=== PATIENT | male | born 1945 | race Caucasian/White ===

== ENCOUNTER → 2017-09-07 10:08 | Outpatient (CLI) | payer MEDICARE, SELFPAY ==
[2017-09-07 12:21] LABS: Absolute Lymphocyte Count 1.14 X10^3/ul (0.83-4.51); Absolute Neutrophil Count 3.6 X10^3/uL (2.0-7.7); Basophil# 0.03 X10^3/uL; Basophil% 0.5 % (0-1); Eosinophil# 0.32 X10^3/uL; Eosinophils% 5.8 % (0-5); Hematocrit 40.1 % (40-54); Lymphocyte # 1.14 X10^3/ul (4.0); Lymphocyte % 20.7 % (19-41); Mean Corp Hgb Conc 32.4 g/gl (32-36); Mean Corpuscular Hgb 29.7 pg (27.0-32.0); Mean Corpuscular Volume 91.6 fL (80-94); Mean Platelet Vol. 10.6 fl (6.2-12.0); Monocyte# 0.45 X10^3/uL; Monocyte% 8.2 % (0-10); Neutrophil # 3.56 X10^3/uL (2.7-7.7); Neutrophil % 64.6 % (47-70); Platelet Count 151 K/mm3 (150-450); RBC Distribution Width CV 12.9 % (11.6-14.6); Red Blood Count 4.38 M/mm3 (4.6-6.2); White Blood Count 5.5 K/mm3 (4.4-11.0)
[2017-09-07 12:23] LABS: POSITIVE COUNT NO; POSITIVE DIFFERENTIAL NO; POSITIVE MORPHOLOGY NO
[2017-09-07 12:29] LABS: AST(SGOT) 22 U/L (15-37); Alanine Aminotransfer ALT/SGPT 30 U/L (16-61); Albumin, Serum 3.7 g/dL (3.2-5.0); Alkaline Phosphatase 76 U/L (45-117); Anion Gap 3 (5-15); BUN 17 mg/dL (7-18); BUN/Creat Ratio 16.2 RATIO (10-20); Calcium,Total 8.7 mg/dL (8.5-10.1); Chloride 102 mmol/L (98-107); Creatinine, Serum 1.05 mg/dL (0.70-1.30); EST Glomerular Filtration Rate 74 mL/min (>60); Est Glom Filt Rate - Afr Amer 89 mL/min (>60); Globulin 3.6 g/dL (2.2-4.2); Glucose 108 mg/dL (74-106); Potassium 4.1 mmol/L (3.5-5.1); Protein, Total 7.3 g/dL (6.4-8.2); Sodium Level 137 mmol/L (136-145)
== END ==
PROVIDERS: Family Provider Family Medicine; PCP Family Medicine; Visit Provider Internal Medicine Rheumatology
DX: M17.0 Bilateral primary osteoarthritis of knee (principal); M16.0 Bilateral primary osteoarthritis of hip; M19.012 Primary osteoarthritis, left shoulder; M18.12 Unilateral primary osteoarthritis of first carpometacarpal joint, left hand
CPT/HCPCS: 36415; 80053; 85025

== ENCOUNTER → 2018-01-04 11:10 | Outpatient (CLI) | payer MEDICARE, OTHER, SELFPAY ==
--- NOTE | 2018-01-04 11:10 | DT_ITS ---
This patient was seen during an EMR downtime December 28, 2017 - January 04, 2018. This patient may have a combination of paper and electronic documentation or all paper documentation. All documentation is viewable within the e-chart portion of [employer] for each patient visit.
[2018-01-04 12:21] LABS: PSA,Total - Annual Screen 1.72 ng/mL (0.00-4.00)
== END ==
PROVIDERS: Family Provider Family Medicine; PCP Family Medicine; Visit Provider Urology
DX: Z12.5 Encounter for screening for malignant neoplasm of prostate (principal)
CPT/HCPCS: 36415; 84153; G0103

== ENCOUNTER → 2018-03-01 13:46 | Outpatient (CLI) | payer MEDICARE, OTHER, SELFPAY ==
[2018-03-01 14:52] LABS: Absolute Lymphocyte Count 1.58 X10^3/ul (0.83-4.51); Absolute Neutrophil Count 4.4 X10^3/uL (2.0-7.7); Basophil# 0.06 X10^3/uL; Basophil% 0.9 % (0-1); Eosinophil# 0.28 X10^3/uL; Eosinophils% 4.3 % (0-5); Hematocrit 40.6 % (40-54); Hemoglobin 12.7 g/dl (13.0-16.5); Lymphocyte # 1.58 X10^3/ul (4.0); Lymphocyte % 24.3 % (19-41); Mean Corp Hgb Conc 31.3 g/gl (32-36); Mean Corpuscular Volume 92.7 fL (80-94); Mean Platelet Vol. 9.8 fl (6.2-12.0); Monocyte# 0.24 X10^3/uL; Monocyte% 3.7 % (0-10); Neutrophil # 4.35 X10^3/uL (2.7-7.7); Neutrophil % 66.8 % (47-70); Platelet Count 179 K/mm3 (150-450); RBC Distribution Width CV 13.1 % (11.6-14.6); RBC Distribution Width SD 44.5 fl (35.1-43.9); Red Blood Count 4.38 M/mm3 (4.6-6.2); White Blood Count 6.5 K/mm3 (4.4-11.0)
[2018-03-01 14:56] LABS: POSITIVE COUNT NO; POSITIVE DIFFERENTIAL NO; POSITIVE MORPHOLOGY NO
[2018-03-01 15:00] LABS: AST(SGOT) 28 U/L (15-37); Alanine Aminotransfer ALT/SGPT 40 U/L (16-61); Albumin, Serum 3.9 g/dL (3.2-5.0); Alkaline Phosphatase 78 U/L (45-117); Anion Gap 3 (5-15); BUN 21 mg/dL (7-18); BUN/Creat Ratio 20.4 RATIO (10-20); Chloride 106 mmol/L (98-107); Creatinine, Serum 1.03 mg/dL (0.70-1.30); EST Glomerular Filtration Rate 75 mL/min (>60); Est Glom Filt Rate - Afr Amer 91 mL/min (>60); Glucose 143 mg/dL (74-106); Potassium 4.5 mmol/L (3.5-5.1); Protein, Total 7.9 g/dL (6.4-8.2); Sodium Level 139 mmol/L (136-145)
== END ==
PROVIDERS: Family Provider Family Medicine; PCP Family Medicine; Visit Provider Internal Medicine Rheumatology
DX: M17.0 Bilateral primary osteoarthritis of knee (principal); M16.0 Bilateral primary osteoarthritis of hip; M19.012 Primary osteoarthritis, left shoulder; M18.12 Unilateral primary osteoarthritis of first carpometacarpal joint, left hand
CPT/HCPCS: 36415; 80053; 85025

== ENCOUNTER → 2018-08-31 13:10 | Outpatient (CLI) | payer MEDICARE, OTHER, SELFPAY ==
[2017-01-23 12:09] VITALS: BMI 30.2
[2018-08-31 14:05] LABS: Absolute Lymphocyte Count 1.21 X10^3/ul (0.83-4.51); Basophil# 0.05 X10^3/uL; Basophil% 0.9 % (0-1); Eosinophil# 0.19 X10^3/uL; Eosinophils% 3.2 % (0-5); Hematocrit 41.1 % (40-54); Lymphocyte # 1.21 X10^3/ul (4.0); Lymphocyte % 20.7 % (19-41); Mean Corp Hgb Conc 31.6 g/gl (32-36); Mean Corpuscular Hgb 29.1 pg (27.0-32.0); Mean Corpuscular Volume 92.2 fL (80-94); Mean Platelet Vol. 9.6 fl (6.2-12.0); Monocyte# 0.37 X10^3/uL; Monocyte% 6.3 % (0-10); Neutrophil # 4.02 X10^3/uL (2.7-7.7); Neutrophil % 68.7 % (47-70); Platelet Count 172 K/mm3 (150-450); RBC Distribution Width CV 13.1 % (11.6-14.6); RBC Distribution Width SD 43.7 fl (35.1-43.9); Red Blood Count 4.46 M/mm3 (4.6-6.2); White Blood Count 5.9 K/mm3 (4.4-11.0)
[2018-08-31 14:08] LABS: POSITIVE COUNT NO; POSITIVE DIFFERENTIAL NO; POSITIVE MORPHOLOGY NO
[2018-08-31 14:25] LABS: AST(SGOT) 25 U/L (15-37); Alanine Aminotransfer ALT/SGPT 36 U/L (16-61); Albumin, Serum 3.8 g/dL (3.2-5.0); Alkaline Phosphatase 77 U/L (45-117); Anion Gap 4 (5-15); BUN 17 mg/dL (7-18); Calcium,Total 8.8 mg/dL (8.5-10.1); Chloride 105 mmol/L (98-107); EST Glomerular Filtration Rate 78 mL/min (>60); Est Glom Filt Rate - Afr Amer 94 mL/min (>60); Globulin 3.7 g/dL (2.2-4.2); Glucose 93 mg/dL (74-106); Potassium 4.7 mmol/L (3.5-5.1); Protein, Total 7.5 g/dL (6.4-8.2); Sodium Level 138 mmol/L (136-145)
== END ==
PROVIDERS: Family Provider Family Medicine; PCP Family Medicine; Referring Provider Internal Medicine Rheumatology; Visit Provider Internal Medicine Rheumatology
DX: M17.0 Bilateral primary osteoarthritis of knee (principal); M16.0 Bilateral primary osteoarthritis of hip; M19.012 Primary osteoarthritis, left shoulder; M18.12 Unilateral primary osteoarthritis of first carpometacarpal joint, left hand
CPT/HCPCS: 36415; 80053; 85025

== ENCOUNTER → 2018-09-23 11:00 | Outpatient (CLI) | payer MEDICARE, OTHER, SELFPAY | PROVIDERS: Family Provider Family Medicine; PCP Family Medicine; Referring Provider Family Medicine; Visit Provider Family Medicine | DX: G47.33 Obstructive sleep apnea (adult) (pediatric) (principal) | CPT/HCPCS: 98960; G0463 ==

== ENCOUNTER → 2018-12-28 10:52 | Outpatient (CLI) | payer MEDICARE, OTHER, SELFPAY ==
[2017-01-23 12:09] VITALS: BMI 30.2
[2018-12-28 12:16] LABS: Absolute Lymphocyte Count 1.03 X10^3/ul (0.83-4.51); Absolute Neutrophil Count 4.2 X10^3/uL (2.0-7.7); Basophil# 0.02 X10^3/uL; Basophil% 0.3 % (0-1); Eosinophil# 0.23 X10^3/uL; Hematocrit 37.9 % (40-54); Lymphocyte # 1.03 X10^3/ul (4.0); Lymphocyte % 17.8 % (19-41); Mean Corp Hgb Conc 31.7 g/gl (32-36); Mean Corpuscular Hgb 28.6 pg (27.0-32.0); Mean Corpuscular Volume 90.5 fL (80-94); Mean Platelet Vol. 9.6 fl (6.2-12.0); Monocyte# 0.33 X10^3/uL; Monocyte% 5.7 % (0-10); Neutrophil # 4.19 X10^3/uL (2.7-7.7); Neutrophil % 72.2 % (47-70); Platelet Count 166 K/mm3 (150-450); RBC Distribution Width CV 13.2 % (11.6-14.6); RBC Distribution Width SD 42.7 fl (35.1-43.9); Red Blood Count 4.19 M/mm3 (4.6-6.2); White Blood Count 5.8 K/mm3 (4.4-11.0)
[2018-12-28 12:21] LABS: POSITIVE COUNT NO; POSITIVE DIFFERENTIAL NO; POSITIVE MORPHOLOGY NO
[2018-12-28 12:34] LABS: AST(SGOT) 23 U/L (15-37); Alanine Aminotransfer ALT/SGPT 28 U/L (16-61); Albumin, Serum 3.5 g/dL (3.2-5.0); Alkaline Phosphatase 73 U/L (45-117); Anion Gap 6 (5-15); BUN 18 mg/dL (7-18); BUN/Creat Ratio 19.6 RATIO (10-20); Calcium,Total 8.7 mg/dL (8.5-10.1); Chloride 105 mmol/L (98-107); Creatinine, Serum 0.92 mg/dL (0.70-1.30); EST Glomerular Filtration Rate 86 mL/min (>60); Est Glom Filt Rate - Afr Amer 104 mL/min (>60); Globulin 3.6 g/dL (2.2-4.2); Glucose 107 mg/dL (74-106); Potassium 4.5 mmol/L (3.5-5.1); Protein, Total 7.1 g/dL (6.4-8.2); Sodium Level 139 mmol/L (136-145)
== END ==
PROVIDERS: Family Provider Family Medicine; PCP Family Medicine; Referring Provider Internal Medicine Rheumatology; Visit Provider Internal Medicine Rheumatology
DX: M17.0 Bilateral primary osteoarthritis of knee (principal); M16.0 Bilateral primary osteoarthritis of hip; M19.012 Primary osteoarthritis, left shoulder; M18.12 Unilateral primary osteoarthritis of first carpometacarpal joint, left hand
CPT/HCPCS: 36415; 80053; 85025

== ENCOUNTER → 2019-01-25 09:16 | Outpatient (CLI) | payer MEDICARE, OTHER, SELFPAY ==
[2019-01-25 10:10] LABS: PSA,Total - Annual Screen 2.35 ng/mL (0.00-4.00)
== END ==
PROVIDERS: Family Provider Family Medicine; PCP Family Medicine; Referring Provider Urology; Visit Provider Urology
DX: Z12.5 Encounter for screening for malignant neoplasm of prostate (principal)
CPT/HCPCS: 36415; 84153; G0103

== ENCOUNTER → 2019-02-17 09:32 | Outpatient (CLI) | payer MEDICARE, OTHER, SELFPAY ==
[2017-01-23 12:09] VITALS: BMI 30.2
[2019-02-17 12:32] LABS: ALB/GLOB Ratio 0.9 RATIO (0.9-2.4); AST(SGOT) 26 U/L (15-37); Alanine Aminotransfer ALT/SGPT 30 U/L (16-61); Albumin, Serum 3.6 g/dL (3.2-5.0); Alkaline Phosphatase 80 U/L (45-117); Anion Gap 4 (5-15); BUN 20 mg/dL (7-18); BUN/Creat Ratio 20.1 RATIO (10-20); Calcium,Total 8.8 mg/dL (8.5-10.1); Chloride 103 mmol/L (98-107); EST Glomerular Filtration Rate 78 mL/min (>60); Est Glom Filt Rate - Afr Amer 94 mL/min (>60); Globulin 3.8 g/dL (2.2-4.2); Glucose 110 mg/dL (74-106); Potassium 4.1 mmol/L (3.5-5.1); Protein, Total 7.4 g/dL (6.4-8.2); Sodium Level 137 mmol/L (136-145)
[2019-02-17 12:56] LABS: Absolute Lymphocyte Count 0.96 X10^3/uL (0.83-4.51); Absolute Neutrophil Count 3.6 X10^3/uL (2.0-7.7); Basophil# 0.04 X10^3/uL; Basophil% 0.8 % (0-1); Eosinophil# 0.19 X10^3/uL; Eosinophils% 3.7 % (0-5); Hematocrit 38.6 % (40-54); Hemoglobin 12.2 g/dL (13.0-16.5); Lymphocyte # 0.96 X10^3/ul (4.0); Lymphocyte % 18.7 % (19-41); Mean Corp Hgb Conc 31.6 g/dL (32-36); Mean Corpuscular Hgb 28.9 pg (27.0-32.0); Mean Corpuscular Volume 91.5 fL (80-94); Mean Platelet Vol. 10.3 fl (6.2-12.0); Monocyte# 0.37 X10^3/uL; Monocyte% 7.2 % (0-10); NRBC Flagged by Analyzer 0 % (0-5); Neutrophil # 3.56 X10^3/uL (2.7-7.7); Neutrophil % 69.4 % (47-70); Platelet Count 170 K/mm3 (150-450); RBC Distribution Width CV 12.7 % (11.6-14.6); RBC Distribution Width SD 42.5 fl (35.1-43.9); Red Blood Count 4.22 M/mm3 (4.6-6.2); White Blood Count 5.1 K/mm3 (4.4-11.0)
== END ==
PROVIDERS: Family Provider Family Medicine; PCP Family Medicine; Referring Provider Internal Medicine Rheumatology; Visit Provider Internal Medicine Rheumatology
DX: M17.0 Bilateral primary osteoarthritis of knee (principal); M16.0 Bilateral primary osteoarthritis of hip; M19.012 Primary osteoarthritis, left shoulder; M18.12 Unilateral primary osteoarthritis of first carpometacarpal joint, left hand; G56.03 Carpal tunnel syndrome, bilateral upper limbs
CPT/HCPCS: 36415; 80053; 85025

== ENCOUNTER → 2019-04-26 07:14 | Outpatient (CLI) | payer MEDICARE, OTHER, SELFPAY ==
--- NOTE | 2019-04-26 10:31 | NEURO ---
NCS and/or EMG Patient Report Ordering Doctor: Candida Jain DATE OF SERVICE: 04/26/19 This is a bilateral upper extremity nerve conduction study performed on this 73-year-old male with symptoms bilaterally for 1 year including numbness and tingling in hands and fingers worse while driving. There is a history of rotator cuff surgery bilaterally however he is healthy otherwise. Bilateral upper extremity sensory motor nerve conduction study is performed. The median motor and sensory distal latencies are bilaterally prolonged, mild on the left side, moderate to severe on the right side. Amplitudes are preserved however conduction velocities are slowed. The ulnar motor and sensory and radial sensory responses are normal. The median F wave latencies are mildly prolonged compared to the ulnar F-wave latencies. Impression this is an abnormal nerve conduction study of the bilateral upper extremities consistent with bilateral carpal tunnel, severe on the right side, mild to moderate on the left side. Dictated using [employer] software, not proofread
== END ==
PROVIDERS: Family Provider Family Medicine; PCP Family Medicine; Referring Provider Internal Medicine Rheumatology; Visit Provider Internal Medicine Rheumatology
DX: G56.03 Carpal tunnel syndrome, bilateral upper limbs (principal); M16.0 Bilateral primary osteoarthritis of hip; M19.012 Primary osteoarthritis, left shoulder; M18.12 Unilateral primary osteoarthritis of first carpometacarpal joint, left hand
CPT/HCPCS: 95913

== ENCOUNTER → 2019-05-20 10:29 | Outpatient (CLI) | payer MEDICARE, OTHER, SELFPAY ==
[2017-01-23 12:09] VITALS: BMI 30.2
[2019-05-20 12:12] LABS: Absolute Lymphocyte Count 1.06 X10^3/uL (0.83-4.51); Basophil# 0.06 X10^3/uL; Eosinophil# 0.33 X10^3/uL; Eosinophils% 5.6 % (0-5); Hematocrit 39.2 % (40-54); Hemoglobin 12.4 g/dL (13.0-16.5); Lymphocyte # 1.06 X10^3/ul (4.0); Lymphocyte % 18.1 % (19-41); Mean Corp Hgb Conc 31.6 g/dL (32-36); Mean Corpuscular Hgb 28.9 pg (27.0-32.0); Mean Corpuscular Volume 91.4 fL (80-94); Mean Platelet Vol. 10.1 fl (6.2-12.0); Monocyte# 0.39 X10^3/uL; Monocyte% 6.7 % (0-10); NRBC Flagged by Analyzer 0 % (0-5); Neutrophil # 3.99 X10^3/uL (2.7-7.7); Neutrophil % 68.3 % (47-70); Platelet Count 150 K/mm3 (150-450); RBC Distribution Width CV 13.1 % (11.6-14.6); RBC Distribution Width SD 43.1 fl (35.1-43.9); Red Blood Count 4.29 M/mm3 (4.6-6.2); White Blood Count 5.9 K/mm3 (4.4-11.0)
[2019-05-20 12:36] LABS: ALB/GLOB Ratio 1.1 RATIO (0.9-2.4); AST(SGOT) 23 U/L (15-37); Alanine Aminotransfer ALT/SGPT 29 U/L (16-61); Albumin, Serum 3.7 g/dL (3.2-5.0); Alkaline Phosphatase 67 U/L (45-117); Anion Gap 2 (5-15); BUN 18 mg/dL (7-18); BUN/Creat Ratio 17.8 RATIO (10-20); Calcium,Total 9.3 mg/dL (8.5-10.1); Chloride 106 mmol/L (98-107); Creatinine, Serum 1.01 mg/dL (0.70-1.30); EST Glomerular Filtration Rate 77 mL/min (>60); Est Glom Filt Rate - Afr Amer 93 mL/min (>60); Globulin 3.4 g/dL (2.2-4.2); Glucose 114 mg/dL (74-106); Potassium 4.6 mmol/L (3.5-5.1); Protein, Total 7.1 g/dL (6.4-8.2); Sodium Level 137 mmol/L (136-145)
== END ==
PROVIDERS: Family Provider Family Medicine; PCP Family Medicine; Referring Provider Internal Medicine Rheumatology; Visit Provider Internal Medicine Rheumatology
DX: M17.0 Bilateral primary osteoarthritis of knee (principal); M16.0 Bilateral primary osteoarthritis of hip; M19.012 Primary osteoarthritis, left shoulder; M18.12 Unilateral primary osteoarthritis of first carpometacarpal joint, left hand; G56.03 Carpal tunnel syndrome, bilateral upper limbs
CPT/HCPCS: 36415; 80053; 85025

== ENCOUNTER 2019-06-22 20:32 | Emergency (ER) | payer OTHER, MEDICARE, SELFPAY ==
[2019-06-22 20:33] VITALS: BP 157/88; PULSE 73; RESP 15; TEMP 36.8; O2SAT 96; BMI 31.6
--- NOTE | 2019-06-22 20:56 | NURSING ---
pt with pain in left lower quadrant. BSx4. abd soft, non-tender on palpation. no eccymosis. redness. or open areas noted.
--- NOTE | 2019-06-22 21:27 | EKG12_ITS ---
Test Reason : FALL Blood Pressure : / mmHG Vent. Rate : 061 BPM Atrial Rate : 061 BPM P-R Int : 188 ms QRS Dur : 092 ms QT Int : 404 ms P-R-T Axes : 046 -05 066 degrees QTc Int : 406 ms Normal sinus rhythm Inferior infarct , age undetermined Abnormal ECG Confirmed by CROW GARCÍA, AALIYAH ([id number]), graphic editor ENRIQUE MARSH ([id number]) on 06/24/2019 11:03:13 AM Referred By: ANJELICA Confirmed By:AALIYAH MARIA MD
--- NOTE | 2019-06-22 21:27 | CT_ITS ---
STUDY: CT BRAIN WITHOUT CONTRAST REASON FOR EXAM: Male, 73 years old. Posttraumatic syncope RADIATION DOSAGE (If Supplied By Facility): CTDIvol = ( 44.99 ) mGy, DLP = ( 812.98 ) mGycm TECHNIQUE: Transaxial CT imaging of the brain was performed without administration of intravenous contrast material. Individualized dose optimization techniques were used for this CT. COMPARISON: No relevant priors. FINDINGS: Normal soft tissue structures. Normal calvarium. Mild atrophy and periventricular white matter ischemic changes.. Normal basal ganglia and thalami. Normal brainstem. Normal cerebellum. There is no intracranial hemorrhage. There are no findings of an acute ischemic infarction. Postsurgical changes of the orbits. Mucosal thickening of the maxillary sinuses bilaterally greater on the right. Postsurgical changes of the right maxillary sinus CT/Brain/Head without Contrast IMPRESSION: Mild atrophy and periventricular white matter ischemic changes. No evidence for acute intracranial bleed Electronically Signed: Issa Thornton MD at 22:47 EST , Service support ,
--- NOTE | 2019-06-22 21:28 | RAD_ITS ---
STUDY: X-RAY CHEST REASON FOR EXAM: Male, 73 years old. Fall TECHNIQUE: Frontal and lateral views COMPARISON: None. FINDINGS: The lungs are clear and expanded. There is no demonstrated pleural abnormality. Normal size heart. Normal mediastinum and kristan. Normal visualized pulmonary arteries. Normal visualized aortic arch and descending thoracic aorta. Degenerative changes of the visualized thoracic spine. Normal visualized ribs, clavicles, and shoulders. There is no demonstrated abnormality of the visualized soft tissue structures of the upper abdomen. RAD/Chest PA and Lateral IMPRESSION: Normal x-ray examination of the chest. Electronically Signed: Pablo Chaidez DO at 23:14 EST Tel [phone], Service support ,
--- NOTE | 2019-06-22 21:28 | CT_ITS ---
STUDY: CT ABDOMEN AND PELVIS WITH CONTRAST REASON FOR EXAM: Male, 73 years old. S/P FALL FROM 10 FOOT LADDER ON 1330 TODAY, C/O LLQ PAIN, DOES NOT REMEMBER THE FALL, HX HTN, APPY, [place] RADIATION DOSAGE (If Supplied By Facility): CTDIvol = ( 22.39 ) mGy, DLP = ( 2448.39 ) mGycm TECHNIQUE: Transaxial images were obtained from the dome of the diaphragm to the symphysis pubis without oral contrast. Oral and amp; IV Gastrografin and amp; 100mL Isovue-370 100ML was administered. Sagittal and coronal images were reconstructed. Individualized dose optimization techniques were used for this CT. COMPARISON: CT of the abdomen and pelvis dated April 04, 2015 FINDINGS: There is marked swelling of the lower aspect of the left rectus abdominis muscle due to an internal hematoma. Several tiny foci of right hemorrhage is present indicating these are more acute or could be possibly actively bleeding. There is a small amount of lower abdominal and intrapelvic hemorrhage emanating from the left rectus abdominis muscle. No large or obvious artery is seen demonstrating contrast extravasation or active hemorrhaging. Tiny bilateral pleural effusions are present. Normal liver. Tiny hypodensity seen in the medial aspect of the left lobe of the liver. No intrahepatic biliary duct dilatation or liver mass. No demonstrated solid organ laceration. Normal gallbladder and extrahepatic biliary system. Normal spleen. Normal pancreas. Normal bilateral adrenal glands. Small parapelvic cysts are present in both kidneys. A 2 mm calyceal stone is present in the upper pole of the left kidney. A 2 mm calyceal stone is present in the midpole of the right kidney. No hydronephrosis. No hydronephrosis or renal masses. No large stones. Normal visualized stomach. Normal small intestine. Normal colon. . No bowel dilatation or obstruction. No free air or free fluid. The appendix is visualized and appears normal. There is diffuse atherosclerotic calcification of the abdominal aorta, without a demonstrated aneurysm. Normal inferior vena cava. Normal retroperitoneum. Normal urinary bladder. There is a small umbilical hernia containing fat. There are diffuse degenerative changes of the visualized lumbar spine. Bilateral hip prostheses are present. No visualized acute fractures. A small fat-containing right inguinal hernia is present. CT/Abdomen/Pelvis WITH Contrast IMPRESSION: 1. There is marked swelling of the lower aspect of the left rectus abdominis muscle due to an internal hematoma. Several tiny foci of right hemorrhage is present indicating these are more acute or could be possibly actively bleeding. 2. There is a small amount of lower abdominal and intrapelvic hemorrhage emanating from the left rectus abdominis muscle. 3. No large or obvious artery is seen demonstrating contrast extravasation or active hemorrhaging. 4. Small bilateral kidney stones. Electronically Signed: Anthony Gregg MD at 0:02 EST , Service support ,
[2019-06-22] MEDS: 0.9% Normal Saline 1,000 ML 1000 ML IV (22:07)
[2019-06-22] MEDS: Morphine 4 MG/ML Syringe IV (22:07)
[2019-06-22 22:28] LABS: Hematocrit 37.2 % (40-54); Hemoglobin 11.9 g/dL (13.0-16.5); Mean Corpuscular Hgb 29.5 pg (27.0-32.0); Mean Corpuscular Volume 92.3 fL (80-94); Platelet Count 160 K/mm3 (150-450); RBC Distribution Width CV 12.9 % (11.6-14.6); RBC Distribution Width SD 43.8 fl (35.1-43.9); Red Blood Count 4.03 M/mm3 (4.6-6.2); White Blood Count 9.3 K/mm3 (4.4-11.0)
[2019-06-22 22:37] LABS: ALB/GLOB Ratio 1.2 RATIO (0.9-2.4); AST(SGOT) 33 U/L (15-37); Alanine Aminotransfer ALT/SGPT 33 U/L (16-61); Albumin, Serum 3.7 g/dL (3.2-5.0); Alkaline Phosphatase 73 U/L (45-117); Anion Gap 7 (5-15); BUN 19 mg/dL (7-18); BUN/Creat Ratio 18.8 RATIO (10-20); Calcium,Total 8.9 mg/dL (8.5-10.1); Chloride 106 mmol/L (98-107); Creatinine, Serum 1.01 mg/dL (0.70-1.30); EST Glomerular Filtration Rate 77 mL/min (>60); Est Glom Filt Rate - Afr Amer 93 mL/min (>60); Estimated Creatinine Clearance 68.34 ml/min; Globulin 3.1 g/dL (2.2-4.2); Glucose 137 mg/dL (74-106); Lipase 96 U/L (73-393); Potassium 4.3 mmol/L (3.5-5.1); Protein, Total 6.8 g/dL (6.4-8.2); Sodium Level 140 mmol/L (136-145)
[2019-06-22 22:43] VITALS: BP 156/80; PULSE 56; RESP 20; O2SAT 99
--- NOTE | 2019-06-22 22:49 | ED.DCSUM_ITS ---
- ER Visit Summary Date of Service: 06/22/19 Chief Complaint: Fall, possible syncopal episode History of Present Illness: The patient is a 73 M who presents after a fall that occurred today. Patient states he was on a ladder when he fell. Patient does not remember any of the events around the fall. Patient is unsure if he passed out while he was on the ladder and fell. Patient remembers being on the ladder and then remembers a friend helping him up. Patient denies any chest pain or shortness of breath. Patient admits to some abdominal pain. Patient states this is worse with movement. Patient states it is over the lower abdomen. Patient denies any paresthesias or weakness. Physical Examination: Vital signs are stable. Patient is afebrile. Patient is in no acute distress. Pupils are equal, round, reactive to light bilaterally. Extraocular muscles are intact. Oral mucosa is pink and moist. Neck is supple. Trachea is midline. There is no JVD. Heart was regular rate and rhythm. Lungs are clear and equal bilateral. There is good respiratory effort noted. Abdomen is soft. Bowel sounds are normal. There is mild lower abdominal tenderness. There is no rebound or guarding noted. Cranial nerves II through XII are intact. There are no focal motor or sensory deficits noted. Test Results: EKG showed a normal sinus rhythm with a rate of 61. There are no acute ST or T wave changes. CT scan of the brain was obtained and does not show any acute intracranial abnormality. PA and lateral chest x-ray was obtained. There is no acute cardiopulmonary process. CBC showed a hemoglobin of 11.9 and hematocrit 37.2. Comprehensive metabolic profile was essentially within normal limits. Urinalysis was normal. CT scan of the abdomen and pelvis was obtained. There is a left lower rectus abdominis muscle hematoma that is actively bl eeding. There is also some blood in the lower abdomen and pelvis that is extravasating from the rectus abdominis hematoma. This was interpreted by the radiologist and reviewed by myself. Emergency Department Course and Treatment: Patient was given IV fluids and morphine here. Patient was resting comfortably on reevaluation. Findings were reviewed with the patient and family. They requested to be transferred to [facility]. Case was discussed with Dr. Dhillon in the emergency department at [facility]. Patient will be transferred there for trauma evaluation. Patient and family understood and were agreeable with the plan. All questions were answered. Disposition: Transfer to [facility] Impression: 1. Rectus abdominal hematoma 2. Intra-abdominal hematoma This note was generated with [employer] dictation software. It may contain incorrect words, spelling, and punctuation that were not noted in review of the chart prior to signing ED Disposition - Plan for ED Patient: Disposition: [facility] Diagnosis: Abdominal wall hematoma, Intra-abdominal hematoma Referrals: Abe Payne MD [Primary Care Provider] -
[2019-06-22 23:15] LABS: Bacteria 0 SEEN /hpf (None Seen); Mucous, Urine 0 SEEN /hpf (<or=2+); Red Blood Cells-Urine 0 SEEN /hpf (0-5); White Blood Cells 0 SEEN /hpf (0-5)
[2019-06-22 23:23] LABS: Color, Urine Yellow (Yellow); Glucose, Dipstick Normal (Normal); Ketone-Dipstick Negative (Negative); Leukocyte Esterase-Dipstick Negative /ul (Negative); Nitrite-Dipstick Negative (Negative); Occult Blood-Urine Negative /ul (Negative); Protein-Dipstick 15 mg/dl (Negative); Specific Gravity, Urine 1.025 (1.002-1.030); Urine Bilirubin Dipstick Negative (Negative); Urine Clarity Clear (Clear); Urine Urobilinogen Normal (Normal)
[2019-06-22 23:32] LABS: Calcium Oxalate Crystals Ur 2+ /hpf (<or=2+); Squamous Epithelial Cells - UA 0-5 SEEN /hpf (0-5)
[2019-06-23] VITALS: BP 135/68; PULSE 63; RESP 16; O2SAT 97
[2019-06-23 01:03] VITALS: BP 132/70; PULSE 64; RESP 16; TEMP 36.8; O2SAT 99
== END 2019-06-23 01:06 | disposition short-term general hospital (02) ==
PROVIDERS: Emergency Provider Emergency Medicine; Family Provider Family Medicine; PCP Family Medicine
DX: S30.1XXA Contusion of abdominal wall, initial encounter (principal); W11.XXXA Fall on and from ladder, initial encounter; Y93.9 Activity, unspecified
CPT/HCPCS: 70450; 71046; 74177; 80053; 81001; 83690; 84484; 85027; 93005; 96361; 96374; 99285; J7030; Q9967

== ENCOUNTER → 2019-08-19 11:44 | Outpatient (CLI) | payer MEDICARE, OTHER, SELFPAY ==
[2019-08-19 14:09] LABS: Absolute Lymphocyte Count 1.24 X10^3/uL (0.83-4.51); Basophil# 0.05 X10^3/uL; Eosinophil# 0.21 X10^3/uL; Eosinophils% 4.4 % (0-5); Hematocrit 42.2 % (40-54); Hemoglobin 13.3 g/dL (13.0-16.5); Lymphocyte # 1.24 X10^3/ul (4.0); Lymphocyte % 25.8 % (19-41); Mean Corp Hgb Conc 31.5 g/dL (32-36); Mean Corpuscular Hgb 28.8 pg (27.0-32.0); Mean Corpuscular Volume 91.3 fL (80-94); Mean Platelet Vol. 10.7 fl (6.2-12.0); Monocyte# 0.29 X10^3/uL; NRBC Flagged by Analyzer 0 % (0-5); Neutrophil # 3.01 X10^3/uL (2.7-7.7); Neutrophil % 62.6 % (47-70); Platelet Count 189 K/mm3 (150-450); RBC Distribution Width CV 12.9 % (11.6-14.6); RBC Distribution Width SD 43.1 fl (35.1-43.9); Red Blood Count 4.62 M/mm3 (4.6-6.2); White Blood Count 4.8 K/mm3 (4.4-11.0)
[2019-08-19 14:21] LABS: AST(SGOT) 21 U/L (15-37); Alanine Aminotransfer ALT/SGPT 34 U/L (16-61); Albumin, Serum 3.9 g/dL (3.2-5.0); Alkaline Phosphatase 84 U/L (45-117); Anion Gap 6 (5-15); BUN 19 mg/dL (7-18); BUN/Creat Ratio 16.1 RATIO (10-20); Chloride 106 mmol/L (98-107); Creatinine, Serum 1.18 mg/dL (0.70-1.30); EST Glomerular Filtration Rate 64 mL/min (>60); Est Glom Filt Rate - Afr Amer 77 mL/min (>60); Globulin 3.8 g/dL (2.2-4.2); Glucose 118 mg/dL (74-106); Protein, Total 7.7 g/dL (6.4-8.2); Sodium Level 138 mmol/L (136-145)
== END ==
PROVIDERS: PCP Family Medicine; Referring Provider Internal Medicine Rheumatology; Visit Provider Internal Medicine Rheumatology
DX: M17.0 Bilateral primary osteoarthritis of knee (principal); M16.0 Bilateral primary osteoarthritis of hip; M19.012 Primary osteoarthritis, left shoulder; M18.12 Unilateral primary osteoarthritis of first carpometacarpal joint, left hand; G56.03 Carpal tunnel syndrome, bilateral upper limbs
CPT/HCPCS: 36415; 80053; 85025

== ENCOUNTER → 2019-09-14 10:46 | Outpatient (CLI) | payer MEDICARE, OTHER, SELFPAY ==
[2019-09-14 11:28] LABS: Hematocrit 44.1 % (40-54); Mean Corp Hgb Conc 31.7 g/dL (32-36); Mean Corpuscular Volume 91.3 fL (80-94); Mean Platelet Vol. 10.1 fl (6.2-12.0); Platelet Count 163 K/mm3 (150-450); RBC Distribution Width CV 12.6 % (11.6-14.6); RBC Distribution Width SD 41.2 fl (35.1-43.9); Red Blood Count 4.83 M/mm3 (4.6-6.2); White Blood Count 5.6 K/mm3 (4.4-11.0)
[2019-09-14 11:50] LABS: Anion Gap 3 (5-15); BUN 18 mg/dL (7-18); BUN/Creat Ratio 15.7 RATIO (10-20); Calcium,Total 9.2 mg/dL (8.5-10.1); Chloride 105 mmol/L (98-107); Creatinine, Serum 1.15 mg/dL (0.70-1.30); EST Glomerular Filtration Rate 66 mL/min (>60); Est Glom Filt Rate - Afr Amer 80 mL/min (>60); Glucose 105 mg/dL (74-106); Potassium 4.5 mmol/L (3.5-5.1); Sodium Level 138 mmol/L (136-145)
== END ==
PROVIDERS: PCP Family Medicine; Referring Provider Physician Assistant; Visit Provider Physician Assistant
DX: Z01.818 Encounter for other preprocedural examination (principal); Z01.810 Encounter for preprocedural cardiovascular examination
CPT/HCPCS: 36415; 80048; 85027

== ENCOUNTER → 2020-02-29 11:43 | Outpatient (CLI) | payer MEDICARE, OTHER, SELFPAY ==
[2020-02-29 15:33] LABS: Absolute Lymphocyte Count 1.38 X10^3/uL (0.83-4.51); Basophil# 0.03 X10^3/uL; Basophil% 0.6 % (0-1); Hematocrit 40.9 % (40-54); Hemoglobin 13.1 g/dL (13.0-16.5); Lymphocyte # 1.38 X10^3/ul (4.0); Lymphocyte % 27.7 % (19-41); Mean Corpuscular Volume 93.8 fL (80-94); Mean Platelet Vol. 10.3 fl (6.2-12.0); Monocyte# 0.32 X10^3/uL; Monocyte% 6.4 % (0-10); NRBC Flagged by Analyzer 0 % (0-5); Neutrophil # 3.03 X10^3/uL (2.7-7.7); Neutrophil % 60.9 % (47-70); Platelet Count 178 K/mm3 (150-450); RBC Distribution Width CV 12.5 % (11.6-14.6); RBC Distribution Width SD 42.8 fl (35.1-43.9); Red Blood Count 4.36 M/mm3 (4.6-6.2)
[2020-02-29 15:52] LABS: ALB/GLOB Ratio 1.3 RATIO (0.9-2.4); AST(SGOT) 26 U/L (15-37); Alanine Aminotransfer ALT/SGPT 34 U/L (16-61); Albumin, Serum 4.1 g/dL (3.2-5.0); Alkaline Phosphatase 74 U/L (45-117); Anion Gap 4 (5-15); BUN 17 mg/dL (7-18); BUN/Creat Ratio 15.6 RATIO (10-20); Calcium,Total 8.7 mg/dL (8.5-10.1); Chloride 105 mmol/L (98-107); Creatinine, Serum 1.09 mg/dL (0.70-1.30); EST Glomerular Filtration Rate 70 mL/min (>60); Est Glom Filt Rate - Afr Amer 85 mL/min (>60); Globulin 3.2 g/dL (2.2-4.2); Glucose 87 mg/dL (74-106); Potassium 4.4 mmol/L (3.5-5.1); Protein, Total 7.3 g/dL (6.4-8.2); Sodium Level 138 mmol/L (136-145)
== END ==
PROVIDERS: PCP Family Medicine; Referring Provider Internal Medicine Rheumatology; Visit Provider Internal Medicine Rheumatology
DX: M17.0 Bilateral primary osteoarthritis of knee (principal); M16.0 Bilateral primary osteoarthritis of hip; M19.012 Primary osteoarthritis, left shoulder; M18.12 Unilateral primary osteoarthritis of first carpometacarpal joint, left hand; G56.03 Carpal tunnel syndrome, bilateral upper limbs
CPT/HCPCS: 36415; 80053; 85025

== ENCOUNTER → 2020-03-01 09:38 | Outpatient (CLI) | payer MEDICARE, OTHER, SELFPAY | PROVIDERS: PCP Family Medicine; Referring Provider Urology; Visit Provider Urology | DX: Z12.5 Encounter for screening for malignant neoplasm of prostate (principal) | CPT/HCPCS: 36415; 84153; G0103 ==

== ENCOUNTER → 2020-07-25 10:43 | Outpatient (CLI) | payer MEDICARE, OTHER, SELFPAY ==
[2020-07-25 12:25] LABS: Absolute Lymphocyte Count 1.36 X10^3/uL (0.83-4.51); Absolute Neutrophil Count 3.2 X10^3/uL (2.0-7.7); Basophil# 0.06 X10^3/uL; Basophil% 1.2 % (0-1); Eosinophil# 0.24 X10^3/uL; Eosinophils% 4.7 % (0-5); Hematocrit 43.3 % (40-54); Hemoglobin 13.7 g/dL (13.0-16.5); Lymphocyte # 1.36 X10^3/ul (4.0); Lymphocyte % 26.4 % (19-41); Mean Corp Hgb Conc 31.6 g/dL (32-36); Mean Corpuscular Hgb 29.5 pg (27.0-32.0); Mean Corpuscular Volume 93.1 fL (80-94); Monocyte# 0.31 X10^3/uL; NRBC Flagged by Analyzer 0 % (0-5); Neutrophil # 3.18 X10^3/uL (2.7-7.7); Neutrophil % 61.5 % (47-70); Platelet Count 168 K/mm3 (150-450); RBC Distribution Width CV 12.6 % (11.6-14.6); RBC Distribution Width SD 43.5 fl (35.1-43.9); Red Blood Count 4.65 M/mm3 (4.6-6.2); White Blood Count 5.2 K/mm3 (4.4-11.0)
[2020-07-25 12:50] LABS: ALB/GLOB Ratio 1.1 RATIO (0.9-2.4); AST(SGOT) 19 U/L (15-37); Alanine Aminotransfer ALT/SGPT 32 U/L (16-61); Albumin, Serum 3.9 g/dL (3.2-5.0); Alkaline Phosphatase 80 U/L (45-117); Anion Gap 4 (5-15); BUN 15 mg/dL (7-18); BUN/Creat Ratio 13.5 RATIO (10-20); Calcium,Total 8.7 mg/dL (8.5-10.1); Chloride 106 mmol/L (98-107); Creatinine, Serum 1.11 mg/dL (0.70-1.30); EST Glomerular Filtration Rate 69 mL/min (>60); Est Glom Filt Rate - Afr Amer 83 mL/min (>60); Globulin 3.5 g/dL (2.2-4.2); Glucose 112 mg/dL (74-106); Potassium 4.1 mmol/L (3.5-5.1); Protein, Total 7.4 g/dL (6.4-8.2); Sodium Level 139 mmol/L (136-145)
== END ==
PROVIDERS: PCP Family Medicine; Referring Provider Internal Medicine Rheumatology; Visit Provider Internal Medicine Rheumatology
DX: M17.0 Bilateral primary osteoarthritis of knee (principal); M16.0 Bilateral primary osteoarthritis of hip; M19.012 Primary osteoarthritis, left shoulder; M18.12 Unilateral primary osteoarthritis of first carpometacarpal joint, left hand; G56.03 Carpal tunnel syndrome, bilateral upper limbs
CPT/HCPCS: 36415; 80053; 85025

== ENCOUNTER → 2020-12-21 10:59 | Outpatient (CLI) | payer MEDICARE, OTHER, SELFPAY ==
[2020-12-21 11:49] LABS: Absolute Lymphocyte Count 1.44 X10^3/uL (0.83-4.51); Absolute Neutrophil Count 2.9 X10^3/uL (2.0-7.7); Basophil# 0.07 X10^3/uL; Basophil% 1.4 % (0-1); Eosinophil# 0.28 X10^3/uL; Eosinophils% 5.5 % (0-5); Hematocrit 41.5 % (40-54); Hemoglobin 13.5 g/dL (13.0-16.5); Lymphocyte # 1.44 X10^3/ul (0.83-4.51); Lymphocyte % 28.2 % (19-41); Mean Corp Hgb Conc 32.5 g/dL (32-36); Mean Corpuscular Hgb 29.6 pg (27.0-32.0); Mean Platelet Vol. 9.8 fl (6.2-12.0); Monocyte# 0.42 X10^3/uL; Monocyte% 8.2 % (0-10); NRBC Flagged by Analyzer 0 % (0-5); Neutrophil # 2.87 X10^3/uL (2.7-7.7); Neutrophil % 56.1 % (47-70); Platelet Count 181 K/mm3 (150-450); RBC Distribution Width CV 12.1 % (11.6-14.6); RBC Distribution Width SD 40.4 fl (35.1-43.9); Red Blood Count 4.56 M/mm3 (4.6-6.2); White Blood Count 5.1 K/mm3 (4.4-11.0)
[2020-12-21 12:29] LABS: ALB/GLOB Ratio 1.1 RATIO (0.9-2.4); AST(SGOT) 23 U/L (15-37); Alanine Aminotransfer ALT/SGPT 33 U/L (16-61); Albumin, Serum 3.7 g/dL (3.2-5.0); Alkaline Phosphatase 78 U/L (45-117); Anion Gap 4 (5-15); BUN 17 mg/dL (7-18); Calcium,Total 8.8 mg/dL (8.5-10.1); Chloride 105 mmol/L (98-107); EST Glomerular Filtration Rate 77 mL/min (>60); Est Glom Filt Rate - Afr Amer 93 mL/min (>60); Globulin 3.5 g/dL (2.2-4.2); Glucose 109 mg/dL (74-106); Protein, Total 7.2 g/dL (6.4-8.2); Sodium Level 139 mmol/L (136-145)
== END ==
PROVIDERS: PCP Family Medicine; Referring Provider Internal Medicine Rheumatology; Visit Provider Internal Medicine Rheumatology
DX: M17.0 Bilateral primary osteoarthritis of knee (principal); M16.0 Bilateral primary osteoarthritis of hip; M19.012 Primary osteoarthritis, left shoulder; M18.12 Unilateral primary osteoarthritis of first carpometacarpal joint, left hand; G56.03 Carpal tunnel syndrome, bilateral upper limbs
CPT/HCPCS: 36415; 80053; 85025

== ENCOUNTER → 2021-06-24 15:18 | Outpatient (CLI) | payer MEDICARE, OTHER, SELFPAY ==
[2021-06-24 17:59] LABS: Absolute Lymphocyte Count 1.39 X10^3/uL (0.83-4.51); Absolute Neutrophil Count 4.2 X10^3/uL (2.0-7.7); Basophil# 0.06 X10^3/uL; Eosinophil# 0.22 X10^3/uL; Eosinophils% 3.5 % (0-5); Hematocrit 42.4 % (40-54); Lymphocyte # 1.39 X10^3/ul (0.83-4.51); Lymphocyte % 22.1 % (19-41); Mean Corpuscular Hgb 30.2 pg (27.0-32.0); Mean Corpuscular Volume 91.4 fL (80-94); Mean Platelet Vol. 10.4 fl (6.2-12.0); Monocyte# 0.37 X10^3/uL; Monocyte% 5.9 % (0-10); NRBC Flagged by Analyzer 0 % (0-5); Neutrophil # 4.23 X10^3/uL (2.7-7.7); Neutrophil % 67.2 % (47-70); Platelet Count 184 K/mm3 (150-450); RBC Distribution Width CV 12.6 % (11.6-14.6); RBC Distribution Width SD 41.9 fl (35.1-43.9); Red Blood Count 4.64 M/mm3 (4.6-6.2); White Blood Count 6.3 K/mm3 (4.4-11.0)
[2021-06-24 18:14] LABS: AST(SGOT) 20 U/L (15-37); Alanine Aminotransfer ALT/SGPT 32 U/L (16-61); Albumin, Serum 3.9 g/dL (3.2-5.0); Alkaline Phosphatase 73 U/L (45-117); Anion Gap 5 (5-15); BUN 16 mg/dL (7-18); BUN/Creat Ratio 13.9 RATIO (10-20); Calcium,Total 9.5 mg/dL (8.5-10.1); Chloride 105 mmol/L (98-107); Creatinine, Serum 1.15 mg/dL (0.70-1.30); EST Glomerular Filtration Rate 66 mL/min (>60); Est Glom Filt Rate - Afr Amer 79 mL/min (>60); Globulin 3.9 g/dL (2.2-4.2); Glucose 111 mg/dL (74-106); Potassium 4.4 mmol/L (3.5-5.1); Protein, Total 7.8 g/dL (6.4-8.2); Sodium Level 138 mmol/L (136-145)
== END ==
PROVIDERS: PCP Family Medicine; Referring Provider Internal Medicine Rheumatology; Visit Provider Internal Medicine Rheumatology
DX: M17.0 Bilateral primary osteoarthritis of knee (principal); M16.0 Bilateral primary osteoarthritis of hip; M19.012 Primary osteoarthritis, left shoulder; M18.12 Unilateral primary osteoarthritis of first carpometacarpal joint, left hand; G56.03 Carpal tunnel syndrome, bilateral upper limbs
CPT/HCPCS: 36415; 80053; 85025

== ENCOUNTER 2021-12-13 09:56 | Emergency (ER) | payer MEDICARE, OTHER, SELFPAY ==
[2021-12-13 09:57] VITALS: BP 148/100; PULSE 89; RESP 16; TEMP 36.6; O2SAT 99; BMI 33.0
--- NOTE | 2021-12-13 10:14 | RAD_ITS ---
STUDY: X-RAY - PELVIS AND RIGHT HIP REASON FOR EXAM: Male, 76 years old. Injury TECHNIQUE: 3 views of the pelvis and hip. COMPARISON: Comparison is made with prior examination dated 10/15/2015. FINDINGS: Status post right total hip replacement. There is a fracture through the subcapital region of the prosthetic femoral component with cephalic migration. RAD/HIP, UNI W/ Pelvis 2-3 Views IMPRESSION: Transverse fracture through the subcapital region of the prosthetic femoral component with cephalic migration of the distal fragment. Electronically Signed: Junior Doyle MD at 11:52 EDT ,
--- NOTE | 2021-12-13 10:22 | ED.VIS.LOWEX ---
HPI History of Present Illness Chief Complaint: Lower Extremity Injury Informant: patient Onset/Context/Timing Onset: Yesterday Context: Sudden Onset (See below) Timing: Continuous Quality of Pain: Aching Location: Right hip into groin Current Severity: Mild Maximum Severity: Severe Worsened by: Moving and walking Relieved by: Resting and remaining still Associated Symptoms Associated Symptoms: Negative for Parasthesia, Weakness and Loss of Funtion Narrative Narrative: Patient has a history of a remote right hip replacement, he was dismounting his tractor in the field yesterday, I states he uses his arms to get out of the tractor more than just jumping onto his legs, and did so in the same manner that he usually does but when he hit the ground he noticed sudden pain in his right hip. It worsened into last night as he got around on it but he has been able to bear weight the entire time. He has noticed cracking and popping with movement. He states this morning it does not hurt as bad and I should have come in last night but the pain is persistent and so he presents for evaluation. Denies any other injury or pain, including the back/buttock. No bowel or bladder dysfunction or sciatica symptoms. [facility] Medical History (Updated 12/13/21 @ 12:[address] Real Reno MD) BPH (benign prostatic hyperplasia) Coronary artery disease Dyslipidemia Nephrolithiasis Home Medications Venlafaxine Xr [Effexor Xr] 75 mg PO QHS 04/04/15 [History Last Taken 04/14/15] aspirin 81 mg PO QHS 04/04/15 [History Last Taken 04/14/15] atorvastatin 40 mg PO QHS 04/04/15 [History Last Taken 04/14/15] finasteride 5 mg PO QHS 04/04/15 [History Last Taken 04/14/15] sildenafil [Viagra] 100 mg PO DAILY PRN PRN 04/04/15 [History Last Taken Unknown] tamsulosin 0.4 mg PO QHS 04/04/15 [History Last Taken 04/14/15] Omeprazole [Prilosec] 40 mg PO DAILY 01/23/17 [History Last Taken Unknown] doxazosin [Cardura Xl] 4 mg PO DAILY 01/23/17 [History Last Taken Unknown] lisinopril [Prinivil] 10 mg PO DAILY 01/23/17 [History Last Taken Unknown] hydrocodone-acetaminophen 1 tab PO Q4H PRN PRN 2 Days #10 tablet 12/13/21 [Rx Last Taken Unknown] Allergy/AdvReac Type Severity Reaction Status Date / Time No Known Allergies Allergy Verified 12/13/21 09:59 Social History Smoking Status: Never smoker ROS ROS ED Constitutional Constitutional ED: Denies chills or fever(s) Musculoskeletal Musculoskeletal: Reports extremity pain; Denies neck pain Integumentary Denies Abrasions, rash or wounds Neurologic Neurologic: Denies paresthesias or weakness EXAM Physical Exam Const Vital Signs: 12/13/21 09:57 Temperature 97.8 F Temperature Source Temporal Pulse Rate 89 Respiratory Rate 16 Blood Pressure 148/100 H Blood Pressure Mean 116 Pulse Ox 99 Oxygen Delivery Method Room Air Positive well nourished and well developed General Appearance ED: well developed and NAD Neck full ROM and supple Back/Spine normal ROM and normal to inspection Extremity Extremity Narrative: Minimal tenderness at the lateral aspect of the right hip including the greater trochanter. No deformities. Full range of motion, increased pain with internal rotation of the right hip. Pelvis is stable to AP compression, no pain. ASIS nontender. No shortening. Pulses intact. No other bony tenderness throughout the right lower extremity. The other 3 extremities range fully without any difficulty. Neuro oriented x3, no focal motor deficits and no sensory deficits noted Sensorium / Orientation: alert Psych mental status grossly normal and thought process normal Skin no wounds Rashes: no rashes MDM MDM MDM Narrative Medical decision making narrative: Three-view x-ray series of the right hip shows a deformity of the prosthetic on my interpretation. No bony fracture. Radiology in agreement, there is a subcapital fracture of the prosthetic device. Discussed with Dr. Rothman. He spoke with Dr. Jordan who could do the surgery he needs, it currently is Thursday and he would not be available to perform the surgery before Thursday. We discussed options, the patient prefers to go home and remain nonweightbearing and see Dr. Jordan and the office on Thursday to schedule surgery. He has crutches at home and states he has used them before to be nonweightbearing on one of his legs and he is comfortable doing that. We discussed the options of being transferred, and/or being admitted to the hospital here until after Thursday, but the patient prefers not to do that. He understands to be less active all weekend as he is not able to bear weight on his right lower extremity. Will prescribe him something for pain in addition. was present during all of these conversations and they are both comfortable with that overall plan. Radiography Diagnostic Testing: Clinical Impression(s) from Imaging Studies Hip/Pelvis X-Ray 12/13/21 10:14 IMPRESSION: Transverse fracture through the subcapital region of the prosthetic femoral component with cephalic migration of the distal fragment. Electronically Signed: Junior Doyle MD at 11:52 EDT , Discharge Plan Triage Chief Complaint: Lower Extremity Injury ED Provider: Real Reno Dx/Rx/DC Orders Clinical Impression: Periprosthetic fracture around internal prosthetic right hip joint Instructions: Hip Fracture Surgery: Preparation Prescriptions: New hydrocodone-acetaminophen [hydrocodone-acetaminophen] 1 TABLET tablet 1 tab PO Q4H PRN PRN (Reason: Pain) 2 Days Qty: 10 RF: 0 No Action atorvastatin 40 MG tablet 40 mg PO QHS RF: 0 aspirin 81 MG tablet 81 mg PO QHS RF: 0 sildenafil [Viagra] 100 MG tablet 100 mg PO DAILY PRN PRN (Reason: Not Specified) RF: 0 tamsulosin 0.4 MG capsule 0.4 mg PO QHS RF: 0 finasteride 5 MG tablet 5 mg PO QHS RF: 0 Venlafaxine Xr [Effexor Xr] 75 MG capsule 75 mg PO QHS RF: 0 lisinopril [Prinivil] 10 MG tablet 10 mg PO DAILY RF: 0 doxazosin [Cardura XL] 4 MG tablet extended release 24hr 4 mg PO DAILY RF: 0 Omeprazole [Prilosec] 40 MG capsule 40 mg PO DAILY RF: 0 Primary Care Provider: Abe Payne Referrals: Andrez Jordan MD [STAFF PHYSICIAN] - 12/16/21 (Call for appointment time) Abe Payne MD [Primary Care Provider] - Activity Restrictions/Additional Instructions: You must remain nonweightbearing on your right lower extremity. Use crutches, walker, what ever you need to transfer to restroom and around her house, but otherwise rest. Disposition Disposition: Home, Self Care
[2021-12-13 13:24] VITALS: BP 139/92; PULSE 72; RESP 16; TEMP 36.4; O2SAT 99
== END 2021-12-13 13:24 | disposition home or self-care (01) ==
PROVIDERS: Emergency Provider Emergency Medicine; PCP Family Medicine; Visit Provider Emergency Medicine
DX: S72.011A Unspecified intracapsular fracture of right femur, initial encounter for closed fracture (principal); M97.01XA Periprosthetic fracture around internal prosthetic right hip joint, initial encounter; X58.XXXA Exposure to other specified factors, initial encounter; Y93.89 Activity, other specified; Y99.8 Other external cause status; Y92.73 Farm field as the place of occurrence of the external cause; I25.10 Atherosclerotic heart disease of native coronary artery without angina pectoris; E78.5 Hyperlipidemia, unspecified; N40.0 Benign prostatic hyperplasia without lower urinary tract symptoms; Z96.649 Presence of unspecified artificial hip joint; Z79.82 Long term (current) use of aspirin; Z79.899 Other long term (current) drug therapy
CPT/HCPCS: 73502; 99283

== ENCOUNTER 2021-12-20 11:04 | Inpatient (IN) | payer MEDICARE, OTHER, SELFPAY ==
[2021-12-20] VITALS (12 sets, daily range): BP systolic 100–164; BP diastolic 48–97; PULSE 63–79; RESP 16–18; TEMP 36.3–36.9; O2SAT 95–99; BMI 33.0; BMI 37.1
[2021-12-20] MEDS: Gabapentin 600 MG Tablet PO (12:06)
[2021-12-20] MEDS: Acetaminophen 500 MG Tablet 1000 MG PO ×2 (12:06→22:10)
[2021-12-20] MEDS: Celecoxib 200 MG Capsule 400 MG PO (12:06)
[2021-12-20] MEDS: Lactated Ringers 1,000 ML 999 ML IV ×2 (12:07→18:21)
[2021-12-20 12:12] LABS: Magnesium 2.3 mg/dL (1.6-2.6)
[2021-12-20 12:26] LABS: Bedside Glucose 115 mg/dL (74-106)
[2021-12-20] MEDS: Lactated Ringers 1,000 ML 75 ML IV ×2 (13:38→16:30)
--- NOTE | 2021-12-20 13:45 | SYN_PTH ---
PATIENT: ANUPAMA MARSH LOC: MS3 U#:[id number] AGE/SX: 76/M ROOM: [facility] [place] RE12/20/[address]: Dr. Andrez Jordan MD : [id number] BED: 1 DIS: 12/21/2021 SPEC #: [id number] RECD: 12/24/21 07:46 STATUS: JOSHUA CALVILLO #: [id number] RAZ: 12/20/21 13:[address]: Andrez Jordan DEPT: SURGICAL PATHOLOGY RECD BY: Kymberly Barber ENTERED: 12/24/21 09:09 SP TYPE: SYNOVIUM OTHR DR: MD Dr. Joseline Tapia MD Dr. William Lago, MD Tissues: Synovial tissue of joint, NOS Procedures: Surgery Specimen Level III HEADER OPERATION: Total hip revision, posterior PRE-OP DIAGNOSIS: Mechanical complications of internal right hip prosthesis TISSUE SUBMITTED: Synovium membrane MICROSCOPIC DIAGNOSIS Synovial membrane, excision: Fibrosis, inflammation and histiocytic reaction with pigment material. AM:hilario 12/25/2021 MICROSCOPIC DESCRIPTION Slides are reviewed. GROSS DESCRIPTION Received in fixative is one container labeled with the patient's name and designated synovium membrane. The specimen consists of multiple irregular and rubbery fragments of light to dark tucker soft tissue that in aggregate measure 11 x 10.5 x 2 cm. Serial sections do not reveal mass lesions. Cylinder Valve Repairer sections are submitted in two cassettes. / AM:hilario 12/24/2021 :5 CPT: 29172
[2021-12-20] MEDS: Cefazolin 2 GM in 0.9% Normal Saline 100 ML IV (14:15)
[2021-12-20] MEDS: TXA 1000mg in NS100 100ml (IVPB at Incision) 660 MG IV (14:40)
[2021-12-20] MEDS: dexAMETHasone 10 MG/ML Vial IV (14:50)
[2021-12-20] MEDS: TXA 1000mg in NS100 100ml (IVPB at Closure) 660 MG IV (17:17)
--- NOTE | 2021-12-20 17:42 | PCM.OPRPT ---
Report of Operation Date of Procedure: 12/20/21 Pre-Operative Diagnosis: Painful right total hip replacement, failed prosthesis Post-Operative Diagnosis: Painful right total hip replacement, failed prosthesis Surgery/Procedure Performed:: Complete synovectomy right hip Complete revision right hip both components Description of Surgical Findings:: Patient had severe machining of the femoral trunnion with complete separation of the femoral head and trunnion. Additionally there was severe metallosis which was completely debrided with complete synovectomy of the right hip. Acetabular component had metal deformity around the rim damaging the locking mechanism. Surgeon: Andrez Jordan supervisor packing: Mega aMrquez Type of Anesthesia: Spinal Anesthesiologist: Yamilet Agustin Special Medications: Ancef, vancomycin, joint cocktail Specimen's removed: 3 separate specimens were sent to microbiology. Some of the black metallosis synovium was sent for pathology. Drains: None Estimated Blood Loss (mL): 400 Fluids Replaced: 1900 mL crystalloid Description of Procedure: Findings: Adequate reduction with stability of the hip and equal leg lengths measured intraoperatively. Components used: 1. Kelle alevism modular femoral stem 155 x 19 2. Kelle alevism modular 23, +0 cone body 3. Kelle X3 polyethylene liner, for MDM alpha code 46F 4. [place] Biolox delta 28 mm, +4 mm neck femoral head 5. Kelle MDM metal liner alpha code F Brief history operative indications: 76-year-old male who had a right total hip replacement in 2008 by my partner presented 1 week ago today with increased pain and inability to ambulate. He was seen in the office on Thursday where he was noted to have a complete separation of the implants. We elected to proceed with surgery in an urgent manner. I discussed the track record of his implant and the associated complications. Surgery would require revision of both components due to internal destruction to both the acetabular and femoral component. Complete revision total hip replacement was recommended, risks and benefits were discussed with the patient which included but were not limited to blood loss, DVTs, PEs, infection, neurovascular damage, and dislocation. In light of all this patient did agree to proceed with a revision total hip arthroplasty. Medical clearance was obtained from his city carrier, his primary care physician and the case was discussed with anesthesia for appropriateness throughout the week. Procedure: On the date of procedure the patient's r hip was marked in the preoperative area. Patient was then taken back to the operating room where anesthesia assumed control of the C-spine and airway and administered anesthetic. Patient was transferred to the operating table and placed in the lateral decubitus position with the affected hip up. The patient was secured in the bed with the lateral positioners and leg lengths were checked. The r lower extremity was then prepped out in a sterile fashion using chlorhexidine while the surgeon scrubbed. Upon reentering the room the r lower extremity was draped in the standard orthopedic fashion and the incision was marked. A timeout was called and everyone agreed upon the side, the site, the procedure be performed, antibiotics given, and patient's identity. At this time incision was made through skin, subcutaneous tissue, and fat down to fascia. Once we are down to level the fascia there was a blue tent to the central portion of the fascia and a bulging in this area over the greater trochanter. The fascia was then incised and a Charley retractor was placed. Soon as we incised the fascia there was dark black tissue. We carefully began proceeding with a full and complete synovectomy of any dark black tissue. Dark black tissue did cause de la torre with our Bovie cautery consistent with metallosis. As we performed the synovectomy we carefully were able to debride down to the joint. We were able to identify the femoral trunnion and dislocate the hip in an appropriate manner. This allowed us to carefully work on the femoral stem. We used flexible osteotomes and a bur to bur around the femoral stem ingrowth portion. Once this was adequately the extractor was placed. We were able to back slapped the femoral stem out without performing an osteotomy. We then directed our attention to the acetabulum. The 54 mm previous acetabulum was identified and a 54 mm cup tome with 36 mm head was prepared with short and long blades. Initially we used the short plate and the long plate. Once we had adequately debrided around the cup and it we remove the liner and remove the screw. The cup was then easily removed with a Jasmine. After this we carefully reamed up to a 58 mm cup and had a solid bleeding bone bed. We then directed our attention back to the femur where we carefully reamed the femur for a 19 mm 155 mm stem. After this was done all retractors were removed and the wound was copiously irrigated out with 6 L of normal saline as the complete debridement had been performed. After we irrigated out the wound we again moved on with reconstruction of the hip. Our attention was then directed to the acetabulum and the anterior retractor was placed and a Gelpi was used to retract the posterior capsule superiorly. At this time the acetabular component was opened and impacted into place. The external guide was used to verify appropriate placement of the cup. Once we are happy with our abduction and anteversion using the Au Franc guide 2 screws were placed orthogonally. The MDM liner was then impacted into place and appeared to seat appropriately. We then used the hemostat to verify the locking mechanism and it was well reduced. At this time we turned our attention back to the femur. Femoral stem was impacted into place and using the previous stem we templated for a 23 mm body as this gave us a similar stem length and offset compared to his previous hip replacement. The proximal femur was reamed for a 23 mm body. 23 mm cone body trial was impacted into place and placed in 20 degrees of anteversion. The hip was properly reduced using traction and external rotation. Stability was checked with the appropriate amount of shuck, no impingement with external rotation, and stable at 90? flexion and 90? internal rotation. Leg lengths were checked and were found to be equal on the table. Once the hip was determined to be stable the trial components were dislocated. The final components were verified and opened. The wound was copiously irrigated out with normal saline. The acetabulum was checked for any residual debris. The final components were placed and impacted in the appropriate anteversion. Trunnion was cleaned and the femoral head was placed. Traction and external rotation were again used to reduce the hip. After adequate reduction the hip remained stable with appropriate leg lengths. The wound was then copiously irrigated with normal saline once more, and hemostasis was obtained. The posterior capsule structures were not repairable. Closure was then done using #1 Vicryl to close the fascia. We did use some #2 FiberWire to repair the area where the herniation was upon entry where the fascia was then. #1 Vicryl was used to close the deep fatty layer. A 2-0 Vicryl interrupted sutures were used to close the subcutaneous skin. Skin anastasia were used for final skin closure. A sterile dressing was placed. Patient was awakened by anesthesia and transferred to the [facility]. Patient was then transferred to the PACU for recovery. Postoperative plan: Patient will get 24 hours postop antibiotics. Patient will get in-house physical therapy and will be weight-bear as tolerated. Patient will follow up in office in 2 weeks for a wound check and x-rays. Patient be placed on Xarelto for 2 weeks as he has had a prolonged period of immobilization followed by 2 weeks of aspirin 81 mg twice daily. Posterior hip precautions for 3 months. Grafts/Implants Used: [place] Complications No intraoperative complications Admit VTE Documentation VTE Present on Admission: No VTE Mechan Device Prophylaxis: SCD's VTE Pharm Prophylaxis ordered?: Yes
--- NOTE | 2021-12-20 18:16 | RAD_ITS ---
STUDY: X-RAY - PELVIS AND RIGHT HIP REASON FOR EXAM: Male, 76 years old. Post Op -- AP both hips on single nato/lateral of op hip PACU TECHNIQUE: XR Hip Unilateral with Pelvis when performed; 2-3 Views COMPARISON: None. FINDINGS: There is no fracture or dislocation. There is anatomic alignment. The soft tissue planes are preserved. Total hip arthroplasty. Skin anastasia are seen along the anterior lateral aspect of the hip. There is an air-fluid level seen in the operative site. Joint space is preserved. Subcutaneous air is noted. RAD/Hip Min 2 Views (Portable) IMPRESSION: Successful total hip arthroplasty. . Electronically Signed: Octaviano Salamanca MD at 18:34 EDT Reading Location ID and State: [facility] / [place] , Service support ,
[2021-12-20 18:21] LABS: Bedside Glucose 185 mg/dL (74-106)
--- NOTE | 2021-12-20 19:26 | PCM.PN.HOSP ---
Subjective Subjective Patient is a 76-year-old male with a significant history of obstructive sleep apnea on CPAP; anxiety disorder; hypertension; bilateral total hip replacements who is postop day 0 for complete synovectomy right hip and Complete revision of right hip both components. He reported that in the past year his right hip has felt different. Reportedly a week before his revised surgery (12/20/2021) patient's went down while climbing off a tractor. He noted his pain in his right hip and the following day he went to the emergency department. Eventually internal medicine service has been consulted to help manage chronic medical condition which includes hypertension; anxiety disorder; and hypertension; hyperlipidemia and elevated risk for atherosclerotic sclerotic cardiovascular disease. Patient denies any pain at this time. Objective Data Objective Data Vital Signs: Vital Signs Temp Pulse Resp BP Pulse Ox 97.8 F 74 18 121/64 H 99 12/20/21 19:14 12/20/21 19:14 12/20/21 19:14 12/20/21 19:14 12/20/21 19:14 Oxygen Flow Rate (L/min) 4 Oxygen Delivery Method Nasal Cannula Weight: 104.326 kg Body Mass Index (BMI) 33.0 Intake & Output: Intake and Output for Last 24 Hours 12/18/21 12/19/21 12/20/21 23:59 23:59 23:59 Intake Total 3962 / 3962 Balance 3962 / 3962 Lab / Micro Data Labs: Laboratory Results - last 24 hr 12/20/21 11:50: Magnesium 2.3 12/20/21 11:56: POC Glucose 115 H 12/20/21 13:35: Blood Type O NEGATIVE, Antibody Screen NEGATIVE 12/20/21 18:14: POC Glucose 185 H Radiography Diagnostic Testing: Radiology Impression Hip X-Ray 12/20/21 18:16 IMPRESSION: Successful total hip arthroplasty. . Electronically Signed: Octaviano Salamanca MD at 18:34 EDT Reading Location ID and State: [facility] / [place] , Service support , Physical Exam Narrative Physical exam: General: Well-nourished, well-developed. Head: Normocephalic, atraumatic, no tenderness Eyes: Vision is grossly intact. EOMI ENT, no trauma, moist mucous membranes, no rhinorrhea Neck: Nontender, full range of motion, no spinal tenderness. CVS: Regular rate and rhythm. S1-S2 present. No murmur, gallop or rub. Respiratory : Right base with mild Rales. Clear to auscultation in other lung cortes. Chest wall nontender, no wheezing Abdomen: Soft, nontender, nondistended, normal bowel sounds, no masses : Deferred Back: Nontender, no CVA tenderness. Extremities: Right hip with dry intact dressing and with a Polar Care. Bilateral lower extremities with thigh-high LURDES hose and SCDs to legs. Skin: Normal color, no abrasions Neuro: Alert, oriented, cranial nerves II through XII grossly intact. Psychiatry: Normal mood. Normal affect. Not depressed. Not anxious. Assessment & Plan Assessment/Plan (1) Periprosthetic fracture around internal prosthetic right hip joint: QUALIFIERS: Encounter type: initial encounter Qualified Code(s): M97.01XA - Periprosthetic fracture around internal prosthetic right hip joint, initial encounter (2) Obstructive sleep apnea: (3) BPH (benign prostatic hyperplasia): QUALIFIERS: Lower urinary tract symptom presence: unspecified whether lower urinary tract symptoms present Qualified Code(s): N40.0 - Benign prostatic hyperplasia without lower urinary tract symptoms PLAN: Periprosthetic fracture around internal prosthetic right hip joints status post Complete synovectomy right hip; and Complete revision right hip both components. Postop day 0. Hip/pelvis x-ray on 12/13/2021 was visualized and independently interpreted: Disruption of a previous hip replacement noted. Hip x-ray post surgery on 12/20/2021 visualized and independently interpreted. I agree with radiologist interpretation of successful total hip arthroplasty. Incentive spirometer. Management by primary. Obstructive sleep apnea on home CPAP CPAP ordered with oxygen bled in as needed to maintain oxygen saturation of at least 90%. Hypertension Blood pressure is within goal Cozaar and Cardura continued. Trend blood pressure and adjust blood pressure medications. BPH Cardura and finasteride continued. Restless leg syndrome Gabapentin continued GERD Omeprazole continued Anxiety disorder Venlafaxine continued. DVT prophylaxis: With SCDs; LURDES hose and Xarelto. Charges/Coding Visit Charges Inpatient E&M: 50435 Subs Hosp L2
[2021-12-20] MEDS: oxyCODONE 5 MG Tablet PO (22:09)
[2021-12-20] MEDS: Senna/Docusate Sodium 1 Tablet 2 TABLET PO (22:18)
[2021-12-20] MEDS: Finasteride 5 MG Tablet PO (22:19)
[2021-12-20] MEDS: Doxycycline 100 MG CAPSULE PO (22:19)
[2021-12-20] MEDS: Atorvastatin Calcium 40 MG Tablet PO (22:19)
[2021-12-20] MEDS: Tamsulosin HCl 0.4 MG Capsule PO (22:19)
[2021-12-20] MEDS: Gabapentin 100 MG Capsule 200 MG PO (22:19)
[2021-12-20] MEDS: Aspirin E.C. 81 MG Tablet PO (22:19)
[2021-12-20] MEDS: Venlafaxine XR 75 MG Capsule 150 MG PO (22:19)
[2021-12-20] MEDS: Ketorolac 15 MG/ML Vial IV (23:30)
[2021-12-20] MEDS: 0.9% Saline Lock 10 ML Syringe IV (23:30)
[2021-12-21] MEDS: oxyCODONE 5 MG Tablet PO ×2 (02:39→10:40)
[2021-12-21 02:45] VITALS: BP 128/63; PULSE 73; RESP 16; TEMP 36.6; O2SAT 95
[2021-12-21 05:39] LABS: Hematocrit 30.3 % (40-54); Hemoglobin 9.8 g/dL (13.0-16.5); Mean Corp Hgb Conc 32.3 g/dL (32-36); Mean Corpuscular Hgb 29.8 pg (27.0-32.0); Mean Corpuscular Volume 92.1 fL (80-94); Mean Platelet Vol. 9.3 fl (6.2-12.0); Platelet Count 176 K/mm3 (150-450); RBC Distribution Width CV 12.3 % (11.6-14.6); RBC Distribution Width SD 41.9 fl (35.1-43.9); Red Blood Count 3.29 M/mm3 (4.6-6.2); White Blood Count 10.5 K/mm3 (4.4-11.0)
[2021-12-21 05:54] LABS: Anion Gap 6 (5-15); BUN 18 mg/dL (7-18); BUN/Creat Ratio 19.5 RATIO (10-20); Calcium,Total 7.7 mg/dL (8.5-10.1); Chloride 106 mmol/L (98-107); Creatinine, Serum 0.92 mg/dL (0.70-1.30); EST Glomerular Filtration Rate 84 mL/min (>60); Est Glom Filt Rate - Afr Amer 102 mL/min (>60); Estimated Creatinine Clearance 69.43 ml/min; Glucose 133 mg/dL (74-106); Potassium 4.5 mmol/L (3.5-5.1); Sodium Level 137 mmol/L (136-145)
[2021-12-21] MEDS: Rivaroxaban 10 MG Tablet PO (06:31)
[2021-12-21] MEDS: Acetaminophen 500 MG Tablet 1000 MG PO (06:31)
[2021-12-21 07:26] VITALS: O2SAT 95
--- NOTE | 2021-12-21 08:26 | CASEMGMT ---
ROCIO GU Assessment: Face to Face with pt for initial transition planning/care coordination assessment. ROCIO GU introduced self and role at [facility], pt voices understanding and consents to assessment. Pt is A/O x4 and answers all questions appropriately at this time. Pt sitting up in bed with oxygen on in no distress. Care providers, pharmacy, and demographics verified/updated. Admitting Dx: Rev R Total Hip Post PCP:Kerry Specialists:Nikki, ortho; cardiology from [facility], pt unsure of name; Velankin, rheum; Brea, uro Preferred Pharmacy: [facility] Insurance: MCR/Comm Prescription Benefit: yes LW/HPOA: Pt states he has a LW/DPOA and his is his DPOA. The DPOA is on file at [facility]. LNOK: Martha Rothman, Living Arrangements: Pt lives with in a 1.5 story house with 5 steps to enter with a rail. Pt reports he was I in ADL's prior to surgery. Transportation: Pt drives self and denies concerns with transportation. Pt can transport pt until pt able to drive again. DME/HHC/SNF: Pt has a FWW, cane, crutches and CPAP at home. Pt states he typically does not use AD to ambulate. Pt denies hx of HHC or SNF stays. Pt states no concerns with going home at time of dc. He states he does not have any therapy set up post hospitalization. Therapy has not worked with pt yet, will follow. Pt is aware that he will be started on xarelto, depending on dose may be able to provide pt with savings card. He is agreeable to this. Pt states no further concerns/needs. CM to follow. Advised pt to ask CM if any further question/concerns/needs arise, voices understanding. Pt Goal: Home Plan: Home, will follow therapy and xarelto orders for savings card.
[2021-12-21] MEDS: Multivitamins,Therapeutic Tablet 1 TABLET PO (08:35)
[2021-12-21] MEDS: Ensure Surgery 237 ML LIQUID PO ×2 (08:35→12:12)
[2021-12-21 08:38] VITALS: BP 123/56; PULSE 77; RESP 18; TEMP 36.6; O2SAT 95
--- NOTE | 2021-12-21 08:56 | PN.HOSP_ITS ---
Subjective Subjective Patient seen and examined. He had no complaints today and had an uneventful night. REview of systems is otherwise negative. Pain is well controlled. REview of systems is otherwise negative. Objective Data Objective Data Vital Signs: Vital Signs Temp Pulse Resp BP Pulse Ox 97.9 F 77 18 123/56 H 95 12/21/21 08:38 12/21/21 08:38 12/21/21 08:38 12/21/21 08:38 12/21/21 08:38 Oxygen Flow Rate (L/min) 3 Oxygen Delivery Method Room Air Weight: 259 lb Body Mass Index (BMI) 37.1 Intake & Output: Intake and Output for Last 24 Hours 12/19/21 12/20/21 12/21/21 23:59 23:59 23:59 Intake Total 5017 / 5017 585 / 585 Output Total 600 / 600 Balance 5017 / 4417 -15 / -15 Lab / Micro Data Result Diagrams: 12/21/21 05:22 12/21/21 05:22 Labs: Laboratory Results - last 24 hr 12/20/21 11:50: Magnesium 2.3 12/20/21 11:56: POC Glucose 115 H 12/20/21 13:35: Blood Type O NEGATIVE, Antibody Screen NEGATIVE 12/20/21 18:14: POC Glucose 185 H 12/21/21 05:22: WBC 10.5, RBC 3.29 L, Hgb 9.8 L, Hct 30.3 L, MCV 92.1, MCH 29.8, MCHC 32.3, RDW Std Deviation 41.9, RDW Coeff of Renato 12.3, Plt Count 176, MPV 9.3 12/21/21 05:22: Sodium 137, Potassium 4.5, Chloride 106, Carbon Dioxide 25.0, Anion Gap 6, BUN 18, Creatinine 0.92, Estim Creat Clear Calc 69.43, Est GFR (MDRD) Af Amer 102, Est GFR (MDRD) Non-Af 84, BUN/Creatinine Ratio 19.5, Glucose 133 H, Calcium 7.7 L Radiography Diagnostic Testing: Radiology Impression Hip X-Ray 12/20/21 18:16 IMPRESSION: Successful total hip arthroplasty. . Electronically Signed: Octaviano Salamanca MD at 18:34 EDT , Physical Exam Const alert, oriented x3 and no apparent distress Exam Limitations: no limitations HEENT head/scalp atraumatic and moist oral mucous membranes Head and Scalp: normocephalic Eyes PERRL, EOMs intact bilaterally and conjunctivae normal Neck no lymphadenopathy, supple and no JVD Resp normal respiratory effort, no retractions, no use of accessory muscles and clear to auscultation bilaterally Cardio regular rate, regular rhythm, S1 normal heart sound, S2 normal heart sound and no murmurs GI normal to inspection, nondistended, normoactive bowel sounds, soft to palpation and non-tender Extremity normal to inspection and no clubbing, cyanosis or edema Extremity Narrative: intact dressing over right hip Skin no rashes or lesions noted Neuro oriented x3, CN's II-XII intact bilaterally and moves all extremities Sensorium / Orientation: awake Psych affect normal Assessment & Plan Assessment/Plan (1) Hypertension: PLAN: #Complete synovectomy of right hip and complete right hip revision due to failed prosthesis * today is POD 1 * pain well controlled * management as per orthopedics * PT/OT on board * fall precautions * incentive spirometry * #Hypertension: on losartan #History of CAD * on aspirin, statin #BPH; on flomax and finaseride. #Obstructive sleep apnea * stable. Was on 3L of oxygen at time of review, which he says he wore overnight o.a of his sleep apnea * DVT prophylaxis: as per primary team. Currently on xarelto Charges/Coding Visit Charges Inpatient E&M: 89171 Subs Hosp L2
[2021-12-21] MEDS: Cholecalciferol (VIT D3) 25 MCG TABLET (1,000 UNITS) PO (10:29)
[2021-12-21] MEDS: Senna/Docusate Sodium 1 Tablet 2 TABLET PO (10:30)
[2021-12-21] MEDS: Famotidine 20 MG Tablet PO (10:30)
[2021-12-21] MEDS: Pantoprazole Sodium 40 MG Tablet PO (10:30)
[2021-12-21] MEDS: Omega-3 Acid Ethyl Esters 1 GM Capsule PO (10:31)
[2021-12-21] MEDS: Doxycycline 100 MG CAPSULE PO (10:31)
[2021-12-21] MEDS: Losartan Potassium 50 MG Tablet PO (10:32)
--- NOTE | 2021-12-21 11:11 | PN.ORTHO_ITS ---
Subjective Subjective The patient was sitting in bed upon examination with his present. Patient denies any chest pain, shortness of breath, dizziness, lightheadedness, nausea or vomiting, or calf pain. Pain is controlled on medications. No adverse overnight events. Patient is already been up with physical therapy. States he did very well. I did discuss patient with physical therapy and they states he did very well from their standpoint. They have no reason that he could not go home today. Patient states his pain feels significantly better than prior to surgery. He has some generalized soreness in the right hip. He does have sleep apnea but did not have his CPAP machine here. They did utilize oxygen overnight. He denies any chest pain or shortness of breath. No feelings of syncope when up walking. Objective Data Objective Data Vital Signs: Vital Signs Temp Pulse Resp BP Pulse Ox 97.9 F 77 18 123/56 H 95 12/21/21 08:38 12/21/21 08:38 12/21/21 08:38 12/21/21 08:38 12/21/21 08:38 Oxygen Flow Rate (L/min) 3 Oxygen Delivery Method Room Air Weight: 117.48 kg Body Mass Index (BMI) 37.1 Intake & Output: Intake and Output for Last 24 Hours 12/19/21 12/20/21 12/21/21 23:59 23:59 23:59 Intake Total 5017 / 5017 585 / 585 Output Total 600 / 600 Balance 5017 / 4417 -15 / -15 Lab / Micro Data Result Diagrams: 12/21/21 05:22 12/21/21 05:22 Labs: Laboratory Results - last 24 hr 12/20/21 11:50: Magnesium 2.3 12/20/21 11:56: POC Glucose 115 H 12/20/21 13:35: Blood Type O NEGATIVE, Antibody Screen NEGATIVE 12/20/21 18:14: POC Glucose 185 H 12/21/21 05:22: WBC 10.5, RBC 3.29 L, Hgb 9.8 L, Hct 30.3 L, MCV 92.1, MCH 29.8, MCHC 32.3, RDW Std Deviation 41.9, RDW Coeff of Renato 12.3, Plt Count 176, MPV 9.3 12/21/21 05:22: Sodium 137, Potassium 4.5, Chloride 106, Carbon Dioxide 25.0, Anion Gap 6, BUN 18, Creatinine 0.92, Estim Creat Clear Calc 69.43, Est GFR (MDRD) Af Amer 102, Est GFR (MDRD) Non-Af 84, BUN/Creatinine Ratio 19.5, Glucose 133 H, Calcium 7.7 L Micro: Microbiology 12/20/21 Unknown Tissue - Hip Aceabular Membrane Wound Culture - Preliminary No growth-Final to follow 12/20/21 Unknown Tissue - Hip Wound Culture - Preliminary No growth-Final to follow 12/20/21 Unknown Tissue - Hip Wound Culture - Preliminary No growth-Final to follow Radiography Diagnostic Testing: Radiology Impression Hip X-Ray 12/20/21 18:16 IMPRESSION: Successful total hip arthroplasty. . Electronically Signed: Octaviano Salamanca MD at 18:34 EDT Reading Location ID and State: [facility] / [place] , Service support , Physical Exam Narrative Vital signs stable and afebrile. Blood pressures have remained stable and no tachycardia. 95% O2 saturation on room air Right thigh is soft and supple LURDES hose and SCDs are in place bilaterally Currently utilizing ice machine Patient is able to plantarflex and dorsiflex actively. Sensation is intact to light touch to saphenous, sural, superficial and deep peroneal, and tibial distribution. Dressing is clean dry and intact. Negative Homans bilaterally, negative signs and symptoms of DVT. Const alert, oriented x3 and no apparent distress Assessment & Plan Assessment/Plan (1) History of revision of total replacement of right hip joint: PLAN: 1. 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 Continue Pain Medications: Tylenol and oxycodone. Patient states he takes tramadol at home at nighttime. He has not taken this for over 1 week. I instructed him that he has never to mix to narcotics. He will only utilize medication that we prescribed. He voiced understanding and agreement. 3. DVT Prophylaxis: Xarelto 10 mg once daily for 2 weeks postoperatively. This will then be followed by aspirin 81 mg twice daily for an additional 2 weeks. 4. PT/OT: Weightbearing as tolerated with walker. Continue with posterior hip dislocation precautions. Discussed case with therapy and states he did very well and appropriate for discharge home. 5. H & H: 9.8/30.3, asymptomatic. Postoperative anemia secondary to acute blood loss from surgery without any intra operative complications. Patient denies any dizziness, lightheadedness, or feelings of syncope. Patient's vital signs are stable and no tachycardia. Patient will be started on ferrous sulfate and folic acid for 2 weeks postoperatively. Recommend he follow-up with primary care physician in 1 to 2 weeks with repeat lab work. 6. Continue postoperative medical management per medicine: Case was discussed with hospitalist and they are okay with patient being discharged home today and is medically stable. 7. Continue antibiotics while following cultures: All 3 cultures currently with no growth. Patient is currently on doxycycline for 2 weeks postoperatively. Discussed with patient and his potential for sun sensitivity and to take appropriate precautions. Also recommended probiotic while taking the antibiotic for 2 weeks. They voiced understanding and agreement. 8. Encouraged Incentive Spirometry 9. Disposition: Plan will be for possible discharge home this afternoon as long as he continues to tolerate therapy and pain is well controlled. Medicine states they are okay from discharge from their standpoint. Physical therapy f rom the morning session states patient did very well. I would like him to get another round of therapy this afternoon and if doing well plan will be for discharge home. Patient states he feels comfortable to go home today and would like to if possible. Patient will have prescriptions E scribed to [facility] pharmacy. Patient will follow-up per postop instructions. He was instructed to contact her office with any concerns or questions after discharge. Our office will contact the patient on Friday, December 24, 2021 to schedule appropriate therapy. He will continue with therapy exercises from the hospital until his first outpatient formal therapy. I also instructed the margarette ent and his to make sure they are contacting their primary care physician on Friday, December 24, 2021 to schedule a 1 week follow-up for repeat lab work involving CBC and BMP. Patient was placed on ferrous sulfate and folic acid for postoperative anemia. Anticipate only 2 weeks of this. Follow with primary care physician for any further treatment. Case was discussed with Andrez Jordan. I have reviewed the [place] Automated Rx Reporting System (OARRS) report for this patient for refill pattern and other prescriber involvement as part of the appropriate surveillance for the provision of acute and chronic controlled medications. The report was requested and reviewed on the date of this entry and was considered in the prescribing process. This dictation was created using voice recognition software. Phonetic and/or grammatical errors may exist.
--- NOTE | 2021-12-21 11:23 | PCM.DC ---
Discharge Instructions Diet Discharge Diet: No restrictions Activity Discharge Activity: May Not Drive (No driving for 6 weeks postoperatively and while taking narcotic pain medications.) and - May shower in (days): 1 (only if incision is dry and without drainage. Do NOT soak/submerge in tub/pool/camacho/stream/hot tub.)) Ice area for (Minutes): 20 (Every 1-2 hours [address] barrier between ice and skin.) Weight Bearing Status: Weight bearing as tolerated (With walker) Keep extremity elevated above heart level: Operative Extremity Dressing / Incision Call your doctor if your incision/area has: Continuous Slow Oozing, Sudden Increased Bleeding, Increased Pain/ Swelling, Increased Redness and Foul Smelling Discharge Call your doctor if you observe: Fever of 101 or Higher, Shortness of breath, Chest pain, Calf discomfort and Uncontrolled pain Remove Dressing in: 4 days (Okay to remove dressing on December 25, 2021) Additional Dressing/Incision Instructions:: Follow [facility] Post-op Instructions. Once postoperative dressing has been removed, only use gentle soap and water over the incision. Do not use any ointments, Neosporin, salves, alcohol pads over the incision for 6 weeks postoperatively. Do not submerge underwater for 6 weeks postoperatively. Continue with LURDES hose/elastic stockings for 2 weeks postoperatively. May remove at nighttime but needs to be placed back on the leg during the day. Take appropriate precautions with the doxycycline and hypersensitive to the sun. Also recommend probiotic while on this medication for 2 weeks postoperatively. Do NOT use alcohol with narcotic pain medication. Do NOT make important decisions while taking narcotic medication. If you have problems with taking your medication (rash, itching, nausea, etc.) call the office at once. Follow Up Care Test Results: Test results from this visit will be discussed in further detail at your follow-up appointment, if applicable. Discharge Plan Admission Admit Date/Time: 12/20/21 11:04 Attending Provider: nAdrez Jordan Primary Care Provider: Abe Payne Consulting Providers: Yemi Bolanos ; Joseline Jones Discharge Orders/Prescriptions Prescriptions: New acetaminophen 500 mg Tablet 1,000 mg PO Q8 Qty: 100 RF: 0 doxycycline monohydrate 100 mg Capsule 100 mg PO BID 13 Days Qty: 26 RF: 0 ferrous sulfate [FeroSul] 325 mg (65 mg iron) Tablet 325 mg PO 1200,1700 14 Days Qty: 28 RF: 0 folic acid 1 mg Tablet 1 mg PO BIDCM 14 Days Qty: 28 RF: 0 oxycodone 5 mg Tablet 5 - 10 mg PO Q4H PRN PRN (Reason: Pain Score 4-10) 5 Days Qty: 42 RF: 0 Xarelto 10 mg Tablet 10 mg PO DAILY@0600 Qty: 13 RF: 0 sennosides-docusate sodium [Stool Softener-Stimulant Laxat] 8.6-50 mg Tablet 2 tab PO BID Qty: 20 RF: 0 Continued atorvastatin 40 MG tablet 40 mg PO QHS RF: 0 aspirin 81 MG tablet 81 mg PO QHS RF: 0 sildenafil [Viagra] 100 MG tablet 100 mg PO DAILY PRN PRN (Reason: Not Specified) RF: 0 tamsulosin 0.4 MG capsule 0.4 mg PO QHS RF: 0 finasteride 5 MG tablet 5 mg PO QHS RF: 0 Venlafaxine Xr [Effexor Xr] 75 MG capsule 150 mg PO QHS RF: 0 Cardura XL 4 MG tablet extended release 24hr 4 mg PO DAILY RF: 0 Omeprazole [Prilosec] 40 MG capsule 40 mg PO DAILY RF: 0 multivitamin Tablet 1 tab PO DAILY RF: 0 losartan 50 mg tablet 50 mg PO DAILY RF: 0 zinc 50 mg Tablet 50 mg PO DAILY RF: 0 gabapentin 100 mg capsule 200 mg PO QHS RF: 0 cholecalciferol (vitamin D3) [Vitamin D3] 25 mcg (1,000 unit) Capsule 25 mcg PO DAILY RF: 0 Discontinued tramadol 50 mg tablet 50 mg PO PRN PRN (Reason: Pain) RF: 0 hugo (Zingiber officinalis) 500 mg Capsule 500 mg PO DAILY RF: 0 Fish Oil Capsule 1,000 mg PO DAILY RF: 0 turmeric 400 mg Capsule 400 mg PO DAILY RF: 0 Referrals / Follow Up: Physical,Therapy [Other] ([facility] will call on Friday December 24, 2021 to schedule physical therapy. Continue exercises every day from while in hospital) Abe Payne MD [Primary Care Provider] - (follow up in 1-2 weeks for repeat CBC and BMP) Turner Rhodes PA-C [PHYSICIAN BUSINESS SERVICES SPECIALIST SALES] - 06/10/22 2:45 pm Disposition Disposition (needs filled in before D/C Order can be placed): Home, Self Care
[2021-12-21 12:06] VITALS: BP 124/57; PULSE 66; RESP 20; TEMP 36.7; O2SAT 97
[2021-12-21] MEDS: Doxazosin 4 MG Tablet PO (12:09)
[2021-12-21] MEDS: Ferrous Sulfate 325 MG Tablet PO (12:12)
--- NOTE | 2021-12-21 12:47 | CASEMGMT ---
RN CM in to pt room. Pt to have [facility] call him on Thursday to set up therapy. TC to [facility] pharmacy, [place] cost is $20.36. Pharmacy will bring up meds once completed. Pt and agreeable. Pt denies further homegoing needs.
== END 2021-12-21 13:34 | disposition home or self-care (01) | DRG 467 ==
LOC: ACINP 11:07 → MS3 12-21 07:18
PROVIDERS: Anesthesiology; Admitting Provider Specialist; PCP Family Medicine; Referring Provider Specialist; Visit Provider Specialist
PROC: 0SP90JZ Removal of Synthetic Substitute from Right Hip Joint, Open Approach (ICD-10-PCS; CPT 27134; principal; 2021-12-20 13:20)
DX: T84.090A Other mechanical complication of internal right hip prosthesis, initial encounter (principal); D62 Acute posthemorrhagic anemia; T84.84XA Pain due to internal orthopedic prosthetic devices, implants and grafts, initial encounter; M97.01XA Periprosthetic fracture around internal prosthetic right hip joint, initial encounter; G47.33 Obstructive sleep apnea (adult) (pediatric); K21.9 Gastro-esophageal reflux disease without esophagitis; I25.10 Atherosclerotic heart disease of native coronary artery without angina pectoris; F41.9 Anxiety disorder, unspecified; N40.0 Benign prostatic hyperplasia without lower urinary tract symptoms; E78.00 Pure hypercholesterolemia, unspecified; G25.81 Restless legs syndrome; I10 Essential (primary) hypertension; R26.2 Difficulty in walking, not elsewhere classified; X58.XXXA Exposure to other specified factors, initial encounter; Z96.643 Presence of artificial hip joint, bilateral; Z79.899 Other long term (current) drug therapy
CPT/HCPCS: 36415; 73502; 80048; 82962; 83735; 85027; 86850; 86900; 86901; 87015; 87070; 87075; 87081; 87102; 87116; 87205; 87206; 88304; 88305; 97162; 97166; 99251; C1776; J7040; J7120; A4216; G0463; J2405; J3475

== ENCOUNTER 2022-03-19 11:28 | Outpatient (CLI) | payer MEDICARE, OTHER, SELFPAY ==
[2022-03-19 15:08] LABS: Absolute Lymphocyte Count 1.54 X10^3/uL (0.83-4.51); Absolute Neutrophil Count 2.6 X10^3/uL (2.0-7.7); Basophil# 0.04 X10^3/uL; Basophil% 0.8 % (0-1); Eosinophil# 0.24 X10^3/uL; Hematocrit 35.1 % (40-54); Hemoglobin 10.7 g/dL (13.0-16.5); Lymphocyte # 1.54 X10^3/ul (0.83-4.51); Lymphocyte % 32.2 % (19-41); Mean Corp Hgb Conc 30.5 g/dL (32-36); Mean Corpuscular Hgb 24.8 pg (27.0-32.0); Mean Corpuscular Volume 81.3 fL (80-94); Monocyte% 8.4 % (0-10); NRBC Flagged by Analyzer 0 % (0-5); Neutrophil # 2.55 X10^3/uL (2.7-7.7); Neutrophil % 53.4 % (47-70); Platelet Count 226 K/mm3 (150-450); RBC Distribution Width CV 14.2 % (11.6-14.6); RBC Distribution Width SD 41.5 fl (35.1-43.9); Red Blood Count 4.32 M/mm3 (4.6-6.2); White Blood Count 4.8 K/mm3 (4.4-11.0)
[2022-03-19 15:37] LABS: AST(SGOT) 19 U/L (15-37); Alanine Aminotransfer ALT/SGPT 29 U/L (16-61); Albumin, Serum 3.6 g/dL (3.2-5.0); Alkaline Phosphatase 93 U/L (45-117); Anion Gap 6 (5-15); BUN 19 mg/dL (7-18); BUN/Creat Ratio 18.8 RATIO (10-20); Calcium,Total 8.6 mg/dL (8.5-10.1); Chloride 105 mmol/L (98-107); Creatinine, Serum 1.01 mg/dL (0.70-1.30); EST Glomerular Filtration Rate 76 mL/min (>60); Est Glom Filt Rate - Afr Amer 92 mL/min (>60); Globulin 3.5 g/dL (2.2-4.2); Glucose 130 mg/dL (74-106); Protein, Total 7.1 g/dL (6.4-8.2); Sodium Level 137 mmol/L (136-145)
== END 2022-03-19 23:59 | disposition home or self-care (01) ==
PROVIDERS: PCP Family Medicine; Referring Provider Internal Medicine Rheumatology; Visit Provider Internal Medicine Rheumatology
DX: M17.0 Bilateral primary osteoarthritis of knee (principal); M16.0 Bilateral primary osteoarthritis of hip; M19.012 Primary osteoarthritis, left shoulder; M18.12 Unilateral primary osteoarthritis of first carpometacarpal joint, left hand
CPT/HCPCS: 36415; 80053; 85025

== ENCOUNTER → 2022-05-30 | Outpatient (CLI) | payer MEDICARE, OTHER, SELFPAY ==
[2022-05-30 12:42] LABS: Absolute Lymphocyte Count 1.17 X10^3/uL (0.83-4.51); Absolute Neutrophil Count 2.9 X10^3/uL (2.0-7.7); Basophil# 0.04 X10^3/uL; Basophil% 0.9 % (0-1); Eosinophil# 0.18 X10^3/uL; Eosinophils% 3.9 % (0-5); Hematocrit 40.9 % (40-54); Hemoglobin 12.6 g/dL (13.0-16.5); Lymphocyte # 1.17 X10^3/ul (0.83-4.51); Lymphocyte % 25.1 % (19-41); Mean Corp Hgb Conc 30.8 g/dL (32-36); Mean Corpuscular Hgb 25.9 pg (27.0-32.0); Mean Platelet Vol. 10.5 fl (6.2-12.0); Monocyte# 0.33 X10^3/uL; Monocyte% 7.1 % (0-10); NRBC Flagged by Analyzer 0 % (0-5); Neutrophil # 2.94 X10^3/uL (2.7-7.7); Neutrophil % 62.8 % (47-70); Platelet Count 184 K/mm3 (150-450); RBC Distribution Width CV 19.9 % (11.6-14.6); RBC Distribution Width SD 59.8 fl (35.1-43.9); Red Blood Count 4.87 M/mm3 (4.6-6.2); White Blood Count 4.7 K/mm3 (4.4-11.0)
[2022-05-30 13:14] LABS: ALB/GLOB Ratio 1.1 RATIO (0.9-2.4); AST(SGOT) 30 U/L (15-37); Alanine Aminotransfer ALT/SGPT 34 U/L (16-61); Albumin, Serum 3.9 g/dL (3.2-5.0); Alkaline Phosphatase 78 U/L (45-117); Anion Gap 7 (5-15); BUN 16 mg/dL (7-18); Calcium,Total 9.2 mg/dL (8.5-10.1); Chloride 105 mmol/L (98-107); Creatinine, Serum 0.94 mg/dL (0.70-1.30); EST Glomerular Filtration Rate 82 mL/min (>60); Est Glom Filt Rate - Afr Amer 100 mL/min (>60); Ferritin 23 ng/mL (26-388); Globulin 3.6 g/dL (2.2-4.2); Glucose 110 mg/dL (74-106); Iron 85 ug/dL (65-175); Iron Binding Capacity,Total 354 ug/dL (250-450); Potassium 4.2 mmol/L (3.5-5.1); Protein, Total 7.5 g/dL (6.4-8.2); Sodium Level 139 mmol/L (136-145)
== END | disposition home or self-care (01) ==
LOC: MTLAB 10:03
PROVIDERS: PCP Family Medicine; Referring Provider Internal Medicine Rheumatology; Visit Provider Internal Medicine Rheumatology
DX: M17.0 Bilateral primary osteoarthritis of knee (principal); M16.0 Bilateral primary osteoarthritis of hip; M19.012 Primary osteoarthritis, left shoulder; M18.12 Unilateral primary osteoarthritis of first carpometacarpal joint, left hand
CPT/HCPCS: 36415; 80053; 82728; 83540; 83550; 85025

== ENCOUNTER → 2022-10-13 | Outpatient (CLI) | payer MEDICARE, OTHER, SELFPAY ==
[2022-10-13 16:13] LABS: PSA,Total - Annual Screen 2.04 ng/mL (0.00-4.00)
== END | disposition home or self-care (01) ==
LOC: LAB 14:15
PROVIDERS: PCP Family Medicine; Referring Provider Registered Nurse; Visit Provider Registered Nurse
DX: Z12.5 Encounter for screening for malignant neoplasm of prostate (principal)
CPT/HCPCS: 36415; 84153; G0103

== ENCOUNTER 2023-02-09 12:45 | Outpatient (CLI) | payer MEDICARE, OTHER, SELFPAY ==
[2023-02-09 14:57] LABS: Absolute Lymphocyte Count 1.24 X10^3/uL (0.83-4.51); Absolute Neutrophil Count 7.2 X10^3/uL (2.0-7.7); Basophil# 0.03 X10^3/uL; Basophil% 0.3 % (0-1); Eosinophil# 0.05 X10^3/uL; Eosinophils% 0.6 % (0-5); Hematocrit 44.3 % (40-54); Hemoglobin 14.3 g/dL (13.0-16.5); Lymphocyte # 1.24 X10^3/ul (0.83-4.51); Lymphocyte % 14.1 % (19-41); Mean Corp Hgb Conc 32.3 g/dL (32-36); Mean Corpuscular Hgb 30.6 pg (27.0-32.0); Mean Corpuscular Volume 94.7 fL (80-94); Mean Platelet Vol. 10.1 fl (6.2-12.0); Monocyte# 0.26 X10^3/uL; NRBC Flagged by Analyzer 0 % (0-5); Neutrophil # 7.15 X10^3/uL (2.7-7.7); Neutrophil % 81.5 % (47-70); Platelet Count 173 K/mm3 (150-450); RBC Distribution Width SD 44.6 fl (35.1-43.9); Red Blood Count 4.68 M/mm3 (4.6-6.2); White Blood Count 8.8 K/mm3 (4.4-11.0)
[2023-02-09 15:17] LABS: ALB/GLOB Ratio 1.1 RATIO (0.9-2.4); AST(SGOT) 24 U/L (15-37); Alanine Aminotransfer ALT/SGPT 31 U/L (16-61); Albumin, Serum 3.9 g/dL (3.2-5.0); Alkaline Phosphatase 74 U/L (45-117); Anion Gap 4 (5-15); BUN 24 mg/dL (7-18); BUN/Creat Ratio 19.7 RATIO (10-20); Calcium,Total 9.3 mg/dL (8.5-10.1); Chloride 105 mmol/L (98-107); Creatinine, Serum 1.22 mg/dL (0.70-1.30); EST Glomerular Filtration Rate 61 mL/min (>60); Est Glom Filt Rate - Afr Amer 74 mL/min (>60); Globulin 3.6 g/dL (2.2-4.2); Glucose 147 mg/dL (74-106); Protein, Total 7.5 g/dL (6.4-8.2); Sodium Level 138 mmol/L (136-145)
== END 2023-02-09 23:59 | disposition home or self-care (01) ==
LOC: MTLAB 12:46
PROVIDERS: PCP Family Medicine; Referring Provider Internal Medicine Rheumatology; Visit Provider Internal Medicine Rheumatology
DX: M17.0 Bilateral primary osteoarthritis of knee (principal); M16.0 Bilateral primary osteoarthritis of hip; M19.012 Primary osteoarthritis, left shoulder; M18.12 Unilateral primary osteoarthritis of first carpometacarpal joint, left hand; R53.83 Other fatigue
CPT/HCPCS: 36415; 80053; 85025

== ENCOUNTER → 2023-06-01 | Outpatient (CLI) | payer MEDICARE, OTHER, SELFPAY | END | disposition home or self-care (01) | LOC: SL 08:20 | PROVIDERS: PCP Family Medicine; Visit Provider Family Medicine | DX: G47.33 Obstructive sleep apnea (adult) (pediatric) (principal) ==

== ENCOUNTER → 2023-10-20 | Outpatient (CLI) | payer MEDICARE, OTHER, SELFPAY ==
[2023-10-20 12:15] LABS: PSA,Total - Annual Screen 1.48 ng/mL (0.00-4.00)
== END | disposition home or self-care (01) ==
LOC: LAB 11:41
PROVIDERS: PCP Family Medicine; Referring Provider Nurse Practitioner; Visit Provider Nurse Practitioner
DX: Z12.5 Encounter for screening for malignant neoplasm of prostate (principal)
CPT/HCPCS: 36415; 84153; G0103

== ENCOUNTER 2024-02-03 15:27 | Emergency (ER) | payer MEDICARE, OTHER, SELFPAY ==
[2024-02-03 15:27] VITALS: BP 139/71; PULSE 69; RESP 17; TEMP 36.2; O2SAT 99; BMI 31.7
--- NOTE | 2024-02-03 16:16 | ED.RN ---
Pt stated he wanted to go to urgent care for sutures. Pt has left department without being seen
== END 2024-02-03 16:10 | disposition left against medical advice (07) ==
LOC: ED 16:16
PROVIDERS: PCP Family Medicine
DX: R69 Illness, unspecified (principal); Z53.21 Procedure and treatment not carried out due to patient leaving prior to being seen by health care provider

== ENCOUNTER 2024-02-04 13:25 | Outpatient (CLI) | payer MEDICARE, OTHER, SELFPAY ==
[2024-02-04 15:23] LABS: Absolute Neutrophil Count 3.2 X10^3/uL (2.0-7.7); Basophil# 0.05 X10^3/uL; Eosinophil# 0.28 X10^3/uL; Eosinophils% 5.6 % (0-5); Hemoglobin 12.7 g/dL (13.0-16.5); Lymphocyte % 23.9 % (19-41); Mean Corp Hgb Conc 32.6 g/dL (32-36); Mean Corpuscular Hgb 29.7 pg (27.0-32.0); Mean Corpuscular Volume 91.1 fL (80-94); Mean Platelet Vol. 10.1 fl (6.2-12.0); Monocyte# 0.33 X10^3/uL; Monocyte% 6.6 % (0-10); NRBC Flagged by Analyzer 0 % (0-5); Neutrophil # 3.16 X10^3/uL (2.7-7.7); Neutrophil % 62.7 % (47-70); Platelet Count 171 K/mm3 (150-450); RBC Distribution Width CV 12.6 % (11.6-14.6); RBC Distribution Width SD 41.2 fl (35.1-43.9); Red Blood Count 4.28 M/mm3 (4.6-6.2)
[2024-02-04 15:38] LABS: ALB/GLOB Ratio 1.2 RATIO (0.9-2.4); AST(SGOT) 26 U/L (15-37); Alanine Aminotransfer ALT/SGPT 32 U/L (16-61); Albumin, Serum 3.8 g/dL (3.2-5.0); Alkaline Phosphatase 69 U/L (45-117); Anion Gap 5 (5-15); BUN 23 mg/dL (7-18); BUN/Creat Ratio 25.9 RATIO (10-20); Calcium,Total 8.9 mg/dL (8.5-10.1); Chloride 107 mmol/L (98-107); Creatinine, Serum 0.89 mg/dL (0.70-1.30); EST Glomerular Filtration Rate 88 mL/min (>60); Est Glom Filt Rate - Afr Amer 106 mL/min (>60); Globulin 3.3 g/dL (2.2-4.2); Glucose 119 mg/dL (74-106); Potassium 4.3 mmol/L (3.5-5.1); Protein, Total 7.1 g/dL (6.4-8.2); Sodium Level 137 mmol/L (136-145)
== END 2024-02-04 23:59 | disposition home or self-care (01) ==
PROVIDERS: PCP Family Medicine; Referring Provider Internal Medicine Rheumatology; Visit Provider Internal Medicine Rheumatology
DX: M17.0 Bilateral primary osteoarthritis of knee (principal); M16.0 Bilateral primary osteoarthritis of hip; M19.012 Primary osteoarthritis, left shoulder; M18.12 Unilateral primary osteoarthritis of first carpometacarpal joint, left hand; M75.41 Impingement syndrome of right shoulder
CPT/HCPCS: 36415; 80053; 85025

== ENCOUNTER 2024-08-01 13:43 | Outpatient (CLI) | payer MEDICARE, OTHER, SELFPAY ==
[2024-08-01 18:35] LABS: Absolute Lymphocyte Count 1.31 X10^3/uL (0.83-4.51); Basophil# 0.06 X10^3/uL; Eosinophil# 0.23 X10^3/uL; Eosinophils% 3.8 % (0-5); Hematocrit 40.4 % (40-54); Hemoglobin 13.2 g/dL (13.0-16.5); Lymphocyte # 1.31 X10^3/ul (0.83-4.51); Lymphocyte % 21.7 % (19-41); Mean Corp Hgb Conc 32.7 g/dL (32-36); Mean Corpuscular Hgb 29.9 pg (27.0-32.0); Mean Corpuscular Volume 91.4 fL (80-94); Mean Platelet Vol. 10.3 fl (6.2-12.0); Monocyte# 0.43 X10^3/uL; Monocyte% 7.1 % (0-10); NRBC Flagged by Analyzer 0 % (0-5); Neutrophil % 66.1 % (47-70); Platelet Count 179 K/mm3 (150-450); RBC Distribution Width CV 12.4 % (11.6-14.6); RBC Distribution Width SD 40.9 fl (35.1-43.9); Red Blood Count 4.42 M/mm3 (4.6-6.2); White Blood Count 6.1 K/mm3 (4.4-11.0)
[2024-08-01 18:38] LABS: Erythrocyte Sedimentation Rate 2 mm/hr (0-20)
[2024-08-01 18:44] LABS: ALB/GLOB Ratio 1.2 RATIO (0.9-2.4); AST(SGOT) 20 U/L (15-37); Alanine Aminotransfer ALT/SGPT 32 U/L (16-61); Alkaline Phosphatase 71 U/L (45-117); Anion Gap 3 (5-15); BUN 17 mg/dL (7-18); BUN/Creat Ratio 19.7 RATIO (10-20); CRP < 2.90 mg/L (0.0-3.0); Calcium,Total 9.2 mg/dL (8.5-10.1); Chloride 105 mmol/L (98-107); Creatinine, Serum 0.86 mg/dL (0.70-1.30); EST Glomerular Filtration Rate 91 mL/min (>60); Est Glom Filt Rate - Afr Amer 110 mL/min (>60); Globulin 3.3 g/dL (2.2-4.2); Glucose 121 mg/dL (74-106); Potassium 4.1 mmol/L (3.5-5.1); Protein, Total 7.3 g/dL (6.4-8.2); Sodium Level 138 mmol/L (136-145)
== END 2024-08-01 23:59 | disposition home or self-care (01) ==
PROVIDERS: PCP Family Medicine; Referring Provider Internal Medicine Rheumatology; Visit Provider Internal Medicine Rheumatology
DX: M17.0 Bilateral primary osteoarthritis of knee (principal); M16.0 Bilateral primary osteoarthritis of hip; M19.012 Primary osteoarthritis, left shoulder; M18.12 Unilateral primary osteoarthritis of first carpometacarpal joint, left hand
CPT/HCPCS: 36415; 80053; 85025; 85652; 86140

== ENCOUNTER 2024-10-26 11:31 | Observation (INO) | payer MEDICARE, OTHER, SELFPAY ==
[2024-10-26] VITALS (13 sets, daily range): BP systolic 102–178; BP diastolic 56–80; PULSE 52–89; RESP 12–18; TEMP 36.2–36.9; O2SAT 95–100; BMI 33.0; BMI 32.3
[2024-10-26 12:00] LABS: Absolute Lymphocyte Count 1.07 X10^3/uL (0.83-4.51); Absolute Neutrophil Count 3.2 X10^3/uL (2.0-7.7); Basophil# 0.05 X10^3/uL; Eosinophil# 0.22 X10^3/uL; Eosinophils% 4.4 % (0-5); Hematocrit 39.2 % (40-54); Hemoglobin 13.2 g/dL (13.0-16.5); Lymphocyte # 1.07 X10^3/ul (0.83-4.51); Lymphocyte % 21.6 % (19-41); Mean Corp Hgb Conc 33.7 g/dL (32-36); Mean Corpuscular Hgb 30.6 pg (27.0-32.0); Mean Corpuscular Volume 90.7 fL (80-94); Mean Platelet Vol. 9.7 fl (6.2-12.0); Monocyte# 0.41 X10^3/uL; Monocyte% 8.3 % (0-10); NRBC Flagged by Analyzer 0 % (0-5); Neutrophil # 3.19 X10^3/uL (2.7-7.7); Neutrophil % 64.3 % (47-70); Platelet Count 146 K/mm3 (150-450); RBC Distribution Width CV 12.8 % (11.6-14.6); RBC Distribution Width SD 41.7 fl (35.1-43.9); Red Blood Count 4.32 M/mm3 (4.6-6.2)
[2024-10-26 12:48] LABS: ALB/GLOB Ratio 1.5 RATIO (0.9-2.4); AST(SGOT) 28 U/L (<=37); Alanine Aminotransfer ALT/SGPT 25 U/L (<=46); Albumin, Serum 4.4 g/dL (3.4-4.8); Alkaline Phosphatase 77 U/L (40-129); Anion Gap 9 (5-15); BUN 16 mg/dL (4-19); BUN/Creat Ratio 17.1 RATIO (10-20); Calcium,Total 9.4 mg/dL (7.6-11.0); Carbon Dioxide 25.2 mmol/L (21.0-32.0); Chloride 104 mmol/L (98-108); Creatinine, Serum 0.94 mg/dL (0.70-1.20); EST Glomerular Filtration Rate 82 (>60); Estimated Creatinine Clearance 75.87 ml/min (50-250); Globulin 2.8 g/dL (2.2-4.2); Glucose 121 mg/dL (70-99); Lipase 25 U/L (13-75); Potassium 4.4 mmol/L (3.3-5.1); Protein, Total 7.2 g/dL (5.9-8.4); Sodium Level 138 mmol/L (133-145); Total Bilirubin 0.43 mg/dL (0.00-1.30)
--- NOTE | 2024-10-26 14:34 | EDS_ITS ---
HPI <Dr. Bill Gary MD - Last Filed: 10/27/24 08:44> History of Present Illness Chief Complaint: Abd Pain Detail of Chief Complaint: Patient presents because of abdominal pain, and no bowel movement for the p Informant: patient and spouse/S.O. Onset/Context/Timing Onset: Days Context: Sudden Onset Timing: Continuous Quality: Pain which she states initially was lower quadrant now umbilicus Location: Presently umbilicus Current Severity: Mild Maximum Severity: Moderate Worsened by: Pushing on the hernia Relieved by: Relieved by me reducing the hernia Associated Symptoms Associated Symptoms: No nausea or vomiting. Positive flatus Narrative Narrative: Patient is an 79-year-old male. He has history of hypertension, depression, BPH, GERD, iron deficiency anemia who presents with initially lower abdominal pain. Is not had abdominal several days. He now is complaining umbilical pain. He states the pain is worse if he pushes on it. He denies nausea or vomiting. He does have flatus. He has not noticed any black or maroon stool prior to the constipation. He has not seen a surgeon for the hernia. He did not realize he had a hernia until today. His attempted him to come in earlier this week. He declined. Prior similar symptoms: No PFSH <Dr. Bill Gary MD - Last Filed: 10/27/24 08:44> PFSH Medical History Contact dermatitis due to poison francois Hypertension History of MRSA infection Wears glasses Anxiety Uses wheelchair Arthritis Kidney stones High cholesterol Gastric reflux Non-smoker CPAP (continuous positive airway pressure) dependence Sleep apnea History of pain when walking History of stress test History of echocardiogram Cardiology follow-up encounter BPH (benign prostatic hyperplasia) Dyslipidemia Nephrolithiasis Coronary artery disease Home Medications ?Medication ?Instructions ?Recorded ?Last Taken ?Type Venlafaxine Xr [Effexor Xr] 150 mg PO QHS DEPRESSION 0 04/04/15 04/14/15 History aspirin 81 mg tablet,delayed 81 mg PO QHS BLOOD THINNE R 04/04/15 04/14/15 History release Held on 10/26/24. Instructions: Resume on 10/28/24. atorvastatin 40 mg tablet 40 mg PO QHS CHOLESTEROL 04/1004/14/15 History finasteride 5 mg tablet 5 mg PO QHS URINATION 04/14/15 History tamsulosin 0.4 mg capsule 0.4 mg PO QHS URINATION 04/1004/14/15 History Omeprazole [Prilosec] 40 mg PO DAILY GERD 01/23/17 12/20/21 History doxazosin 4 mg tablet,extended 4 mg PO DAILY HEART 12/20/21 History release 24 hr (Cardura XL) cholecalciferol (vitamin D3) 25 25 mcg PO DAILY SUPPLE MENT 12/17/21 Unknown History mcg (1,000 unit) capsule (Vitamin D3) gabapentin 100 mg capsule 200 mg PO QHS PAIN 12/17/21 Unknown History losartan 50 mg tablet 50 mg PO DAILY BP 12/17/21 0 12/20/21 History multivitamin 1 tab PO DAILY SUPPLEMENT Unknown History tramadol 50 mg tablet 50 mg PO Q6H PRN pain #7 tab s 10/26/24 Unknown Rx Allergy/AdvReac Type Severity Reaction Status Date / Time No Known Allergies Allergy Verified 10/26/24 11:34 Surgical History Hx of bilateral cataract extraction Hx of hernia repair Hx of appendectomy History of carpal tunnel release of both wrists Hx of repair of right rotator cuff Hx of repair of left rotator cuff Hx of bilateral hip replacements Social History household members: spouse Smoking Status: Never smoker ROS <Dr. Bill Gary MD - Last Filed: 10/27/24 08:44> ROS ED Constitutional Constitutional ED: Denies chills, fever(s), subjective or sweats Eyes Eyes: Denies blurry vision or change in vision ENT ENT ED: Denies ear pain or rhinorrhea Cardiovascular Cardiovascular: Denies chest pain, palpitations or racing heartbeat Respiratory/Chest Respiratory/Chest: Denies cough, dyspnea or dyspnea on exertion Gastrointestinal Gastrointestinal: Reports abdominal pain and constipation; Denies diarrhea, melena, nausea or vomiting Genitourinary Genitourinary ED: Denies dysuria, hematuria or urinary frequency Musculoskeletal Musculoskeletal: Denies arthralgias or myalgias Integumentary Denies rash Endocrine Endocrinology: Denies cold intolerance or heat intolerance Hematologic/Lymphatic Hematologic/Lymphatic: Reports systems reviewed and no addt'l complaints, except as documented EXAM <Dr. Bill Gary MD - Last Filed: 10/27/24 08:44> Physical Exam Const Vital Signs: 10/26/24 11:31 10/26/24 14:27 10/26/24 16:00 Temperature 98.2 F Temperature Source Oral Pulse Rate 73 56 L 89 Respiratory Rate 17 16 16 Blood Pressure 102/76 162/73 H 175/78 H Blood Pressure Mean 84 102 110 Pulse Ox 100 99 98 Oxygen Delivery Method Room Air Room Air Room Air Positive well nourished and well developed Constitutional Narrative: BMI is 33.0. He does not appear in any obvious discomfort. General Appearance ED: well developed and pallor HEENT HEENT Narrative: Head is atraumatic normocephalic. Ears normal. Nares patent Eyes PERRL and EOMs intact bilaterally General Eye ED: Negative for pale conjunctiva or scleral icterus Neck no lymphadenopathy, supple and no JVD Chest Wall inspection of chest normal Resp normal respiratory effort and clear to auscultation bilaterally Cardio regular rate, regular rhythm, S1 normal heart sound, S2 normal heart sound and no murmurs GI non-distended; Negative for normal to inspection, nondistended, normoactive bowel sounds, non-tender, hepatosplenomegaly or no masses GI Narrative: Patient has a obvious hernia. There is slight redness to the skin. There is tenderness to palpation. He is slightly tympanitic. Bowel sounds are diminished. There is no guarding or peritoneal findings. Palpation: Negative for guarding or rebound tenderness present Neuro oriented x3 and CN's II-XII intact bilaterally Sensorium / Orientation: alert Skin no rashes or lesions noted, no wounds and No skin turgor normal General Skin Exam: elasticity normal and pallor; Negative for jaundice <Dr. Stevie Resendiz DO - Last Filed: 10/26/24 16:48> Physical Exam Const Vital Signs: 10/26/24 11:31 10/26/24 14:27 10/26/24 16:00 Temperature 98.2 F Temperature Source Oral Pulse Rate 73 56 L 89 Respiratory Rate 17 16 16 Blood Pressure 102/76 162/73 H 175/78 H Blood Pressure Mean 84 102 110 Pulse Ox 100 99 98 Oxygen Delivery Method Room Air Room Air Room Air MDM <Dr. Bill Gary MD - Last Filed: 10/27/24 08:44> [facility] Narrative Medical decision making narrative: The larger of the 2 umbilical hernias was reduced with about 5 to 10 seconds of moderate pressure. His pain resolved. There is also a small hernia that superior to this that I was not able to reduce. He is in significant pain. Will obtain basic blood work. Nurse protocol was initiated. Because of the small hernia that is not reducible CT was obtained especially since he reports no bowel movement for the past several days. A lactate was also ordered. Will contact general surgery once CAT scan has been done since he will need intervention. Of note patient is on anticoagulant, Xarelto. After reviewing patient's medication list with the patient . He is not on an anticoagulant. I was informed that Dr. Hale is on-call and not Dr. Vitale. She is in the OR. She is sending her nurse practitioner up. Will inform her of patient's history, physical and concerns. History & Record Review Additional record(s) reviewed:: Prior outpatient record (Seen for contact dermatitis urgent care by SENG Bailey January 2023.), Prior ED visit (Patient was seen in the ER December 13, 2021 for a periprosthetic fracture right hip. He was also seen May 2019 for abdominal wall hematoma.) and No prior records Lab Data Attestation: I reviewed the patient's lab results. Lab results narrative: CBC is unremarkable. Comprehensive metabolic panel is unremarkable. Glucose is elevated 121 with a normal CO2 anion gap. Labs: Laboratory Results - last 24 hr 10/26/24 10/26/24 10/26/24 11:54 14:19 14:43 WBC 5.0 RBC 4.32 L Hgb 13.2 Hct 39.2 L MCV 90.7 MCH 30.6 MCHC 33.7 RDW Std Deviation 41.7 RDW Coeff of Renato 12.8 Plt Count 146 L MPV 9.7 Immature Gran % (Auto) 0.400 Neut % (Auto) 64.3 Lymph % (Auto) 21.6 [place] % (Auto) 8.3 Eos % (Auto) 4.4 Baso % (Auto) 1.0 Absolute Neuts (auto) 3.2 Absolute Lymphs (auto) 1.07 Nucleated RBC % 0 Sodium 138 Potassium 4.4 Chloride 104 Carbon Dioxide 25.2 Anion Gap 9 BUN 16 Creatinine 0.94 Estim Creat Clear Calc 75.87 Est GFR (MDRD) Non-Af 82 BUN/Creatinine Ratio 17.1 Glucose 121 H Lactic Acid 1.7 Calcium 9.4 Total Bilirubin 0.43 AST 28 ALT 25 Alkaline Phosphatase 77 Total Protein 7.2 Albumin 4.4 Globulin 2.8 Albumin/Globulin Ratio 1.5 Lipase 25 Urine Color Yellow Urine Clarity Clear Urine pH 6.5 Ur Specific [place] 1.010 Urine Protein 30 H Urine Glucose (UA) Normal Urine Ketones Negative Urine Occult Blood 25 H Urine Nitrite Negative Urine Bilirubin Negative Urine Urobilinogen Normal Ur Leukocyte Esterase 25 H Urine RBC 0-5 SEEN Urine WBC 0-5 SEEN Ur Squamous Epith Cells 0-5 SEEN Urine Bacteria 0 SEEN Urine Mucus 0 SEEN Radiography Diagnostic Testing: Clinical Impression(s) from Imaging Studies Abdomen/Pelvis CT 10/26/24 14:50 IMPRESSION: Bilateral nonobstructive intrarenal calculi more prominent on the left side. Umbilical hernia as described with increased density within the hernia as well as the anterior peritoneal fat just deep to the umbilicus suggestive of possible incarceration. Clinical correlation recommended. Reading Location: [facility]-1 CT reveals what appears to be omentum and umbilical hernia. There is no other changes noted. Awaiting formal read. Patient has significant atherosclerotic disease. He has bilateral renal calculi. The stone on the left is significant in size. Management Discussion w/another healthcare provider: Therapist Radiation (General surgery. Documented in the [facility] portion of the EMR.) Additional Tests and Interventions Additional Tests or Interventions: Patient was offered pain medicine which she declined. Treatment and Re-Evaluation :: Patient was informed of laboratory results and CAT scan results. He was informed that the surgical nurse practitioner will be up to see him. Comments:: Case was turned over to the afternoon physician for disposition after surgical eval. <Dr. Stevie Resendiz, DO - Last Filed: 10/26/24 16:48> [facility] Lab Data Labs: Laboratory Results - last 24 hr 10/26/24 10/26/24 10/26/24 11:54 14:19 14:43 WBC 5.0 RBC 4.32 L Hgb 13.2 Hct 39.2 L MCV 90.7 MCH 30.6 MCHC 33.7 RDW Std Deviation 41.7 RDW Coeff of Renato 12.8 Plt Count 146 L MPV 9.7 Immature Gran % (Auto) 0.400 Neut % (Auto) 64.3 Lymph % (Auto) 21.6 [place] % (Auto) 8.3 Eos % (Auto) 4.4 Baso % (Auto) 1.0 Absolute Neuts (auto) 3.2 Absolute Lymphs (auto) 1.07 Nucleated RBC % 0 Sodium 138 Potassium 4.4 Chloride 104 Carbon Dioxide 25.2 Anion Gap 9 BUN 16 Creatinine 0.94 Estim Creat Clear Calc 75.87 Est GFR (MDRD) Non-Af 82 BUN/Creatinine Ratio 17.1 Glucose 121 H Lactic Acid 1.7 Calcium 9.4 Total Bilirubin 0.43 AST 28 ALT 25 Alkaline Phosphatase 77 Total Protein 7.2 Albumin 4.4 Globulin 2.8 Albumin/Globulin Ratio 1.5 Lipase 25 Urine Color Yellow Urine Clarity Clear Urine pH 6.5 Ur Specific [place] 1.010 Urine Protein 30 H Urine Glucose (UA) Normal Urine Ketones Negative Urine Occult Blood 25 H Urine Nitrite Negative Urine Bilirubin Negative Urine Urobilinogen Normal Ur Leukocyte Esterase 25 H Urine RBC 0-5 SEEN Urine WBC 0-5 SEEN Ur Squamous Epith Cells 0-5 SEEN Urine Bacteria 0 SEEN Urine Mucus 0 SEEN Radiography Diagnostic Testing: Clinical Impression(s) from Imaging Studies Abdomen/Pelvis CT 10/26/24 14:50 IMPRESSION: Bilateral nonobstructive intrarenal calculi more prominent on the left side. Umbilical hernia as described with increased density within the hernia as well as the anterior peritoneal fat just deep to the umbilicus suggestive of possible incarceration. Clinical correlation recommended. Reading Location: [facility]1 Treatment and Re-Evaluation Comments:: Case was turned over to the afternoon physician for disposition after surgical eval. Patient was turned over to me by Dr. [email or web address] Brief history: 79-year-old male history as above Physical exam: As above Labs and images reviewed (if obtained): As per prior physicians note MDM/plan: Discussed with general surgery Dr. Limon who recommended admission to the OR for definitive management. She requested an EKG which was obtained. EKG showed sinus bradycardia rate of 53, first-degree AV block with prolonged NH interval of 228, normal QTc interval at 420, normal axis, no obvious ischemic changes noted. Dispo: Admit OR Discharge Plan Dx/Rx/DC Orders Clinical Impression: Incarcerated umbilical hernia, Coronary artery disease, Hypertension, Obstructive sleep apnea, BPH (benign prostatic hyperplasia), Reducible umbilical hernia Disposition Disposition: Acute Care Hospital [facility] Discharge Date/Time: 10/26/24 17:25
[2024-10-26 14:49] LABS: Bacteria 0 SEEN /hpf (None Seen); Mucous, Urine 0 SEEN /hpf (<or=2+)
--- NOTE | 2024-10-26 14:50 | CT_ITS ---
PROCEDURE: ABDOMEN/PELVIS W IV CONT ONLY 10/26/2024 REASON FOR EXAM: 1 REDUCIBLE UMBILICAL HERNIA AND 1 NONREDUCIBLE UM Prior umbilical hernia repair. TECHNIQUE: Abdomen and pelvis CT with intravenous contrast. Coronal and Sagittal reconstruction series were provided. PATIENT PREPARATION: Per protocol ORAL CONTRAST TYPE: None. CONTRAST: Isovue-300 VOLUME: 74mL One or more dose reduction techniques were used (e.g., Automated exposure control, adjustment of the mA and/or kV according to patient size, use of iterative reconstruction technique. RADIATION DOSE SUMMARY: CTDlvol: 14 mGy DLP: 984.6 mGycm COMPARISON: Comparison is made with prior study dated June 22, 2019. FINDINGS: Lung bases: Mild dependent atelectasis. Coronary artery calcification. Liver: Unremarkable tiny cyst in the anterior aspect of the left lobe of the liver. Gallbladder: Unremarkable Spleen: Normal size. Pancreas: Normal size without evidence of mass surrounding inflammation or ductal dilation. Adrenals: Kidneys: 1.1 cm nonobstructive calculus in the upper pole calyx of the left kidney. Nonobstructive punctate calculi in the mid lower pole of the left kidney as well as the right kidney. Mild degree of left hydronephrosis. Fullness of the right renal pelvis. Bladder: Distended urinary bladder. Bowel: Moderate-sized hiatal hernia. Small umbilical hernia containing fat. There is increased density within the umbilical hernia as well as the peritoneal fat just deep to the abdominal wall deep to the umbilicus. This may represent trapping of the peritoneal fat. This may be the cause of patient's pain. Appendix: The appendix is not identified. There is no inflammatory process identified in the right lower quadrant to suggest appendicitis. Lymph nodes: Unremarkable. Vasculature: Mild diffuse atherosclerotic calcifications are noted. Peritoneum / Retroperitoneum: Bones: Status post bilateral total hip replacement causing beam hardening artifact and limited visualization of the pelvic structures. CT/Abdomen/Pelvis W IV Cont ONLY IMPRESSION: Bilateral nonobstructive intrarenal calculi more prominent on the left side. Umbilical hernia as described with increased density within the hernia as well as the anterior peritoneal fat just deep to the umbilicus suggestive of possible incarceration. Clinical correlation recommend ed. Reading Location: [facility]
[2024-10-26 14:59] LABS: Color, Urine Yellow (Yellow); Glucose, Dipstick Normal (Normal); Ketone-Dipstick Negative (Negative); Leukocyte Esterase-Dipstick 25 /ul (Negative); Nitrite-Dipstick Negative (Negative); Occult Blood-Urine 25 /ul (Negative); Protein-Dipstick 30 mg/dl (Negative); Urine Bilirubin Dipstick Negative (Negative); Urine Clarity Clear (Clear); Urine Urobilinogen Normal (Normal); Urine pH 6.5 (5.0 - 8.0)
[2024-10-26 15:06] LABS: Lactic Acid 1.7 mmol/L (0.0-2.0)
[2024-10-26 15:08] LABS: Red Blood Cells-Urine 0-5 SEEN /hpf (0-5); Squamous Epithelial Cells - UA 0-5 SEEN /hpf (0-5); White Blood Cells 0-5 SEEN /hpf (0-5)
--- NOTE | 2024-10-26 16:19 | EKG12_ITS ---
Test Reason : P Blood Pressure : */* mmHG Vent. Rate : 53 BPM Atrial Rate : 53 BPM P-R Int : 220 ms QRS Dur : 98 ms QT Int : 448 ms P-R-T Axes : 48 16 51 degrees QTcB Int : 420 ms Sinus bradycardia with 1st degree A-V block Incomplete right bundle branch block Borderline ECG Confirmed by CROW GARCÍA, AALIYAH ([id number]), offline editor MICHAEL CABEZAS ([id number]) on 10/28/2024 9:22:39 AM Referred By: LUZ MARIA Confirmed By: AALIYAH MARIA MD
--- NOTE | 2024-10-26 16:23 | PCM.HP.STD ---
HPI - General General Date of Admission: 10/26/24 HPI Narrative ANUPAMA MARSH, is a 79 M who presents due to umbilical hernia. Patient states he has had this for 50 years. On Thursday he started noticed maybe a little bit bigger than usual also had not really been able to have a bowel movement. Patient was able to tolerate diet during this time. Patient did take some laxative last night was able to have a bowel movement today. However there is some color change at the umbilical hernia site which had him concerned so he came to the ER. ER physician was able to push some of the hernia back in but there is still some contents that were out. Unable to get a great story from patient if he has been able to push it back in or not sounds like he has been tried maybe for at least a year. Previous abdominal surgeries appendectomy and inguinal hernia surgery. [facility] Medical History Contact dermatitis due to poison francois Hypertension History of MRSA infection Wears glasses Anxiety Uses wheelchair Arthritis Kidney stones High cholesterol Gastric reflux Non-smoker CPAP (continuous positive airway pressure) dependence Sleep apnea History of pain when walking History of stress test History of echocardiogram Cardiology follow-up encounter BPH (benign prostatic hyperplasia) Dyslipidemia Nephrolithiasis Coronary artery disease Home Medications ?Medication ?Instructions ?Recorded ?Last Taken ?Type Venlafaxine Xr [Effexor Xr] 150 mg PO QHS DEPRESSION 04/04/15 04/14/15 History aspirin 81 mg tablet,delayed 81 mg PO QHS BLOOD THINNER 04/04/15 04/14/15 History release atorvastatin 40 mg tablet 40 mg PO QHS CHOLESTEROL 04/04/15 04/14/15 History finasteride 5 mg tablet 5 mg PO QHS URINATION 04/04/15 04/14/15 History sildenafil 100 mg tablet (Viagra) 100 mg PO DAILY PRN PRN Not 04/04/15 Unknown History Specified tamsulosin 0.4 mg capsule 0.4 mg PO QHS URINATION 04/04/15 04/14/15 History Omeprazole [Prilosec] 40 mg PO DAILY GERD 01/23/17 12/20/21 History doxazosin 4 mg tablet,extended 4 mg PO DAILY HEART 01/23/17 12/20/21 History release 24 hr (Cardura XL) cholecalciferol (vitamin D3) 25 25 mcg PO DAILY SUPPLEMENT 12/17/21 Unknown History mcg (1,000 unit) capsule (Vitamin D3) gabapentin 100 mg capsule 200 mg PO QHS PAIN 12/17/21 Unknown History losartan 50 mg tablet 50 mg PO DAILY BP 12/17/21 12/20/21 History multivitamin 1 tab PO DAILY SUPPLEMENT 12/17/21 Unknown History zinc 50 mg tablet 50 mg PO DAILY SUPPLEMENT 12/17/21 Unknown History acetaminophen 500 mg tablet 1,000 mg (2 x 500 mg) PO Q8 #100 12/21/21 Unknown Rx tabs doxycycline monohydrate 100 mg 100 mg PO BID 13 days #26 caps 12/21/21 Unknown Rx capsule ferrous sulfate 325 mg (65 mg 325 mg PO 1200,1700 14 days #28 12/21/21 Unknown Rx iron) tablet (FeroSul) tabs folic acid 1 mg tablet 1 mg PO BIDCM 14 days #28 tabs 12/21/21 Unknown Rx oxycodone 5 mg tablet 5 - 10 mg (1 - 2 x 5 mg) PO Q4H 12/21/21 Unknown Rx PRN PRN Pain Score 4-10 5 days #42 tabs rivaroxaban 10 mg tablet (Xarelto) 10 mg PO DAILY@0600 #13 tabs 12/21/21 Unknown Rx sennosides 8.6 mg-docusate sodium 2 tab PO BID #20 tabs 12/21/21 Unknown Rx 50 mg tablet (Stool Softener-Stimulant Laxative) prednisone 10 mg tablet 10 mg PO DIRECTED #30 tabs 01/28/23 Unknown Rx Allergy/AdvReac Type Severity Reaction Status Date / Time No Known Allergies Allergy Verified 10/26/24 11:34 Surgical History Hx of bilateral cataract extraction Hx of hernia repair Hx of appendectomy History of carpal tunnel release of both wrists Hx of repair of right rotator cuff Hx of repair of left rotator cuff Hx of bilateral hip replacements Social History (Updated 10/26/24 @ 14:[address] Bill Gary MD) household members: spouse Smoking Status: Never smoker Vital Signs Vital Signs Vital Signs: 10/26/24 11:31 10/26/24 14:27 Temperature 98.2 F Temperature Source Oral Pulse Rate 73 56 L Respiratory Rate 17 16 Blood Pressure 102/76 162/73 H Blood Pressure Mean 84 102 Pulse Ox 100 99 Oxygen Delivery Method Room Air Room Air Weight Weight: 230 lb 4.8 oz Body Mass Index (BMI) 33.0 Physical Exam Const alert, oriented x3 and no apparent distress HEENT normocephalic and head/scalp atraumatic Resp normal respiratory effort Cardio regular rate GI soft to palpation; Negative for non-distended GI Narrative: Umbilical hernia, incarcerated, tender while trying to reduce otherwise nontender, slight erythema likely due to previous pressure to attempt to reduce Palpation: Negative for guarding Extremity no clubbing, cyanosis or edema Skin no rashes or lesions noted Neuro CN's II-XII intact bilaterally Psych mental status grossly normal Results Lab / Micro Data 10/26/24 11:54 10/26/24 11:54 Labs: Laboratory Results - last 24 hr 10/26/24 11:54: WBC 5.0, RBC 4.32 L, Hgb 13.2, Hct 39.2 L, MCV 90.7, MCH 30.6, MCHC 33.7, RDW Std Deviation 41.7, RDW Coeff of Renato 12.8, Plt Count 146 L, MPV 9.7, Immature Gran % (Auto) 0.400, Neut % (Auto) 64.3, Lymph % (Auto) 21.6, [place] % (Auto) 8.3, Eos % (Auto) 4.4, Baso % (Auto) 1.0, Absolute Neuts (auto) 3.2, Absolute Lymphs (auto) 1.07, Nucleated RBC % 0, Sodium 138, Potassium 4.4, Chloride 104, Carbon Dioxide 25.2, Anion Gap 9, BUN 16, Creatinine 0.94, Estim Creat Clear Calc 75.87, Est GFR (MDRD) Non-Af 82, BUN/Creatinine Ratio 17.1, Glucose 121 H, Calcium 9.4, Total Bilirubin 0.43, AST 28, ALT 25, Alkaline Phosphatase 77, Total Protein 7.2, Albumin 4.4, Globulin 2.8, Albumin/Globulin Ratio 1.5, Lipase 25 10/26/24 14:19: Lactic Acid 1.7 10/26/24 14:43: Urine Color Yellow, Urine Clarity Clear, Urine pH 6.5, Ur Specific [place] 1.010, Urine Protein 30 H, Urine Glucose (UA) Normal, Urine Ketones Negative, Urine Occult Blood 25 H, Urine Nitrite Negative, Urine Bilirubin Negative, Urine Urobilinogen Normal, Ur Leukocyte Esterase 25 H, Urine RBC 0-5 SEEN, Urine WBC 0-5 SEEN, Ur Squamous Epith Cells 0-5 SEEN, Urine Bacteria 0 SEEN, Urine Mucus 0 SEEN Imaging Radiology Impression Abdomen/Pelvis CT 10/26/24 14:50 IMPRESSION: Bilateral nonobstructive intrarenal calculi more prominent on the left side. Umbilical hernia as described with increased density within the hernia as well as the anterior peritoneal fat just deep to the umbilicus suggestive of possible incarceration. Clinical correlation recommended. Reading Location: [facility]-1 Assessment & Plan Assessment/Plan (1) Incarcerated umbilical hernia: PLAN: Plan Discussed with patient and his plan for incarcerated medical hernia repair with possible mesh, possible bowel resection. Discussed procedure including but not limited to bleeding, infection, injury to another organ, recurrence and anesthesia patient had no other questions this time. Vickie Limon M.D. Pager: [phone] [facility] [address] [place] [address], [address] [place] [address] Office: [phone]
--- NOTE | 2024-10-26 17:23 | ED.RN ---
REPORT CALLED TO NURSE TAMEKA AT THIS TIME
--- NOTE | 2024-10-26 17:30 | HERN_PTH ---
PATIENT: ANUPAMA MARSH LOC: MS3 U#:[id number] AGE/SX: 79/M ROOM: [facility] RE10/26/[address]: Dr. Vickie Limon MD : 1945 BED: 1 DIS: 10/26/2024 SPEC #: [id number] RECD: 10/27/24 11:21 STATUS: JOSHUA RERonnie #: [id number] RAZ: 10/26/24 17:[address]: Vickie Limon DEPT: SURGICAL PATHOLOGY RECD BY: Gustavo Kevin ENTERED: 10/27/24 11:21 SP TYPE: Hernia OTHR DR: Dr. Abe Payne MD Tissues: A - HERNIA Procedures: Surgery Specimen Level II HEADER OPERATION: Hernia, umbilical repair with mesh PRE-OP DIAGNOSIS: Incarcerated umbilical hernia TISSUE SUBMITTED: A- Hernia sac and contents MICROSCOPIC DIAGNOSIS A. Umbilical Hernia, Incarcerated Sac and Contents, excision: * Fibroadipose tissue partially covered by an attenuated mesothelium consistent with hernia sac, with focal nodular fat necrosis. MICROSCOPIC DESCRIPTION Slides are reviewed. GROSS DESCRIPTION A. Received in formalin in a container labeled with the patient's name, date of , and hernia sac and contents are 2 tucker-lord, rubbery fragments of soft tissue measuring 3.5 x 2.3 x 0.8 cm and 3.5 x 2.3 x 1.2 cm. The largest fragment is notable for a 1.4 x 1.2 x 1.0 cm tucker-yellow, indurated nodule. Serial sections reveal yellow and granular surfaces with central pallor. The remaining specimens are sectioned to reveal tucker-yellow, lobulated surfaces with no hemorrhage or necrosis. Watershed Manager sections:A1-2. Majority of nodule with sampled fatty soft tissue [facility] 10-27-2024 CPT:27527
--- NOTE | 2024-10-26 17:49 | PCM.PRE.AN2 ---
ASA Classification* ASA Classification ASA Classification: 3 and E Assessment & Plan Anesthesia* Anesthesia Assessment Anesthesia Assessment: Discussed sedation and/or anesthesia options, risks, benefits, and alternatives with patient/parents/legal guardian/POA. Questions invited. The patient/parents/legal guardian/POA seems to understand and agrees to proceed with anesthesia plan. Reviewed the physical assessment, medical history, allergy history and patient home medications list prior to surgery/procedure/anesthetic and documented any changes. Performed airway and anesthesia risk assessments. Anesthesia Type Anesthesia Type: General Anesthesia Focused Assessment* Temperature: 98 F Pulse Rate: 66 Blood Pressure: 154/78 Respiratory Rate: 12 Pulse Ox: 99 Airway Assessment Mouth opens: >3 cm Mallampati Score: II Focused Labs Anesthesia Preop lab: CBC WBC 5.0 K/mm3 (4.4-11.0) 10/26/24 11:54 10/26/24 RBC 4.32 M/mm3 (4.6-6.2) L 10/26/24 11:54 10/26/24 Hgb 13.2 g/dL (13.0-16.5) 10/26/24 11:54 10/26/24 Hct 39.2 % (40-54) L 10/26/24 11:54 10/26/24 Plt Count 146 K/mm3 (150-450) L 10/26/24 11:54 10/26/24 CHEMISTRY Potassium 4.4 mmol/L (3.3-5.1) 10/26/24 11:54 10/26/24 Sodium 138 mmol/L (133-145) 10/26/24 11:54 10/26/24 Magnesium 2.3 mg/dL (1.6-2.6) 12/20/21 11:50 12/20/21 BUN 16 mg/dL (4-19) 10/26/24 11:54 10/26/24 Creatinine 0.94 mg/dL (0.70-1.20) 10/26/24 11:54 10/26/24 Glucose 121 mg/dL (70-99) H 10/26/24 11:54 10/26/24 POC Glucose 185 mg/dL (74-106) H 12/20/21 18:14 12/20/21 COAG Pre-Assessment Diagnosis/Proposed Procedure Planned Operative Procedure(s): Umbilical hernia repair Anesthesia History Anesthesia History - content management specialist: Anesthesia History - content management specialist Hx Hospitalization No 12/17/21 15:19 Any Problems With Anesthesia No 10/26/24 17:03 Cholinesterase deficiency No 10/26/24 17:03 You/Your Family Experience No 10/26/24 17:03 fever (hyperthermia) with Relationship Recent Exposure to Contagious No 10/26/24 17:03 Disease Does patient have nerve No 10/26/24 17:03 stimulator Patient instructed to have device shut off --Does patient have Pacemaker No 10/26/24 17:03 or ICD? When Was Last Pacemaker Check QUESTION #4 FULL TEXT: You/Your Family Experience fever (hyperthermia) with Anesthesia Last Oral Intake Last Oral intake: Last Oral Intake NPO since 08:00 10/26/24 17:03 Meds taken in AM with sips of water? 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 - content management specialist: PONV - content management specialist Female HX of Motion Sickness HX of N/V After Surgery Non-Smoker Duration of Surgery greater than 60 minutes Number of Risk Factors PONV Score Height & Weight Height & Weight: Anesthesia: Height & Weight Height 5 ft 10 in 10/26/24 17:03 Weight: 104.462 kg 10/26/24 17:03 Body Mass Index (BMI) 33.0 10/26/24 17:03 Respiratory Assessment Respiratory Assessment - content management specialist: Respiratory Tract Infection Hx - content management specialist Hx Respiratory Tract Infection No 10/26/24 17:03 STOP Sleep Apnea STOP Sleep Apnea - content management specialist: STOP Sleep Apnea - content management specialist Hx Hypertension Yes 10/26/24 17:03 Hx Sleep Apnea Yes 10/26/24 17:03 CPAP Yes 10/26/24 17:03 BIPAP No 10/26/24 17:03 Do you snore loudly (louder than talking or can be heard Do you often feel tired/ fatigued/ sleepy during daytime? Has anyone observed you stop breathing during sleep? STOP Results Positive 10/26/24 17:03 QUESTION #5 FULL TEXT : Do you snore loudly (louder than talking or can be heard through closed doors)? Tobacco Use History Tobacco Use History - content management specialist: Tobacco Use History - content management specialist Tobacco Use Smoking Status Never smoker 10/26/24 14:37 Hx Tobacco Use No 12/20/21 19:14 Years Smoking Packs Smoked per Day Smoking Cessation Date was within the last 15 years Hx Smoking Cessation Date Hx Smoking Cessation Counseling Hematologic Medial History Hematologic Hx - content management specialist: Hematologic Medical Hx - business process analyst Hx of Blood Transfusion Hx of Transfusion in last 3 Months Date of Last Transfusion (if within last 3 months) Ever experience any problems with transfusion(s)? Specify any problems Hx of Preganancy in last 3 Months Nurse Filling Out Transfusion & Questions: Date: Time: Patient unable to answer at this time (ie. confused, unrespo /Reproduction History /Reproductive History - content management specialist: /Reproductive Hx- content management specialist Hx Now No 10/26/24 17:03 Gestational Age (in weeks): EDC: Hx Hx Para Hx Section SAB No 10/26/24 17:03 Active Medications Active Medications: Current Medications Generic Name Dose Route Start Last Admin Trade Name Freq PRN Reason Stop Dose Admin Cefazolin Sodium 2 gm/ N/A 20 mls @ 400 mls/hr 10/26/24 18:00 IV 10/26/24 18:02 PREOP ONE [facility] Medical History Contact dermatitis due to poison francois Hypertension History of MRSA infection Wears glasses Anxiety Uses wheelchair Arthritis Kidney stones High cholesterol Gastric reflux Non-smoker CPAP (continuous positive airway pressure) dependence Sleep apnea History of pain when walking History of stress test History of echocardiogram Cardiology follow-up encounter BPH (benign prostatic hyperplasia) Dyslipidemia Nephrolithiasis Coronary artery disease Home Medications ?Medication ?Instructions ?Recorded ?Last Taken ?Type Venlafaxine Xr [Effexor Xr] 150 mg PO QHS DEPRESSION 04/04/15 04/14/15 History aspirin 81 mg tablet,delayed 81 mg PO QHS BLOOD THINNER 04/04/15 04/14/15 History release atorvastatin 40 mg tablet 40 mg PO QHS CHOLESTEROL 04/04/15 04/14/15 History finasteride 5 mg tablet 5 mg PO QHS URINATION 04/04/15 04/14/15 History tamsulosin 0.4 mg capsule 0.4 mg PO QHS URINATION 04/04/15 04/14/15 History Omeprazole [Prilosec] 40 mg PO DAILY GERD 01/23/17 12/20/21 History doxazosin 4 mg tablet,extended 4 mg PO DAILY HEART 01/23/17 12/20/21 History release 24 hr (Cardura XL) cholecalciferol (vitamin D3) 25 25 mcg PO DAILY SUPPLEMENT 12/17/21 Unknown History mcg (1,000 unit) capsule (Vitamin D3) gabapentin 100 mg capsule 200 mg PO QHS PAIN 12/17/21 Unknown History losartan 50 mg tablet 50 mg PO DAILY BP 12/17/21 12/20/21 History multivitamin 1 tab PO DAILY SUPPLEMENT 12/17/21 Unknown History zinc 50 mg tablet 50 mg PO DAILY SUPPLEMENT 12/17/21 Unknown History doxycycline monohydrate 100 mg 100 mg PO BID 13 days #26 caps 12/21/21 Unknown Rx capsule ferrous sulfate 325 mg (65 mg 325 mg PO 1200,1700 14 days #28 12/21/21 Unknown Rx iron) tablet (FeroSul) tabs folic acid 1 mg tablet 1 mg PO BIDCM 14 days #28 tabs 12/21/21 Unknown Rx sennosides 8.6 mg-docusate sodium 2 tab PO BID #20 tabs 12/21/21 Unknown Rx 50 mg tablet (Stool Softener-Stimulant Laxative) rivaroxaban 10 mg tablet (Xarelto) 10 mg PO DAILY@0600 PRN SURGERY 10/26/24 Unknown History Allergy/AdvReac Type Severity Reaction Status Date / Time No Known Allergies Allergy Verified 10/26/24 11:34 Surgical History Hx of bilateral cataract extraction Hx of hernia repair Hx of appendectomy History of carpal tunnel release of both wrists Hx of repair of right rotator cuff Hx of repair of left rotator cuff Hx of bilateral hip replacements Social History household members: spouse Smoking Status: Never smoker Review of Systems (Anesthesia) ROS Narrative System reviewed and no additional complaints, except as documented.
[2024-10-26] MEDS: 0.9% Normal Saline (1000mL) 1,000 ML 15 ML IV (17:55)
[2024-10-26] MEDS: Cefazolin 2 GM in Syringe IV (18:16)
--- NOTE | 2024-10-26 18:36 | PCM.OPRPT ---
Operative Report (Standard) Operative Information Date of Procedure: 10/26/24 Pre-Operative Diagnosis: Incarcerated umbilical hernia Post-Operative Diagnosis: Same Surgery/Procedure Performed: Incarcerated umbilical hernia repair technology applications teacher: Yes Mechanical Design Technician: Jaun Bryant Tasks completed by nurse first assist: Opening & closing Type of Anesthesia: General/Supplemental RN Documented Start/Stop Times: Operation Date: 10/26/24 17:30 Case Time Into Pre-Op 10/26/24 17:29 Out of Pre-Op 10/26/24 18:01 Anesthesia Start 10/26/24 18:02 Into Room 10/26/24 18:02 Procedure Start 10/26/24 18:16 Procedure End 10/26/24 18:48 Anesthesia End 10/26/24 18:53 Out of Room 10/26/24 18:53 Into Recovery 10/26/24 18:55 Out of Recovery 10/26/24 19:47 Procedure Start Time: 18:16 Procedure Stop Time: 18:48 Select all DRAINS/GRAFTS/IMPLANTS that apply: None Special Medications: Ancef 2 g IV x 1 Estimated Blood Loss: <10 cc Specimen collected: Yes Description of specimen(s) removed: Umbilical sac and content Description of surgery: Patient was brought into the room placed supine on the operating table. Correct patient, procedure, site, positioning, special, was verified prior to procedure. General anesthesia was induced. The abdomen was prepped draped in usual sterile fashion. A curvilinear incision was made below the umbilicus with a 15 blade scalpel. This was deepened with electrocautery. A hemostat was used to go around the stalk of the umbilicus and Metzenbaum scissors was used to carefully divide the hernia sac from the skin of the umbilicus. The fascia around the hernia defect was cleared and the hernia defect measured 1.4 x 1 cm. Hernia sac and likely calcified nodule connected to hernia sac sent to pathology. The hernia defect was closed with a [id number] 1 Nurolon. The wound was irrigated with saline. Hemostasis was assured. The skin of the umbilicus was secured to the fascia using 3-0 Vicryl suture interrupted. The incision was closed with 3-0 Vicryl subdermal interrupted sutures and the skin was closed with interrupted 4-0 Monocryl sutures. Steri-Strips and Tegaderm and OpSite were placed over the incision once sterile cotton balls were placed in the umbilicus. Patient was extubated. Patient tolerated procedure well and was taken to the postanesthesia care unit in stable condition. Surgical Findings: See operative report Complications Complications: No
--- NOTE | 2024-10-26 18:41 | DCINST_ITS ---
Discharge Instructions Diet Discharge Diet: Light diet - advance as tolerated Activity May shower in (days): 5 (Keep umbilical dressing clean dry and intact for 5 days. Okay to tape off with a Ziploc bag to shower. Or lower shower and upper sponge bath.) Lifting Restrictions: no lifting >20 lbs x 2 wks, no strenuous exercise for 4 wks Additional Activity Instructions:: - Dressing / Incision Call your doctor if your incision/area has: Continuous Slow Oozing, Sudden Increased Bleeding, Increased Pain/ Swelling, Increased Redness, Foul Smelling Discharge and Swelling at the incision site Call your doctor if you observe: Fever of 101 or Higher Remove Dressing in: 5 days (After 5 days okay to remove surgical dressing. Place cotton ball or rolled up gauze in bellybutton and retape daily for 2 more days.) Cleanse incision/area with: Do not get Incision Wet (for 5 days) Additional Dressing/Incision Instructions:: Steri-Strips will fall off in 7 to 10 days, if they do not fall off okay to remove after 10 days. Follow Up Care Please Follow Up With: Vickie Limon MD When: Call the office for a follow-up appointment 2 weeks; after 5 PM and on the weekends call [phone] with any concerns. Test Results: Test results from this visit will be discussed in further detail at your follow- up appointment, if applicable. Discharge Plan Admission Admit Date/Time: 10/26/24 17:41 Attending Provider: Vickie Limon Primary Care Provider: Abe Payne Discharge Orders/Prescriptions Prescriptions: New tramadol 50 mg tablet 50 mg PO Q6H PRN (Reason: pain) Qty: 7 0RF Continued atorvastatin 40 MG tablet 40 mg PO QHS Patient Comments: CHOLESTEROL LOWERING tamsulosin 0.4 MG capsule 0.4 mg PO QHS Patient Comments: PROSTATE finasteride 5 MG tablet 5 mg PO QHS Patient Comments: PROSTATE Venlafaxine Xr [Effexor Xr] 75 MG capsule 150 mg PO QHS Patient Comments: DEPRESSION Cardura XL 4 MG tablet extended release 24hr 4 mg PO DAILY Omeprazole [Prilosec] 40 MG capsule 40 mg PO DAILY multivitamin Tablet 1 tab PO DAILY losartan 50 mg tablet 50 mg PO DAILY Patient Comments: TAKE 1 TABLET BY MOUTH EVERY DAY zinc 50 mg Tablet 50 mg PO DAILY gabapentin 100 mg capsule 200 mg PO QHS Patient Comments: TAKE 2 CAPSULES BY MOUTH EVERY DAY AT BEDTIME cholecalciferol (vitamin D3) [Vitamin D3] 25 mcg (1,000 unit) Capsule 25 mcg PO DAILY ferrous sulfate [FeroSul] 325 mg (65 mg iron) Tablet 325 mg PO 1200,1700 14 Days Qty: 28 0RF folic acid 1 mg Tablet 1 mg PO BIDCM 14 Days Qty: 28 0RF sennosides-docusate sodium [Stool Softener-Stimulant Laxat] 8.6-50 mg Tablet 2 tab PO BID Qty: 20 0RF Rx Instructions: Take until first bowel movement, then as needed Held aspirin 81 MG tablet 81 mg PO QHS Hold Instructions: Resume on 10/28/24. Patient Comments: HEART HEALTH Discontinued doxycycline monohydrate 100 mg Capsule 100 mg PO BID 13 Days Qty: 26 0RF Rx Instructions: Take for 2 weeks postoperatively while following cultures Xarelto 10 mg Tablet 10 mg PO DAILY@0600 PRN (Reason: SURGERY) Rx Instructions: Take for 2 weeks postoperatively for DVT prophylaxis Referrals / Follow Up: Abe Payne MD [Primary Care Provider] - Disposition Disposition (needs filled in before D/C Order can be placed): Home, Self Care
[2024-10-26] MEDS: Bupivacaine Mpf 0.5% 30 ML VIAL (18:47)
--- NOTE | 2024-10-26 18:56 | PCM.POST.ANE ---
Anesthesia: Postop Eval I Current Vital Signs Temperature: 97.2 F Pulse Rate: 62 Blood Pressure: 122/60 Respiratory Rate: 16 Pulse Ox: 96 Oxygen Delivery Method: Room Air Assessment Airway patent: Yes Spontaneous unlabored respirations: Yes Mental status: Awake nausea: No Vomiting: No Anesthesia Complication: No Fluid Hydration Crystalloid volume administer (ml): 400 Total IV fluid infused: 400 Progress Note Anesthesia document: Postop Eval 1 completed: Yes
--- NOTE | 2024-10-26 18:58 | PCM.POSTANE2 ---
Anesthesia Postop Eval I Sum Postop Eval Completion status Anesthesia document: Postop Eval 1 completed: Yes Anesthesia Postop Eval I Summary Anesthesia Postop Eval I Summary: Anesthesia Postop Eval I: Assessment Summary Airway patent Yes 10/26/24 18:57 Spontaneous unlabored Yes 10/26/24 18:57 respirations Mental status Awake 10/26/24 18:57 nausea No 10/26/24 18:57 Vomiting No 10/26/24 18:57 Anesthesia Postop Eval I: Fluid Summary Crystalloid volume administer 400 10/26/24 18:57 (ml) Colloids volume administered ( ml) Blood Product volume administered (ml) Total IV fluid infused 400 10/26/24 18:57 Anesthesia Postop Eval I: Summary Notes Anesthesia Complication No 10/26/24 18:57 Anesthesia Complication Comment: Post-operative progress note Anesthesia: Postop Eval II Evaluation Mental status: Awake Pain Level: 1 nausea: No Vomiting: No
[2024-10-26] MEDS: 0.9% Normal Saline (1000mL) 1,000 ML 60 ML IV (20:43)
== END 2024-10-26 22:15 | disposition home or self-care (01) ==
LOC: ED 16:25 → MS3 18:43 → SDC 10-27 02:30 → MS3 10-27 02:30
PROVIDERS: Emergency Medicine; Admitting Provider Surgery; Emergency Provider Emergency Medicine; PCP Family Medicine; Visit Provider Surgery
PROC: (CPT 49592; principal; 2024-10-26 17:15)
DX: K42.0 Umbilical hernia with obstruction, without gangrene (principal); I25.10 Atherosclerotic heart disease of native coronary artery without angina pectoris; N40.0 Benign prostatic hyperplasia without lower urinary tract symptoms; E78.00 Pure hypercholesterolemia, unspecified; I10 Essential (primary) hypertension; G47.33 Obstructive sleep apnea (adult) (pediatric); I44.0 Atrioventricular block, first degree; F32.A Depression, unspecified; K21.9 Gastro-esophageal reflux disease without esophagitis; D50.9 Iron deficiency anemia, unspecified; Z79.01 Long term (current) use of anticoagulants; Z79.82 Long term (current) use of aspirin; Z79.899 Other long term (current) drug therapy
CPT/HCPCS: 49592; 00830; 74177; 80053; 81001; 83605; 83690; 85025; 88302; 93005; 96361; 96374; 99284; Q9967; A4216

== ENCOUNTER 2024-11-24 07:19 | Emergency (ER) | payer MEDICARE, OTHER, SELFPAY ==
[2024-11-24 07:20] VITALS: BP 176/85; PULSE 76; RESP 18; TEMP 36.8; O2SAT 97; BMI 33.7
--- NOTE | 2024-11-24 07:32 | EX.ED.DYSGE1 ---
HPI History of Present Illness Chief Complaint: Complaint Narrative Narrative: 79-year-old male presents with his because of painless hematuria that began yesterday evening. He states he noticed that yesterday he might of had dark red blood in his urine. He awoke again this morning, was able to urinate, and noticed continued dark red blood. While he states that he sees Dr. Guidry from urology and has always had microscopic hematuria over the last 2 years, this is the first time that he is ever had dark red blood in his urine. He denies any difficulty urinating, no fevers or chills, no nausea or vomiting, no flank pain. No exacerbating or alleviating factors. Denies other bleeding diathesis. [facility] Medical History Contact dermatitis due to poison francois Hypertension History of MRSA infection Wears glasses Anxiety Uses wheelchair Arthritis Kidney stones High cholesterol Gastric reflux Non-smoker CPAP (continuous positive airway pressure) dependence Sleep apnea History of pain when walking History of stress test History of echocardiogram Cardiology follow-up encounter BPH (benign prostatic hyperplasia) Dyslipidemia Nephrolithiasis Coronary artery disease Home Medications ?Medication ?Instructions ?Recorded ?Last Taken ?Type Venlafaxine Xr [Effexor Xr] 150 mg PO QHS DEPRESSION 04/04/15 04/14/15 History aspirin 81 mg tablet,delayed 81 mg PO QHS BLOOD THINNER 04/04/15 04/14/15 History release atorvastatin 40 mg tablet 40 mg PO QHS CHOLESTEROL 04/04/15 04/14/15 History finasteride 5 mg tablet 5 mg PO QHS URINATION 04/04/15 04/14/15 History tamsulosin 0.4 mg capsule 0.4 mg PO QHS URINATION 04/04/15 04/14/15 History Omeprazole [Prilosec] 40 mg PO DAILY GERD 01/23/17 12/20/21 History doxazosin 4 mg tablet,extended 4 mg PO DAILY HEART 01/23/17 12/20/21 History release 24 hr (Cardura XL) cholecalciferol (vitamin D3) 25 25 mcg PO DAILY SUPPLEMENT 12/17/21 Unknown History mcg (1,000 unit) capsule (Vitamin D3) gabapentin 100 mg capsule 200 mg PO QHS PAIN 12/17/21 Unknown History losartan 50 mg tablet 50 mg PO DAILY BP 12/17/21 12/20/21 History multivitamin 1 tab PO DAILY SUPPLEMENT 12/17/21 Unknown History Allergy/AdvReac Type Severity Reaction Status Date / Time No Known Allergies Allergy Verified 11/09/24 14:36 Surgical History S/P umbilical hernia repair, follow-up exam Hx of bilateral cataract extraction Hx of hernia repair Hx of appendectomy History of carpal tunnel release of both wrists Hx of repair of right rotator cuff Hx of repair of left rotator cuff Hx of bilateral hip replacements Social History household members: spouse Smoking Status: Never smoker ROS ROS ED ROS Narrative Review of systems positive for dark red blood in urine, no flank pain, no fevers or chills, no nausea or vomiting. No pain with urination. No other bleeding. No hematemesis. EXAM Physical Exam Narrative Exam Narrative: Afebrile. Vital signs noted. Nontoxic-appearing. Cardiovascular examination reveals a regular rate and rhythm. Lungs are clear to auscultation bilaterally. Abdomen is soft, nontender, without guarding or rebound. Positive bowel sounds. Neurological examination nonfocal and nonlateralizing. Skin examination without extreme pallor. Const Vital Signs: 11/24/24 07:20 11/24/24 08:03 Temperature 98.3 F 98.3 F Temperature Source Oral Temporal Pulse Rate 76 76 Respiratory Rate 18 18 Blood Pressure 176/85 H 175/85 H Blood Pressure Mean 115 115 Pulse Ox 97 97 Oxygen Delivery Method Room Air MDM MDM MDM Narrative Medical decision making narrative: Differential diagnosis includes but not limited to bladder mass versus tumor versus hemorrhagic cystitis. Patient is able to urinate so I have low suspicion for urinary retention. CBC will be obtained to check to make sure that he is not having anemia requiring transfusion but his physical exam goes against this. I will check a BMP to check his kidney function. Urinalysis will be obtained to rule out infection. I do feel that he requires CT imaging at this time to look for bladder mass or tumor. I reviewed his laboratory work and he has normal white count of 4.5 with hemoglobin 12.7 and stable when compared to previous labs. BUN elevated at 20 with creatinine normal at 1.18. Urinalysis is positive for nitrites with greater than 100 RBCs but 0-5 WBCs and 0 bacteria. While I do not feel antibiotics are indicated, this was sent for culture. I reviewed the radiology report of the CT of the abdomen pelvis which shows a 10 x 15 mm left upper pole kidney stone, but no evidence of obstruction. Patient remains pain-free on repeat examination and is motivated for discharge. I discussed patient with his urologist, Dr. Guidry, who agrees with outpatient follow-up. Patient is to make an appointment with him within the next week. Return instructions to the emergency department were reviewed. Disposition is discharged home in stable condition. History & Record Review Discussion w/independent historian: Patient Lab Data Attestation: I reviewed the patient's lab results. Labs: Laboratory Results - last 24 hr 11/24/24 11/24/24 07:45 07:50 WBC 4.5 RBC 4.16 L Hgb 12.7 L Hct 37.5 L MCV 90.1 MCH 30.5 MCHC 33.9 RDW Std Deviation 40.8 RDW Coeff of Renato 12.4 Plt Count 141 L MPV 9.8 Immature Gran % (Auto) 0.200 Neut % (Auto) 68.3 Lymph % (Auto) 20.5 Bates % (Auto) 5.6 Eos % (Auto) 4.5 Baso % (Auto) 0.9 Absolute Neuts (auto) 3.1 Absolute Lymphs (auto) 0.92 Nucleated RBC % 0 Sodium 135 Potassium 4.2 Chloride 103 Carbon Dioxide 22.4 Anion Gap 11 BUN 20 H Creatinine 1.18 Estim Creat Clear Calc 61.18 Est GFR (MDRD) Non-Af 62 BUN/Creatinine Ratio 16.8 Glucose 140 H Calcium 9.0 Urine Color Sheela Urine Clarity Sl. Cloudy Urine pH 7.0 Ur Specific Carlisle 1.010 Urine Protein 500 H Urine Glucose (UA) 1000 H Urine Ketones 50 H Urine Occult Blood 250 H Urine Nitrite Positive H Urine Bilirubin 6 H Urine Urobilinogen 12 H Ur Leukocyte Esterase 500 H Urine RBC > 100 SEEN Urine WBC 0-5 SEEN Ur Squamous Epith Cells 0 SEEN Urine Bacteria 0 SEEN Urine Mucus 0 SEEN Radiography Diagnostic Testing: Clinical Impression(s) from Imaging Studies Abdomen/Pelvis CT 11/24/24 08:40 IMPRESSION: 1. Similar nonobstructing intrarenal calculi. No hydronephrosis or definite ureteral calculus identified noting that the ureters are partially obscured distally by artifact related to bilateral hip arthroplasty. 2. Nonspecific nodular soft tissue thickening at the umbilicus and involving the underlying mesentery is increased from 10/26/2024. Given the relatively short interval change, recommend clinical follow-up and correlation with exam to exclude an focal soft tissue infection. 3. Abdominal aortic ectasia to 2.6 cm. Recommend follow-up in 5 years per 2013 ACR recommendations. 4. Appendix not identified. No definite inflammation in the region. 5. Additional description as above. Reading Location: [id number] Discharge Plan Triage Chief Complaint: Complaint ED Provider: Graham Thibodeaux Dx/Rx/DC Orders Clinical Impression: Hematuria, Kidney stone on left side Instructions: ED Hematuria, ED Kidney Stone No Sx Prescriptions: No Action atorvastatin 40 MG tablet 40 mg PO QHS Patient Comments: CHOLESTEROL LOWERING aspirin 81 MG tablet 81 mg PO QHS Patient Comments: [facility] tamsulosin 0.4 MG capsule 0.4 mg PO QHS Patient Comments: PROSTATE finasteride 5 MG tablet 5 mg PO QHS Patient Comments: PROSTATE Venlafaxine Xr [Effexor Xr] 75 MG capsule 150 mg PO QHS Patient Comments: DEPRESSION Cardura XL 4 MG tablet extended release 24hr 4 mg PO DAILY Omeprazole [Prilosec] 40 MG capsule 40 mg PO DAILY multivitamin Tablet 1 tab PO DAILY losartan 50 mg tablet 50 mg PO DAILY Patient Comments: TAKE 1 TABLET BY MOUTH EVERY DAY gabapentin 100 mg capsule 200 mg PO QHS Patient Comments: TAKE 2 CAPSULES BY MOUTH EVERY DAY AT BEDTIME cholecalciferol (vitamin D3) [Vitamin D3] 25 mcg (1,000 unit) Capsule 25 mcg PO DAILY Primary Care Provider: Abe Payne Referrals: Dennis Guidry MD [Med Staff - Active Staff] - 1 Week Abe Payne MD [Primary Care Provider] - Activity Restrictions/Additional Instructions: Follow-up with Dr. Guidry. Make an appointment to be seen within the next week. Return to the emergency department with fever, symptoms of pain, inability to urinate, new or worsening symptoms. Print Language: Lithuanian Disposition Disposition: Home, Self Care
[2024-11-24 07:58] LABS: Bacteria 0 SEEN /hpf (None Seen); Mucous, Urine 0 SEEN /hpf (<or=2+); Squamous Epithelial Cells - UA 0 SEEN /hpf (0-5)
[2024-11-24 08:01] LABS: Absolute Lymphocyte Count 0.92 X10^3/uL (0.83-4.51); Absolute Neutrophil Count 3.1 X10^3/uL (2.0-7.7); Basophil# 0.04 X10^3/uL; Basophil% 0.9 % (0-1); Eosinophils% 4.5 % (0-5); Hematocrit 37.5 % (40-54); Hemoglobin 12.7 g/dL (13.0-16.5); Lymphocyte # 0.92 X10^3/ul (0.83-4.51); Lymphocyte % 20.5 % (19-41); Mean Corp Hgb Conc 33.9 g/dL (32-36); Mean Corpuscular Hgb 30.5 pg (27.0-32.0); Mean Corpuscular Volume 90.1 fL (80-94); Mean Platelet Vol. 9.8 fl (6.2-12.0); Monocyte# 0.25 X10^3/uL; Monocyte% 5.6 % (0-10); NRBC Flagged by Analyzer 0 % (0-5); Neutrophil # 3.07 X10^3/uL (2.7-7.7); Neutrophil % 68.3 % (47-70); Platelet Count 141 K/mm3 (150-450); RBC Distribution Width CV 12.4 % (11.6-14.6); RBC Distribution Width SD 40.8 fl (35.1-43.9); Red Blood Count 4.16 M/mm3 (4.6-6.2); White Blood Count 4.5 K/mm3 (4.4-11.0)
[2024-11-24 08:03] VITALS: BP 175/85; PULSE 76; RESP 18; TEMP 36.8; O2SAT 97
[2024-11-24 08:15] LABS: Color, Urine Amber (Yellow); Glucose, Dipstick 1000 mg/dl (Normal); Ketone-Dipstick 50 mg/dl (Negative); Leukocyte Esterase-Dipstick 500 /ul (Negative); Nitrite-Dipstick Positive (Negative); Occult Blood-Urine 250 /ul (Negative); Protein-Dipstick 500 mg/dl (Negative); Urine Clarity Sl. Cloudy (Clear); Urine Urobilinogen 12 mg/dl (Normal)
[2024-11-24 08:16] LABS: Urine Bilirubin Dipstick 6 mg/dL (Negative)
[2024-11-24 08:23] LABS: Red Blood Cells-Urine > 100 SEEN /hpf (0-5); White Blood Cells 0-5 SEEN /hpf (0-5)
--- NOTE | 2024-11-24 08:40 | CT_ITS ---
PROCEDURE: ABDOMEN/PELVIS WITHOUT CONT (CTABDPEL), N/A REASON FOR EXAM: HEMATURIA TECHNIQUE: CT abdomen and pelvis was performed without IV contrast. Multiplanar reformats were generated. RADIATION DOSE SUMMARY: CTDlvol: 18.91 mGy DLP: 940.82 mGycm One or more dose reduction techniques were used (e.g., Automated exposure control, adjustment of the mA and/or kV according to patient size, use of iterative reconstruction technique). COMPARISON: 10/26/2024 FINDINGS: Note that evaluation of the abdominopelvic viscera, vasculature, and remaining soft tissues is limited in the absence of IV contrast. Portions of the pelvis are obscured by artifact related to bilateral hip arthroplasty. Lung bases: Atelectasis/scarring. Moderate hiatal hernia. Coronary atherosclerosis and/or stents. Aortic annular calcification.. Liver: Tiny LEFT lobe hypodensity too small to characterize, unchanged from 06/22/2019, likely cyst or hemangioma. Spleen: Unremarkable. Gallbladder: Unremarkable. Pancreas: Unremarkable. Adrenals: Unremarkable. Kidneys: Similar bilateral nonobstructing intrarenal calculi up to 15 x 10 mm in the LEFT upper pole. Small RIGHT renal cyst. Portions of the distal ureters difficult to trace and obscured by artifact. No hydronephrosis or definite ureteral calculus, where visible. 1 Bowel: Mild sigmoid diverticulosis.. Appendix not identified. No definite inflammation in the region. Lymph nodes: Unremarkable. Vasculature: Moderate atherosclerosis. Mild ectasia of the abdominal aorta to 2.6 x 2.5 cm.. Peritoneum: Unremarkable. Bladder: Partially obscured by artifact, grossly unremarkable where visible.. Reproductive Organs: Partially obscured by artifact. Suspect prostatomegaly.. Body Wall: Small fat containing RIGHT inguinal hernia. Nonspecific nodular soft tissue thickening at the umbilicus and involving the underlying mesentery has increased from 10/26/2024, 3.9 x 2.9 cm. Bones: Partially imaged bilateral hip arthroplasty. Multilevel spondylosis. Variable spinal canal stenoses probably up to severe, suboptimally delineated by CT. Prominent degenerative changes at the pubic symphysis.. CT/Abdomen/Pelvis without Cont IMPRESSION: 1. Similar nonobstructing intrarenal calculi. No hydronephrosis or definite ur eteral calculus identified noting that the ureters are partially obscured distally by artifact related to bilateral hip arthroplas ty. 2. Nonspecific nodular soft tissue thickening at the umbilicus and involving th e underlying mesentery is increased from 10/26/2024. Given the relatively short interval change, recommend clinical fol low-up and correlation with exam to exclude an focal soft tissue infection. 3. Abdominal aortic ectasia to 2.6 cm. Recommend follow-up in 5 years per 2013 ACR recommendations. 4. Appendix not identified. No definite inflammation in the region. 5. Additional description as above. Reading Location: [id number]
[2024-11-24 08:44] LABS: Anion Gap 11 (5-15); BUN 20 mg/dL (4-19); BUN/Creat Ratio 16.8 RATIO (10-20); Carbon Dioxide 22.4 mmol/L (21.0-32.0); Chloride 103 mmol/L (98-108); Creatinine, Serum 1.18 mg/dL (0.70-1.20); EST Glomerular Filtration Rate 62 (>60); Estimated Creatinine Clearance 61.18 ml/min (50-250); Glucose 140 mg/dL (70-99); Potassium 4.2 mmol/L (3.3-5.1); Sodium Level 135 mmol/L (133-145)
[2024-11-24 09:35] VITALS: BP 112/76; PULSE 65; RESP 16; TEMP 36.6; O2SAT 100
== END 2024-11-24 09:36 | disposition home or self-care (01) ==
PROVIDERS: Emergency Provider Emergency Medicine; PCP Family Medicine; Visit Provider Emergency Medicine
DX: N20.0 Calculus of kidney (principal); R31.29 Other microscopic hematuria; I25.10 Atherosclerotic heart disease of native coronary artery without angina pectoris; I10 Essential (primary) hypertension; E78.00 Pure hypercholesterolemia, unspecified; Z79.82 Long term (current) use of aspirin; Z79.899 Other long term (current) drug therapy
CPT/HCPCS: 74176; 80048; 81001; 85025; 87086; 87088; 99283; A4216

== ENCOUNTER 2024-12-14 08:39 | Day surgery (SDC) | payer MEDICARE, OTHER, SELFPAY ==
--- NOTE | 2024-12-08 17:52 | PAT.ANESEVAL ---
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 When Was Last Pacemaker Check QUESTION #4 FULL TEXT: You/Your Family Experience fever (hyperthermia) with Anesthesia Last Oral Intake Last Oral intake: Last Oral Intake NPO since Meds taken in AM with sips of water? 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 - music video producer: PONV - music video producer Female No 12/08/24 14:19 HX of Motion Sickness No 12/08/24 14:19 HX of N/V After Surgery No 12/08/24 14:19 Non-Smoker Yes 12/08/24 14:19 Duration of Surgery greater Yes 12/08/24 14:19 than 60 minutes Number of Risk Factors 2 12/08/24 14:19 PONV Score Moderate Risk 12/08/24 14:19 Height & Weight Height & Weight: Anesthesia: Height & Weight Height 5 ft 10.08 in 11/24/24 07:20 Respiratory Assessment Respiratory Assessment - music video producer: Respiratory Tract Infection Hx - music video producer Hx Respiratory Tract Infection No 12/08/24 14:19 STOP Sleep Apnea STOP Sleep Apnea - music video producer: STOP Sleep Apnea - music video producer Hx Hypertension Yes: CONTROLLED WITH MEXD 12/08/24 14:19 Hx Sleep Apnea Yes 12/08/24 14:19 CPAP Yes 12/08/24 14:19 BIPAP No 12/08/24 14:19 Do you snore loudly (louder than talking or can be heard Do you often feel tired/ fatigued/ sleepy during daytime? Has anyone observed you stop breathing during sleep? STOP Results Positive 12/08/24 14:19 QUESTION #5 FULL TEXT : Do you snore loudly (louder than talking or can be heard through closed doors)? 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 Specify any problems Hx of Preganancy in last 3 N/A 12/08/24 14:19 Months Nurse Filling Out Transfusion DSCHRIBER 12/08/24 14:19 & Questions: Date: 12/08/24 12/08/24 14:19 Time: 14:20 12/08/24 14:19 Patient unable to answer at this time (ie. confused, unrespo /Reproduction History /Reproductive History - music video producer: /Reproductive Hx- music video producer Hx Now No 12/08/24 14:19 Gestational Age (in weeks): EDC: Hx Hx Para Hx Section SAB No 12/08/24 14:19 PFSH Medical History Loss of hearing Prostate disease Low iron Restless legs Hypertension History of MRSA infection Wears glasses Anxiety Arthritis High cholesterol Gastric reflux Non-smoker CPAP (continuous positive airway pressure) dependence History of pain when walking History of stress test History of echocardiogram Cardiology follow-up encounter BPH (benign prostatic hyperplasia) Dyslipidemia Nephrolithiasis Coronary artery disease Home Medications ?Medication ?Instructions ?Recorded ?Last Taken ?Type Venlafaxine Xr [Effexor Xr] 150 mg PO QHS DEPRESSION 04/04/15 04/14/15 History aspirin 81 mg tablet,delayed 81 mg PO QHS BLOOD THINNER 04/04/15 12/07/24 History release atorvastatin 40 mg tablet 40 mg PO QHS CHOLESTEROL 04/04/15 04/14/15 History finasteride 5 mg tablet 5 mg PO QHS URINATION 04/04/15 04/14/15 History tamsulosin 0.4 mg capsule 0.4 mg PO QHS URINATION 04/04/15 04/14/15 History Omeprazole [Prilosec] 40 mg PO DAILY GERD 01/23/17 12/20/21 History doxazosin 4 mg tablet,extended 4 mg PO QHS HEART 01/23/17 12/20/21 History release 24 hr (Cardura XL) cholecalciferol (vitamin D3) 25 25 mcg PO DAILY SUPPLEMENT 12/17/21 Unknown History mcg (1,000 unit) capsule (Vitamin D3) gabapentin 100 mg capsule 200 mg PO QHS PAIN 12/17/21 Unknown History losartan 50 mg tablet 50 mg PO DAILY BP 12/17/21 12/20/21 History multivitamin 1 tab PO DAILY SUPPLEMENT 12/17/21 Unknown History tramadol 50 mg tablet 50 mg PO 4X/DAY PRN PRN pain 12/08/24 Unknown History Allergy/AdvReac Type Severity Reaction Status Date / Time No Known Allergies Allergy Verified 12/08/24 14:16 Surgical History S/P umbilical hernia repair, follow-up exam Hx of bilateral cataract extraction Hx of hernia repair Hx of appendectomy History of carpal tunnel release of both wrists Hx of repair of right rotator cuff Hx of repair of left rotator cuff Hx of bilateral hip replacements Social History household members: spouse Smoking Status: Never smoker Addt'l Information Additional Findings: 10/26/24 EKG incomlete RBBB, 1st degree av block NSR Audit: Pertinent Findings HISTORY of Pertinent Findings History of Pertinent Findings: Patient has >4 METs. proceed Recommendation Anesthesia Recommendation Anesthesia recommendation: OPTIMIZED for anesthesia
[2024-12-14] VITALS (7 sets, daily range): BP systolic 136–155; BP diastolic 63–133; PULSE 51–57; RESP 14–16; TEMP 36.1–37.2; O2SAT 91–100; BMI 32.5
--- NOTE | 2024-12-14 08:44 | PCM.PRE.AN2 ---
ASA Classification* ASA Classification ASA Classification: 2 Assessment & Plan Anesthesia* Anesthesia Assessment Anesthesia Assessment: Discussed sedation and/or anesthesia options, risks, benefits, and alternatives with patient/parents/legal guardian/POA. Questions invited. The patient/parents/legal guardian/POA seems to understand and agrees to proceed with anesthesia plan. Reviewed the physical assessment, medical history, allergy history and patient home medications list prior to surgery/procedure/anesthetic and documented any changes. Performed airway and anesthesia risk assessments. Anesthesia Type Anesthesia Type: General Anesthesia Focused Assessment* Airway Assessment Mouth opens: >3 cm Mallampati Score: II Focused Labs Anesthesia Preop lab: CBC WBC 4.5 K/mm3 (4.4-11.0) 11/24/24 07:45 11/24/24 RBC 4.16 M/mm3 (4.6-6.2) L 11/24/24 07:45 11/24/24 Hgb 12.7 g/dL (13.0-16.5) L 11/24/24 07:45 11/24/24 Hct 37.5 % (40-54) L 11/24/24 07:45 11/24/24 Plt Count 141 K/mm3 (150-450) L 11/24/24 07:45 11/24/24 CHEMISTRY Potassium 4.2 mmol/L (3.3-5.1) 11/24/24 07:45 11/24/24 Sodium 135 mmol/L (133-145) 11/24/24 07:45 11/24/24 Magnesium 2.3 mg/dL (1.6-2.6) 12/20/21 11:50 12/20/21 BUN 20 mg/dL (4-19) H 11/24/24 07:45 11/24/24 Creatinine 1.18 mg/dL (0.70-1.20) 11/24/24 07:45 11/24/24 Glucose 140 mg/dL (70-99) H 11/24/24 07:45 11/24/24 POC Glucose 185 mg/dL (74-106) H 12/20/21 18:14 12/20/21 COAG Pre-Assessment Diagnosis/Proposed Procedure Planned Operative Procedure(s): CYSTO LEFT URETEROSCOPY LASER STONE LEFT STENT Anesthesia History Anesthesia History - health care recruiter: Anesthesia History - health care recruiter Hx Hospitalization No 12/08/24 14:19 Any Problems With Anesthesia No 12/08/24 14:19 Cholinesterase deficiency No 12/08/24 14:19 You/Your Family Experience No 12/08/24 14:19 fever (hyperthermia) with Relationship Recent Exposure to Contagious No 10/26/24 17:03 Disease Does patient have nerve No 12/08/24 14:19 stimulator Patient instructed to have device shut off --Does patient have Pacemaker or ICD? When Was Last Pacemaker Check QUESTION #4 FULL TEXT: You/Your Family Experience fever (hyperthermia) with Anesthesia Last Oral Intake Last Oral intake: Last Oral Intake NPO since Meds taken in AM with sips of water? 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 - health care recruiter: PONV - health care recruiter Female No 12/08/24 14:19 HX of Motion Sickness No 12/08/24 14:19 HX of N/V After Surgery No 12/08/24 14:19 Non-Smoker Yes 12/08/24 14:19 Duration of Surgery greater Yes 12/08/24 14:19 than 60 minutes Number of Risk Factors 2 12/08/24 14:19 PONV Score Moderate Risk 12/08/24 14:19 Height & Weight Height & Weight: Anesthesia: Height & Weight Height 5 ft 10.08 in 11/24/24 07:20 Respiratory Assessment Respiratory Assessment - health care recruiter: Respiratory Tract Infection Hx - health care recruiter Hx Respiratory Tract Infection No 12/08/24 14:19 STOP Sleep Apnea STOP Sleep Apnea - health care recruiter: STOP Sleep Apnea - health care recruiter Hx Hypertension Yes: CONTROLLED WITH MEXD 12/08/24 14:19 Hx Sleep Apnea Yes 12/08/24 14:19 CPAP Yes 12/08/24 14:19 BIPAP No 12/08/24 14:19 Do you snore loudly (louder than talking or can be heard Do you often feel tired/ fatigued/ sleepy during daytime? Has anyone observed you stop breathing during sleep? STOP Results Positive 12/08/24 14:19 QUESTION #5 FULL TEXT : Do you snore loudly (louder than talking or can be heard through closed doors)? Tobacco Use History Tobacco Use History - health care recruiter: Tobacco Use History - health care recruiter Tobacco Use Smoking Status Never smoker 12/08/24 14:19 Hx Tobacco Use No 12/08/24 14:19 Years Smoking Packs Smoked per Day Smoking Cessation Date was within the last 15 years Hx Smoking Cessation Date Hx Smoking Cessation Counseling Hematologic Medial History Hematologic Hx - health care recruiter: Hematologic Medical Hx - paper wood cutter Hx of Blood Transfusion No 12/08/24 14:19 Hx of Transfusion in last 3 No 12/08/24 14:19 Months Date of Last Transfusion (if within last 3 months) Ever experience any problems No 12/08/24 14:19 with transfusion(s)? Specify any problems Hx of Preganancy in last 3 N/A 12/08/24 14:19 Months Nurse Filling Out Transfusion DSCHRIBER 12/08/24 14:19 & Questions: Date: 12/08/24 12/08/24 14:19 Time: 14:20 12/08/24 14:19 Patient unable to answer at this time (ie. confused, unrespo /Reproduction History /Reproductive History - health care recruiter: /Reproductive Hx- health care recruiter Hx Now No 12/08/24 14:19 Gestational Age (in weeks): EDC: Hx Hx Para Hx Section SAB No 12/08/24 14:19 Active Medications Active Medications: Current Medications Generic Name Dose Route Start Last Admin Trade Name Freq PRN Reason Stop Dose Admin Cefazolin Sodium 2 gm/ Sodium 110 mls @ 150 mls/hr 12/14/24 10:00 Chloride IV 12/14/24 10:43 INTRAOP ONE [facility] Medical History Loss of hearing Prostate disease Low iron Restless legs Hypertension History of MRSA infection Wears glasses Anxiety Arthritis High cholesterol Gastric reflux Non-smoker CPAP (continuous positive airway pressure) dependence History of pain when walking History of stress test History of echocardiogram Cardiology follow-up encounter BPH (benign prostatic hyperplasia) Dyslipidemia Nephrolithiasis Coronary artery disease Home Medications ?Medication ?Instructions ?Recorded ?Last Taken ?Type Venlafaxine Xr [Effexor Xr] 150 mg PO QHS DEPRESSION 04/04/15 04/14/15 History aspirin 81 mg tablet,delayed 81 mg PO QHS BLOOD THINNER 04/04/15 12/07/24 History release atorvastatin 40 mg tablet 40 mg PO QHS CHOLESTEROL 04/04/15 04/14/15 History finasteride 5 mg tablet 5 mg PO QHS URINATION 04/04/15 04/14/15 History tamsulosin 0.4 mg capsule 0.4 mg PO QHS URINATION 04/04/15 04/14/15 History Omeprazole [Prilosec] 40 mg PO DAILY GERD 01/23/17 12/20/21 History doxazosin 4 mg tablet,extended 4 mg PO QHS HEART 01/23/17 12/20/21 History release 24 hr (Cardura XL) cholecalciferol (vitamin D3) 25 25 mcg PO DAILY SUPPLEMENT 12/17/21 Unknown History mcg (1,000 unit) capsule (Vitamin D3) gabapentin 100 mg capsule 200 mg PO QHS PAIN 12/17/21 Unknown History losartan 50 mg tablet 50 mg PO DAILY BP 12/17/21 12/20/21 History multivitamin 1 tab PO DAILY SUPPLEMENT 12/17/21 Unknown History tramadol 50 mg tablet 50 mg PO 4X/DAY PRN PRN pain 12/08/24 Unknown History Allergy/AdvReac Type Severity Reaction Status Date / Time No Known Allergies Allergy Verified 12/08/24 14:16 Surgical History S/P umbilical hernia repair, follow-up exam Hx of bilateral cataract extraction Hx of hernia repair Hx of appendectomy History of carpal tunnel release of both wrists Hx of repair of right rotator cuff Hx of repair of left rotator cuff Hx of bilateral hip replacements Social History household members: spouse Smoking Status: Never smoker Review of Systems (Anesthesia) ROS Narrative System reviewed and no additional complaints, except as documented.
--- NOTE | 2024-12-14 09:22 | PCM.HP.STD ---
HPI - General General Date of Service: 12/14/24 Chief Complaint: Large left kidney stone HPI Narrative ANUPAMA MARSH, is a 79 M who presents to treat a large left kidney stone with laser lithotripsy and stent placement patient understands this possibly may need more than 1 surgical procedure for such a large stone we will proceed with laser lithotripsy today. And stent placement [facility] Medical History (Updated 12/14/24 @ 09:[address] Dennis Guidry MD) Kidney stone on left side Loss of hearing Prostate disease Low iron Restless legs Hypertension History of MRSA infection Wears glasses Anxiety Arthritis High cholesterol Gastric reflux Non-smoker CPAP (continuous positive airway pressure) dependence History of pain when walking History of stress test History of echocardiogram Cardiology follow-up encounter BPH (benign prostatic hyperplasia) Dyslipidemia Nephrolithiasis Coronary artery disease Home Medications ?Medication ?Instructions ?Recorded ?Last Taken ?Type Venlafaxine Xr [Effexor Xr] 150 mg PO QHS DEPRESSION 04/04/15 12/13/24 History aspirin 81 mg tablet,delayed 81 mg PO QHS BLOOD THINNER 04/04/15 12/07/24 History release atorvastatin 40 mg tablet 40 mg PO QHS CHOLESTEROL 04/04/15 12/13/24 History finasteride 5 mg tablet 5 mg PO QHS URINATION 04/04/15 12/13/24 History tamsulosin 0.4 mg capsule 0.4 mg PO QHS URINATION 04/04/15 12/13/24 History Omeprazole [Prilosec] 40 mg PO DAILY GERD 01/23/17 12/13/24 History doxazosin 4 mg tablet,extended 4 mg PO QHS HEART 01/23/17 12/13/24 History release 24 hr (Cardura XL) cholecalciferol (vitamin D3) 25 25 mcg PO DAILY SUPPLEMENT 12/17/21 12/13/24 History mcg (1,000 unit) capsule (Vitamin D3) gabapentin 100 mg capsule 200 mg PO QHS PAIN 12/17/21 12/13/24 History losartan 50 mg tablet 50 mg PO DAILY BP 12/17/21 12/14/24 History multivitamin 1 tab PO DAILY SUPPLEMENT 12/17/21 12/13/24 History tramadol 50 mg tablet 50 mg PO 4X/DAY PRN PRN pain 12/08/24 12/13/24 History Allergy/AdvReac Type Severity Reaction Status Date / Time No Known Allergies Allergy Verified 12/08/24 14:16 Surgical History S/P umbilical hernia repair, follow-up exam Hx of bilateral cataract extraction Hx of hernia repair Hx of appendectomy History of carpal tunnel release of both wrists Hx of repair of right rotator cuff Hx of repair of left rotator cuff Hx of bilateral hip replacements Social History household members: spouse Smoking Status: Never smoker Vital Signs Vital Signs Vital Signs: 12/14/24 09:14 12/14/24 09:14 Temperature 98.9 F Temperature Source Temporal Pulse Rate 51 L Respiratory Rate 16 Respiratory Pattern Normal Blood Pressure 136/69 H Blood Pressure Mean 91 Blood Pressure Source Monitor Blood Pressure Position Semi-Fowlers Blood Pressure Location Left Arm Pulse Ox 100 Oxygen Delivery Method Room Air Weight Weight: 103 kg Body Mass Index (BMI) 32.5 Assessment & Plan Assessment/Plan (1) Kidney stone on left side: PLAN: Plan for laser lithotripsy and stent placement left side
--- NOTE | 2024-12-14 09:23 | DCINST_ITS ---
Discharge Instructions Diet Discharge Diet: No restrictions DC O2, CPAP, BIPAP needs Home O2 Discharge instructions: No Dressing / Incision Discharge Activity: Return to Normal Activity and May Not Drive (while taking narcotic pain medications.) Dressing / Incision Call your doctor if you observe: Fever of 101 or Higher Follow Up Care Please Follow Up With: Dennis Guidry MD When: Call [phone] for an appointment Test Results: Test results from this visit will be discussed in further detail at your follow- up appointment, if applicable. Discharge Plan Admission Attending Provider: Dennis Guidry Primary Care Provider: Abe Payne Instructions Print Language: Jordanian Discharge Orders/Prescriptions Prescriptions: No Action atorvastatin 40 MG tablet 40 mg PO QHS Patient Comments: CHOLESTEROL LOWERING aspirin 81 MG tablet 81 mg PO QHS Patient Comments: HEART HEALTH tamsulosin 0.4 MG capsule 0.4 mg PO QHS Patient Comments: PROSTATE finasteride 5 MG tablet 5 mg PO QHS Patient Comments: PROSTATE Venlafaxine Xr [Effexor Xr] 75 MG capsule 150 mg PO QHS Patient Comments: DEPRESSION Cardura XL 4 MG tablet extended release 24hr 4 mg PO QHS Omeprazole [Prilosec] 40 MG capsule 40 mg PO DAILY multivitamin Tablet 1 tab PO DAILY losartan 50 mg tablet 50 mg PO DAILY Patient Comments: TAKE 1 TABLET BY MOUTH EVERY DAY gabapentin 100 mg capsule 200 mg PO QHS Patient Comments: TAKE 2 CAPSULES BY MOUTH EVERY DAY AT BEDTIME cholecalciferol (vitamin D3) [Vitamin D3] 25 mcg (1,000 unit) Capsule 25 mcg PO DAILY tramadol 50 mg tablet 50 mg PO 4X/DAY PRN PRN (Reason: pain) Referrals / Follow Up: Abe Payne MD [Primary Care Provider] - Disposition Disposition (needs filled in before D/C Order can be placed): Home, Self Care
[2024-12-14] MEDS: Ketorolac 30 MG/ML Syringe IV (09:25)
[2024-12-14] MEDS: Cefazolin 2 GM in 0.9% Normal Saline (100mL Bag) 100 ML IV (09:49)
--- NOTE | 2024-12-14 10:58 | OP.PCM_ITS ---
Operative Report (Standard) Operative Information Date of Procedure: 12/14/24 Pre-Operative Diagnosis: Large left renal calculi Post-Operative Diagnosis: The same Surgery/Procedure Performed: Cystoscopy left ureteroscopy laser lithotripsy of stones and left stent placement environmental technical officer: No Type of Anesthesia: General RN Documented Start/Stop Times: Operation Date: 12/14/24 10:00 Case Time Into Pre-Op 12/14/24 08:50 Out of Pre-Op 12/14/24 09:46 Anesthesia Start 12/14/24 09:49 Into Room 12/14/24 09:49 Procedure Start 12/14/24 10:04 Procedure End 12/14/24 10:56 Procedure Start Time: 10:04 Procedure Stop Time: 10:56 Select all DRAINS/GRAFTS/IMPLANTS that apply: Drains Drain details: Left stent 6 x 26 Estimated Blood Loss: None Specimen collected: No Description of surgery: This is a an 79-year-old male with been having gross hematuria and workup he was found to have multiple large stone in the left kidney bladder was otherwise normal does have an enlarged prostate but he claims to be urinating okay does a little bit of retention of urine when he urinates but minimal symptoms. Workup found to have multiple large stones in left kidney this is probably the most likely source of his hematuria is a small stone in the right kidney organ to watch today regular plan the laser the stone in the left kidney he will need a stent because a large stone burden Patient was taken back to the operating room after induction of anesthesia he was placed in dorsolithotomy position. The penis testicles were prepped and draped in usual fashion went into the bladder with a flexible ureteroscope was able to identify the right ureteral orifice use a Glidewire to cannulate the right ureteral orifice and over the wire went in with a flexible ureteroscope and then went up the ureter and it went up the renal pelvis and then from the renal pelvis I went up into the midpole calyx and encountered the first large stone energy settings were 80 Hz and 0.1 J lasered the stone completely into small dust pieces some of the fragments went to the upper pole I then went to the upper bone finish lasering these pieces and the dust I then performed ureteroscopy and then found another fragment in the lower pole of the left kidney this was lasered again into dust using the energy settings of 100 Hz and 0.1 J, 20 W. Once this was lasered completely went back to the renal pelvis just a bunch of dust fragments in the renal pelvis no major fragments were left I worked my way down the ureter no other fragments along the course of the u reter no injury trauma or damage to the ureter put a wire up into the kidney and then over the wire backloaded the cystoscope and then put a stent up in the left kidney also during the ureteroscopy pick case I did drain the bladder with a 12 Mongolian red rubber catheter to decompress the bladder. After the stent was in place the wire was coiled and removed and the stent coiled in the kidney bladder good position patient's bladder was drained he is taken back to the PACU in good condition we will see him in 2 weeks for cystoscopy stent removal Surgical Findings: Multiple large stones lasered completely into dust and left kidney Complications Complications: No Admit VTE Documentation VTE Present on Admission: No VTE Mechan Device Prophylaxis: SCD's VTE Pharm Prophylaxis ordered?: No
--- NOTE | 2024-12-14 11:47 | PCM.POST.ANE ---
Anesthesia: Postop Eval I Current Vital Signs Temperature: 97.2 F Pulse Rate: 57 Blood Pressure: 146/63 Respiratory Rate: 16 Pulse Ox: 94 Assessment Airway patent: Yes Spontaneous unlabored respirations: Yes nausea: No Vomiting: No Anesthesia Complication: No Fluid Hydration Crystalloid volume administer (ml): 800 Total IV fluid infused: 800 Progress Note Anesthesia document: Postop Eval 1 completed: Yes
--- NOTE | 2024-12-14 13:17 | POSTOPAN2_ITS ---
Anesthesia Postop Eval I Sum Postop Eval Completion status Anesthesia document: Postop Eval 1 completed: Yes Anesthesia Postop Eval I Summary Anesthesia Postop Eval I Summary: Anesthesia Postop Eval I: Assessment Summary Airway patent Yes 12/14/24 11:47 DIRECTOR OF PERIOPERATIVE SERVICES.[email or web address] Spontaneous unlabored Yes 12/14/24 11:47 DIRECTOR OF PERIOPERATIVE [email or web address] respirations Mental status nausea No 12/14/24 11:47 DIRECTOR OF PERIOPERATIVE SERVICES.[email or web address] Vomiting No 12/14/24 11:47 DIRECTOR OF PERIOPERATIVE [email or web address] Anesthesia Postop Eval I: Fluid Summary Crystalloid volume administer 800 12/14/24 11:47 DIRECTOR OF PERIOPERATIVE [email or web address] (ml) Colloids volume administered ( ml) Blood Product volume administered (ml) Total IV fluid infused 800 12/14/24 11:47 DIRECTOR OF PERIOPERATIVE SERVICES.[email or web address] Anesthesia Postop Eval I: Summary Notes Anesthesia Complication No 12/14/24 11:47 DIRECTOR OF PERIOPERATIVE [email or web address] Anesthesia Complication Comment: Post-operative progress note Anesthesia: Postop Eval II Evaluation Mental status: Awake Pain Level: 1 nausea: No Vomiting: No
--- NOTE | 2024-12-14 13:17 | PCM.POSTANE2 ---
Anesthesia Postop Eval I Sum Postop Eval Completion status Anesthesia document: Postop Eval 1 completed: Yes Anesthesia Postop Eval I Summary Anesthesia Postop Eval I Summary: Anesthesia Postop Eval I: Assessment Summary Airway patent Yes 12/14/24 11:47 SUPERVISOR RIDE [email or web address] Spontaneous unlabored Yes 12/14/24 11:47 SUPERVISOR RIDE [email or web address] respirations Mental status nausea No 12/14/24 11:47 SUPERVISOR RIDE [email or web address] Vomiting No 12/14/24 11:47 SUPERVISOR RIDE [email or web address] Anesthesia Postop Eval I: Fluid Summary Crystalloid volume administer 800 12/14/24 11:47 SUPERVISOR RIDE [email or web address] (ml) Colloids volume administered ( ml) Blood Product volume administered (ml) Total IV fluid infused 800 12/14/24 11:47 SUPERVISOR RIDE [email or web address] Anesthesia Postop Eval I: Summary Notes Anesthesia Complication No 12/14/24 11:47 SUPERVISOR RIDE [email or web address] Anesthesia Complication Comment: Post-operative progress note Anesthesia: Postop Eval II Evaluation Mental status: Awake Pain Level: 1 nausea: No Vomiting: No
== END 2024-12-14 12:15 | disposition home or self-care (01) ==
LOC: SDC 08:40 → AC 08:41
PROVIDERS: PCP Family Medicine; Referring Provider Urology; Visit Provider Urology
PROC: 0TJ98ZZ Inspection of Ureter, Via Natural or Artificial Opening Endoscopic (ICD-10-PCS; CPT 52352; principal; 2024-12-14 09:50)
DX: N20.0 Calculus of kidney (principal); N40.1 Benign prostatic hyperplasia with lower urinary tract symptoms; R33.8 Other retention of urine; I25.10 Atherosclerotic heart disease of native coronary artery without angina pectoris; I10 Essential (primary) hypertension; E78.00 Pure hypercholesterolemia, unspecified; Z79.82 Long term (current) use of aspirin; Z79.899 Other long term (current) drug therapy
CPT/HCPCS: 52356; 00918; C1769; C2617; J2405

== ENCOUNTER 2024-12-16 07:58 | Emergency (ER) | payer MEDICARE, OTHER, SELFPAY ==
[2024-12-16 07:58] VITALS: BP 158/66; PULSE 78; RESP 18; TEMP 38.4; O2SAT 96; BMI 33.2
[2024-12-16 08:12] VITALS: BP 145/78; PULSE 74; RESP 15; TEMP 38.4; O2SAT 98
--- NOTE | 2024-12-16 08:13 | EDS_ITS ---
HPI History of Present Illness Chief Complaint: Flank Pain Informant: patient Onset/Context/Timing Onset: Today and Hours Context: Gradual Onset Timing: Continuous Current Severity: Mild Maximum Severity: Mild Narrative Narrative: 79-year-old male history of kidney stones, hypertension and CAD. On Thursday he had a procedure done for a kidney stone with a stent placed. Since he was feeling well this morning he woke up he was a little disoriented and had chills. Did not realize he had a fever. Was treated at home with ibuprofen and Tylenol. Is having mild dysuria. Denies any cough. Denies any abdominal pain. Prior similar symptoms: No Recent Illness/Hospitalization: No PFSH PFSH Medical History Kidney stone on left side Loss of hearing Prostate disease Low iron Restless legs Hypertension History of MRSA infection Wears glasses Anxiety Arthritis High cholesterol Gastric reflux Non-smoker CPAP (continuous positive airway pressure) dependence History of pain when walking History of stress test History of echocardiogram Cardiology follow-up encounter BPH (benign prostatic hyperplasia) Dyslipidemia Nephrolithiasis Coronary artery disease Home Medications ?Medication ?Instructions ?Recorded ?Last Taken ?Type aspirin 81 mg tablet,delayed 81 mg PO QHS BLOOD THINNE R 04/04/15 12/07/24 History release Held on 12/14/24. Instructions: Resume on 12/28/24. atorvastatin 40 mg tablet 40 mg PO QHS CHOLESTEROL 04/1012/15/24 History finasteride 5 mg tablet 5 mg PO QHS URINATION 12/15/24 History tamsulosin 0.4 mg capsule 0.4 mg PO QHS URINATION 04/1012/15/24 History doxazosin 4 mg tablet,extended 4 mg PO QHS HEART 01/2312/15/24 History release 24 hr (Cardura XL) cholecalciferol (vitamin D3) 25 25 mcg PO DAILY SUPPLE MENT 12/17/21 12/15/24 History mcg (1,000 unit) capsule (Vitamin D3) gabapentin 100 mg capsule 200 mg PO QHS PAIN 12/17/21 12/15/24 History losartan 50 mg tablet 50 mg PO DAILY BP 12/17/21 0 12/16/24 History multivitamin 1 tab PO DAILY SUPPLEMENT 12/16/24 History tramadol 50 mg tablet 50 mg PO 4X/DAY PRN pain 12/15/24 History ibuprofen 600 mg tablet 600 mg PO Q6H PRN pain #20 t abs 12/14/24 12/16/24 Rx acetaminophen 500 mg capsule 1,000 mg PO Q4H PRN pain 12/16/24 12/16/24 History ciprofloxacin HCl 500 mg tablet 500 mg PO BID 10 days #20 tabs 12/16/24 Unknown Rx (Cipro) omeprazole 20 mg capsule,delayed 40 mg PO DAILY 12/16/24 History release venlafaxine 150 mg 150 mg PO DAILY 12/16/24 History capsule,extended release 24 hr Allergy/AdvReac Type Severity Reaction Status Date / Time No Known Allergies Allergy Verified 12/16/24 07:59
--- NOTE | 2024-12-16 08:13 | EX.ED.DYSGE1 ---
HPI History of Present Illness Chief Complaint: Flank Pain Informant: patient Onset/Context/Timing Onset: Today and Hours Context: Gradual Onset Timing: Continuous Current Severity: Mild Maximum Severity: Mild Narrative Narrative: 79-year-old male history of kidney stones, hypertension and CAD. On Thursday he had a procedure done for a kidney stone with a stent placed. Since he was feeling well this morning he woke up he was a little disoriented and had chills. Did not realize he had a fever. Was treated at home with ibuprofen and Tylenol. Is having mild dysuria. Denies any cough. Denies any abdominal pain. Prior similar symptoms: No Recent Illness/Hospitalization: No PFSH PFSH Medical History Kidney stone on left side Loss of hearing Prostate disease Low iron Restless legs Hypertension History of MRSA infection Wears glasses Anxiety Arthritis High cholesterol Gastric reflux Non-smoker CPAP (continuous positive airway pressure) dependence History of pain when walking History of stress test History of echocardiogram Cardiology follow-up encounter BPH (benign prostatic hyperplasia) Dyslipidemia Nephrolithiasis Coronary artery disease Home Medications ?Medication ?Instructions ?Recorded ?Last Taken ?Type aspirin 81 mg tablet,delayed 81 mg PO QHS BLOOD THINNER 04/04/15 12/07/24 History release Held on 12/14/24. Instructions: Resume on 12/28/24. atorvastatin 40 mg tablet 40 mg PO QHS CHOLESTEROL 04/04/15 12/15/24 History finasteride 5 mg tablet 5 mg PO QHS URINATION 04/04/15 12/15/24 History tamsulosin 0.4 mg capsule 0.4 mg PO QHS URINATION 04/04/15 12/15/24 History doxazosin 4 mg tablet,extended 4 mg PO QHS HEART 01/23/17 12/15/24 History release 24 hr (Cardura XL) cholecalciferol (vitamin D3) 25 25 mcg PO DAILY SUPPLEMENT 12/17/21 12/15/24 History mcg (1,000 unit) capsule (Vitamin D3) gabapentin 100 mg capsule 200 mg PO QHS PAIN 12/17/21 12/15/24 History losartan 50 mg tablet 50 mg PO DAILY BP 12/17/21 12/16/24 History multivitamin 1 tab PO DAILY SUPPLEMENT 12/17/21 12/16/24 History tramadol 50 mg tablet 50 mg PO 4X/DAY PRN pain 12/08/24 12/15/24 History ibuprofen 600 mg tablet 600 mg PO Q6H PRN pain #20 tabs 12/14/24 12/16/24 Rx acetaminophen 500 mg capsule 1,000 mg PO Q4H PRN pain 12/16/24 12/16/24 History ciprofloxacin HCl 500 mg tablet 500 mg PO BID 10 days #20 tabs 12/16/24 Unknown Rx (Cipro) omeprazole 20 mg capsule,delayed 40 mg PO DAILY 12/16/24 12/16/24 History release venlafaxine 150 mg 150 mg PO DAILY 12/16/24 12/15/24 History capsule,extended release 24 hr Allergy/AdvReac Type Severity Reaction Status Date / Time No Known Allergies Allergy Verified 12/16/24 07:59 Surgical History S/P umbilical hernia repair, follow-up exam Hx of bilateral cataract extraction Hx of hernia repair Hx of appendectomy History of carpal tunnel release of both wrists Hx of repair of right rotator cuff Hx of repair of left rotator cuff Hx of bilateral hip replacements Social History household members: spouse Smoking Status: Never smoker ROS ROS ED ROS Narrative Fever and chills. Constitutional Constitutional ED: Reports chills and fever(s) Eyes Eyes: Denies blurry vision ENT ENT ED: Denies ear pain Cardiovascular Cardiovascular: Denies chest pain Respiratory/Chest Respiratory/Chest: Denies cough or dyspnea Gastrointestinal Gastrointestinal: Denies abdominal pain Genitourinary Genitourinary ED: Reports dysuria; Denies hematuria Musculoskeletal Musculoskeletal: Denies arthralgias or back pain Integumentary Denies abscess Neurologic Neurologic: Denies headache(s) Psychiatric Psychiatric: Denies anxiety Endocrine Endocrinology: Denies cold intolerance Hematologic/Lymphatic Hematologic/Lymphatic: Reports none Allergic/Immunologic Allergic/Immunologic ED: Denies mouth swelling, tongue swelling or urticaria EXAM Physical Exam Narrative Exam Narrative: 79-year-old male vital signs stable he does have a fever of 101.1. Pulse ox is 96% on room air no hypoxia. H EENT exam pupils round react light. Moist mucous membranes. Neck nontender no lymphadenopathy. Lungs clear to auscultation bilaterally. Heart regular rhythm no murmur. Rate about 80. Chest wall ribs nontender. Abdomen soft nontender. Nondistended normal bowel sounds no peritoneal signs. Back nontender. No CVA tenderness. Moving all 4 extremities. Nontender no edema. Neurologically he is awake alert. Answering questions following commands. at bedside. Skin unremarkable. No rashes. No cellulitis. Const Vital Signs: 12/16/24 07:58 12/16/24 08:12 12/16/24 09:00 Temperature 101.1 F H 101.1 F H 101.3 F H Temperature Source Oral Temporal Temporal Pulse Rate 78 74 78 Respiratory Rate 18 15 18 Blood Pressure 158/66 H 145/78 H 145/72 H Blood Pressure Mean 96 100 96 Pulse Ox 96 98 98 Oxygen Delivery Method Room Air Room Air Room Air Positive well nourished and well developed; Negative for cachectic, contractures or unkempt General Appearance ED: well developed and NAD; Negative for unkempt, cachectic, contractures, cyanotic, diaphoretic or pallor Nutritional Appearance: Negative for cachectic HEENT Negative for trauma or tenderness Eyes PERRL and EOMs intact bilaterally General Eye ED: Negative for pale conjunctiva or scleral icterus Neck no lymphadenopathy, supple and no JVD General: Negative for tenderness Chest Wall inspection of chest normal and palpation of chest normal Resp normal respiratory effort and clear to auscultation bilaterally Effort and Inspection: Negative for retractions Auscultation: Negative for rales, rhonchi, wheezes or diminished lung sounds Cardio regular rate, regular rhythm, S1 normal heart sound, S2 normal heart sound and no murmurs GI normal to inspection, nondistended, normoactive bowel sounds, non-tender, non-distended and no masses Inspection: Negative for abdominal distention Auscultation: normoactive bowel sounds Palpation: soft; Negative for tender, guarding or rebound tenderness present Back/Spine no CVA tenderness General Back: Negative for CVA tenderness Cervical Spine: Negative for cervical spine tenderness Thoracic Spine / Upper Back: Negative for thoracic spinal tenderness or paraspinal muscle tenderness Lumbar Spine / Lower Back: Negative for lumbar spinal tenderness Extremity normal to inspection General Extremety ED: Negative for edema or tenderness General Extremity: Negative for edema Neuro oriented x3 and CN's II-XII intact bilaterally Sensorium / Orientation: alert; Negative for orientation impaired, lethargic or stuporous Motor Exam: strength 5/5 throughout; Negative for general weakness or strength abnormal Psych mental status grossly normal Appearance: Negative for unkempt Skin no rashes or lesions noted and no wounds General Skin Exam: Negative for jaundice or pallor Lesions: No lesion noted Rashes: No rashes noted Trauma: Negative for abrasion Wounds: Negative for wounds noted MDM MDM MDM Narrative Medical decision making narrative: 79-year-old male with a fever of 101 recent procedure for kidney stone with stent. Concern for UTI. Screening labs will be obtained. He already took Tylenol and ibuprofen at home. If his fever continues I will give him additional Tylenol. He did not need anything currently for pain. I do not think he needs any current imaging. Patient be given IV Rocephin for suspected urinary tract infection. Repeat exam patient is doing well around 9:45 AM. I gone over the lab test with both he and his . He has a UTI. He has been given IV Rocephin. I will speak to Dr. Guidry about a plan. The patient called looks well and his labs are benign and both he and his are comfortable being discharged home he will be discharged on Cipro 500 twice daily for 10 days. I discussed this with Dr. Minh Guidry. History & Record Review Discussion w/independent historian: Patient Additional record(s) reviewed:: Prior inpatient record, Prior outpatient record, Prior ED visit and Prior labs Lab Data Attestation: I reviewed the patient's lab results. Lab results narrative: CBC shows a white count 11.3. H&H 13.4 and 40. Platelets 152. KUB shows appropriate left stent placement. Chemistries show sodium 137. Gap 11. Normal BUN of 15 creatinine 0.9. Glucose 164. Lactic acid is normal at 2.0. UA shows 250 occult blood. Positive nitrites. Current other white cells Other red cells. 1+ bacteria. Urine culture sent. Labs: Laboratory Results - last 24 hr 12/16/24 12/16/24 08:00 08:28 WBC 11.3 H RBC 4.39 L Hgb 13.4 Hct 40.1 MCV 91.3 MCH 30.5 MCHC 33.4 RDW Std Deviation 41.6 RDW Coeff of Renato 12.6 Plt Count 152 MPV 9.8 Immature Gran % (Auto) 0.300 Neut % (Auto) 85.2 H Lymph % (Auto) 5.8 L [place] % (Auto) 4.4 Eos % (Auto) 3.9 Baso % (Auto) 0.4 Absolute Neuts (auto) 9.7 H Absolute Lymphs (auto) 0.66 L Nucleated RBC % 0 Sodium 137 Potassium 4.4 Chloride 102 Carbon Dioxide 24.3 Anion Gap 11 BUN 15 Creatinine 0.99 Estim Creat Clear Calc 72.22 Est GFR (MDRD) Non-Af 77 BUN/Creatinine Ratio 15.3 Glucose 164 H Lactic Acid 2.0 Calcium 9.1 Urine Color [place]ela Urine Clarity Turbid Urine pH 7.0 Ur Specific [place] 1.010 Urine Protein 500 H Urine Glucose (UA) Normal Urine Ketones Negative Urine Occult Blood 250 H Urine Nitrite Positive H Urine Bilirubin Negative Urine Urobilinogen Normal Ur Leukocyte Esterase 500 H Urine RBC > 100 SEEN Urine WBC >100 SEEN Ur Squamous Epith Cells 0-5 SEEN Urine Bacteria 1+ Urine Mucus 0 SEEN Radiography Diagnostic Testing: Clinical Impression(s) from Imaging Studies KUB X-Ray 12/16/24 09:02 IMPRESSION: Left renal calculi, largest measuring up to 9 mm with indwelling double-J ureteral stent. Reading [facility] KUB, 2 films, single view, interpreted by myself shows left ureteral stent in good position. Otherwise chronic changes. Increased stool consistent with constipation. Bilateral prior hip prostheses. No acute process otherwise. Discharge Plan Triage Chief Complaint: Flank Pain ED Provider: Steven Donald Dx/Rx/DC Orders Clinical Impression: Urinary tract infection, History of kidney stones, History of ureter stent Instructions: UTIs Prescriptions: New ciprofloxacin HCl [Cipro] 500 mg tablet 500 mg PO BID 10 Days Qty: 20 0RF No Action atorvastatin 40 MG tablet 40 mg PO QHS aspirin 81 MG tablet 81 mg PO QHS Patient Comments: [facility] tamsulosin 0.4 MG capsule 0.4 mg PO QHS finasteride 5 MG tablet 5 mg PO QHS Patient Comments: PROSTATE Cardura XL 4 MG tablet extended release 24hr 4 mg PO QHS multivitamin Tablet 1 tab PO DAILY losartan 50 mg tablet 50 mg PO DAILY gabapentin 100 mg capsule 200 mg PO QHS cholecalciferol (vitamin D3) [Vitamin D3] 25 mcg (1,000 unit) Capsule 25 mcg PO DAILY venlafaxine 150 mg capsule,extended release 24hr 150 mg PO DAILY Patient Comments: PT TAKES AT BEDTIME acetaminophen 500 mg capsule 1,000 mg PO Q4H PRN (Reason: pain) omeprazole 20 mg capsule,delayed release(DR/EC) 40 mg PO DAILY tramadol 50 mg tablet 50 mg PO 4X/DAY PRN (Reason: pain) ibuprofen 600 mg tablet 600 mg PO Q6H PRN (Reason: pain) Qty: 20 0RF Primary Care Provider: Abe Payne Referrals: Dennis Guidry MD [Med Staff - Active Staff] - 3-5 Days Abe Payne MD [Primary Care Provider] - Activity Restrictions/Additional Instructions: Plenty of fluids and rest. Tylenol for fever. The antibiotics Cipro 1 pill twice a day till gone. Call and follow-up with your urologist Dr. Minh Guidry. Return if feeling worse. Print Language: Malaysian Disposition Disposition: Home, Self Care
--- NOTE | 2024-12-16 08:17 | ED.RN ---
this RN recieved a verbal order by dr. Donald to hold Tylenol d/t pt states he took Tylenol before coming into ED.
[2024-12-16] MEDS: Ceftriaxone 1 GM/50 ML BAG IV (08:24)
[2024-12-16 08:30] LABS: Absolute Lymphocyte Count 0.66 X10^3/uL (0.83-4.51); Absolute Neutrophil Count 9.7 X10^3/uL (2.0-7.7); Basophil# 0.04 X10^3/uL; Basophil% 0.4 % (0-1); Eosinophil# 0.44 X10^3/uL; Eosinophils% 3.9 % (0-5); Hematocrit 40.1 % (40-54); Hemoglobin 13.4 g/dL (13.0-16.5); Lymphocyte # 0.66 X10^3/ul (0.83-4.51); Lymphocyte % 5.8 % (19-41); Mean Corp Hgb Conc 33.4 g/dL (32-36); Mean Corpuscular Hgb 30.5 pg (27.0-32.0); Mean Corpuscular Volume 91.3 fL (80-94); Mean Platelet Vol. 9.8 fl (6.2-12.0); Monocyte% 4.4 % (0-10); NRBC Flagged by Analyzer 0 % (0-5); Neutrophil # 9.65 X10^3/uL (2.7-7.7); Neutrophil % 85.2 % (47-70); Platelet Count 152 K/mm3 (150-450); RBC Distribution Width CV 12.6 % (11.6-14.6); RBC Distribution Width SD 41.6 fl (35.1-43.9); Red Blood Count 4.39 M/mm3 (4.6-6.2); White Blood Count 11.3 K/mm3 (4.4-11.0)
[2024-12-16 08:33] LABS: Mucous, Urine 0 SEEN /hpf (<or=2+)
[2024-12-16 09:00] VITALS: BP 145/72; PULSE 78; RESP 18; TEMP 38.5; O2SAT 98
--- NOTE | 2024-12-16 09:02 | RAD_ITS ---
EXAM: XR Abdomen, 1 View CLINICAL INDICATION: CHECK URETERAL STENT PLACEMENT TECHNIQUE: Frontal supine view of the abdomen/pelvis. COMPARISON: No relevant prior studies available. FINDINGS: GASTROINTESTINAL TRACT: Unremarkable. No dilation. ORGANS: Left renal calculi, largest measuring up to 9 mm with indwelling double-J ureteral stent. BONES/JOINTS: Unremarkable. No acute fracture. RAD/Abdomen Single View IMPRESSION: Left renal calculi, largest measuring up to 9 mm with indwelling double-J urete ral stent. Reading Location: [facility]
[2024-12-16 09:09] LABS: Color, Urine Amber (Yellow); Glucose, Dipstick Normal (Normal); Ketone-Dipstick Negative (Negative); Leukocyte Esterase-Dipstick 500 /ul (Negative); Nitrite-Dipstick Positive (Negative); Occult Blood-Urine 250 /ul (Negative); Protein-Dipstick 500 mg/dl (Negative); Urine Bilirubin Dipstick Negative (Negative); Urine Clarity Turbid (Clear); Urine Urobilinogen Normal (Normal)
[2024-12-16 09:10] LABS: Anion Gap 11 (5-15); BUN 15 mg/dL (4-19); BUN/Creat Ratio 15.3 RATIO (10-20); Calcium,Total 9.1 mg/dL (7.6-11.0); Carbon Dioxide 24.3 mmol/L (21.0-32.0); Chloride 102 mmol/L (98-108); Creatinine, Serum 0.99 mg/dL (0.70-1.20); EST Glomerular Filtration Rate 77 (>60); Estimated Creatinine Clearance 72.22 ml/min (50-250); Glucose 164 mg/dL (70-99); Potassium 4.4 mmol/L (3.3-5.1); Sodium Level 137 mmol/L (133-145)
[2024-12-16 09:30] LABS: Red Blood Cells-Urine > 100 SEEN /hpf (0-5); White Blood Cells >100 SEEN /hpf (0-5)
[2024-12-16 09:31] LABS: Bacteria 1+ /hpf (None Seen); Squamous Epithelial Cells - UA 0-5 SEEN /hpf (0-5)
[2024-12-16] MEDS: Acetaminophen 500 MG Tablet 1000 MG PO (09:31)
[2024-12-16] MEDS: Ondansetron 4 MG/2 ML Vial IV (09:55)
[2024-12-16] MEDS: Morphine 4 MG/ML Syringe IV (09:55)
[2024-12-16 09:58] VITALS: BP 128/73; PULSE 62; RESP 16; O2SAT 95
[2024-12-16 10:03] VITALS: BP 128/73; PULSE 62; RESP 18; TEMP 36.5; O2SAT 64
[2024-12-16 12:19] LABS: Reflex Lactate? Y
== END 2024-12-16 10:25 | disposition home or self-care (01) ==
PROVIDERS: Emergency Provider Emergency Medicine; PCP Family Medicine; Visit Provider Emergency Medicine
DX: N39.0 Urinary tract infection, site not specified (principal); I25.10 Atherosclerotic heart disease of native coronary artery without angina pectoris; I10 Essential (primary) hypertension; E78.00 Pure hypercholesterolemia, unspecified; R10.9 Unspecified abdominal pain; Z79.82 Long term (current) use of aspirin; Z79.899 Other long term (current) drug therapy; N40.0 Benign prostatic hyperplasia without lower urinary tract symptoms; K21.9 Gastro-esophageal reflux disease without esophagitis; Z98.41 Cataract extraction status, right eye; Z98.42 Cataract extraction status, left eye; Z90.49 Acquired absence of other specified parts of digestive tract; Z96.643 Presence of artificial hip joint, bilateral; Z87.442 Personal history of urinary calculi; Z96.0 Presence of urogenital implants
CPT/HCPCS: 74018; 80048; 81001; 83605; 85025; 87077; 87086; 87088; 87186; 96365; 96375; 99282; A4216; J2405

== ENCOUNTER 2024-12-25 10:02 | Emergency (ER) | payer MEDICARE, OTHER, SELFPAY ==
[2024-12-25 10:04] VITALS: BP 143/59; PULSE 72; RESP 18; TEMP 38.4; O2SAT 95; BMI 32.5
[2024-12-25 10:17] VITALS: BP 124/77; PULSE 72; RESP 20; TEMP 38.6; O2SAT 98
--- NOTE | 2024-12-25 10:56 | EX.ED.DYSGE1 ---
HPI History of Present Illness Chief Complaint: Weakness Detail of Chief Complaint: Fever and generalized weakness Informant: patient and family Narrative Narrative: Patient presents to the emergency department complaint of fever and generalized weakness. Patient states that he had a ureteral stent placed for a kidney stone 2 weeks ago. He had been on Cipro but caused him to have lesions in his mouth so he was taken off the Cipro and not started any new antibiotic. Had been doing relatively well in his schedule to have his stent out in 2 days. This morning woke up and had a fever. Feels weak. Has minimal cough. Denies sick contacts. He has mild dysuria. Denies hematuria. [facility] Medical History Kidney stone on left side Loss of hearing Prostate disease Low iron Restless legs Hypertension History of MRSA infection Wears glasses Anxiety Arthritis High cholesterol Gastric reflux Non-smoker CPAP (continuous positive airway pressure) dependence History of pain when walking History of stress test History of echocardiogram Cardiology follow-up encounter BPH (benign prostatic hyperplasia) Dyslipidemia Nephrolithiasis Coronary artery disease Home Medications ?Medication ?Instructions ?Recorded ?Last Taken ?Type aspirin 81 mg tablet,delayed 81 mg PO QHS BLOOD THINNER 04/04/15 12/07/24 History release Held on 12/14/24. Instructions: Resume on 12/28/24. atorvastatin 40 mg tablet 40 mg PO QHS CHOLESTEROL 04/04/15 12/15/24 History finasteride 5 mg tablet 5 mg PO QHS URINATION 04/04/15 12/15/24 History tamsulosin 0.4 mg capsule 0.4 mg PO QHS URINATION 04/04/15 12/15/24 History doxazosin 4 mg tablet,extended 4 mg PO QHS HEART 01/23/17 12/15/24 History release 24 hr (Cardura XL) cholecalciferol (vitamin D3) 25 25 mcg PO DAILY SUPPLEMENT 12/17/21 12/15/24 History mcg (1,000 unit) capsule (Vitamin D3) gabapentin 100 mg capsule 200 mg PO QHS PAIN 12/17/21 12/15/24 History losartan 50 mg tablet 50 mg PO DAILY BP 12/17/21 12/16/24 History multivitamin 1 tab PO DAILY SUPPLEMENT 12/17/21 12/16/24 History tramadol 50 mg tablet 50 mg PO 4X/DAY PRN pain 12/08/24 12/15/24 History ibuprofen 600 mg tablet 600 mg PO Q6H PRN pain #20 tabs 12/14/24 12/16/24 Rx acetaminophen 500 mg capsule 1,000 mg PO Q4H PRN pain 12/16/24 12/16/24 History ciprofloxacin HCl 500 mg tablet 500 mg PO BID 10 days #20 tabs 12/16/24 Unknown Rx (Cipro) omeprazole 20 mg capsule,delayed 40 mg PO DAILY 12/16/24 12/16/24 History release venlafaxine 150 mg 150 mg PO DAILY 12/16/24 12/15/24 History capsule,extended release 24 hr cephalexin 500 mg capsule 500 mg PO Q6 #20 CAPSULES 12/25/24 Unknown Rx Allergy/AdvReac Type Severity Reaction Status Date / Time No Known Allergies Allergy Verified 12/16/24 07:59 Surgical History S/P umbilical hernia repair, follow-up exam Hx of bilateral cataract extraction Hx of hernia repair Hx of appendectomy History of carpal tunnel release of both wrists Hx of repair of right rotator cuff Hx of repair of left rotator cuff Hx of bilateral hip replacements Social History household members: spouse Smoking Status: Never smoker ROS ROS ED Review of Systems ROS Unobtainable: other Constitutional Constitutional ED: Reports fever(s) and lethargy; Denies chills, sweats or weight loss Eyes Eyes: Denies blurry vision, change in vision or diplopia ENT ENT ED: Denies rhinorrhea or sore throat Cardiovascular Cardiovascular: Denies chest pain, orthopnea or racing heartbeat Respiratory/Chest Respiratory/Chest: Denies cough, dyspnea, dyspnea on exertion, orthopnea or sputum Gastrointestinal Gastrointestinal: Denies abdominal pain, diarrhea, nausea or vomiting Genitourinary Genitourinary ED: Reports dysuria; Denies hematuria or urinary frequency Musculoskeletal Musculoskeletal: Denies arthralgias, back pain, myalgias or neck pain Integumentary Denies abscess, Abrasions or rash Neurologic Neurologic: Reports weakness; Denies headache(s) Psychiatric Psychiatric: Denies anxiety, depression or suicidal thoughts Endocrine Endocrinology: Denies polydipsia, polyphagia or polyuria Hematologic/Lymphatic Hematologic/Lymphatic: Denies easy bleeding, easy bruising or lymphadenopathy Allergic/Immunologic Allergic/Immunologic ED: Denies mouth swelling, tongue swelling or urticaria EXAM Physical Exam Const Vital Signs: 12/25/24 10:04 12/25/24 10:11 12/25/24 10:17 Temperature 101.1 F H 101.4 F H Temperature Source Oral Oral Pulse Rate 72 72 Respiratory Rate 18 20 H Respiratory Effort Normal Non-Labored Respiratory Pattern Normal Blood Pressure 143/59 H 124/77 H Blood Pressure Mean 87 92 Pulse Ox 95 98 Oxygen Delivery Method Room Air Room Air 12/25/24 11:17 12/25/24 11:17 12/25/24 12:00 Temperature 100.2 F H 101.0 F H Temperature Source Oral Oral Pulse Rate 67 69 Respiratory Rate 29 H 24 H Respiratory Effort Respiratory Pattern Blood Pressure 143/71 H 139/65 H Blood Pressure Mean 95 89 Pulse Ox 99 95 Oxygen Delivery Method Room Air Blow-by Room Air Positive well nourished and well developed General Appearance ED: well developed and NAD HEENT Reports TM's clear and moist mucous membranes normocephalic and atraumatic; Negative for trauma or tenderness Tympanic Membrane ED: Yes TM's clear Eyes PERRL and EOMs intact bilaterally General Eye ED: Negative for pale conjunctiva or scleral icterus Neck no lymphadenopathy, supple and no JVD General: Negative for tenderness Chest Wall inspection of chest normal and palpation of chest normal Chest: Negative for tenderness Resp normal respiratory effort and clear to auscultation bilaterally Effort and Inspection: Negative for respiratory distress or pain with movement Auscultation: Negative for rhonchi, wheezes or diminished lung sounds Cardio regular rate, regular rhythm, S1 normal heart sound, S2 normal heart sound and no murmurs Peripheral Pulses: pulses 2+ throughout GI normal to inspection, nondistended, normoactive bowel sounds, soft to palpation, non-tender, non-distended and no masses Back/Spine no CVA tenderness and no thoracic nor lumbar tenderness Extremity normal to inspection General Extremety ED: Negative for edema General Extremity: Negative for edema Neuro oriented x3, CN's II-XII intact bilaterally, no sensory deficits noted and gait normal Sensorium / Orientation: awake, alert, oriented to person, oriented to place and oriented to time Motor Exam: strength 5/5 throughout and strength abnormal Psych mental status grossly normal Skin no rashes or lesions noted and no wounds MDM MDM MDM Narrative Medical decision making narrative: Patient presents with fever and history of a left ureteral stent. Clinically looks well. Has had minimal cough. No other complaints. He denies any abdominal pain. IV line established. Blood cultures ordered. CBC with differential obtained showed a white count of 14.7 with hemoglobin 12.3 and platelet count of 225. Lactate less than 1. LFTs were normal. Urinalysis positive for UTI I with positive nitrates and 100 excite esterase as well as 10-25 WBCs with no bacteria seen. Urine culture sent. Patient was started on Rocephin 1 g IV. COVID flu and RSV testing was negative. 1 view chest x-ray was unremarkable. I did discuss case with patient's urologist Dr. Stapleton who recommended outpatient therapy with Keflex and he will see patient in the office in 2 days to remove his stent as he did not feel the stent needed to come out emergently. Patient and family comfortable with plan. They are advised to return if vomiting, back or abdomen Pain, dizziness, or condition should worsen anyway. At this time patient is not septic. Lab Data Attestation: I reviewed the patient's lab results. Labs: Laboratory Results - last 24 hr 12/25/24 12/25/24 12/25/24 10:05 10:40 11:53 WBC 14.7 H RBC 4.07 L Hgb 12.3 L Hct 36.8 L MCV 90.4 MCH 30.2 MCHC 33.4 RDW Std Deviation 40.3 RDW Coeff of Renato 12.2 Plt Count 225 MPV 9.6 Immature Gran % (Auto) 0.700 Neut % (Auto) 91.3 H Lymph % (Auto) 4.2 L [place] % (Auto) 3.0 Eos % (Auto) 0.3 Baso % (Auto) 0.5 Absolute Neuts (auto) 13.5 H Absolute Lymphs (auto) 0.62 L Nucleated RBC % 0 Sodium 136 Potassium 4.1 Chloride 102 Carbon Dioxide 21.9 Anion Gap 12 BUN 22 H Creatinine 1.03 Estim Creat Clear Calc 68.77 Est GFR (MDRD) Non-Af 73 BUN/Creatinine Ratio 21.1 H Glucose 144 H Lactic Acid < 1.0 Calcium 9.4 Total Bilirubin 0.42 AST 26 ALT 22 Alkaline Phosphatase 87 Total Protein 7.5 Albumin 4.2 Globulin 3.4 Albumin/Globulin Ratio 1.2 Urine Color Yellow Urine Clarity Sl. Cloudy Urine pH 7.0 Ur Specific [place] 1.005 Urine Protein TNP Urine Glucose (UA) Normal Urine Ketones Negative Urine Occult Blood 250 H Urine Nitrite Positive H Urine Bilirubin Negative Urine Urobilinogen Normal Ur Leukocyte Esterase 100 H Urine RBC 10-25 SEEN Urine WBC 10-25 SEEN Ur Squamous Epith Cells 0 SEEN Urine Bacteria 0 SEEN Urine Mucus 0 SEEN Radiography Diagnostic Testing: Clinical Impression(s) from Imaging Studies Chest X-Ray 12/25/24 11:15 IMPRESSION: No Acute Findings. Reading Location: [facility] Discharge Plan Triage Chief Complaint: Weakness ED Provider: Zain Merlos Dx/Rx/DC Orders Clinical Impression: Acute UTI Instructions: ED Bladder Infection, Male (Adult) Prescriptions: New cephalexin 500 mg capsule 500 mg PO Q6 Qty: 20 0RF No Action atorvastatin 40 MG tablet 40 mg PO QHS aspirin 81 MG tablet 81 mg PO QHS Patient Comments: [facility] tamsulosin 0.4 MG capsule 0.4 mg PO QHS finasteride 5 MG tablet 5 mg PO QHS Patient Comments: PROSTATE Cardura XL 4 MG tablet extended release 24hr 4 mg PO QHS multivitamin Tablet 1 tab PO DAILY losartan 50 mg tablet 50 mg PO DAILY gabapentin 100 mg capsule 200 mg PO QHS cholecalciferol (vitamin D3) [Vitamin D3] 25 mcg (1,000 unit) Capsule 25 mcg PO DAILY venlafaxine 150 mg capsule,extended release 24hr 150 mg PO DAILY Patient Comments: PT TAKES AT BEDTIME acetaminophen 500 mg capsule 1,000 mg PO Q4H PRN (Reason: pain) omeprazole 20 mg capsule,delayed release(DR/EC) 40 mg PO DAILY ciprofloxacin HCl [Cipro] 500 mg tablet 500 mg PO BID 10 Days Qty: 20 0RF tramadol 50 mg tablet 50 mg PO 4X/DAY PRN (Reason: pain) ibuprofen 600 mg tablet 600 mg PO Q6H PRN (Reason: pain) Qty: 20 0RF Primary Care Provider: Abe Payne Referrals: Dennis Guidry MD [Med Staff - Active Staff] - 2 Days Abe Payne MD [Primary Care Provider] - Print Language: Thai Disposition Disposition: Home, Self Care
[2024-12-25 11:12] LABS: Absolute Lymphocyte Count 0.62 X10^3/uL (0.83-4.51); Absolute Neutrophil Count 13.5 X10^3/uL (2.0-7.7); Basophil# 0.07 X10^3/uL; Basophil% 0.5 % (0-1); Eosinophil# 0.04 X10^3/uL; Eosinophils% 0.3 % (0-5); Hematocrit 36.8 % (40-54); Hemoglobin 12.3 g/dL (13.0-16.5); Lymphocyte # 0.62 X10^3/ul (0.83-4.51); Lymphocyte % 4.2 % (19-41); Mean Corp Hgb Conc 33.4 g/dL (32-36); Mean Corpuscular Hgb 30.2 pg (27.0-32.0); Mean Corpuscular Volume 90.4 fL (80-94); Mean Platelet Vol. 9.6 fl (6.2-12.0); Monocyte# 0.44 X10^3/uL; NRBC Flagged by Analyzer 0 % (0-5); Neutrophil # 13.45 X10^3/uL (2.7-7.7); Neutrophil % 91.3 % (47-70); Platelet Count 225 K/mm3 (150-450); RBC Distribution Width CV 12.2 % (11.6-14.6); RBC Distribution Width SD 40.3 fl (35.1-43.9); Red Blood Count 4.07 M/mm3 (4.6-6.2); White Blood Count 14.7 K/mm3 (4.4-11.0)
[2024-12-25] MEDS: Acetaminophen 500 MG Tablet 1000 MG PO (11:13)
[2024-12-25] MEDS: 0.9% Normal Saline (1000mL) 1,000 ML 150 ML IV (11:13)
--- NOTE | 2024-12-25 11:15 | RAD_ITS ---
PROCEDURE: CHEST 1 VIEW (PORTABLE) 12/25/2024 REASON FOR EXAM: FEVER TECHNIQUE: Frontal view of the chest. COMPARISON: Chest radiograph 06/22/2019. FINDINGS: Hardware: None. Heart: The heart size is normal. Retrocardiac lucency, compatible with moderate-sized hiatal hernia seen on same-day CT abdomen pelvis. Lungs: Bibasilar atelectasis. No pleural effusion or pneumothorax. Bones: Degenerative changes are identified within the thoracic spine. RAD/Chest 1 View (Portable) IMPRESSION: No Acute Findings. Reading Location: [id number]
[2024-12-25 11:17] VITALS: BP 143/71; PULSE 67; RESP 29; TEMP 37.9; O2SAT 99
[2024-12-25 11:50] LABS: ALB/GLOB Ratio 1.2 RATIO (0.9-2.4); AST(SGOT) 26 U/L (<=37); Alanine Aminotransfer ALT/SGPT 22 U/L (<=46); Albumin, Serum 4.2 g/dL (3.4-4.8); Alkaline Phosphatase 87 U/L (40-129); Anion Gap 12 (5-15); BUN 22 mg/dL (4-19); BUN/Creat Ratio 21.1 RATIO (10-20); Calcium,Total 9.4 mg/dL (7.6-11.0); Carbon Dioxide 21.9 mmol/L (21.0-32.0); Chloride 102 mmol/L (98-108); Creatinine, Serum 1.03 mg/dL (0.70-1.20); EST Glomerular Filtration Rate 73 (>60); Estimated Creatinine Clearance 68.77 ml/min (50-250); Globulin 3.4 g/dL (2.2-4.2); Glucose 144 mg/dL (70-99); Potassium 4.1 mmol/L (3.3-5.1); Protein, Total 7.5 g/dL (5.9-8.4); Sodium Level 136 mmol/L (133-145); Total Bilirubin 0.42 mg/dL (0.00-1.30)
[2024-12-25 11:55] LABS: Bacteria 0 SEEN /hpf (None Seen); Mucous, Urine 0 SEEN /hpf (<or=2+); Squamous Epithelial Cells - UA 0 SEEN /hpf (0-5)
[2024-12-25 11:56] LABS: Lactic Acid < 1.0 mmol/L (0.0-2.0)
[2024-12-25 11:57] LABS: Color, Urine Yellow (Yellow); Glucose, Dipstick Normal (Normal); Ketone-Dipstick Negative (Negative); Leukocyte Esterase-Dipstick 100 /ul (Negative); Nitrite-Dipstick Positive (Negative); Occult Blood-Urine 250 /ul (Negative); Specific Gravity, Urine 1.005 (1.002-1.030); Urine Bilirubin Dipstick Negative (Negative); Urine Clarity Sl. Cloudy (Clear); Urine Urobilinogen Normal (Normal)
[2024-12-25 12:00] VITALS: BP 139/65; PULSE 69; RESP 24; TEMP 38.3; O2SAT 95
[2024-12-25 12:08] LABS: Red Blood Cells-Urine 10-25 SEEN /hpf (0-5); White Blood Cells 10-25 SEEN /hpf (0-5)
[2024-12-25] MEDS: Ceftriaxone 1 GM/50 ML BAG IV (12:49)
[2024-12-25 13:00] VITALS: BP 131/59; PULSE 74; RESP 25
[2024-12-25 13:26] VITALS: BP 131/59; PULSE 74; RESP 25; TEMP 38.3; O2SAT 95
== END 2024-12-25 14:20 | disposition home or self-care (01) ==
PROVIDERS: Emergency Provider Emergency Medicine; PCP Family Medicine; Visit Provider Emergency Medicine
DX: N39.0 Urinary tract infection, site not specified (principal); I10 Essential (primary) hypertension; E78.00 Pure hypercholesterolemia, unspecified; Z96.0 Presence of urogenital implants; Z79.82 Long term (current) use of aspirin; Z79.899 Other long term (current) drug therapy
CPT/HCPCS: 71045; 80053; 81001; 83605; 85025; 87040; 87086; 87631; A4216

== ENCOUNTER 2024-12-25 20:08 | Inpatient (IN) | payer MEDICARE, OTHER, SELFPAY ==
[2024-12-25 20:08] VITALS: BP 142/57; PULSE 81; RESP 18; TEMP 37.7; O2SAT 94
[2024-12-25 20:10] VITALS: BP 135/59; PULSE 72; RESP 38; TEMP 39.4; O2SAT 94
[2024-12-25] MEDS: 0.9% Normal Saline (1000mL) 1,000 ML 999 ML IV (20:37)
[2024-12-25] MEDS: Acetaminophen 500 MG Tablet 1000 MG PO (20:37)
--- NOTE | 2024-12-25 20:37 | EX.ED.DYSGE1 ---
HPI History of Present Illness Chief Complaint: Weakness Informant: patient, spouse/S.O. and family Onset/Context/Timing Onset: Today Timing: Continuous Current Severity: Moderate Maximum Severity: Moderate Narrative Narrative: 79-year-old male history of kidney stones recent left ureteral stent about 2 weeks ago. Seen in the emergency department earlier today. Diagnosed with UTI. The emergency physician spoke to the patient's urologist. Patient and family and urologist was comfortable the patient being discharged home on oral antibiotic. Family states once he is was home. He developed a higher fever and just generalized weakness to the point that he could not stand. No vomiting or diarrhea. Post procedure 2 weeks ago he was on Cipro. He started having reaction to that so they took him off of it. Prior similar symptoms: Yes Recent Illness/Hospitalization: No PFSH PFSH Medical History Kidney stone on left side Loss of hearing Prostate disease Low iron Restless legs Hypertension History of MRSA infection Wears glasses Anxiety Arthritis High cholesterol Gastric reflux Non-smoker CPAP (continuous positive airway pressure) dependence History of pain when walking History of stress test History of echocardiogram Cardiology follow-up encounter BPH (benign prostatic hyperplasia) Dyslipidemia Nephrolithiasis Coronary artery disease Home Medications ?Medication ?Instructions ?Recorded ?Last Taken ?Type aspirin 81 mg tablet,delayed 81 mg PO QHS BLOOD THINNER 04/04/15 12/07/24 History release atorvastatin 40 mg tablet 40 mg PO QHS CHOLESTEROL 04/04/15 12/15/24 History finasteride 5 mg tablet 5 mg PO QHS URINATION 04/04/15 12/15/24 History tamsulosin 0.4 mg capsule 0.4 mg PO QHS URINATION 04/04/15 12/15/24 History doxazosin 4 mg tablet,extended 4 mg PO QHS HEART 01/23/17 12/15/24 History release 24 hr (Cardura XL) cholecalciferol (vitamin D3) 25 25 mcg PO DAILY SUPPLEMENT 12/17/21 12/15/24 History mcg (1,000 unit) capsule (Vitamin D3) gabapentin 100 mg capsule 200 mg PO QHS PAIN 12/17/21 12/15/24 History losartan 50 mg tablet 50 mg PO DAILY BP 12/17/21 12/16/24 History multivitamin 1 tab PO DAILY SUPPLEMENT 12/17/21 12/16/24 History tramadol 50 mg tablet 50 mg PO 4X/DAY PRN pain 12/08/24 12/15/24 History ibuprofen 600 mg tablet 600 mg PO Q6H PRN pain #20 tabs 12/14/24 12/16/24 Rx acetaminophen 500 mg capsule 1,000 mg PO Q4H PRN pain 12/16/24 12/16/24 History omeprazole 20 mg capsule,delayed 40 mg PO DAILY 12/16/24 12/16/24 History release venlafaxine 150 mg 150 mg PO DAILY 12/16/24 12/15/24 History capsule,extended release 24 hr cephalexin 500 mg capsule 500 mg PO Q6 #20 CAPSULES 12/25/24 Unknown Rx Allergy/AdvReac Type Severity Reaction Status Date / Time No Known Allergies Allergy Verified 12/25/24 20:10 Surgical History S/P umbilical hernia repair, follow-up exam Hx of bilateral cataract extraction Hx of hernia repair Hx of appendectomy History of carpal tunnel release of both wrists Hx of repair of right rotator cuff Hx of repair of left rotator cuff Hx of bilateral hip replacements Social History household members: spouse Smoking Status: Never smoker ROS ROS ED Constitutional Constitutional ED: Reports fever(s) Eyes Eyes: Denies blurry vision ENT ENT ED: Denies ear pain Cardiovascular Cardiovascular: Denies chest pain Gastrointestinal Gastrointestinal: Denies abdominal pain, diarrhea, nausea or vomiting Genitourinary Genitourinary ED: Denies dysuria or hematuria Musculoskeletal Musculoskeletal: Denies arthralgias Integumentary Denies abscess Neurologic Neurologic: Reports weakness; Denies headache(s) Psychiatric Psychiatric: Denies anxiety Endocrine Endocrinology: Denies cold intolerance Hematologic/Lymphatic Hematologic/Lymphatic: Reports none Allergic/Immunologic Allergic/Immunologic ED: Denies mouth swelling, tongue swelling or urticaria EXAM Physical Exam Narrative Exam Narrative: 79-year-old male sitting upright in bed. Clinically does not feel well. Family at bedside. His initial triage temp was 99.8 I retook it it was 103. Blood pressure 135/59. Pulse ox 94% on room air no hypoxia. H EENT exam pupils round reactive light. Dry mucous membranes. Neck nontender no JVD. No meningismus. No lymphadenopathy. Lungs clear to auscultation bilaterally. Heart regular rhythm rate about 70 no murmur. Chest wall ribs nontender. Abdomen soft nontender. No peritoneal signs. Back nontender. No CVA tenderness. Moving all 4 extremities. 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 Normal dorsi plantarflexion. Neurologically is awake and alert. Answering questions following commands. Clinically looks dehydrated. Const Vital Signs: 12/25/24 20:08 12/25/24 20:10 12/25/24 20:25 Temperature 99.8 F H 103 F H Temperature Source Oral Oral Pulse Rate 81 72 Respiratory Rate 18 38 H Respiratory Effort Short of Breath Labored Respiratory Pattern Tachypnea Blood Pressure 142/57 H 135/59 H Blood Pressure Mean 85 84 Pulse Ox 94 94 Oxygen Delivery Method Room Air Room Air 12/25/24 21:10 12/25/24 21:23 Temperature 101.4 F H 101.4 F H Temperature Source Oral Pulse Rate 66 66 Respiratory Rate 29 H 26 H Respiratory Effort Respiratory Pattern Blood Pressure 138/61 H 138/91 H Blood Pressure Mean 86 106 Pulse Ox 95 93 Oxygen Delivery Method Room Air Positive well nourished and well developed; Negative for cachectic or contractures General Appearance ED: well developed and NAD; Negative for cachectic, contractures, cyanotic, diaphoretic or pallor Nutritional Appearance: Negative for cachectic HEENT Reports dry mucous membranes Negative for trauma Mouth ED: Yes dry mucous membranes Mouth: dry mucous membranes Eyes PERRL and EOMs intact bilaterally General Eye ED: Negative for pale conjunctiva or scleral icterus Neck no lymphadenopathy, supple and no JVD Chest Wall inspection of chest normal and palpation of chest normal Resp normal respiratory effort and clear to auscultation bilaterally Cardio regular rate, regular rhythm, S1 normal heart sound, S2 normal heart sound and no murmurs GI normal to inspection, nondistended, normoactive bowel sounds, non-tender, non-distended and no masses Palpation: soft; Negative for tender, guarding or rebound tenderness present Back/Spine no CVA tenderness General Back: Negative for CVA tenderness Cervical Spine: Negative for cervical spine tenderness Thoracic Spine / Upper Back: Negative for thoracic spinal tenderness or paraspinal muscle tenderness Lumbar Spine / Lower Back: Negative for lumbar spinal tenderness Extremity normal to inspection General Extremety ED: Negative for edema or tenderness General Extremity: Negative for edema Neuro oriented x3 and CN's II-XII intact bilaterally Sensorium / Orientation: alert; Negative for orientation impaired, lethargic or stuporous Motor Exam: general weakness Psych mental status grossly normal Attitude: No agitated Mood & Affect: Negative for anxious or tearful Skin no rashes or lesions noted and no wounds General Skin Exam: Negative for jaundice or pallor Lesions: No lesion noted Rashes: No rashes noted Trauma: Negative for abrasion Wounds: Negative for wounds noted MDM MDM MDM Narrative Medical decision making narrative: 79-year-old male diagnosed with UTI today. Has a known stent. He went home he was so weak he could not stand. He has developed a fever of 103. I reviewed his test from earlier today. His stents in good position. He does have a UTI. He will be given IV antibiotics which I think he was already once earlier today. I will repeat his CBC and chemistry. we treated the liter normal saline for dehydration and Tylenol for his fever. Chest x-ray done earlier today which was unremarkable. I spoke to Dr. Minh Guidry of urology. We discussed the patient's case he remembers the patient and remembers his visit from earlier today. He is comfortable admit the patient to his service. Repeat exam patient is doing well at 9:14 PM. He will be admitted for UTI, generalized weakness, fever. History & Record Review Discussion w/independent historian: Patient and Family Additional record(s) reviewed:: Prior inpatient record, Prior outpatient record, Prior ED visit and Prior labs Lab Data Attestation: I reviewed the patient's lab results. Lab results narrative: CBC shows white count of 17.8 previously was 14.7 earlier today. H&H 11.9 and 34. Platelets 192. Chemistry shows sodium 134. Gap 12. BUN and creatinine 25 and 1.1. Glucose 134. Labs: Laboratory Results - last 24 hr 12/25/24 20:34 WBC 17.8 H RBC 3.91 L Hgb 11.9 L Hct 34.8 L MCV 89.0 MCH 30.4 MCHC 34.2 RDW Std Deviation 40.9 RDW Coeff of Renato 12.6 Plt Count 192 MPV 9.1 Immature Gran % (Auto) 0.900 Neut % (Auto) 91.4 H Lymph % (Auto) 4.0 L [place] % (Auto) 3.4 Eos % (Auto) 0.0 Baso % (Auto) 0.3 Absolute Neuts (auto) 16.3 H Absolute Lymphs (auto) 0.72 L Nucleated RBC % 0 Sodium 134 Potassium 3.8 Chloride 103 Carbon Dioxide 19.5 L Anion Gap 12 BUN 25 H Creatinine 1.10 Estim Creat Clear Calc 64.52 Est GFR (MDRD) Non-Af 68 BUN/Creatinine Ratio 22.3 H Glucose 134 H Calcium 8.9 Discharge Plan Triage Chief Complaint: Weakness ED Provider: Steven Donald Dx/Rx/DC Orders Prescriptions: No Action atorvastatin 40 MG tablet 40 mg PO QHS aspirin 81 MG tablet 81 mg PO QHS Patient Comments: [facility] tamsulosin 0.4 MG capsule 0.4 mg PO QHS finasteride 5 MG tablet 5 mg PO QHS Patient Comments: PROSTATE Cardura XL 4 MG tablet extended release 24hr 4 mg PO QHS multivitamin Tablet 1 tab PO DAILY losartan 50 mg tablet 50 mg PO DAILY gabapentin 100 mg capsule 200 mg PO QHS cholecalciferol (vitamin D3) [Vitamin D3] 25 mcg (1,000 unit) Capsule 25 mcg PO DAILY venlafaxine 150 mg capsule,extended release 24hr 150 mg PO DAILY Patient Comments: PT TAKES AT BEDTIME acetaminophen 500 mg capsule 1,000 mg PO Q4H PRN (Reason: pain) omeprazole 20 mg capsule,delayed release(DR/EC) 40 mg PO DAILY tramadol 50 mg tablet 50 mg PO 4X/DAY PRN (Reason: pain) ibuprofen 600 mg tablet 600 mg PO Q6H PRN (Reason: pain) Qty: 20 0RF cephalexin 500 mg capsule 500 mg PO Q6 Qty: 20 0RF Primary Care Provider: Abe Payne Referrals: Abe Payne MD [Primary Care Provider] - Print Language: Stateless
[2024-12-25 20:42] VITALS: BMI 32.7
[2024-12-25 20:46] LABS: Absolute Lymphocyte Count 0.72 X10^3/uL (0.83-4.51); Absolute Neutrophil Count 16.3 X10^3/uL (2.0-7.7); Basophil# 0.05 X10^3/uL; Basophil% 0.3 % (0-1); Hematocrit 34.8 % (40-54); Hemoglobin 11.9 g/dL (13.0-16.5); Lymphocyte # 0.72 X10^3/ul (0.83-4.51); Mean Corp Hgb Conc 34.2 g/dL (32-36); Mean Corpuscular Hgb 30.4 pg (27.0-32.0); Mean Platelet Vol. 9.1 fl (6.2-12.0); Monocyte# 0.61 X10^3/uL; Monocyte% 3.4 % (0-10); NRBC Flagged by Analyzer 0 % (0-5); Neutrophil # 16.28 X10^3/uL (2.7-7.7); Neutrophil % 91.4 % (47-70); Platelet Count 192 K/mm3 (150-450); RBC Distribution Width CV 12.6 % (11.6-14.6); RBC Distribution Width SD 40.9 fl (35.1-43.9); Red Blood Count 3.91 M/mm3 (4.6-6.2); White Blood Count 17.8 K/mm3 (4.4-11.0)
[2024-12-25 21:10] VITALS: BP 138/61; PULSE 66; RESP 29; TEMP 38.6; O2SAT 95
[2024-12-25 21:23] VITALS: BP 138/91; PULSE 66; RESP 26; TEMP 38.6; O2SAT 93
[2024-12-25] MEDS: Ceftriaxone 1 GM/50 ML BAG IV (21:25)
--- NOTE | 2024-12-25 21:30 | PCM.HP.STD ---
[facility] - General General Date of Service: 12/25/24 Chief Complaint: Pyelonephritis HPI Narrative ANUPAMA MARSH, is a 79 M who presents to the hospital with continued fevers, fever 101, he presented to the emergency room about 24 hours ago with fever a low white blood count, urine cultures were sent, prior urine cultures grew pansensitive Pseudomonas infection he had multiple large stones in the kidneys these were treated with laser lithotripsy and stent placement and now comes back to the hospital with fever elevated white blood count suspicious for left pyelonephritis. He will be admitted for IV antibiotics will consult infectious disease, will continue with ceftriaxone. Family is wondering if the stent should be removed they are asking it to be removed I do not think at this point until his infection is completely cured that we should remove the stent so we will do this day by day and decide when the stent comes out but I do not think I should remove the stent until his infection is cured. I explained this to the family. [facility] Medical History Kidney stone on left side Loss of hearing Prostate disease Low iron Restless legs Hypertension History of MRSA infection Wears glasses Anxiety Arthritis High cholesterol Gastric reflux Non-smoker CPAP (continuous positive airway pressure) dependence History of pain when walking History of stress test History of echocardiogram Cardiology follow-up encounter BPH (benign prostatic hyperplasia) Dyslipidemia Nephrolithiasis Coronary artery disease Home Medications ?Medication ?Instructions ?Recorded ?Last Taken ?Type aspirin 81 mg tablet,delayed 81 mg PO QHS BLOOD THINNER 04/04/15 12/07/24 History release atorvastatin 40 mg tablet 40 mg PO QHS CHOLESTEROL 04/04/15 12/15/24 History finasteride 5 mg tablet 5 mg PO QHS URINATION 04/04/15 12/15/24 History tamsulosin 0.4 mg capsule 0.4 mg PO QHS URINATION 04/04/15 12/15/24 History doxazosin 4 mg tablet,extended 4 mg PO QHS HEART 01/23/17 12/15/24 History release 24 hr (Cardura XL) cholecalciferol (vitamin D3) 25 25 mcg PO DAILY SUPPLEMENT 12/17/21 12/15/24 History mcg (1,000 unit) capsule (Vitamin D3) gabapentin 100 mg capsule 200 mg PO QHS PAIN 12/17/21 12/15/24 History losartan 50 mg tablet 50 mg PO DAILY BP 12/17/21 12/16/24 History multivitamin 1 tab PO DAILY SUPPLEMENT 12/17/21 12/16/24 History tramadol 50 mg tablet 50 mg PO 4X/DAY PRN pain 12/08/24 12/15/24 History ibuprofen 600 mg tablet 600 mg PO Q6H PRN pain #20 tabs 12/14/24 12/16/24 Rx acetaminophen 500 mg capsule 1,000 mg PO Q4H PRN pain 12/16/24 12/16/24 History omeprazole 20 mg capsule,delayed 40 mg PO DAILY 12/16/24 12/16/24 History release venlafaxine 150 mg 150 mg PO DAILY 12/16/24 12/15/24 History capsule,extended release 24 hr cephalexin 500 mg capsule 500 mg PO Q6 #20 CAPSULES 12/25/24 Unknown Rx Allergy/AdvReac Type Severity Reaction Status Date / Time No Known Allergies Allergy Verified 12/25/24 20:10 Surgical History S/P umbilical hernia repair, follow-up exam Hx of bilateral cataract extraction Hx of hernia repair Hx of appendectomy History of carpal tunnel release of both wrists Hx of repair of right rotator cuff Hx of repair of left rotator cuff Hx of bilateral hip replacements Social History household members: spouse Smoking Status: Never smoker Vital Signs Vital Signs Vital Signs: 12/25/24 20:08 12/25/24 20:10 12/25/24 20:25 Temperature 99.8 F H 103 F H Temperature Source Oral Oral Pulse Rate 81 72 Respiratory Rate 18 38 H Respiratory Effort Short of Breath Labored Respiratory Pattern Tachypnea Blood Pressure 142/57 H 135/59 H Blood Pressure Mean 85 84 Pulse Ox 94 94 Oxygen Delivery Method Room Air Room Air 12/25/24 21:10 12/25/24 21:23 Temperature 101.4 F H 101.4 F H Temperature Source Oral Pulse Rate 66 66 Respiratory Rate 29 H 26 H Respiratory Effort Respiratory Pattern Blood Pressure 138/61 H 138/91 H Blood Pressure Mean 86 106 Pulse Ox 95 93 Oxygen Delivery Method Room Air Weight Weight: 103.4 kg Body Mass Index (BMI) 32.7 Physical Exam Const alert and oriented x3 General Appearance: cooperative HEENT normocephalic, head/scalp atraumatic, EAC's normal and TM's normal bilaterally Eyes PERRL and EOMs intact bilaterally Pupil: sluggish Neck no lymphadenopathy, supple and no JVD General: trachea midline Lymph Lymphatic: no lymphadenopathy noted, lymphedema and lymphadenopathy Resp normal respiratory effort, normal air movement and clear to auscultation bilaterally Cardio regular rate, regular rhythm and peripheral pulses 2+ throughout GI soft to palpation, non-tender and non-distended Extremity normal capillary refill and no clubbing, cyanosis or edema General Extremity: no tenderness to palpation of joints or extremities Skin no rashes or lesions noted General Skin Exam: turgor normal Lesions: no lesions Rashes: no rashes Neuro CN's II-XII intact bilaterally Speech: speech normal Motor Exam: strength 5/5 throughout; Negative for general weakness Psych thought process normal, cooperative and affect normal Appearance: appropriate Results Medical Records Data Attestation: I reviewed the patient's medical records Lab / Micro Data 12/25/24 20:34 12/25/24 20:34 Labs: Laboratory Results - last 24 hr 12/25/24 20:34: WBC 17.8 H, RBC 3.91 L, Hgb 11.9 L, Hct 34.8 L, MCV 89.0, MCH 30.4, MCHC 34.2, RDW Std Deviation 40.9, RDW Coeff of Renato 12.6, Plt Count 192, MPV 9.1, Immature Gran % (Auto) 0.900, Neut % (Auto) 91.4 H, Lymph % (Auto) 4.0 L, [place] % (Auto) 3.4, Eos % (Auto) 0.0, Baso % (Auto) 0.3, Absolute Neuts (auto) 16.3 H, Absolute Lymphs (auto) 0.72 L, Nucleated RBC % 0 Assessment & Plan Assessment/Plan (1) Acute UTI: PLAN: Continue with ceftriaxone 1 g every 12 consult infectious disease. Continue with hydration. Continue with all his medications. Admit to the hospital (2) Kidney stone on left side:
[2024-12-25 21:36] LABS: Anion Gap 12 (5-15); BUN 25 mg/dL (4-19); BUN/Creat Ratio 22.3 RATIO (10-20); Calcium,Total 8.9 mg/dL (7.6-11.0); Carbon Dioxide 19.5 mmol/L (21.0-32.0); Chloride 103 mmol/L (98-108); EST Glomerular Filtration Rate 68 (>60); Estimated Creatinine Clearance 64.52 ml/min (50-250); Glucose 134 mg/dL (70-99); Potassium 3.8 mmol/L (3.3-5.1); Sodium Level 134 mmol/L (133-145)
[2024-12-25 22:21] VITALS: BMI 32.6
[2024-12-25 22:26] VITALS: BP 125/53; PULSE 62; RESP 17; TEMP 37.1; O2SAT 97
[2024-12-25] MEDS: 0.9% Normal Saline (1000mL) 1,000 ML 125 ML IV (22:30)
--- NOTE | 2024-12-25 23:00 | PN.HOSP_ITS ---
Subjective Subjective 79-year-old male presents to the hospital after a cystoscopy with left ureteroscopy and laser lithotripsy of stones and a left stent placement on 12/14/2024. It appears that he has a UTI, urine culture from 12/16/2024 demonstrates a pansensitive Pseudomonas. He was seen earlier today and discharged on Keflex from the ER but presents back to the hospital with weakness. Prior to the stent placement he was on Cipro but his left lesions in his mouth. Currently on Rocephin however this will not cover Pseudomonas. Will transition to Zosyn Objective Data Objective Data Vital Signs: Vital Signs Temp Pulse Resp BP Pulse Ox O2 Del Method 98.8 F 62 17 125/53 H 97 Room Air 12/25/24 22:26 12/25/24 22:26 12/25/24 22:26 12/25/24 22:26 12/25/24 22:26 12/25/24 22:26 Oxygen Delivery Method Room Air Weight: 227 lb 8.273 oz Body Mass Index (BMI) 32.6 Intake & Output: Intake and Output for Last 24 Hours 12/24/24 12/25/24 12/26/24 03:59 03:59 03:59 Intake Total 1050 / 1050 Balance 1050 / 1050 Lab / Micro Data 12/25/24 20:34 12/25/24 20:34 Labs: Laboratory Results - last 24 hr 12/25/24 20:34: WBC 17.8 H, RBC 3.91 L, Hgb 11.9 L, Hct 34.8 L, MCV 89.0, MCH 30.4, MCHC 34.2, RDW Std Deviation 40.9, RDW Coeff of Renato 12.6, Plt Count 192, MPV 9.1, Immature Gran % (Auto) 0.900, Neut % (Auto) 91.4 H, Lymph % (Auto) 4.0 L, [place] % (Auto) 3.4, Eos % (Auto) 0.0, Baso % (Auto) 0.3, Absolute Neuts (auto) 16.3 H, Absolute Lymphs (auto) 0.72 L, Nucleated RBC % 0, Sodium 134, Potassium 3.8, Chloride 103, Carbon Dioxide 19.5 L, Anion Gap 12, BUN 25 H, Creatinine 1.10, Estim Creat Clear Calc 64.52, Est GFR (MDRD) Non-Af 68, BUN/Creatinine Ratio 22.3 H, Glucose 134 H, Calcium 8.9 Physical Exam Narrative General: Alert, Oriented x3, Cooperative, No apparent distress HEENT: Atraumatic, PERRLA, EOMI, Normocephalic Oral: Dry mucosa Neck: Supple, No JVD Lungs: Diminished, Normal air movement, No rhonchi, No wheeze, No rales Cardiovascular: Regular rate, Regular Rhythm, Normal S1, Normal S2, No murmurs Abdomen: Soft, Non Tender, Non-Distended, No Hepato-splenomegaly Extremities: No edema, Capillary Refill Less than 3 Seconds Skin: No rashes, No breakdown Musculoskeletal: No Tenderness to Palpation of Joints or Extremities Neurological: No focal neurological deficits, moves all extremities Psych/Mental Status: Normal Affect, Appropriate Assessment & Plan Assessment/Plan (1) Unable to ambulate: (2) Weakness generalized: (3) Acute UTI: PLAN: Plan 1. Acute debility secondary to a Pseudomonas UTI after cystoscopy and lithotripsy with a left ureteral stent/BPH ? Urine culture on 12/16/2024 after the procedure demonstrated Pseudomonas that is pansensitive That she has been on Cipro in the past it caused lesions in his mouth ? Will transition to Zosyn ? Repeat cultures and blood cultures are pending ? Urology is primary and has consulted infectious disease to help with discharge antibiotic planning ? Continue with finasteride and Flomax 2. Essential HTN/HLD ? Continue with his home blood pressure medications ? Will monitor and make adjustments as necessary ? Blood pressures are currently stable ? Continue with Lipitor 3. Anxiety/depression ? Stable ? Continue with Effexor 4. GERD ? Stable ? Continue with PPI Charges/Coding Visit Charges Inpatient E&M: 60282 Subs Hosp L2
[2024-12-25] MEDS: Gabapentin 100 MG Capsule 200 MG PO (23:44)
[2024-12-25] MEDS: Atorvastatin Calcium 40 MG Tablet PO (23:45)
[2024-12-25] MEDS: Tamsulosin HCl 0.4 MG Capsule PO (23:45)
[2024-12-25] MEDS: Docusate Sodium 100 MG Capsule 200 MG PO (23:45)
[2024-12-25] MEDS: Doxazosin 4 MG Tablet PO (23:45)
[2024-12-25] MEDS: Finasteride 5 MG Tablet PO (23:45)
[2024-12-25] MEDS: Piperacil/Tazobactam 3.375 GM in 0.9% Normal Saline (50mL MB+) 50 ML IV (23:54)
[2024-12-26 00:42] VITALS: BP 130/52; PULSE 58; RESP 20; TEMP 37.7; O2SAT 93
--- NOTE | 2024-12-26 02:35 | NURSING ---
This nurse taking over patient care at this time.
[2024-12-26 06:00] VITALS: BP 118/46; PULSE 60; RESP 18; TEMP 38.1; O2SAT 96
[2024-12-26 06:14] LABS: Absolute Lymphocyte Count 0.76 X10^3/uL (0.83-4.51); Absolute Neutrophil Count 14.6 X10^3/uL (2.0-7.7); Basophil# 0.03 X10^3/uL; Basophil% 0.2 % (0-1); Hemoglobin 11.2 g/dL (13.0-16.5); Lymphocyte # 0.76 X10^3/ul (0.83-4.51); Lymphocyte % 4.7 % (19-41); Mean Corp Hgb Conc 33.9 g/dL (32-36); Mean Corpuscular Hgb 30.3 pg (27.0-32.0); Mean Corpuscular Volume 89.2 fL (80-94); Mean Platelet Vol. 9.4 fl (6.2-12.0); Monocyte# 0.66 X10^3/uL; Monocyte% 4.1 % (0-10); NRBC Flagged by Analyzer 0 % (0-5); Neutrophil # 14.59 X10^3/uL (2.7-7.7); Neutrophil % 90.4 % (47-70); Platelet Count 166 K/mm3 (150-450); RBC Distribution Width CV 12.8 % (11.6-14.6); RBC Distribution Width SD 41.6 fl (35.1-43.9); White Blood Count 16.1 K/mm3 (4.4-11.0)
[2024-12-26] MEDS: 0.9% Normal Saline (1000mL) 1,000 ML 125 ML IV ×3 (06:33→21:53)
[2024-12-26] MEDS: Piperacil/Tazobactam 3.375 GM in 0.9% Normal Saline (50mL MB+) 50 ML IV ×3 (06:33→21:53)
[2024-12-26 06:47] LABS: Anion Gap 12 (5-15); BUN 23 mg/dL (4-19); BUN/Creat Ratio 20.3 RATIO (10-20); Calcium,Total 8.3 mg/dL (7.6-11.0); Carbon Dioxide 19.2 mmol/L (21.0-32.0); Chloride 106 mmol/L (98-108); Creatinine, Serum 1.14 mg/dL (0.70-1.20); EST Glomerular Filtration Rate 65 (>60); Estimated Creatinine Clearance 62.19 ml/min (50-250); Glucose 131 mg/dL (70-99); Potassium 3.5 mmol/L (3.3-5.1); Sodium Level 136 mmol/L (133-145)
--- NOTE | 2024-12-26 07:18 | PN.URO_ITS ---
Subjective Subjective 79-year-old gentleman status post laser of stones and stent placement, came back to the hospital with a urinary tract infection, fevers. Admitted for IV antibiotics consult the hospitalist obtained he has been switched to Zosyn for his Pseudomonas infection most recent urine culture still pending patient is been stable Objective Data Objective Data Vital Signs: Vital Signs Temp Pulse Resp BP Pulse Ox O2 Del Method O2 Flow Rate 100.5 F H 60 18 118/46 L 96 Nasal Cannula 2 12/26/24 06:00 12/26/24 06:00 12/26/24 06:00 12/26/24 06:00 12/26/24 06:00 12/26/24 06:00 12/26/24 06:00 Oxygen Flow Rate (L/min) 2 Oxygen Delivery Method Nasal Cannula Weight: 103.2 kg Body Mass Index (BMI) 32.6 Intake & Output: Intake and Output for Last 24 Hours 12/24/24 12/25/24 12/26/24 23:59 23:59 23:59 Intake Total 1050 / 1250 1250 / 1250 Balance 1050 / 1250 1250 / 1250 Lab / Micro Data 12/26/24 05:55 12/26/24 05:55 Labs: Laboratory Results - last 24 hr 12/25/24 20:34: WBC 17.8 H, RBC 3.91 L, Hgb 11.9 L, Hct 34.8 L, MCV 89.0, MCH 30.4, MCHC 34.2, RDW Std Deviation 40.9, RDW Coeff of Renato 12.6, Plt Count 192, MPV 9.1, Immature Gran % (Auto) 0.900, Neut % (Auto) 91.4 H, Lymph % (Auto) 4.0 L, [place] % (Auto) 3.4, Eos % (Auto) 0.0, Baso % (Auto) 0.3, Absolute Neuts (auto) 16.3 H, Absolute Lymphs (auto) 0.72 L, Nucleated RBC % 0, Sodium 134, Potassium 3.8, Chloride 103, Carbon Dioxide 19.5 L, Anion Gap 12, BUN 25 H, Creatinine 1.10, Estim Creat Clear Calc 64.52, Est GFR (MDRD) Non-Af 68, BUN/Creatinine Ratio 22.3 H, Glucose 134 H, Calcium 8.9 12/26/24 05:55: WBC 16.1 H, RBC 3.70 L, Hgb 11.2 L, Hct 33.0 L, MCV 89.2, MCH 30.3, MCHC 33.9, RDW Std Deviation 41.6, RDW Coeff of Renato 12.8, Plt Count 166, MPV 9.4, Immature Gran % (Auto) 0.600, Neut % (Auto) 90.4 H, Lymph % (Auto) 4.7 L, [place] % (Auto) 4.1, Eos % (Auto) 0.0, Baso % (Auto) 0.2, Absolute Neuts (auto) 14.6 H, Absolute Lymphs (auto) 0.76 L, Nucleated RBC % 0, Sodium 136, Potassium 3.5, Chloride 106, Carbon Dioxide 19.2 L, Anion Gap 12, BUN 23 H, Creatinine 1.14, Estim Creat Clear Calc 62.19, Est GFR (MDRD) Non-Af 65, BUN/Creatinine Ratio 20.3 H, Glucose 131 H, Calcium 8.3
--- NOTE | 2024-12-26 07:38 | PN.HOSP_ITS ---
Reason for Visit Reason for Visit: Diagnoses Calculus of kidney (12/25/24) Urinary tract infection, site not specified (12/25/24) Difficulty in walking, not elsewhere classified (12/25/24) Weakness (12/25/24) Subjective Subjective Patient is an 79-year-old gentleman with recent cystoscopy with left ureteroscopy laser lithotripsy of stones and left stent placement who presented to the emergency department with fever and chills. Urine cultures drawn 2 days after patient procedure came back positive for Pseudomonas. Patient subsequently started on Zosyn admitted to regular nursing floor for further management Objective Data Objective Data Vital Signs: Vital Signs Temp Pulse Resp BP Pulse Ox O2 Del Method O2 Flow Rate 100.5 F H 60 18 118/46 L 96 Room Air 2 12/26/24 06:00 12/26/24 06:00 12/26/24 06:00 12/26/24 06:00 12/26/24 06:00 12/26/24 07:38 12/26/24 06:00 Oxygen Flow Rate (L/min) 2 Oxygen Delivery Method Room Air Weight: 103.2 kg Body Mass Index (BMI) 32.6 Intake & Output: Intake and Output for Last 24 Hours 12/24/24 12/25/24 12/26/24 23:59 23:59 23:59 Intake Total 1050 / 1250 1250 / 1250 Balance 1050 / 1250 1250 / 1250 Lab / Micro Data 12/26/24 05:55 12/26/24 05:55 Labs: Laboratory Results - last 24 hr 12/25/24 20:34: WBC 17.8 H, RBC 3.91 L, Hgb 11.9 L, Hct 34.8 L, MCV 89.0, MCH 30.4, MCHC 34.2, RDW Std Deviation 40.9, RDW Coeff of Renato 12.6, Plt Count 192, MPV 9.1, Immature Gran % (Auto) 0.900, Neut % (Auto) 91.4 H, Lymph % (Auto) 4.0 L, [place] % (Auto) 3.4, Eos % (Auto) 0.0, Baso % (Auto) 0.3, Absolute Neuts (auto) 16.3 H, Absolute Lymphs (auto) 0.72 L, Nucleated RBC % 0, Sodium 134, Potassium 3.8, Chloride 103, Carbon Dioxide 19.5 L, Anion Gap 12, BUN 25 H, Creatinine 1.10, Estim Creat Clear Calc 64.52, Est GFR (MDRD) Non-Af 68, BUN/Creatinine Ratio 22.3 H, Glucose 134 H, Calcium 8.9 12/26/24 05:55: WBC 16.1 H, RBC 3.70 L, Hgb 11.2 L, Hct 33.0 L, MCV 89.2, MCH 30.3, MCHC 33.9, RDW Std Deviation 41.6, RDW Coeff of Renato 12.8, Plt Count 166, MPV 9.4, Immature Gran % (Auto) 0.600, Neut % (Auto) 90.4 H, Lymph % (Auto) 4.7 L, [place] % (Auto) 4.1, Eos % (Auto) 0.0, Baso % (Auto) 0.2, Absolute Neuts (auto) 14.6 H, Absolute Lymphs (auto) 0.76 L, Nucleated RBC % 0, Sodium 136, Potassium 3.5, Chloride 106, Carbon Dioxide 19.2 L, Anion Gap 12, BUN 23 H, Creatinine 1.14, Estim Creat Clear Calc 62.19, Est GFR (MDRD) Non-Af 65, BUN/Creatinine Ratio 20.3 H, Glucose 131 H, Calcium 8.3 Physical Exam Narrative GENERAL: cooperative but appears ill looking HEENT: Atraumatic; herpetic lesion on right lower EYES; Anicteric, Normal Conjunctiva NECK; supple, normal thyroid, RESPIRATORY: Diminished to auscultation CARDIOVASCULAR: Regular S1 S2, GI: soft, normoactive bowel sounds, : No Renal angle tenderness; EXTREMITIES: No edema, no clubbing, MUSCULOSKELETAL: no muscle wasting NEURO: Awake; no lateralizing signs. SKIN: No Rash PSYCH; Flat affect Assessment & Plan Assessment/Plan (1) Unable to ambulate: (2) Weakness generalized: (3) Acute UTI: PLAN: Plan Patient is an 79-year-old gentleman with recent cystoscopy with left ureteroscopy laser lithotripsy of stones and left stent placement on 12/14/2024 who presented to the emergency department with fever and chills. Urine cultures drawn 2 days after patient procedure came back positive for Pseudomonas. Patient subsequently started on Zosyn admitted to regular nursing floor for further management 1. Acute pyelonephritis ? Patient had grown Pseudomonas as outpatient. Started on ceftriaxone on admission and switched to Zosyn repeat cultures sent. Consult was also placed to infectious disease 2. Nephrolithiasis ? Status cystoscopy with left ureteroscopy laser lithotripsy of stones and left stent placement on 12/14/2024. Patient is followed by urology?Dr Guidry 3. BPH with lower urinary obstructive symptoms - Patient treated with tamsulosin as well as finasteride, continued #4. Hypertension ? Blood pressure controlled, home medications continued with dose adjustment as needed 5. Dyslipidemia ?Patient is on statin therapy, continued at home dose 6. GERD ? Patient is on PPI 7. Depression with anxiety ? Patient is on venlafaxine 8. Class I obesity with BMI of 32.6 ? Complicating care weight loss advised 9. DVT prophylaxis ? On enoxaparin 10. Stomatitis ? Plan is to treat symptomatically Advance planning; did discuss with the patient and family (patient's ) regarding advanced directives as well as CODE STATUS. Did explain the various scenarios involved ( FULL CODE, DNR CCA, DNR CCA with no intubation, and DNR CC and what each meant) patient elected to remain full code with CPR and intubation if warranted. Order was placed. Time spent on discussion 16minutes. Charges/Coding Multi Select Codes Visit Charges Visit Charges: 01932 [facility] L2 Hospitalists' Procedures Procedures: 77876 Advncd Care Plan 30 Min
[2024-12-26 08:40] VITALS: TEMP 39.4
[2024-12-26] MEDS: Acetaminophen 500 MG Tablet 1000 MG PO ×2 (08:40→20:15)
[2024-12-26 09:17] VITALS: BP 127/53; PULSE 63; RESP 18; TEMP 37.9; O2SAT 95
[2024-12-26] MEDS: Losartan Potassium 50 MG Tablet PO (10:26)
[2024-12-26] MEDS: Enoxaparin 40 MG/0.4 ML Syringe SC (10:27)
[2024-12-26] MEDS: Venlafaxine XR 150 MG Capsule PO (10:27)
[2024-12-26] MEDS: Docusate Sodium 100 MG Capsule 200 MG PO (10:27)
[2024-12-26] MEDS: NYSTATIN 500,000 UNIT/5 ML UDC 500000 UNIT PO ×4 (10:27→21:53)
[2024-12-26] MEDS: Pantoprazole Sodium 40 MG Tablet PO (10:27)
--- NOTE | 2024-12-26 13:10 | PCM.CONS.GEN ---
Assessment & Plan Assessment/Plan (1) Acute UTI: PLAN: Ucx pending, recent Ucx with PsA but had reaction to cipro. Feeling better, will continue zosyn. Likely will need midline and home iv abx at discharge. Will follow, thank you (2) History of ureter stent: (3) Hx of renal calculi: HPI Consult Data Date of Consult: 12/26/24 HPI Narrative Reason for Consultation: uti HPI Narrative: ANUPAMA MARSH, is a 79 M with h/o kidney stones, had laser lithotripsy and L sided stent placed by Dr. Guidry on 12/14/24. A few days after that, developed abd and flank pain with dysuria. Ucx sent, started on cipro for PsA. Took for about 5 days but developed lip/gum pain and swelling and abx stopped about a week ago. Urinary sx worsened, admitted here with new fever, started on zosyn, feeling better this AM. Full ROS performed and neg except as noted above. [facility] Medical History Kidney stone on left side Loss of hearing Prostate disease Low iron Restless legs Hypertension History of MRSA infection Wears glasses Anxiety Arthritis High cholesterol Gastric reflux Non-smoker CPAP (continuous positive airway pressure) dependence History of pain when walking History of stress test History of echocardiogram Cardiology follow-up encounter BPH (benign prostatic hyperplasia) Dyslipidemia Nephrolithiasis Coronary artery disease Home Medications ?Medication ?Instructions ?Recorded ?Last Taken ?Type aspirin 81 mg tablet,delayed 81 mg PO QHS BLOOD THINNER 04/04/15 12/07/24 History release atorvastatin 40 mg tablet 40 mg PO QHS CHOLESTEROL 04/04/15 12/15/24 History finasteride 5 mg tablet 5 mg PO QHS URINATION 04/04/15 12/15/24 History tamsulosin 0.4 mg capsule 0.4 mg PO QHS URINATION 04/04/15 12/15/24 History doxazosin 4 mg tablet,extended 4 mg PO QHS HEART 01/23/17 12/15/24 History release 24 hr (Cardura XL) cholecalciferol (vitamin D3) 25 25 mcg PO DAILY SUPPLEMENT 12/17/21 12/15/24 History mcg (1,000 unit) capsule (Vitamin D3) gabapentin 100 mg capsule 200 mg PO QHS PAIN 12/17/21 12/15/24 History losartan 50 mg tablet 50 mg PO DAILY BP 12/17/21 12/16/24 History multivitamin 1 tab PO DAILY SUPPLEMENT 12/17/21 12/16/24 History tramadol 50 mg tablet 50 mg PO 4X/DAY PRN pain 12/08/24 12/15/24 History ibuprofen 600 mg tablet 600 mg PO Q6H PRN pain #20 tabs 12/14/24 12/16/24 Rx acetaminophen 500 mg capsule 1,000 mg PO Q4H PRN pain 12/16/24 12/16/24 History omeprazole 20 mg capsule,delayed 40 mg PO DAILY 12/16/24 12/16/24 History release venlafaxine 150 mg 150 mg PO DAILY 12/16/24 12/15/24 History capsule,extended release 24 hr cephalexin 500 mg capsule 500 mg PO Q6 #20 CAPSULES 12/25/24 Unknown Rx Allergy/AdvReac Type Severity Reaction Status Date / Time No Known Allergies Allergy Verified 12/25/24 20:10 Surgical History S/P umbilical hernia repair, follow-up exam Hx of bilateral cataract extraction Hx of hernia repair Hx of appendectomy History of carpal tunnel release of both wrists Hx of repair of right rotator cuff Hx of repair of left rotator cuff Hx of bilateral hip replacements Social History household members: spouse Smoking Status: Never smoker Physical Exam Const alert, oriented x3 and no apparent distress General Appearance: cooperative HEENT normocephalic and head/scalp atraumatic Eyes PERRL and EOMs intact bilaterally Neck supple and No nodes Resp normal air movement and clear to auscultation bilaterally Cardio regular rate and regular rhythm GI soft to palpation, non-tender and non-distended Extremity General Extremity: Negative for edema Skin no rashes or lesions noted Neuro CN's II-XII intact bilaterally Lab / Micro Data Attestation: I reviewed the patient's lab results. 12/26/24 05:55 12/26/24 05:55 Labs: Laboratory Results - last 24 hr 12/25/24 20:34: WBC 17.8 H, RBC 3.91 L, Hgb 11.9 L, Hct 34.8 L, MCV 89.0, MCH 30.4, MCHC 34.2, RDW Std Deviation 40.9, RDW Coeff of Renato 12.6, Plt Count 192, MPV 9.1, Immature Gran % (Auto) 0.900, Neut % (Auto) 91.4 H, Lymph % (Auto) 4.0 L, [place] % (Auto) 3.4, Eos % (Auto) 0.0, Baso % (Auto) 0.3, Absolute Neuts (auto) 16.3 H, Absolute Lymphs (auto) 0.72 L, Nucleated RBC % 0, Sodium 134, Potassium 3.8, Chloride 103, Carbon Dioxide 19.5 L, Anion Gap 12, BUN 25 H, Creatinine 1.10, Estim Creat Clear Calc 64.52, Est GFR (MDRD) Non-Af 68, BUN/Creatinine Ratio 22.3 H, Glucose 134 H, Calcium 8.9 12/26/24 05:55: WBC 16.1 H, RBC 3.70 L, Hgb 11.2 L, Hct 33.0 L, MCV 89.2, MCH 30.3, MCHC 33.9, RDW Std Deviation 41.6, RDW Coeff of Renato 12.8, Plt Count 166, MPV 9.4, Immature Gran % (Auto) 0.600, Neut % (Auto) 90.4 H, Lymph % (Auto) 4.7 L, [place] % (Auto) 4.1, Eos % (Auto) 0.0, Baso % (Auto) 0.2, Absolute Neuts (auto) 14.6 H, Absolute Lymphs (auto) 0.76 L, Nucleated RBC % 0, Sodium 136, Potassium 3.5, Chloride 106, Carbon Dioxide 19.2 L, Anion Gap 12, BUN 23 H, Creatinine 1.14, Estim Creat Clear Calc 62.19, Est GFR (MDRD) Non-Af 65, BUN/Creatinine Ratio 20.3 H, Glucose 131 H, Calcium 8.3
[2024-12-26 14:14] VITALS: BP 125/47; PULSE 55; RESP 16; TEMP 36.8; O2SAT 98
--- NOTE | 2024-12-26 14:39 | CASEMGMT ---
ROCIO GU Assessment: Face to Face with pt for initial transition planning/care coordination assessment. ROCIO GU introduced self and role at [facility], pt voices understanding and consents to assessment. Pt is A&O x4 and answers all questions appropriately at this time. Pt sitting up in chair in no distress, daughters sitting at bedside. Care providers, pharmacy, and demographics verified/updated. Strata: 2 Admitting Dx: UTI PCP: Kerry Specialists: [facility] Hydroelectric Powerplant Supervisor; Urologist, Betty. Preferred Pharmacy: [facility] Insurance: [facility] Supplement. Prescription Benefit: yes LNOK: Agustin Thomas Living Arrangements: Pt lives with in a 1 level home with laundry in the basement. Pt home has 5-6 steps to enter with a handrail. ADLs: Pt I with ADLs and IADLs, with the exception of laundry, goes downstairs to do the laundry. Transportation: Pt drives self and denies concerns with transportation. DME: Cane, walker, shower bench available but does not use. CPAP HHC/SNF: Denies Hx of. Pt states no concerns with going home at time of dc. Pt states no further concerns/needs. CM to follow. Advised pt to ask CM if any further question/concerns/needs arise, voices understanding. Pt Goal: Home Plan: Home with family support. Follow for safe DC. En CHAN CM
--- NOTE | 2024-12-26 16:16 | CHAPLAIN ---
Type of Pastoral Visit _x__ Initial Visit ___ Follow-up Visit ___ On-call Visit ___ General Patient Visit ___ Spiritual Assessment ___ Family Conference ___ Bereavement ___ Rapid Response ___ Code Blue ___ Other (describe below) Pastoral Care Referral From _x__ Patient ___ Family ___ Nurse ___ Physician ___ Yarn Worker ___ Glue Jointer Operator ___ Other (describe below) Sacrament/Intervention _x__ Active listening ___ Anointing ___ Latter-Day ___ Bereavement ___ Communion ___ Katie exploration ___ ___ Life review ___ Prayer ___ Reconciliation ___ Sacrament of Sick _x__ Supportive presence ___ Wedding ___ Other (describe below) Pastoral Comments patient and spouse are in the room; both indicate that health is improving; pt wants to be well to play golf again real soon; pt denies any needs but both say that the care is good and adequate for their needs
[2024-12-26] MEDS: Finasteride 5 MG Tablet PO (20:15)
[2024-12-26] MEDS: Atorvastatin Calcium 40 MG Tablet PO ×2 (20:15)
[2024-12-26] MEDS: Doxazosin 4 MG Tablet PO (20:15)
[2024-12-26 20:20] VITALS: BP 131/60; PULSE 56; RESP 16; TEMP 36.6; O2SAT 95
[2024-12-26] MEDS: Tamsulosin HCl 0.4 MG Capsule PO (21:53)
[2024-12-26] MEDS: Gabapentin 100 MG Capsule 200 MG PO (21:53)
[2024-12-27] MEDS: Piperacil/Tazobactam 3.375 GM in 0.9% Normal Saline (50mL MB+) 50 ML IV ×2 (05:31→14:35)
[2024-12-27] MEDS: Acetaminophen 500 MG Tablet 1000 MG PO (05:32)
[2024-12-27 05:35] VITALS: BP 128/54; PULSE 54; RESP 16; TEMP 36.7; O2SAT 98
[2024-12-27 06:01] LABS: Absolute Lymphocyte Count 1.07 X10^3/uL (0.83-4.51); Absolute Neutrophil Count 11.8 X10^3/uL (2.0-7.7); Basophil# 0.06 X10^3/uL; Basophil% 0.4 % (0-1); Eosinophil# 0.09 X10^3/uL; Eosinophils% 0.7 % (0-5); Hemoglobin 10.4 g/dL (13.0-16.5); Lymphocyte # 1.07 X10^3/ul (0.83-4.51); Lymphocyte % 7.8 % (19-41); Mean Corp Hgb Conc 32.5 g/dL (32-36); Mean Corpuscular Hgb 29.8 pg (27.0-32.0); Mean Corpuscular Volume 91.7 fL (80-94); Mean Platelet Vol. 9.6 fl (6.2-12.0); Monocyte# 0.66 X10^3/uL; Monocyte% 4.8 % (0-10); NRBC Flagged by Analyzer 0 % (0-5); Neutrophil # 11.76 X10^3/uL (2.7-7.7); Neutrophil % 85.8 % (47-70); Platelet Count 159 K/mm3 (150-450); RBC Distribution Width CV 12.9 % (11.6-14.6); RBC Distribution Width SD 42.9 fl (35.1-43.9); Red Blood Count 3.49 M/mm3 (4.6-6.2); White Blood Count 13.7 K/mm3 (4.4-11.0)
[2024-12-27 06:24] LABS: Anion Gap 8 (5-15); BUN 22 mg/dL (4-19); BUN/Creat Ratio 20.2 RATIO (10-20); Calcium,Total 8.1 mg/dL (7.6-11.0); Carbon Dioxide 19.6 mmol/L (21.0-32.0); Chloride 111 mmol/L (98-108); Creatinine, Serum 1.08 mg/dL (0.70-1.20); EST Glomerular Filtration Rate 69 (>60); Estimated Creatinine Clearance 65.65 ml/min (50-250); Glucose 105 mg/dL (70-99); Magnesium 2.2 mg/dL (1.5-2.2); Potassium 3.6 mmol/L (3.3-5.1); Sodium Level 138 mmol/L (133-145)
[2024-12-27 06:49] LABS: Phosphorus 2.1 mg/dL (2.7-4.5)
--- NOTE | 2024-12-27 07:26 | DS.PCM_ITS ---
Providers Date of Admission: 12/25/24 Date of Discharge: 12/27/24 Primary Care Physician: Dr. Abe Payne MD Consultations 12/25/24 21:37 Consult: Hospitalist Routine Consulting Provider: [facility] Reason for Consult: medical manegment EMERGENT Consult: No Notified: Yes Date Notified: 12/25/24 Time Notified: 22:34 Method of Notification: Text Consult: Infectious Disease Routine Consulting Provider: Triston Villarreal Reason for Consult: pseudomonas infection EMERGENT Consult: No Notified: Yes Date Notified: 12/26/24 Time Notified: 06:39 Method of Notification: Text Reason For Visit: UTI Diagnosis Discharge Diagnosis (1) Acute UTI: Status: Acute Code(s): N39.0 - Urinary tract infection, site not specified (2) History of ureter stent: Status: Acute (3) Hx of renal calculi: Status: Acute Code(s): Z87.442 - Personal history of urinary calculi Medications at Discharge Home Medications aspirin 81 mg tablet,delayed release 81 mg PO QHS BLOOD THINNER 04/04/15 atorvastatin 40 mg tablet 40 mg PO QHS CHOLESTEROL 04/04/15 finasteride 5 mg tablet 5 mg PO QHS URINATION 04/04/15 tamsulosin 0.4 mg capsule 0.4 mg PO QHS URINATION 04/04/15 doxazosin 4 mg tablet,extended release 24 hr (Cardura XL) 4 mg PO QHS HEART 01/23/17 cholecalciferol (vitamin D3) 25 mcg (1,000 unit) capsule (Vitamin D3) 25 mcg PO DAILY SUPPLEMENT 12/17/21 gabapentin 100 mg capsule 200 mg PO QHS PAIN 12/17/21 losartan 50 mg tablet 50 mg PO DAILY BP 12/17/21 multivitamin 1 tab PO DAILY SUPPLEMENT 12/17/21 tramadol 50 mg tablet 50 mg PO 4X/DAY PRN pain 12/08/24 ibuprofen 600 mg tablet 600 mg PO Q6H PRN pain #20 tabs 12/14/24 acetaminophen 500 mg capsule 1,000 mg PO Q4H PRN pain 12/16/24 omeprazole 20 mg capsule,delayed release 40 mg PO DAILY 12/16/24 venlafaxine 150 mg capsule,extended release 24 hr 150 mg PO DAILY 12/16/24 Hospital Course Operations None Procedures None Summary of Care Provided Minutes Spent on Discharge: 35 Hospital Course: An 79-year-old gentleman who had a large stones in his left kidney he underwent ureteroscopy and laser lithotripsy of the stones, after surgery he was sent home with Cipro, he then presented to the emergency room with weakness UTI known to have a Pseudomonas UTI was sent home with antibiotics came back to the emergency room with continued weakness recognize that Pseudomonas was causing the UTI so at this point he was admitted for IV antibiotics consult was done the hospitalist and to infectious disease. Infectious disease recommending to go home with IV antibiotics per his recommendations with a midline which she sounds very reasonable. Patient is stable clinically stable white count is coming down still growing Pseudomonas in the urine provide the same Pseudomonas he had before needs to be treated appropriately with antibiotics he should be able go home today with IV antibiotics and follow-up with Dr. Palmer and also follow- up with myself next week for stent removal. Physical Exam Const alert and oriented x3 General Appearance: cooperative HEENT normocephalic, head/scalp atraumatic, EAC's normal and TM's normal bilaterally Eyes PERRL and EOMs intact bilaterally Pupil: sluggish Neck no lymphadenopathy, supple and no JVD General: trachea midline Lymph Lymphatic: no lymphadenopathy noted, lymphedema and lymphadenopathy Resp normal respiratory effort, normal air movement and clear to auscultation bilaterally Cardio regular rate, regular rhythm and peripheral pulses 2+ throughout GI soft to palpation, non-tender and non-distended Extremity normal capillary refill and no clubbing, cyanosis or edema General Extremity: no tenderness to palpation of joints or extremities Skin no rashes or lesions noted General Skin Exam: turgor normal Lesions: no lesions Rashes: no rashes Neuro CN's II-XII intact bilaterally Speech: speech normal Motor Exam: strength 5/5 throughout; Negative for general weakness Psych thought process normal, cooperative and affect normal Appearance: appropriate Weight / BMI Weight Weight: 103.2 kg Body Mass Index (BMI) 32.6 ABG / Lab / Microbiology Data 12/27/24 05:39 12/27/24 05:39 Laboratory: Laboratory Results - last 24 hr 12/27/24 05:39: WBC 13.7 H, RBC 3.49 L, Hgb 10.4 L, Hct 32.0 L, MCV 91.7, MCH 29.8, MCHC 32.5, RDW Std Deviation 42.9, RDW Coeff of Renato 12.9, Plt Count 159, MPV 9.6, Immature Gran % (Auto) 0.500, Neut % (Auto) 85.8 H, Lymph % (Auto) 7.8 L, [place] % (Auto) 4.8, Eos % (Auto) 0.7, Baso % (Auto) 0.4, Absolute Neuts (auto) 11.8 H, Absolute Lymphs (auto) 1.07, Nucleated RBC % 0, Sodium 138, Potassium 3.6, Chloride 111 H, Carbon Dioxide 19.6 L, Anion Gap 8, BUN 22 H, Creatinine 1.08, Estim Creat Clear Calc 65.65, Est GFR (MDRD) Non-Af 69, BUN/Creatinine Ratio 20.2 H, Glucose 105 H, Calcium 8.1, Phosphorus 2.1 L, Magnesium 2.2 Microbiology: Microbiology 12/26/24 18:46 Stool Enteric Bacteriology - Final 12/26/24 18:46 Stool Clostridioides difficile (PCR) - Final D/C Instructions Discharge Diet: No restrictions Discharge Activity: Return to Normal Activity and May Not Drive (while taking narcotic pain medications.) Call your doctor if you observe: Fever of 101 or Higher DC O2, CPAP, BIPAP Needs Home O2 Discharge instructions: No Please Follow Up With: Dennis Guidry MD When: Call [phone] for an appointment Meaningful Use Info Meaningful Use Meaningful Use Diagnoses (Choose all that apply): None applicable Ischemic Stroke Statin Dosing Therapy Reference: STATIN DOSE THERAPY REFERENCE: * Patients > 75 years receive moderate or high dose statin therapy. * Patients 75 years or YOUNGER should receive HIGH intensity statin dose unless contraindicated. You will be required to document reason for non-treatment if statin daily dose does not meet guidelines. HIGH DOSE STATIN THERAPY DAILY Atorvastatin > than or = to 40 mg Rosuvastatin > than or = to 20 mg Amlodipine + Atorvastatin > than or = to 2.5/40 mg Ezetimibe + Simvastatin 10/80 mg Simvastatin 80mg Discharge Plan Admission Admit Date/Time: 12/25/24 21:34 Primary Reason for Your Visit: Pyelonephritis Attending Provider: Dennis Guidry Primary Care Provider: Abe Payne Consulting Providers: Juliet Davis; Nj Nielsen; Efren Spencer; Latonia Mariee; Kristine Dorman NP; Delilah Justin; Carolina Gooden; Ha Sheikh; Anika Garcia; Anika Neal; Triston Villarreal Discharge Orders/Prescriptions Prescriptions: Continued atorvastatin 40 MG tablet 40 mg PO QHS aspirin 81 MG tablet 81 mg PO QHS Patient Comments: [facility] tamsulosin 0.4 MG capsule 0.4 mg PO QHS finasteride 5 MG tablet 5 mg PO QHS Patient Comments: PROSTATE Cardura XL 4 MG tablet extended release 24hr 4 mg PO QHS multivitamin Tablet 1 tab PO DAILY losartan 50 mg tablet 50 mg PO DAILY gabapentin 100 mg capsule 200 mg PO QHS cholecalciferol (vitamin D3) [Vitamin D3] 25 mcg (1,000 unit) Capsule 25 mcg PO DAILY venlafaxine 150 mg capsule,extended release 24hr 150 mg PO DAILY Patient Comments: PT TAKES AT BEDTIME acetaminophen 500 mg capsule 1,000 mg PO Q4H PRN (Reason: pain) omeprazole 20 mg capsule,delayed release(DR/EC) 40 mg PO DAILY tramadol 50 mg tablet 50 mg PO 4X/DAY PRN (Reason: pain) ibuprofen 600 mg tablet 600 mg PO Q6H PRN (Reason: pain) Qty: 20 0RF Discontinued cephalexin 500 mg capsule 500 mg PO Q6 Qty: 20 0RF Referrals / Follow Up: Dennis Guidry MD [Med Staff - Active Staff] - Abe Payne MD [Primary Care Provider] - Disposition Disposition (needs filled in before D/C Order can be placed): Home, Self Care
--- NOTE | 2024-12-27 07:28 | PCM.PN.GU ---
Subjective Subjective Patient is clinically well doing well alert orient x 3 back to normal status normal mental status tolerating regular diet his vital signs are stable he is ambulating no more fevers he is on appropriate and IV antibiotics infectious diseases recommended home with IV antibiotics with a midline which is reasonable once, once IV antibiotics for home get set up he can go home, pt is discharge pending that set up. Objective Data Objective Data Vital Signs: Vital Signs Temp Pulse Resp BP Pulse Ox O2 Del Method O2 Flow Rate 98.1 F 54 L 16 128/54 H 98 Nasal Cannula 2 12/27/24 05:35 12/27/24 05:35 12/27/24 05:35 12/27/24 05:35 12/27/24 05:35 12/27/24 05:35 12/27/24 05:35 Oxygen Flow Rate (L/min) 2 Oxygen Delivery Method Nasal Cannula Weight: 103.2 kg Body Mass Index (BMI) 32.6 Intake & Output: Intake and Output for Last 24 Hours 12/25/24 12/26/24 12/27/24 23:59 23:59 23:59 Intake Total 1050 / 1250 3266.67 / 3266.67 1050 / 1050 Balance 1050 / 1250 3266.67 / 3266.67 1050 / 1050 Lab / Micro Data 12/27/24 05:39 12/27/24 05:39 Labs: Laboratory Results - last 24 hr 12/27/24 05:39: WBC 13.7 H, RBC 3.49 L, Hgb 10.4 L, Hct 32.0 L, MCV 91.7, MCH 29.8, MCHC 32.5, RDW Std Deviation 42.9, RDW Coeff of Renato 12.9, Plt Count 159, MPV 9.6, Immature Gran % (Auto) 0.500, Neut % (Auto) 85.8 H, Lymph % (Auto) 7.8 L, [place] % (Auto) 4.8, Eos % (Auto) 0.7, Baso % (Auto) 0.4, Absolute Neuts (auto) 11.8 H, Absolute Lymphs (auto) 1.07, Nucleated RBC % 0, Sodium 138, Potassium 3.6, Chloride 111 H, Carbon Dioxide 19.6 L, Anion Gap 8, BUN 22 H, Creatinine 1.08, Estim Creat Clear Calc 65.65, Est GFR (MDRD) Non-Af 69, BUN/Creatinine Ratio 20.2 H, Glucose 105 H, Calcium 8.1, Phosphorus 2.1 L, Magnesium 2.2 Micro: Microbiology 12/26/24 18:46 Stool Enteric Bacteriology - Final 12/26/24 18:46 Stool Clostridioides difficile (PCR) - Final
--- NOTE | 2024-12-27 07:29 | PCM.PN.HOSP ---
Reason for Visit Reason for Visit: Diagnoses Calculus of kidney (12/25/24) Urinary tract infection, site not specified (12/25/24) Difficulty in walking, not elsewhere classified (12/25/24) Weakness (12/25/24) Personal history of urinary calculi (12/25/24) Subjective Subjective Patient was seen in consultation by ID the day prior Dr. Villarreal is recommending a midline for outpatient IV antibiotics. Diagnostic data reviewed significant for potassium of 2.1 this a.m.. Patient repeat urine cultures came back positive for Pseudomonas. Objective Data Objective Data Vital Signs: Vital Signs Temp Pulse Resp BP Pulse Ox O2 Del Method O2 Flow Rate 98.1 F 54 L 16 128/54 H 98 Nasal Cannula 2 12/27/24 05:35 12/27/24 05:35 12/27/24 05:35 12/27/24 05:35 12/27/24 05:35 12/27/24 05:35 12/27/24 05:35 Oxygen Flow Rate (L/min) 2 Oxygen Delivery Method Nasal Cannula Weight: 103.2 kg Body Mass Index (BMI) 32.6 Intake & Output: Intake and Output for Last 24 Hours 12/25/24 12/26/24 12/27/24 23:59 23:59 23:59 Intake Total 1050 / 1250 3266.67 / 3266.67 1050 / 1050 Balance 1050 / 1250 3266.67 / 3266.67 1050 / 1050 Lab / Micro Data 12/27/24 05:39 12/27/24 05:39 Labs: Laboratory Results - last 24 hr 12/27/24 05:39: WBC 13.7 H, RBC 3.49 L, Hgb 10.4 L, Hct 32.0 L, MCV 91.7, MCH 29.8, MCHC 32.5, RDW Std Deviation 42.9, RDW Coeff of Renato 12.9, Plt Count 159, MPV 9.6, Immature Gran % (Auto) 0.500, Neut % (Auto) 85.8 H, Lymph % (Auto) 7.8 L, [place] % (Auto) 4.8, Eos % (Auto) 0.7, Baso % (Auto) 0.4, Absolute Neuts (auto) 11.8 H, Absolute Lymphs (auto) 1.07, Nucleated RBC % 0, Sodium 138, Potassium 3.6, Chloride 111 H, Carbon Dioxide 19.6 L, Anion Gap 8, BUN 22 H, Creatinine 1.08, Estim Creat Clear Calc 65.65, Est GFR (MDRD) Non-Af 69, BUN/Creatinine Ratio 20.2 H, Glucose 105 H, Calcium 8.1, Phosphorus 2.1 L, Magnesium 2.2 Micro: Microbiology 12/26/24 18:46 Stool Enteric Bacteriology - Final 12/26/24 18:46 Stool Clostridioides difficile (PCR) - Final Physical Exam Narrative GENERAL: cooperative but appears ill looking HEENT: Atraumatic; herpetic lesion on right lower EYES; Anicteric, Normal Conjunctiva NECK; supple, normal thyroid, RESPIRATORY: Diminished to auscultation CARDIOVASCULAR: Regular S1 S2, GI: soft, normoactive bowel sounds, : No Renal angle tenderness; EXTREMITIES: No edema, no clubbing, MUSCULOSKELETAL: no muscle wasting NEURO: Awake; no lateralizing signs. SKIN: No Rash PSYCH; Flat affect Assessment & Plan Assessment/Plan (1) Unable to ambulate: (2) Weakness generalized: (3) Acute UTI: PLAN: Plan Patient is an 79-year-old gentleman with recent cystoscopy with left ureteroscopy laser lithotripsy of stones and left stent placement on 12/14/2024 who presented to the emergency department with fever and chills. Urine cultures drawn 2 days after patient procedure came back positive for Pseudomonas. Patient subsequently started on Zosyn admitted to regular nursing floor for further management 1. Acute pyelonephritis ? Patient had grown Pseudomonas as outpatient. Started on ceftriaxone on admission and switched to Zosyn repeat cultures sent. Consult was also placed to infectious disease ? 12/27/2024;Patient was seen in consultation by ID the day prior Dr. Villarreal is recommending a midline for outpatient IV antibiotics. Diagnostic data reviewed significant for potassium of 2.1 this a.m.. Patient repeat urine cultures came back positive for Pseudomonas. 2. Nephrolithiasis ? Status cystoscopy with left ureteroscopy laser lithotripsy of stones and left stent placement on 12/14/2024. Patient is followed by urology?Dr Guidry 3. BPH with lower urinary obstructive symptoms - Patient treated with tamsulosin as well as finasteride, continued 4. Hypertension ? Blood pressure controlled, home medications continued with dose adjustment as needed 5. Dyslipidemia ?Patient is on statin therapy, continued at home dose 6. GERD ? Patient is on PPI 7. Depression with anxiety ? Patient is on venlafaxine 8. Class I obesity with BMI of 32.6 ? Complicating care weight loss advised 9. DVT prophylaxis ? On enoxaparin 10. Stomatitis ? Plan is to treat symptomatically Time spent in the patient's overall evaluation,decision-making process, review of diagnostic data, adjustment of management, discussion with other providers, nursing nursing and ancillary staff involved in patient's care documentation, 36 Minutes Charges/Coding Visit Charges Inpatient E&M: 99068 Subs Hosp L2
[2024-12-27 08:01] VITALS: O2SAT 96
[2024-12-27 09:00] VITALS: BP 121/53; PULSE 53; RESP 18; TEMP 36.6; O2SAT 98
[2024-12-27] MEDS: Na Biphos/Potassium Phosphate PACKET 1 PACKET PO ×2 (09:18→14:38)
[2024-12-27] MEDS: Losartan Potassium 50 MG Tablet PO (09:18)
[2024-12-27] MEDS: Pantoprazole Sodium 40 MG Tablet PO (09:18)
[2024-12-27] MEDS: NYSTATIN 500,000 UNIT/5 ML UDC 500000 UNIT PO ×2 (09:19→14:38)
[2024-12-27] MEDS: Enoxaparin 40 MG/0.4 ML Syringe SC (09:19)
[2024-12-27] MEDS: Venlafaxine XR 150 MG Capsule PO (09:19)
--- NOTE | 2024-12-27 09:19 | CASEMGMT ---
ROCIO GU noted ID recommending IV antibiotics at [place]. ROCIO GU into pt room to discuss. present in the room and agreeable to assisting with the IV antibiotics at home. ROCIO GU offered list of [facility] agencies, denied list and requested [facility]. Provided verbal list of local [facility] agencies to deliver medication, pt chose [facility] as provider of choice. ROCIO GU called [facility] and made referral. Sent referral to [facility] through [facility].
--- NOTE | 2024-12-27 09:50 | CASEMGMT ---
Discharge Planning Referral sent to [facility] and [facility]. Mercedez Brice DC Planning Asst.
--- NOTE | 2024-12-27 10:35 | PCM.PN.ID ---
Physical Exam Narrative Feeling well, no fever, no abd pain, no n/v/d Const alert and no apparent distress General Appearance: cooperative Resp normal air movement and clear to auscultation bilaterally Cardio regular rate and regular rhythm GI soft to palpation, non-tender and non-distended Skin no rashes or lesions noted ID ID: Route of nutrition/ use of supplements: [] Nutritional Intake: [] IV Site: [] Villa Catheter: [] Assessment & Plan Assessment/Plan (1) Acute UTI: PLAN: Ucx PsA again, recent Ucx with PsA but had reaction to cipro. Feeling better, will continue zosyn. Will order midline and home iv zosyn for 5 more days at discharge. Will follow, d/w telehealth case manager (2) History of ureter stent: (3) Hx of renal calculi:
--- NOTE | 2024-12-27 10:54 | CASEMGMT ---
ID provided script for IV antibiotics. Scanned and sent to I for update, placed order in chart.
--- NOTE | 2024-12-27 12:10 | CASEMGMT ---
ROCIO GU sent antibiotic order to [facility] through [employer].
--- NOTE | 2024-12-27 12:58 | CASEMGMT ---
[facility] able to accept pt. Cost for medication is 86.96/week and cost for supplies is 140/week. ROCIO GU into pt room, discussed cost. pt is agreeable. ROCIO GU notified [facility]. ROCIO GU asked for a delivery time. Myrtle from [facility] called and SOC time is 6:30 am tomorrow morning. ROCIO GU notified family.
--- NOTE | 2024-12-27 13:36 | CASEMGMT ---
ROCIO GU spoke with ID, approved Pt skipping IV antibiotics tonight and starting home IV tomorrow morning.
--- NOTE | 2024-12-27 15:30 | CASEMGMT ---
ROCIO GU received call from Timo with [facility], unable to reach pt. Brought phone back to Pt room, they confirmed address and delivery time for tonight.
[2024-12-27 15:35] VITALS: BP 137/80; PULSE 53; RESP 18; TEMP 36.3; O2SAT 98
== END 2024-12-27 15:26 | disposition home or self-care (01) | DRG 690 ==
LOC: ED 21:46 → MS3 22:44
PROVIDERS: Internal Medicine; Admitting Provider Urology; Emergency Provider Emergency Medicine; PCP Family Medicine; Visit Provider Urology
DX: N10 Acute pyelonephritis (principal); N13.8 Other obstructive and reflux uropathy; B00.2 Herpesviral gingivostomatitis and pharyngotonsillitis; B96.5 Pseudomonas (aeruginosa) (mallei) (pseudomallei) as the cause of diseases classified elsewhere; I10 Essential (primary) hypertension; F32.A Depression, unspecified; Z68.32 Body mass index [BMI] 32.0-32.9, adult; E78.00 Pure hypercholesterolemia, unspecified; K21.9 Gastro-esophageal reflux disease without esophagitis; I25.10 Atherosclerotic heart disease of native coronary artery without angina pectoris; F41.9 Anxiety disorder, unspecified; T36.8X5A Adverse effect of other systemic antibiotics, initial encounter; N20.0 Calculus of kidney; E66.811 Obesity, class 1; N40.1 Benign prostatic hyperplasia with lower urinary tract symptoms; Z96.0 Presence of urogenital implants; Z79.82 Long term (current) use of aspirin; Z79.899 Other long term (current) drug therapy
CPT/HCPCS: 36415; 71045; 80048; 80053; 81001; 83605; 83735; 84100; 85025; 87040; 87077; 87086; 87088; 87186; 87493; 87506; 87631; 96365; 97162; 97166; 99285; A4216

== ENCOUNTER 2025-01-04 12:40 | Inpatient (IN) | payer MEDICARE, OTHER, SELFPAY ==
[2025-01-04] VITALS (9 sets, daily range): BP systolic 124–180; BP diastolic 59–87; PULSE 63–93; RESP 18–33; TEMP 36.8–39.4; O2SAT 94–99; BMI 32.0; BMI 31.6
--- NOTE | 2025-01-04 13:58 | EKG12_ITS ---
Test Reason : Blood Pressure : */* mmHG Vent. Rate : 68 BPM Atrial Rate : 68 BPM P-R Int : 174 ms QRS Dur : 96 ms QT Int : 392 ms P-R-T Axes : 36 11 44 degrees QTcB Int : 416 ms Normal sinus rhythm Inferior infarct , age undetermined Abnormal ECG Confirmed by Charles Briceno ([id number]), news video editor ANAI DUTTA ([id number]) on 01/05/2025 10:15:04 AM Referred By: Bill Gary Confirmed By: Charles Briceno
--- NOTE | 2025-01-04 14:00 | EX.ED.DYSGE1 ---
HPI History of Present Illness Chief Complaint: Fever Detail of Chief Complaint: Fever greater than 101.0 ?F and rigors Informant: patient and spouse/S.O. Onset/Context/Timing Onset: Today Context: Sudden Onset Timing: Continuous Quality: Fever Location: Generalized Current Severity: Mild Maximum Severity: Moderate Worsened by: Presumed UTI Relieved by: Nothing Associated Symptoms Associated Symptoms: Thirst, dry mouth, lightheadedness, nausea Narrative Narrative: Patient is a an 79-year-old male. He was admitted to the hospital on December 25. Dr. Donald ER documentation was reviewed. Dr. Guidry's H&P was reviewed. He was seen also by infectious disease. [employer] hospitalist were consulted. Patient had lithotripsy of the stone. He was sent home on ciprofloxacin. He returned to the ER and was determined to be infected. He had a stent placed. The stent is still in place. According to patient and the stent is to be removed tomorrow. Patient was discharged on December 27. He was followed by visiting home nurse. He was on IV antibiotics until this past Thursday. He was doing well until today when he developed temperature greater than 101 ?F and rigors. He denies headache, visual, ocular auditory symptoms. He denies cardiac or respiratory symptoms. He denies abdominal distention or pain. He denies nausea, vomit or diarrhea. He endorses decreased urine output. He denies change in color of his urine or discomfort with urination. He has not noted any skin lesions. He states he does feel lightheaded when he stands and had similar symptoms when he was admitted on December 25. Prior similar symptoms: Yes Recent Illness/Hospitalization: Yes PFSH PFS Medical History Kidney stone on left side Loss of hearing Prostate disease Low iron Restless legs Hypertension History of MRSA infection Wears glasses Anxiety Arthritis High cholesterol Gastric reflux Non-smoker CPAP (continuous positive airway pressure) dependence History of pain when walking History of stress test History of echocardiogram Cardiology follow-up encounter BPH (benign prostatic hyperplasia) Dyslipidemia Nephrolithiasis Coronary artery disease Home Medications ?Medication ?Instructions ?Recorded ?Last Taken ?Type aspirin 81 mg tablet,delayed 81 mg PO QHS BLOOD THINNER 04/04/15 12/07/24 History release atorvastatin 40 mg tablet 40 mg PO QHS CHOLESTEROL 04/04/15 12/15/24 History finasteride 5 mg tablet 5 mg PO QHS URINATION 04/04/15 12/15/24 History tamsulosin 0.4 mg capsule 0.4 mg PO QHS URINATION 04/04/15 12/15/24 History doxazosin 4 mg tablet,extended 4 mg PO QHS HEART 01/23/17 12/15/24 History release 24 hr (Cardura XL) cholecalciferol (vitamin D3) 25 25 mcg PO DAILY SUPPLEMENT 12/17/21 12/15/24 History mcg (1,000 unit) capsule (Vitamin D3) gabapentin 100 mg capsule 200 mg PO QHS PAIN 12/17/21 12/15/24 History losartan 50 mg tablet 50 mg PO DAILY BP 12/17/21 12/16/24 History multivitamin 1 tab PO DAILY SUPPLEMENT 12/17/21 12/16/24 History tramadol 50 mg tablet 50 mg PO 4X/DAY PRN pain 12/08/24 12/15/24 History ibuprofen 600 mg tablet 600 mg PO Q6H PRN pain #20 tabs 12/14/24 12/16/24 Rx acetaminophen 500 mg capsule 1,000 mg PO Q4H PRN pain 12/16/24 12/16/24 History omeprazole 20 mg capsule,delayed 40 mg PO DAILY 12/16/24 12/16/24 History release venlafaxine 150 mg 150 mg PO DAILY 12/16/24 12/15/24 History capsule,extended release 24 hr levofloxacin 500 mg tablet 500 mg PO DAILY #7 tabs 12/27/24 Unknown Rx piperacillin-tazobactam 3.375 3.375 g (56.25 mL) IV Q8H 5 days 12/27/24 Unknown Rx gram/50 mL dextrose(iso-os) IV piggyback (Zosyn) Allergy/AdvReac Type Severity Reaction Status Date / Time No Known Allergies Allergy Verified 01/04/25 12:40 Surgical History S/P umbilical hernia repair, follow-up exam Hx of bilateral cataract extraction Hx of hernia repair Hx of appendectomy History of carpal tunnel release of both wrists Hx of repair of right rotator cuff Hx of repair of left rotator cuff Hx of bilateral hip replacements Social History household members: spouse Smoking Status: Never smoker ROS ROS ED Constitutional Constitutional ED: Reports chills, fever(s) and sweats; Denies subjective Eyes Eyes: Denies blurry vision or change in vision ENT ENT ED: Denies ear pain, rhinorrhea or sore throat Cardiovascular Cardiovascular: Denies chest pain, orthopnea, palpitations, paroxysmal nocturnal dyspnea or racing heartbeat Respiratory/Chest Respiratory/Chest: Denies cough, dyspnea, dyspnea on exertion, orthopnea or paroxysmal nocturnal dyspnea Gastrointestinal Gastrointestinal: Denies abdominal pain, constipation, diarrhea or vomiting Genitourinary Genitourinary ED: Reports other Details: Patient does endorse urgency. ; Denies dysuria, hematuria or urinary frequency Musculoskeletal Musculoskeletal: Denies arthralgias or myalgias Integumentary Denies rash Neurologic Neurologic: Reports weakness; Denies paresthesias Hematologic/Lymphatic Hematologic/Lymphatic: Reports systems reviewed and no addt'l complaints, except as documented EXAM Physical Exam Const Vital Signs: 01/04/25 12:40 01/04/25 14:19 01/04/25 14:19 Temperature 100.4 F H 100.4 F H Temperature Source Oral Oral Pulse Rate 93 65 Respiratory Rate 18 30 H Respiratory Effort Respiratory Pattern Blood Pressure 133/65 H 124/61 H Blood Pressure Mean 87 82 Pulse Ox 96 96 Oxygen Delivery Method Room Air Room Air Room Air 01/04/25 14:19 01/04/25 15:00 01/04/25 16:00 Temperature 99.1 F 99.1 F Temperature Source Oral Oral Pulse Rate 63 64 Respiratory Rate 27 H 29 H Respiratory Effort Normal Respiratory Pattern Normal Blood Pressure 145/60 H 145/77 H Blood Pressure Mean 88 99 Pulse Ox 97 99 Oxygen Delivery Method Room Air Room Air 01/04/25 17:00 Temperature 98.9 F Temperature Source Oral Pulse Rate 75 Respiratory Rate 32 H Respiratory Effort Respiratory Pattern Blood Pressure 180/87 H Blood Pressure Mean 118 Pulse Ox 98 Oxygen Delivery Method Room Air Positive well nourished and well developed General Appearance ED: well developed and NAD; Negative for cyanotic, diaphoretic or pallor HEENT Reports dry mucous membranes HEENT Narrative: Head is atraumatic normocephalic. Ears normal. Nares patent. Posterior pharynx is normal. Mouth ED: Yes dry mucous membranes Mouth: dry mucous membranes Eyes PERRL and EOMs intact bilaterally General Eye ED: Negative for pale conjunctiva or scleral icterus Neck no lymphadenopathy and supple Chest Wall inspection of chest normal and palpation of chest normal Resp normal respiratory effort and clear to auscultation bilaterally Cardio regular rate, regular rhythm, S1 normal heart sound and no murmurs GI normal to inspection, nondistended, normoactive bowel sounds, non-tender, non-distended and no masses; Negative for hepatosplenomegaly Back/Spine no CVA tenderness Extremity normal to inspection General Extremety ED: Negative for edema General Extremity: Negative for edema Neuro oriented x3 and CN's II-XII intact bilaterally Sensorium / Orientation: alert Psych mental status grossly normal Skin no rashes or lesions noted, no wounds and skin turgor normal General Skin Exam: Negative for jaundice or pallor MDM MDM MDM Narrative Medical decision making narrative: Concern patient has recurrent urinary tract infection. Since there was concern for Pseudomonas and has history of Pseudomonas UTI will treat with meropenem per sepsis order sets. Sepsis order set for initial workup was used as well. Since he has no respiratory symptoms no abnormal oscillatory findings legs chest x-ray was canceled. Patient is febrile in the emergency department. Prior records were reviewed and documented in the HPI narrative. History & Record Review Additional record(s) reviewed:: Prior inpatient record, Prior outpatient record, Prior ED visit and Prior labs Lab Data Attestation: I reviewed the patient's lab results. Lab results narrative: White count is slightly elevated 11.2 thousand with shift. There is no bandemia. Patient has mild anemia with an H&H 12.5 and 37.8. Comprehensive metabolic panel was an elevated BUN to creatinine ratio approximately 22-1. BUN is 26 with a creatinine of 1.18. Transaminases normal. Lactate is normal, 1.3. UA is pending. Labs: Laboratory Results - last 24 hr 01/04/25 01/04/25 14:06 15:11 WBC 11.2 H RBC 4.22 L Hgb 12.5 L Hct 37.8 L MCV 89.6 MCH 29.6 MCHC 33.1 RDW Std Deviation 40.8 RDW Coeff of Renato 12.6 Plt Count 279 MPV 9.3 Immature Gran % (Auto) 0.500 Neut % (Auto) 87.6 H Lymph % (Auto) 5.6 L [place] % (Auto) 5.5 Eos % (Auto) 0.4 Baso % (Auto) 0.4 Absolute Neuts (auto) 9.8 H Absolute Lymphs (auto) 0.62 L Nucleated RBC % 0 Sodium 134 Potassium 4.6 Chloride 101 Carbon Dioxide 21.3 Anion Gap 12 BUN 26 H Creatinine 1.18 Estim Creat Clear Calc 59.55 Est GFR (MDRD) Non-Af 62 BUN/Creatinine Ratio 22.3 H Glucose 129 H Lactic Acid 1.3 Calcium 9.9 Total Bilirubin 0.41 AST 25 ALT 36 Alkaline Phosphatase 104 Total Protein 7.7 Albumin 4.2 Globulin 3.5 Albumin/Globulin Ratio 1.2 Urine Color Yellow Urine Clarity Cloudy Urine pH 6.0 Ur Specific [place] 1.010 Urine Protein 100 H Urine Glucose (UA) Normal Urine Ketones Negative Urine Occult Blood 150 H Urine Nitrite Positive H Urine Bilirubin Negative Urine Urobilinogen Normal Ur Leukocyte Esterase 500 H Urine RBC 0-5 SEEN Urine WBC >100 SEEN Ur Squamous Epith Cells 0-5 SEEN Urine Bacteria 2+ Urine Mucus 0 SEEN Management Discussion w/another healthcare provider: Services Executive (Spoke with urologist, Dr. Guidry. Patient be admitted to his service. He was made aware of patient's history physical he is very much aware of the patient.) Discharge Plan Triage Chief Complaint: Fever ED Provider: Bill Gary Dx/Rx/DC Orders Clinical Impression: Complicated urinary tract infection, Hypertension, Obstructive sleep apnea, History of ureter stent, Failure of outpatient treatment, Rigor Prescriptions: No Action atorvastatin 40 MG tablet 40 mg PO QHS aspirin 81 MG tablet 81 mg PO QHS Patient Comments: [facility] tamsulosin 0.4 MG capsule 0.4 mg PO QHS finasteride 5 MG tablet 5 mg PO QHS Patient Comments: PROSTATE Cardura XL 4 MG tablet extended release 24hr 4 mg PO QHS multivitamin Tablet 1 tab PO DAILY losartan 50 mg tablet 50 mg PO DAILY gabapentin 100 mg capsule 200 mg PO QHS cholecalciferol (vitamin D3) [Vitamin D3] 25 mcg (1,000 unit) Capsule 25 mcg PO DAILY venlafaxine 150 mg capsule,extended release 24hr 150 mg PO DAILY Patient Comments: PT TAKES AT BEDTIME acetaminophen 500 mg capsule 1,000 mg PO Q4H PRN (Reason: pain) omeprazole 20 mg capsule,delayed release(DR/EC) 40 mg PO DAILY Zosyn in dextrose (iso-osm) 3.375 gram/50 mL piggyback 3.375 g IV Q8H 5 Days Rx Instructions: dx: pseudomonas infection. Stop date 01/02/25. Routine midline care per protocol. tramadol 50 mg tablet 50 mg PO 4X/DAY PRN (Reason: pain) ibuprofen 600 mg tablet 600 mg PO Q6H PRN (Reason: pain) Qty: 20 0RF levofloxacin 500 mg tablet 500 mg PO DAILY Qty: 7 0RF Primary Care Provider: Abe Payne Referrals: Abe Payne MD [Primary Care Provider] - Print Language: Nepali Disposition Disposition: Acute Care Hospital [facility]
[2025-01-04] MEDS: 0.9% Normal Saline (1000mL) 1,000 ML 999 ML IV (14:12)
[2025-01-04 14:21] LABS: Absolute Lymphocyte Count 0.62 X10^3/uL (0.83-4.51); Absolute Neutrophil Count 9.8 X10^3/uL (2.0-7.7); Basophil# 0.04 X10^3/uL; Basophil% 0.4 % (0-1); Eosinophil# 0.04 X10^3/uL; Eosinophils% 0.4 % (0-5); Hematocrit 37.8 % (40-54); Hemoglobin 12.5 g/dL (13.0-16.5); Lymphocyte # 0.62 X10^3/ul (0.83-4.51); Lymphocyte % 5.6 % (19-41); Mean Corp Hgb Conc 33.1 g/dL (32-36); Mean Corpuscular Hgb 29.6 pg (27.0-32.0); Mean Corpuscular Volume 89.6 fL (80-94); Mean Platelet Vol. 9.3 fl (6.2-12.0); Monocyte# 0.61 X10^3/uL; Monocyte% 5.5 % (0-10); NRBC Flagged by Analyzer 0 % (0-5); Neutrophil # 9.78 X10^3/uL (2.7-7.7); Neutrophil % 87.6 % (47-70); Platelet Count 279 K/mm3 (150-450); RBC Distribution Width CV 12.6 % (11.6-14.6); RBC Distribution Width SD 40.8 fl (35.1-43.9); Red Blood Count 4.22 M/mm3 (4.6-6.2); White Blood Count 11.2 K/mm3 (4.4-11.0)
[2025-01-04] MEDS: Cefepime HCl 2 GM in 0.9% Normal Saline (100mL MB+) 100 ML IV (14:28)
[2025-01-04 15:04] LABS: Lactic Acid 1.3 mmol/L (0.0-2.0)
[2025-01-04 15:07] LABS: ALB/GLOB Ratio 1.2 RATIO (0.9-2.4); AST(SGOT) 25 U/L (<=37); Alanine Aminotransfer ALT/SGPT 36 U/L (<=46); Albumin, Serum 4.2 g/dL (3.4-4.8); Alkaline Phosphatase 104 U/L (40-129); Anion Gap 12 (5-15); BUN 26 mg/dL (4-19); BUN/Creat Ratio 22.3 RATIO (10-20); Calcium,Total 9.9 mg/dL (7.6-11.0); Carbon Dioxide 21.3 mmol/L (21.0-32.0); Chloride 101 mmol/L (98-108); Creatinine, Serum 1.18 mg/dL (0.70-1.20); EST Glomerular Filtration Rate 62 (>60); Estimated Creatinine Clearance 59.55 ml/min (50-250); Globulin 3.5 g/dL (2.2-4.2); Glucose 129 mg/dL (70-99); Potassium 4.6 mmol/L (3.3-5.1); Protein, Total 7.7 g/dL (5.9-8.4); Sodium Level 134 mmol/L (133-145); Total Bilirubin 0.41 mg/dL (0.00-1.30)
[2025-01-04 15:17] LABS: Mucous, Urine 0 SEEN /hpf (<or=2+)
[2025-01-04 15:33] LABS: Color, Urine Yellow (Yellow); Glucose, Dipstick Normal (Normal); Ketone-Dipstick Negative (Negative); Leukocyte Esterase-Dipstick 500 /ul (Negative); Nitrite-Dipstick Positive (Negative); Occult Blood-Urine 150 /ul (Negative); Protein-Dipstick 100 mg/dl (Negative); Urine Bilirubin Dipstick Negative (Negative); Urine Clarity Cloudy (Clear); Urine Urobilinogen Normal (Normal)
[2025-01-04 17:08] LABS: Squamous Epithelial Cells - UA 0-5 SEEN /hpf (0-5); White Blood Cells >100 SEEN /hpf (0-5)
[2025-01-04 17:09] LABS: Bacteria 2+ /hpf (None Seen); Red Blood Cells-Urine 0-5 SEEN /hpf (0-5)
--- NOTE | 2025-01-04 17:26 | CT_ITS ---
PROCEDURE: ABDOMEN/PELVIS W IV CONT ONLY 01/04/2025 REASON FOR EXAM: FEVER, COMPLICATED UTI EVALUATE FOR ABSCESS TECHNIQUE: Abdomen and pelvis CT with intravenous contrast. Coronal and Sagittal reconstruction series were provided. PATIENT PREPARATION: Per protocol ORAL CONTRAST TYPE: None. AMOUNT: mL CONTRAST: Isovue 370 VOLUME: 99 mL One or more dose reduction techniques were used (e.g., Automated exposure control, adjustment of the mA and/or kV according to patient size, use of iterative reconstruction technique. RADIATION DOSE SUMMARY: CTDlvol: 6.65+ 27.97 mGy DLP: 1540.74 mGycm COMPARISON: 11/24/2024 CT. FINDINGS: Small fat containing right inguinal hernia. Degenerative changes of the spine. Severe degenerative changes of the pubic symphysis. Bilateral hip arthroplasties. Moderate atherosclerosis. Normal caliber abdominal aorta. No suspicious lymphadenopathy. Normal liver and gallbladder. Mild fatty infiltration of the pancreas. The spleen and adrenals are unremarkable. Bilateral nonobstructive intrarenal calculi. Left nephroureteral stent which terminates within the urinary bladder and the left renal pelvis. No significant surrounding hydronephrosis. Prostatomegaly. No visualized intraperitoneal abscesses (suboptimal assessment of the pelvis due to streak artifact from bilateral hip arthroplasties). CT/Abdomen/Pelvis W IV Cont ONLY IMPRESSION: No acute abnormalities. Details above. Bilateral nonobstructive nephrolithiasis. Left nephroureteral stent. Reading Location: [place] [id number]
[2025-01-04] MEDS: Acetaminophen 325 MG Tablet 650 MG PO (18:39)
--- NOTE | 2025-01-04 18:48 | CASEMGMT ---
Social Work SW met with patient and patients . Verified there has been no change since last assessment completed on 12/26/24. No further needs identified at this time. Letty Edge, GLUE SPRAYER, ZONING ASSISTANT
--- NOTE | 2025-01-04 19:31 | PCM.HP.STD ---
HPI - General General Date of Admission: 01/04/25 Date of Service: 01/04/25 Chief Complaint: UTI HPI Narrative ANUPAMA MARSH, is a 79 M who presents with fever, know h/o pseudomonas infection, was just treaeted by ID with IV antibiotics presented to ER with fevers, cT scan with stent in place and few non obstructive fragments in lower pole of left kidney, no hydro. pt admitted for further care. FOR[facility] Medical History Kidney stone on left side Loss of hearing Prostate disease Low iron Restless legs Hypertension History of MRSA infection Wears glasses Anxiety Arthritis High cholesterol Gastric reflux Non-smoker CPAP (continuous positive airway pressure) dependence History of pain when walking History of stress test History of echocardiogram Cardiology follow-up encounter BPH (benign prostatic hyperplasia) Dyslipidemia Nephrolithiasis Coronary artery disease Home Medications ?Medication ?Instructions ?Recorded ?Last Taken ?Type aspirin 81 mg tablet,delayed 81 mg PO QHS BLOOD THINNER 04/04/15 12/07/24 History release atorvastatin 40 mg tablet 40 mg PO QHS CHOLESTEROL 04/04/15 12/15/24 History finasteride 5 mg tablet 5 mg PO QHS URINATION 04/04/15 12/15/24 History tamsulosin 0.4 mg capsule 0.4 mg PO QHS URINATION 04/04/15 12/15/24 History doxazosin 4 mg tablet,extended 4 mg PO QHS HEART 01/23/17 12/15/24 History release 24 hr (Cardura XL) cholecalciferol (vitamin D3) 25 25 mcg PO DAILY SUPPLEMENT 12/17/21 12/15/24 History mcg (1,000 unit) capsule (Vitamin D3) gabapentin 100 mg capsule 200 mg PO QHS PAIN 12/17/21 12/15/24 History losartan 50 mg tablet 50 mg PO DAILY BP 12/17/21 12/16/24 History multivitamin 1 tab PO DAILY SUPPLEMENT 12/17/21 12/16/24 History tramadol 50 mg tablet 50 mg PO 4X/DAY PRN pain 12/08/24 12/15/24 History ibuprofen 600 mg tablet 600 mg PO Q6H PRN pain #20 tabs 12/14/24 12/16/24 Rx acetaminophen 500 mg capsule 1,000 mg PO Q4H PRN pain 12/16/24 12/16/24 History omeprazole 20 mg capsule,delayed 40 mg PO DAILY 12/16/24 12/16/24 History release venlafaxine 150 mg 150 mg PO DAILY 12/16/24 12/15/24 History capsule,extended release 24 hr levofloxacin 500 mg tablet 500 mg PO DAILY #7 tabs 12/27/24 Unknown Rx Allergy/AdvReac Type Severity Reaction Status Date / Time No Known Allergies Allergy Verified 01/04/25 12:40 Surgical History S/P umbilical hernia repair, follow-up exam Hx of bilateral cataract extraction Hx of hernia repair Hx of appendectomy History of carpal tunnel release of both wrists Hx of repair of right rotator cuff Hx of repair of left rotator cuff Hx of bilateral hip replacements Social History household members: spouse Smoking Status: Never smoker Vital Signs Vital Signs Vital Signs: 01/04/25 12:40 01/04/25 14:19 01/04/25 14:19 Temperature 100.4 F H 100.4 F H Temperature Source Oral Oral Pulse Rate 93 65 Respiratory Rate 18 30 H Respiratory Effort Respiratory Pattern Blood Pressure 133/65 H 124/61 H Blood Pressure Mean 87 82 Pulse Ox 96 96 Oxygen Delivery Method Room Air Room Air Room Air 01/04/25 14:19 01/04/25 15:00 01/04/25 16:00 Temperature 99.1 F 99.1 F Temperature Source Oral Oral Pulse Rate 63 64 Respiratory Rate 27 H 29 H Respiratory Effort Normal Respiratory Pattern Normal Blood Pressure 145/60 H 145/77 H Blood Pressure Mean 88 99 Pulse Ox 97 99 Oxygen Delivery Method Room Air Room Air 01/04/25 17:00 01/04/25 18:00 01/04/25 18:35 Temperature 98.9 F 103 F H 103 F H Temperature Source Oral Oral Pulse Rate 75 74 75 Respiratory Rate 32 H 33 H 25 H Respiratory Effort Respiratory Pattern Blood Pressure 180/87 H 154/77 H 154/77 H Blood Pressure Mean 118 102 102 Pulse Ox 98 96 94 Oxygen Delivery Method Room Air Room Air 01/04/25 19:00 Temperature 103 F H Temperature Source Oral Pulse Rate 74 Respiratory Rate 32 H Respiratory Effort Respiratory Pattern Blood Pressure 153/61 H Blood Pressure Mean 91 Pulse Ox 94 Oxygen Delivery Method Room Air Weight Weight: 101.3 kg Body Mass Index (BMI) 32.0 Results Lab / Micro Data 01/04/25 14:06 01/04/25 14:06 Labs: Laboratory Results - last 24 hr 01/04/25 14:06: WBC 11.2 H, RBC 4.22 L, Hgb 12.5 L, Hct 37.8 L, MCV 89.6, MCH 29.6, MCHC 33.1, RDW Std Deviation 40.8, RDW Coeff of Renato 12.6, Plt Count 279, MPV 9.3, Immature Gran % (Auto) 0.500, Neut % (Auto) 87.6 H, Lymph % (Auto) 5.6 L, [place] % (Auto) 5.5, Eos % (Auto) 0.4, Baso % (Auto) 0.4, Absolute Neuts (auto) 9.8 H, Absolute Lymphs (auto) 0.62 L, Nucleated RBC % 0, Sodium 134, Potassium 4.6, Chloride 101, Carbon Dioxide 21.3, Anion Gap 12, BUN 26 H, Creatinine 1.18, Estim Creat Clear Calc 59.55, Est GFR (MDRD) Non-Af 62, BUN/Creatinine Ratio 22.3 H, Glucose 129 H, Lactic Acid 1.3, Calcium 9.9, Total Bilirubin 0.41, AST 25, ALT 36, Alkaline Phosphatase 104, Total Protein 7.7, Albumin 4.2, Globulin 3.5, Albumin/Globulin Ratio 1.2 01/04/25 15:11: Urine Color Yellow, Urine Clarity Cloudy, Urine pH 6.0, Ur Specific [place] 1.010, Urine Protein 100 H, Urine Glucose (UA) Normal, Urine Ketones Negative, Urine Occult Blood 150 H, Urine Nitrite Positive H, Urine Bilirubin Negative, Urine Urobilinogen Normal, Ur Leukocyte Esterase 500 H, Urine RBC 0-5 SEEN, Urine WBC >100 SEEN, Ur Squamous Epith Cells 0-5 SEEN, Urine Bacteria 2+, Urine Mucus 0 SEEN Imaging Radiology Impression Abdomen/Pelvis CT 01/04/25 17:26 IMPRESSION: No acute abnormalities. Details above. Bilateral nonobstructive nephrolithiasis. Left nephroureteral stent. Reading Location: [place] [address] Assessment & Plan Assessment/Plan (1) Complicated urinary tract infection: PLAN: admit for IV antibiotics consult ID (2) History of ureter stent: PLAN: plan to take to surgery Thursday if stable to finish laser stones and remove stent. (3) Hx of renal calculi:
--- NOTE | 2025-01-04 19:34 | DCINST_ITS ---
Discharge Instructions Diet Discharge Diet: No restrictions DC O2, CPAP, BIPAP needs Home O2 Discharge instructions: No Dressing / Incision Discharge Activity: Return to Normal Activity and May Not Drive (while taking narcotic pain medications.) Dressing / Incision Call your doctor if you observe: Fever of 101 or Higher Follow Up Care Please Follow Up With: Dennis Guidry MD When: Call [phone] for an appointment Test Results: Test results from this visit will be discussed in further detail at your follow- up appointment, if applicable. Discharge Plan Admission Admit Date/Time: 01/04/25 19:13 Attending Provider: Dennis Guidry Primary Care Provider: Abe Payne Discharge Orders/Prescriptions Prescriptions: No Action atorvastatin 40 MG tablet 40 mg PO QHS aspirin 81 MG tablet 81 mg PO QHS Patient Comments: [facility] tamsulosin 0.4 MG capsule 0.4 mg PO QHS finasteride 5 MG tablet 5 mg PO QHS Patient Comments: PROSTATE Cardura XL 4 MG tablet extended release 24hr 4 mg PO QHS multivitamin Tablet 1 tab PO DAILY losartan 50 mg tablet 50 mg PO DAILY gabapentin 100 mg capsule 200 mg PO QHS cholecalciferol (vitamin D3) [Vitamin D3] 25 mcg (1,000 unit) Capsule 25 mcg PO DAILY venlafaxine 150 mg capsule,extended release 24hr 150 mg PO DAILY Patient Comments: PT TAKES AT BEDTIME acetaminophen 500 mg capsule 1,000 mg PO Q4H PRN (Reason: pain) omeprazole 20 mg capsule,delayed release(DR/EC) 40 mg PO DAILY tramadol 50 mg tablet 50 mg PO 4X/DAY PRN (Reason: pain) ibuprofen 600 mg tablet 600 mg PO Q6H PRN (Reason: pain) Qty: 20 0RF levofloxacin 500 mg tablet 500 mg PO DAILY Qty: 7 0RF Referrals / Follow Up: Abe Payne MD [Primary Care Provider] -
[2025-01-04] MEDS: 0.9% Normal Saline (1000mL) 1,000 ML 125 ML IV (20:28)
[2025-01-04] MEDS: 0.9% Normal Saline (250mL Bag) 250 ML 15 ML IV (21:13)
[2025-01-04] MEDS: Gabapentin 100 MG Capsule 200 MG PO (21:13)
[2025-01-04] MEDS: Piperacil/Tazobactam 3.375 GM in 0.9% Normal Saline (50mL MB+) 50 ML IV (21:13)
[2025-01-04] MEDS: Doxazosin 4 MG Tablet PO (21:16)
[2025-01-04] MEDS: Tamsulosin HCl 0.4 MG Capsule PO (21:16)
[2025-01-04] MEDS: Finasteride 5 MG Tablet PO (21:16)
[2025-01-04] MEDS: Atorvastatin Calcium 40 MG Tablet PO (21:16)
[2025-01-04] MEDS: Ketorolac 15 MG/ML Vial IV (21:19)
[2025-01-04] MEDS: 0.9% Saline Lock 10 ML Syringe IV (21:20)
--- OUTSIDE RECORDS SUMMARY | 2025-01-04 21:57 | XMS RPT_ITS | CCD ---
Author Organization [facility] Care Team Providers Care Osteopathic Neurologist Name Role Phone ABE WILLAMS Primary Care Unavailable ЕКАТЕРИНА, ABE Whitign Attending Unavailable MANDO, ABE Consulting Unavailable ЕКАТЕРИНА, ABE Whiting Admitting Unavailable PROVIDER, UNKNOWN Consulting Unavailable ЕКАТЕРИНА, ABE Whiting Attending Unavailable MANDO, ABE Consulting Unavailable ЕКАТЕРИНА, ABE Whiting Admitting Unavailable ЕКАТЕРИНА, ABE Whiting Primary Care Unavailable PROVIDER, UNKNOWN Consulting Unavailable KNAPIC, GERSON S Admitting Unavailable KNAPIC, GERSON Pedraza Primary Care Unavailable KNAPIC, GERSON Pedraza Attending Unavailable MANDO, ABE Consulting Unavailable PROVIDER, UNKNOWN Consulting Unavailable Abe Gilmore MD Primary Care Provider [phone] Abe Gilmore Primary Care Provider [phone] Andrez Jordan Admit Provider Dr. Andrez Jordan Referring Provider Dr. Andrez Jordan Other Provider Dr. Yemi Bolanos Attending Provider Dr. Yemi Bolanos Other Provider Dr. Joseline Jones Attending Provider Dr. Joseline Jones Other Provider Abe Gilmore MD Primary Care Provider Abe Gilmore MD Primary Care Provider Abe Gilmore MD Primary Care Provider Abe Gilmore MD Primary Care Provider Kalyani LIFTER/DRIVER.FORMING DEPARTMENT END FINDER, Destiny Unavailable Suppan LIFTER/DRIVER.FORMING DEPARTMENT END FINDERConstance Unavailable [phone] Suppan LIFTER/DRIVER.FORMING DEPARTMENT END FINDER, Constance A Unavailable Mando GARCÍA, Dr. Fish Primary Care Provider Susy GARCÍA, Dr. Tirado Attending Provider Susy GARCÍA, Dr. Tirado Referring Provider Martín SALEH, Dr. Hubbard Emergency Provider Braxton GARCÍA, Dr. Johnston Attending Provider [phone] Dr. Stevie Resendiz DO Emergency Provider Braxton GARCÍA, Dr. Johnston Admit Provider MANDO, ABE Alvares Primary Care Unavailable MANDO, ABE Alvares Attending Unavailable MANDO, ABE Alvares Referring Unavailable MANDO, ABE Alvares Primary Care Unavailable MANDO, ABE Alvares Primary Care Unavailable MANDO, ABE Alvares Primary Care Unavailable MANDO, ABE Alvares Attending Unavailable MANDO, ABE Alvares Primary Care Unavailable MANDO, ABE Alvares Referring Unavailable MANDO, ABE Alvares Primary Care Unavailable MANDO, ABE Alvares Primary Care Unavailable MANDO, ABE Alvares Primary Care Unavailable GERSON YOUNG Attending Unavailleena Gilmore MD, Dr. Fish Primary Care Provider Braxton GARCÍA, Dr. Johnston Admit Provider Mando GARCÍA, Dr. Fish Referring Provider Lexis Brown PA-C Attending Provider Carlos Eduardo GARCÍA, Graham Attending Provider Graham Thibodeaux MD Emergency Provider Brea GARCÍA, Dr. Dennis Wilkinson Attending Provider Brea GARCÍA, Dr. Dennis Wilkinson Referring Provider [phone] Lexis Brown PA-C Attending Provider Odilon GARCÍA, Dr. Harris Attending Provider [phone] Odilon GARCÍA, Dr. Harris Emergency Provider Dr. Zain Merlos DO Emergency Provider Brea GARCÍA, Dr. Dennis Wilkinson Admit Provider Dennis Guidry Attending Unavailable BreaDennis Admitting Unavailable Susan, Juliet Consulting Unavailable [facility] Primary Care Unavailable Brown, Nj R Consulting Unavailable Jre, Charityewlisabe Consulting Unavailable Jaylene, Latonia Consulting Unavailable Tickton MASTER ELECTRICIAN, Kristine Consulting Unavailable Ferullo, Delilah Consulting Unavailable Ungerer, Carolina Consulting Unavailable Radhamest PA, Ha Consulting Unavailable Lo, Anika Consulting Unavailable McGoron, Anika Consulting Unavailable Phil, Triston Consulting Unavailable BreaDennis Referring Unavailable BreaDennis Attending Unavailable [facility] Primary Care Unavailable Patricia Jainma Attending Unavailable Louislanramy, Candida Referring Unavailable [facility] Primary Care Unavailable Provider, Ed Physician Attending Unavailab le [facility] Primary Care Unavailable BreaDennis Admitting Unavailable Dick Dominguez Attending Unavailable [facility] Primary Care Unavailable Susan, Juliet Consulting Unavailable Brown, Nj R Consulting Unavailable Jre, Efewongbe Consulting Unavailable Jaylene, Latonia Consulting Unavailable Roloton MASTER ELECTRICIAN, Kristine Consulting Unavailable Ferullo, Delilah Consulting Unavailable Ungerer, Carolina Consulting Unavailable Kori ELLSWORTH, Ha Consulting Unavailable Lo, Anika Consulting Unavailable McGoron, Anika Consulting Unavailable BreaDennis dowd Consulting Unavailable Stan Stein Attending Unavailable Phil Triston Consulting Unavailable Steven Donald Attending Unavailable [facility] Primary Care Unavailable Vickie Limon Attending Unavailable [facility] Primary Care Unavailable Lexis Reyes Attending Unavailable [facility] Abe Referring Unavailable [facility] Primary Care Unavailable Louislanramy, Candida Attending Unavailable Vellanramy, Candida Referring Unavailable [facility] Primary Care Unavailable Graham Thibodeaux Attending Unavailable [facility] Primary Care Unavailable RobotRaj gomezera Attending Unavailable Robotjason, Vickie Admitting Unavailable [facility] Primary Care Unavailable Zain Merlos Attending Unavailable [facility] Primary Care Unavailable Mando GARCÍA, Dr. Fish Primary Care Provider [phone] Dr. Stevie Resendiz DO Emergency Provider Dr. Vickie Limon MD Attending Provider Dr. Vickie Limon MD Admit Provider Dr. Abe Gilmore MD Referring Provider Stephanie CHAMBERS, Lexis Attending Provider Carlos Eduardo GARCÍA, Graham Attending Provider Carlos Eduardo GARCÍA, Graham Emergency Provider Brea GARCÍA, Dr. Dennis Wilkinson Attending Provider Brea GARCÍA, Dr. Dennis Wilkinson Referring Provider [phone] Odilon GARCÍA, Dr. Harris Attending Provider Odilon GARCÍA, Dr. Harris Emergency Provider [phone] Gaurang SALEH, Dr. Pittman Attending Provider Gaurang SALEH, Dr. Pittman Emergency Provider [phone] Brea GARCÍA, Dr. Dennis Wilkinson Admit Provider Susan GARCÍA, Dr. Chung Other Provider Morales SALEH, Dr. Nj Vera Other Provider Johanna GARCÍA, Dr. Schwartz Other Provider [phone] Jaylene GARCÍA, Dr. Lincoln Other Provider Dandy MASTER ELECTRICIAN-C, Kristine Other Provider Margoth MASTER ELECTRICIAN-C, Delilah Other Provider Berkley MASTER ELECTRICIAN-C, Carolina Other Provider Ha Enrique Other Provider Anika Nolasco Other Provider Unavailable Phil GARCÍA, Dr. Goldstein Other Provider Brea GARCÍA, Dr. Dennis Wilkinson Other Provider Alberto GARCÍA, Dr. Dick Díaz Attending Provider Emil GARCÍA, Dr. Pierce Attending Provider Unavaila сергей Gary MD, Dr. Khan Referring Provider Abdirahman GARCÍA, Dr. Khan Emergency Provider Medications Current Medications Medication Drug Class(es) Dates Sig (Normalized) Sig (Original) acetaminophen 500 mg oral capsule (19 sources) Start: 12-14-2024 End: 12-16-2024 Start: 12-14-2024 End: 12-16-2024 take 1 capsule by mouth every four hours as needed for pain Acetaminophen 500 mg capsule Discontinued 500 mg PO Q4H as needed for pain December 14, 2024 12:00am December 16, 2024 9:36am Start: 12-21-2021 End: 10-26-2024 Start: 12-21-2021 take 3000 mg by mout h every eight hours Acetaminophen Active 1000 MG PO EVERY 8 HOURS December 21, 2021 12:00am Do not take more than 3000 mg Tylenol in a 24-hour period. acetaminophen 325 mg / HYDROcodone bitartrate 5 mg oral tablet (1 source) Opioid Agonist Start: 12-13-2021 take 1 tablet by mouth every four hours as needed Hydrocodone-Acetaminophen Active 1 TABLET PO EVERY 4 HOURS NEEDED 04 27December 13, 2021 1:03pm aspirin 81 mg delayed release oral tablet (20 sources) Platelet Aggregation Inhibitor, Nonsteroidal Anti-inflammator y Drug Start: 12-26-2010 Comment on above: Take 1 tablet by noelle th once daily. atorvastatin 40 mg oral tablet (20 sources) HMG-CoA Reductase Inhibitor Start: 04-04-2015 End: 07-07-2024 Comment on above: Take 1 tablet by noelle th daily at bedtime. cholecalciferol 0.025 mg oral capsule (12 sources) Vitamin D Start: 12-17-2021 clotrimazole 10 mg/ml topical cream (1 source) Azole Antifungal Start: 07-24-2022 End: 08-07-2022 clotrimazole (LOTRIMIN, CLOTRIM) 1 % cream Apply 1 application to affected area twice daily for 14 days. Can be used 2-4 weeks...... use for 3 days after area is completley healed up. 28 g 0 07/24/2022 08/07/2022 Active Comment on above: Apply 1 application to affected area twice daily for 14 days. Can be used 2-4 weeks...... use for 3 days after area is completley healed up. doxazosin 4 mg oral tablet (20 sources) alpha-Adrenergic Jordana Start: 08-05-2021 End: 04-27-2024 take 1 tablet by mouth once daily doxazosin (CARDURA) 4 mg tablet Indications: Essential hypertension , BPH with urinary obstruction Take 1 tablet by mouth once daily. 90 tablet 3 04/27/2024 Active Start: 01-25-2020 End: 01-22-2021 take 1 tablet by mouth once daily doxazosin (CARDURA) 4 mg tablet Indications: Essential hypertension , BPH with urinary obstruction Take 1 tablet by mouth once daily. 90 tablet 3 01/25/2020 01/22/2021 Discontinued Start: 01-23-2017 take 1 tablet by noelle th every twenty-four hours at bedtime Doxazosin (Cardura Xl) 4 MG tablet extended release 24hr Active 4 mg PO AT BEDTIME January 23, 2017 12:00am Start: 01-23-2017 take 1 tablet by noelle th once daily Doxazosin (Cardura Xl) 4 MG tablet extended release 24hr Active 4 mg PO DAILY January 23, 2017 12:00am Start: 04-04-2015 End: 04-05-2015 Comment on above: Take 1 tablet by noelle th once daily. ferrous sulfate 325 mg oral tablet (15 sources) Start: 04-23-2022 End: 07-22-2022 take 1 tablet by mouth twice daily at mealtime ferrous sulfate 325 mg (65 mg iron) tablet Indications: Iron deficiency anemia, unspecified iron deficiency anemia type Take 1 tablet by mouth twice daily with meals. 60 tablet 2 04/23/2022 07/22/2022 Active Start: 12-21-2021 End: 10-26-2024 Ferrous Sulfate (Ferosul) 32 5 mg (65 mg iron) Tablet Discontinued 325 mg PO 1200,1700 28 December 21, 2021 12:00am October 26, 2024 8:50pm Comment on above: Take 1 tablet by noelle th twice daily with meals. finasteride 5 mg oral tablet (20 sources) 5-alpha Reductase Inhibitor Start: End: Comment on above: Take 1 tablet by noelle th once daily. gabapentin 100 mg oral capsule (20 sources) Anti-epileptic Agent Start: take 2 capsules by mouth at bedtime Gabapentin 100 mg capsule Active 200 mg PO AT BEDTIME December 17, 2021 12:00am Start: 12-17-2021 take 200 mg by mouth at bedtim e Gabapentin Active 200 MG PO AT BEDTIME December 17, 2021 12:00am Start: 01-28-2021 Comment on above: Take 100 mg by mouth daily at bedtime. ibuprofen 600 mg oral tablet (4 sources) Nonsteroidal Anti-inflammatory Drug Start: 12-14-2024 levoFLOXacin 500 mg oral tab let (14 sources) Quinolone Antimicrobial Start: 12-27-2024 Start: 04-07-2015 End: 04-15-2015 lisinopril 10 mg oral tablet (1 source) Angiotensin Converting Enzyme Inhibitor Start: 01-23-2017 take 1 tablet by mouth once daily Lisinopril (Prinivil) 10 MG tablet Active 10 MG PO DAILY January 23, 2017 12:12pm losartan potassium 50 mg oral tablet (20 sources) Angiotensin 2 Receptor Jordana Start: 08-05-2021 End: 04-27-2024 Start: 09-15-2020 End: 01-22-2021 take 1 tablet by mouth once daily losartan (COZAAR) 50 mg tablet Take 1 tablet by mouth once daily. 30 tablet 5 09/15/2020 01/22/2021 Discontinued Comment on above: Take 1 tablet by noelle th once daily. Multivitamin preparation (6 sources) Start: 12-17-2021 take 1 tablet by mouth once daily Multivitamin Active 1 TABLET PO DAILY December 17, 2021 2:59pm Start: 12-17-2021 take 1 tablet by noelle th once daily Multivitamin Active 1 TABLET PO DAILY December 16, 2021 11:00pm Start: 12-17-2021 take 1 tablet by noelle th once daily Multivitamin Active 1 TABLET PO DAILY December 17, 2021 12:00am Multivitamin Tablet (5 sources) Start: 12-17-2021 Multivitamin T ablet Active 1 {tbl} PO DAILY December 17, 2021 12:00am omeprazole 20 mg delayed release oral capsule (20 sources) Proton Pump Inhibitor Start: 12-16-2024 Start: 05-22-2020 End: 07-11-2024 take 2 capsules by mouth once daily before breakfast omeprazole (PRILOSEC) 20 mg capsule Indications: Gastroesophageal reflux disease without esophagitis TAKE 2 CAPSULES BY MOUTH DAILY BEFORE BREAKFAST. 180 capsule 3 07/11/2024 Active Start: 01-23-2017 End: 12-16-2024 Comment on above: TAKE 2 CAPSULES BY M OUTH DAILY BEFORE BREAKFAST. perflutren lipid microspheres 1.3 mL in NaCl (PF) 0.9% 10 mL injection (DEFINITY) (20 sources) Start: 06-24-2023 End: 07-01-2023 perflutren lipid microspheres 1.3 mL in NaCl (PF) 0.9% 10 mL injection (DEFINITY) Start: 11-19-2021 End: 02-18-2023 perflutren lipid microsphere s 1.3 mL in NaCl (PF) 0.9% 10 mL injection (DEFINITY) Start: 11-12-2020 End: 02-11-2022 perflutren lipid microsphere s 1.3 mL in NaCl (PF) 0.9% 10 mL injection (DEFINITY) 125 ml sodium chloride 9 mg/ ml prefilled syringe (20 sources) Start: 06-24-2023 End: 07-01-2023 sodium chloride 0.9 % (flush ) 10 mL (BD POSIFLUSH) Start: 11-12-2020 End: 02-18-2023 sodium chloride 0.9 % (flush ) 10 mL (BD POSIFLUSH) tamsulosin hydrochloride 0.4 mg oral capsule (20 sources) alpha-Adrenergic Jordana Start: 04-04-2015 Comment on above: Take 0.4 mg by mouth daily at bedtime. traMADol hydrochloride 50 mg oral tablet (20 sources) Opioid Agonist Start: 12-08-2024 Start: 10-26-2024 End: 11-09-2024 Start: 10-26-2024 End: 11-09-2024 take 1 tablet by mouth every six hours as needed for pain Tramadol 50 mg tablet Discontinued 50 mg PO EVERY 6 HOURS as needed for pain October 26, 2024 12:00am November 09, 2024 2:36pm Start: 12-17-2021 End: 12-21-2021 Comment on above: Take 50 mg by mouth four times daily. 24 hr venlafaxine 150 mg extended release oral capsule (20 sources) Serotonin and Norepinephrine Reuptake Inhibitor Start: 12-16-2024 Start: 08-05-2021 End: 04-27-2024 take 1 capsule by mouth once daily venlafaxine ER (EFFEXOR XR) 150 mg 24 hr capsule Take 1 capsule by mouth once daily. 90 capsule 3 04/27/2024 Active Start: 08-31-2020 End: 11-26-2020 take 1 capsule by mouth once daily venlafaxine ER (EFFEXOR XR) 150 mg 24 hr capsule Take 1 capsule by mouth once daily. 90 capsule 08/31/2020 11/26/2020 Discontinued Start: 04-04-2015 take 1 capsule by mo uth at bedtime Venlafaxine Xr (Effexor Xr) 75 MG capsule Active 75 MG PO AT BEDTIME April 04, 2015 4:56pm Start: 04-04-2015 End: 12-16-2024 Start: 04-04-2015 End: 12-16-2024 take 2 capsules by mouth at bedtime Venlafaxine Xr (Effexor Xr) 75 MG capsule Discontinued 150 mg PO AT BEDTIME April 04, 2015 12:00am December 16, 2024 9:36am Comment on above: Take 1 capsule by mo uth once daily. Zinc (11 sources) Start: 12-17-2021 take 50 mg by mouth once daily Zinc Active 50 MG PO DAILY December 17, 2021 2:59pm Start: 12-17-2021 End: 10-26-2024 take 1 tablet by mouth once daily Zinc 50 mg Tablet Discontinued 50 mg PO DAILY December 17, 2021 12:00am October 26, 2024 8:51pm Start: 12-17-2021 [facility] Zinc 50 mg Tablet Active 50 mg PO DAILY December 17, 2021 12:00am Start: 12-17-2021 take 50 mg by mouth once daily Zinc Active 50 MG PO DAILY December 16, 2021 11:00pm Start: 12-17-2021 take 50 mg by mouth once daily Zinc Active 50 MG PO DAILY December 17, 2021 12:00am Completed/Discontinued Medications Medication Drug Class(es) Dates Sig (Normalized) Sig (Original) cefpodoxime 100 mg oral tablet (13 sources) Cephalosporin Antibacterial Start: 04-05-2015 End: 04-07-2015 Start: 04-05-2015 End: 04-07-2015 take 200 mg by mouth twice daily Cefpodoxime Discontinued 200 MG PO TWICE A DAY April 05, 2015 12:00am April 07, 2015 11:39am cephalexin 500 mg oral capsu le (3 sources) Cephalosporin Antibacterial Start: 12-25-2024 End: 12-27-2024 chlorthalidone 50 mg oral ta blet (13 sources) Thiazide-like Diuretic Start: 04-05-2015 End: 04-15-2015 Start: 04-05-2015 End: 04-15-2015 take 25 mg by mouth once daily Chlorthalidone Discontinued 25 MG PO DAILY April 05, 2015 12:00am April 15, 2015 10:47am ciprofloxacin 500 mg oral ta blet (16 sources) Quinolone Antimicrobial Start: 12-16-2024 End: 12-25-2024 Start: 04-04-2015 End: 04-05-2015 docusate sodium 50 mg / sushant osides, [facility] living 8.6 mg oral tablet (12 sources) Start: 12-21-2021 End: 10-26-2024 Start: 12-21-2021 End: 10-26-2024 Sennosides-Docusate Sodium ( Stool Softener-Stimulant Laxat) 8.6-50 mg Tablet Discontinued 2 {tbl} PO TWICE A DAY December 21, 2021 12:00am October 26, 2024 8:51pm Take until first bowel movement, then as needed doxycycline monohydrate 100 mg oral capsule (12 sources) Tetracycline-class Drug Start: 12-21-2021 End: 10-26-2024 folic acid 1 mg oral tablet (12 sources) Start: 12-21-2021 End: 10-26-2024 Soraida (Zingiber Officinalis) (12 sources) Non-Standardized Food Allergenic Extract, Non-Standardized Plant Allergenic Extract Start: 12-17-2021 End: 12-21-2021 take 500 mg by mouth once daily Soraida (Zingiber Officinalis) Discontinued 500 MG PO DAILY December 17, 2021 2:59pm December 21, 2021 11:25am Start: 12-17-2021 End: 12-21-2021 Start: 12-17-2021 End: 12-21-2021 take 1 capsule by mouth once daily Soraida (Zingiber Officinalis) 500 mg Capsule Discontinued 500 mg PO DAILY December 17, 2021 12:00am December 21, 2021 11:25am Start: 12-17-2021 End: 12-21-2021 take 500 mg by mouth once daily Soraida (Zingiber Offic inalis) Discontinued 500 MG PO DAILY December 16, 2021 11:00pm December 21, 2021 10:25am Start: 12-17-2021 End: 12-21-2021 take 500 mg by mouth once daily Soraida (Zingiber Offic inalis) Discontinued 500 MG PO DAILY December 17, 2021 12:00am December 21, 2021 11:25am [place]-3 Fatty Acids (Fish Oil) Capsule (11 sources) Start: 12-17-2021 End: 12-21-2021 take 1 capsule by mouth once daily [place]-3 Fatty Acids (Fish Oil) Capsule Discontinued 1000 MG PO DAILY December 17, 2021 2:59pm December 21, 2021 11:25am Start: 12-17-2021 End: 12-21-2021 take 1 capsule by mouth once daily [place]-3 Fatty Acids (Fish Oil) Capsule Discontinued 1000 mg PO DAILY December 17, 2021 12:00am December 21, 2021 11:25am Start: 12-17-2021 End: 12-21-2021 take 1 capsule by mouth once daily [place]-3 Fatty Acids (Fish Oil) Capsule Discontinued 1000 MG PO DAILY December 16, 2021 11:00pm December 21, 2021 10:25am Start: 12-17-2021 End: 12-21-2021 take 1 capsule by mouth once daily [place]-3 Fatty Acids (Fish Oil) Capsule Discontinued 1000 MG PO DAILY December 17, 2021 12:00am December 21, 2021 11:25am oxyCODONE hydrochloride 5 mg oral tablet (12 sources) Opioid Agonist Start: 12-21-2021 End: 10-26-2024 piperacillin 3000 mg / tazobactam 375 mg injection (1 source) Penicillin-class Antibacterial, beta Lactamase Inhibitor Start: 12-27-2024 End: 01-04-2025 predniSONE 10 mg oral tablet (8 sources) Start: 01-28-2023 End: 10-26-2024 rivaroxaban 10 mg oral table t (18 sources) Factor Xa Inhibitor Start: 12-21-2021 End: 10-26-2024 sildenafil 100 mg oral table t (20 sources) Phosphodiesterase 5 Inhibitor Start: 04-04-2015 End: 10-26-2024 Start: 09-19-2014 End: 10-22-2022 take 1 tablet by mouth every twenty-four hours as needed sildenafil (VIAGRA) 100 mg tablet Indications: ED (erectile dysfunction) Take 1 tablet by mouth. TAKE 30-60 MINUTES BEFORE SEXUAL INTERCOURSE NEEDED. Do not exceed 100 mg in 24 hours 6 tablet 5 09/19/2014 10/22/2022 Discontinued (Other) Comment on above: Take 1 tablet by noelle th. TAKE 30-60 MINUTES BEFORE SEXUAL INTERCOURSE NEEDED. Do not exceed 100 mg in 24 hours tiZANidine 4 mg oral tablet (17 sources) Central alpha-2 Adrenergic Agonist Start: End: 3 take 1 tablet by mouth every eight hours as needed tiZANidine (ZANAFLEX) 4 mg tablet Take 1 tablet by mouth every 8 hours as needed. 20 tablet 06/24/2019 10/22/2022 Discontinued (Other) Comment on above: Take 1 tablet by noelle th every 8 hours as needed. Turmeric extract (11 sources) Start: 2 End: 2 take 400 mg by mouth once daily Turmeric Discontinued 400 MG PO DAILY December 17, 2021 2:59pm December 21, 2021 11:25am Start: 12-17-2021 End: 12-21-2021 take 1 capsule by mouth once daily Turmeric 400 mg Capsule Discontinued 400 mg PO DAILY December 17, 2021 12:00am December 21, 2021 11:25am Start: 12-17-2021 End: 12-21-2021 take 400 mg by mouth once daily Turmeric Discontinued 400 MG PO DAILY December 16, 2021 11:00pm December 21, 2021 10:25am Start: 12-17-2021 End: 12-21-2021 take 400 mg by mouth once daily Turmeric Discontinued 400 MG PO DAILY December 17, 2021 12:00am December 21, 2021 11:25am (6 sources) Start: 12-21-2021 End: 10-26-2024 Start: 12-17-2021 Start: 12-17-2021 End: 10-26-2024 Start: 12-17-2021 End: 12-21-2021 Start: 12-17-2021 End: 12-21-2021 Start: 01-23-2017 Problems Active Problems Problem Classification Problem Date Documented Date Episodic/Chronic Abdominal hernia (20 sources) Umbilical hernia; Translations: [Umbilical hernia without obstruction or gangrene] Onset: 11-14-2009 02-13-2010 Episodic Abdominal pain (15 sources) Left flank pain; Translations: [Unspecified abdominal pain] Onset: 01-25-2015 Resolved: 04-04-2016 04-04-2016 Episodic Adjustment disorders (20 sources) Adjustment disorder with depressed mood; Translations: [Adjustment disorder with depressed mood] Onset: 07-10-2006 02-13-2010 Chronic Allergic reactions (8 sources) Contact dermatitis due to poison francois; Translations: [Allergic contact dermatitis due to plants, except food] 01-28-2023 Episodic Calculus of urinary tract (20 sources) Recurrent kidney stone; Translations: [Calculus of kidney] Onset: 01-25-2015 Resolved: 10-23-2021 01-25-2015 Episodic Complications of surgical procedures or medical care (13 sources) Periprosthetic fracture; Translations: [Periprosthetic fracture around internal prosthetic right hip joint, initial encounter] 12-21-2021 Episodic Coronary atherosclerosis and other heart disease (20 sources) Coronary arteriosclerosis; Translations: [Atherosclerotic heart disease of [place] coronary artery without angina pectoris] Onset: 01-02-2011 Chronic Comment on above: m Crushing injury or internal injury (13 sources) Intra-abdominal hematoma; Translations: [Intra-abdominal hematoma] 06-24-2019 Episodic Deficiency and other anemia (2 sources) Anemia; Translations: [Anemia, unspecified] Episodic Deficiency and other anemia (1 source) Iron deficiency anemia; Translations: [Iron deficiency anemia, unspecified] Episodic Diabetes mellitus without complication (8 sources) Hyperglycemia; Translations: [Hyperglycemia, unspecified] Onset: 04-12-2024 Episodic Disorders of lipid metabolism (20 sources) Mixed hyperlipidemia; Translations: [Mixed hyperlipidemia] Onset: 07-21-2008 Chronic Esophageal disorders (20 sources) Gastroesophageal reflux disease without esophagitis; Translations: [Gastro-esophageal reflux disease without esophagitis] Chronic Essential hypertension (20 sources) Essential hypertension; Translations: [Essential (primary) hypertension] Onset: 07-10-2006 Chronic Comment on above: CONTROLLED ON MED Genitourinary symptoms and ill-defined conditions (5 sources) Blood in urine; Translations: [Hematuria, unspecified] Onset: 11-30-2024 12-02-2024 Episodic Hyperplasia of prostate (20 sources) Benign prostatic hypertrophy with outflow obstruction; Translations: [Benign prostatic hyperplasia with lower urinary tract symptoms] Onset: 07-10-2006 Resolved: 10-23-2021 Chronic Immunizations and screening for infectious disease (4 sources) Viral screening status; Translations: [Encounter for screening for other viral diseases] Episodic Malaise and fatigue (6 sources) Asthenia; Translations: [Weakness] Onset: 01-02-2025 12-25-2024 Episodic Mycoses (1 source) Dermatophytosis; Translations: [Dermatophytosis, unspecified] Episodic Nutritional deficiencies (1 source) Vitamin D deficiency; Translations: [Vitamin D deficiency, unspecified] Chronic Open wounds of extremities (1 source) Laceration of right knee; Translations: [Laceration without foreign body, right knee, initial encounter] 02-03-2024 Episodic Osteoarthritis (20 sources) Degenerative joint disease involving multiple joints; Translations: [Polyosteoarthritis, unspecified] Onset: 07-29-2007 01-17-2019 Chronic Other aftercare (8 sources) History of repair of umbilical hernia; Translations: [Encounter for follow-up examination after completed treatment for conditions other than malignant neoplasm] 11-09-2024 Episodic Other circulatory disease (20 sources) Disorder of thoracic aorta; Translations: [Other specified disorders of arteries and arterioles] Onset: 07-12-2019 Chronic Other connective tissue disease (12 sources) History of revision of right total hip arthroplasty; Translations: [Presence of right artificial hip joint] 12-21-2021 Chronic Other connective tissue disease (2 sources) Presence of right artificial hip joint; Translations: [Hip joint replacement] Chronic Other lower respiratory disease (2 sources) Dyspnea; Translations: [Shortness of breath] Episodic Other lower respiratory disease (1 source) Cough; Translations: [Cough] 09-17-2020 Episodic Other male genital disorders (20 sources) Other male erectile dysfunction; Translations: [Impotence of organic origin] Onset: 11-14-2009 Resolved: 04-25-2021 03-28-2015 Chronic Other nervous system disorders (4 sources) Unable to walk; Translations: [Difficulty in walking, not elsewhere classified] 12-25-2024 Chronic Other nervous system disorders (2 sources) Difficulty in walking, not elsewhere classified; Translations: [Difficulty in walking, not elsewhere classified] Onset: 01-02-2025 Chronic Other nutritional; endocrine; and metabolic disorders (20 sources) Metabolic syndrome X; Translations: [Metabolic syndrome] Onset: 11-29-2010 Chronic Other nutritional; endocrine; and metabolic disorders (20 sources) Obese class I; Translations: [Obesity, unspecified] Onset: 01-17-2019 01-17-2019 Chronic Residual codes; unclassified (20 sources) Obstructive sleep apnea syndrome; Translations: [Obstructive sleep apnea (adult) (pediatric)] Onset: 09-23-2018 Chronic Residual codes; unclassified (2 sources) Obstructive sleep apnea (adult) (pediatric); Translations: [Obstructive sleep apnea (adult)(pediatric)] Chronic Residual codes; unclassified (8 sources) History of insertion of stent into ureter; Translations: [Other postprocedural status] 12-24-2024 Episodic Residual codes; unclassified (1 source) Other specified health status; Translations: [Failure of outpatient treatment] 01-04-2025 Episodic Residual codes; unclassified (1 source) Rigor; Translations: [Other general symptoms and signs] 01-04-2025 Episodic Screening and history of mental health and substance abuse codes (3 sources) Patient encounter status; Translations: [Encounter for screening for depression] 04-22-2024 Episodic Spondylosis; intervertebral disc disorders; other back problems (1 source) Acute low back pain; Translations: [Acute right-sided low back pain without sciatica] 09-02-2024 Episodic Superficial injury; contusion (20 sources) Hematoma of abdominal wall; Translations: [Contusion of abdominal wall, initial encounter] Onset: 06-23-2019 Resolved: 10-23-2021 06-24-2019 Episodic Urinary tract infections (14 sources) Urinary tract infectious disease; Translations: [Urinary tract infection, site not specified] Onset: 01-02-2025 12-24-2024 Episodic Past or Other Problems Problem Classification Problem Date Documented Da te Episodic/Chronic Administrative/social admission (20 sources) Advance directive discussed with patient; Translations: [Other specified counseling] Onset: 10-23-2021 Episodic E Codes: Fall (14 sources) Fall from ladder; Translations: [Fall on and from ladder, initial encounter] Onset: 06-23-2019 Resolved: 06-23-2019 06-23-2019 Episodic Gastritis and duodenitis (20 sources) Acute gastritis; Translations: [Acute gastritis without bleeding] Onset: 10-10-2008 Resolved: 05-19-2023 02-13-2010 Episodic Other and unspecified benign neoplasm (20 sources) Benign neoplasm of colon; Translations: [Benign neoplasm of colon, unspecified] Onset: 10-10-2008 02-13-2010 Episodic Other and unspecified benign neoplasm (14 sources) History of polyp of colon; Translations: [Personal history of colonic polyps] Onset: 10-10-2008 Resolved: 04-04-2016 04-04-2016 Episodic Other disorders of stomach and duodenum (14 sources) Disorder of function of stomach; Translations: [Other diseases of stomach and duodenum] Onset: 10-10-2008 Resolved: 04-04-2016 04-04-2016 Episodic Other gastrointestinal disorders (14 sources) Heartburn; Translations: [Heartburn] Onset: 10-10-2008 Resolved: 04-04-2016 04-04-2016 Episodic Other injuries and conditions due to external causes (14 sources) Closed injury of head; Translations: [Unspecified injury of head, initial encounter] Onset: 06-23-2019 Resolved: 04-25-2021 04-25-2021 Episodic Other non-traumatic joint disorders (14 sources) Pain in right shoulder; Translations: [Pain in joint, shoulder region] Onset: 11-29-2010 Resolved: 09-15-2020 09-15-2020 Episodic Other screening for suspected conditions (not mental disorders or infectious disease) (14 sources) Raised prostate specific antigen; Translations: [Elevated prostate specific antigen [PSA]] Onset: 01-25-2015 Resolved: 04-25-2021 04-25-2021 Episodic Pneumonia (except that caused by tuberculosis or sexually transmitted disease) (14 sources) Infective pneumonia; Translations: [Pneumonia, unspecified organism] Onset: 10-07-2018 Resolved: 01-17-2019 01-17-2019 Episodic Residual codes; unclassified (1 source) Illness, unspecified; Translations: [Illness, unspecified] Onset: 02-19-2024 Episodic Syncope (17 sources) Syncope; Translations: [Syncope and collapse] Onset: 06-23-2019 Resolved: 04-25-2021 Episodic Unclassified (14 sources) Elevated blood pressure; Translations: [Elevated BP] Onset: 01-02-2011 Resolved: 10-23-2021 10-23-2021 Results Test Name Value Interpretation Reference Range Facility Absolute lymphocyte countOrd ered By: Bill Gary on 01-04-2025 Lymphocytes Auto (Unsp spec) [#/Vol] 0.62 10*3/uL Low 0.83-4.51 [facility] Anion gap in Serum or Plasma Ordered By: Bill Gary on 01-04-2025 Anion gap [Moles/Vol] 12 mmol/L 5-15 [facility] Automated lymphocyte count a s percentage of total leukocytesOrdered By: Bill Gary on 01-04-2025 Lymphocytes/100 WBC Auto (Unsp spec) 5.6 % Low 19-41 [facility] BUN/creatinine ratioOrdered By: Bill Gary on 01-04-2025 Urea nitrogen/Creatinine [Mass ratio] 22.3 mg/mg High 10-20 [facility] Basophil percentageOrdered B y: Bill Gary on 01-04-2025 Basophils/100 WBC (Bld) 0.4 % 0-1 [facility] Bilirubin Test strip Ql (U)O rdered By: Bill Gary on 01-04-2025 Bilirubin Ql (U) Negative Negative [facility] Bilirubin, totalOrdered By: Bill Gary on 01-04-2025 Bilirubin [Mass/Vol] 0.41 mg/dL 0.00-1.30 [facility] Carbon dioxide, total [Moles /volume] in Central venous bloodOrdered By: Bill Gary on 01-04-2025 CO2 [Moles/Vol] 21.3 mmol/L 21.0-32.0 [facility] Chloride assayOrdered By: o Gary on 01-04-2025 Chloride [Moles/Vol] 101 mmol/L 98-108 [facility] Eosinophil percentageOrdered By: Ibll Gary on 01-04-2025 Eosinophils/100 WBC (Bld) 0.4 % 0-5 [facility] Erythrocyte distribution wid th ratioOrdered By: Bill Gary on 01-04-2025 Erythrocyte distribution width (RBC) [Ratio] 12.6 % 11.6-14.6 [facility] Erythrocyte distribution wid th standard deviationOrdered By: Bill Gary on 01-04-2025 Erythrocyte distribution width (RBC) [Ratio] 40.8 fl 35.1-43.9 [facility] Glomerular filtration rate ( GFR) estimation/1.73 sq m using serum, plasma, or whole bOrdered By: Bill Gary on 01-04-2025 GFR/1.73 sq M.predicted among non-blacks MDRD (S/P/Bld) [Vol rate/Area] 62 mL/min/{1.73_m2} >60 [facility] Hematocrit Auto (Bld) [Volum e fraction]Ordered By: Bill Gary on 01-04-2025 Hematocrit (Bld) [Volume fraction] 37.8 % Low 40-54 [facility] Hemoglobin measurementOrdere d By: Bill Gary on 01-04-2025 Hemoglobin (Bld) [Mass/Vol] 12.5 g/dL Low 13.0-16.5 [facility] Immature granulocytes/100 WB C Auto (Bld)Ordered By: Bill Gary on 01-04-2025 Immature granulocytes/100 WBC (Bld) 0.500 % 0.0-0.9 [facility] Ketones Test strip Ql (U)Ord ered By: Bill Gary on 01-04-2025 Ketones Ql (U) Negative Negative [facility] MCV (mean corpuscular volume ) determinationOrdered By: Bill Gary on 01-04-2025 MCV (RBC) [Entitic vol] 89.6 fL 80-94 [facility] Mean corpuscular hemoglobin (MCH) determinationOrdered By: Bill Gary on 01-04-2025 MCH (RBC) [Entitic mass] 29.6 pg 27.0-32.0 [facility] Monocyte percentageOrdered B y: Bill Gary on 01-04-2025 Monocytes/100 WBC (Bld) 5.5 % 0-10 [facility] Mucus LM Ql (Urine sed)Order ed By: Bill Gary on 01-04-2025 Mucus Ql (Urine sed) 0 SEEN /hpf [facility] Neutrophil percentageOrdered By: Blil Gary on 01-04-2025 Neutrophils/100 WBC (Bld) 87.6 % High 47-70 [facility] Nitrite Test strip Ql (U)Ord ered By: Bill Gary on 01-04-2025 Nitrite Ql (U) Positive High Negative [facility] No Panel InformationOrdered By: Bill Gary on 01-04-2025 25 U/L <38 [facility] Platelet countOrdered By: Sarah Gary on 01-04-2025 Platelets (Bld) [#/Vol] 279 10*3/uL 150-450 [facility] Potassium measurement (mass/ volume)Ordered By: Bill Gary on 01-04-2025 Potassium (Unsp spec) [Mass/Vol] 4.6 mmol/L 3.3-5.1 [facility] Protein Test strip Ql (U)Ord ered By: Bill Gary on 01-04-2025 Protein Ql (U) 100 mg/dl High Negative [facility] RBC Auto (Bld) [#/Vol]Ordere d By: Bill Gary on 01-04-2025 RBC (Bld) [#/Vol] 4.22 10*6/uL Low 4.6-6.2 [facility] Serum creatinine measurement (mass/volume)Ordered By: Bill Gary on 01-04-2025 Creatinine [Mass/Vol] 1.18 mg/dL 0.70-1.20 [facility] Serum globulin measurementOr dered By: Bill Gary on 01-04-2025 Globulin (S) [Mass/Vol] 3.5 g/dL 2.2-4.2 [facility] Serum glucose measurement (m ass/volume)Ordered By: Bill Gary on 01-04-2025 Glucose [Mass/Vol] 129 mg/dL High 70-99 [facility] Serum or plasma alanine [place] otransferase (ALT) measurementOrdered By: Bill Gary on 01-04-2025 ALT [Catalytic activity/Vol] 36 U/L <47 [facility] Serum or plasma albumin ibrahima urement (mass/volume)Ordered By: Bill Gary on 01-04-2025 Albumin [Mass/Vol] 4.2 g/dL 3.4-4.8 [facility] Serum or plasma albumin/glob ulin mass ratioOrdered By: Bill Gary on 01-04-2025 Albumin/Globulin [Mass ratio] 1.2 {ratio} 0.9-2.4 [facility] Serum or plasma alkaline [place] sphatase measurementOrdered By: Bill Gary on 01-04-2025 ALP [Catalytic activity/Vol] 104 U/L 40-129 [facility] Serum or plasma calcium ibrahima urement (mass/volume)Ordered By: Bill Gary on 01-04-2025 Calcium [Mass/Vol] 9.9 mg/dL 7.6-11.0 [facility] Serum or plasma urea nitroge n measurement (mass/volume)Ordered By: Bill Gary on 01-04-2025 Urea nitrogen [Mass/Vol] 26 mg/dL High 4-19 [facility] Sodium levelOrdered By: Bill Gary on 01-04-2025 Sodium [Moles/Vol] 134 mmol/L 133-145 [facility] Squamous epithelial cells de tection in urine sediment by light microscopyOrdered By: Bill Gary on 01-04-2025 Epithelial cells.squamous LM Ql (Urine sed) 0-5 SEEN /hpf 0-5 [facility] Total proteinOrdered By: Bill Gary on 01-04-2025 Protein [Mass/Vol] 7.7 g/dL 5.9-8.4 [facility] Urine clarityOrdered By: Bill Gary on 01-04-2025 Clarity (U) Cloudy Clear [facility] Urine color determinationOrd ered By: Bill Gary on 01-04-2025 Color (U) Yellow Yellow [facility] Urine glucose detectionOrder ed By: Bill Gary on 01-04-2025 Glucose Ql (U) Normal mg/dl Normal [facility] Urine leukocyte esterase det ection by dipstickOrdered By: Bill Gary on 01-04-2025 Leukocyte esterase Test strip Ql (U) 500 /ul High Negative [facility] Urine pHOrdered By: Bill laureano on 01-04-2025 pH (U) 6.0 [pH] 5.0 - 8.0 [facility] Urine sediment bacteria coun t by microscopy (number/high power field)Ordered By: Billgeorgi Gary on 01-04-2025 Bacteria LM.HPF (Urine sed) [#/Area] 2 /[HPF] None Seen [facility] Urine specific gravity measu rementOrdered By: Billgeorgi Gary on 01-04-2025 Specific gravity (U) [Rel density] 1.010 1.002-1.030 [facility] Urine urobilinogen measureme ntOrdered By: Billgeorgi Gary on 01-04-2025 Urobilinogen Ql (U) Normal mg/dl Normal [facility] White blood cell (WBC) count [facility] on 01-04-2025 WBC (Bld) [#/Vol] 11.2 10*3/uL High 4.4-11.0 [facility] White blood cell countOrdere d By: Bill Gary on 01-04-2025 White blood cell count >100 SEEN /hpf 0-5 [facility] Culture, Blood (WB)on 2024 CUB Blood cultures x2, from two different sites No growth in 5 days. Normal [facility] Comment on above: Performed By: #### L 100.0100, L501.6710, L500.4050, L101.9900 #### [facility] [address] [place], [address] Basic Metabolic Profile (BMP )on 12-29-2024 BUN Normal 4-19 [facility] Comment on above: Result Comment: Canc elled via OM: Order cancelled - Patient discharged Performed By: #### L 500.2500, L100.0100 #### [facility] [address] [place], [address] BUN/CRE Normal 10-20 [facility] Comment on above: Result Comment: Canc elled via OM: Order cancelled - Patient discharged Performed By: #### L 500.2500, L100.0100 #### [facility] [address] [place], [address] Calcium Normal 7.6-11.0 [facility] Comment on above: Result Comment: Canc elled via OM: Order cancelled - Patient discharged Performed By: #### L 500.2500, L100.0100 #### [facility] [address] [place], [address] CL Normal 98-108 [facility] Comment on above: Result Comment: Canc elled via OM: Order cancelled - Patient discharged Performed By: #### L 500.2500, L100.0100 #### [facility] [address] [place], [address] CO2 Normal 21.0-32.0 [facility] Comment on above: Result Comment: Canc elled via OM: Order cancelled - Patient discharged Performed By: #### L 500.2500, L100.0100 #### [facility] [address] [place], [address] CREAT,SERUM Normal 0.70-1.20 [facility] Comment on above: Result Comment: Canc elled via OM: Order cancelled - Patient discharged Performed By: #### L 500.2500, L100.0100 #### [facility] [address] [place], [address] eGFR Normal >60 [facility] Comment on above: Result Comment: Canc elled via OM: Order cancelled - Patient discharged Performed By: #### L 500.2500, L100.0100 #### [facility] [address] [place], [address] GAP Normal 5-15 [facility] Comment on above: Result Comment: Canc elled via OM: Order cancelled - Patient discharged Performed By: #### L 500.2500, L100.0100 #### [facility] [address] [place], [address] GLU Normal 70-99 [facility] Comment on above: Result Comment: Canc elled via OM: Order cancelled - Patient discharged Performed By: #### L 500.2500, L100.0100 #### [facility] [address] [place], [address] Potassium Normal 3.3-5.1 [facility] Comment on above: Result Comment: Canc elled via OM: Order cancelled - Patient discharged Performed By: #### L 500.2500, L100.0100 #### [facility] [address] [place], [address] Basic Metabolic Profile (BMP) Normal 133-145 [facility] Comment on above: Result Comment: Canc elled via OM: Order cancelled - Patient discharged Performed By: #### L 500.2500, L100.0100 #### [facility] [address] [place], [address] CBC W/Diff, Automatedon 06-0 -2024 Absolute Neut Normal 2.0-7.7 [facility] Comment on above: Result Comment: Canc elled via OM: Order cancelled - Patient discharged Performed By: #### L 500.2500, L100.0100 #### [facility] [address] [place], [address] HCT Normal 40-54 [facility] Comment on above: Result Comment: Canc elled via OM: Order cancelled - Patient discharged Performed By: #### L 500.2500, L100.0100 #### [facility] [address] [place], [address] HGB Normal 13.0-16.5 [facility] Comment on above: Result Comment: Canc elled via OM: Order cancelled - Patient discharged Performed By: #### L 500.2500, L100.0100 #### [facility] [address] [place], [address] MCH Normal 27.0-32.0 [facility] Comment on above: Result Comment: Canc elled via OM: Order cancelled - Patient discharged Performed By: #### L 500.2500, L100.0100 #### [facility] [address] [place], [address] MCHC Normal 32-36 [facility] Comment on above: Result Comment: Canc elled via OM: Order cancelled - Patient discharged Performed By: #### L 500.2500, L100.0100 #### [facility] [address] [place], [address] MCV Normal 80-94 [facility] Comment on above: Result Comment: Canc elled via OM: Order cancelled - Patient discharged Performed By: #### L 500.2500, L100.0100 #### [facility] [address] [place], [address] NEUT% Normal 47-70 [facility] Comment on above: Result Comment: Canc elled via OM: Order cancelled - Patient discharged Performed By: #### L 500.2500, L100.0100 #### [facility] [address] [place], [address] PLT Normal 150-450 [facility] Comment on above: Result Comment: Canc elled via OM: Order cancelled - Patient discharged Performed By: #### L 500.2500, L100.0100 #### [facility] [address] [place], [address] RBC Normal 4.6-6.2 [facility] Comment on above: Result Comment: Canc elled via OM: Order cancelled - Patient discharged Performed By: #### L 500.2500, L100.0100 #### [facility] [address] [place], [address] RDW CV Normal 11.6-14.6 [facility] Comment on above: Result Comment: Canc elled via OM: Order cancelled - Patient discharged Performed By: #### L 500.2500, L100.0100 #### [facility] [address] [place], [address] RDW SD Normal 35.1-43.9 [facility] Comment on above: Result Comment: Canc elled via OM: Order cancelled - Patient discharged Performed By: #### L 500.2500, L100.0100 #### [facility] [address] [place], [address] WBC Normal 4.4-11.0 [facility] Comment on above: Result Comment: Canc elled via OM: Order cancelled - Patient discharged Performed By: #### L 500.2500, L100.0100 #### [facility] [address] [place], [address] Basic Metabolic Profile (BMP )on 12-28-2024 BUN Normal 4-19 [facility] Comment on above: Result Comment: Canc elled via OM: Order cancelled - Patient discharged Performed By: #### L 100.0100, L500.2500 ####[facility] [address] [place], [address] BUN/CRE Normal 10-20 [facility] Comment on above: Result Comment: Canc elled via OM: Order cancelled - Patient discharged Performed By: #### L 100.0100, L500.2500 ####[facility] [address] [place], [address] Calcium Normal 7.6-11.0 [facility] Comment on above: Result Comment: Canc elled via OM: Order cancelled - Patient discharged Performed By: #### L 100.0100, L500.2500 ####[facility] [address] [place], [address] CL Normal 98-108 [facility] Comment on above: Result Comment: Canc elled via OM: Order cancelled - Patient discharged Performed By: #### L 100.0100, L500.2500 ####[facility] [address] [place], [address] CO2 Normal 21.0-32.0 [facility] Comment on above: Result Comment: Canc elled via OM: Order cancelled - Patient discharged Performed By: #### L 100.0100, L500.2500 ####[facility] [address] [place], [address] CREAT,SERUM Normal 0.70-1.20 [facility] Comment on above: Result Comment: Canc elled via OM: Order cancelled - Patient discharged Performed By: #### L 100.0100, L500.2500 ####[facility] [address] [place], [address] eGFR Normal >60 [facility] Comment on above: Result Comment: Canc elled via OM: Order cancelled - Patient discharged Performed By: #### L 100.0100, L500.2500 ####[facility] [address] [place], [address] GAP Normal 5-15 [facility] Comment on above: Result Comment: Canc elled via OM: Order cancelled - Patient discharged Performed By: #### L 100.0100, L500.2500 ####[facility] [address] [place], [address] GLU Normal 70-99 [facility] Comment on above: Result Comment: Canc elled via OM: Order cancelled - Patient discharged Performed By: #### L 100.0100, L500.2500 ####[facility] [address] [place], [address] Potassium Normal 3.3-5.1 [facility] Comment on above: Result Comment: Canc elled via OM: Order cancelled - Patient discharged Performed By: #### L 100.0100, L500.2500 ####[facility] [address] [place], [address] Basic Metabolic Profile (BMP) Normal 133-145 [facility] Comment on above: Result Comment: Canc elled via OM: Order cancelled - Patient discharged Performed By: #### L 100.0100, L500.2500 ####[facility] [address] [place], [address] CBC W/Diff, Automatedon 06-0 -2024 Absolute Neut Normal 2.0-7.7 [facility] Comment on above: Result Comment: Canc elled via OM: Order cancelled - Patient discharged Performed By: #### L 100.0100, L500.2500 ####[facility] [address] [place], [address] HCT Normal 40-54 [facility] Comment on above: Result Comment: Canc elled via OM: Order cancelled - Patient discharged Performed By: #### L 100.0100, L500.2500 ####[facility] [address] [place], [address] HGB Normal 13.0-16.5 [facility] Comment on above: Result Comment: Canc elled via OM: Order cancelled - Patient discharged Performed By: #### L 100.0100, L500.2500 ####[facility] [address] [place], [address] MCH Normal 27.0-32.0 [facility] Comment on above: Result Comment: Canc elled via OM: Order cancelled - Patient discharged Performed By: #### L 100.0100, L500.2500 ####[facility] [address] [place], [address] MCHC Normal 32-36 [facility] Comment on above: Result Comment: Canc elled via OM: Order cancelled - Patient discharged Performed By: #### L 100.0100, L500.2500 ####[facility] [address] [place], [address] MCV Normal 80-94 [facility] Comment on above: Result Comment: Canc elled via OM: Order cancelled - Patient discharged Performed By: #### L 100.0100, L500.2500 ####[facility] [address] [place], [address] NEUT% Normal 47-70 [facility] Comment on above: Result Comment: Canc elled via OM: Order cancelled - Patient discharged Performed By: #### L 100.0100, L500.2500 ####[facility] [address] [place], [address] PLT Normal 150-450 [facility] Comment on above: Result Comment: Canc elled via OM: Order cancelled - Patient discharged Performed By: #### L 100.0100, L500.2500 ####[facility] [address] [place], [address] RBC Normal 4.6-6.2 [facility] Comment on above: Result Comment: Canc elled via OM: Order cancelled - Patient discharged Performed By: #### L 100.0100, L500.2500 ####[facility] [address] [place], [address] RDW CV Normal 11.6-14.6 [facility] Comment on above: Result Comment: Canc elled via OM: Order cancelled - Patient discharged Performed By: #### L 100.0100, L500.2500 ####[facility] [address] [place], [address] RDW SD Normal 35.1-43.9 [facility] Comment on above: Result Comment: Canc elled via OM: Order cancelled - Patient discharged Performed By: #### L 100.0100, L500.2500 ####[facility] [address] [place], [address] WBC Normal 4.4-11.0 [facility] Comment on above: Result Comment: Canc elled via OM: Order cancelled - Patient discharged Performed By: #### L 100.0100, L500.2500 ####[facility] [address] [place], [place], [address] Culture, Blood (WB)on 2024 CUB Blood cultures x2, from two different sites GRAM STAIN= GRAM NEGATIVE RODS Culture, Blood (WB) RESULTS CALLED/PRINTED TO EVARISTO CARRANZA WILL GIVE TO ROSALIA 12/26/24 1143 Alcira Tavarez. Pseudomonas aeruginosa Amount Growth Growth * This is an amended result. * A prior result that was reported as final has been changed. 12/28/24 0812 by SAMEER Previously reported as: COMENT LEFT Pseudomonas aeruginosa: REACTION Amikacin Islt MELODIE 2 Cefepime Islt MELODIE 2 S Ciprofloxacin Islt MELODIE 0.12 S Imipenem Islt MELODIE 2 S levoFLOXacin Islt MELODIE 0.5 S Meropenem Islt MELODIE <=0.25 S Pip+Tazo Islt MELODIE 8 S Tobramycin Islt MELODIE <=1 S Normal [facility] Comment on above: Performed By: #### M 200.1000 ####[facility] [address] [place], [address] Absolute lymphocyte countOrd ered By: Dennis Guidry on 12-27-2024 Lymphocytes Auto (Unsp spec) [#/Vol] 1.07 10*3/uL 0.83-4.51 [facility] Anion gap in Serum or Plasma Ordered By: Dennis Guidry on 12-27-2024 Anion gap [Moles/Vol] 8 mmol/L 5-15 [facility] Automated lymphocyte count a s percentage of total leukocytesOrdered By: Dennis Guidry on 12-27-2024 Lymphocytes/100 WBC Auto (Unsp spec) 7.8 % Low 19-41 [facility] BUN/creatinine ratioOrdered By: Dennis Guidry on 12-27-2024 Urea nitrogen/Creatinine [Mass ratio] 20.2 mg/mg High 10-20 [facility] Basic Metabolic Profile (BMP )on 12-27-2024 BUN/CRE 20.2 RATIO High 10-20 [facility] Comment on above: Performed By: #### L 500.2500, L100.0100, L501.5200 ####[facility] [address] [place], [address] Calcium [Mass/Vol] 8.1 mg/dL Normal 7.6-11.0 [facility] Comment on above: Performed By: #### L 500.2500, L100.0100, L501.5200 ####[facility] [address] [place], [address] Chloride [Moles/Vol] 111 mmol/L High 98-108 [facility] Comment on above: Performed By: #### L 500.2500, L100.0100, L501.5200 ####[facility] [address] [place], [address] CO2 [Moles/Vol] 19.6 mmol/L Low 21.0-32.0 [facility] Comment on above: Performed By: #### L 500.2500, L100.0100, L501.5200 ####[facility] [address] [place], [address] Creatinine [Mass/Vol] 1.08 mg/dL Normal 0.70-1.20 [facility] Comment on above: Performed By: #### L 500.2500, L100.0100, L501.5200 ####[facility] [address] [place], [address] ECRCL 65.65 ml/min Normal 50-250 [facility] Comment on above: Performed By: #### L 500.2500, L100.0100, L501.5200 ####[facility] [address] [place], [address] GAP 8 Normal 5-15 [facility] Comment on above: Performed By: #### L 500.2500, L100.0100, L501.5200 ####[facility] [address] [place], [address] GFR/1.73 sq M.predicted among non-blacks MDRD (S/P/Bld) [Vol rate/Area] 69 mL/min/{1.73_m2} Normal >60 [facility] Comment on above: Result Comment: mL/m in/1.73m2 CKD-EPI Creatinine Equation (2020) Performed By: #### L 500.2500, L100.0100, L501.5200 ####[facility] [address] [place], [address] Glucose [Mass/Vol] 105 mg/dL High 70-99 [facility] Comment on above: Performed By: #### L 500.2500, L100.0100, L501.5200 ####[facility] [address] [place], [address] Potassium [Moles/Vol] 3.6 mmol/L Normal 3.3-5.1 [facility] Comment on above: Performed By: #### L 500.2500, L100.0100, L501.5200 ####[facility] [address] [place], [address] Sodium [Moles/Vol] 138 mmol/L Normal 133-145 [facility] Comment on above: Performed By: #### L 500.2500, L100.0100, L501.5200 ####[facility] [address] [place], [address] Urea nitrogen [Mass/Vol] 22 mg/dL High 4-19 [facility] Comment on above: Performed By: #### L 500.2500, L100.0100, L501.5200 ####[facility] [address] [place], [address] Basophil percentageOrdered B y: Dennis Guidry on 12-27-2024 Basophils/100 WBC (Bld) 0.4 % 0-1 [facility] CBC W/Diff, Automatedon Absolute Lymph 1.07 X10 3/uL Normal 0.83-4.51 [facility] Comment on above: Performed By: #### L 500.2500, L100.0100, L501.5200 ####[facility] [address] [place], [address] Absolute Neut 11.8 X10 3/uL High 2.0-7.7 [facility] Comment on above: Performed By: #### L 500.2500, L100.0100, L501.5200 ####[facility] [address] [place], [address] Basophils/100 WBC (Bld) 0.4 % Normal 0-1 [facility] Comment on above: Performed By: #### L 500.2500, L100.0100, L501.5200 ####[facility] [address] [place], [address] Eosinophils/100 WBC (Bld) 0.7 % Normal 0-5 [facility] Comment on above: Performed By: #### L 500.2500, L100.0100, L501.5200 ####[facility] [address] [place], [address] Erythrocyte distribution width (RBC) [Ratio] 12.9 % Normal 11.6-14.6 [facility] Comment on above: Performed By: #### L 500.2500, L100.0100, L501.5200 ####[facility] [address] [place], [address] Hematocrit (Bld) [Volume fraction] 32.0 % Low 40-54 [facility] Comment on above: Performed By: #### L 500.2500, L100.0100, L501.5200 ####[facility] [address] [place], [address] Hemoglobin (Bld) [Mass/Vol] 10.4 g/dL Low 13.0-16.5 [facility] Comment on above: Performed By: #### L 500.2500, L100.0100, L501.5200 ####[facility] [address] [place], [address] IG% 0.500 Normal 0.0-0.9 [facility] Comment on above: Result Comment: IG% - Immature Granulocytes (promyelocytes, myelocytes and metamyelocytes) > 1% indicates that a LEFT SHIFT is Present. Performed By: #### L 500.2500, L100.0100, L501.5200 ####[facility] [address] [place], [address] Lymphocytes/100 WBC (Bld) 7.8 % Low 19-41 [facility] Comment on above: Performed By: #### L 500.2500, L100.0100, L501.5200 ####[facility] [address] [place], [address] MCH (RBC) [Entitic mass] 29.8 pg Normal 27.0-32.0 [facility] Comment on above: Performed By: #### L 500.2500, L100.0100, L501.5200 ####[facility] [address] [place], [address] MCHC (RBC) [Mass/Vol] 32.5 g/dL Normal 32-36 [facility] Comment on above: Performed By: #### L 500.2500, L100.0100, L501.5200 ####[facility] [address] [place], [address] MCV (RBC) [Entitic vol] 91.7 fL Normal 80-94 [facility] Comment on above: Performed By: #### L 500.2500, L100.0100, L501.5200 ####[facility] [address] [place], [address] Monocytes/100 WBC (Bld) 4.8 % Normal 0-10 [facility] Comment on above: Performed By: #### L 500.2500, L100.0100, L501.5200 ####[facility] [address] [place], [address] Neutrophils/100 WBC (Bld) 85.8 % High 47-70 [facility] Comment on above: Performed By: #### L 500.2500, L100.0100, L501.5200 ####[facility] [address] [place], [address] Nucleated RBC (Bld) [#/Vol] 0 10*3/uL Normal 0-5 [facility] Comment on above: Performed By: #### L 500.2500, L100.0100, L501.5200 ####[facility] [address] [place], [address] Platelet mean volume (Bld) [Entitic vol] 9.6 fL Normal 6.2-12.0 [facility] Comment on above: Performed By: #### L 500.2500, L100.0100, L501.5200 ####[facility] [address] [place], [address] Platelets (Bld) [#/Vol] 159 10*3/uL Normal 150-450 [facility] Comment on above: Performed By: #### L 500.2500, L100.0100, L501.5200 ####[facility] [address] [place], [address] RBC (Bld) [#/Vol] 3.49 10*6/uL Low 4.6-6.2 [facility] Comment on above: Performed By: #### L 500.2500, L100.0100, L501.5200 ####[facility] [address] [place], [address] RDW SD 42.9 fl Normal 35.1-43.9 [facility] Comment on above: Performed By: #### L 500.2500, L100.0100, L501.5200 ####[facility] [address] [place], [address] WBC (Bld) [#/Vol] 13.7 10*3/uL High 4.4-11.0 [facility] Comment on above: Performed By: #### L 500.2500, L100.0100, L501.5200 ####[facility] [address] [place], [address] Carbon dioxide, total [Moles /volume] in Central venous bloodOrdered By: Dennis Guidry on 12-27-2024 CO2 [Moles/Vol] 19.6 mmol/L Low 21.0-32.0 [facility] Chloride assayOrdered By: Mili Guidry on 12-27-2024 Chloride [Moles/Vol] 111 mmol/L High 98-108 [facility] ENTERIC PATHOGEN PANEL STOOL on 12-27-2024 EP PANEL Is the patient receiving laxatives? N New/unexplained onset of 3 or more stools in past 24 hrs? Y CAMPYLOBACTER Not Detected Norovirus Not Detected Rotavirus Not Detected Salmonella Not Detected Shiga Toxin Not Detected Shigella sp. Not Detected VIBRIO Not Detected Yersinia Not Detected Normal [facility] Comment on above: Performed By: #### L 100.0100, L501.6710, L500.4050, L101.9900 #### [facility] [address] [place], [address] Eosinophil percentageOrdered By: Dennis Guidry on 12-27-2024 Eosinophils/100 WBC (Bld) 0.7 % 0-5 [facility] Erythrocyte distribution wid th ratioOrdered By: Dennis Guidry on 12-27-2024 Erythrocyte distribution width (RBC) [Ratio] 12.9 % 11.6-14.6 [facility] Erythrocyte distribution wid th standard deviationOrdered By: Dennis Guidry on 12-27-2024 Erythrocyte distribution width (RBC) [Ratio] 42.9 fl 35.1-43.9 [facility] Glomerular filtration rate ( GFR) estimation/1.73 sq m using serum, plasma, or whole bOrdered By: Dennis Guidry on 12-27-2024 GFR/1.73 sq M.predicted among non-blacks MDRD (S/P/Bld) [Vol rate/Area] 69 mL/min/{1.73_m2} >60 [facility] Hematocrit Auto (Bld) [Volum e fraction]Ordered By: Dennis Guidry on 12-27-2024 Hematocrit (Bld) [Volume fraction] 32.0 % Low 40-54 [facility] Hemoglobin measurementOrdere d By: Dennis Guidry on 12-27-2024 Hemoglobin (Bld) [Mass/Vol] 10.4 g/dL Low 13.0-16.5 [facility] Immature granulocytes/100 WB C Auto (Bld)Ordered By: Dennis Guidry on 12-27-2024 Immature granulocytes/100 WBC (Bld) 0.500 % 0.0-0.9 [facility] MCV (mean corpuscular volume ) determinationOrdered By: Dennis Guidry on 12-27-2024 MCV (RBC) [Entitic vol] 91.7 fL 80-94 [facility] Magnesiumon 12-27-2024 Magnesium [Mass/Vol] 2.2 mg/dL Normal 1.5-2.2 [facility] Comment on above: Performed By: #### L 500.2500, L100.0100, L501.5200 ####[facility] [address] [place], [place], [id number] Magnesium measurement (mass/ volume)Ordered By: Stan Stein on 12-27-2024 Magnesium (Unsp spec) [Mass/Vol] 2.2 mg/dL 1.5-2.2 [facility] Mean corpuscular hemoglobin (MCH) determinationOrdered By: Dennis Guidry on 12-27-2024 MCH (RBC) [Entitic mass] 29.8 pg 27.0-32.0 [facility] Monocyte percentageOrdered B y: Dennis Guidry on 12-27-2024 Monocytes/100 WBC (Bld) 4.8 % 0-10 [facility] Neutrophil percentageOrdered By: Dennis Guidry on 12-27-2024 Neutrophils/100 WBC (Bld) 85.8 % High 47-70 [facility] Phosphoruson 12-27-2024 Phosphate [Mass/Vol] 2.1 mg/dL Low 2.7-4.5 [facility] Comment on above: Performed By: #### L 501.2308 #### [facility] [address] [place], [address] Platelet countOrdered By: Mili Guidry on 12-27-2024 Platelets (Bld) [#/Vol] 159 10*3/uL 150-450 [facility] Potassium measurement (mass/ volume)Ordered By: Dennis Guidry on 12-27-2024 Potassium (Unsp spec) [Mass/Vol] 3.6 mmol/L 3.3-5.1 [facility] RBC Auto (Bld) [#/Vol]Ordere d By: Dennis Guidry on 12-27-2024 RBC (Bld) [#/Vol] 3.49 10*6/uL Low 4.6-6.2 [facility] Serum creatinine measurement (mass/volume)Ordered By: Dennis Guidry on 12-27-2024 Creatinine [Mass/Vol] 1.08 mg/dL 0.70-1.20 [facility] Serum glucose measurement (m ass/volume)Ordered By: Dennis Guidry on 12-27-2024 Glucose [Mass/Vol] 105 mg/dL High 70-99 [facility] Serum or plasma calcium ibrahima urement (mass/volume)Ordered By: Dennis Guidry on 12-27-2024 Calcium [Mass/Vol] 8.1 mg/dL 7.6-11.0 [facility] Serum or plasma urea nitroge n measurement (mass/volume)Ordered By: Dennis Guidry on 12-27-2024 Urea nitrogen [Mass/Vol] 22 mg/dL High 4-19 [facility] Sodium levelOrdered By: Dennis Guidry on 12-27-2024 Sodium [Moles/Vol] 138 mmol/L 133-145 [facility] Urine Cultureon 12-27-2024 URC Pseudomonas aeruginosa [place] Count 50,000-80,000 Pseudomonas aeruginosa: REACTION Cefepime Islt MELODIE 2 Ciprofloxacin Islt MELODIE 0.12 S levoFLOXacin Islt MELODIE 0.5 S Meropenem Islt MELODIE <=0.25 S Pip+Tazo Islt MELODIE 8 S Normal [facility] Comment on above: Performed By: #### L 100.0100, L501.6710, L500.4050, L101.9900 #### [facility] [address] [place], [address] White blood cell (WBC) count Ordered By: Dennis Guidry on 12-27-2024 WBC (Bld) [#/Vol] 13.7 10*3/uL High 4.4-11.0 [facility] Basic Metabolic Profile (BMP )on 12-26-2024 BUN/CRE 20.3 RATIO High 10-20 [facility] Comment on above: Performed By: #### L 100.0100, L500.2500 ####[facility] [address] [place], [address] Calcium [Mass/Vol] 8.3 mg/dL Normal 7.6-11.0 [facility] Comment on above: Performed By: #### L 100.0100, L500.2500 ####[facility] [address] [place], [address] Chloride [Moles/Vol] 106 mmol/L Normal 98-108 [facility] Comment on above: Performed By: #### L 100.0100, L500.2500 ####[facility] [address] [place], [address] CO2 [Moles/Vol] 19.2 mmol/L Low 21.0-32.0 [facility] Comment on above: Performed By: #### L 100.0100, L500.2500 ####[facility] [address] [place], [address] Creatinine [Mass/Vol] 1.14 mg/dL Normal 0.70-1.20 [facility] Comment on above: Performed By: #### L 100.0100, L500.2500 ####[facility] [address] [place], [address] ECRCL 62.19 ml/min Normal 50-250 [facility] Comment on above: Performed By: #### L 100.0100, L500.2500 ####[facility] [address] [place], [address] GAP 12 Normal 5-15 [facility] Comment on above: Performed By: #### L 100.0100, L500.2500 ####[facility] [address] [place], [address] GFR/1.73 sq M.predicted among non-blacks MDRD (S/P/Bld) [Vol rate/Area] 65 mL/min/{1.73_m2} Normal >60 [facility] Comment on above: Result Comment: mL/m in/1.73m2 CKD-EPI Creatinine Equation (2020) Performed By: #### L 100.0100, L500.2500 ####[facility] [address] [place], [address] Glucose [Mass/Vol] 131 mg/dL High 70-99 [facility] Comment on above: Performed By: #### L 100.0100, L500.2500 ####[facility] [address] [place], [address] Potassium [Moles/Vol] 3.5 mmol/L Normal 3.3-5.1 [facility] Comment on above: Performed By: #### L 100.0100, L500.2500 ####[facility] [address] [place], [address] Sodium [Moles/Vol] 136 mmol/L Normal 133-145 [facility] Comment on above: Performed By: #### L 100.0100, L500.2500 ####[facility] [address] [place], [address] Urea nitrogen [Mass/Vol] 23 mg/dL High 4-19 [facility] Comment on above: Performed By: #### L 100.0100, L500.2500 ####[facility] [address] [place], [address] CBC W/Diff, Automatedon 06-0 2-2024 Absolute Lymph 0.76 X10 3/uL Low 0.83-4.51 [facility] Comment on above: Performed By: #### L 100.0100, L500.2500 ####[facility] [address] [place], [address] Absolute Neut 14.6 X10 3/uL High 2.0-7.7 [facility] Comment on above: Performed By: #### L 100.0100, L500.2500 ####[facility] [address] [place], [address] Basophils/100 WBC (Bld) 0.2 % Normal 0-1 [facility] Comment on above: Performed By: #### L 100.0100, L500.2500 ####[facility] [address] [place], [address] Eosinophils/100 WBC (Bld) 0.0 % Normal 0-5 [facility] Comment on above: Performed By: #### L 100.0100, L500.2500 ####[facility] [address] [place], [address] Erythrocyte distribution width (RBC) [Ratio] 12.8 % Normal 11.6-14.6 [facility] Comment on above: Performed By: #### L 100.0100, L500.2500 ####[facility] [address] [place], [address] Hematocrit (Bld) [Volume fraction] 33.0 % Low 40-54 [facility] Comment on above: Performed By: #### L 100.0100, L500.2500 ####[facility] [address] [place], [address] Hemoglobin (Bld) [Mass/Vol] 11.2 g/dL Low 13.0-16.5 [facility] Comment on above: Performed By: #### L 100.0100, L500.2500 ####[facility] [address] [place], [address] IG% 0.600 Normal 0.0-0.9 [facility] Comment on above: Result Comment: IG% - Immature Granulocytes (promyelocytes, myelocytes and metamyelocytes) > 1% indicates that a LEFT SHIFT is Present. Performed By: #### L 100.0100, L500.2500 ####[facility] [address] [place], [address] Lymphocytes/100 WBC (Bld) 4.7 % Low 19-41 [facility] Comment on above: Performed By: #### L 100.0100, L500.2500 ####[facility] [address] [place], [address] MCH (RBC) [Entitic mass] 30.3 pg Normal 27.0-32.0 [facility] Comment on above: Performed By: #### L 100.0100, L500.2500 ####[facility] [address] [place], [address] MCHC (RBC) [Mass/Vol] 33.9 g/dL Normal 32-36 [facility] Comment on above: Performed By: #### L 100.0100, L500.2500 ####[facility] [address] [place], [address] MCV (RBC) [Entitic vol] 89.2 fL Normal 80-94 [facility] Comment on above: Performed By: #### L 100.0100, L500.2500 ####[facility] [address] [place], [address] Monocytes/100 WBC (Bld) 4.1 % Normal 0-10 [facility] Comment on above: Performed By: #### L 100.0100, L500.2500 ####[facility] [address] [place], [address] Neutrophils/100 WBC (Bld) 90.4 % High 47-70 [facility] Comment on above: Performed By: #### L 100.0100, L500.2500 ####[facility] [address] [place], [address] Nucleated RBC (Bld) [#/Vol] 0 10*3/uL Normal 0-5 [facility] Comment on above: Performed By: #### L 100.0100, L500.2500 ####[facility] [address] [place], [address] Platelet mean volume (Bld) [Entitic vol] 9.4 fL Normal 6.2-12.0 [facility] Comment on above: Performed By: #### L 100.0100, L500.2500 ####[facility] [address] [place], [address] Platelets (Bld) [#/Vol] 166 10*3/uL Normal 150-450 [facility] Comment on above: Performed By: #### L 100.0100, L500.2500 ####[facility] [address] [place], [address] RBC (Bld) [#/Vol] 3.70 10*6/uL Low 4.6-6.2 [facility] Comment on above: Performed By: #### L 100.0100, L500.2500 ####[facility] [address] [place], [address] RDW SD 41.6 fl Normal 35.1-43.9 [facility] Comment on above: Performed By: #### L 100.0100, L500.2500 ####[facility] [address] [place], [address] WBC (Bld) [#/Vol] 16.1 10*3/uL High 4.4-11.0 [facility] Comment on above: Performed By: #### L 100.0100, L500.2500 ####[facility] [address] [place], [address] CDIFF (PCR)on 12-26-2024 CDIFF Is the patient receiving laxatives? N New/unexplained onset of 3 or more stools in past 24 hrs? Y Pending 027 027 NAP1-B1 Presumptive Negative *for epidemiolologic???us e C. Diff PCR Negative- No toxigenic C. Diff Detected Normal [facility] Comment on above: Performed By: #### L 100.0100, L501.6710, L500.4050, L101.9900 #### [facility] [address] [place], [address] Clostridium difficile detect ion by polymerase chain reactionOrdered By: Stan Stein on 12-26-2024 C. difficile DNA PAMELA+probe Ql (Unsp spec) [facility] Consultation - Infectious Dx on 12-26-2024 Consultation - Infectious Dx [facility] Medical Records Department [address] [place] [address] Consultation - Infectious Dx 12/26/24 1310 MR#: [id number] Acct: [id number] Name: ZION MARSH Rep #: [id number] : 1945 79 From: Triston Villarreal MD PCP: Dr. Abe Gilmore MD Status:ADM IN Location: MS3 [id number] Assessment Plan Assessment/Plan (1) Acute UTI: PLAN: Ucx pending, recent Ucx with PsA but had reaction to cipro. Feeling better, will continue zosyn. Likely will need midline and home iv abx at discharge. Will follow, thank you (2) History of ureter stent: (3) Hx of renal calculi: HPI Consult Data Date of Consult: 12/26/24 HPI Narrative Reason for Consultation: uti HPI Narrative: ZION MARSH, is a 79 M with h/o kidney stones, had laser lithotripsy and L sided stent placed by Dr. Guidry on 12/14/24. A few days after that, developed abd and flank pain with dysuria. Ucx sent, started on cipro for PsA. Took for about 5 days but developed lip/gum pain and swelling and abx stopped about a week ago. Urinary sx worsened, admitted here with new fever, started on zosyn, feeling better this AM. Full ROS performed and neg except as noted above. [facility] Medical History Kidney stone on left side Loss of hearing Prostate disease Low iron Restless legs Hypertension History of MRSA infection Wears glasses Anxiety Arthritis High cholesterol Gastric reflux Non-smoker CPAP (continuous positive airway pressure) dependence History of pain when walking History of stress test History of echocardiogram Cardiology follow-up encounter BPH (benign prostatic hyperplasia) Dyslipidemia Nephrolithiasis Coronary artery disease Home Medications ???Medication ???Instructions ???Recorded ???Last Taken ???Type aspirin 81 mg tablet,delayed 81 mg PO QHS BLOOD THINNER 5 12/07/24 History release atorvastatin 40 mg tablet 40 mg PO QHS CHOLESTEROL 04/04/15 12/15/24 History finasteride 5 mg tablet 5 mg PO QHS URINATION 04/04/15 History tamsulosin 0.4 mg capsule 0.4 mg PO QHS URINATION 04/04/15 0 12/15/24 History doxazosin 4 mg tablet,extended 4 mg PO QHS HEART 01/23/17 5 History release 24 hr (Cardura XL) cholecalciferol (vitamin D3) 25 25 mcg PO DAILY SUPPLEMENT 2 12/15/24 History mcg (1,000 unit) capsule (Vitamin D3) gabapentin 100 mg capsule 200 mg PO QHS PAIN 12/17/21 History losartan 50 mg tablet 50 mg PO DAILY BP 12/17/21 5 History multivitamin 1 tab PO DAILY SUPPLEMENT 12/17/21 12/16/24 History tramadol 50 mg tablet 50 mg PO 4X/DAY PRN pain 12/08/24 12/15/24 History ibuprofen 600 mg tablet 600 mg PO Q6H PRN pain #20 tabs 12/16/24 Rx acetaminophen 500 mg capsule 1,000 mg PO Q4H PRN pain 12/16/24 12/16/24 History omeprazole 20 mg capsule,delayed 40 mg PO DAILY 12/16/24 12/16/24 H istory release venlafaxine 150 mg 150 mg PO DAILY 12/16/24 12/15/24 History capsule,extended release 24 hr cephalexin 500 mg capsule 500 mg PO Q6 #20 CAPSULES 12/25/24 Unknown Rx Allergy/AdvReac Type Severity Reaction Status Date / Time No Known Allergies Allergy Verified 12/25/24 20:10 Surgical History S/P umbilical hernia repair, follow-up exam Hx of bilateral cataract extraction Hx of hernia repair Hx of appendectomy History of carpal tunnel release of both wrists Hx of repair of right rotator cuff Hx of repair of left rotator cuff Hx of bilateral hip replacements Social History household members: spouse Smoking Status: Never smoker Physical Exam Const alert, oriented x3 and no apparent distress General Appearance: cooperative HEENT normocephalic and head/scalp atraumatic Eyes PERRL and EOMs intact bilaterally Neck supple and No nodes Resp normal air movement and clear to auscultation bilaterally Cardio regular rate and regular rhythm GI soft to palpation, non-tender and non-distended Extremity General Extremity: Negative for edema Skin no rashes or lesions noted Neuro CN's II-XII intact bilaterally Lab / Micro Data Attestation: I reviewed the patient's lab results. 12/26/24 05:55 12/26/24 05:55 Labs: Laboratory Results - last 24 hr 12/25/24 20:34: WBC 17.8 H, RBC 3.91 L, Hgb 11.9 L, Hct 34.8 L, MCV 89.0, MCH 30.4, MCHC 34.2, RDW Std Deviation 40.9, RDW Coeff of Renato 12.6, Plt Count 192, MPV 9.1, Immature Gran % (Auto) 0.900, N eut % (Auto) 91.4 H, Lymph % (Auto) 4.0 L, [place] % (Auto) 3.4, Eos % (Auto) 0.0, Baso % (Auto) 0.3, A bsolute Neuts (auto) 16.3 H, Absolute Lymphs (auto) 0.72 L, Nucleated RBC % 0, Sodium 134, Potassium 3.8, Chlo (more content not included)... Normal [facility] Absolute lymphocyte countOrd ered By: Steven Donald on 12-25-2024 Lymphocytes Auto (Unsp spec) [#/Vol] 0.72 10*3/uL Low 0.83-4.51 [facility] Absolute lymphocyte countOrd ered By: Zain Merlos on 12-25-2024 Lymphocytes Auto (Unsp spec) [#/Vol] 0.62 10*3/uL Low 0.83-4.51 [facility] Absolute neutrophil countOrd ered By: Steven Donald on 12-25-2024 Neutrophils (Bld) [#/Vol] 16.3 10*3/uL High 2.0-7.7 [facility] Absolute neutrophil countOrd ered By: Zain Merlos on 12-25-2024 Neutrophils (Bld) [#/Vol] 13.5 10*3/uL High 2.0-7.7 [facility] Anion gap in Serum or Plasma Ordered By: Steven Donald on 12-25-2024 Anion gap [Moles/Vol] 12 mmol/L 12-08 [facility] Anion gap in Serum or Plasma Ordered By: Zain Merlos on 12-25-2024 Anion gap [Moles/Vol] 12 mmol/L 12-08 [facility] Automated lymphocyte count a s percentage of total leukocytesOrdered By: Steven Donald on 12-25-2024 Lymphocytes/100 WBC Auto (Unsp spec) 4.0 % Low 19-41 [facility] Automated lymphocyte count a s percentage of total leukocytesOrdered By: Zain Merlos on 12-25-2024 Lymphocytes/100 WBC Auto (Unsp spec) 4.2 % Low [facility] BUN/creatinine ratioOrdered By: Steven Donald on 12-25-2024 Urea nitrogen/Creatinine [Mass ratio] 22.3 mg/mg High 05-15 [facility] BUN/creatinine ratioOrdered By: Zain Merlos on 12-25-2024 Urea nitrogen/Creatinine [Mass ratio] 21.1 mg/mg High [facility] Basic Metabolic Profile (BMP )on 12-25-2024 BUN/CRE 22.[address] [facility] Comment on above: Performed By: #### L 100.0100, L501.6710, L500.4050, L101.9900 #### [facility] [address] [place], [address] Calcium [Mass/Vol] 8.9 mg/dL Normal 7.6-11.0 [facility] Comment on above: Performed By: #### L 100.0100, L501.6710, L500.4050, L101.9900 #### [facility] [address] [place], [address] Chloride [Moles/Vol] 103 mmol/L Normal 98-108 [facility] Comment on above: Performed By: #### L 100.0100, L501.6710, L500.4050, L101.9900 #### [facility] [address] [place], [address] CO2 [Moles/Vol] 19.5 mmol/L Low 21.0-32.0 [facility] Comment on above: Performed By: #### L 100.0100, L501.6710, L500.4050, L101.9900 #### [facility] [address] [place], [address] Creatinine [Mass/Vol] 1.10 mg/dL Normal 0.70-1.20 [facility] Comment on above: Performed By: #### L 100.0100, L501.6710, L500.4050, L101.9900 #### [facility] [address] [place], [address] ECRCL 64.52 ml/min Normal 50-250 [facility] Comment on above: Performed By: #### L 100.0100, L501.6710, L500.4050, L101.9900 #### [facility] [address] [place], [address] GAP 12 Normal 5-15 [facility] Comment on above: Performed By: #### L 100.0100, L501.6710, L500.4050, L101.9900 #### [facility] [address] [place], [address] GFR/1.73 sq M.predicted among non-blacks MDRD (S/P/Bld) [Vol rate/Area] 68 mL/min/{1.73_m2} Normal >60 [facility] Comment on above: Result Comment: mL/m in/1.73m2 CKD-EPI Creatinine Equation (2020) Performed By: #### L 100.0100, L501.6710, L500.4050, L101.9900 #### [facility] [address] [place], [address] Glucose [Mass/Vol] 134 mg/dL High 70-99 [facility] Comment on above: Performed By: #### L 100.0100, L501.6710, L500.4050, L101.9900 #### [facility] [address] [place], [address] Potassium [Moles/Vol] 3.8 mmol/L Normal 3.3-5.1 [facility] Comment on above: Performed By: #### L 100.0100, L501.6710, L500.4050, L101.9900 #### [facility] [address] [place], [address] Sodium [Moles/Vol] 134 mmol/L Normal 133-145 [facility] Comment on above: Performed By: #### L 100.0100, L501.6710, L500.4050, L101.9900 #### [facility] [address] [place], [address] Urea nitrogen [Mass/Vol] 25 mg/dL High 4-19 [facility] Comment on above: Performed By: #### L 100.0100, L501.6710, L500.4050, L101.9900 #### [facility] [address] [place], [address] Basophil percentageOrdered B y: Steven Donald on 12-25-2024 Basophils/100 WBC (Bld) 0.3 % 0-1 [facility] Basophil percentageOrdered B y: Zain Merlos on 12-25-2024 Basophils/100 WBC (Bld) 0.5 % 0-1 [facility] Bilirubin Test strip Ql (U)O rdered By: Zain Merlos on 12-25-2024 Bilirubin Ql (U) Negative Negative [facility] Bilirubin, totalOrdered By: Zain Merlos on 12-25-2024 Bilirubin [Mass/Vol] 0.42 mg/dL 0.00-1.30 [facility] Blood cultureOrdered By: Rem us Gaurang on 12-25-2024 Bacteria identified Cx Nom (Bld) Pseudomonas aeruginosa Abnormal [facility] Bacteria identified Cx Nom (Bld) No growth in 5 days. [facility] CBC W/Diff, Automatedon Absolute Lymph 0.72 X10 3/uL Low 0.83-4.51 [facility] Comment on above: Performed By: #### L 100.0100, L501.6710, L500.4050, L101.9900 #### [facility] [address] [place], [address] Absolute Neut 16.3 X10 3/uL High 2.0-7.7 [facility] Comment on above: Performed By: #### L 100.0100, L501.6710, L500.4050, L101.9900 #### [facility] [address] [place], [address] Basophils/100 WBC (Bld) 0.3 % Normal 0-1 [facility] Comment on above: Performed By: #### L 100.0100, L501.6710, L500.4050, L101.9900 #### [facility] [address] [place], [address] Eosinophils/100 WBC (Bld) 0.0 % Normal 0-5 [facility] Comment on above: Performed By: #### L 100.0100, L501.6710, L500.4050, L101.9900 #### [facility] [address] [place], [address] Erythrocyte distribution width (RBC) [Ratio] 12.6 % Normal 11.6-14.6 [facility] Comment on above: Performed By: #### L 100.0100, L501.6710, L500.4050, L101.9900 #### [facility] [address] [place], [address] Hematocrit (Bld) [Volume fraction] 34.8 % Low 40-54 [facility] Comment on above: Performed By: #### L 100.0100, L501.6710, L500.4050, L101.9900 #### [facility] [address] [place], [address] Hemoglobin (Bld) [Mass/Vol] 11.9 g/dL Low 13.0-16.5 [facility] Comment on above: Performed By: #### L 100.0100, L501.6710, L500.4050, L101.9900 #### [facility] [address] [place], [address] IG% 0.900 Normal 0.0-0.9 [facility] Comment on above: Result Comment: IG% - Immature Granulocytes (promyelocytes, myelocytes and metamyelocytes) > 1% indicates that a LEFT SHIFT is Present. Performed By: #### L 100.0100, L501.6710, L500.4050, L101.9900 #### [facility] [address] [place], [address] Lymphocytes/100 WBC (Bld) 4.0 % Low 19-41 [facility] Comment on above: Performed By: #### L 100.0100, L501.6710, L500.4050, L101.9900 #### [facility] [address] [place], [address] MCH (RBC) [Entitic mass] 30.4 pg Normal 27.0-32.0 [facility] Comment on above: Performed By: #### L 100.0100, L501.6710, L500.4050, L101.9900 #### [facility] [address] [place], [address] MCHC (RBC) [Mass/Vol] 34.2 g/dL Normal 32-36 [facility] Comment on above: Performed By: #### L 100.0100, L501.6710, L500.4050, L101.9900 #### [facility] [address] [place], [address] MCV (RBC) [Entitic vol] 89.0 fL Normal 80-94 [facility] Comment on above: Performed By: #### L 100.0100, L501.6710, L500.4050, L101.9900 #### [facility] [address] [place], [address] Monocytes/100 WBC (Bld) 3.4 % Normal 0-10 [facility] Comment on above: Performed By: #### L 100.0100, L501.6710, L500.4050, L101.9900 #### [facility] [address] [place], [address] Neutrophils/100 WBC (Bld) 91.4 % High 47-70 [facility] Comment on above: Performed By: #### L 100.0100, L501.6710, L500.4050, L101.9900 #### [facility] [address] [place], [address] Nucleated RBC (Bld) [#/Vol] 0 10*3/uL Normal 0-5 [facility] Comment on above: Performed By: #### L 100.0100, L501.6710, L500.4050, L101.9900 #### [facility] [address] [place], [address] Platelet mean volume (Bld) [Entitic vol] 9.1 fL Normal 6.2-12.0 [facility] Comment on above: Performed By: #### L 100.0100, L501.6710, L500.4050, L101.9900 #### [facility] [address] [place], [address] Platelets (Bld) [#/Vol] 192 10*3/uL Normal 150-450 [facility] Comment on above: Performed By: #### L 100.0100, L501.6710, L500.4050, L101.9900 #### [facility] [address] [place], [address] RBC (Bld) [#/Vol] 3.91 10*6/uL Low 4.6-6.2 [facility] Comment on above: Performed By: #### L 100.0100, L501.6710, L500.4050, L101.9900 #### [facility] [address] [place], [address] RDW SD 40.9 fl Normal 35.1-43.9 [facility] Comment on above: Performed By: #### L 100.0100, L501.6710, L500.4050, L101.9900 #### [facility] [address] [place], [address] WBC (Bld) [#/Vol] 17.8 10*3/uL High 4.4-11.0 [facility] Comment on above: Performed By: #### L 100.0100, L501.6710, L500.4050, L101.9900 #### [facility] [address] [place], [address] Absolute Lymph 0.62 X10 3/uL Low 0.83-4.51 [facility] Comment on above: Performed By: #### L 100.0100, L501.6710, L500.4050, L101.9900 #### [facility] [address] [place], [address] Absolute Neut 13.5 X10 3/uL High 2.0-7.7 [facility] Comment on above: Performed By: #### L 100.0100, L501.6710, L500.4050, L101.9900 #### [facility] [address] [place], [address] Basophils/100 WBC (Bld) 0.5 % Normal 0-1 [facility] Comment on above: Performed By: #### L 100.0100, L501.6710, L500.4050, L101.9900 #### [facility] [address] [place], [address] Eosinophils/100 WBC (Bld) 0.3 % Normal 0-5 [facility] Comment on above: Performed By: #### L 100.0100, L501.6710, L500.4050, L101.9900 #### [facility] [address] [place], [address] Erythrocyte distribution width (RBC) [Ratio] 12.2 % Normal 11.6-14.6 [facility] Comment on above: Performed By: #### L 100.0100, L501.6710, L500.4050, L101.9900 #### [facility] [address] [place], [address] Hematocrit (Bld) [Volume fraction] 36.8 % Low 40-54 [facility] Comment on above: Performed By: #### L 100.0100, L501.6710, L500.4050, L101.9900 #### [facility] [address] [place], [address] Hemoglobin (Bld) [Mass/Vol] 12.3 g/dL Low 13.0-16.5 [facility] Comment on above: Performed By: #### L 100.0100, L501.6710, L500.4050, L101.9900 #### [facility] [address] [place], [address] IG% 0.700 Normal 0.0-0.9 [facility] Comment on above: Result Comment: IG% - Immature Granulocytes (promyelocytes, myelocytes and metamyelocytes) > 1% indicates that a LEFT SHIFT is Present. Performed By: #### L 100.0100, L501.6710, L500.4050, L101.9900 #### [facility] [address] [place], [address] Lymphocytes/100 WBC (Bld) 4.2 % Low 19-41 [facility] Comment on above: Performed By: #### L 100.0100, L501.6710, L500.4050, L101.9900 #### [facility] [address] [place], [address] MCH (RBC) [Entitic mass] 30.2 pg Normal 27.0-32.0 [facility] Comment on above: Performed By: #### L 100.0100, L501.6710, L500.4050, L101.9900 #### [facility] [address] [place], [address] MCHC (RBC) [Mass/Vol] 33.4 g/dL Normal 32-36 [facility] Comment on above: Performed By: #### L 100.0100, L501.6710, L500.4050, L101.9900 #### [facility] [address] [place], [address] MCV (RBC) [Entitic vol] 90.4 fL Normal 80-94 [facility] Comment on above: Performed By: #### L 100.0100, L501.6710, L500.4050, L101.9900 #### [facility] [address] [place], [address] Monocytes/100 WBC (Bld) 3.0 % Normal 0-10 [facility] Comment on above: Performed By: #### L 100.0100, L501.6710, L500.4050, L101.9900 #### [facility] [address] [place], [address] Neutrophils/100 WBC (Bld) 91.3 % High 47-70 [facility] Comment on above: Performed By: #### L 100.0100, L501.6710, L500.4050, L101.9900 #### [facility] [address] [place], [address] Nucleated RBC (Bld) [#/Vol] 0 10*3/uL Normal 0-5 [facility] Comment on above: Performed By: #### L 100.0100, L501.6710, L500.4050, L101.9900 #### [facility] [address] [place], [address] Platelet mean volume (Bld) [Entitic vol] 9.6 fL Normal 6.2-12.0 [facility] Comment on above: Performed By: #### L 100.0100, L501.6710, L500.4050, L101.9900 #### [facility] [address] [place], [address] Platelets (Bld) [#/Vol] 225 10*3/uL Normal 150-450 [facility] Comment on above: Performed By: #### L 100.0100, L501.6710, L500.4050, L101.9900 #### [facility] [address] [place], [address] RBC (Bld) [#/Vol] 4.07 10*6/uL Low 4.6-6.2 [facility] Comment on above: Performed By: #### L 100.0100, L501.6710, L500.4050, L101.9900 #### [facility] [address] [place], [address] RDW SD 40.3 fl Normal 35.1-43.9 [facility] Comment on above: Performed By: #### L 100.0100, L501.6710, L500.4050, L101.9900 #### [facility] [address] [place], [address] WBC (Bld) [#/Vol] 14.7 10*3/uL High 4.4-11.0 [facility] Comment on above: Performed By: #### L 100.0100, L501.6710, L500.4050, L101.9900 #### [facility] [address] [place], [address] Carbon dioxide, total [Moles /volume] in Central venous bloodOrdered By: Steven Donald on 12-25-2024 CO2 [Moles/Vol] 19.5 mmol/L Low 21.0-32.0 [facility] Carbon dioxide, total [Moles /volume] in Central venous bloodOrdered By: Zain Merlos on 12-25-2024 CO2 [Moles/Vol] 21.9 mmol/L 21.0-32.0 [facility] Chest 1 View (Portable)on Chest 1 View (Portable) [facility] Imaging Services [address] [place], [place] [address] Chest 1 View (Portable) MR#: [id number] Acct: [id number] Name: ZION MARSH Rep #: [id number] : 1945 M 79 From: Lizette Rincon nd, MD PCP: Dr. Abe Gilmore MD Status: [facility] ER Study: Chest 1 View (Portable) Date of Exam: 12/25/24 Exam# [id number] Ordering Dr: Zain Merlos DO PROCEDURE: CHEST 1 VIEW (PORTABLE) 12/25/2024 REASON FOR EXAM: FEVER TECHNIQUE: Frontal view of the chest. COMPARISON: Chest radiograph 06/22/2019. FINDINGS: Hardware: None. Heart: The heart size is normal. Retrocardiac lucency, compatible with moderate-sized hiatal hernia seen on same-day CT abdomen pelvis. Lungs: Bibasilar atelectasis. No pleural effusion or pneumothorax. Bones: Degenerative changes are identified within the thoracic spine. RAD/Chest 1 View (Portable) IMPRESSION: No Acute Findings. Reading Location: [id number] CC: Dr. Zain Merlos DO; Dr. Abe Gilmore MD Steel Sampler: Signed Normal [facility] Chloride assayOrdered By: Lee Donald on 12-25-2024 Chloride [Moles/Vol] 103 mmol/L 98-108 [facility] Chloride assayOrdered By: Genie Merlos on 12-25-2024 Chloride [Moles/Vol] 102 mmol/L 98-108 [facility] Comprehensive Metabolic Prof ilon 12-25-2024 Albumin [Mass/Vol] 4.2 g/dL Normal 3.4-4.8 [facility] Comment on above: Performed By: #### L 100.0100, L501.6710, L500.4050, L101.9900 #### [facility] [address] [place], [address] Albumin/Globulin [Mass ratio] 1.2 {ratio} Normal 0.9-2.4 [facility] Comment on above: Performed By: #### L 100.0100, L501.6710, L500.4050, L101.9900 #### [facility] [address] [place], [address] ALK PHOS 87 U/L Normal 40-129 [facility] Comment on above: Performed By: #### L 100.0100, L501.6710, L500.4050, L101.9900 #### [facility] [address] [place], [address] ALT [Catalytic activity/Vol] 22 U/L Normal <=46 [facility] Comment on above: Performed By: #### L 100.0100, L501.6710, L500.4050, L101.9900 #### [facility] [address] [place], [address] AST [Catalytic activity/Vol] 26 U/L Normal <=37 [facility] Comment on above: Performed By: #### L 100.0100, L501.6710, L500.4050, L101.9900 #### [facility] [address] [place], [address] Bilirubin [Mass/Vol] 0.42 mg/dL Normal 0.00-1.30 [facility] Comment on above: Performed By: #### L 100.0100, L501.6710, L500.4050, L101.9900 #### [facility] [address] [place], [address] BUN/CRE 21.1 RATIO High 10-20 [facility] Comment on above: Performed By: #### L 100.0100, L501.6710, L500.4050, L101.9900 #### [facility] [address] [place], [address] Calcium [Mass/Vol] 9.4 mg/dL Normal 7.6-11.0 [facility] Comment on above: Performed By: #### L 100.0100, L501.6710, L500.4050, L101.9900 #### [facility] [address] [place], [address] Chloride [Moles/Vol] 102 mmol/L Normal 98-108 [facility] Comment on above: Performed By: #### L 100.0100, L501.6710, L500.4050, L101.9900 #### [facility] [address] [place], [address] CO2 [Moles/Vol] 21.9 mmol/L Normal 21.0-32.0 [facility] Comment on above: Performed By: #### L 100.0100, L501.6710, L500.4050, L101.9900 #### [facility] [address] [place], [address] Creatinine [Mass/Vol] 1.03 mg/dL Normal 0.70-1.20 [facility] Comment on above: Performed By: #### L 100.0100, L501.6710, L500.4050, L101.9900 #### [facility] [address] [place], [address] ECRCL 68.77 ml/min Normal 50-250 [facility] Comment on above: Performed By: #### L 100.0100, L501.6710, L500.4050, L101.9900 #### [facility] [address] [place], [address] GAP 12 Normal 5-15 [facility] Comment on above: Performed By: #### L 100.0100, L501.6710, L500.4050, L101.9900 #### [facility] [address] [place], [address] GFR/1.73 sq M.predicted among non-blacks MDRD (S/P/Bld) [Vol rate/Area] 73 mL/min/{1.73_m2} Normal >60 [facility] Comment on above: Result Comment: mL/m in/1.73m2 CKD-EPI Creatinine Equation (2020) Performed By: #### L 100.0100, L501.6710, L500.4050, L101.9900 #### [facility] [address] [place], [address] Globulin (S) [Mass/Vol] 3.4 g/dL Normal 2.2-4.2 [facility] Comment on above: Performed By: #### L 100.0100, L501.6710, L500.4050, L101.9900 #### [facility] [address] [place], [address] Glucose [Mass/Vol] 144 mg/dL High 70-99 [facility] Comment on above: Performed By: #### L 100.0100, L501.6710, L500.4050, L101.9900 #### [facility] [address] [place], [address] Potassium [Moles/Vol] 4.1 mmol/L Normal 3.3-5.1 [facility] Comment on above: Performed By: #### L 100.0100, L501.6710, L500.4050, L101.9900 #### [facility] [address] [place], [address] Sodium [Moles/Vol] 136 mmol/L Normal 133-145 [facility] Comment on above: Performed By: #### L 100.0100, L501.6710, L500.4050, L101.9900 #### [facility] [address] [place], [address] T PROT 7.5 g/dL Normal 5.9-8.4 [facility] Comment on above: Performed By: #### L 100.0100, L501.6710, L500.4050, L101.9900 #### [facility] [address] [place], [address] Urea nitrogen [Mass/Vol] 22 mg/dL High 4-19 [facility] Comment on above: Performed By: #### L 100.0100, L501.6710, L500.4050, L101.9900 #### [facility] [address] [place], [address] Emergency Department Summary on 12-25-2024 Emergency Department Summary [facility] Medical Records Department [address] [place] [address] Emergency Department Summary 12/25/24 MR#: [id number] Acct: [id number] Name: ZION MARSH Rep #: [id number] : 1945 79 From: Steven Donald MD PCP: Dr. Abe Gilmore MD Status:REG ER Location: ED HPI History of Present Illness Chief Complaint: Weakness Informant: patient, spouse/S.O. and family Onset/Context/Timing Onset: Today Timing: Continuous Current Severity: Moderate Maximum Severity: Moderate Narrative Narrative: 79-year-old male history of kidney stones recent left ureteral stent about 2 weeks ago. Seen in the emergency department earlier today. Diagnosed with UTI. The emergency physician spoke to the patient's urologist. Patient and family and urologist was comfortable the patient being discharged home on oral antibiotic. Family states once he is was home. He developed a higher fever and just generalized weakness to the point that he could not stand. No vomiting or diarrhea. Post procedure 2 weeks ago he was on Cipro. He started having reaction to that so they took him off of it. Prior similar symptoms: Yes Recent Illness/Hospitalizat ion: No PFSH PFSH Medical History Kidney stone on left side Loss of hearing Prostate disease Low iron Restless legs Hypertension History of MRSA infection Wears glasses Anxiety Arthritis High cholesterol Gastric reflux Non-smoker CPAP (continuous positive airway pressure) dependence History of pain when walking History of stress test History of echocardiogram Cardiology follow-up encounter BPH (benign prostatic hyperplasia) Dyslipidemia Nephrolithiasis Coronary artery disease Home Medications ???Medication ???Instructions ???Recorded ???Last Taken ???Type aspirin 81 mg tablet,delayed 81 mg PO QHS BLOOD THINNER 5 12/07/24 History release atorvastatin 40 mg tablet 40 mg PO QHS CHOLESTEROL 04/04/15 12/15/24 History finasteride 5 mg tablet 5 mg PO QHS URINATION 04/04/15 History tamsulosin 0.4 mg capsule 0.4 mg PO QHS URINATION 04/04/15 0 12/15/24 History doxazosin 4 mg tablet,extended 4 mg PO QHS HEART 01/23/17 5 History release 24 hr (Cardura XL) cholecalciferol (vitamin D3) 25 25 mcg PO DAILY SUPPLEMENT 2 12/15/24 History mcg (1,000 unit) capsule (Vitamin D3) gabapentin 100 mg capsule 200 mg PO QHS PAIN 12/17/21 History losartan 50 mg tablet 50 mg PO DAILY BP 12/17/21 5 History multivitamin 1 tab PO DAILY SUPPLEMENT 12/17/21 12/16/24 History tramadol 50 mg tablet 50 mg PO 4X/DAY PRN pain 12/08/24 12/15/24 History ibuprofen 600 mg tablet 600 mg PO Q6H PRN pain #20 tabs 12/16/24 Rx acetaminophen 500 mg capsule 1,000 mg PO Q4H PRN pain 12/16/24 12/16/24 History omeprazole 20 mg capsule,delayed 40 mg PO DAILY 12/16/24 12/16/24 H istory release venlafaxine 150 mg 150 mg PO DAILY 12/16/24 12/15/24 History capsule,extended release 24 hr cephalexin 500 mg capsule 500 mg PO Q6 #20 CAPSULES 12/25/24 Unknown Rx Allergy/AdvReac Type Severity Reaction Status Date / Time No Known Allergies Allergy Verified 12/25/24 20:10 Surgical History S/P umbilical hernia repair, follow-up exam Hx of bilateral cataract extraction Hx of hernia repair Hx of appendectomy History of carpal tunnel release of both wrists Hx of repair of right rotator cuff Hx of repair of left rotator cuff Hx of bilateral hip replacements Social History household members: spouse Smoking Status: Never smoker ROS ROS ED Constitutional Constitutional ED: Reports fever(s) Eyes Eyes: Denies blurry vision ENT ENT ED: Denies ear pain Cardiovascular Cardiovascular: Denies chest pain Gastrointestinal Gastrointestinal: Denies abdominal pain, diarrhea, nausea or vomiting Genitourinary Genitourinary ED: Denies dysuria or hematuria Musculoskeletal Musculoskeletal: Denies arthralgias Integumentary Denies abscess Neurologic Neurologic: Reports weakness; Denies headache(s) Psychiatric Psychiatric: Denies anxiety Endocrine Endocrinology: Denies cold intolerance Hematologic/Lymphati c Hematologic/Lymphati c: Reports none Allergic/Immunologic Allergic/Immunologic ED: Denies mouth swelling, tongue swelling or urticaria EXAM Physical Exam Narrative Exam Narrative: 79-year-old male sitting upright in bed. Clinically does not feel well. Family at bedside. His initial triage temp was 99.8 I retook it it was 103. Blood pressure 135/59. Pulse ox 94% on room air no hypoxia. H EENT exam pupils round reactive light. Dry mucous membranes. (more content not included)... Normal [facility] Emergency Department Summary [facility] Medical Records Department [address] [place] [address] Emergency Department Summary 12/25/24 MR#: [id number] Acct: [id number] Name: ZION MARSH Rep #: [id number] : 1945 79 From: Zain Merlos DO PCP: Dr. Abe Gilmore MD Status:DEP ER Location: ED ADDENDUM by Dr. Bill Gary MD on 12/27/24 at 0816 Patient was treated with Rocephin in the emergency department. From chart review it was determined that he was not prescribed antibiotics. Based on culture and sensitivity levofloxacin 500 mg tab 1 x 7 days was electronically transmitted to his designated pharmacy. Charge nurse will call to see how he is doing and let him know that he needs a prescription. 12/27/24 0816 Cosigner Signature (if applicable): cc: Dr. Abe Gilmore MD * Signed HPI History of Present Illness Chief Complaint: Weakness Detail of Chief Complaint: Fever and generalized weakness Informant: patient and family Narrative Narrative: Patient presents to the emergency department complaint of fever and generalized weakness. Patient states that he had a ureteral stent placed for a kidney stone 2 weeks ago. He had been on Cipro but caused him to have lesions in his mouth so he was taken off the Cipro and not started any new antibiotic. Had been doing relatively well in his schedule to have his stent out in 2 days. This morning woke up and had a fever. Feels weak. Has minimal cough. Denies sick contacts. He has mild dysuria. Denies hematuria. [facility] Medical History Kidney stone on left side Loss of hearing Prostate disease Low iron Restless legs Hypertension History of MRSA infection Wears glasses Anxiety Arthritis High cholesterol Gastric reflux Non-smoker CPAP (continuous positive airway pressure) dependence History of pain when walking History of stress test History of echocardiogram Cardiology follow-up encounter BPH (benign prostatic hyperplasia) Dyslipidemia Nephrolithiasis Coronary artery disease Home Medications ???Medication ???Instructions ???Recorded ???Last Taken ???Type aspirin 81 mg tablet,delayed 81 mg PO QHS BLOOD THINNER 5 12/07/24 History release Held on 12/14/24. Instructions: Resume on 12/28/24. atorvastatin 40 mg tablet 40 mg PO QHS CHOLESTEROL 04/04/15 12/15/24 History finasteride 5 mg tablet 5 mg PO QHS URINATION 04/04/15 History tamsulosin 0.4 mg capsule 0.4 mg PO QHS URINATION 04/04/15 0 12/15/24 History doxazosin 4 mg tablet,extended 4 mg PO QHS HEART 01/23/17 5 History release 24 hr (Cardura XL) cholecalciferol (vitamin D3) 25 25 mcg PO DAILY SUPPLEMENT 2 12/15/24 History mcg (1,000 unit) capsule (Vitamin D3) gabapentin 100 mg capsule 200 mg PO QHS PAIN 12/17/21 History losartan 50 mg tablet 50 mg PO DAILY BP 12/17/21 5 History multivitamin 1 tab PO DAILY SUPPLEMENT 12/17/21 12/16/24 History tramadol 50 mg tablet 50 mg PO 4X/DAY PRN pain 12/08/24 12/15/24 History ibuprofen 600 mg tablet 600 mg PO Q6H PRN pain #20 tabs 12/16/24 Rx acetaminophen 500 mg capsule 1,000 mg PO Q4H PRN pain 12/16/24 12/16/24 History ciprofloxacin HCl 500 mg tablet 500 mg PO BID 10 days #20 tabs Unknown Rx (Cipro) omeprazole 20 mg capsule,delayed 40 mg PO DAILY 12/16/24 12/16/24 H istory release venlafaxine 150 mg 150 mg PO DAILY 12/16/24 12/15/24 History capsule,extended release 24 hr cephalexin 500 mg capsule 500 mg PO Q6 #20 CAPSULES 12/25/24 Unknown Rx Allergy/AdvReac Type Severity Reaction Status Date / Time No Known Allergies Allergy Verified 12/16/24 07:59 Surgical History S/P umbilical hernia repair, follow-up exam Hx of bilateral cataract extraction Hx of hernia repair Hx of appendectomy History of carpal tunnel release of both wrists Hx of repair of right rotator cuff Hx of repair of left rotator cuff Hx of bilateral hip replacements Social History household members: spouse Smoking Status: Never smoker ROS ROS ED Review of Systems ROS Unobtainable: other Constitutional Constitutional ED: Reports fever(s) and lethargy; Denies chills, sweats or weight loss Eyes Eyes: Denies blurry vision, change in vision or diplopia ENT ENT ED: Denies rhinorrhea or sore throat Cardiovascular Cardiovascular: Denies chest pain, orthopnea or racing heartbeat Respiratory/Chest Respiratory/Chest: Denies cough, dyspnea, dyspnea on exertion, orthopnea or sputum Gastrointestinal Gastrointestinal: Denies abdominal pain, diarrhea, nausea or vomiting Genitourinary Genitourinary ED: Reports dysuria; (more content not included)... [facility] Eosinophil percentageOrdered By: Steven Donald on 12-25-2024 Eosinophils/100 WBC (Bld) 0.0 % 0-5 [facility] Eosinophil percentageOrdered By: Zain Merlos on 12-25-2024 Eosinophils/100 WBC (Bld) 0.3 % 0-5 [facility] Erythrocyte distribution wid th ratioOrdered By: Steven Donald on 12-25-2024 Erythrocyte distribution width (RBC) [Ratio] 12.6 % 11.6-14.6 [facility] Erythrocyte distribution wid th ratioOrdered By: Zian Merlos on 12-25-2024 Erythrocyte distribution width (RBC) [Ratio] 12.2 % 11.6-14.6 [facility] Erythrocyte distribution wid th standard deviationOrdered By: Steven Donald on 12-25-2024 Erythrocyte distribution width (RBC) [Ratio] 40.9 fl 35.1-43.9 [facility] Erythrocyte distribution wid th standard deviationOrdered By: Zain Merlos on 12-25-2024 Erythrocyte distribution width (RBC) [Ratio] 40.3 fl 35.1-43.9 [facility] Glomerular filtration rate ( GFR) estimation/1.73 sq m using serum, plasma, or whole bOrdered By: Steven Donald on 12-25-2024 GFR/1.73 sq M.predicted among non-blacks MDRD (S/P/Bld) [Vol rate/Area] 68 mL/min/{1.73_m2} >60 [facility] Comment on above: mL/min/1.73m2 CKD-EP I Creatinine Equation (2020) Glomerular filtration rate ( GFR) estimation/1.73 sq m using serum, plasma, or whole bOrdered By: Zain Merlos on 12-25-2024 GFR/1.73 sq M.predicted among non-blacks MDRD (S/P/Bld) [Vol rate/Area] 73 mL/min/{1.73_m2} >60 [facility] Comment on above: mL/min/1.73m2 CKD-EP I Creatinine Equation (2020) Hematocrit Auto (Bld) [Volum e fraction]Ordered By: Steven Donald on 12-25-2024 Hematocrit (Bld) [Volume fraction] 34.8 % Low 40-54 [facility] Hematocrit Auto (Bld) [Volum e fraction]Ordered By: Zain Merlos on 12-25-2024 Hematocrit (Bld) [Volume fraction] 36.8 % Low 40-54 [facility] Hemoglobin measurementOrdere d By: Steven Donald on 12-25-2024 Hemoglobin (Bld) [Mass/Vol] 11.9 g/dL Low 13.0-16.5 [facility] Hemoglobin measurementOrdere d By: Zain Merlos on 12-25-2024 Hemoglobin (Bld) [Mass/Vol] 12.3 g/dL Low 13.0-16.5 [facility] Immature granulocytes/100 WB C Auto (Bld)Ordered By: Steven Donald on 12-25-2024 Immature granulocytes/100 WBC (Bld) 0.900 % 0.0-0.9 [facility] Comment on above: IG% - Immature Granu locytes (promyelocytes, myelocytes and metamyelocytes) > 1% indicates that a LEFT SHIFT is Present. Immature granulocytes/100 WB C Auto (Bld)Ordered By: aZin Merlos on 12-25-2024 Immature granulocytes/100 WBC (Bld) 0.700 % 0.0-0.9 [facility] Comment on above: IG% - Immature Granu locytes (promyelocytes, myelocytes and metamyelocytes) > 1% indicates that a LEFT SHIFT is Present. Influenza virus A and B and SARS-CoV-2 (COVID-19) and Respiratory syncytial virus RNAOrdered By: Zain Merlos on 12-25-2024 SARS-CoV-2 (COVID-19) RNA PAMELA+probe Ql (Unsp spec) [facility] Ketones Test strip Ql (U)Ord ered By: Zain Merlos on 12-25-2024 Ketones Ql (U) Negative Negative [facility] - Chemistry and C hemistry - challengeOrdered By: Zain Merlos on 12-25-2024 AST [Catalytic activity/Vol] 26 U/L <38 [facility] Lactic Acidon 12-25-2024 Lactate [Moles/Vol] mmol/L Normal 0.0-2.0 [facility] Comment on above: Order Comment: Y Performed By: #### L 100.0100, L501.6710, L500.4050, L101.9900 #### [facility] [address] [place], [address] Lactic acid measurementOrder ed By: Zain Merlos on 12-25-2024 Lactate [Moles/Vol] mmol/L 0.0-2.0 [facility] M100.678on 12-25-2024 M100.678 SARS-CoV-2 (COVID 19) Negative INFLUENZA A Negative INFLUENZA B Negative RSV PCR Negative Normal [facility] Comment on above: Performed By: #### M 100.678, L400.0001 ####[facility] [address] [place], [address] MCV (mean corpuscular volume ) determinationOrdered By: Steven Donald on 12-25-2024 MCV (RBC) [Entitic vol] 89.0 fL 80-94 [facility] MCV (mean corpuscular volume ) determinationOrdered By: Zain Merlos on 12-25-2024 MCV (RBC) [Entitic vol] 90.4 fL 80-94 [facility] Mean corpuscular hemoglobin (MCH) determinationOrdered By: Steven Donald on 12-25-2024 MCH (RBC) [Entitic mass] 30.4 pg 27.0-32.0 [facility] Mean corpuscular hemoglobin (MCH) determinationOrdered By: Zain Merlos on 12-25-2024 MCH (RBC) [Entitic mass] 30.2 pg 27.0-32.0 [facility] Mean corpuscular hemoglobin concentration (MCHC) determinationOrdered By: Steven Donald on 12-25-2024 MCHC (RBC) [Mass/Vol] 34.2 g/dL 32-36 [facility] Mean corpuscular hemoglobin concentration (MCHC) determinationOrdered By: Zain Merlos on 12-25-2024 MCHC (RBC) [Mass/Vol] 33.4 g/dL 32-36 [facility] Mean platelet volume determi nationOrdered By: Steven Donald on 12-25-2024 Platelet mean volume (Bld) [Entitic vol] 9.1 fL 6.2-12.0 [facility] Mean platelet volume determi nationOrdered By: Zain Merlos on 12-25-2024 Platelet mean volume (Bld) [Entitic vol] 9.6 fL 6.2-12.0 [facility] Microscopic analysis of urin e for red blood cells (RBC)Ordered By: Zain Merlos on 12-25-2024 Microscopic analysis of urine for red blood cells (RBC) 10-25 SEEN /hpf 0-5 [facility] Monocyte percentageOrdered B y: Steven Donald on 12-25-2024 Monocytes/100 WBC (Bld) 3.4 % 0-10 [facility] Monocyte percentageOrdered B y: Zain Merlos on 12-25-2024 Monocytes/100 WBC (Bld) 3.0 % 0-10 [facility] Mucus LM Ql (Urine sed)Order ed By: Zain Merlos on 12-25-2024 Mucus Ql (Urine sed) 0 SEEN /hpf [facility] Neutrophil percentageOrdered By: Steven Donald on 12-25-2024 Neutrophils/100 WBC (Bld) 91.4 % High 47-70 [facility] Neutrophil percentageOrdered By: Zain Merlos on 12-25-2024 Neutrophils/100 WBC (Bld) 91.3 % High 47-70 [facility] Nitrite Test strip Ql (U)Ord ered By: Zain Merlos on 12-25-2024 Nitrite Ql (U) Positive High Negative [facility] No Panel InformationOrdered By: Zain Merlos on 12-25-2024 26 U/L <38 [facility] Nucleated red blood cell per centageOrdered By: Steven Donald on 12-25-2024 Nucleated RBC/100 WBC (Bld) [Ratio] 0 % 0-5 [facility] Nucleated red blood cell per centageOrdered By: Zain Merlos on 12-25-2024 Nucleated RBC/100 WBC (Bld) [Ratio] 0 % 0-5 [facility] Platelet countOrdered By: Lee Donald on 12-25-2024 Platelets (Bld) [#/Vol] 192 10*3/uL 150-450 [facility] Platelet countOrdered By: Genie Merlos on 12-25-2024 Platelets (Bld) [#/Vol] 225 10*3/uL 150-450 [facility] Potassium measurement (mass/ volume)Ordered By: Steven Donald on 12-25-2024 Potassium (Unsp spec) [Mass/Vol] 3.8 mmol/L 3.3-5.1 [facility] Potassium measurement (mass/ volume)Ordered By: Zain Merlos on 12-25-2024 Potassium (Unsp spec) [Mass/Vol] 4.1 mmol/L 3.3-5.1 [facility] Protein Test strip Ql (U)Ord ered By: Zain Merlos on 12-25-2024 Protein Ql (U) TNP [facility] Comment on above: Test not performed RBC Auto (Bld) [#/Vol]Ordere d By: Steven Donald on 12-25-2024 RBC (Bld) [#/Vol] 3.91 10*6/uL Low 4.6-6.2 [facility] RBC Auto (Bld) [#/Vol]Ordere d By: Zain Merlos on 12-25-2024 RBC (Bld) [#/Vol] 4.07 10*6/uL Low 4.6-6.2 [facility] Serum creatinine measurement (mass/volume)Ordered By: Steven Donald on 12-25-2024 Creatinine [Mass/Vol] 1.10 mg/dL 0.70-1.20 [facility] Serum creatinine measurement (mass/volume)Ordered By: Zain Merlos on 12-25-2024 Creatinine [Mass/Vol] 1.03 mg/dL 0.70-1.20 [facility] Serum globulin measurementOr dered By: Zain Merlos on 12-25-2024 Globulin (S) [Mass/Vol] 3.4 g/dL 2.2-4.2 [facility] Serum glucose measurement (m ass/volume)Ordered By: Steven Donald on 12-25-2024 Glucose [Mass/Vol] 134 mg/dL High 70- [facility] Serum glucose measurement (m ass/volume)Ordered By: Zain Merlos on 12-25-2024 Glucose [Mass/Vol] 144 mg/dL High 70-99 [facility] Serum or plasma alanine [place] otransferase (ALT) measurementOrdered By: Zain Merlos on 12-25-2024 ALT [Catalytic activity/Vol] 22 U/L <47 [facility] Serum or plasma albumin ibrahima urement (mass/volume)Ordered By: Zain Merlos on 12-25-2024 Albumin [Mass/Vol] 4.2 g/dL 3.4-4.8 [facility] Serum or plasma albumin/glob ulin mass ratioOrdered By: Zain Merlos on 12-25-2024 Albumin/Globulin [Mass ratio] 1.2 {ratio} 0.9-2.4 [facility] Serum or plasma alkaline [place] sphatase measurementOrdered By: Zain Merlos on 12-25-2024 ALP [Catalytic activity/Vol] 87 U/L 40-129 [facility] Serum or plasma calcium ibrahima urement (mass/volume)Ordered By: Steven Donald on 12-25-2024 Calcium [Mass/Vol] 8.9 mg/dL 7.6-11.0 [facility] Serum or plasma calcium ibrahima urement (mass/volume)Ordered By: Zain Merlos on 12-25-2024 Calcium [Mass/Vol] 9.4 mg/dL 7.6-11.0 [facility] Serum or plasma urea nitroge n measurement (mass/volume)Ordered By: Steven Donald on 12-25-2024 Urea nitrogen [Mass/Vol] 25 mg/dL [facility] 11-12 [facility] Serum or plasma urea nitroge n measurement (mass/volume)Ordered By: Zain Merlos on 12-25-2024 Urea nitrogen [Mass/Vol] 22 mg/dL [facility] 11-12 [facility] Sodium levelOrdered By: Steven Donald on 12-25-2024 Sodium [Moles/Vol] 134 mmol/L 133-145 [facility] Sodium levelOrdered By: Joana Acevesclarence on 12-25-2024 Sodium [Moles/Vol] 136 mmol/L 133-145 [facility] Squamous epithelial cells de tection in urine sediment by light microscopyOrdered By: Zain Acevesclarence on 12-25-2024 Epithelial cells.squamous LM Ql (Urine sed) 0 SEEN /hpf 0-5 [facility] Total proteinOrdered By: Yun Acevesclarence on 12-25-2024 Protein [Mass/Vol] 7.5 g/dL 5.9-8.4 [facility] Urinalysis, Completeon 12-25 RBC 10-25 SEEN Normal [address] [place] [address] Comment on above: Order Comment: SILVESTRE CTOR TO SPECIFY Performed By: #### M 100.678, L400.0001 ####[facility] [address] [place], [address] WBC 10-25 SEEN Normal [address] [place] [address] Comment on above: Order Comment: SILVESTRE CTOR TO SPECIFY Performed By: #### M 100.678, L400.0001 ####[facility] [address] [place], [address] BACTERIA 0 SEEN Normal None Seen [facility] Comment on above: Order Comment: SILVESTRE CTOR TO SPECIFY Performed By: #### M 100.678, L400.0001 ####[facility] [address] [place], [address] EPI,SQUAMOUS 0 SEEN Normal [address] [place] [address] Comment on above: Order Comment: SILVESTRE CTOR TO SPECIFY Performed By: #### M 100.678, L400.0001 ####[facility] [address] [place], [address] Mucus Ql (Urine sed) 0 SEEN Normal [facility] Comment on above: Order Comment: SILVESTRE CTOR TO SPECIFY Performed By: #### M 100.678, L400.0001 ####[facility] [address] [place], [address] Urine clarityOrdered By: Yun Merlos on 12-25-2024 Clarity (U) Sl. Cloudy Clear [facility] Urine color determinationOrd ered By: Zain Merlos on 12-25-2024 Color (U) Yellow Yellow [facility] Urine cultureOrdered By: Rem us Merlos on 12-25-2024 Bacteria identified Cx Nom (U) Pseudomonas aeruginosa Abnormal [facility] Urine glucose detectionOrder ed By: Zain Merlos on 12-25-2024 Glucose Ql (U) Normal mg/dl Normal [facility] Urine leukocyte esterase det ection by dipstickOrdered By: Zain Merlos on 12-25-2024 Leukocyte esterase Test strip Ql (U) 100 /ul High Negative [facility] Urine pHOrdered By: Zain Zaragoza gur on 12-25-2024 pH (U) 7.0 [pH] 5.0 - 8.0 [facility] Urine sediment bacteria coun t by microscopy (number/high power field)Ordered By: Zain Merlos on 12-25-2024 Bacteria LM.HPF (Urine sed) [#/Area] 0 /[HPF] None Seen [facility] Urine specific gravity measu rementOrdered By: Zain Merlos on 12-25-2024 Specific gravity (U) [Rel density] 1.005 1.002-1.030 [facility] Urine urobilinogen measureme ntOrdered By: Zain Merlos on 12-25-2024 Urobilinogen Ql (U) Normal mg/dl Normal [facility] White blood cell (WBC) count Ordered By: Steven Donald on 12-25-2024 WBC (Bld) [#/Vol] 17.8 10*3/uL High 4.4-11.0 [facility] White blood cell (WBC) count Ordered By: Zain Merlos on 12-25-2024 WBC (Bld) [#/Vol] 14.7 10*3/uL High 4.4-11.0 [facility] White blood cell countOrdere d By: Zain Merlos on 12-25-2024 White blood cell count 10-25 SEEN /hpf 0-5 [facility] Urine Cultureon 12-18-2024 [facility] Pseudomonas aeruginosa [place] Count 80,000-100,000 Pseudomonas aeruginosa: REACTION Amikacin Islt MELODIE 2 Cefepime Islt MELODIE 2 S Ciprofloxacin Islt MELODIE 0.12 S Imipenem Islt MELODIE 2 S levoFLOXacin Islt MELODIE 0.5 S Meropenem Islt MELODIE <=0.25 S Pip+Tazo Islt MELODIE 16 S Tobramycin Islt MELODIE <=1 S Normal [facility] Comment on above: Performed By: #### L 100.0100, L501.6710, L500.4050, L101.9900 #### [facility] [address] [place], [address] Abdomen Single Viewon 2024 Abdomen Single View [facility] Imaging Services [address] [place] [address] Abdomen Single View MR#: [id number] Acct: [id number] Name: ZION MARSH Rep #: [id number] : 1945 M 79 From: Otoniel Hairston MD PCP: Dr. Abe Gilmore MD Status: REG ER Study: Abdomen Single View Date of Exam: 12/16/24 Exam# [id number] Ordering Dr: Steven Donald MD EXAM: XR Abdomen, 1 View CLINICAL INDICATION: CHECK URETERAL STENT PLACEMENT TECHNIQUE: Frontal supine view of the abdomen/pelvis. COMPARISON: No relevant prior studies available. FINDINGS: GASTROINTESTINAL TRACT: Unremarkable. No dilation. ORGANS: Left renal calculi, largest measuring up to 9 mm with indwelling double-J ureteral stent. BONES/JOINTS: Unremarkable. No acute fracture. RAD/Abdomen Single View IMPRESSION: Left renal calculi, largest measuring up to 9 mm with indwelling double-J ureteral stent. Reading [facility] CC: Dr. Steven Donald MD; Dr. Abe Gilmore MD Steel Sampler: Signed Normal [facility] Absolute lymphocyte countOrd ered By: Steven Donald on 12-16-2024 Lymphocytes Auto (Unsp spec) [#/Vol] 0.66 10*3/uL Low 0.83-4.51 [facility] Absolute neutrophil countOrd ered By: Steven Donald on 12-16-2024 Neutrophils (Bld) [#/Vol] 9.7 10*3/uL High 2.0-7.7 [facility] Anion gap in Serum or Plasma Ordered By: Steven Donald on 12-16-2024 Anion gap [Moles/Vol] 11 mmol/L 5-15 [facility] Automated blood erythrocyte countOrdered By: Steven Donald on 12-16-2024 RBC (Bld) [#/Vol] 4.39 10*6/uL Low 4.6-6.2 [facility] Comment on above: Performed By: #### L 100.0100, L501.6710, L500.4050, L101.9900 #### [facility] [address] [place], [address] Automated blood hematocrit ( percentage)Ordered By: Steven Donald on 12-16-2024 Hematocrit (Bld) [Volume fraction] 40.1 % 40-54 [facility] Comment on above: Performed By: #### L 100.0100, L501.6710, L500.4050, L101.9900 #### [facility] [address] [place], [address] Automated lymphocyte count a s percentage of total leukocytesOrdered By: Steven Donald on 12-16-2024 Lymphocytes/100 WBC Auto (Unsp spec) 5.8 % Low 19-41 [facility] BUN/creatinine ratioOrdered By: Steven Donald on 12-16-2024 Urea nitrogen/Creatinine [Mass ratio] 15.3 mg/mg 10- [facility] Basic Metabolic Profile (BMP )on 12-16-2024 BUN/CRE 15.3 RATIO Normal - [facility] Comment on above: Performed By: #### L 100.0100, L501.6710, L500.4050, L101.9900 #### [facility] [address] [place], [address] ECRCL 72.22 ml/min Normal 50-250 [facility] Comment on above: Performed By: #### L 100.0100, L501.6710, L500.4050, L101.9900 #### [facility] [address] [place], [address] GAP 11 Normal 5-15 [facility] Comment on above: Performed By: #### L 100.0100, L501.6710, L500.4050, L101.9900 #### [facility] [address] [place], [address] Potassium [Moles/Vol] 4.4 mmol/L Normal 3.3-5.1 [facility] Comment on above: Performed By: #### L 100.0100, L501.6710, L500.4050, L101.9900 #### [facility] [address] [place], [address] Basophil percentageOrdered B y: Steven Donald on 12-16-2024 Basophils/100 WBC (Bld) 0.4 % 0-1 [facility] Comment on above: Performed By: #### L 100.0100, L501.6710, L500.4050, L101.9900 #### [facility] [address] [place], [address] Bilirubin Test strip Ql (U)O rdered By: Steven Donald on 12-16-2024 Bilirubin Ql (U) Negative Negative [facility] CBC W/Diff, Automatedon 11-25 Absolute Lymph 0.66 X10 3/uL Low 0.83-4.51 [facility] Comment on above: Performed By: #### L 100.0100, L501.6710, L500.4050, L101.9900 #### [facility] [address] [place], [address] Absolute Neut 9.7 X10 3/uL High 2.0-7.7 [facility] Comment on above: Performed By: #### L 100.0100, L501.6710, L500.4050, L101.9900 #### [facility] [address] [place], [address] IG% 0.300 Normal 0.0-0.9 [facility] Comment on above: Result Comment: IG% - Immature Granulocytes (promyelocytes, myelocytes and metamyelocytes) > 1% indicates that a LEFT SHIFT is Present. Performed By: #### L 100.0100, L501.6710, L500.4050, L101.9900 #### [facility] [address] [place], [address] Lymphocytes/100 WBC (Bld) 5.8 % Low 19-41 [facility] Comment on above: Performed By: #### L 100.0100, L501.6710, L500.4050, L101.9900 #### [facility] [address] [place], [address] Nucleated RBC (Bld) [#/Vol] 0 10*3/uL Normal 0-5 [facility] Comment on above: Performed By: #### L 100.0100, L501.6710, L500.4050, L101.9900 #### [facility] [address] [place], [address] RDW SD 41.6 fl Normal 35.1-43.9 [facility] Comment on above: Performed By: #### L 100.0100, L501.6710, L500.4050, L101.9900 #### [facility] [address] [place], [address] Carbon dioxide, total [Moles /volume] in Central venous bloodOrdered By: Steven Donald on 12-16-2024 CO2 [Moles/Vol] 24.3 mmol/L 21.0-32.0 [facility] Comment on above: Performed By: #### L 100.0100, L501.6710, L500.4050, L101.9900 #### [facility] [address] [place], [address] Chloride assayOrdered By: Lee Donald on 12-16-2024 Chloride [Moles/Vol] 102 mmol/L 98-108 [facility] Comment on above: Performed By: #### L 100.0100, L501.6710, L500.4050, L101.9900 #### [facility] [address] [place], [address] Emergency Department Summary on 12-16-2024 Emergency Department Summary [facility] Medical Records Department [address] [place] [address] Emergency Department Summary 12/16/24 MR#: [id number] Acct: [id number] Name: ZION MARSH Rep #: [id number] : 1945 79 From: Steven Donald MD PCP: Dr. Abe Gilmore MD Status:REG ER Location: ED HPI History of Present Illness Chief Complaint: Flank Pain Informant: patient Onset/Context/Timing Onset: Today and Hours Context: Gradual Onset Timing: Continuous Current Severity: Mild Maximum Severity: Mild Narrative Narrative: 79-year-old male history of kidney stones, hypertension and CAD. On Thursday he had a procedure done for a kidney stone with a stent placed. Since he was feeling well this morning he woke up he was a little disoriented and had chills. Did not realize he had a fever. Was treated at home with ibuprofen and Tylenol. Is having mild dysuria. Denies any cough. Denies any abdominal pain. Prior similar symptoms: No Recent Illness/Hospitalizat ion: No PFSH PFSH Medical History Kidney stone on left side Loss of hearing Prostate disease Low iron Restless legs Hypertension History of MRSA infection Wears glasses Anxiety Arthritis High cholesterol Gastric reflux Non-smoker CPAP (continuous positive airway pressure) dependence History of pain when walking History of stress test History of echocardiogram Cardiology follow-up encounter BPH (benign prostatic hyperplasia) Dyslipidemia Nephrolithiasis Coronary artery disease Home Medications ???Medication ???Instructions ???Recorded ???Last Taken ???Type aspirin 81 mg tablet,delayed 81 mg PO QHS BLOOD THINNER 5 12/07/24 History release Held on 12/14/24. Instructions: Resume on 12/28/24. atorvastatin 40 mg tablet 40 mg PO QHS CHOLESTEROL 04/04/15 12/15/24 History finasteride 5 mg tablet 5 mg PO QHS URINATION 04/04/15 History tamsulosin 0.4 mg capsule 0.4 mg PO QHS URINATION 04/04/15 0 12/15/24 History doxazosin 4 mg tablet,extended 4 mg PO QHS HEART 01/23/17 5 History release 24 hr (Cardura XL) cholecalciferol (vitamin D3) 25 25 mcg PO DAILY SUPPLEMENT 2 12/15/24 History mcg (1,000 unit) capsule (Vitamin D3) gabapentin 100 mg capsule 200 mg PO QHS PAIN 12/17/21 History losartan 50 mg tablet 50 mg PO DAILY BP 12/17/21 5 History multivitamin 1 tab PO DAILY SUPPLEMENT 12/17/21 12/16/24 History tramadol 50 mg tablet 50 mg PO 4X/DAY PRN pain 12/08/24 12/15/24 History ibuprofen 600 mg tablet 600 mg PO Q6H PRN pain #20 tabs 12/16/24 Rx acetaminophen 500 mg capsule 1,000 mg PO Q4H PRN pain 12/16/24 12/16/24 History ciprofloxacin HCl 500 mg tablet 500 mg PO BID 10 days #20 tabs Unknown Rx (Cipro) omeprazole 20 mg capsule,delayed 40 mg PO DAILY 12/16/24 12/16/24 H istory release venlafaxine 150 mg 150 mg PO DAILY 12/16/24 12/15/24 History capsule,extended release 24 hr Allergy/AdvReac Type Severity Reaction Status Date / Time No Known Allergies Allergy Verified 12/16/24 07:59 Surgical History S/P umbilical hernia repair, follow-up exam Hx of bilateral cataract extraction Hx of hernia repair Hx of appendectomy History of carpal tunnel release of both wrists Hx of repair of right rotator cuff Hx of repair of left rotator cuff Hx of bilateral hip replacements Social History household members: spouse Smoking Status: Never smoker ROS ROS ED ROS Narrative Fever and chills. Constitutional Constitutional ED: Reports chills and fever(s) Eyes Eyes: Denies blurry vision ENT ENT ED: Denies ear pain Cardiovascular Cardiovascular: Denies chest pain Respiratory/Chest Respiratory/Chest: Denies cough or dyspnea Gastrointestinal Gastrointestinal: Denies abdominal pain Genitourinary Genitourinary ED: Reports dysuria; Denies hematuria Musculoskeletal Musculoskeletal: Denies arthralgias or back pain Integumentary Denies abscess Neurologic Neurologic: Denies headache(s) Psychiatric Psychiatric: Denies anxiety Endocrine Endocrinology: Denies cold intolerance Hematologic/Lymphati c Hematologic/Lymphati c: Reports none Allergic/Immunologic Allergic/Immunologic ED: Denies mouth swelling, tongue swelling or urticaria EXAM Physical Exam Narrative Exam Narrative: 79-year-old male vital signs stable he does have a fever of 101.1. Pulse ox is 96% on room air no hypoxia. H EENT exam pupils round react light. Moist mucous membranes. Neck nontender no lymphadenopathy. Lungs clear to auscultation bilaterally. Heart regular rhythm no murmur. Rate about 80. Chest wall ribs nonte (more content not included)... Normal [facility] Eosinophil percentageOrdered By: Steven Donald on 12-16-2024 Eosinophils/100 WBC (Bld) 3.9 % 0-5 [facility] Comment on above: Performed By: #### L 100.0100, L501.6710, L500.4050, L101.9900 #### [facility] [address] [place], [place], [id number] Erythrocyte distribution wid th ratioOrdered By: Steven Donald on 12-16-2024 Erythrocyte distribution width (RBC) [Ratio] 12.6 % 11.6-14.6 [facility] Comment on above: Performed By: #### L 100.0100, L501.6710, L500.4050, L101.9900 #### [facility] [address] [place], [address] Erythrocyte distribution wid th standard deviationOrdered By: Steven Donald on 12-16-2024 Erythrocyte distribution width (RBC) [Ratio] 41.6 fl 35.1-43.9 [facility] Glomerular filtration rate ( GFR) estimation/1.73 sq m using serum, plasma, or whole bOrdered By: Steven Donald on 12-16-2024 GFR/1.73 sq M.predicted among non-blacks MDRD (S/P/Bld) [Vol rate/Area] 77 mL/min/{1.73_m2} >60 [facility] Comment on above: mL/min/1.73m2 CKD-EP I Creatinine Equation (2020) Result Comment: mL/m in/1.73m2 CKD-EPI Creatinine Equation (2020) Performed By: #### L 100.0100, L501.6710, L500.4050, L101.9900 #### [facility] [address] [facility] [place], [place], [address] Hemoglobin measurementOrdere d By: Steven Donald on 12-16-2024 Hemoglobin (Bld) [Mass/Vol] 13.4 g/dL 13.0-16.5 [facility] Comment on above: Performed By: #### L 100.0100, L501.6710, L500.4050, L101.9900 #### [facility] [address] [place], [address] Immature granulocytes/100 WB C Auto (Bld)Ordered By: Steven Donald on 12-16-2024 Immature granulocytes/100 WBC (Bld) 0.300 % 0.0-0.9 [facility] Comment on above: IG% - Immature Granu locytes (promyelocytes, myelocytes and metamyelocytes) > 1% indicates that a LEFT SHIFT is Present. Ketones Test strip Ql (U)Ord ered By: Steven Donald on 12-16-2024 Ketones Ql (U) Negative Negative [facility] Lactic acid measurementOrder ed By: Steven Donald on 12-16-2024 Lactate [Moles/Vol] 2.0 mmol/L Normal 0.0-2.0 [facility] Comment on above: Critical Result(s) C alled at: 12/16/2024-09:10 by: Juan Pablo Man. Results read back by same. Order Comment: Y Result Comment: Crit ical Result(s) Called at: 12/16/2024-09:10 by: Juan Pablo Man.??Results read back by same. Performed By: #### L 100.0100, L501.6710, L500.4050, L101.9900 #### [facility] [address] [place], [address] MCV (mean corpuscular volume ) determinationOrdered By: Steven Donald on 12-16-2024 MCV (RBC) [Entitic vol] 91.3 fL 80-94 [facility] Comment on above: Performed By: #### L 100.0100, L501.6710, L500.4050, L101.9900 #### [facility] [address] [place], [address] Mean corpuscular hemoglobin (MCH) determinationOrdered By: Steven Donald on 12-16-2024 MCH (RBC) [Entitic mass] 30.5 pg 27.0-32.0 [facility] Comment on above: Performed By: #### L 100.0100, L501.6710, L500.4050, L101.9900 #### [facility] [address] [place], [address] Mean corpuscular hemoglobin concentration (MCHC) determinationOrdered By: Steven Donald on 12-16-2024 MCHC (RBC) [Mass/Vol] 33.4 g/dL Normal 32-36 [facility] Comment on above: Performed By: #### L 100.0100, L501.6710, L500.4050, L101.9900 #### [facility] [address] [place], [address] Mean platelet volume determi nationOrdered By: Steven Donald on 12-16-2024 Platelet mean volume (Bld) [Entitic vol] 9.8 fL Normal 6.2-12.0 [facility] Comment on above: Performed By: #### L 100.0100, L501.6710, L500.4050, L101.9900 #### [facility] [address] [place], [place], [id number] Microscopic analysis of urin e for red blood cells (RBC)Ordered By: Steven Donald on 12-16-2024 Microscopic analysis of urine for red blood cells (RBC) > 100 SEEN /hpf 0-5 [facility] Monocyte percentageOrdered B y: Steven Donald on 12-16-2024 Monocytes/100 WBC (Bld) 4.4 % 0-10 [facility] Comment on above: Performed By: #### L 100.0100, L501.6710, L500.4050, L101.9900 #### [facility] [address] [place], [place], [id number] Mucus LM Ql (Urine sed)Order ed By: Steven Donald on 12-16-2024 Mucus Ql (Urine sed) 0 SEEN /hpf [facility] Neutrophil percentageOrdered By: Steven Donald on 12-16-2024 Neutrophils/100 WBC (Bld) 85.2 % High 47-70 [facility] Comment on above: Performed By: #### L 100.0100, L501.6710, L500.4050, L101.9900 #### [facility] [address] [place], [place], [id number] Nitrite Test strip Ql (U)Ord ered By: Steven Donald on 12-16-2024 Nitrite Ql (U) Positive High Negative [facility] Nucleated red blood cell per centageOrdered By: Steven Donald on 12-16-2024 Nucleated RBC/100 WBC (Bld) [Ratio] 0 % 0-5 [facility] Platelet countOrdered By: Lee Donald on 12-16-2024 Platelets (Bld) [#/Vol] 152 10*3/uL 150-450 [facility] Comment on above: Performed By: #### L 100.0100, L501.6710, L500.4050, L101.9900 #### [facility] [address] [place], [address] Potassium measurement (mass/ volume)Ordered By: Steven Donald on 12-16-2024 Potassium (Unsp spec) [Mass/Vol] 4.4 mmol/L 3.3-5.1 [facility] Protein Test strip Ql (U)Ord ered By: Steven Donald on 12-16-2024 Protein Ql (U) 500 mg/dl High Negative [facility] Serum creatinine measurement (mass/volume)Ordered By: Steven Donald on 12-16-2024 Creatinine [Mass/Vol] 0.99 mg/dL 0.70-1.20 [facility] Comment on above: Performed By: #### L 100.0100, L501.6710, L500.4050, L101.9900 #### [facility] [address] [place], [address] Serum glucose measurement (m ass/volume)Ordered By: Steven Donald on 12-16-2024 Glucose [Mass/Vol] 164 mg/dL High 70-99 [facility] Comment on above: Performed By: #### L 100.0100, L501.6710, L500.4050, L101.9900 #### [facility] [address] [place], [address] Serum or plasma calcium ibrahima urement (mass/volume)Ordered By: Steven Donald on 12-16-2024 Calcium [Mass/Vol] 9.1 mg/dL 7.6-11.0 [facility] Comment on above: Performed By: #### L 100.0100, L501.6710, L500.4050, L101.9900 #### [facility] [address] [place], [address] Serum or plasma urea nitroge n measurement (mass/volume)Ordered By: Steven Donald on 12-16-2024 Urea nitrogen [Mass/Vol] 15 mg/dL 4-19 [facility] Comment on above: Performed By: #### L 100.0100, L501.6710, L500.4050, L101.9900 #### [facility] [address] [place], [address] Sodium levelOrdered By: Steven Donald on 12-16-2024 Sodium [Moles/Vol] 137 mmol/L 133-145 [facility] Comment on above: Performed By: #### L 100.0100, L501.6710, L500.4050, L101.9900 #### [facility] [address] [place], [address] Squamous epithelial cells de tection in urine sediment by light microscopyOrdered By: Steven Donald on 12-16-2024 Epithelial cells.squamous LM Ql (Urine sed) 0-5 SEEN /hpf 0-5 [facility] Urinalysis, Completeon 12-16 BACTERIA 1+ /hpf Normal None Seen [facility] Comment on above: Order Comment: COLOR OF URINE MAY AFFECT DIPSTICK RESULTS.CLEAN CATCH Performed By: #### L 100.0100, L501.6710, L500.4050, L101.9900 #### [facility] [address] [place], [address] EPI,SQUAMOUS 0-5 SEEN Normal 0-5 [facility] Comment on above: Order Comment: COLOR OF URINE MAY AFFECT DIPSTICK RESULTS.CLEAN CATCH Performed By: #### L 100.0100, L501.6710, L500.4050, L101.9900 #### [facility] [address] [place], [address] RBC > 100 SEEN Normal 0-5 [facility] Comment on above: Order Comment: COLOR OF URINE MAY AFFECT DIPSTICK RESULTS.CLEAN CATCH Performed By: #### L 100.0100, L501.6710, L500.4050, L101.9900 #### [facility] [address] [place], [address] WBC >100 SEEN Normal 0-5 [facility] Comment on above: Order Comment: COLOR OF URINE MAY AFFECT DIPSTICK RESULTS.CLEAN CATCH Performed By: #### L 100.0100, L501.6710, L500.4050, L101.9900 #### [facility] [address] [place], [address] Mucus Ql (Urine sed) 0 SEEN Normal [facility] Comment on above: Order Comment: COLOR OF URINE MAY AFFECT DIPSTICK RESULTS.CLEAN CATCH Performed By: #### L 100.0100, L501.6710, L500.4050, L101.9900 #### [facility] [address] [place], [address] Urine clarityOrdered By: Ted Donald on 12-16-2024 Clarity (U) Turbid Clear [facility] Urine color determinationOrd ered By: Steven Donald on 12-16-2024 Color (U) Sheela Yellow [facility] Urine cultureOrdered By: Ted Donald on 12-16-2024 Bacteria identified Cx Nom (U) Pseudomonas aeruginosa Abnormal [facility] Urine glucose detectionOrder ed By: Steven Donald on 12-16-2024 Glucose Ql (U) Normal mg/dl Normal [facility] Urine leukocyte esterase det ection by dipstickOrdered By: Steven Donald on 12-16-2024 Leukocyte esterase Test strip Ql (U) 500 /ul High Negative [facility] Urine pHOrdered By: Steven kaur on 12-16-2024 pH (U) 7.0 [pH] 5.0 - 8.0 [facility] Urine sediment bacteria coun t by microscopy (number/high power field)Ordered By: Steven Donald on 12-16-2024 Bacteria LM.HPF (Urine sed) [#/Area] 1 /[HPF] None Seen [facility] Urine specific gravity measu rementOrdered By: Steven Donald on 12-16-2024 Specific gravity (U) [Rel density] 1.010 1.002-1.030 [facility] Urine urobilinogen measureme ntOrdered By: Steven Donald on 12-16-2024 Urobilinogen Ql (U) Normal mg/dl Normal [facility] White blood cell (WBC) count Ordered By: Steven Donald on 12-16-2024 WBC (Bld) [#/Vol] 11.3 10*3/uL High 4.4-11.0 [facility] Comment on above: Performed By: #### L 100.0100, L501.6710, L500.4050, L101.9900 #### [facility] [address] [place], [address] White blood cell countOrdere d By: Steven Donald on 12-16-2024 White blood cell count >100 SEEN /hpf 0-5 [facility] Discharge Instructionon 11-25 Discharge Instruction [facility] Medical Records Department [address] [place] [address] Instructions for Home/Discharge Instructions 12/14/24 0923 MR#: [id number] Acct: [id number] Name: ZION MARSH Rep #: [id number] : 1945 79 From: Dennis Guidry MD PCP: Dr. Abe Gilmore MD Status:REG [facility] Discharge Instructions Diet Discharge Diet: No restrictions DC O2, CPAP, BIPAP needs Home O2 Discharge instructions: No Dressing / Incision Discharge Activity: Return to Normal Activity and May Not Drive (while taking narcotic pain medications.) Dressing / Incision Call your doctor if you observe: Fever of 101 or Higher Follow Up Care Please Follow Up With: Dennis Guidry MD When: Call [phone] for an appointment Test Results: Test results from this visit will be discussed in further detail at your follow-up appointment, if applicable. Discharge Plan Admission Attending Provider: Dennis Guidry Primary Care Provider: Abe Gilmroe Instructions Print Language: [place] African Discharge Orders/Prescriptions Prescriptions: No Action atorvastatin 40 MG tablet 40 mg PO QHS Patient Comments: CHOLESTEROL LOWERING aspirin 81 MG tablet 81 mg PO QHS Patient Comments: [facility] tamsulosin 0.4 MG capsule 0.4 mg PO QHS Patient Comments: PROSTATE finasteride 5 MG tablet 5 mg PO QHS Patient Comments: PROSTATE Venlafaxine Xr [Effexor Xr] 75 MG capsule 150 mg PO QHS Patient Comments: DEPRESSION Cardura XL 4 MG tablet extended release 24hr 4 mg PO QHS Omeprazole [Prilosec] 40 MG capsule 40 mg PO DAILY multivitamin Tablet 1 tab PO DAILY losartan 50 mg tablet 50 mg PO DAILY Patient Comments: TAKE 1 TABLET BY MOUTH EVERY DAY gabapentin 100 mg capsule 200 mg PO QHS Patient Comments: TAKE 2 CAPSULES BY MOUTH EVERY DAY AT BEDTIME cholecalciferol (vitamin D3) [Vitamin D3] 25 mcg (1,000 unit) Capsule 25 mcg PO DAILY tramadol 50 mg tablet 50 mg PO 4X/DAY PRN PRN (Reason: pain) Referrals / Follow Up: Abe Gilmore MD [Primary Care Provider] - Disposition Disposition (needs filled in before D/C Order can be placed): Home, Self Care 12/14/24923 Dennis Guidry MD CC: Dr. Abe Gilmore MD Signed [facility] MR/POSTOP.[facility] [place] 12-14-2024 MR/POSTOP.[facility] Medical Records Department [address] [place] [address] Anesthesia Postop Eval I 12/14/24 1147 MR#: [id number] Acct: [id number] Name: ZION MARSH Rep #: [id number] : 1945 79 From: Aaron Kirby CRNA PCP: Dr. Abe Gilmore MD Status:[facility] Y Race: C Location: [place] [address] Anesthesia: Postop Eval I Current Vital Signs Temperature: 97.2 F Pulse Rate: 57 Blood Pressure: 146/63 Respiratory Rate: 16 Pulse Ox: 94 Assessment Airway patent: Yes Spontaneous unlabored respirations: Yes nausea: No Vomiting: No Anesthesia Complication: No Fluid Hydration Crystalloid volume administer (ml): 800 Total IV fluid infused: 800 Progress Note Anesthesia document: Postop Eval 1 completed: Yes 12/14/24 1147 Date Aaron Kirby LOCOMOTIVE SWITCH OPERATOR Cosigner Signature: Date CC: Signed Normal [facility] MR/[id number] 12-14-2024 MR/POSTOPAN2 [facility] Medical Records Department [address] [place] [address] Anesthesia Postop Eval II 12/14/24 1317 MR#: [id number] Acct: [id number] Name: ZION MARSH Rep #: [id number] : 1945 79 From: Chai Durand MD PCP: Dr. Abe Gilmore MD Status:DEP [facility] Y Race: C Location: [facility] Anesthesia Postop Eval I Sum Postop Eval Completion status Anesthesia document: Postop Eval 1 completed: Yes Anesthesia Postop Eval I Summary Anesthesia Postop Eval I Summary: Anesthesia Postop Eval I: Assessment Summary Airway patent Yes 12/14/24 11:47 LOCOMOTIVE SWITCH OPERATOR.TNES Spontaneous unlabored Yes 12/14/24 11:47 LOCOMOTIVE SWITCH OPERATOR.TNES respirations Mental status nausea No 12/14/24 11:47 LOCOMOTIVE SWITCH OPERATOR.TNES Vomiting No 12/14/24 11:47 LOCOMOTIVE SWITCH OPERATOR.TNES Anesthesia Postop Eval I: Fluid Summary Crystalloid volume administer 800 12/14/24 11:47 LOCOMOTIVE SWITCH OPERATOR.TNES (ml) Colloids volume administered ( ml) Blood Product volume administered (ml) Total IV fluid infused 800 12/14/24 11:47 LOCOMOTIVE SWITCH OPERATOR.TNES Anesthesia Postop Eval I: Summary Notes Anesthesia Complication No 12/14/24 11:47 LOCOMOTIVE SWITCH OPERATOR.TNES Anesthesia Complication Comment: Post-operative progress note Anesthesia: Postop Eval II Evaluation Mental status: Awake Pain Level: 1 nausea: No Vomiting: No 12/14/24 1317 Date Chai Durand MD Cosigner Signature: Date CC: Signed Normal [facility] Operative Reporton [id number] 5 Operative Report [facility] Medical Records Department [address] [place] [address] Operative Report 12/14/24 1058 MR#: [id number] Acct: [id number] Name: ZION MARSH Rep #: [id number] : 1945 79 From: Dennis Guidry MD PCP: Dr. Abe Gilmore MD Status:[facility] Location: [place] [address] Operative Report (Standard) Operative Information Date of Procedure: 12/14/24 Pre-Operative Diagnosis: Large left renal calculi Post-Operative Diagnosis: The same Surgery/Procedure Performed: Cystoscopy left ureteroscopy laser lithotripsy of stones and left stent placement instructional support specialist: No Type of Anesthesia: General RN Documented Start/Stop Times: Operation Date: 12/14/24 10:00 Case Time Into Pre-Op 12/14/24 08:50 Out of Pre-Op 12/14/24 09:46 Anesthesia Start 12/14/24 09:49 Into Room 12/14/24 09:49 Procedure Start 12/14/24 10:04 Procedure End 12/14/24 10:56 Procedure Start Time: 10:04 Procedure Stop Time: 10:56 Select all DRAINS/GRAFTS/IMPLAN TS that apply: Drains Drain details: Left stent 6 x 26 Estimated Blood Loss: None Specimen collected: No Description of surgery: This is a an 79-year-old male with been having gross hematuria and workup he was found to have multiple large stone in the left kidney bladder was otherwise normal does have an enlarged prostate but he claims to be urinating okay does a little bit of retention of urine when he urinates but minimal symptoms. Workup found to have multiple large stones in left kidney this is probably the most likely source of his hematuria is a small stone in the right kidney organ to watch today regular plan the laser the stone in the left kidney he will need a stent because a large stone burden Patient was taken back to the operating room after induction of anesthesia he was placed in dorsolithotomy position. The penis testicles were prepped and draped in usual fashion went into the bladder with a flexible ureteroscope was able to identify the right ureteral orifice use a Glidewire to cannulate the right ureteral orifice and over the wire went in with a flexible ureteroscope and then went up the ureter and it went up the renal pelvis and then from the renal pelvis I went up into the midpole calyx and encountered the first large stone energy settings were 80 Hz and 0.1 J lasered the stone completely into small dust pieces some of the fragments went to the upper pole I then went to the upper bone finish lasering these pieces and the dust I then performed ureteroscopy and then found another fragment in the lower pole of the left kidney this was lasered again into dust using the energy settings of 100 Hz and 0.1 J, 20 W. Once this was lasered completely went back to the renal pelvis just a bunch of dust fragments in the renal pelvis no major fragments were left I worked my way down the ureter no other fragments along the course of the ureter no injury trauma or damage to the ureter put a wire up into the kidney and then over the wire backloaded the cystoscope and then put a stent up in the left kidney also during the ureteroscopy pick case I did drain the bladder with a 12 [place] red rubber catheter to decompress the bladder. After the stent was in place the wire was coiled and removed and the stent coiled in the kidney bladder good position patient's bladder was drained he is taken back to the PACU in good condition we will see him in 2 weeks for cystoscopy stent removal Surgical Findings: Multiple large stones lasered completely into dust and left kidney Complications Complications: No Admit VTE Documentation VTE Present on Admission: No VTE Mechan Device Prophylaxis: SCD's VTE Pharm Prophylaxis ordered?: No 12/14/24 1101 Cosigner Signature (if applicable): CC: Dr. Dennis Guidry MD; Dr. 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 Faxed over to [phone] Confirmation received. Allergies As of Date: 12/08/2024 (No Known Allergies) Date Reviewed: 10/21/2024 Reviewed by: Danni Mckeon MA - Fully Assessed Prescriptions as of 12/08/2024 - omeprazole (PRILOSEC) 20 mg capsule TAKE 2 CAPSULES BY MOUTH DAILY BEFORE BREAKFAST. - atorvastatin (LIPITOR) 40 mg tablet Take 1 tablet by mouth daily at bedtime. - doxazosin (CARDURA) 4 mg tablet Take 1 tablet by mouth once daily. - losartan (COZAAR) 50 mg tablet Take 1 tablet by mouth once daily. - venlafaxine ER (EFFEXOR XR) 150 mg 24 hr capsule Take 1 capsule by mouth once daily. - tamsulosin (FLOMAX) 0.4 mg Take 0.4 mg by mouth daily at bedtime. - tramadol HCl (TRAMADOL ORAL) Take 50 mg by mouth four times daily. - gabapentin (NEURONTIN) 100 mg capsule Take 100 mg by mouth daily at bedtime. - finasteride (PROSCAR) 5 mg tablet Take 1 tablet by mouth once daily. - aspirin, enteric coated (ASPIRIN, ENTERIC COATED) 81 mg EC tablet Take 1 tablet by mouth once daily. Problem List As Of Date 12/08/2024 Noted Resolved BPH w/o urinary obs/LUTS [N40.0] 07/10/2006 01/02/2011 Essential hypertension [I10] 07/10/2006 Adjustment Disorder with Depressed Mood [F43.21]07/10/2006 Primary osteoarthritis involving multiple joint*07/29/2007 Mixed Hyperlipidemia [E78.2] 07/21/2008 Heartburn [R12] 10/10/2008 04/04/2016 Dyspepsia and other specified disorders of func*10/10/2008 04/04/2016 Acute gastritis without mention of hemorrhage [*10/10/2008 05/19/2023 Personal history of colonic polyps [Z86.0100] 10/10/2008 04/04/2016 Benign Neoplasm of Colon [D12.6] 10/10/2008 Routine physical examination [Z00.00] 11/14/2009 10/04/2015 Umbilical Hernia [K42.9] 11/14/2009 ED (erectile dysfunction) [N52.9] 11/14/2009 04/25/2021 Dysmetabolic syndrome [E88.810] 11/29/2010 Right shoulder pain [M25.511] 11/29/2010 09/15/2020 BPH with urinary obstruction [N40.1, N13.8] 01/02/2011 Elevated BP [HEB7051] 01/02/2011 10/23/2021 CAD (coronary artery disease) [I25.10] 01/02/2011 Renal calculi [N20.0] 10/23/2021 Kidney stones [N20.0] 01/25/2015 10/23/2021 BPH (benign prostatic hyperplasia) [N40.0] 01/25/2015 10/23/2021 Left flank pain [R10.9] 01/25/2015 04/04/2016 Elevated PSA [R97.20] 01/25/2015 04/25/2021 Recurrent kidney stones [N20.0] 01/25/2015 Other male erectile dysfunction [N52.8] 03/28/2015 Urinary retention due to benign prostatic hyper*03/28/2015 Erectile dysfunction [N52.9] 04/04/2015 04/25/2021 GERD (gastroesophageal reflux disease) [K21.9] JOSE (obstructive sleep apnea) [G47.33] 09/23/2018 Pneumonia of right lower lobe due to infectious* 9 01/17/2019 Obesity, Class I, BMI 30-34.9 [E66.811] 01/17/2019 Traumatic rectus hematoma [S30.1XXA] 06/23/2019 10/23/2021 Fall from ladder [W11.XXXA] 06/23/2019 06/23/2019 Closed head injury [S09.90XA] 06/23/2019 04/25/2021 Syncope [R55] 06/23/2019 04/25/2021 Enlarged thoracic aorta (HCC) [I77.89] 07/12/2019 Advance directive discussed with patient [Z71.8*10/23/2021 Encounter Status:Closed by WIL LINO on 12/08/[address] [facility] MR/PAT.LAURAjayme 12-08-2024 MR/PAT.LAURA [facility] Medical Records Department [address] [place] [address] PAT - Anesthesia 12/08/24 175 MR#: [id number] Acct: [id number] Name: ZION MARSH Rep #: [id number] : 1945 79 From: Nicanor Randolph MD PCP: Dr. Abe Gilmore MD Status:PRE SDC Y Race: C Location: [facility] Pre-Assessment Diagnosis/Proposed Procedure Planned Operative Procedure(s): CYSTO LEFT URETEROSCOPY LASER STONE LEFT STENT Anesthesia History Anesthesia History - farm hand: Anesthesia History - farm hand Hx Hospitalization No 12/08/24 14:19 Any Problems With Anesthesia No 12/08/24 14:19 Cholinesterase deficiency No 12/08/24 14:19 You/Your Family Experience No 12/08/24 14:19 fever (hyperthermia) with Relationship Recent Exposure to Contagious No 10/26/24 17:03 Disease Does patient have nerve No 12/08/24 14:19 stimulator Patient instructed to have device shut off --Does patient have Pacemaker or ICD? When Was Last Pacemaker Check QUESTION #4 FULL TEXT: You/Your Family Experience fever (hyperthermia) with Anesthesia Last Oral Intake Last Oral intake: Last Oral Intake NPO since Meds taken in AM with sips of water? 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 - farm hand: PONV - farm hand Female No 12/08/24 14:19 HX of Motion Sickness No 12/08/24 14:19 HX of N/V After Surgery No 12/08/24 14:19 Non-Smoker Yes 12/08/24 14:19 Duration of Surgery greater Yes 12/08/24 14:19 than 60 minutes Number of Risk Factors 2 12/08/24 14:19 PONV Score Moderate Risk 12/08/24 14:19 Height Weight Height Weight: Anesthesia: Height Weight Height 5 ft 10.08 in 11/24/24 07:20 Respiratory Assessment Respiratory Assessment - farm hand: Respiratory Tract Infection Hx - farm hand Hx Respiratory Tract Infection No 12/08/24 14:19 STOP Sleep Apnea STOP Sleep Apnea - farm hand: STOP Sleep Apnea - farm hand Hx Hypertension Yes: CONTROLLED WITH MEXD 12/08/24 14:19 Hx Sleep Apnea Yes 12/08/24 14:19 CPAP Yes 12/08/24 14:19 BIPAP No 12/08/24 14:19 Do you snore loudly (louder than talking or can be heard Do you often feel tired/ fatigued/ sleepy during daytime? Has anyone observed you stop breathing during sleep? STOP Results Positive 12/08/24 14:19 QUESTION #5 FULL TEXT : Do you snore loudly (louder than talking or can be heard through closed doors)? Tobacco Use History Tobacco Use History - farm hand: Tobacco Use History - farm hand Tobacco Use Smoking Status Never smoker 12/08/24 14:19 Hx Tobacco Use No 12/08/24 14:19 Years Smoking Packs Smoked per Day Smoking Cessation Date was within the last 15 years Hx Smoking Cessation Date Hx Smoking Cessation Counseling Hematologic Medial History Hematologic Hx - farm hand: Hematologic Medical Hx - plate painter Hx of Blood Transfusion No 12/08/24 14:19 Hx of Transfusion in last 3 No 12/08/24 14:19 Months Date of Last Transfusion (if within last 3 months) Ever experience any problems No 12/08/24 14:19 with transfusion(s)? Specify any problems Hx of Preganancy in last 3 N/A 12/08/24 14:19 Months Nurse Filling Out Transfusion DSCHRIBER 12/08/24 14:19 Questions: Date: 12/08/24 12/08/24 14:19 Time: 14:20 12/08/24 14:19 Patient unable to answer at this time (ie. confused, unrespo /Reproducti on History /Reproducti ve History - farm hand: /Reproducti ve Hx- farm hand Hx Now No 12/08/24 14:19 Gestational Age (in weeks): EDC: Hx Hx Para Hx Section SAB No 12/08/24 14:19 PFSH Medical History Loss of hearing Prostate disease Low iron Restless legs Hypertension History of MRSA infection Wears glasses Anxiety Arthritis High cholesterol Gastric reflux Non-smoker CPAP (continuous positive airway pressure) dependence History of pain when walking History of stress test History of echocardiogram Cardiology follow-up encounter BPH (benign prostatic hyperplasia) Dyslipidemia Nephrolithiasis Coronary artery disease Home Medications ???Medication ???Instructions ???Recorded ???Last Taken ???Type Venlafaxine Xr [Effexor Xr] 150 mg PO QHS DEPRESSION 04/04/15 04/14/15 History aspirin 81 mg tablet,delayed 81 mg PO QHS BLOOD THINNER 5 12/07/24 History release atorvastatin 40 mg tablet 40 mg PO QHS CHOLESTEROL 04/04/15 04/14/15 History finasteride 5 mg tablet 5 mg PO QHS URINATION 04/04/15 Histor (more content not included)... Normal [facility] Urine Cultureon 11-26-2024 URC Below infection level. Beta hemolytic organism [place] Count <1000 Normal [facility] Comment on above: Performed By: #### L 100.0100, L501.6710, L500.4050, L101.9900 #### [facility] [address] [place], [address] Abdomen/Pelvis without Conto n 11-24-2024 Abdomen/Pelvis without Cont [facility] Imaging Services [address] [place], [place] [address] Abdomen/Pelvis without Cont MR#: [id number] Acct: [id number] Name: ZION MARSH Rep #: [id number] : 1945 M 79 From: Otoniel Smith MD PCP: Dr. Abe Gilmore MD Status: [facility] ER Study: Abdomen/Pelvis without Cont Date of Exam: 08/20 Exam# [id number] Ordering Dr: Graham Thibodeaux MD PROCEDURE: ABDOMEN/PELVIS WITHOUT CONT (CTABDPEL), N/A REASON FOR EXAM: HEMATURIA TECHNIQUE: CT abdomen and pelvis was performed without IV contrast. Multiplanar reformats were generated. RADIATION DOSE SUMMARY: CTDlvol: 18.91 mGy DLP: 940.82 mGycm One or more dose reduction techniques were used (e.g., Automated exposure control, adjustment of the mA and/or kV according to patient size, use of iterative reconstruction technique). COMPARISON: 10/26/2024 FINDINGS: Note that evaluation of the abdominopelvic viscera, vasculature, and remaining soft tissues is limited in the absence of IV contrast. Portions of the pelvis are obscured by artifact related to bilateral hip arthroplasty. Lung bases: Atelectasis/scarring . Moderate hiatal hernia. Coronary atherosclerosis and/or stents. Aortic annular calcification.. Liver: Tiny LEFT lobe hypodensity too small to characterize, unchanged from 06/22/2019, likely cyst or hemangioma. Spleen: Unremarkable. Gallbladder: Unremarkable. Pancreas: Unremarkable. Adrenals: Unremarkable. Kidneys: Similar bilateral nonobstructing intrarenal calculi up to 15 x 10 mm in the LEFT upper pole. Small RIGHT renal cyst. Portions of the distal ureters difficult to trace and obscured by artifact. No hydronephrosis or definite ureteral calculus, where visible. 1 Bowel: Mild sigmoid diverticulosis.. Appendix not identified. No definite inflammation in the region. Lymph nodes: Unremarkable. Vasculature: Moderate atherosclerosis. Mild ectasia of the abdominal aorta to 2.6 x 2.5 cm.. Peritoneum: Unremarkable. Bladder: Partially obscured by artifact, grossly unremarkable where visible.. Reproductive Organs: Partially obscured by artifact. Suspect prostatomegaly.. Body Wall: Small fat containing RIGHT inguinal hernia. Nonspecific nodular soft tissue thickening at the umbilicus and involving the underlying mesentery has increased from 10/26/2024, 3.9 x 2.9 cm. Bones: Partially imaged bilateral hip arthroplasty. Multilevel spondylosis. Variable spinal canal stenoses probably up to severe, suboptimally delineated by CT. Prominent degenerative changes at the pubic symphysis.. CT/Abdomen/Pelvis without Cont IMPRESSION: 1. Similar nonobstructing intrarenal calculi. No hydronephrosis or definite ureteral calculus identified noting that the ureters are partially obscured distally by artifact related to bilateral hip arthroplasty. 2. Nonspecific nodular soft tissue thickening at the umbilicus and involving the underlying mesentery is increased from 10/26/2024. Given the relatively short interval change, recommend clinical follow-up and correlation with exam to exclude an focal soft tissue infection. 3. Abdominal aortic ectasia to 2.6 cm. Recommend follow-up in 5 years per 2013 ACR recommendations. 4. Appendix not identified. No definite inflammation in the region. 5. Additional description as above. Reading Location: [facility] CC: Dr. Graham Thibodeaux MD; Dr. Abe Gilmore MD Steel Sampler: Signed Normal [facility] Absolute lymphocyte countOrd ered By: Graham Thibodeaux on 11-24-2024 Lymphocytes Auto (Unsp spec) [#/Vol] 0.92 10*3/uL 0.83-4.51 [facility] Absolute neutrophil countOrd ered By: Graham Thibodeaux on 11-24-2024 Neutrophils (Bld) [#/Vol] 3.1 10*3/uL 2.0-7.7 [facility] Anion gap in Serum or Plasma Ordered By: Graham Thibodeaux on 11-24-2024 Anion gap [Moles/Vol] 11 mmol/L 5-15 [facility] Automated lymphocyte count a s percentage of total leukocytesOrdered By: Graham Thibodeaux on 11-24-2024 Lymphocytes/100 WBC Auto (Unsp spec) 20.5 % 19-41 [facility] BUN/creatinine ratioOrdered By: Graham Thibodeaux on 11-24-2024 Urea nitrogen/Creatinine [Mass ratio] 16.8 mg/mg 10- [facility] Basic Metabolic Profile (BMP )on 11-24-2024 BUN/CRE 16.8 RATIO Normal - [facility] Comment on above: Performed By: #### L 100.0100, L501.6710, L500.4050, L101.9900 #### [facility] [address] [place], [address] Calcium [Mass/Vol] 9.0 mg/dL Normal 7.6-11.0 [facility] Comment on above: Performed By: #### L 100.0100, L501.6710, L500.4050, L101.9900 #### [facility] [address] [place], [address] Chloride [Moles/Vol] 103 mmol/L Normal 98-108 [facility] Comment on above: Performed By: #### L 100.0100, L501.6710, L500.4050, L101.9900 #### [facility] [address] [place], [address] CO2 [Moles/Vol] 22.4 mmol/L Normal 21.0-32.0 [facility] Comment on above: Performed By: #### L 100.0100, L501.6710, L500.4050, L101.9900 #### [facility] [address] [place], [address] Creatinine [Mass/Vol] 1.18 mg/dL Normal 0.70-1.20 [facility] Comment on above: Performed By: #### L 100.0100, L501.6710, L500.4050, L101.9900 #### [facility] [address] [place], [address] ECRCL 61.18 ml/min Normal 50-250 [facility] Comment on above: Performed By: #### L 100.0100, L501.6710, L500.4050, L101.9900 #### [facility] [address] [place], [address] GAP 11 Normal 5-15 [facility] Comment on above: Performed By: #### L 100.0100, L501.6710, L500.4050, L101.9900 #### [facility] [address] [place], [address] GFR/1.73 sq M.predicted among non-blacks MDRD (S/P/Bld) [Vol rate/Area] 62 mL/min/{1.73_m2} Normal >60 [facility] Comment on above: Result Comment: mL/m in/1.73m2 CKD-EPI Creatinine Equation (2020) Performed By: #### L 100.0100, L501.6710, L500.4050, L101.9900 #### [facility] [address] [place], [address] Glucose [Mass/Vol] 140 mg/dL High 70-99 [facility] Comment on above: Performed By: #### L 100.0100, L501.6710, L500.4050, L101.9900 #### [facility] [address] [place], [address] Potassium [Moles/Vol] 4.2 mmol/L Normal 3.3-5.1 [facility] Comment on above: Performed By: #### L 100.0100, L501.6710, L500.4050, L101.9900 #### [facility] [address] [place], [address] Sodium [Moles/Vol] 135 mmol/L Normal 133-145 [facility] Comment on above: Performed By: #### L 100.0100, L501.6710, L500.4050, L101.9900 #### [facility] [address] [place], [address] Urea nitrogen [Mass/Vol] 20 mg/dL High 4-19 [facility] Comment on above: Performed By: #### L 100.0100, L501.6710, L500.4050, L101.9900 #### [facility] [address] [place], [address] Basophil percentageOrdered B y: Graham Thibodeaux on 11-24-2024 Basophils/100 WBC (Bld) 0.9 % 0-1 [facility] Bilirubin Test strip Ql (U)O rdered By: Graham Thibodeaux on 11-24-2024 Bilirubin Ql (U) 6 mg/dL High Negative [facility] Comment on above: COLOR OF URINE MAY A FFECT DIPSTICK RESULTS. CBC W/Diff, Automatedon Absolute Lymph 0.92 X10 3/uL Normal 0.83-4.51 [facility] Comment on above: Performed By: #### L 100.0100, L501.6710, L500.4050, L101.9900 #### [facility] [address] [place], [address] Absolute Neut 3.1 X10 3/uL Normal 2.0-7.7 [facility] Comment on above: Performed By: #### L 100.0100, L501.6710, L500.4050, L101.9900 #### [facility] [address] [place], [address] Basophils/100 WBC (Bld) 0.9 % Normal 0-1 [facility] Comment on above: Performed By: #### L 100.0100, L501.6710, L500.4050, L101.9900 #### [facility] [address] [place], [address] Eosinophils/100 WBC (Bld) 4.5 % Normal 0-5 [facility] Comment on above: Performed By: #### L 100.0100, L501.6710, L500.4050, L101.9900 #### [facility] [address] [place], [address] Erythrocyte distribution width (RBC) [Ratio] 12.4 % Normal 11.6-14.6 [facility] Comment on above: Performed By: #### L 100.0100, L501.6710, L500.4050, L101.9900 #### [facility] [address] [place], [address] Hematocrit (Bld) [Volume fraction] 37.5 % Low 40-54 [facility] Comment on above: Performed By: #### L 100.0100, L501.6710, L500.4050, L101.9900 #### [facility] [address] [place], [address] Hemoglobin (Bld) [Mass/Vol] 12.7 g/dL Low 13.0-16.5 [facility] Comment on above: Performed By: #### L 100.0100, L501.6710, L500.4050, L101.9900 #### [facility] [address] [place], [address] IG% 0.200 Normal 0.0-0.9 [facility] Comment on above: Result Comment: IG% - Immature Granulocytes (promyelocytes, myelocytes and metamyelocytes) > 1% indicates that a LEFT SHIFT is Present. Performed By: #### L 100.0100, L501.6710, L500.4050, L101.9900 #### [facility] [address] [place], [address] Lymphocytes/100 WBC (Bld) 20.5 % Normal 19-41 [facility] Comment on above: Performed By: #### L 100.0100, L501.6710, L500.4050, L101.9900 #### [facility] [address] [place], [address] MCH (RBC) [Entitic mass] 30.5 pg Normal 27.0-32.0 [facility] Comment on above: Performed By: #### L 100.0100, L501.6710, L500.4050, L101.9900 #### [facility] [address] [place], [address] MCHC (RBC) [Mass/Vol] 33.9 g/dL Normal 32-36 [facility] Comment on above: Performed By: #### L 100.0100, L501.6710, L500.4050, L101.9900 #### [facility] [address] [place], [address] MCV (RBC) [Entitic vol] 90.1 fL Normal 80-94 [facility] Comment on above: Performed By: #### L 100.0100, L501.6710, L500.4050, L101.9900 #### [facility] [address] [place], [address] Monocytes/100 WBC (Bld) 5.6 % Normal 0-10 [facility] Comment on above: Performed By: #### L 100.0100, L501.6710, L500.4050, L101.9900 #### [facility] [address] [place], [address] Neutrophils/100 WBC (Bld) 68.3 % Normal 47-70 [facility] Comment on above: Performed By: #### L 100.0100, L501.6710, L500.4050, L101.9900 #### [facility] [address] [place], [address] Nucleated RBC (Bld) [#/Vol] 0 10*3/uL Normal 0-5 [facility] Comment on above: Performed By: #### L 100.0100, L501.6710, L500.4050, L101.9900 #### [facility] [address] [place], [address] Platelet mean volume (Bld) [Entitic vol] 9.8 fL Normal 6.2-12.0 [facility] Comment on above: Performed By: #### L 100.0100, L501.6710, L500.4050, L101.9900 #### [facility] [address] [place], [address] Platelets (Bld) [#/Vol] 141 10*3/uL Low 150-450 [facility] Comment on above: Performed By: #### L 100.0100, L501.6710, L500.4050, L101.9900 #### [facility] [address] [place], [address] RBC (Bld) [#/Vol] 4.16 10*6/uL Low 4.6-6.2 [facility] Comment on above: Performed By: #### L 100.0100, L501.6710, L500.4050, L101.9900 #### [facility] [address] [place], [address] RDW SD 40.8 fl Normal 35.1-43.9 [facility] Comment on above: Performed By: #### L 100.0100, L501.6710, L500.4050, L101.9900 #### [facility] [address] [place], [address] WBC (Bld) [#/Vol] 4.5 10*3/uL Normal 4.4-11.0 [facility] Comment on above: Performed By: #### L 100.0100, L501.6710, L500.4050, L101.9900 #### [facility] [address] [place], [address] Carbon dioxide, total [Moles /volume] in Central venous bloodOrdered By: Grahma Thibodeaux on 11-24-2024 CO2 [Moles/Vol] 22.4 mmol/L 21.0-32.0 [facility] Chloride assayOrdered By: Maximo Thibodeaux on 11-24-2024 Chloride [Moles/Vol] 103 mmol/L 98-108 [facility] Emergency Department Summary on 11-24-2024 Emergency Department Summary [facility] Medical Records Department [address] [place] [address] Emergency Department Summary 11/24/24 MR#: [id number] Acct: [id number] Name: ZION MARSH Rep #: [id number] : 1945 79 From: Graham Thibodeaux MD PCP: Dr. Abe Gilmore MD Status:REG ER Location: ED HPI History of Present Illness Chief Complaint: Complaint Narrative Narrative: 79-year-old male presents with his because of painless hematuria that began yesterday evening. He states he noticed that yesterday he might of had dark red blood in his urine. He awoke again this morning, was able to urinate, and noticed continued dark red blood. While he states that he sees Dr. Guidry from urology and has always had microscopic hematuria over the last 2 years, this is the first time that he is ever had dark red blood in his urine. He denies any difficulty urinating, no fevers or chills, no nausea or vomiting, no flank pain. No exacerbating or alleviating factors. Denies other bleeding diathesis. [facility] Medical History Contact dermatitis due to poison francois Hypertension History of MRSA infection Wears glasses Anxiety Uses wheelchair Arthritis Kidney stones High cholesterol Gastric reflux Non-smoker CPAP (continuous positive airway pressure) dependence Sleep apnea History of pain when walking History of stress test History of echocardiogram Cardiology follow-up encounter BPH (benign prostatic hyperplasia) Dyslipidemia Nephrolithiasis Coronary artery disease Home Medications ???Medication ???Instructions ???Recorded ???Last Taken ???Type Venlafaxine Xr [Effexor Xr] 150 mg PO QHS DEPRESSION 04/04/15 04/14/15 History aspirin 81 mg tablet,delayed 81 mg PO QHS BLOOD THINNER 5 04/14/15 History release atorvastatin 40 mg tablet 40 mg PO QHS CHOLESTEROL 04/04/15 04/14/15 History finasteride 5 mg tablet 5 mg PO QHS URINATION 04/04/15 History tamsulosin 0.4 mg capsule 0.4 mg PO QHS URINATION 04/04/15 0 04/14/15 History Omeprazole [Prilosec] 40 mg PO DAILY GERD 01/23/1712/20 History doxazosin 4 mg tablet,extended 4 mg PO DAILY HEART 01/23/1712/20 History release 24 hr (Cardura XL) cholecalciferol (vitamin D3) 25 25 mcg PO DAILY SUPPLEMENT 2 Unknown History mcg (1,000 unit) capsule (Vitamin D3) gabapentin 100 mg capsule 200 mg PO QHS PAIN 12/17/21 Unknow n History losartan 50 mg tablet 50 mg PO DAILY BP 12/17/21 2 History multivitamin 1 tab PO DAILY SUPPLEMENT 12/17/21 Unknown History Allergy/AdvReac Type Severity Reaction Status Date / Time No Known Allergies Allergy Verified 11/09/24 14:36 Surgical History S/P umbilical hernia repair, follow-up exam Hx of bilateral cataract extraction Hx of hernia repair Hx of appendectomy History of carpal tunnel release of both wrists Hx of repair of right rotator cuff Hx of repair of left rotator cuff Hx of bilateral hip replacements Social History household members: spouse Smoking Status: Never smoker ROS ROS ED ROS Narrative Review of systems positive for dark red blood in urine, no flank pain, no fevers or chills, no nausea or vomiting. No pain with urination. No other bleeding. No hematemesis. EXAM Physical Exam Narrative Exam Narrative: Afebrile. Vital signs noted. Nontoxic-appearing. Cardiovascular examination reveals a regular rate and rhythm. Lungs are clear to auscultation bilaterally. Abdomen is soft, nontender, without guarding or rebound. Positive bowel sounds. Neurological examination nonfocal and nonlateralizing. Skin examination without extreme pallor. Const Vital Signs: 11/24/24 07:20 11/24/24 08:03 Temperature 98.3 F 98.3 F Temperature Source Oral Temporal Pulse Rate 76 76 Respiratory Rate 18 18 Blood Pressure 176/85 H 175/85 H Blood Pressure Mean 115 115 Pulse Ox 97 97 Oxygen Delivery Method Room Air MDM MDM MDM Narrative Medical decision making narrative: Differential diagnosis includes but not limited to bladder mass versus tumor versus hemorrhagic cystitis. Patient is able to urinate so I have low suspicion for urinary retention. CBC will be obtained to check to make sure that he is not having anemia requiring transfusion but his physical exam goes against this. I will check a BMP to check his kidney function. Urinalysis will be obtained to rule out infection. I do feel that he requires CT imaging at this time to look for bladder mass or tumor. I reviewed his laboratory work and he has normal white count of 4.5 with hemoglobin 12.7 and stable when compared to previous labs. BUN elevated at 20 with cre (more content not included)... Normal [facility] Eosinophil percentageOrdered By: Graham Thibodeaux on 11-24-2024 Eosinophils/100 WBC (Bld) 4.5 % 0-5 [facility] Erythrocyte distribution wid th ratioOrdered By: Graham Thibodeaux on 11-24-2024 Erythrocyte distribution width (RBC) [Ratio] 12.4 % 11.6-14.6 [facility] Erythrocyte distribution wid th standard deviationOrdered By: Graham Thibodeaux on 11-24-2024 Erythrocyte distribution width (RBC) [Ratio] 40.8 fl 35.1-43.9 [facility] Glomerular filtration rate ( GFR) estimation/1.73 sq m using serum, plasma, or whole bOrdered By: Graham Thibodeaux on 11-24-2024 GFR/1.73 sq M.predicted among non-blacks MDRD (S/P/Bld) [Vol rate/Area] 62 mL/min/{1.73_m2} >60 [facility] Comment on above: mL/min/1.73m2 CKD-EP I Creatinine Equation (2020) Hematocrit Auto (Bld) [Volum e fraction]Ordered By: Graham Thibodeaux on 11-24-2024 Hematocrit (Bld) [Volume fraction] 37.5 % Low 40-54 [facility] Hemoglobin measurementOrdere d By: Graham Thibodeaux on 11-24-2024 Hemoglobin (Bld) [Mass/Vol] 12.7 g/dL Low 13.0-16.5 [facility] Immature granulocytes/100 WB C Auto (Bld)Ordered By: Graham Thibodeaux on 11-24-2024 Immature granulocytes/100 WBC (Bld) 0.200 % 0.0-0.9 [facility] Comment on above: IG% - Immature Granu locytes (promyelocytes, myelocytes and metamyelocytes) > 1% indicates that a LEFT SHIFT is Present. Ketones Test strip Ql (U)Ord ered By: Garham Thibodeaux on 11-24-2024 Ketones Ql (U) 50 mg/dl High Negative [facility] MCV (mean corpuscular volume ) determinationOrdered By: Graham Thibodeaux on 11-24-2024 MCV (RBC) [Entitic vol] 90.1 fL 80-94 [facility] Mean corpuscular hemoglobin (MCH) determinationOrdered By: Graham Thibodeaux on 11-24-2024 MCH (RBC) [Entitic mass] 30.5 pg 27.0-32.0 [facility] Mean corpuscular hemoglobin concentration (MCHC) determinationOrdered By: Graham Thibodeaux on 11-24-2024 MCHC (RBC) [Mass/Vol] 33.9 g/dL 32-36 [facility] Mean platelet volume determi nationOrdered By: Graham Thibodeaux on 11-24-2024 Platelet mean volume (Bld) [Entitic vol] 9.8 fL 6.2-12.0 [facility] Microscopic analysis of urin e for red blood cells (RBC)Ordered By: Graham Thibodeaux on 11-24-2024 Microscopic analysis of urine for red blood cells (RBC) > 100 SEEN /hpf 0-5 [facility] Monocyte percentageOrdered B y: Graham Thibodeaux on 11-24-2024 Monocytes/100 WBC (Bld) 5.6 % 0-10 [facility] Mucus LM Ql (Urine sed)Order ed By: Graham Thibodeaux on 11-24-2024 Mucus Ql (Urine sed) 0 SEEN /hpf [facility] Neutrophil percentageOrdered By: Graham Thibodeaux on 11-24-2024 Neutrophils/100 WBC (Bld) 68.3 % 47-70 [facility] Nitrite Test strip Ql (U)Ord ered By: Graham Thibodeaux on 11-24-2024 Nitrite Ql (U) Positive High Negative [facility] Nucleated red blood cell per centageOrdered By: Graham Thibodeaux on 11-24-2024 Nucleated RBC/100 WBC (Bld) [Ratio] 0 % 0-5 [facility] Platelet countOrdered By: Maximo Thibodeaux on 11-24-2024 Platelets (Bld) [#/Vol] 141 10*3/uL Low 150-450 [facility] Potassium measurement (mass/ volume)Ordered By: Graham Thibodeaux on 11-24-2024 Potassium (Unsp spec) [Mass/Vol] 4.2 mmol/L 3.3-5.1 [facility] Protein Test strip Ql (U)Ord ered By: Graham Thibodeaux on 11-24-2024 Protein Ql (U) 500 mg/dl High Negative [facility] RBC Auto (Bld) [#/Vol]Ordere d By: Graham Thibodeaux on 11-24-2024 RBC (Bld) [#/Vol] 4.16 10*6/uL Low 4.6-6.2 [facility] Serum creatinine measurement (mass/volume)Ordered By: Graham Thibodeaux on 11-24-2024 Creatinine [Mass/Vol] 1.18 mg/dL 0.70-1.20 [facility] Serum glucose measurement (m ass/volume)Ordered By: Graham Thibodeaux on 11-24-2024 Glucose [Mass/Vol] 140 mg/dL High 70-99 [facility] Serum or plasma calcium ibrahima urement (mass/volume)Ordered By: Graham Thibodeaux on 11-24-2024 Calcium [Mass/Vol] 9.0 mg/dL 7.6-11.0 [facility] Serum or plasma urea nitroge n measurement (mass/volume)Ordered By: Graham Thibodeaux on 11-24-2024 Urea nitrogen [Mass/Vol] 20 mg/dL High 4-19 [facility] Sodium levelOrdered By: Graham Thibodeaux on 11-24-2024 Sodium [Moles/Vol] 135 mmol/L 133-145 [facility] Squamous epithelial cells de tection in urine sediment by light microscopyOrdered By: Graham Thibodeaux on 11-24-2024 Epithelial cells.squamous LM Ql (Urine sed) 0 SEEN /hpf 0-5 [facility] Urinalysis, Completeon 11-24 RBC > 100 SEEN Normal 0-5 [facility] Comment on above: Order Comment: COLOR OF URINE MAY AFFECT DIPSTICK RESULTS.CLEAN CATCH Performed By: #### L 100.0100, L501.6710, L500.4050, L101.9900 #### [facility] [address] [place], [address] WBC 0-5 SEEN Normal 0-5 [facility] Comment on above: Order Comment: COLOR OF URINE MAY AFFECT DIPSTICK RESULTS.CLEAN CATCH Performed By: #### L 100.0100, L501.6710, L500.4050, L101.9900 #### [facility] [address] [place], [address] BACTERIA 0 SEEN Normal None Seen [facility] Comment on above: Order Comment: COLOR OF URINE MAY AFFECT DIPSTICK RESULTS.CLEAN CATCH Performed By: #### L 100.0100, L501.6710, L500.4050, L101.9900 #### [facility] [address] [place], [address] EPI,SQUAMOUS 0 SEEN Normal 0-5 [facility] Comment on above: Order Comment: COLOR OF URINE MAY AFFECT DIPSTICK RESULTS.CLEAN CATCH Performed By: #### L 100.0100, L501.6710, L500.4050, L101.9900 #### [facility] [address] [place], [address] Mucus Ql (Urine sed) 0 SEEN Normal [facility] Comment on above: Order Comment: COLOR OF URINE MAY AFFECT DIPSTICK RESULTS.CLEAN CATCH Performed By: #### L 100.0100, L501.6710, L500.4050, L101.9900 #### [facility] [address] [place], [address] Urine clarityOrdered By: Kiera Thibodeaux on 11-24-2024 Clarity (U) Sl. Cloudy Clear [facility] Urine color determinationOrd ered By: Graham Thibodeaux on 11-24-2024 Color (U) Sheela Yellow [facility] Urine cultureOrdered By: Kiera Thibodeaux on 11-24-2024 Bacteria identified Cx Nom (U) Beta hemolytic organism Abnormal [facility] Urine glucose detectionOrder ed By: Graham Thibodeaux on 11-24-2024 Glucose Ql (U) 1000 mg/dl High Normal [facility] Urine leukocyte esterase det ection by dipstickOrdered By: Graham Thibodeaux on 11-24-2024 Leukocyte esterase Test strip Ql (U) 500 /ul High Negative [facility] Urine pHOrdered By: Graham mccurdy on 11-24-2024 pH (U) 7.0 [pH] 5.0 - 8.0 [facility] Urine sediment bacteria coun t by microscopy (number/high power field)Ordered By: Graham Thibodeaux on 11-24-2024 Bacteria LM.HPF (Urine sed) [#/Area] 0 /[HPF] None Seen [facility] Urine specific gravity measu rementOrdered By: Graham Thibodeaux on 11-24-2024 Specific gravity (U) [Rel density] 1.010 1.002-1.030 [facility] Urine urobilinogen measureme ntOrdered By: Graham Thibodeaux on 11-24-2024 Urobilinogen Ql (U) 12 mg/dl High Normal [facility] White blood cell (WBC) count Ordered By: Graham Thibodeaux on 11-24-2024 WBC (Bld) [#/Vol] 4.5 10*3/uL 4.4-11.0 [facility] White blood cell countOrdere d By: Graham Thibodeaux on 11-24-2024 White blood cell count 0-5 SEEN /hpf 0-5 [facility] Surgery Visit Reporton 11-09 Surgery Visit Report [facility] [address] [place] [address]. [address] [place] [address] OFFICE VISIT Date of Service: 11/09/24 MR#: [id number] Acct: [id number] Name: ZION MARSH Rep #: [id number] : 1945 Provider: REYES rizvi Age/Sex: 79/M Location: [facility] Status: Signed Intake Vital Signs 10/26/24 20:27 Height 5 ft 10 in Intake Visit Reasons: UMBILICAL HERNIA DOS 4/2 Chief Complaint: umbilical hernia dos 4/2 Is patient in pain?: No Allergies No Known Allergies Allergy (Verified 11/09/24 14:36) Medications ???Medication ???Instructions ???Recorded ???Confirmed ???Type Venlafaxine Xr [Effexor Xr] 150 mg PO QHS DEPRESSION 04/04/15 11/09/24 History aspirin 81 mg tablet,delayed 81 mg PO QHS BLOOD THINNER 5 11/09/24 History release Held on 10/26/24. Instructions: Resume on 10/28/24. atorvastatin 40 mg tablet 40 mg PO QHS CHOLESTEROL 04/04/15 11/09/24 History finasteride 5 mg tablet 5 mg PO QHS URINATION 04/04/15 History tamsulosin 0.4 mg capsule 0.4 mg PO QHS URINATION 04/04/15 0 11/09/24 History Omeprazole [Prilosec] 40 mg PO DAILY GERD 01/23/1711/09 History doxazosin 4 mg tablet,extended 4 mg PO DAILY HEART 01/23/1711/09 History release 24 hr (Cardura XL) cholecalciferol (vitamin D3) 25 25 mcg PO DAILY SUPPLEMENT 2 11/09/24 History mcg (1,000 unit) capsule (Vitamin D3) gabapentin 100 mg capsule 200 mg PO QHS PAIN 12/17/21 History losartan 50 mg tablet 50 mg PO DAILY BP 12/17/21 5 History multivitamin 1 tab PO DAILY SUPPLEMENT 12/17/21 11/09/24 History Have you fallen in the past year?: No Subjective Details: Patient is an 79 y/o M I am following s/p simple open incarcerated umbilical hernia repair by Dr. Limon on 10/26/24. Patient tolerated the procedure well. He denies any nausea, vomiting, fever. He notes his appetite has returned to normal. He notes his bowel habits have returned to normal. He denies any incisional pain/discomfort. Pathology returned as contents of the hernia sac with minimal fat necrosis. Objective Details: Abdomen- soft, small amount of swelling superior to the incision. Incision c/d/i. No erythema or infection noted. Coding Level of Care Code Global Post Op Diagnoses S/P umbilical hernia repair, follow-up exam Z09 [facility] Medical History (Updated 11/03/24 @ 00:01 by Cyril Sauceda) Contact dermatitis due to poison francois Hypertension History of MRSA infection Wears glasses Anxiety Uses wheelchair Arthritis Kidney stones High cholesterol Gastric reflux Non-smoker CPAP (continuous positive airway pressure) dependence Sleep apnea History of pain when walking History of stress test History of echocardiogram Cardiology follow-up encounter BPH (benign prostatic hyperplasia) Dyslipidemia Nephrolithiasis Coronary artery disease Surgical History (Updated 11/09/24 @ 14:37 by Aviva Rivera) S/P umbilical hernia repair, follow-up exam Hx of bilateral cataract extraction Hx of hernia repair Hx of appendectomy History of carpal tunnel release of both wrists Hx of repair of right rotator cuff Hx of repair of left rotator cuff Hx of bilateral hip replacements Social History household members: spouse Smoking Status: Never smoker Assessment and Plan (No Qualifiers) Assessment and Plan (1) S/P umbilical hernia repair, follow-up exam: Status: Acute Plan: Recommend no lifting greater than 20 pounds for 3 additional weeks Discussed signs of infection and when to contact our office Follow-up as needed 11/09/24 1452 Date Lexis Perez Signature: Date (if applicable) CC: Dr. Abe Gilmore MD [facility] 12 Lead EKGon 10-26-2024 12 Lead [address] [facility] Cardiovascular Services [address] [place] [address] 12 Lead EKG 10/26/24 1623 MR#: [id number] Acct: [id number] Name: ZION MARSH Rep #: [id number] : 1945 79 From: Bora Myers MD Attending Dr: Dr. Vickie Limon MD Status: D IS ROBERT Ordering Dr: Stevie Resendiz DO Date: 10/26/24 Location: [facility] Sex: M C Admitted: 10/26/24 Test Reason : P Blood Pressure : */* mmHG Vent. Rate : 53 BPM Atrial Rate : 53 BPM P-R Int : 220 ms QRS Dur : 98 ms QT Int : 448 ms P-R-T Axes : 48 16 51 degrees QTcB Int : 420 ms Sinus bradycardia with 1st degree A-V block Incomplete right bundle branch block Borderline ECG Confirmed by CROW GARCÍA, BORA ([id number]), slot editor MICHAEL CABEZAS ([id number]) on 10/28/2024 9:22:39 AM Referred By: MARTÍN Confirmed By: BORA MYERS MD 10/28/24 0922 Date Bora Myers MD CC: Dr. Vickie Limon MD; Dr. Stevie Resendiz DO; Dr. Abe Gilmore MD Signed Normal [facility] Abdomen/Pelvis W IV Cont ONL Yon 10-26-2024 Abdomen/Pelvis W IV Cont ONLY [facility] Imaging Services [address], [place] [address] Abdomen/Pelvis W IV Cont ONLY MR#: [id number] Acct: [id number] Name: ZION MARSH Rep #: [id number] : 1945 M 79 From: Junior posadas MD PCP: Dr. Abe Gilmore MD Status: REG ER Study: Abdomen/Pelvis W IV Cont ONLY Date of Exam: Exam# [id number] Ordering Dr: Bill Gary MD PROCEDURE: ABDOMEN/PELVIS W IV CONT ONLY 10/26/2024 REASON FOR EXAM: 1 REDUCIBLE UMBILICAL HERNIA AND 1 NONREDUCIBLE UM Prior umbilical hernia repair. TECHNIQUE: Abdomen and pelvis CT with intravenous contrast. Coronal and Sagittal reconstruction series were provided. PATIENT PREPARATION: Per protocol ORAL CONTRAST TYPE: None. CONTRAST: Isovue-300 VOLUME: 74mL One or more dose reduction techniques were used (e.g., Automated exposure control, adjustment of the mA and/or kV according to patient size, use of iterative reconstruction technique. RADIATION DOSE SUMMARY: CTDlvol: 14 mGy DLP: 984.6 mGycm COMPARISON: Comparison is made with prior study dated June 22, 2019. FINDINGS: Lung bases: Mild dependent atelectasis. Coronary artery calcification. Liver: Unremarkable tiny cyst in the anterior aspect of the left lobe of the liver. Gallbladder: Unremarkable Spleen: Normal size. Pancreas: Normal size without evidence of mass surrounding inflammation or ductal dilation. Adrenals: Kidneys: 1.1 cm nonobstructive calculus in the upper pole calyx of the left kidney. Nonobstructive punctate calculi in the mid lower pole of the left kidney as well as the right kidney. Mild degree of left hydronephrosis. Fullness of the right renal pelvis. Bladder: Distended urinary bladder. Bowel: Moderate-sized hiatal hernia. Small umbilical hernia containing fat. There is increased density within the umbilical hernia as well as the peritoneal fat just deep to the abdominal wall deep to the umbilicus. This may represent trapping of the peritoneal fat. This may be the cause of patient's pain. Appendix: The appendix is not identified. There is no inflammatory process identified in the right lower quadrant to suggest appendicitis. Lymph nodes: Unremarkable. Vasculature: Mild diffuse atherosclerotic calcifications are noted. Peritoneum / Retroperitoneum: Bones: Status post bilateral total hip replacement causing beam hardening artifact and limited visualization of the pelvic structures. CT/Abdomen/Pelvis W IV Cont ONLY IMPRESSION: Bilateral nonobstructive intrarenal calculi more prominent on the left side. Umbilical hernia as described with increased density within the hernia as well as the anterior peritoneal fat just deep to the umbilicus suggestive of possible incarceration. Clinical correlation recommended. Reading Location: [place] [address] CC: Dr. Bill Gary MD; Dr. Abe Gilmore MD Steel Sampler: Signed Normal [facility] Absolute lymphocyte countOrd ered By: ED PROVIDER on 10-26-2024 Lymphocytes Auto (Unsp spec) [#/Vol] 1.07 10*3/uL 0.83-4.51 [facility] Absolute neutrophil countOrd ered By: ED PROVIDER on 10-26-2024 Neutrophils (Bld) [#/Vol] 3.2 10*3/uL 2.0-7.7 [facility] Anion gap in Serum or Plasma Ordered By: ED PROVIDER on 10-26-2024 Anion gap [Moles/Vol] 9 mmol/L 5-15 [facility] Automated blood erythrocyte countOrdered By: ED PROVIDER on 10-26-2024 RBC (Bld) [#/Vol] 4.32 10*6/uL Low 4.6-6.2 [facility] Comment on above: Performed By: #### L 100.0100, L501.6710, L500.4050, L101.9900 #### [facility] [address] [place], [address] Automated blood hematocrit ( percentage)Ordered By: ED PROVIDER on 10-26-2024 Hematocrit (Bld) [Volume fraction] 39.2 % Low 40-54 [facility] Comment on above: Performed By: #### L 100.0100, L501.6710, L500.4050, L101.9900 #### [facility] [address] [place], [address] Automated lymphocyte count a s percentage of total leukocytesOrdered By: ED PROVIDER on 10-26-2024 Lymphocytes/100 WBC (Bld) 21.6 % Normal 19- [facility] Comment on above: Performed By: #### L 100.0100, L501.6710, L500.4050, L101.9900 #### [facility] [address] [place], [address] Lymphocytes/100 WBC Auto (Unsp spec) 21.6 % - [facility] BUN/creatinine ratioOrdered By: ED PROVIDER on 10-26-2024 Urea nitrogen/Creatinine [Mass ratio] 17.1 mg/mg 10-20 [facility] Basophil percentageOrdered B y: ED PROVIDER on 10-26-2024 Basophils/100 WBC (Bld) 1.0 % 0-1 [facility] Comment on above: Performed By: #### L 100.0100, L501.6710, L500.4050, L101.9900 #### [facility] [address] [place], [address] Bilirubin Test strip Ql (U)O rdered By: Bill Gary on 10-26-2024 Bilirubin Ql (U) Negative Negative [facility] Bilirubin, totalOrdered By: ED PROVIDER on 10-26-2024 Bilirubin [Mass/Vol] 0.43 mg/dL 0.00-1.30 [facility] CBC W/Diff, Automatedon Absolute Lymph 1.07 X10 3/uL Normal 0.83-4.51 [facility] Comment on above: Performed By: #### L 100.0100, L501.6710, L500.4050, L101.9900 #### [facility] [address] [place], [address] Absolute Neut 3.2 X10 3/uL Normal 2.0-7.7 [facility] Comment on above: Performed By: #### L 100.0100, L501.6710, L500.4050, L101.9900 #### [facility] [address] [place], [address] IG% 0.400 Normal 0.0-0.9 [facility] Comment on above: Result Comment: IG% - Immature Granulocytes (promyelocytes, myelocytes and metamyelocytes) > 1% indicates that a LEFT SHIFT is Present. Performed By: #### L 100.0100, L501.6710, L500.4050, L101.9900 #### [facility] [address] [place], [address] Nucleated RBC (Bld) [#/Vol] 0 10*3/uL Normal 0-5 [facility] Comment on above: Performed By: #### L 100.0100, L501.6710, L500.4050, L101.9900 #### [facility] [address] [place], [address] RDW SD 41.7 fl Normal 35.1-43.9 [facility] Comment on above: Performed By: #### L 100.0100, L501.6710, L500.4050, L101.9900 #### [facility] [address] [place], [address] Carbon dioxide, total [Moles /volume] in Central venous bloodOrdered By: ED PROVIDER on 10-26-2024 CO2 [Moles/Vol] 25.2 mmol/L 21.0-32.0 [facility] Chloride assayOrdered By: ED PROVIDER on 10-26-2024 Chloride [Moles/Vol] 104 mmol/L 98-108 [facility] Comprehensive Metabolic Prof ilon 10-26-2024 Albumin [Mass/Vol] 4.4 g/dL Normal 3.4-4.8 [facility] Comment on above: Performed By: #### L 100.0100, L501.6710, L500.4050, L101.9900 #### [facility] [address] [place], [address] Albumin/Globulin [Mass ratio] 1.5 {ratio} Normal 0.9-2.4 [facility] Comment on above: Performed By: #### L 100.0100, L501.6710, L500.4050, L101.9900 #### [facility] [address] [place], [address] ALK PHOS 77 U/L Normal 40-129 [facility] Comment on above: Performed By: #### L 100.0100, L501.6710, L500.4050, L101.9900 #### [facility] [address] [place], [address] ALT [Catalytic activity/Vol] 25 U/L Normal <=46 [facility] Comment on above: Performed By: #### L 100.0100, L501.6710, L500.4050, L101.9900 #### [facility] [address] [place], [address] AST [Catalytic activity/Vol] 28 U/L Normal <=37 [facility] Comment on above: Performed By: #### L 100.0100, L501.6710, L500.4050, L101.9900 #### [facility] [address] [place], [address] Bilirubin [Mass/Vol] 0.43 mg/dL Normal 0.00-1.30 [facility] Comment on above: Performed By: #### L 100.0100, L501.6710, L500.4050, L101.9900 #### [facility] [address] [place], [address] BUN/CRE 17.1 RATIO Normal 10-20 [facility] Comment on above: Performed By: #### L 100.0100, L501.6710, L500.4050, L101.9900 #### [facility] [address] [place], [address] Calcium [Mass/Vol] 9.4 mg/dL Normal 7.6-11.0 [facility] Comment on above: Performed By: #### L 100.0100, L501.6710, L500.4050, L101.9900 #### [facility] [address] [place], [address] Chloride [Moles/Vol] 104 mmol/L Normal 98-108 [facility] Comment on above: Performed By: #### L 100.0100, L501.6710, L500.4050, L101.9900 #### [facility] [address] [place], [address] CO2 [Moles/Vol] 25.2 mmol/L Normal 21.0-32.0 [facility] Comment on above: Performed By: #### L 100.0100, L501.6710, L500.4050, L101.9900 #### [facility] [address] [place], [address] Creatinine [Mass/Vol] 0.94 mg/dL Normal 0.70-1.20 [facility] Comment on above: Performed By: #### L 100.0100, L501.6710, L500.4050, L101.9900 #### [facility] [address] [place], [address] ECRCL 75.87 ml/min Normal 50-250 [facility] Comment on above: Performed By: #### L 100.0100, L501.6710, L500.4050, L101.9900 #### [facility] [address] [place], [address] GAP 9 Normal 5-15 [facility] Comment on above: Performed By: #### L 100.0100, L501.6710, L500.4050, L101.9900 #### [facility] [address] [place], [address] GFR/1.73 sq M.predicted among non-blacks MDRD (S/P/Bld) [Vol rate/Area] 82 mL/min/{1.73_m2} Normal >60 [facility] Comment on above: Result Comment: mL/m in/1.73m2 CKD-EPI Creatinine Equation (2020) Performed By: #### L 100.0100, L501.6710, L500.4050, L101.9900 #### [facility] [address] [place], [address] Globulin (S) [Mass/Vol] 2.8 g/dL Normal 2.2-4.2 [facility] Comment on above: Performed By: #### L 100.0100, L501.6710, L500.4050, L101.9900 #### [facility] [address] [place], [address] Glucose [Mass/Vol] 121 mg/dL High 70-99 [facility] Comment on above: Performed By: #### L 100.0100, L501.6710, L500.4050, L101.9900 #### [facility] [address] [place], [address] Potassium [Moles/Vol] 4.4 mmol/L Normal 3.3-5.1 [facility] Comment on above: Performed By: #### L 100.0100, L501.6710, L500.4050, L101.9900 #### [facility] [address] [place], [address] Sodium [Moles/Vol] 138 mmol/L Normal 133-145 [facility] Comment on above: Performed By: #### L 100.0100, L501.6710, L500.4050, L101.9900 #### [facility] [address] [place], [address] T PROT 7.2 g/dL Normal 5.9-8.4 [facility] Comment on above: Performed By: #### L 100.0100, L501.6710, L500.4050, L101.9900 #### [facility] [address] [place], [address] Urea nitrogen [Mass/Vol] 16 mg/dL Normal 4-19 [facility] Comment on above: Performed By: #### L 100.0100, L501.6710, L500.4050, L101.9900 #### [facility] [address] [place], [address] Discharge Instructionon 04-0 Discharge Instruction [facility] Medical Records Department [address] [place] [address] Instructions for Home/Discharge Instructions 10/26/24 1841 MR#: [id number] Acct: [id number] Name: ZION MARSH Rep #: [id number] : 1945 79 From: Vickie Limon MD PCP: Dr. Abe Gilmore MD Status:DIS ROBERT Discharge Instructions Diet Discharge Diet: Light diet - advance as tolerated Activity May shower in (days): 5 (Keep umbilical dressing clean dry and intact for 5 days. Okay to tape off with a Ziploc bag to shower. Or lower shower and upper sponge bath.) Lifting Restrictions: no lifting >20 lbs x 2 wks, no strenuous exercise for 4 wks Additional Activity Instructions:: - Dressing / Incision Call your doctor if your incision/area has: Continuous Slow Oozing, Sudden Increased Bleeding, Increased Pain/ Swelling, Increased Redness, Foul Smelling Discharge and Swelling at the incision site Call your doctor if you observe: Fever of 101 or Higher Remove Dressing in: 5 days (After 5 days okay to remove surgical dressing. Place cotton ball or rolled up gauze in bellybutton and retape daily for 2 more days.) Cleanse incision/area with: Do not get Incision Wet (for 5 days) Additional Dressing/Incision Instructions:: Steri-Strips will fall off in 7 to 10 days, if they do not fall off okay to remove after 10 days. Follow Up Care Please Follow Up With: Vickie Limon MD When: Call the office for a follow-up appointment 2 weeks; after 5 PM and on the weekends call [phone] with any concerns. Test Results: Test results from this visit will be discussed in further detail at your follow-up appointment, if applicable. Discharge Plan Admission Admit Date/Time: 10/26/24 17:41 Attending Provider: Vickie Limon Primary Care Provider: Abe Gilmore Discharge Orders/Prescriptions Prescriptions: New tramadol 50 mg tablet 50 mg PO Q6H PRN (Reason: pain) Qty: 7 0RF Continued atorvastatin 40 MG tablet 40 mg PO QHS Patient Comments: CHOLESTEROL LOWERING tamsulosin 0.4 MG capsule 0.4 mg PO QHS Patient Comments: PROSTATE finasteride 5 MG tablet 5 mg PO QHS Patient Comments: PROSTATE Venlafaxine Xr [Effexor Xr] 75 MG capsule 150 mg PO QHS Patient Comments: DEPRESSION Cardura XL 4 MG tablet extended release 24hr 4 mg PO DAILY Omeprazole [Prilosec] 40 MG capsule 40 mg PO DAILY multivitamin Tablet 1 tab PO DAILY losartan 50 mg tablet 50 mg PO DAILY Patient Comments: TAKE 1 TABLET BY MOUTH EVERY DAY zinc 50 mg Tablet 50 mg PO DAILY gabapentin 100 mg capsule 200 mg PO QHS Patient Comments: TAKE 2 CAPSULES BY MOUTH EVERY DAY AT BEDTIME cholecalciferol (vitamin D3) [Vitamin D3] 25 mcg (1,000 unit) Capsule 25 mcg PO DAILY ferrous sulfate [FeroSul] 325 mg (65 mg iron) Tablet 325 mg PO 1200,1700 14 Days Qty: 28 0RF folic acid 1 mg Tablet 1 mg PO BIDCM 14 Days Qty: 28 0RF sennosides-docusate sodium [Stool Softener-Stimulant Laxat] 8.6-50 mg Tablet 2 tab PO BID Qty: 20 0RF Rx Instructions: Take until first bowel movement, then as needed Held aspirin 81 MG tablet 81 mg PO QHS Hold Instructions: Resume on 10/28/24. Patient Comments: [facility] Discontinued doxycycline monohydrate 100 mg Capsule 100 mg PO BID 13 Days Qty: 26 0RF Rx Instructions: Take for 2 weeks postoperatively while following cultures Xarelto 10 mg Tablet 10 mg PO DAILY@0600 PRN (Reason: SURGERY) Rx Instructions: Take for 2 weeks postoperatively for DVT prophylaxis Referrals / Follow Up: Abe Gilmore MD [Primary Care Provider] - Disposition Disposition (needs filled in before D/C Order can be placed): Home, Self Care 10/27/24 1037 Vickie Limon MD CC: Dr. Abe Gilmore MD Signed [facility] Emergency Department Summary on 10-26-2024 Emergency Department Summary [facility] Medical Records Department [address] [place] [address] Emergency Department Summary 10/26/24 MR#: [id number] Acct: [id number] Name: ZION MARSH Rep #: [id number] : 1945 79 From: Bill Gary MD PCP: Dr. Abe Gilmore MD Status:DIS ROBERT Location: NC3 [id number] HPI History of Present Illness Chief Complaint: Abd Pain Detail of Chief Complaint: Patient presents because of abdominal pain, and no bowel movement for the p Informant: patient and spouse/S.O. Onset/Context/Timing Onset: Days Context: Sudden Onset Timing: Continuous Quality: Pain which she states initially was lower quadrant now umbilicus Location: Presently umbilicus Current Severity: Mild Maximum Severity: Moderate Worsened by: Pushing on the hernia Relieved by: Relieved by me reducing the hernia Associated Symptoms Associated Symptoms: No nausea or vomiting. Positive flatus Narrative Narrative: Patient is an 79-year-old male. He has history of hypertension, depression, BPH, GERD, iron deficiency anemia who presents with initially lower abdominal pain. Is not had abdominal several days. He now is complaining umbilical pain. He states the pain is worse if he pushes on it. He denies nausea or vomiting. He does have flatus. He has not noticed any black or maroon stool prior to the constipation. He has not seen a surgeon for the hernia. He did not realize he had a hernia until today. His attempted him to come in earlier this week. He declined. Prior similar symptoms: No PFSH PFSH Medical History Contact dermatitis due to poison francois Hypertension History of MRSA infection Wears glasses Anxiety Uses wheelchair Arthritis Kidney stones High cholesterol Gastric reflux Non-smoker CPAP (continuous positive airway pressure) dependence Sleep apnea History of pain when walking History of stress test History of echocardiogram Cardiology follow-up encounter BPH (benign prostatic hyperplasia) Dyslipidemia Nephrolithiasis Coronary artery disease Home Medications ???Medication ???Instructions ???Recorded ???Last Taken ???Type Venlafaxine Xr [Effexor Xr] 150 mg PO QHS DEPRESSION 04/04/15 04/14/15 History aspirin 81 mg tablet,delayed 81 mg PO QHS BLOOD THINNER 5 04/14/15 History release Held on 10/26/24. Instructions: Resume on 10/28/24. atorvastatin 40 mg tablet 40 mg PO QHS CHOLESTEROL 04/04/15 04/14/15 History finasteride 5 mg tablet 5 mg PO QHS URINATION 04/04/15 History tamsulosin 0.4 mg capsule 0.4 mg PO QHS URINATION 04/04/15 0 04/14/15 History Omeprazole [Prilosec] 40 mg PO DAILY GERD 01/23/1712/20 History doxazosin 4 mg tablet,extended 4 mg PO DAILY HEART 01/23/1712/20 History release 24 hr (Cardura XL) cholecalciferol (vitamin D3) 25 25 mcg PO DAILY SUPPLEMENT 2 Unknown History mcg (1,000 unit) capsule (Vitamin D3) gabapentin 100 mg capsule 200 mg PO QHS PAIN 12/17/21 Unknow n History losartan 50 mg tablet 50 mg PO DAILY BP 12/17/21 2 History multivitamin 1 tab PO DAILY SUPPLEMENT 12/17/21 Unknown History tramadol 50 mg tablet 50 mg PO Q6H PRN pain #7 tabs 04 2/25 Unknown Rx Allergy/AdvReac Type Severity Reaction Status Date / Time No Known Allergies Allergy Verified 10/26/24 11:34 Surgical History Hx of bilateral cataract extraction Hx of hernia repair Hx of appendectomy History of carpal tunnel release of both wrists Hx of repair of right rotator cuff Hx of repair of left rotator cuff Hx of bilateral hip replacements Social History household members: spouse Smoking Status: Never smoker ROS ROS ED Constitutional Constitutional ED: Denies chills, fever(s), subjective or sweats Eyes Eyes: Denies blurry vision or change in vision ENT ENT ED: Denies ear pain or rhinorrhea Cardiovascular Cardiovascular: Denies chest pain, palpitations or racing heartbeat Respiratory/Chest Respiratory/Chest: Denies cough, dyspnea or dyspnea on exertion Gastrointestinal Gastrointestinal: Reports abdominal pain and constipation; Denies diarrhea, melena, nausea or vomiting Genitourinary Genitourinary ED: Denies dysuria, hematuria or urinary frequency Musculoskeletal Musculoskeletal: Denies arthralgias or myalgias Integumentary Denies rash Endocrine Endocrinology: Denies cold intolerance or heat intolerance Hematologic/Lymphati c Hematologic/Lymphati c: Reports systems reviewed and no addt'l complaints, except as documented EXAM Physical Exam Const Vital Signs: 10/26/24 11:31 10/26/24 14:27 10/26/24 16:00 Temperature 98.2 F Temperature So (more content not included)... [facility] Eosinophil percentageOrdered By: ED PROVIDER on 10-26-2024 Eosinophils/100 WBC (Bld) 4.4 % 0-5 [facility] Comment on above: Performed By: #### L 100.0100, L501.6710, L500.4050, L101.9900 #### [facility] [address] [place], [address] Epithelial cells.squamous LM Ql (Urine sed)Ordered By: Bill Gary on 10-26-2024 Epithelial cells.squamous LM.HPF (Urine sed) [#/Area] 0 /[HPF] 0-5 [facility] Erythrocyte distribution wid th (RBC) [Ratio]Ordered By: ED PROVIDER on 10-26-2024 Erythrocyte distribution width (RBC) [Entitic vol] 41.7 fL 35.1-43.9 [facility] Erythrocyte distribution wid th ratioOrdered By: ED PROVIDER on 10-26-2024 Erythrocyte distribution width (RBC) [Ratio] 12.8 % 11.6-14.6 [facility] Comment on above: Performed By: #### L 100.0100, L501.6710, L500.4050, L101.9900 #### [facility] [address] [facility] [place], [place], [id number] Erythrocyte distribution wid th standard deviationOrdered By: ED PROVIDER on 10-26-2024 Erythrocyte distribution width (RBC) [Ratio] 41.7 fl 35.1-43.9 [facility] Estimation of creatinine jaden aranceOrdered By: ED PROVIDER on 10-26-2024 Estimated Creatinine Clearance Calc 75.87 ml/min 50-250 [facility] GFR/1.73 sq M.predicted osmel g non-blacks MDRD (S/P/Bld) [Vol rate/Area]Ordered By: ED PROVIDER on 10-26-2024 Estimated GFR (MDRD) Non-Af Amer 82 >60 [facility] Comment on above: mL/min/1.73m2 CKD-EP I Creatinine Equation (2020) Glomerular filtration rate ( GFR) estimation/1.73 sq m using serum, plasma, or whole bOrdered By: ED PROVIDER on 10-26-2024 GFR/1.73 sq M.predicted among non-blacks MDRD (S/P/Bld) [Vol rate/Area] 82 mL/min/{1.73_m2} >60 [facility] Comment on above: mL/min/1.73m2 CKD-EP I Creatinine Equation (2020) Glucose Ql (U)Ordered By: Sarah Gary on 10-26-2024 Urine Glucose (UA) Normal mg/dl Normal [facility] H AND P Exam - Surgicalon H&P Exam - Surgical [facility] Medical Records Department [address] [place] [address] H P Exam - Surgical 10/26/24 1623 MR#: [id number] Acct: [id number] Name: ZION MARSH Rep #: [id number] : 1945 79 From: Vickie Limon MD PCP: Dr. Abe Gilmore MD Status:REG ER Location: ED HPI - General General Date of Admission: 10/26/24 HPI Narrative ZION MARSH, is a 79 M who presents due to umbilical hernia. Patient states he has had this for 50 years. On Thursday he started noticed maybe a little bit bigger than usual also had not really been able to have a bowel movement. Patient was able to tolerate diet during this time. Patient did take some laxative last night was able to have a bowel movement today. However there is some color change at the umbilical hernia site which had him concerned so he came to the ER. ER physician was able to push some of the hernia back in but there is still some contents that were out. Unable to get a great story from patient if he has been able to push it back in or not sounds like he has been tried maybe for at least a year. Previous abdominal surgeries appendectomy and inguinal hernia surgery. [facility] Medical History Contact dermatitis due to poison francois Hypertension History of MRSA infection Wears glasses Anxiety Uses wheelchair Arthritis Kidney stones High cholesterol Gastric reflux Non-smoker CPAP (continuous positive airway pressure) dependence Sleep apnea History of pain when walking History of stress test History of echocardiogram Cardiology follow-up encounter BPH (benign prostatic hyperplasia) Dyslipidemia Nephrolithiasis Coronary artery disease Home Medications ???Medication ???Instructions ???Recorded ???Last Taken ???Type Venlafaxine Xr [Effexor Xr] 150 mg PO QHS DEPRESSION 04/04/15 04/14/15 History aspirin 81 mg tablet,delayed 81 mg PO QHS BLOOD THINNER 5 04/14/15 History release atorvastatin 40 mg tablet 40 mg PO QHS CHOLESTEROL 04/04/15 04/14/15 History finasteride 5 mg tablet 5 mg PO QHS URINATION 04/04/15 History sildenafil 100 mg tablet (Viagra) 100 mg PO DAILY PRN PRN Not 04/04 Unknown History Specified tamsulosin 0.4 mg capsule 0.4 mg PO QHS URINATION 04/04/15 0 04/14/15 History Omeprazole [Prilosec] 40 mg PO DAILY GERD 01/23/1712/20 History doxazosin 4 mg tablet,extended 4 mg PO DAILY HEART 01/23/1712/20 History release 24 hr (Cardura XL) cholecalciferol (vitamin D3) 25 25 mcg PO DAILY SUPPLEMENT 2 Unknown History mcg (1,000 unit) capsule (Vitamin D3) gabapentin 100 mg capsule 200 mg PO QHS PAIN 12/17/21 Unknow n History losartan 50 mg tablet 50 mg PO DAILY BP 12/17/21 2 History multivitamin 1 tab PO DAILY SUPPLEMENT 12/17/21 Unknown History zinc 50 mg tablet 50 mg PO DAILY SUPPLEMENT 12/17/21 Unknown History acetaminophen 500 mg tablet 1,000 mg (2 x 500 mg) PO Q8 #100 0 12/21/21 Unknown Rx tabs doxycycline monohydrate 100 mg 100 mg PO BID 13 days #26 caps Unknown Rx capsule ferrous sulfate 325 mg (65 mg 325 mg PO 1200,1700 14 days #28 Unknown Rx iron) tablet (FeroSul) tabs folic acid 1 mg tablet 1 mg PO BIDCM 14 days #28 tabs Unknown Rx oxycodone 5 mg tablet 5 - 10 mg (1 - 2 x 5 mg) PO Q4H Unknown Rx PRN PRN Pain Score 4-10 5 days #42 tabs rivaroxaban 10 mg tablet (Xarelto) 10 mg PO DAILY@0600 #13 tabs Unknown Rx sennosides 8.6 mg-docusate sodium 2 tab PO BID #20 tabs 12/21/21 Un known Rx 50 mg tablet (Stool Softener-Stimulant Laxative) prednisone 10 mg tablet 10 mg PO DIRECTED #30 tabs 12/16 Unknown Rx Allergy/AdvReac Type Severity Reaction Status Date / Time No Known Allergies Allergy Verified 10/26/24 11:34 Surgical History Hx of bilateral cataract extraction Hx of hernia repair Hx of appendectomy History of carpal tunnel release of both wrists Hx of repair of right rotator cuff Hx of repair of left rotator cuff Hx of bilateral hip replacements Social History (Updated 10/26/24 @ 14:[address] Bill Gary MD) household members: spouse Smoking Status: Never smoker Vital Signs Vital Signs Vital Signs: 10/26/24 11:31 10/26/24 14:27 Temperature 98.2 F Temperature Source Oral Pulse Rate 73 56 L Respiratory Rate 17 16 Blood Pressure 102/76 162/73 H Blood Pressure Mean 84 102 Pulse Ox 100 99 Oxygen Delivery Method Room Air Room Air Weight Weight: 230 lb 4.8 oz Body Mass Index (BMI) 33.0 Physical Exam Const alert, oriented x3 and no apparent distress HEENT normocephalic and head/scalp atraumatic Resp norm (more content not included)... [facility] Hemoglobin measurementOrdere d By: ED PROVIDER on 10-26-2024 Hemoglobin (Bld) [Mass/Vol] 13.2 g/dL 13.0-16.5 [facility] Comment on above: Performed By: #### L 100.0100, L501.6710, L500.4050, L101.9900 #### [facility] [address] [place], [address] Immature granulocytes/100 WB C Auto (Bld)Ordered By: ED PROVIDER on 10-26-2024 Immature granulocytes/100 WBC (Bld) 0.400 % 0.0-0.9 [facility] Comment on above: IG% - Immature Granu locytes (promyelocytes, myelocytes and metamyelocytes) > 1% indicates that a LEFT SHIFT is Present. Ketones Test strip Ql (U)Ord ered By: Bill Gary on 10-26-2024 Ketones Ql (U) Negative Negative [facility] - Chemistry and C hemistry - challengeOrdered By: ED PROVIDER on 10-26-2024 AST [Catalytic activity/Vol] 28 U/L <38 [facility] Lactic Acidon 10-26-2024 Lactate [Moles/Vol] 1.7 mmol/L Normal 0.0-2.0 [facility] Comment on above: Order Comment: Y Performed By: #### L 100.0100, L501.6710, L500.4050, L101.9900 #### [facility] [address] [place], [place], [id number] Lactic acid measurementOrder ed By: Bill Gary on 10-26-2024 Lactate [Moles/Vol] 1.7 mmol/L 0.0-2.0 [facility] Lipaseon 10-26-2024 Lipase [Catalytic activity/Vol] 25 U/L Normal 13-75 [facility] Comment on above: Result Comment: Plea se note: LIPASE revised reference range effective 22. New Lipase methodology. Expected to produce lower values than the previous assay method. NEW Reference Range: 13 - 75 U/L Performed By: #### L 100.0100, L501.6710, L500.4050, L101.9900 #### [facility] [address] [facility] [place], [address] Lipase measurementOrdered By : ED PROVIDER on 10-26-2024 Lipase [Catalytic activity/Vol] 25 U/L 13-75 [facility] Comment on above: Please note:LIPASE r evised reference range effective 22. New Lipase methodology. Expected to produce lower values than the previous assay method. NEW Reference Range: 13 - 75 U/L Lymphocytes Auto (Unsp spec) [#/Vol]Ordered By: ED PROVIDER on 10-26-2024 Lymphocytes (Bld) [#/Vol] 1.07 10*3/uL 0.83-4.51 [facility] MCV (mean corpuscular volume ) determinationOrdered By: ED PROVIDER on 10-26-2024 MCV (RBC) [Entitic vol] 90.7 fL 80-94 [facility] Comment on above: Performed By: #### L 100.0100, L501.6710, L500.4050, L101.9900 #### [facility] [address] [place], [place], [id number] MR/POSTOP.ANEon 10-26-2024 MR/POSTOP.ANE [facility] Medical Records Department [address] [place] [address] Anesthesia Postop Eval I 10/26/241855 MR#: [id number] Acct: [id number] Name: ZION MARSH Rep #: [id number] : 1945 79 From: Chai Durand MD PCP: Dr. Abe Gilmore MD Status:ADM ROBERT Y Race: C Location: [place] [address]-1 Anesthesia: Postop Eval I Current Vital Signs Temperature: 97.2 F Pulse Rate: 62 Blood Pressure: 122/60 Respiratory Rate: 16 Pulse Ox: 96 Oxygen Delivery Method: Room Air Assessment Airway patent: Yes Spontaneous unlabored respirations: Yes Mental status: Awake nausea: No Vomiting: No Anesthesia Complication: No Fluid Hydration Crystalloid volume administer (ml): 400 Total IV fluid infused: 400 Progress Note Anesthesia document: Postop Eval 1 completed: Yes 10/26/241856 Date Chai Durand MD Cosigner Signature: Date CC: Signed [facility] MR/[id number] 10-26-2024 [facility] Medical Records Department [address] [place] [address] [place] [address] Anesthesia Postop Eval II 10/26/241857 MR#: [id number] Acct: [id number] Name: ZION MARSH Rep #: [id number] : 1945 79 From: Chai Durand MD PCP: Dr. Abe Gilmore MD Status:ADM ROBERT Y Race: C Location: [address] Anesthesia Postop Eval I Sum Postop Eval Completion status Anesthesia document: Postop Eval 1 completed: Yes Anesthesia Postop Eval I Summary Anesthesia Postop Eval I Summary: Anesthesia Postop Eval I: Assessment Summary Airway patent Yes 10/26/24 18:57 Spontaneous unlabored Yes 10/26/24 18:57 respirations Mental status Awake 10/26/24 18:57 nausea No 10/26/24 18:57 Vomiting No 10/26/24 18:57 Anesthesia Postop Eval I: Fluid Summary Crystalloid volume administer 400 10/26/24 18:57 (ml) Colloids volume administered ( ml) Blood Product volume administered (ml) Total IV fluid infused 400 10/26/24 18:57 Anesthesia Postop Eval I: Summary Notes Anesthesia Complication No 10/26/24 18:57 Anesthesia Complication Comment: Post-operative progress note Anesthesia: Postop Eval II Evaluation Mental status: Awake Pain Level: 1 nausea: No Vomiting: No 10/26/24 1858 Date Chai Perez Signature: Date CC: Signed [facility] Mean corpuscular hemoglobin (MCH) determinationOrdered By: ED PROVIDER on 10-26-2024 MCH (RBC) [Entitic mass] 30.6 pg 27.0-32.0 [facility] Comment on above: Performed By: #### L 100.0100, L501.6710, L500.4050, L101.9900 #### [facility] [address] [place], [address] Mean corpuscular hemoglobin concentration (MCHC) determinationOrdered By: ED PROVIDER on 10-26-2024 MCHC (RBC) [Mass/Vol] 33.7 g/dL Normal 32-36 [facility] Comment on above: Performed By: #### L 100.0100, L501.6710, L500.4050, L101.9900 #### [facility] [address] [place], [address] Mean platelet volume determi nationOrdered By: ED PROVIDER on 10-26-2024 Platelet mean volume (Bld) [Entitic vol] 9.7 fL Normal 6.2-12.0 [facility] Comment on above: Performed By: #### L 100.0100, L501.6710, L500.4050, L101.9900 #### [facility] [address] [place], [address] Microscopic analysis of urin e for red blood cells (RBC)Ordered By: Bill Gary on 10-26-2024 Microscopic analysis of urine for red blood cells (RBC) 0-5 SEEN /hpf 0-5 [facility] Urine RBC 0-5 SEEN /hpf 0-5 [facility] Monocyte percentageOrdered B y: ED PROVIDER on 10-26-2024 Monocytes/100 WBC (Bld) 8.3 % 0-10 [facility] Comment on above: Performed By: #### L 100.0100, L501.6710, L500.4050, L101.9900 #### [facility] [address] [place], [address] Mucus LM Ql (Urine sed)Order ed By: Bill Gary on 10-26-2024 Mucus Ql (Urine sed) 0 SEEN /hpf [facility] Neutrophil percentageOrdered By: ED PROVIDER on 10-26-2024 Neutrophils/100 WBC (Bld) 64.3 % 47-70 [facility] Comment on above: Performed By: #### L 100.0100, L501.6710, L500.4050, L101.9900 #### [facility] [address] [place], [address] Nitrite Test strip Ql (U)Ord ered By: Bill Gary on 10-26-2024 Nitrite Ql (U) Negative Negative [facility] No Panel InformationOrdered By: ED PROVIDER on 10-26-2024 28 U/L <38 [facility] Nucleated red blood cell per centageOrdered By: ED PROVIDER on 10-26-2024 Nucleated RBC/100 WBC (Bld) [Ratio] 0 % 0-5 [facility] Operative Reporton Operative Report [facility] Medical Records Department [address] [place] [address] Operative Report 10/26/24 1836 MR#: [id number] Acct: [id number] Name: ZION MARSH Rep #: [id number] : 1945 79 From: Vickie Limon MD PCP: Dr. Abe Gilmore MD Status:DIS ROBERT Location: [address] Operative Report (Standard) Operative Information Date of Procedure: 10/26/24 Pre-Operative Diagnosis: Incarcerated umbilical hernia Post-Operative Diagnosis: Same Surgery/Procedure Performed: Incarcerated umbilical hernia repair instructional support specialist: Yes Insert Operator: Jaun Bryant Tasks completed by nurses medical assistants phlebotomists: Opening closing Type of Anesthesia: General/Supplemental RN Documented Start/Stop Times: Operation Date: 10/26/24 17:30 Case Time Into Pre-Op 10/26/24 17:29 Out of Pre-Op 10/26/24 18:01 Anesthesia Start 10/26/24 18:02 Into Room 10/26/24 18:02 Procedure Start 10/26/24 18:16 Procedure End 10/26/24 18:48 Anesthesia End 10/26/24 18:53 Out of Room 10/26/24 18:53 Into Recovery 10/26/24 18:55 Out of Recovery 10/26/24 19:47 Procedure Start Time: 18:16 Procedure Stop Time: 18:48 Select all DRAINS/GRAFTS/IMPLAN TS that apply: None Special Medications: Ancef 2 g IV x 1 Estimated Blood Loss: <10 cc Specimen collected: Yes Description of specimen(s) removed: Umbilical sac and content Description of surgery: Patient was brought into the room placed supine on the operating table. Correct patient, procedure, site, positioning, special, was verified prior to procedure. General anesthesia was induced. The abdomen was prepped draped in usual sterile fashion. A curvilinear incision was made below the umbilicus with a 15 blade scalpel. This was deepened with electrocautery. A hemostat was used to go around the stalk of the umbilicus and Metzenbaum scissors was used to carefully divide the hernia sac from the skin of the umbilicus. The fascia around the hernia defect was cleared and the hernia defect measured 1.4 x 1 cm. Hernia sac and likely calcified nodule connected to hernia sac sent to pathology. The hernia defect was closed with a [id number] 1 Nurolon. The wound was irrigated with saline. Hemostasis was assured. The skin of the umbilicus was secured to the fascia using 3-0 Vicryl suture interrupted. The incision was closed with 3-0 Vicryl subdermal interrupted sutures and the skin was closed with interrupted 4-0 Monocryl sutures. Steri-Strips and Tegaderm and OpSite were placed over the incision once sterile cotton balls were placed in the umbilicus. Patient was extubated. Patient tolerated procedure well and was taken to the postanesthesia care unit in stable condition. Surgical Findings: See operative report Complications Complications: No 10/27/24 1040 Cosigner Signature (if applicable): CC: Dr. Vickie Limon MD; Dr. Abe Gilmore MD Signed [facility] Platelet countOrdered By: ED PROVIDER on 10-26-2024 Platelets (Bld) [#/Vol] 146 10*3/uL Low 150-450 [facility] Comment on above: Performed By: #### L 100.0100, L501.6710, L500.4050, L101.9900 #### [facility] [address] [facility] [place], [address] Potassium (Unsp spec) [Mass/ Vol]Ordered By: ED PROVIDER on 10-26-2024 Potassium [Moles/Vol] 4.4 mmol/L 3.3-5.1 [facility] Potassium measurement (mass/ volume)Ordered By: ED PROVIDER on 10-26-2024 Potassium (Unsp spec) [Mass/Vol] 4.4 mmol/L 3.3-5.1 [facility] Protein Test strip Ql (U)Ord ered By: Bill Gary on 10-26-2024 Protein Ql (U) 30 mg/dl High Negative [facility] Serum creatinine measurement (mass/volume)Ordered By: ED PROVIDER on 10-26-2024 Creatinine [Mass/Vol] 0.94 mg/dL 0.70-1.20 [facility] Serum globulin measurementOr dered By: ED PROVIDER on 10-26-2024 Globulin (S) [Mass/Vol] 2.8 g/dL 2.2-4.2 [facility] Serum glucose measurement (m ass/volume)Ordered By: ED PROVIDER on 10-26-2024 Glucose [Mass/Vol] 121 mg/dL High 70-99 [facility] Serum or plasma alanine [place] otransferase (ALT) measurementOrdered By: ED PROVIDER on 10-26-2024 ALT [Catalytic activity/Vol] 25 U/L <47 [facility] Serum or plasma albumin ibrahima urement (mass/volume)Ordered By: ED PROVIDER on 10-26-2024 Albumin [Mass/Vol] 4.4 g/dL 3.4-4.8 [facility] Serum or plasma albumin/glob ulin mass ratioOrdered By: ED PROVIDER on 10-26-2024 Albumin/Globulin [Mass ratio] 1.5 {ratio} 0.9-2.4 [facility] Serum or plasma alkaline tr[place] sphatase measurementOrdered By: ED PROVIDER on 10-26-2024 ALP [Catalytic activity/Vol] 77 U/L 40-129 [facility] Serum or plasma calcium ibrahima urement (mass/volume)Ordered By: ED PROVIDER on 10-26-2024 Calcium [Mass/Vol] 9.4 mg/dL 7.6-11.0 [facility] Serum or plasma urea nitroge n measurement (mass/volume)Ordered By: ED PROVIDER on 10-26-2024 Urea nitrogen [Mass/Vol] 16 mg/dL 4-19 [facility] Sodium levelOrdered By: TERE ECKERT on 10-26-2024 Sodium [Moles/Vol] 138 mmol/L 133-145 [facility] Squamous epithelial cells de tection in urine sediment by light microscopyOrdered By: Bill Gary on 10-26-2024 Epithelial cells.squamous LM Ql (Urine sed) 0-5 SEEN /hpf 0-5 [facility] Surgery Specimen Level IIon 10-26-2024 Surgery Specimen Level II Patient Age/Sex Location Account Attending Physician ZION MARSH 79/M MS3 [id number] Dr. Vickie Limon MD Specimen: [id number] Received: 10/27/24 Status: JOSHUA Love Num: [id number] Spec Type: Hernia Subm Dr: Dr. Vickie Limon MD HEADER OPERATION: Hernia, umbilical repair with mesh PRE-OP DIAGNOSIS: Incarcerated umbilical hernia TISSUE SUBMITTED: A- Hernia sac and contents MICROSCOPIC DIAGNOSIS A. Umbilical Hernia, Incarcerated Sac and Contents, excision: * Fibroadipose tissue partially covered by an attenuated mesothelium consistent with hernia sac, with focal nodular fat necrosis. MICROSCOPIC DESCRIPTION Slides are reviewed. GROSS DESCRIPTION A. Received in formalin in a container labeled with the patient's name, date of , and hernia sac and contents are 2 tucker-lord, rubbery fragments of soft tissue measuring 3.5 x 2.3 x 0.8 cm and 3.5 x 2.3 x 1.2 cm. The largest fragment is notable for a 1.4 x 1.2 x 1.0 cm tucker-yellow, indurated nodule. Serial sections reveal yellow and granular surfaces with central pallor. The remaining specimens are sectioned to reveal tucker-yellow, lobulated surfaces with no hemorrhage or necrosis. Instrumentation Tech sections:A1-2. Majority of nodule with sampled fatty soft tissue [facility] 10-27-2024 CPT:67928 Patient Age/Sex Location Account Attending Physician ZION MARSH 79/M MS3 [id number] Dr. Vickie Limon MD Signed (signature on file) Dr. Jessa Garcia MD 11/07/24 8733 Normal [facility] Comment on above: Performed By: #### P SUII ####[facility] [address] [place], [address] Total proteinOrdered By: ED PROVIDER on 10-26-2024 Protein [Mass/Vol] 7.2 g/dL 5.9-8.4 [facility] Urinalysis, Completeon 10-26 EPI,SQUAMOUS 0-5 SEEN Normal 0-5 [facility] Comment on above: Order Comment: COLLE CTOR TO SPECIFY Performed By: #### L 100.0100, L501.6710, L500.4050, L101.9900 #### [facility] [address] [place], [address] RBC 0-5 SEEN Normal 0-5 [facility] Comment on above: Order Comment: COLLE CTOR TO SPECIFY Performed By: #### L 100.0100, L501.6710, L500.4050, L101.9900 #### [facility] [address] [place], [address] WBC 0-5 SEEN Normal 0-5 [facility] Comment on above: Order Comment: COLLE CTOR TO SPECIFY Performed By: #### L 100.0100, L501.6710, L500.4050, L101.9900 #### [facility] [address] [place], [address] BACTERIA 0 SEEN Normal None Seen [facility] Comment on above: Order Comment: COLLE CTOR TO SPECIFY Performed By: #### L 100.0100, L501.6710, L500.4050, L101.9900 #### [facility] [address] [place], [address] Mucus Ql (Urine sed) 0 SEEN Normal [facility] Comment on above: Order Comment: SILVESTRE CTOR TO SPECIFY Performed By: #### L 100.0100, L501.6710, L500.4050, L101.9900 #### [facility] [address] [place], [address] Urine blood detectionOrdered By: Bill Abdirahman on 10-26-2024 Urine Occult Blood 25 /ul High Negative [facility] Urine clarityOrdered By: Billgeorgi Gary on 10-26-2024 Clarity (U) Clear Clear [facility] Urine color determinationOrd ered By: Bill Gary on 10-26-2024 Color (U) Yellow Yellow [facility] Urine glucose detectionOrder ed By: Bill Gary on 10-26-2024 Glucose Ql (U) Normal mg/dl Normal [facility] Urine leukocyte esterase det ection by dipstickOrdered By: iBll Gary on 10-26-2024 Leukocyte esterase Test strip Ql (U) 25 /ul High Negative [facility] Urine pHOrdered By: Bill laureano on 10-26-2024 pH (U) 6.5 [pH] 5.0 - 8.0 [facility] Urine sediment bacteria coun t by microscopy (number/high power field)Ordered By: Bill Gary on 10-26-2024 Bacteria LM.HPF (Urine sed) [#/Area] 0 /[HPF] None Seen [facility] Urine specific gravity measu rementOrdered By: Bill Gary on 10-26-2024 Specific gravity (U) [Rel density] 1.010 1.002-1.030 [facility] Urine urobilinogen measureme ntOrdered By: Bill Gary on 10-26-2024 Urobilinogen Ql (U) Normal mg/dl Normal [facility] Urobilinogen Ql (U)Ordered B y: Bill Gary on 10-26-2024 Urine Urobilinogen Normal mg/dl Normal [facility] White blood cell (WBC) count Ordered By: ED PROVIDER on 10-26-2024 WBC (Bld) [#/Vol] 5.0 10*3/uL 4.4-11.0 [facility] Comment on above: Performed By: #### L 100.0100, L501.6710, L500.4050, L101.9900 #### [facility] [address] [place], [address] White blood cell countOrdere d By: Bill Gary on 10-26-2024 Urine WBC 0-5 SEEN /hpf 0-5 [facility] White blood cell count 0-5 SEEN /hpf 0-5 [facility] CNOVon 10-21-2024 CNOV Office Visit (FAMPWS) ZION MARSH ([id number]) 1945 M Date Time Provider Department 10/21/24 8:40 AM [facility] your visit today, we recorded the following information about you: Pulse Respiration Blood pressure Weight 58/minute 14/minute 118/64 105.7 kg Abe Gilmore MD 10/21/2024 9:00 AM Signed Patient presents with: Follow Up: 6 months HPI: Patient presents today for office visit for follow up. Cpap:uses cpap Tolerating well. GERD:no gerd. Tolerating meds. HLD:no myalgias. Labs up to date. HYPERTENSION:feeling well with. No chest pain or shortness of breath. No edema. No dizziness. Psych:no side effects with meds. Tolerating meds. Seeing rheum. Uses tramadol with rheum. Uses gapapentin. Due to see local urology. Sees Dr Guidry next month. Has follow up with cardiology in December. Latest Ref Rng 10/13/2024 Hemoglobin A1C 4.3 - 5.6 % 5.7 (H) Estimated Average Glucose mg/dL 117 Legend: (H) HighAB : MEDICATIONS: Current Outpatient Medications Medication Sig omeprazole (PRILOSEC) 20 mg capsule TAKE 2 CAPSULES BY MOUTH DAILY BEFORE BREAKFAST. atorvastatin (LIPITOR) 40 mg tablet Take 1 tablet by mouth daily at bedtime. doxazosin (CARDURA) 4 mg tablet Take 1 tablet by mouth once daily. losartan (COZAAR) 50 mg tablet Take 1 tablet by mouth once daily. venlafaxine ER (EFFEXOR XR) 150 mg 24 hr capsule Take 1 capsule by mouth once daily. tamsulosin (FLOMAX) 0.4 mg Take 0.4 mg by mouth daily at bedtime. tramadol HCl (TRAMADOL ORAL) Take 50 mg by mouth four times daily. gabapentin (NEURONTIN) 100 mg capsule Take 100 mg by mouth daily at bedtime. finasteride (PROSCAR) 5 mg tablet Take 1 tablet by mouth once daily. aspirin, enteric coated (ASPIRIN, ENTERIC COATED) 81 mg EC tablet Take 1 tablet by mouth once daily. No current facility-administere d medications for this visit. 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 Coronary artery disease Elevated BP 01/02/2011 Esophagitis, unspecified GENERAL OSTEOARTHROSIS 07/29/2007 GERD (gastroesophageal reflux disease) Heartburn gastritis Hypertension Impaired fasting glucose WI, old silent on EKG Mixed hyperlipidemia 07/21/2008 Personal history of colonic polyps Renal calculi Snoring Syncope 06/23/2019 Umbilical hernia 11/14/2009 PAST SURGICAL HISTORY Procedure Laterality Date APPENDECTOMY ARTHRP ACETBLR/PROX FEM PROSTC AGRFT/ALGRFT 07/02/09 right Hip replacement, total ARTHRP ACETBLR/PROX FEM PROSTC AGRFT/ALGRFT 08/27/09 left Hip replacement, total CARDIAC CATH 12/30/10 no stents COLONOSCOPY FLX DX W/COLLJ SPEC WHEN PFRMD 11-23-13 diverticulosis, repeat in 5 years COLONOSCOPY FLX DX W/COLLJ SPEC WHEN PFRMD 12/06/2018 Colonoscopy COLONOSCOPY W/BIOPSY SINGLE/MULTIPLE ?, 10/10/08 EGD TRANSORAL BIOPSY SINGLE/MULTIPLE 10/10/08 ESOPHAGOGASTRODUODEN OSCOPY TRANSORAL DIAGNOSTIC 01/14/16 EGD INGUINAL HERNIA REPAIR HX right PAST SURGICAL HISTORY OF basket retrieval kidney stones RECONSTRUCTION ROTATOR CUFF AVULSION CHRONIC 04/2011 right-workers comp ROTATOR CUFF REPAIR 2011 left, [place] SALIVARY SURG UNLISTED PROC ? 1970s ? Mass removed from right cheek FAMILY HISTORY Problem Relation Age of Onset Heart Mother [place] Heart Brother Cancer Brother bone None Father unknown Heart Brother 45 [place] Social History Tobacco Use Smoking status: Never Smokeless tobacco: Never Substance Use Topics Alcohol use: No Drug use: No Reviewed current medications, allergies, past medical history, surgical history, family history and social history today. REVIEW OF SYSTEMS No gu issues. No gi issues. All other reviewed and negative other than HPI. HEALTH MAINTENANCE: Reviewed health maintenance issues today and recommended the following in detail. Advance Directive Discussion - is surrogate. VITALS: BP 118/64 Pulse (!) 58 Resp 14 Wt 105.7 kg (233 lb) SpO2 98% BMI 33.43 kg/m? Last 4 Encounter Wt Readings: Date: Wt: 10/21/2024 105.7 kg (233 lb) 09/02/2024 108.4 kg (238 lb 15.7 oz) 04/22/2024 104.6 kg (230 lb 9.6 oz) 02/03/2024 100.4 kg (221 lb 5.5 oz) PHYSICAL EXAMINATION: General appearance: Well appearing, alert, in no acute distress, well-hydrated, well nourished. Skin: Skin color, texture, turgor normal, no suspicious rashes or lesions Head: Normocephalic, no masses, lesions, tenderness or abnormalities Neck: Supple, no adenopathy; thyroid symmetric, normal size, no bruits Lungs: Lungs clear to auscultation. No wheezing, rhonchi, rales Heart: RRR without murmur, gallop, or rubs. No ectopy Abdomen: Normal abdominal exam, Abdomen soft, non-tender. Bowel sounds normal. No masses, organomegaly (more content not included)... Normal [facility] HbA1c (Bld)on 10-13-2024 Average glucose Estimated from glycated hemoglobin (Bld) [Mass/Vol] 117 mg/dL Normal [facility] Comment on above: Order Comment: Speci men Type: BLOOD SPECIMENOrdering Facility: [facility] Address: [address] [place] [address] Result Comment: eAG: (Estimated average glucose) is a calculated value from HgbA1c and is automobile sales representative of the average blood glucose level in the last 2-3 month period. Performed By: #### 5 5454-3 ####[facility] [id number] [address] [place] HbA1c (Bld) [Mass fraction] 5.7 % High 4.3-5.6 [facility] Comment on above: Order Comment: Speci men Type: BLOOD SPECIMENOrdering Facility: [facility] Address: [address] [place] [address] Result Comment: [place] Diabetes Association guidelines indicate that patients with HgbA1c in the range 5.7-6.4% are at increased risk for development of diabetes, and intervention by lifestyle modification may be beneficial. HgbA1c greater or equal to 6.5% is considered diagnostic of diabetes. Performed By: #### 5 5454-3 ####[facility] [id number] [place] [id number] [place] [facility] CNOVon 09-02-2024 CNOV Office Visit (UCWSTR) ZION MARSH ([id number]) 1945 M Date Time Provider Department 09/02/24 9:45 AM LM URBINA [facility] During your visit today, we recorded the following information about you: Temperature Pulse Respiration Blood pressure 97.1 degrees 70/minute 21/minute 168/72 Weight 108.4 kg Lm Urbina MD 09/02/2024 10:19 AM Signed Patient presents with: Urinary Problem: Lower back pain on right side, possible kidney stone x 1.5 weeks HPI: Back pain: Duration: couple weeks Character: cramping and sharp. Feels similar to prior kidney stones. Location: right lower back Radiation: No. Aggravating: Relieving: positioning to get abrupt cramps to relax Pain relievers: tramadol Associated: Hx of stones, takes daily flomax Pertinent negatives: Denies numbness, leg pain, fever, dysuria, hematuria, change in urinary frequency MEDICATIONS: omeprazole (PRILOSEC) 20 mg capsule TAKE 2 CAPSULES BY MOUTH DAILY BEFORE BREAKFAST. atorvastatin (LIPITOR) 40 mg tablet Take 1 tablet by mouth daily at bedtime. doxazosin (CARDURA) 4 mg tablet Take 1 tablet by mouth once daily. losartan (COZAAR) 50 mg tablet Take 1 tablet by mouth once daily. venlafaxine ER (EFFEXOR XR) 150 mg 24 hr capsule Take 1 capsule by mouth once daily. tamsulosin (FLOMAX) 0.4 mg Take 0.4 mg by mouth daily at bedtime. tramadol HCl (TRAMADOL ORAL) Take 50 mg by mouth four times daily. gabapentin (NEURONTIN) 100 mg capsule Take 100 mg by mouth daily at bedtime. finasteride (PROSCAR) 5 mg tablet Take 1 tablet by mouth once daily. aspirin, enteric coated (ASPIRIN, ENTERIC COATED) 81 mg EC tablet Take 1 tablet by mouth once daily. ALLERGIES: ALLERGIES No Known Allergies VITALS: BP 168/72 Pulse 70 Temp 36.2 ?C (97.1 ?F) Resp 21 Wt 108.4 kg (238 lb 15.7 oz) SpO2 98% BMI 34.29 kg/m? PHYSICAL EXAM: GEN: pleasant, alert, no acute distress HEENT: PERRL, EOMI, MMM HEART: regular rate, regular rhythm, no murmurs LUNGS: clear to auscultation, no wheezes or crackles, no increased WOB BACK: Normal curvature of spine. No midline tenderness. No paraspinal tenderness. Straight leg test negative. Normal lower extremity strength. ABD: Soft, non-distended, non-tender, no masses ASSESSMENT/PLAN: 1. Acute right-sided low back pain without sciatica - ICD9: 724.2, ICD10: M54.50 (primary diagnosis) 2. Recurrent kidney stones - ICD9: 592.0, ICD10: N20.0 - UA DIP, URINE (POC) - trace protein and trace LE. Suspect renal colic. Imaging recommended to check for obstructing stone. His PCP team is not available for an appointment this morning. He will contact his urologist to see if this can be worked up as an outpatient; ER evaluation if not. Lm Urbina MD Allergies As of Date: 09/02/2024 (No Known Allergies) Date Reviewed: 09/02/2024 Reviewed by: Ashlee Pal MA - Fully Assessed Reason for Visit: Urinary Problem [252] Cmt: Lower back pain on right side, possible kidney stone x 1.5 weeks Primary Visit Diagnosis:Acute right-sided low back pain without sciatica [M54.50] Other Visit Diagnosis:Recurrent kidney stones [N20.0] Order(s):UA DIP, URINE (POC) [1322471] Order #: [id number] #:[id number] Prescriptions as of 09/02/2024 - omeprazole (PRILOSEC) 20 mg capsule TAKE 2 CAPSULES BY MOUTH DAILY BEFORE BREAKFAST. - atorvastatin (LIPITOR) 40 mg tablet Take 1 tablet by mouth daily at bedtime. - doxazosin (CARDURA) 4 mg tablet Take 1 tablet by mouth once daily. - losartan (COZAAR) 50 mg tablet Take 1 tablet by mouth once daily. - venlafaxine ER (EFFEXOR XR) 150 mg 24 hr capsule Take 1 capsule by mouth once daily. - tamsulosin (FLOMAX) 0.4 mg Take 0.4 mg by mouth daily at bedtime. - tramadol HCl (TRAMADOL ORAL) Take 50 mg by mouth four times daily. - gabapentin (NEURONTIN) 100 mg capsule Take 100 mg by mouth daily at bedtime. - finasteride (PROSCAR) 5 mg tablet Take 1 tablet by mouth once daily. - aspirin, enteric coated (ASPIRIN, ENTERIC COATED) 81 mg EC tablet Take 1 tablet by mouth once daily. Problem List As Of Date 09/02/2024 Noted Resolved BPH w/o urinary obs/LUTS [N40.0] 07/10/2006 01/02/2011 Essential hypertension [I10] 07/10/2006 Adjustment Disorder with Depressed Mood [F43.21]07/10/2006 Primary osteoarthritis involving multiple joint*07/29/2007 Mixed Hyperlipidemia [E78.2] 07/21/2008 Heartburn [R12] 10/10/2008 04/04/2016 Dyspepsia and other specified disorders of func*10/10/2008 04/04/2016 Acute gastritis without mention of hemorrhage [*10/10/2008 05/19/2023 Personal history of colonic polyps [Z86.0100] 10/10/2008 04/04/2016 Benign Neoplasm of Colon [D12.6] 10/10/2008 Routine physical examination [Z00.00] 11/14/2009 10/04/2015 Umbilical Hernia [K42.9] 11/14/2009 ED (erectile dysfunction) [N52.9] 11/14/2009 04/25/2021 Dysmetabolic (more content not included)... Normal [facility] UA DIP, URINE (POC)on 2024 BILIRUBIN UA (POCT) Negative Negative [facility] CLARITY U[facility] (POCT) [facility] COLOR UA (POCT) Dark yellow [facility] GLUCOSE UA (POCT) Negative Negative mg/dL [facility] Hemoglobin Ql (U) Negative Negative [facility] Interpretation and review of laboratory results Abnormal [facility] KETONE UA (POCT) Negative Negative mg/dL [facility] LEUKOCYTES UA (POCT) Trace Abnormal Negative [facility] NITRITE UA (POCT) Negative Negative [facility] PH UA (POCT) 6.5 4.5 - 8.[address] [facility] Protein Ql (U) Trace Abnormal Negative mg/dL [facility] SPECIFIC GRAVITY UA (POCT) 1.015 1.005 - 1.[address] [facility] UROBILINOGEN UA (POCT) 0.2 Molly l E.U./dL [facility] Location:[address], [place], [place], [id number] [place] [address] POINT OF CARE [facility] Absolute neutrophil countOrd ered By: Candida Jain on 08-01-2024 Neutrophils (Bld) [#/Vol] 4.0 10*3/uL 2.0-7.7 [facility] Albumin to globulin ratioOrd ered By: Candida Jain on 08-01-2024 Albumin/Globulin [Mass ratio] 1.2 {ratio} 0.9-2.4 [facility] Basophil percentageOrdered B y: Candida Jain on 08-01-2024 Basophils/100 WBC (Bld) 1.0 % 0-1 [facility] Bilirubin, totalOrdered By: Candida Jain on 08-01-2024 Bilirubin [Mass/Vol] 0.40 mg/dL 0.20-1.00 [facility] Comment on above: For patients on eltr ombopag therapy, use of Dimension [place] TBIL is not recommended. Blood urea nitrogen (BUN)/cr eatinine ratioOrdered By: Candida Jain on 08-01-2024 Urea nitrogen/Creatinine [Mass ratio] 19.7 mg/mg 10-20 [facility] C-reactive protein measureme nt by high sensitivity methodOrdered By: Candida Jain on 08-01-2024 C-Reactive Protein Extended Range < 2.90 mg/L 0.0-3.0 [facility] Comment on above: C-Reactive Protein ( CRP) provides useful information for thediagnosis, therapy and monitoring of inflammatory processesand associated diseases. For the evaluation of Relative Riskfor Cardiovascular Disease, a High Sensitivity CRP (HSCRP)should be ordered. CBC W/Diff, Automatedon Absolute Lymph 1.31 X10 3/uL Normal 0.83-4.51 [facility] Comment on above: Performed By: #### L 100.0100, L501.6710, L500.4050, L101.9900 #### [facility] [address] [place], [address] Absolute Neut 4.0 X10 3/uL Normal 2.0-7.7 [facility] Comment on above: Performed By: #### L 100.0100, L501.6710, L500.4050, L101.9900 #### [facility] [address] [place], [address] Basophils/100 WBC (Bld) 1.0 % Normal 0-1 [facility] Comment on above: Performed By: #### L 100.0100, L501.6710, L500.4050, L101.9900 #### [facility] [address] [place], [address] Eosinophils/100 WBC (Bld) 3.8 % Normal 0-5 [facility] Comment on above: Performed By: #### L 100.0100, L501.6710, L500.4050, L101.9900 #### [facility] [address] [place], [address] Erythrocyte distribution width (RBC) [Ratio] 12.4 % Normal 11.6-14.6 [facility] Comment on above: Performed By: #### L 100.0100, L501.6710, L500.4050, L101.9900 #### [facility] [address] [place], [address] Hematocrit (Bld) [Volume fraction] 40.4 % Normal 40-54 [facility] Comment on above: Performed By: #### L 100.0100, L501.6710, L500.4050, L101.9900 #### [facility] [address] [place], [address] Hemoglobin (Bld) [Mass/Vol] 13.2 g/dL Normal 13.0-16.5 [facility] Comment on above: Performed By: #### L 100.0100, L501.6710, L500.4050, L101.9900 #### [facility] [address] [place], [address] IG% 0.300 Normal 0.0-0.9 [facility] Comment on above: Result Comment: IG% - Immature Granulocytes (promyelocytes, myelocytes and metamyelocytes) > 1% indicates that a LEFT SHIFT is Present. Performed By: #### L 100.0100, L501.6710, L500.4050, L101.9900 #### [facility] [address] [place], [address] Lymphocytes/100 WBC (Bld) 21.7 % Normal 19-41 [facility] Comment on above: Performed By: #### L 100.0100, L501.6710, L500.4050, L101.9900 #### [facility] [address] [place], [address] MCH (RBC) [Entitic mass] 29.9 pg Normal 27.0-32.0 [facility] Comment on above: Performed By: #### L 100.0100, L501.6710, L500.4050, L101.9900 #### [facility] [address] [place], [address] MCHC (RBC) [Mass/Vol] 32.7 g/dL Normal 32-36 [facility] Comment on above: Performed By: #### L 100.0100, L501.6710, L500.4050, L101.9900 #### [facility] [address] [place], [address] MCV (RBC) [Entitic vol] 91.4 fL Normal 80-94 [facility] Comment on above: Performed By: #### L 100.0100, L501.6710, L500.4050, L101.9900 #### [facility] [address] [place], [address] Monocytes/100 WBC (Bld) 7.1 % Normal 0-10 [facility] Comment on above: Performed By: #### L 100.0100, L501.6710, L500.4050, L101.9900 #### [facility] [address] [place], [address] Neutrophils/100 WBC (Bld) 66.1 % Normal 47-70 [facility] Comment on above: Performed By: #### L 100.0100, L501.6710, L500.4050, L101.9900 #### [facility] [address] [place], [address] Nucleated RBC (Bld) [#/Vol] 0 10*3/uL Normal 0-5 [facility] Comment on above: Performed By: #### L 100.0100, L501.6710, L500.4050, L101.9900 #### [facility] [address] [place], [address] Platelet mean volume (Bld) [Entitic vol] 10.3 fL Normal 6.2-12.0 [facility] Comment on above: Performed By: #### L 100.0100, L501.6710, L500.4050, L101.9900 #### [facility] [address] [place], [address] Platelets (Bld) [#/Vol] 179 10*3/uL Normal 150-450 [facility] Comment on above: Performed By: #### L 100.0100, L501.6710, L500.4050, L101.9900 #### [facility] [address] [place], [address] RBC (Bld) [#/Vol] 4.42 10*6/uL Low 4.6-6.2 [facility] Comment on above: Performed By: #### L 100.0100, L501.6710, L500.4050, L101.9900 #### [facility] [address] [place], [address] RDW SD 40.9 fl Normal 35.1-43.9 [facility] Comment on above: Performed By: #### L 100.0100, L501.6710, L500.4050, L101.9900 #### [facility] [address] [place], [address] WBC (Bld) [#/Vol] 6.1 10*3/uL Normal 4.4-11.0 [facility] Comment on above: Performed By: #### L 100.0100, L501.6710, L500.4050, L101.9900 #### [facility] [address] [place], [address] CRPon 08-01-2024 C-REACTIVE PROT < 2.90 Normal 0.0-3.0 [facility] Comment on above: Result Comment: C-Re active Protein (CRP) provides useful information for the diagnosis, therapy and monitoring of inflammatory processes and associated diseases. For the evaluation of Relative Risk for Cardiovascular Disease, a High Sensitivity CRP (HSCRP) should be ordered. Performed By: #### L 100.0100, L501.6710, L500.4050, L101.9900 #### [facility] [address] [place], [address] Carbon dioxide measurementOr dered By: Candida Jain on 08-01-2024 CO2 [Moles/Vol] 30.0 mmol/L 21.0-32.0 [facility] Chloride measurementOrdered By: Candida Jain on 08-01-2024 Chloride [Moles/Vol] 105 mmol/L 98-107 [facility] Comprehensive Metabolic Prof ilon 08-01-2024 Albumin [Mass/Vol] 4.0 g/dL Normal 3.2-5.0 [facility] Comment on above: Performed By: #### L 100.0100, L501.6710, L500.4050, L101.9900 #### [facility] [address] [place], [address] Albumin/Globulin [Mass ratio] 1.2 {ratio} Normal 0.9-2.4 [facility] Comment on above: Performed By: #### L 100.0100, L501.6710, L500.4050, L101.9900 #### [facility] [address] [place], [address] ALK P 71 U/L Normal 45-117 [facility] Comment on above: Performed By: #### L 100.0100, L501.6710, L500.4050, L101.9900 #### [facility] [address] [place], [address] ALT [Catalytic activity/Vol] 32 U/L Normal 16-61 [facility] Comment on above: Performed By: #### L 100.0100, L501.6710, L500.4050, L101.9900 #### [facility] [address] [place], [address] AST [Catalytic activity/Vol] 20 U/L Normal 15-37 [facility] Comment on above: Performed By: #### L 100.0100, L501.6710, L500.4050, L101.9900 #### [facility] [address] [place], [address] Bilirubin [Mass/Vol] 0.40 mg/dL Normal 0.20-1.00 [facility] Comment on above: Result Comment: For patients on eltrombopag therapy, use of Dimension [place] TBIL is not recommended. Performed By: #### L 100.0100, L501.6710, L500.4050, L101.9900 #### [facility] [address] [place], [address] BUN/CRE 19.7 RATIO Normal 10-20 [facility] Comment on above: Performed By: #### L 100.0100, L501.6710, L500.4050, L101.9900 #### [facility] [address] [place], [address] CA,Total 9.2 mg/dL Normal 8.5-10.1 [facility] Comment on above: Performed By: #### L 100.0100, L501.6710, L500.4050, L101.9900 #### [facility] [address] [place], [address] Chloride [Moles/Vol] 105 mmol/L Normal 98-107 [facility] Comment on above: Performed By: #### L 100.0100, L501.6710, L500.4050, L101.9900 #### [facility] [address] [place], [address] CO2 [Moles/Vol] 30.0 mmol/L Normal 21.0-32.0 [facility] Comment on above: Performed By: #### L 100.0100, L501.6710, L500.4050, L101.9900 #### [facility] [address] [place], [address] Creatinine [Mass/Vol] 0.86 mg/dL Normal 0.70-1.30 [facility] Comment on above: Result Comment: The validity of the calculated GFR GFRAA in patients over 70 years has not been determined. Clinical correlation is essential. Performed By: #### L 100.0100, L501.6710, L500.4050, L101.9900 #### [facility] [address] [place], [address] EST GFR - AA 110 mL/min Normal >60 [facility] Comment on above: Result Comment: Afri can [place] GFR Calc Performed By: #### L 100.0100, L501.6710, L500.4050, L101.9900 #### [facility] [address] [place], [address] GAP 3 Low 5-15 [facility] Comment on above: Performed By: #### L 100.0100, L501.6710, L500.4050, L101.9900 #### [facility] [address] [place], [address] GFR/1.73 sq M.predicted among non-blacks MDRD (S/P/Bld) [Vol rate/Area] 91 mL/min/{1.73_m2} Normal >60 [facility] Comment on above: Result Comment: Non- GFR Calc Performed By: #### L 100.0100, L501.6710, L500.4050, L101.9900 #### [facility] [address] [place], [address] Globulin (S) [Mass/Vol] 3.3 g/dL Normal 2.2-4.2 [facility] Comment on above: Performed By: #### L 100.0100, L501.6710, L500.4050, L101.9900 #### [facility] [address] [place], [address] Glucose [Mass/Vol] 121 mg/dL High 74-106 [facility] Comment on above: Result Comment: Fast ing Glucose result from 100 to 125 mg/dL suggests IMPAIRED HOMEOSTASIS per A.D.A. criteria. Performed By: #### L 100.0100, L501.6710, L500.4050, L101.9900 #### [facility] [address] [place], [address] Potassium [Moles/Vol] 4.1 mmol/L Normal 3.5-5.1 [facility] Comment on above: Performed By: #### L 100.0100, L501.6710, L500.4050, L101.9900 #### [facility] [address] [place], [address] Sodium [Moles/Vol] 138 mmol/L Normal 136-145 [facility] Comment on above: Performed By: #### L 100.0100, L501.6710, L500.4050, L101.9900 #### [facility] [address] [place], [address] T PROT 7.3 g/dL Normal 6.4-8.2 [facility] Comment on above: Performed By: #### L 100.0100, L501.6710, L500.4050, L101.9900 #### [facility] [address] [place], [address] Urea nitrogen [Mass/Vol] 17 mg/dL Normal 7-18 [facility] Comment on above: Performed By: #### L 100.0100, L501.6710, L500.4050, L101.9900 #### [facility] [address] [place], [address] Eosinophil percentageOrdered By: Candida Jain on 08-01-2024 Eosinophils/100 WBC (Bld) 3.8 % 0-5 [facility] Erythrocyte Sed Rateon 08-01 SED RATE 2 mm/hr Normal 0-20 [facility] Comment on above: Performed By: #### L 100.0100, L501.6710, L500.4050, L101.9900 #### [facility] [address] [place], [address] Erythrocyte distribution wid th (RBC) [Ratio]Ordered By: Candida Jain on 08-01-2024 Erythrocyte distribution width (RBC) [Entitic vol] 40.9 fL 35.1-43.9 [facility] Erythrocyte distribution wid th ratioOrdered By: Candida Jain on 08-01-2024 Erythrocyte distribution width (RBC) [Ratio] 12.4 % 11.6-14.6 [facility] Erythrocyte sedimentation ra teOrdered By: Candida Jain on 08-01-2024 ESR (Bld) [Velocity] 2 mm/h 0-20 [facility] Estimated glomerular filtrat ion rate (GFR) AmericanOrdered By: Candida Jain on 08-01-2024 Estimated GFR (MDRD) Amer 110 mL/min >60 [facility] Comment on above: GFR Calc Glomerular filtration rate ( GFR) estimationOrdered By: Candida Jain on 08-01-2024 Estimated GFR (MDRD) Non-Af Amer 91 mL/min >60 [facility] Comment on above: Non- GFR Calc Glucose measurementOrdered B y: Candida Jain on 08-01-2024 Glucose [Mass/Vol] 121 mg/dL High 74-106 [facility] Comment on above: Fasting Glucose resu lt from 100 to 125 mg/dL suggests IMPAIRED HOMEOSTASIS per A.D.A. criteria. Hematocrit Auto (Bld) [Volum e fraction]Ordered By: Candida Jain on 08-01-2024 Hematocrit (Bld) [Volume fraction] 40.4 % 40-54 [facility] Hemoglobin measurementOrdere d By: Candida Jain on 08-01-2024 Hemoglobin (Bld) [Mass/Vol] 13.2 g/dL 13.0-16.5 [facility] Immature granulocytes/100 WB C Auto (Bld)Ordered By: Candidaroe Jain on 08-01-2024 Immature granulocytes/100 WBC (Bld) 0.300 % 0.0-0.9 [facility] Comment on above: IG% - Immature Granu locytes (promyelocytes, myelocytes and metamyelocytes) > 1% indicates that a LEFT SHIFT is Present. Laboratory - Chemistry and C hemistry - challengeOrdered By: Candida Jain on 08-01-2024 AST [Catalytic activity/Vol] 20 U/L 15-37 [facility] Lymphocytes Auto (Unsp spec) [#/Vol]Ordered By: Candida Jain on 08-01-2024 Lymphocytes (Bld) [#/Vol] 1.31 10*3/uL 0.83-4.51 [facility] Lymphocytes/100 WBC Auto (Un sp spec)Ordered By: Candida Jain on 08-01-2024 Lymphocytes/100 WBC (Bld) 21.7 % 19-41 [facility] MCV (mean corpuscular volume ) determinationOrdered By: Candida Jain on 08-01-2024 MCV (RBC) [Entitic vol] 91.4 fL 80-94 [facility] Mean corpuscular hemoglobin (MCH) determinationOrdered By: Candida Jain on 08-01-2024 MCH (RBC) [Entitic mass] 29.9 pg 27.0-32.0 [facility] Mean corpuscular hemoglobin concentration (MCHC) determinationOrdered By: Candida Jain on 08-01-2024 MCHC (RBC) [Mass/Vol] 32.7 g/dL 32-36 [facility] Mean platelet volume determi nationOrdered By: Candida Jain on 08-01-2024 Platelet mean volume (Bld) [Entitic vol] 10.3 fL 6.2-12.0 [facility] Monocyte percentageOrdered B y: Candida Jain on 08-01-2024 Monocytes/100 WBC (Bld) 7.1 % 0-10 [facility] Neutrophil percentageOrdered By: Candida Jain on 08-01-2024 Neutrophils/100 WBC (Bld) 66.1 % 47-70 [facility] Nucleated red blood cell per centageOrdered By: Candida Jain on 08-01-2024 Nucleated RBC/100 WBC (Bld) [Ratio] 0 % 0-5 [facility] Platelet countOrdered By: Seng Jain on 08-01-2024 Platelets (Bld) [#/Vol] 179 10*3/uL 150-450 [facility] Potassium measurementOrdered By: Candida Jain on 08-01-2024 Potassium [Moles/Vol] 4.1 mmol/L 3.5-5.1 [facility] RBC Auto (Bld) [#/Vol]Ordere d By: Candida Jain on 08-01-2024 RBC (Bld) [#/Vol] 4.42 10*6/uL Low 4.6-6.2 [facility] Serum anion gap measurementO rdered By: Candida Jain on 08-01-2024 Anion gap [Moles/Vol] 3 mmol/L Low 5-15 [facility] Serum globulin measurementOr dered By: Candida Jain on 08-01-2024 Globulin (S) [Mass/Vol] 3.3 g/dL 2.2-4.2 [facility] Serum or plasma alanine [place] otransferase (ALT) measurementOrdered By: Candida Jain on 08-01-2024 ALT [Catalytic activity/Vol] 32 U/L 16-61 [facility] Serum or plasma albumin ibrahima urement (mass/volume)Ordered By: Candida Jain on 08-01-2024 Albumin [Mass/Vol] 4.0 g/dL 3.2-5.0 [facility] Serum or plasma alkaline [place] sphatase measurementOrdered By: Candida Jain on 08-01-2024 ALP [Catalytic activity/Vol] 71 U/L 45-117 [facility] Serum or plasma calcium ibrahima urement (mass/volume)Ordered By: Candida Jain on 08-01-2024 Calcium [Mass/Vol] 9.2 mg/dL 8.5-10.1 [facility] Serum or plasma creatinine m easurement (mass/volume)Ordered By: Candida Jain on 08-01-2024 Creatinine [Mass/Vol] 0.86 mg/dL 0.70-1.30 [facility] Comment on above: The validity of the calculated GFR & GFRAA in patients over 70 years has not been determined. Clinical correlation is essential. Serum or plasma urea nitroge n measurement (mass/volume)Ordered By: Candida Jain on 08-01-2024 Urea nitrogen [Mass/Vol] 17 mg/dL 7-18 [facility] Sodium levelOrdered By: Marah Jain on 08-01-2024 Sodium [Moles/Vol] 138 mmol/L 136-145 [facility] Total proteinOrdered By: Patricia Jain on 08-01-2024 Protein [Mass/Vol] 7.3 g/dL 6.4-8.2 [facility] White blood cell (WBC) count Ordered By: Candida Jain on 08-01-2024 WBC (Bld) [#/Vol] 6.1 10*3/uL 4.4-11.0 [facility] CNOVon 04-22-2024 CNOV Office Visit (FAMPWS) ZION MARSH ([id number]) 1945 Date Time Provider Department 04/22/24 10:40 [facility] visit today, we recorded the following information about you: Pulse Blood pressure Weight Height 59/minute 130/64 104.6 kg 1.778 m Abe Gilmore MD 04/22/2024 11:13 AM Signed Patient presents with: 6 Month Exam HPI: Patient presents today for office visit for follow up. No concerns today. HTN: Denies chest pain and shortness of breath Denies headaches Occasional dizziness Denies palpitations Had several occasions this summer where he was lightheaded and fell. Was not drinking enough. No vertigo. No syncope. Follows with cardiology. Denies edema. HLD: No myalgias JOSE: Using CPAP nightly Sleeping well through the night No snoring Feels rested when waking sometimes Does nap throughout the day Has daytime fatigue Benefiting from CPAP use and should continue therapy GERD: Symptoms controlled. Still seeing rheumatology and cardiology. Latest Ref Rng 04/12/2024 WBC 3.70 - 11.00 k/uL 5.07 RBC 4.20 - 6.00 m/uL 4.29 Hemoglobin 13.0 - 17.0 g/dL 13.3 Hematocrit 39.0 - 51.0 % 41.2 MCV 80.0 - 100.0 fL 96.0 MCH 26.0 - 34.0 pg 31.0 MCHC 30.5 - 36.0 g/dL 32.3 RDW-CV 11.5 - 15.0 % 12.5 Platelet Count 150 - 400 k/uL 160 MPV 9.0 - 12.7 fL 10.9 Neut% % 51.2 Abs Neut (ANC) 1.45 - 7.50 k/uL 2.60 Lymph% % 30.2 Abs Lymph 1.00 - 4.00 k/uL 1.53 [place]% % 8.1 Abs [place] <0.87 k/uL 0.41 Eosin% % 8.7 Abs Eosin <0.46 k/uL 0.44 Baso% % 1.4 Abs Baso <0.11 k/uL 0.07 Immature Gran % % 0.4 IMMATURE GRANS (ABS) <0.10 k/uL <0.03 NRBC /100 WBC 0.0 Absolute nRBC <0.01 k/uL <0.01 DTYPE Auto Protein, Total 6.3 - 8.0 g/dL 6.4 Albumin 3.9 - 4.9 g/dL 4.2 Calcium 8.5 - 10.2 mg/dL 9.1 Bilirubin, Total 0.2 - 1.3 mg/dL 0.5 Alkaline Phosphatase 38 - 113 U/L 61 AST 14 - 40 U/L 29 ALT 10 - 54 U/L 26 Glucose 74 - 99 mg/dL 103 (H) BUN 9 - 24 mg/dL 21 Creatinine 0.73 - 1.22 mg/dL 0.93 Sodium 136 - 144 mmol/L 139 Potassium 3.7 - 5.1 mmol/L 4.5 Chloride 98 - 107 mmol/L 103 CO2 22 - 30 mmol/L 26 Anion Gap 8 - 15 mmol/L 10 eGFR >=60 mL/min/1.73m? 84 Cholesterol, Total <200 mg/dL 141 Triglyceride <150 mg/dL 122 HDL Cholesterol >39 mg/dL 45 Non HDL Cholesterol <130 mg/dL 96 Fasting Time hrs 12 VLDL Cholesterol <30 mg/dL 24 TC:HDL Ratio <5.10 3.13 LDL Cholesterol <100 mg/dL 72 LDL:HDL Ratio <2.54 1.60 Hemoglobin A1C 4.3 - 5.6 % 5.7 (H) Estimated Average Glucose mg/dL 117 Legend: (H) High MEDICATIONS: Current Outpatient Medications Medication Sig atorvastatin (LIPITOR) 40 mg tablet Take 1 tablet by mouth daily at bedtime. doxazosin (CARDURA) 4 mg tablet Take 1 tablet by mouth once daily. losartan (COZAAR) 50 mg tablet Take 1 tablet by mouth once daily. venlafaxine ER (EFFEXOR XR) 150 mg 24 hr capsule Take 1 capsule by mouth once daily. omeprazole (PRILOSEC) 20 mg capsule TAKE 2 CAPSULES BY MOUTH DAILY BEFORE BREAKFAST. tamsulosin (FLOMAX) 0.4 mg Take 0.4 mg by mouth daily at bedtime. tramadol HCl (TRAMADOL ORAL) Take 50 mg by mouth four times daily. gabapentin (NEURONTIN) 100 mg capsule Take 100 mg by mouth daily at bedtime. finasteride (PROSCAR) 5 mg tablet Take 1 tablet by mouth once daily. aspirin, enteric coated (ASPIRIN, ENTERIC COATED) 81 mg EC tablet Take 1 tablet by mouth once daily. No current facility-administere d medications for this visit. 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 Coronary artery disease Elevated BP 01/02/2011 Esophagitis, unspecified GENERAL OSTEOARTHROSIS 07/29/2007 GERD (gastroesophageal reflux disease) Heartburn gastritis Hypertension Impaired fasting glucose WI, old silent on EKG Mixed hyperlipidemia 07/21/2008 Personal history of colonic polyps Renal calculi Snoring Syncope 06/23/2019 Umbilical hernia 11/14/2009 PAST SURGICAL HISTORY Procedure Laterality Date APPENDECTOMY ARTHRP ACETBLR/PROX FEM PROSTC AGRFT/ALGRFT 07/02/09 right Hip replacement, total ARTHRP ACETBLR/PROX FEM PROSTC AGRFT/ALGRFT 08/27/09 left Hip replacement, total CARDIAC CATH 12/30/10 no stents COLONOSCOPY FLX DX W/COLLJ SPEC WHEN PFRMD 11-23-13 diverticulosis, repeat in 5 years COLONOSCOPY FLX DX W/COLLJ SPEC WHEN PFRMD 12/06/2018 Colonoscopy COLONOSCOPY W/BIOPSY SINGLE/MULTIPLE ?, 10/10/08 EGD TRANSORAL BIOPSY SINGLE/MULTIPLE 10/10/08 ESOPHAGOGASTRODUODEN OSCOPY TRANSORAL DIAGNOSTIC 01/14/16 EGD INGUINAL HERNIA REPAIR HX right PAST SURGICAL HISTORY OF basket retrieval kidney stones RECONSTRUCTION ROTATOR CUFF AVULSION CHRONIC 04/2011 right-workers comp ROTATOR CUFF REPAIR 2011 left, [place] SALIVARY SURG UNLIS (more content not included)... Normal [facility] CBC W Auto Differential pane l (Bld)on 04-12-2024 Basophils (Bld) [#/Vol] 0.07 10*3/uL Normal <0.11 [facility] Comment on above: Order Comment: Speci men Type: BLOOD SPECIMENOrdering Facility: [facility] Address: [address] [place] [address] Performed By: #### 5 7021-8 ####[facility] [id number] [place] [address] [place] Basophils/100 WBC (Bld) 1.4 % Normal [facility] Comment on above: Order Comment: Speci men Type: BLOOD SPECIMENOrdering Facility: [facility] Address: [address] [place] [address] Performed By: #### 5 7021-8 ####[facility] [id number] [place] [address] [place] Differential cell count method Nom (Bld) Auto Normal [facility] Comment on above: Order Comment: Speci men Type: BLOOD SPECIMENOrdering Facility: [facility] Address: [address] [place] [address] Performed By: #### 5 7021-8 ####[facility] [id number] [place] [address] [place] Eosinophils (Bld) [#/Vol] 0.44 10*3/uL Normal <0.46 [facility] Comment on above: Order Comment: Speci men Type: BLOOD SPECIMENOrdering Facility: [facility] Address: [address] [place] [address] Performed By: #### 5 7021-8 ####[facility] [id number] [place] [address] [place] Eosinophils/100 WBC (Bld) 8.7 % Normal [facility] Comment on above: Order Comment: Speci men Type: BLOOD SPECIMENOrdering Facility: [facility] Address: [address] [place] [address] Performed By: #### 5 7021-8 ####[facility] [id number] [place] [address] [place] Erythrocyte distribution width (RBC) [Ratio] 12.5 % Normal 11.5-15.0 [facility] Comment on above: Order Comment: Speci men Type: BLOOD SPECIMENOrdering Facility: [facility] Address: [address] [place] [address] Performed By: #### 5 7021-8 ####[facility] [id number] [place] [address] [place] Hematocrit (Bld) [Volume fraction] 41.2 % Normal 39.0-51.0 [facility] Comment on above: Order Comment: Speci men Type: BLOOD SPECIMENOrdering Facility: [facility] Address: [address] [place] [address] Performed By: #### 5 7021-8 ####[facility] [id number] [place] [address] [place] Hemoglobin (Bld) [Mass/Vol] 13.3 g/dL Normal 13.0-17.0 [facility] Comment on above: Order Comment: Speci men Type: BLOOD SPECIMENOrdering Facility: [facility] Address: [address] [place] [address] Performed By: #### 5 7021-8 ####[facility] [id number] [place] [address] [place] Immature granulocytes (Bld) [#/Vol] 10*3/uL Normal <0.10 [facility] Comment on above: Order Comment: Speci men Type: BLOOD SPECIMENOrdering Facility: [facility] Address: [address] [place] [address] Performed By: #### 5 7021-8 ####[facility] [id number] [place] [address] [place] Immature granulocytes/100 WBC (Bld) 0.4 % Normal [facility] Comment on above: Order Comment: Speci men Type: BLOOD SPECIMENOrdering Facility: [facility] Address: [address] [place] [address] Performed By: #### 5 7021-8 ####[facility] [id number] [place] [address] [place] Lymphocytes (Bld) [#/Vol] 1.53 10*3/uL Normal 1.00-4.00 [facility] Comment on above: Order Comment: Speci men Type: BLOOD SPECIMENOrdering Facility: [facility] Address: [address] [place] [address] Performed By: #### 5 7021-8 ####[facility] [id number] [place] [address] [place] Lymphocytes/100 WBC (Bld) 30.2 % Normal [facility] Comment on above: Order Comment: Speci men Type: BLOOD SPECIMENOrdering Facility: [facility] Address: [address] [place] [address] Performed By: #### 5 7021-8 ####[facility] [id number] [place] [address] [place] MCH (RBC) [Entitic mass] 31.0 pg Normal 26.0-34.0 [facility] Comment on above: Order Comment: Speci men Type: BLOOD SPECIMENOrdering Facility: [facility] Address: [address] [place] [address] Performed By: #### 5 7021-8 ####[facility] [id number] [place] [address] [place] MCHC (RBC) [Mass/Vol] 32.3 g/dL Normal 30.5-36.0 [facility] Comment on above: Order Comment: Speci men Type: BLOOD SPECIMENOrdering Facility: [facility] Address: [address] [place] [address] Performed By: #### 5 7021-8 ####[facility] [id number] [place] [address] [place] MCV (RBC) [Entitic vol] 96.0 fL Normal 80.0-100.0 [facility] Comment on above: Order Comment: Speci men Type: BLOOD SPECIMENOrdering Facility: [facility] Address: [address] [place] [address] Performed By: #### 5 7021-8 ####[facility] [id number] [place] [address] [place] Monocytes (Bld) [#/Vol] 0.41 10*3/uL Normal <0.87 [facility] Comment on above: Order Comment: Speci men Type: BLOOD SPECIMENOrdering Facility: [facility] Address: [address] [place] [address] Performed By: #### 5 7021-8 ####[facility] [id number] [place] [address] [place] Monocytes/100 WBC (Bld) 8.1 % Normal [facility] Comment on above: Order Comment: Speci men Type: BLOOD SPECIMENOrdering Facility: [facility] Address: [address] [place] [address] Performed By: #### 5 7021-8 ####[facility] [id number] [place] [address] [place] Neutrophils (Bld) [#/Vol] 2.60 10*3/uL Normal 1.45-7.50 [facility] Comment on above: Order Comment: Speci men Type: BLOOD SPECIMENOrdering Facility: [facility] Address: [address] [place] [address] Performed By: #### 5 7021-8 ####[facility] [id number] [place] [address] [place] Neutrophils/100 WBC (Bld) 51.2 % Normal [facility] Comment on above: Order Comment: Speci men Type: BLOOD SPECIMENOrdering Facility: [facility] Address: [address] [place] [address] Performed By: #### 5 7021-8 ####[facility] [id number] [place] [address] [place] Nucleated RBC (Bld) [#/Vol] 10*3/uL Normal <0.01 [facility] Comment on above: Order Comment: Speci men Type: BLOOD SPECIMENOrdering Facility: [facility] Address: [address] [place] [address] Performed By: #### 5 7021-8 ####[facility] [id number] [place] [address] [place] Nucleated RBC/100 WBC (Bld) [Ratio] 0.0 /[address] [facility] Comment on above: Order Comment: Speci men Type: BLOOD SPECIMENOrdering Facility: [facility] Address: [address] [place] [address] Performed By: #### 5 7021-8 ####[facility] [id number] [place] [address] [place] Platelet mean volume (Bld) [Entitic vol] 10.9 fL Normal 9.0-12.7 [facility] Comment on above: Order Comment: Speci men Type: BLOOD SPECIMENOrdering Facility: [facility] Address: [address] [place] [address] Performed By: #### 5 7021-8 ####[facility] [id number] [place] [address] [place] Platelets (Bld) [#/Vol] 160 10*3/uL Normal 150-400 [facility] Comment on above: Order Comment: Speci men Type: BLOOD SPECIMENOrdering Facility: [facility] Address: [address] [place] [address] Performed By: #### 5 7021-8 ####[facility] [id number] [place] [address] [place] RBC (Bld) [#/Vol] 4.29 10*6/uL Normal 4.20-6.00 [facility] Comment on above: Order Comment: Speci men Type: BLOOD SPECIMENOrdering Facility: [facility] Address: [address] [place] [address] Performed By: #### 5 7021-8 ####[facility] [id number] [place] [address] [place] WBC (Bld) [#/Vol] 5.07 10*3/uL Normal 3.70-11.00 [facility] Comment on above: Order Comment: Speci men Type: BLOOD SPECIMENOrdering Facility: [facility] Address: [address] [place] [address] Performed By: #### 5 7021-8 ####[facility] [id number] [place] [address] [place] Comprehensive metabolic 2000 panelon 04-12-2024 Albumin [Mass/Vol] 4.2 g/dL Normal 3.9-4.9 [facility] Comment on above: Order Comment: Speci men Type: BLOOD SPECIMENOrdering Facility: [facility] Address: [address] [place] [address] Performed By: #### 2 4323-8, 94410-6 ####[facility] [id number] [place] [address] [place] ALP [Catalytic activity/Vol] 61 U/L Normal 38-113 [facility] Comment on above: Order Comment: Speci men Type: BLOOD SPECIMENOrdering Facility: [facility] Address: [address] [place] [address] Performed By: #### 2 4323-8, 98825-5 ####[facility] [id number] [place] [address] [place] ALT [Catalytic activity/Vol] 26 U/L Normal 10-54 [facility] Comment on above: Order Comment: Speci men Type: BLOOD SPECIMENOrdering Facility: [facility] Address: [address] [place] [address] Performed By: #### 2 4323-8, 40389-9 ####[facility] [id number] [place] [id number] [place] Anion gap [Moles/Vol] 10 mmol/L Normal 8-15 [facility] Comment on above: Order Comment: Speci men Type: BLOOD SPECIMENOrdering Facility: [facility] Address: [address] [place] [address] Performed By: #### 2 4323-8, 46554-4 ####[facility] [id number] [place] [address] [place] AST [Catalytic activity/Vol] 29 U/L Normal 14-40 [facility] Comment on above: Order Comment: Speci men Type: BLOOD SPECIMENOrdering Facility: [facility] Address: [address] [place] [address] Performed By: #### 2 4323-8, 29720-4 ####[facility] [id number] [place] [address] [place] Bilirubin [Mass/Vol] 0.5 mg/dL Normal 0.2-1.3 [facility] [facility] Comment on above: Order Comment: Speci men Type: BLOOD SPECIMENOrdering Facility: [facility] Address: [address] [place] [address] Performed By: #### 2 4323-8, 55307-6 ####[facility] [id number] [place] [address] [place] Calcium [Mass/Vol] 9.1 mg/dL Normal 8.5-10.2 [facility] Comment on above: Order Comment: Speci men Type: BLOOD SPECIMENOrdering Facility: [facility] Address: [address] [place] [address] Performed By: #### 2 4323-8, 10102-3 ####[facility] [id number] [place] [address] [place] Chloride [Moles/Vol] 103 mmol/L Normal 98-107 [facility] Comment on above: Order Comment: Speci men Type: BLOOD SPECIMENOrdering Facility: [facility] Address: [address] [place] [address] Performed By: #### 2 4323-8, ####[facility] [id number] [place] [address] [place] CO2 [Moles/Vol] 26 mmol/L Normal 22-30 [facility] Comment on above: Order Comment: Speci men Type: BLOOD SPECIMENOrdering Facility: [facility] Address: [address] [place] [address] Performed By: #### 2 4323-8, ####[facility] [id number] [place] [address] [place] Creatinine [Mass/Vol] 0.93 mg/dL Normal 0.73-1.22 [facility] Comment on above: Order Comment: Speci men Type: BLOOD SPECIMENOrdering Facility: [facility] Address: [address] [place] [address] Performed By: #### 2 4323-8, ####[facility] [id number] [place] [address] [place] Creatinine and Glomerular filtration rate.predicted panel (S/P/Bld) 84 mL/min/1.73m??? Normal >=60 [facility] Comment on above: Order Comment: Speci men Type: BLOOD SPECIMENOrdering Facility: [facility] Address: [address] [place] [address] Result Comment: [place] mated Glomerular Filtration Rate (eGFR) is calculated using the 2020 CKD-EPI creatinine equation. This equation utilizes serum creatinine, sex, and age as parameters. The creatinine assay has traceable calibration to isotope dilution-mass spectrometry. Refer to KDIGO guidelines for clinical interpretation. In patients with unstable renal function, e.g. those with acute kidney injury, the eGFR may not accurately reflect actual GFR. Performed By: #### 2 4323-8, 02005-6 ####[facility] [id number] [place] [id number] [place] Glucose [Mass/Vol] 103 mg/dL High 74-99 [facility] Comment on above: Order Comment: Kristian garcia Type: BLOOD SPECIMENOrdering Facility: [facility] Address: [address] [place] [address] Result Comment: The [place] Diabetes Association (ADA) provides guidance for cutoff values for fasting glucose and random glucose. The ADA defines fasting as no caloric intake for at least 8 hours. Fasting plasma glucose results between 100 to 125 mg/dL indicate increased risk for diabetes (prediabetes). Fasting plasma glucose results greater than or equal to 126 mg/dL meet the criteria for diagnosis of diabetes. In the absence of unequivocal hyperglycemia, results should be confirmed by repeat testing. In a patient with classic symptoms of hyperglycemia or hyperglycemic crisis, random plasma glucose results greater than or equal to 200 mg/dL meet the criteria for diagnosis of diabetes. Reference: Standards of Medical Care in Diabetes 2016, [place] Diabetes Association. Diabetes Care. 2016.39(Suppl 1). Performed By: #### 2 4323-8, 83051-4 ####[facility] [id number] [place] [address] [place] Potassium [Moles/Vol] 4.5 mmol/L Normal 3.7-5.1 [facility] Comment on above: Order Comment: Kristian garcia Type: BLOOD SPECIMENOrdering Facility: [facility] Address: [address] [place] [address] Performed By: #### 2 4323-8, 22258-0 ####[facility] [id number] [place] [address] [place] Protein [Mass/Vol] 6.4 g/dL Normal 6.3-8.0 [facility] Comment on above: Order Comment: Kristian garcia Type: BLOOD SPECIMENOrdering Facility: [facility] Address: [address] [place], [place] [address] Performed By: #### 2 4323-8, 41601-9 ####[facility] [id number] [place] [address] [place] Sodium [Moles/Vol] 139 mmol/L Normal 136-144 [facility] Comment on above: Order Comment: Speci men Type: BLOOD SPECIMENOrdering Facility: [facility] Address: [address] [place] [address] Performed By: #### 2 4323-8, 01167-2 ####[facility] [id number] [place] [address] [place] Urea nitrogen [Mass/Vol] 21 mg/dL Normal 9-24 [facility] Comment on above: Order Comment: Speci men Type: BLOOD SPECIMENOrdering Facility: [facility] Address: [address] [place] [address] Performed By: #### 2 4323-8, 95948-9 ####[facility] [id number] [place] [address] [place] HbA1c (Bld)on 04-12-2024 Average glucose Estimated from glycated hemoglobin (Bld) [Mass/Vol] 117 mg/dL Normal [facility] Comment on above: Order Comment: Kaleyi men Type: BLOOD SPECIMENOrdering Facility: [facility] Address: [address] [place] [address] Result Comment: eAG: (Estimated average glucose) is a calculated value from HgbA1c and is automobile sales representative of the average blood glucose level in the last 2-3 month period. Performed By: #### 5 5454-3 ####[facility] [id number] [place] [address] [place] HbA1c (Bld) [Mass fraction] 5.7 % High 4.3-5.6 [facility] Comment on above: Order Comment: Kaleyi men Type: BLOOD SPECIMENOrdering Facility: [facility] Address: [address] [place] [address] Result Comment: [place] Diabetes Association guidelines indicate that patients with HgbA1c in the range 5.7-6.4% are at increased risk for development of diabetes, and intervention by lifestyle modification may be beneficial. HgbA1c greater or equal to 6.5% is considered diagnostic of diabetes. Performed By: #### 5 5454-3 ####[facility] [id number] [place] [address] [place] Lipid 1996 panelon 4 Cholesterol [Mass/Vol] 141 mg/dL Normal <200 [facility] Comment on above: Order Comment: Speci men Type: BLOOD SPECIMENOrdering Facility: [facility] Address: [address] [place] [address] Result Comment: <200 mg/dL, Desirable 200-239 mg/dL, Borderline high >239 mg/dL, High Performed By: #### 2 4323-8, 52851-8 ####[facility] [id number] [address] [place] Cholesterol in HDL [Mass/Vol] 45 mg/dL Normal >39 [facility] Comment on above: Order Comment: Speci men Type: BLOOD SPECIMENOrdering Facility: [facility] Address: [address] [place] [address] Result Comment: 40-5 9 mg/dL, Acceptable >59 mg/dL, High: Negative risk factor for coronary heart disease <40 mg/dL, Low: Positive risk factor for coronary heart disease Performed By: #### 2 4323-8, 45649-9 ####[facility] [id number] [address] STATES OF [facility] Cholesterol in LDL [Mass/Vol] 72 mg/dL Normal <100 [facility] Comment on above: Order Comment: Speci men Type: BLOOD SPECIMENOrdering Facility: [facility] Address: [address] [place] [address] Result Comment: <100 mg/dL, Optimal 100-129 mg/dL, Near optimal/above optimal 130-159 mg/dL, Borderline high 160-189 mg/dL, High >189 mg/dL, Very high Secondary prevention optimal LDL Cholesterol levels are recommended to be < 70 mg/dL Performed By: #### 2 4323-8, 49375-9 ####[facility] [id number] [place] [address] [place] Cholesterol in LDL/Cholesterol in HDL [Mass ratio] 1.60 {ratio} Normal <2.54 [facility] Comment on above: Order Comment: Kristian radha Type: BLOOD SPECIMENOrdering Facility: [facility] Address: [address] [place] [address] Result Comment: Refe rence: 1. National Cholesterol Education Program ATP III Guideline At-A-Glance Quick Desk Reference: National Heart, Lung, and Blood [place]. National Institutes of Health. 2001: NIH Publication No. 01-3305. 2. An International Atherosclerosis Society position paper: global recommendations for the management of dyslipidemia: executive summary, Atherosclerosis. 2014: 232(2):410-413. Performed By: #### 2 4323-8, 55558-4 ####[facility] [id number] [place] [address] [place] Cholesterol in VLDL [Mass/Vol] 24 mg/dL Normal <30 [facility] Comment on above: Order Comment: Kristian garcia Type: BLOOD SPECIMENOrdering Facility: [facility] Address: [address] [place] [address] Performed By: #### 2 4323-8, 12926-0 ####[facility] [id number] [address] [place] Cholesterol non HDL [Mass/Vol] 96 mg/dL Normal <130 [facility] Comment on above: Order Comment: Kaleyreggie garcia Type: BLOOD SPECIMENOrdering Facility: [facility] Address: [address] [place] [address] Result Comment: <130 mg/dL, Optimal 130-159 mg/dL, Near optimal/above optimal 160-189 mg/dL, Borderline high 190-219 mg/dL, High >219 mg/dL, Very high Secondary prevention optimal non HDL Cholesterol levels are recommended to be <100 mg/dL Performed By: #### 2 4323-8, 15918-7 ####[facility] [id number] [place] [address] [place] Cholesterol.total/Choles terol in HDL [Mass ratio] 3.13 {ratio} Normal <5.10 [facility] Comment on above: Order Comment: Speci men Type: BLOOD SPECIMENOrdering Facility: [facility] Address: [address] [place] [address] Performed By: #### 2 4323-8, 32043-8 ####[facility] [id number] [address] [place] FASTING TIME [address] [facility] Comment on above: Order Comment: Speci men Type: BLOOD SPECIMENOrdering Facility: [facility] Address: [address] [place] [address] Performed By: #### 2 4323-8, 19407-3 ####[facility] [id number] [address] [place] Triglyceride [Mass/Vol] 122 mg/dL Normal <150 [facility] Comment on above: Order Comment: Speci men Type: BLOOD SPECIMENOrdering Facility: [facility] Address: [address] [place] [address] Result Comment: <150 mg/dL, Normal 150-199 mg/dL, Borderline high 200-499 mg/dL, High >499 mg/dL, Very high Performed By: #### 2 4323-8, 97329-7 ####[facility] [id number] [place] [address] [place] CNPRea 04-05-2024 CNPN Telephone (FAMPWS) ZION [id number]) 1945 M Date Time Provider Department 04/05/24 ABE GILMORE During your visit today, we recorded the following information about you: Lexis Jackson RN 04/05/2024 11:25 AM Signed Pts called in asking if Pt had lab orders in. I let her know I didn't have it written down that her gave us permission to give her information from his chart. Called patient and no answer. Patients voicemail was full. Will need to call back later. Need to check to see if we are allowed to give his medical information about him, and let him know he has fasting lab work to be done before his 04/25/24 appointment. ROCIO Luis Lindsey, MA 04/06/2024 2:41 PM Addendum Spoke with patient. Informed he has fasting labs ordered. He did give verbal permission to be able to speak with his Martha regarding his medication information. Chart updated. Cassie Baez MA Allergies As of Date: 04/05/2024 (No Known Allergies) Date Reviewed: 02/03/2024 Reviewed by: Ashlee Pal MA - Fully Assessed Reason for Visit: Lab Orders [1138] Prescriptions as of 04/06/2024 - atorvastatin (LIPITOR) 40 mg tablet Take 1 tablet by mouth daily at bedtime. - doxazosin (CARDURA) 4 mg tablet Take 1 tablet by mouth once daily. - losartan (COZAAR) 50 mg tablet Take 1 tablet by mouth once daily. - venlafaxine ER (EFFEXOR XR) 150 mg 24 hr capsule Take 1 capsule by mouth once daily. - omeprazole (PRILOSEC) 20 mg capsule TAKE 2 CAPSULES BY MOUTH DAILY BEFORE BREAKFAST. - tamsulosin (FLOMAX) 0.4 mg Take 0.4 mg by mouth daily at bedtime. - tramadol HCl (TRAMADOL ORAL) Take 50 mg by mouth four times daily. - gabapentin (NEURONTIN) 100 mg capsule Take 100 mg by mouth daily at bedtime. - finasteride (PROSCAR) 5 mg tablet Take 1 tablet by mouth once daily. - aspirin, enteric coated (ASPIRIN, ENTERIC COATED) 81 mg EC tablet Take 1 tablet by mouth once daily. Problem List As Of Date 04/05/2024 Noted Resolved BPH w/o urinary obs/LUTS [N40.0] 07/10/2006 01/02/2011 Essential hypertension [I10] 07/10/2006 Adjustment Disorder with Depressed Mood [F43.21]07/10/2006 Primary osteoarthritis involving multiple joint*07/29/2007 Mixed Hyperlipidemia [E78.2] 07/21/2008 Heartburn [R12] 10/10/2008 04/04/2016 Dyspepsia and other specified disorders of func*10/10/2008 04/04/2016 Acute gastritis without mention of hemorrhage [*10/10/2008 05/19/2023 Personal history of colonic polyps [Z86.010] 10/10/2008 04/04/2016 Benign Neoplasm of Colon [D12.6] 10/10/2008 Routine physical examination [Z00.00] 11/14/2009 10/04/2015 Umbilical Hernia [K42.9] 11/14/2009 ED (erectile dysfunction) [N52.9] 11/14/2009 04/25/2021 Dysmetabolic syndrome [E88.810] 11/29/2010 Right shoulder pain [M25.511] 11/29/2010 09/15/2020 BPH with urinary obstruction [N40.1, N13.8] 01/02/2011 Elevated BP [NHB1788] 01/02/2011 10/23/2021 CAD (coronary artery disease) [I25.10] 01/02/2011 Renal calculi [N20.0] 10/23/2021 Kidney stones [N20.0] 01/25/2015 10/23/2021 BPH (benign prostatic hyperplasia) [N40.0] 01/25/2015 10/23/2021 Left flank pain [R10.9] 01/25/2015 04/04/2016 Elevated PSA [R97.20] 01/25/2015 04/25/2021 Recurrent kidney stones [N20.0] 01/25/2015 Other male erectile dysfunction [N52.8] 03/28/2015 Urinary retention due to benign prostatic hyper*03/28/2015 Erectile dysfunction [N52.9] 04/04/2015 04/25/2021 GERD (gastroesophageal reflux disease) [K21.9] JOSE (obstructive sleep apnea) [G47.33] 09/23/2018 Pneumonia of right lower lobe due to infectious* 9 01/17/2019 Obesity, Class I, BMI 30-34.9 [E66.9] 01/17/2019 Traumatic rectus hematoma [S30.1XXA] 06/23/2019 10/23/2021 Fall from ladder [W11.XXXA] 06/23/2019 06/23/2019 Closed head injury [S09.90XA] 06/23/2019 04/25/2021 Syncope [R55] 06/23/2019 04/25/2021 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 CBC W/Diff, Automatedon 07- Absolute Lymph 1.20 X10 3/uL Normal 0.83-4.51 [facility] Comment on above: Performed By: #### L 100.0100, L501.6710, L500.4050, L101.9900 #### [facility] [address] [place], [address] Absolute Neut 3.2 X10 3/uL Normal 2.0-7.7 [facility] Comment on above: Performed By: #### L 100.0100, L501.6710, L500.4050, L101.9900 #### [facility] [address] [place], [address] Basophils/100 WBC (Bld) 1.0 % Normal 0-1 [facility] Comment on above: Performed By: #### L 100.0100, L501.6710, L500.4050, L101.9900 #### [facility] [address] [place], [address] Eosinophils/100 WBC (Bld) 5.6 % High 0-5 [facility] Comment on above: Performed By: #### L 100.0100, L501.6710, L500.4050, L101.9900 #### [facility] [address] [place], [address] Erythrocyte distribution width (RBC) [Ratio] 12.6 % Normal 11.6-14.6 [facility] Comment on above: Performed By: #### L 100.0100, L501.6710, L500.4050, L101.9900 #### [facility] [address] [place], [address] Hematocrit (Bld) [Volume fraction] 39.0 % Low 40-54 [facility] Comment on above: Performed By: #### L 100.0100, L501.6710, L500.4050, L101.9900 #### [facility] [address] [place], [address] Hemoglobin (Bld) [Mass/Vol] 12.7 g/dL Low 13.0-16.5 [facility] Comment on above: Performed By: #### L 100.0100, L501.6710, L500.4050, L101.9900 #### [facility] [address] [place], [address] IG% 0.200 Normal 0.0-0.9 [facility] Comment on above: Result Comment: IG% - Immature Granulocytes (promyelocytes, myelocytes and metamyelocytes) > 1% indicates that a LEFT SHIFT is Present. Performed By: #### L 100.0100, L501.6710, L500.4050, L101.9900 #### [facility] [address] [place], [address] Lymphocytes/100 WBC (Bld) 23.9 % Normal 19-41 [facility] Comment on above: Performed By: #### L 100.0100, L501.6710, L500.4050, L101.9900 #### [facility] [address] [place], [address] MCH (RBC) [Entitic mass] 29.7 pg Normal 27.0-32.0 [facility] Comment on above: Performed By: #### L 100.0100, L501.6710, L500.4050, L101.9900 #### [facility] [address] [place], [address] MCHC (RBC) [Mass/Vol] 32.6 g/dL Normal 32-36 [facility] Comment on above: Performed By: #### L 100.0100, L501.6710, L500.4050, L101.9900 #### [facility] [address] [place], [address] MCV (RBC) [Entitic vol] 91.1 fL Normal 80-94 [facility] Comment on above: Performed By: #### L 100.0100, L501.6710, L500.4050, L101.9900 #### [facility] [address] [place], [address] Monocytes/100 WBC (Bld) 6.6 % Normal 0-10 [facility] Comment on above: Performed By: #### L 100.0100, L501.6710, L500.4050, L101.9900 #### [facility] [address] [place], [address] Neutrophils/100 WBC (Bld) 62.7 % Normal 47-70 [facility] Comment on above: Performed By: #### L 100.0100, L501.6710, L500.4050, L101.9900 #### [facility] [address] [place], [address] Nucleated RBC (Bld) [#/Vol] 0 10*3/uL Normal 0-5 [facility] Comment on above: Performed By: #### L 100.0100, L501.6710, L500.4050, L101.9900 #### [facility] [address] [place], [address] Platelet mean volume (Bld) [Entitic vol] 10.1 fL Normal 6.2-12.0 [facility] Comment on above: Performed By: #### L 100.0100, L501.6710, L500.4050, L101.9900 #### [facility] [address] [place], [address] Platelets (Bld) [#/Vol] 171 10*3/uL Normal 150-450 [facility] Comment on above: Performed By: #### L 100.0100, L501.6710, L500.4050, L101.9900 #### [facility] [address] [place], [address] RBC (Bld) [#/Vol] 4.28 10*6/uL Low 4.6-6.2 [facility] Comment on above: Performed By: #### L 100.0100, L501.6710, L500.4050, L101.9900 #### [facility] [address] [place], [address] RDW SD 41.2 fl Normal 35.1-43.9 [facility] Comment on above: Performed By: #### L 100.0100, L501.6710, L500.4050, L101.9900 #### [facility] [address] [place], [address] WBC (Bld) [#/Vol] 5.0 10*3/uL Normal 4.4-11.0 [facility] Comment on above: Performed By: #### L 100.0100, L501.6710, L500.4050, L101.9900 #### [facility] [address] [place], [address] Comprehensive Metabolic Prof [facility] 02-04-2024 Albumin [Mass/Vol] 3.8 g/dL Normal 3.2-5.0 [facility] Comment on above: Performed By: #### L 100.0100, L501.6710, L500.4050, L101.9900 #### [facility] [address] [place], [address] Albumin/Globulin [Mass ratio] 1.2 {ratio} Normal 0.9-2.4 [facility] Comment on above: Performed By: #### L 100.0100, L501.6710, L500.4050, L101.9900 #### [facility] [address] [place], [address] ALK P 69 U/L Normal 45-117 [facility] Comment on above: Performed By: #### L 100.0100, L501.6710, L500.4050, L101.9900 #### [facility] [address] [place], [address] ALT [Catalytic activity/Vol] 32 U/L Normal 16-61 [facility] Comment on above: Performed By: #### L 100.0100, L501.6710, L500.4050, L101.9900 #### [facility] [address] [place], [address] AST [Catalytic activity/Vol] 26 U/L Normal 15-37 [facility] Comment on above: Performed By: #### L 100.0100, L501.6710, L500.4050, L101.9900 #### [facility] [address] [place], [address] Bilirubin [Mass/Vol] 0.50 mg/dL Normal 0.20-1.00 [facility] Comment on above: Result Comment: For patients on eltrombopag therapy, use of Dimension [place] TBIL is not recommended. Performed By: #### L 100.0100, L501.6710, L500.4050, L101.9900 #### [facility] [address] [place], [address] BUN/CRE 25.9 RATIO High 10-20 [facility] Comment on above: Performed By: #### L 100.0100, L501.6710, L500.4050, L101.9900 #### [facility] [address] [place], [address] CA,Total 8.9 mg/dL Normal 8.5-10.1 [facility] Comment on above: Performed By: #### L 100.0100, L501.6710, L500.4050, L101.9900 #### [facility] [address] [place], [address] Chloride [Moles/Vol] 107 mmol/L Normal 98-107 [facility] Comment on above: Performed By: #### L 100.0100, L501.6710, L500.4050, L101.9900 #### [facility] [address] [place], [address] CO2 [Moles/Vol] 25.0 mmol/L Normal 21.0-32.0 [facility] Comment on above: Performed By: #### L 100.0100, L501.6710, L500.4050, L101.9900 #### [facility] [address] [place], [address] Creatinine [Mass/Vol] 0.89 mg/dL Normal 0.70-1.30 [facility] Comment on above: Result Comment: The validity of the calculated GFR GFRAA in patients over 70 years has not been determined. Clinical correlation is essential. Performed By: #### L 100.0100, L501.6710, L500.4050, L101.9900 #### [facility] [address] [place], [address] EST GFR - AA 106 mL/min Normal >60 [facility] Comment on above: Result Comment: Afri can [place] GFR Calc Performed By: #### L 100.0100, L501.6710, L500.4050, L101.9900 #### [facility] [address] [place], [address] GAP 5 Normal 5-15 [facility] Comment on above: Performed By: #### L 100.0100, L501.6710, L500.4050, L101.9900 #### [facility] [address] [place], [address] GFR/1.73 sq M.predicted among non-blacks MDRD (S/P/Bld) [Vol rate/Area] 88 mL/min/{1.73_m2} Normal >60 [facility] Comment on above: Result Comment: Non- GFR Calc Performed By: #### L 100.0100, L501.6710, L500.4050, L101.9900 #### [facility] [address] [place], [address] Globulin (S) [Mass/Vol] 3.3 g/dL Normal 2.2-4.2 [facility] Comment on above: Performed By: #### L 100.0100, L501.6710, L500.4050, L101.9900 #### [facility] [address] [place], [address] Glucose [Mass/Vol] 119 mg/dL High 74-106 [facility] Comment on above: Result Comment: Fast ing Glucose result from 100 to 125 mg/dL suggests IMPAIRED HOMEOSTASIS per A.D.A. criteria. Performed By: #### L 100.0100, L501.6710, L500.4050, L101.9900 #### [facility] [address] [place], [address] Potassium [Moles/Vol] 4.3 mmol/L Normal 3.5-5.1 [facility] Comment on above: Performed By: #### L 100.0100, L501.6710, L500.4050, L101.9900 #### [facility] [address] [place], [address] Sodium [Moles/Vol] 137 mmol/L Normal 136-145 [facility] Comment on above: Performed By: #### L 100.0100, L501.6710, L500.4050, L101.9900 #### [facility] [address] [place], [address] T PROT 7.1 g/dL Normal 6.4-8.2 [facility] Comment on above: Performed By: #### L 100.0100, L501.6710, L500.4050, L101.9900 #### [facility] [address] [place], [address] Urea nitrogen [Mass/Vol] 23 mg/dL High 7-18 [facility] Comment on above: Performed By: #### L 100.0100, L501.6710, L500.4050, L101.9900 #### [facility] [address] 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 He has washed it out in the shower and wrapped it. MEDICATIONS: atorvastatin (LIPITOR) 40 mg tablet Take 1 tablet by mouth daily at bedtime. doxazosin (CARDURA) 4 mg tablet Take 1 tablet by mouth once daily. losartan (COZAAR) 50 mg tablet Take 1 tablet by mouth once daily. venlafaxine ER (EFFEXOR XR) 150 mg 24 hr capsule Take 1 capsule by mouth once daily. omeprazole (PRILOSEC) 20 mg capsule TAKE 2 CAPSULES BY MOUTH DAILY BEFORE BREAKFAST. tamsulosin (FLOMAX) 0.4 mg Take 0.4 mg by mouth daily at bedtime. tramadol HCl (TRAMADOL ORAL) Take 50 mg by mouth four times daily. gabapentin (NEURONTIN) 100 mg capsule Take 100 mg by mouth daily at bedtime. finasteride (PROSCAR) 5 mg tablet Take 1 tablet by mouth once daily. aspirin, enteric coated (ASPIRIN, ENTERIC COATED) 81 mg EC tablet Take 1 tablet by mouth once daily. ALLERGIES: ALLERGIES No Known Allergies VITALS: BP 110/64 Pulse 85 Temp 36 ?C (96.8 ?F) Resp 21 Wt 100.4 kg (221 lb 5.5 oz) SpO2 98% BMI 31.76 kg/m? PE: Pleasant, in no acute distress. Knee: right. 6cm full thickness oblique laceration medial knee. Procedure: Anesthesia: none. Site cleansed with hibiclens and water on gauze. Wound explored and does not extend into the joint capsule or muscle layer. [place] 4 zip closure device used to approximate the wound edges. Hemostasis achieved with pressure bandage. Wound dressed with non-adherent pad and COBAN. ASSESSMENT/PLAN: 1. Laceration of right knee, initial encounter - ICD9: 891.0, ICD10: S81.011A Keep wound covered and dry for 48 hours. The dressing may be changed as needed-avoid using gauze or ointment/cream. After 48 hours, the wound may be exposed to limited water but not submerged. Apply continuous pressure for 10 minutes if bleeding occurs. Seek re-evaluation for sign of infection such as spreading redness, warmth, pus-like discharge, increasing pain, or fever. Patient would like tetanus vaccine updated here. Declines printed prescription to take to the pharmacy for Medicare insurance coverage. Return for closure device removal in 10-14 days. Lm Urbina MD Allergies As of Date: 02/03/2024 (No Known Allergies) Date Reviewed: 02/03/2024 Reviewed by: Ashlee Pal MA - Fully Assessed Reason for Visit: Laceration [1747] Cmt: Cut on right knee x 2 hrs Primary Visit Diagnosis:Laceration of right knee, initial encounter [S81.011A] Order(s):TDAP VACCINE, AGE 7+ YR (ADACEL, BOOSTRIX) [[id number]] Order #: [id number] Prescriptions as of 02/03/2024 - atorvastatin (LIPITOR) 40 mg tablet Take 1 tablet by mouth daily at bedtime. - doxazosin (CARDURA) 4 mg tablet Take 1 tablet by mouth once daily. - losartan (COZAAR) 50 mg tablet Take 1 tablet by mouth once daily. - venlafaxine ER (EFFEXOR XR) 150 mg 24 hr capsule Take 1 capsule by mouth once daily. - omeprazole (PRILOSEC) 20 mg capsule TAKE 2 CAPSULES BY MOUTH DAILY BEFORE BREAKFAST. - tamsulosin (FLOMAX) 0.4 mg Take 0.4 mg by mouth daily at bedtime. - tramadol HCl (TRAMADOL ORAL) Take 50 mg by mouth four times daily. - gabapentin (NEURONTIN) 100 mg capsule Take 100 mg by mouth daily at bedtime. - finasteride (PROSCAR) 5 mg tablet Take 1 tablet by mouth once daily. - aspirin, enteric coated (ASPIRIN, ENTERIC COATED) 81 mg EC tablet Take 1 tablet by mouth once daily. Problem List As Of Date 02/03/2024 Noted Resolved BPH w/o urinary obs/LUTS [N40.0] 07/10/2006 01/02/2011 Essential hypertension [I10] 07/10/2006 Adjustment Disorder with Depressed Mood [F43.21]07/10/2006 Primary osteoarthritis involving multiple joint*07/29/2007 Mixed Hyperlipidemia [E78.2] 07/21/2008 Heartburn [R12] 10/10/2008 04/04/2016 Dyspepsia and other specified disorders of func*10/10/2008 04/04/2016 Acute gastritis without mention of hemorrhage [*10/10/2008 05/19/2023 Personal history of colonic polyps [Z86.010] 10/10/2008 04/04/2016 Benign Neoplasm of Colon [D12.6] 10/10/2008 Routine physical examination [Z00.00] 11/14/2009 10/04/2015 Umbilical Hernia [K42.9] 11/14/2009 ED (erectile dysfunction) [N52.9] 11/14/2009 04/25/2021 Dysmetabolic syndrome [E88.810] 11/29/2010 Right shoulder pain [M25.511] 11/29/2010 09/15/2020 BPH with urinary obstruction [N40.1, N13.8] 01/02/2011 Elevated BP [OJQ4609] 01/02/2011 10/23/2021 CAD (coronary artery disease) [I25.10] (more content not included)... Normal [facility] CNOVon 12-31-2023 [facility] Office Visit (AHMET) ZION MARSH ([id number]) 1945 M Date Time Provider Department 12/31/23 11:00 AM GERSON YOUNG During your visit today, we recorded the following information about you: Pulse Blood pressure Weight Height 55/minute 108/48 101 kg 1.778 m Gerson Young DO 12/31/2023 11:34 AM Signed [facility] V[facility] [address] Department of Cardiovascular Medicine SECTION OF REGIONAL CARDIOLOGY ARON: 06/05/2022 HPI: Zion Marsh is a 78 year old male with history of hypertension, hyperlipidemia, moderate CAD, obstructive sleep apnea on sleep apnea and diabetes mellitus who was lost to follow up and is here today for follow up of dizziness/lightheade dness, and syncope/near syncope. The patient is involved in sporadic irregular exercise Patient is currently asymptomatic. Patient denies SOB, chest pain, dizziness, lightheadedness, palpitations, lower extremity edema, PND, orthopnea, presyncope, syncope or claudication symptoms. Prior Hx: 11/12/20 He was last seen for preoperative cardiovascular examination pending carpal tunnel surgery and this went well. He had an episode of syncope while on a ladder putting up lights 06/23/19. It was around noon and he was reaching up and feels he passed out. He fell and had some head trauma then went to ED. He had an unremarkable echo other than mild aortic root dilation at 4 cm. He has not had any issues since then. He had a LHC at [facility] due to abnormal stress echo for ischemia per Dr. Peña. The LHC showed moderate CAD. 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 Coronary artery disease Elevated BP 01/02/2011 Esophagitis, unspecified GENERAL OSTEOARTHROSIS 07/29/2007 GERD (gastroesophageal reflux disease) Heartburn gastritis Hypertension Impaired fasting glucose WI, old silent on EKG Mixed hyperlipidemia 07/21/2008 Personal history of colonic polyps Renal calculi Snoring Syncope 06/23/2019 Umbilical hernia 11/14/2009 PAST SURGICAL HISTORY Procedure Laterality Date APPENDECTOMY ARTHRP ACETBLR/PROX FEM PROSTC AGRFT/ALGRFT 07/02/09 right Hip replacement, total ARTHRP ACETBLR/PROX FEM PROSTC AGRFT/ALGRFT 08/27/09 left Hip replacement, total CARDIAC CATH 12/30/10 no stents COLONOSCOPY FLX DX W/COLLJ SPEC WHEN PFRMD 11-23-13 diverticulosis, repeat in 5 years COLONOSCOPY FLX DX W/COLLJ SPEC WHEN PFRMD 12/06/2018 Colonoscopy COLONOSCOPY W/BIOPSY SINGLE/MULTIPLE ?, 10/10/08 EGD TRANSORAL BIOPSY SINGLE/MULTIPLE 10/10/08 ESOPHAGOGASTRODUODEN OSCOPY TRANSORAL DIAGNOSTIC 01/14/16 EGD INGUINAL HERNIA REPAIR HX right PAST SURGICAL HISTORY OF basket retrieval kidney stones RECONSTRUCTION ROTATOR CUFF AVULSION CHRONIC 04/2011 right-workers comp ROTATOR CUFF REPAIR 2011 left, [place] SALIVARY SURG UNLISTED PROC ? 1970s ? Mass removed from right cheek FAMILY HISTORY Problem Relation Age of Onset Heart Mother [place] Heart Brother Cancer Brother bone None Father unknown Heart Brother 45 [place] SOCIAL HISTORY Social History Tobacco Use Smoking status: Never Smokeless tobacco: Never Substance Use Topics Alcohol use: No Drug use: No ALLERGIES: Patient has no known allergies. CURRENT MEDICATIONS: Current Outpatient Medications Medication Sig atorvastatin (LIPITOR) 40 mg tablet Take 1 tablet by mouth daily at bedtime. doxazosin (CARDURA) 4 mg tablet Take 1 tablet by mouth once daily. losartan (COZAAR) 50 mg tablet Take 1 tablet by mouth once daily. venlafaxine ER (EFFEXOR XR) 150 mg 24 hr capsule Take 1 capsule by mouth once daily. omeprazole (PRILOSEC) 20 mg capsule TAKE 2 CAPSULES BY MOUTH DAILY BEFORE BREAKFAST. tamsulosin (FLOMAX) 0.4 mg Take 0.4 mg by mouth daily at bedtime. tramadol HCl (TRAMADOL ORAL) Take 50 mg by mouth four times daily. gabapentin (NEURONTIN) 100 mg capsule Take 100 mg by mouth daily at bedtime. finasteride (PROSCAR) 5 mg tablet Take 1 tablet by mouth once daily. aspirin, enteric coated (ASPIRIN, ENTERIC COATED) 81 mg EC tablet Take 1 tablet by mouth once daily. No current facility-administere d medications for this visit. ROS: Card: See present history. Pulm: Negative for cough, hemoptysis, wheezing, COPD, dyspnea or shortness of breath Gastro: No nausea, vomiting, or diarrhea GenUr: No history of dysuria, frequency or incontinence Endo: Negative for cold or heat intolerance, polyuria or polydipsia. Neuro: no focal weakness, focal sensory loss, headache, visual changes, seizure activity, ataxia, speech/language loss. Musculoskeletal: Negative for joint or muscle pain, back pain, or swelling. Infect: no fevers, chills, rigors or night sweats. Skin: Negative for lesions, rash, and itching. (more content not included)... Normal [facility] No Panel InformationOrdered By: Fartun Rubin on 10-20-2023 Prostate Specific Antigen Screen 1.48 ng/mL 0.00-4.00 [facility] Comment on above: This test was perfor med using the TPSA assay method for theTunespeak chemistry system. Values obtained with differentassay methods cannot be used interchangably.When changing PSA assays in the course of monitoring apatient, additional sequential testing should be carriedout to confirm baseline values. Absolute lymphocyte countOrd ered By: Candida Jain on 02-09-2023 Lymphocytes Auto (Unsp spec) [#/Vol] 1.24 10*3/uL 0.83-4.51 [facility] Basophil percentageOrdered B y: Candida Jain on 02-09-2023 Basophils/100 WBC (Bld) 0.3 % 0-1 [facility] Bilirubin [Mass/Vol] 0.60 mg/dL 0.20-1.00 [facility] Comment on above: For patients on eltr ombopag therapy, use of Dimension [place] TBIL is not recommended. Chloride [Moles/Vol] 105 mmol/L 98-107 [facility] Eosinophils/100 WBC (Bld) 0.6 % 0-5 [facility] Glucose [Mass/Vol] 147 mg/dL 74-106 [facility] Comment on above: Fasting Glucose resu lt greater than or equal to 126 mg/dL suggests DIABETES MELLITUS per A.D.A. criteria. Neutrophils (Bld) [#/Vol] 7.2 10*3/uL 2.0-7.7 [facility] Neutrophils/100 WBC (Bld) 81.5 % 47-70 [facility] Potassium [Moles/Vol] 5.0 mmol/L 3.5-5.1 [facility] Protein [Mass/Vol] 7.5 g/dL 6.4-8.2 [facility] Sodium [Moles/Vol] 138 mmol/L 136-145 [facility] WBC (Bld) [#/Vol] 8.8 10*3/uL 4.4-11.0 [facility] Blood erythrocytes count (nu mber/volume)Ordered By: Candida Jain on 02-09-2023 RBC (Bld) [#/Vol] 4.68 10*6/uL 4.6-6.2 [facility] Blood hemoglobin measurement (mass/volume)Ordered By: Candida Jain on 02-09-2023 Hemoglobin (Bld) [Mass/Vol] 14.3 g/dL 13.0-16.5 [facility] Blood lymphocytes/100 leukoc ytesOrdered By: Candida Jain on 02-09-2023 Lymphocytes/100 WBC (Bld) 14.1 % 19-41 [facility] Blood monocytes/100 leukocyt esOrdered By: Candida Jain on 02-09-2023 Monocytes/100 WBC (Bld) 3.0 % 0-10 [facility] Blood platelet mean volumeOr dered By: Candida Jain on 02-09-2023 Platelet mean volume (Bld) [Entitic vol] 10.1 fL 6.2-12.0 [facility] Determination of erythrocyte mean corpuscular volume (MCV)Ordered By: Candidaroe Jain on 02-09-2023 MCV (RBC) [Entitic vol] 94.7 fL 80-94 [facility] Hematocrit Auto (Bld) [Volum e fraction]Ordered By: Candidaroe Jain on 02-09-2023 Hematocrit (Bld) [Volume fraction] 44.3 % 40-54 [facility] - Chemistry and C hemistry - challengeOrdered By: [facility] Susy on 02-09-2023 ALP [Catalytic activity/Vol] 74 U/L 45-117 [facility] ALT [Catalytic activity/Vol] 31 U/L 16-61 [facility] CO2 [Moles/Vol] 29.0 mmol/L 21.0-32.0 [facility] Globulin (S) [Mass/Vol] 3.6 g/dL 2.2-4.2 [facility] Urea nitrogen/Creatinine [Mass ratio] 19.7 mg/mg 10-20 [facility] - Hematology and Cell countsOrdered By: Candidaroe Jain on 02-09-2023 Erythrocyte distribution width (RBC) [Entitic vol] 44.6 fL 35.1-43.9 [facility] Erythrocyte distribution width (RBC) [Ratio] 13.0 % 11.6-14.6 [facility] Immature granulocytes/100 WBC (Bld) 0.500 % 0.0-0.9 [facility] Comment on above: IG% - Immature Granu locytes (promyelocytes, myelocytes and metamyelocytes) > 1% indicates that a LEFT SHIFT is Present. MCH (RBC) [Entitic mass] 30.6 pg 27.0-32.0 [facility] Nucleated RBC/100 WBC (Bld) [Ratio] 0 % 0-5 [facility] MCHC Auto (RBC) [Mass/Vol]Or dered By: Candida Jain on 02-09-2023 MCHC (RBC) [Mass/Vol] 32.3 g/dL 32-36 [facility] No Panel InformationOrdered By: Candida Jain on 02-09-2023 Estimated GFR (MDRD) Amer 74 mL/min >60 [facility] Comment on above: GFR Calc Estimated GFR (MDRD) Non-Af Amer 61 mL/min >60 [facility] Comment on above: Non- GFR Calc Platelets bldOrdered By: Patricia Jain on 02-09-2023 Platelets (Bld) [#/Vol] 173 10*3/uL 150-450 [facility] Serum or plasma albumin ibrahima urement (mass/volume)Ordered By: Candida Jain on 02-09-2023 Albumin [Mass/Vol] 3.9 g/dL 3.2-5.0 [facility] Serum or plasma albumin/glob ulin mass ratioOrdered By: Candida Jain on 02-09-2023 Albumin/Globulin [Mass ratio] 1.1 {ratio} 0.9-2.4 [facility] Serum or plasma calcium ibrahima urement (mass/volume)Ordered By: Candida Jain on 02-09-2023 Calcium [Mass/Vol] 9.3 mg/dL 8.5-10.1 [facility] Serum or plasma creatinine m easurement (mass/volume)Ordered By: Candida Jain on 02-09-2023 Creatinine [Mass/Vol] 1.22 mg/dL 0.70-1.30 [facility] Comment on above: The validity of the calculated GFR & GFRAA in patients over 70 years has not been determined. Clinical correlation is essential. Serum or plasma urea nitroge n measurement (mass/volume)Ordered By: Candida Jain on 02-09-2023 Urea nitrogen [Mass/Vol] 24 mg/dL 7-18 [facility] Thin prep Papanicolaou smear with manual screeningOrdered By: Candida Jain on 02-09-2023 Thin prep Papanicolaou smear with manual screening 24 U/L 15-37 [facility] Thin prep Papanicolaou smear with manual screening 4 5-15 [facility] No Panel InformationOrdered By: NIKO Mejia on 10-13-2022 Prostate Specific Antigen Screen 2.04 ng/mL 0.00-4.00 [facility] Comment on above: This test was perfor med using the TPSA assay method for theTunespeak chemistry system. Values obtained with differentassay methods cannot be used interchangably.When changing PSA assays in the course of monitoring apatient, additional sequential testing should be carriedout to confirm baseline values. Absolute lymphocyte counton 05-30-2022 Lymphocytes Auto (Unsp spec) [#/Vol] 1.17 10*3/uL 0.83-4.51 [facility] Work Phone: [phone] Basophil percentageon 2021 Basophils/100 WBC (Bld) 0.9 % 0-1 [facility] Work Phone: [phone] Bilirubin [Mass/Vol] 0.60 mg/dL 0.20-1.00 [facility] Work Phone: [phone] Comment on above: For patients on eltr ombopag therapy, use of [place] TBIL is not recommended. Chloride [Moles/Vol] 105 mmol/L 98-107 [facility] Work Phone: [phone] Eosinophils/100 WBC (Bld) 3.9 % 0-5 [facility] Work Phone: [phone] Glucose [Mass/Vol] 110 mg/dL 74-106 [facility] Work Phone: Comment on above: Fasting Glucose resu lt from 100 to 125 mg/dL suggests IMPAIRED HOMEOSTASIS per A.D.A. criteria. Neutrophils (Bld) [#/Vol] 2.9 10*3/uL 2.0-7.7 [facility] Work Phone: [phone] Neutrophils/100 WBC (Bld) 62.8 % 47-70 [facility] Work Phone: [phone] Potassium [Moles/Vol] 4.2 mmol/L 3.5-5.1 [facility] Work Phone: Protein [Mass/Vol] 7.5 g/dL 6.4-8.2 [facility] Work Phone: Sodium [Moles/Vol] 139 mmol/L 136-145 [facility] Work Phone: WBC (Bld) [#/Vol] 4.7 10*3/uL 4.4-11.0 [facility] Work Phone: Blood erythrocytes count (nu mber/volume)on 05-30-2022 RBC (Bld) [#/Vol] 4.87 10*6/uL 4.6-6.2 [facility] Work Phone: Blood hemoglobin measurement (mass/volume)on 05-30-2022 Hemoglobin (Bld) [Mass/Vol] 12.6 g/dL 13.0-16.5 [facility] Work Phone: Blood lymphocytes/100 leukoc yteson 05-30-2022 Lymphocytes/100 WBC (Bld) 25.1 % 19-41 [facility] Work Phone: Blood monocytes/100 leukocyt eson 05-30-2022 Monocytes/100 WBC (Bld) 7.1 % 0-10 [facility] Work Phone: Blood platelet mean volumeon 05-30-2022 Platelet mean volume (Bld) [Entitic vol] 10.5 fL 6.2-12.0 [facility] Work Phone: Determination of erythrocyte mean corpuscular volume (MCV)on 05-30-2022 MCV (RBC) [Entitic vol] 84.0 fL 80-94 [facility] Work Phone: Hematocrit Auto (Bld) [Volum e fraction]on 05-30-2022 Hematocrit (Bld) [Volume fraction] 40.9 % 40-54 [facility] Work Phone: Iron measurement (mass/mass) on 05-30-2022 Iron (Unsp spec) [Mass/Mass] 85 ug/dL 65-175 [facility] Work Phone: Laboratory - Chemistry and C hemistry - challengeon 05-30-2022 ALP [Catalytic activity/Vol] 78 U/L 45-117 [facility] Work Phone: [phone] ALT [Catalytic activity/Vol] 34 U/L 16-61 [facility] Work Phone: [phone] CO2 [Moles/Vol] 27.0 mmol/L 21.0-32.0 [facility] Work Phone: [phone] Globulin (S) [Mass/Vol] 3.6 g/dL 2.2-4.2 [facility] Work Phone: [phone] Urea nitrogen/Creatinine [Mass ratio] 17.0 mg/mg 10-20 [facility] Work Phone: Laboratory - Hematology and Cell countson 05-30-2022 Erythrocyte distribution width (RBC) [Entitic vol] 59.8 fL 35.1-43.9 [facility] Work Phone: [phone] Erythrocyte distribution width (RBC) [Ratio] 19.9 % 11.6-14.6 [facility] Work Phone: [phone] Immature granulocytes/100 WBC (Bld) 0.200 % 0.0-0.9 [facility] Work Phone: Comment on above: IG% - Immature Granu locytes (promyelocytes, myelocytes and metamyelocytes) > 1% indicates that a LEFT SHIFT is Present. MCH (RBC) [Entitic mass] 25.9 pg 27.0-32.0 [facility] Work Phone: [phone] Nucleated RBC/100 WBC (Bld) [Ratio] 0 % 0-5 [facility] Work Phone: [phone] MCHC Auto (RBC) [Mass/Vol]on 05-30-2022 MCHC (RBC) [Mass/Vol] 30.8 g/dL 32-36 [facility] Work Phone: No Panel Informationon 05-30 Estimated GFR (MDRD) Amer 100 mL/min >60 [facility] Work Phone: Comment on above: GFR Calc Estimated GFR (MDRD) Non-Af Amer 82 mL/min >60 [facility] Work Phone: Comment on above: Non- GFR Calc Total Iron Binding Capacity 354 ug/dL 250-450 [facility] Work Phone: Platelets bldon 05-30-2022 Platelets (Bld) [#/Vol] 184 10*3/uL 150-450 [facility] Work Phone: Serum or plasma albumin ibrahima urement (mass/volume)on 05-30-2022 Albumin [Mass/Vol] 3.9 g/dL 3.2-5.0 [facility] Work Phone: Serum or plasma albumin/glob ulin mass ratioon 05-30-2022 Albumin/Globulin [Mass ratio] 1.1 {ratio} 0.9-2.4 [facility] Work Phone: Serum or plasma calcium ibrahima urement (mass/volume)on 05-30-2022 Calcium [Mass/Vol] 9.2 mg/dL 8.5-10.1 [facility] Work Phone: Serum or plasma creatinine m easurement (mass/volume)on 05-30-2022 Creatinine [Mass/Vol] 0.94 mg/dL 0.70-1.30 [facility] Work Phone: Comment on above: The validity of the calculated GFR & GFRAA in patients over 70 years has not been determined. Clinical correlation is essential. Serum or plasma ferritin susan surement (mass/volume)on 05-30-2022 Ferritin [Mass/Vol] 23 ng/mL 26-388 [facility] Work Phone: Serum or plasma iron saturat ion measurement (mass fraction)on 05-30-2022 Iron saturation [Mass fraction] 24.0 % 15.0-55.0 [facility] Work Phone: Serum or plasma urea nitroge n measurement (mass/volume)on 05-30-2022 Urea nitrogen [Mass/Vol] 16 mg/dL 7-18 [facility] Work Phone: Thin prep Papanicolaou smear with manual screeningon 05-30-2022 Thin prep Papanicolaou smear with manual screening 30 U/L 15-37 [facility] Work Phone: Thin prep Papanicolaou smear with manual screening 7 5-15 [facility] Work Phone: Absolute lymphocyte counton 03-19-2022 Lymphocytes Auto (Unsp spec) [#/Vol] 1.54 10*3/uL 0.83-4.51 [facility] Work Phone: Basophil percentageon 2021 Basophils/100 WBC (Bld) 0.8 % 0-1 [facility] Work Phone: Bilirubin [Mass/Vol] 0.50 mg/dL 0.20-1.00 [facility] Work Phone: Comment on above: For patients on eltr ombopag therapy, use of [place] TBIL is not recommended. Chloride [Moles/Vol] 105 mmol/L 98-107 [facility] Work Phone: Eosinophils/100 WBC (Bld) 5.0 % 0-5 [facility] Work Phone: Glucose [Mass/Vol] 130 mg/dL 74-106 [facility] Work Phone: Comment on above: Fasting Glucose resu lt greater than or equal to 126 mg/dL suggests DIABETES MELLITUS per A.D.A. criteria. Neutrophils (Bld) [#/Vol] 2.6 10*3/uL 2.0-7.7 [facility] Work Phone: Neutrophils/100 WBC (Bld) 53.4 % 47-70 [facility] Work Phone: Potassium [Moles/Vol] 4.0 mmol/L 3.5-5.1 [facility] Work Phone: Protein [Mass/Vol] 7.1 g/dL 6.4-8.2 [facility] Work Phone: Sodium [Moles/Vol] 137 mmol/L 136-145 [facility] Work Phone: WBC (Bld) [#/Vol] 4.8 10*3/uL 4.4-11.0 [facility] Work Phone: Blood erythrocytes count (nu mber/volume)on 03-19-2022 RBC (Bld) [#/Vol] 4.32 10*6/uL 4.6-6.2 [facility] Work Phone: Blood hemoglobin measurement (mass/volume)on 03-19-2022 Hemoglobin (Bld) [Mass/Vol] 10.7 g/dL 13.0-16.5 [facility] Work Phone: Blood lymphocytes/100 leukoc yteson 03-19-2022 Lymphocytes/100 WBC (Bld) 32.2 % 19-41 [facility] Work Phone: Blood monocytes/100 leukocyt eson 03-19-2022 Monocytes/100 WBC (Bld) 8.4 % 0-10 [facility] Work Phone: Blood platelet mean volumeon 03-19-2022 Platelet mean volume (Bld) [Entitic vol] 11.0 fL 6.2-12.0 [facility] Work Phone: Determination of erythrocyte mean corpuscular volume (MCV)on 03-19-2022 MCV (RBC) [Entitic vol] 81.3 fL 80-94 [facility] Work Phone: Hematocrit Auto (Bld) [Volum e fraction]on 03-19-2022 Hematocrit (Bld) [Volume fraction] 35.1 % 40-54 [facility] Work Phone: Laboratory - Chemistry and C hemistry - challengeon 03-19-2022 ALP [Catalytic activity/Vol] 93 U/L 45-117 [facility] Work Phone: ALT [Catalytic activity/Vol] 29 U/L 16-61 [facility] Work Phone: CO2 [Moles/Vol] 26.0 mmol/L 21.0-32.0 [facility] Work Phone: Globulin (S) [Mass/Vol] 3.5 g/dL 2.2-4.2 [facility] Work Phone: Urea nitrogen/Creatinine [Mass ratio] 18.8 mg/mg 10-20 [facility] Work Phone: Laboratory - Hematology and Cell countson 03-19-2022 Erythrocyte distribution width (RBC) [Entitic vol] 41.5 fL 35.1-43.9 [facility] Work Phone: Erythrocyte distribution width (RBC) [Ratio] 14.2 % 11.6-14.6 [facility] Work Phone: Immature granulocytes/100 WBC (Bld) 0.200 % 0.0-0.9 [facility] Work Phone: Comment on above: IG% - Immature Granu locytes (promyelocytes, myelocytes and metamyelocytes) > 1% indicates that a LEFT SHIFT is Present. MCH (RBC) [Entitic mass] 24.8 pg 27.0-32.0 [facility] Work Phone: Nucleated RBC/100 WBC (Bld) [Ratio] 0 % 0-5 [facility] Work Phone: MCHC Auto (RBC) [Mass/Vol]on 03-19-2022 MCHC (RBC) [Mass/Vol] 30.5 g/dL 32-36 [facility] Work Phone: No Panel Informationon 03-19 Estimated GFR (MDRD) Amer 92 mL/min >60 [facility] Work Phone: Comment on above: GFR Calc Estimated GFR (MDRD) Non-Af Amer 76 mL/min >60 [facility] Work Phone: Comment on above: Non- GFR Calc Platelets bldon 03-19-2022 Platelets (Bld) [#/Vol] 226 10*3/uL 150-450 [facility] Work Phone: Serum or plasma albumin ibrahima urement (mass/volume)on 03-19-2022 Albumin [Mass/Vol] 3.6 g/dL 3.2-5.0 [facility] Work Phone: Serum or plasma albumin/glob ulin mass ratioon 03-19-2022 Albumin/Globulin [Mass ratio] 1.0 {ratio} 0.9-2.4 [facility] Work Phone: Serum or plasma calcium ibrahima urement (mass/volume)on 03-19-2022 Calcium [Mass/Vol] 8.6 mg/dL 8.5-10.1 [facility] Work Phone: Serum or plasma creatinine m easurement (mass/volume)on 03-19-2022 Creatinine [Mass/Vol] 1.01 mg/dL 0.70-1.30 [facility] Work Phone: Comment on above: The validity of the calculated GFR & GFRAA in patients over 70 years has not been determined. Clinical correlation is essential. Serum or plasma urea nitroge n measurement (mass/volume)on 03-19-2022 Urea nitrogen [Mass/Vol] 19 mg/dL 7-18 [facility] Work Phone: Thin prep Papanicolaou smear with manual screeningon 03-19-2022 Thin prep Papanicolaou smear with manual screening 19 U/L 15-37 [facility] Work Phone: Thin prep Papanicolaou smear with manual screening 6 5-15 [facility] Work Phone: Basophil percentageon 2021 Chloride [Moles/Vol] 106 mmol/L 98-107 [facility] Glucose [Mass/Vol] 133 mg/dL 74-106 [facility] Work Phone: Comment on above: Fasting Glucose resu lt greater than or equal to 126 mg/dL suggests DIABETES MELLITUS per A.D.A. criteria. Potassium [Moles/Vol] 4.5 mmol/L 3.5-5.1 [facility] Work Phone: Sodium [Moles/Vol] 137 mmol/L 136-145 [facility] Work Phone: WBC (Bld) [#/Vol] 10.5 10*3/uL 4.4-11.0 [facility] Work Phone: Blood erythrocytes count (nu mber/volume)on 12-21-2021 RBC (Bld) [#/Vol] 3.29 10*6/uL 4.6-6.2 [facility] Work Phone: Blood hemoglobin measurement (mass/volume)on 12-21-2021 Hemoglobin (Bld) [Mass/Vol] 9.8 g/dL 13.0-16.5 [facility] Work Phone: Blood platelet mean volumeon 12-21-2021 Platelet mean volume (Bld) [Entitic vol] 9.3 fL 6.2-12.0 [facility] Work Phone: Determination of erythrocyte mean corpuscular volume (MCV)on 12-21-2021 MCV (RBC) [Entitic vol] 92.1 fL 80-94 [facility] Work Phone: Hematocrit Auto (Bld) [Volum e fraction]on 12-21-2021 Hematocrit (Bld) [Volume fraction] 30.3 % 40-54 [facility] Work Phone: Laboratory - Chemistry and C hemistry - challengeon 12-21-2021 CO2 [Moles/Vol] 25.0 mmol/L 21.0-32.0 [facility] Work Phone: Urea nitrogen/Creatinine [Mass ratio] 19.5 mg/mg 10-20 [facility] Work Phone: Laboratory - Hematology and Cell countson 12-21-2021 Erythrocyte distribution width (RBC) [Entitic vol] 41.9 fL 35.1-43.9 [facility] Work Phone: Erythrocyte distribution width (RBC) [Ratio] 12.3 % 11.6-14.6 [facility] Work Phone: MCH (RBC) [Entitic mass] 29.8 pg 27.0-32.0 [facility] Work Phone: MCHC Auto (RBC) [Mass/Vol]on 12-21-2021 MCHC (RBC) [Mass/Vol] 32.3 g/dL 32-36 [facility] Work Phone: No Panel Informationon 12-21 Estimated Creatinine Clearance Calc 69.43 ml/min [facility] Work Phone: Estimated GFR (MDRD) Amer 102 mL/min >60 [facility] Work Phone: Comment on above: GFR Calc Estimated GFR (MDRD) Non-Af Amer 84 mL/min >60 [facility] Work Phone: Comment on above: Non- GFR Calc Platelets bldon 12-21-2021 Platelets (Bld) [#/Vol] 176 10*3/uL 150-450 [facility] Work Phone: Serum or plasma calcium ibrahima urement (mass/volume)on 12-21-2021 Calcium [Mass/Vol] 7.7 mg/dL 8.5-10.1 [facility] Work Phone: Serum or plasma creatinine m easurement (mass/volume)on 12-21-2021 Creatinine [Mass/Vol] 0.92 mg/dL 0.70-1.30 [facility] Work Phone: Comment on above: The validity of the calculated GFR & GFRAA in patients over 70 years has not been determined. Clinical correlation is essential. Serum or plasma urea nitroge n measurement (mass/volume)on 12-21-2021 Urea nitrogen [Mass/Vol] 18 mg/dL 7-18 [facility] Work Phone: Thin prep Papanicolaou smear with manual screeningon 12-21-2021 Thin prep Papanicolaou smear with manual screening 6 5-15 [facility] Work Phone: Glucose Glucometer (BldC) [M ass/Vol]on 12-20-2021 Glucose [Mass/Vol] 185 mg/dL 74-106 [facility] Work Phone: Comment on above: MANAGEMENT OF PATIEN T CARE PER NURSING PROTOCOL Laboratory - Chemistry and C hemistry - challengeon 12-20-2021 Magnesium [Mass/Vol] 2.3 mg/dL 1.6-2.[address] [facility] Work Phone: Comment on above: Moderate Hemolysis, Result may be falsely increased. No Panel Informationon 12-20 Nasal Screen MRSA/MSSA [facility] Work Phone: XR Chest PA and Lateralon IMPRESSION: No acute radiographic abnormality is evident. Steel Sampler: GONZALO Transcribe Date/Time: Sep 17 2020 8:25A Dictated by : DANNI EMANUEL MD This examination was interpreted and the report reviewed and electronically signed by: DANNI EMANUEL MD on Sep 17 2020 8:27AM [facility] DIVISION OF RADIOLOGY * * *Final Report* * * DATE OF EXAM: Sep 17 2020 8:21AM WOX [id number] - XR CHEST 2V FRONTAL/LAT / PROCEDURE REASON: Cough * * * * Physician Interpretation * * * * EXAMINATION: CHEST RADIOGRAPH (2 VIEW FRONTAL & LATERAL) CLINICAL HISTORY: Cough MQ: XC2_6 EXAM DATE/TIME: 09/17/2020 8:21 AM COMPARISON: 06/22/2019, 10/07/2018 RESULT: Lines, tubes, and devices: None. Lungs and pleura: No focal consolidation, pleural effusion or pneumothorax. Cardiomediastinal silhouette: Stable Bones and soft tissues: No acute osseous abnormality. DIVISION OF RADIOLOGY Provider, [facility] [place] - 09/17/2020 * * *Final Report* * * DATE OF EXAM: Sep 17 2020 8:21AM WOX [id number] - XR CHEST 2V FRONTAL/LAT / PROCEDURE REASON: Cough * * * * Physician Interpretation * * * * EXAMINATION: CHEST RADIOGRAPH (2 VIEW FRONTAL & LATERAL) CLINICAL HISTORY: Cough MQ: XC2_6 EXAM DATE/TIME: 09/17/2020 8:21 AM COMPARISON: 06/22/2019, 10/07/2018 RESULT: Lines, tubes, and devices: None. Lungs and pleura: No focal consolidation, pleural effusion or pneumothorax. Cardiomediastinal silhouette: Stable Bones and soft tissues: No acute osseous abnormality. IMPRESSION IMPRESSION: No acute radiographic abnormality is evident. Steel Sampler: PSCB Transcribe Date/Time: Sep 17 2020 8:25A Dictated by : DANNI EMANUEL MD This examination was interpreted and the report reviewed and electronically signed by: DANNI EMANUEL MD on Sep 17 2020 8:27AM EST [facility] Radiology Study observation (narrative) Kathleen Armstrong XR Chest PA and LateralOrder ed By: [facility] Provider on 09-17-[address] [facility] BMP with eGFRon 08-29-2020 Age - Reported 75 years Normal [facility] Comment on above: Performed By: #### 2 [id number] #### [facility],[address] [place] [address] Anion gap [Moles/Vol] 13 mmol/L Normal 10 - 20 [facility] Comment on above: Performed By: #### 2 70713 #### [facility],[address] [place] [address] Calcium [Mass/Vol] 8.8 mg/dL Normal 8.5 - 10.1 [facility] Comment on above: Performed By: #### 2 84586 #### [facility],[address] [place] [address] Chloride [Moles/Vol] 104 mmol/L Normal 98 - 107 [facility] Comment on above: Performed By: #### 2 00296 #### [facility],[address] [place], [place] [id number] CO2 [Moles/Vol] 26.2 mmol/L Normal 21.0 - 32.0 [facility] Comment on above: Performed By: #### 2 46480 #### [facility],[address] [place] [address] Creatinine [Mass/Vol] 1.1 mg/dL Normal 0.7 - 1.3 [facility] Comment on above: Performed By: #### 2 00003 #### [facility],[address] [place], [place] [phone] GFR/1.73 sq M predicted among non-blacks MDRD (S/P/Bld) [Vol rate/Area] Normal [facility] Comment on above: Result Comment: BASI C METABOLIC PANEL Performed By: #### 2 15154 #### [facility],[address] [place], [place] [phone] GFR/1.73 sq M predicted among non-blacks MDRD (S/P/Bld) [Vol rate/Area] mL/min/{1.73_m2} Normal 60 - 999 [facility] Comment on above: Performed By: #### 2 50034 #### [facility],[address] [place] [address] Result Comment: ACCO RDING TO THE NATIONAL KIDNEY DISEASE EDUCATION PROGRAM(NKDE), A NORMAL eGFR IS A VALUE GREATER THAN OR EQUAL TO 60 ML/MIN/1.73 SQ METERS. CHRONIC KIDNEY DISEASE: <60mL/MIN/1.73 SQ METERS KIDNEY FAILURE: <15mL/MIN/1.73 SQ METERS THIS TEST SHOULD ONLY BE USED FOR PATIENTS 18 YEARS OF AGE AND OLDER. Glucose [Mass/Vol] 117 mg/dL High 74 - 106 [facility] Comment on above: Performed By: #### 2 71867 #### [facility],[address] [place] [address] Potassium [Moles/Vol] 4.3 mmol/L Normal 3.5 - 5.1 [facility] Comment on above: Performed By: #### 2 01367 #### [facility],[address] [place] [address]440 Sodium [Moles/Vol] 139 mmol/L Normal 136 - 145 [facility] Comment on above: Performed By: #### 2 43367 #### [facility],[address] [place] [address] 35687 Urea nitrogen [Mass/Vol] 18 mg/dL Normal 7 - 18 [facility] Comment on above: Performed By: #### 2 41463 #### [facility],[address] [place] [address]106 CBC + DIFFon 08-29-2020 Basophils (Bld) [#/Vol] 0.10 x10EE3/UL Normal 0.00 - 0 .10 [facility] Comment on above: Performed By: #### 2 07017 #### [facility],[address] [place] [address] 88100 Basophils/100 WBC (Bld) 1.0 % Normal 0.0 - 2.0 [facility] Comment on above: Performed By: #### 2 47252 #### [facility],[address] [place] [address]303 CBC + DIFF Normal [facility] Comment on above: Result Comment: CBC- COMPLETE BLOOD COUNT Performed By: #### 2 02977 #### [facility],[address] [place] [address] 86005 Eosinophils (Bld) [#/Vol] 0.30 x10EE3/UL Normal 0.00 - 0.50 [facility] Comment on above: Performed By: #### 2 14622 #### [facility],[address] [place] [address]312 Eosinophils/100 WBC (Bld) 5.0 % Normal 0.0 - 7.0 [facility] Comment on above: Performed By: #### 2 90423 #### [facility],[address] [place] [address] Erythrocyte distribution width (RBC) [Ratio] 13.3 % Normal 12.0 - 15.6 [facility] Comment on above: Performed By: #### 2 20013 #### [facility],[address] [place] [address] Hematocrit (Bld) [Volume fraction] 40.9 % Normal 40.0 - 52.0 [facility] Comment on above: Performed By: #### 2 38965 #### [facility],[address] [place] [address] Hemoglobin (Bld) [Mass/Vol] 13.9 g/dL Normal 13.0 - 17.5 [facility] Comment on above: Performed By: #### 2 41099 #### [facility],[address] [place] [address]4983 Lymphocytes (Bld) [#/Vol] 1.40 x10EE3/UL Normal 0.80 - 2.80 [facility] Comment on above: Performed By: #### 2 21551 #### [facility],[address] [place], [place] [phone] Lymphocytes/100 WBC (Bld) 23.7 % Normal 20.0 - 45.0 [facility] Comment on above: Performed By: #### 2 16357 #### [facility],[address] [place], [place] [phone] MANUAL DIFF N/A Normal [facility] Comment on above: Performed By: #### 2 08971 #### [facility],[address] [place] [address] 00533 MCH (RBC) [Entitic mass] 31 pg Normal 27 - 33 [facility] Comment on above: Performed By: #### 2 17914 #### [facility],[address] [place] [address] 36786 MCHC (RBC) [Mass/Vol] 34 X10 3 Normal 32 - 36 [facility] Comment on above: Performed By: #### 2 56657 #### [facility],[address] [place] [address]121 MCV (RBC) [Entitic vol] 90 fL Normal 81 - 98 [facility] Comment on above: Performed By: #### 2 04999 #### [facility],[address] [place] [address] 25171 Monocytes (Bld) [#/Vol] 0.40 x10EE3/UL Normal 0.20 - 1 .00 [facility] Comment on above: Performed By: #### 2 50453 #### [facility],[address] [place] [address] 76569 MONOS % 7.1 % Normal 0.0 - 10.0 [facility] Comment on above: Performed By: #### 2 70130 #### [facility],[address] [place] [address] 56631 Morphology Davis (Bld) [Interp] N/A Normal [facility] Comment on above: Result Comment: {CD] Performed By: #### 2 24952 #### [facility],[address] [place] [address] 07284 Neutrophils (Bld) [#/Vol] 3.70 x10EE3/UL Normal 1.50 - 7.10 [facility] Comment on above: Performed By: #### 2 46509 #### [facility],[address] [place] [address] 88072 Neutrophils/100 WBC (Bld) 63.2 % Normal 46.0 - 76.0 [facility] Comment on above: Performed By: #### 2 28893 #### [facility],[address] [place] [address] 87730 Platelet mean volume (Bld) [Entitic vol] 8.2 fL Normal 6.4 - 10.5 [facility] Comment on above: Result Comment: AUTO MATED DIFFERENTIAL Performed By: #### 2 26534 #### [facility],[address] [place] [address] 25100 Platelets (Bld) [#/Vol] 180 x10EE3/UL Normal 150 - 450 [facility] Comment on above: Performed By: #### 2 25395 #### [facility],[address] [place] [address] 62864 RBC (Bld) [#/Vol] 4.54 x 10EE6/UL Normal 4.50 - 6.00 [facility] Comment on above: Performed By: #### 2 67582 #### [facility],[address] [place] [address] 45405 WBC (Bld) [#/Vol] 5.8 x 10EE3/UL Normal 4.5 - 10.8 [facility] Comment on above: Performed By: #### 2 30706 #### [facility],[address] [place] [address] 32206 ALLIED HEALTHon 09-20-2019 ALLIED HEALTH HNO ID: [id number] Author: Shanna ParmarRt) Nitin Dodd Service: Radiology Author Type: Rock Contractor Type: Allied Health Filed: 09/20/2019 9:36 AM Note Text: RADIOLOGY SERVICE PROGRESS NOTE SERVICE DATE: 09/20/2019 SERVICE TIME: 9:35 AM PATIENT IDENTITY VERIFICATION COMPLETED USING TWO (2) STANDARD IDENTIFIERS: Name and Date of confirmed by patient verbally and Name and Date of confirmed by identification band PATIENT GENDER DATA: .male ALLERGIES: Reviewed and unchanged MEDICATIONS REVIEWED: Not applicable PATIENT RELEVANT IMPLANT DATA REVIEWED: Not Applicable CREATININE: Creatinine Date Value Ref Range Status 06/23/2019 0.85 0.67 - 1.17 mg/dL Final 01/17/2019 0.96 0.73 - 1.22 mg/dL Final 08/31/2018 1.00 0.6 - 1.3 MG/DL Final 04/13/2018 1.10 0.73 - 1.22 mg/dL Final eGFR-All Other Races Date Value Ref Range Status 01/17/2019 >60 . Final Comment: eGFR (Estimated GFR) Units of measure: mL/min/1.73 meters squared eGFR is derived from the reexpressed MDRD Study equation using the following parameters: serum creatinine, age, gender and race. The creatinine assay has been calibrated to be traceable to IDMS. An eGFR <60 mL/min/1.73m2 for >3 months is consistent with chronic kidney disease. Refer to KDOQI guidelines for clinical interpretation. In patients with unstable renal function, e.g. those with acute kidney injury, the eGFR may not accurately reflect actual GFR. eGFR- Date Value Ref Range Status 01/17/2019 >60 Final P.O.C.T. RESULTS: N/A September 20, [address] PERFORMED: No IV SITE: Ambulatory: A peripheral IV was started in the Right forearm with a Angio cath: 22 gauge. POST EXAM PIV STATUS: Discontinued PROCEDURE TYPE: NM Stress: 13.1mCi [id number] was administered IV for Rest Imaging at 7:53 by DEBBY SHUKLA. 34.2 mCi [id number] was administered IV for Stress Imaging at 9:23 by RT Tiffany. PATIENT DISCHARGED TO: Ambulatory patient, left NM department area. A Diagnostic radioactive procedure has taken place, with no further precautions necessary other than routine body substance precautions. More information regarding radiation safety can be found using this link: [email or web address] SIGNATURE: RT Tiffany PATIENT NAME: Zion Marsh DATE: September 20, 2019 TIME: 9:35 AM PAGER/CONTACT #: [facility] CARDIAC PERF STRESS/EXERC ISEon 09-20-2019 [place] CARDIAC PERF STRESS/EXERCISE * * *Final Report* * * DATE OF EXAM: Sep 20 2019 10:57AM AUTUMN 0004 - [place] CARDIAC PERF STRESS/EXERCISE / PROCEDURE REASON: multiple diagnoses * * * * Physician Interpretation * * * * PATIENT: Name: SALMA Vera Age: 74 years Gender: M CONCLUSIONS: 1. SPECT Perfusion Study: Normal. 2. There is no scintigraphic evidence for inducible ischemia. 3. No evidence of scarred myocardium. 4. Average functional capacity for age and gender. 5. Left ventricle is normal in size. The left ventricle systolic function is normal. 6. Right ventricle is normal in size. 7. This is a low risk scan. 1 LVEF % 57 Prior Study Comparison No prior nuclear cardiology exam available for comparison. Nuclear Med Report:1-Day [id number] Exercise Stress Gated SPECT: Myocardial perfusion imaging was performed at rest 30 to 60 minutes following the IV injection of Tc-99m tetrofosmin. One minute prior to peak exercise, the patient was injected IV with Tc-99m tetrofosmin. Gated post stress tomographic imaging was performed 10 to 20 minutes later. See administered doses below. [facility] Date of service: 09/20/2019 7:56:49 AM Ordering Physician: HECTOR NIETO Requesting Physician: Indication: Dyspnea and Assessment for known CAD. Interpreting physician: Gerson Young DO Patient History: History of hypertension, dyslipidemia, coronary heart disease, myocardial infarction and family hx of premature CAD. Medications currently taking are ACEI, statins, ASA and anti-depressants. Height: 180.34 cm BSA: 2.29 m? Weight: 104.33 kg BMI: 32.1 kg/m? Primary Rhythm: Sinus, PVC and RBBB. Secondary Rhythm: Sinus, PVC, RBBB and Non-Specific ST/T Wave Changes. Exam Type: Rest Stress Radiopharm: Tc-99m Tetrofosmin Tc-99m Tetrofosmin Dosage(mCi): 13.1 34.2 Atten Correction: not performed Stress Agent: Treadmill Resting Heart Rate: 54 bpm Resting Blood Press: 122/78 mmHg Image Quality The overall study imaging quality was deemed to be good. FINDINGS: Left Ventricle Wall Motion: 1 - All segments are normal. 1 1 LVEF: 57 % LEFT VENTRICLE The left ventricle is normal in size. Left ventricular systolic function is normal. Right Ventricle The right ventricle is normal in size. Stress Test Findings: There is no scintigraphic evidence for inducible ischemia. There is no evidence of scarring. The stress test was terminated due to the following: Fatigue. Peak HR 127 bpm. Exercise duration 11 min 30 sec. (88 % MPHR) (7.2 METS) Peak BP 212 mmHg/96 mmHg Patient experienced shortness of breath during stress. Stress ECG normal ST segment response, normal sinus rhythm, premature ventricular contraction and right bundle branch block. Stress complications: none. Final Steel Sampler: JAMES Transcribe Date/Time: Sep 20 2019 7:56A Dictated by : GERSON YOUNG DO This examination was interpreted and the report reviewed and electronically signed by: GERSON YOUNG DO on Sep 20 2019 6:14PM EST [id number] [facility] NUCLEAR STRESS TEST EXERCISE (CARD)on 09-20-2019 NUCLEAR STRESS TEST EXERCISE (CARD) NAME : ZION MARSH PID : [id number] : 1945 Gender : Male Race : ORD : [id number] Procedure Date : Sep 20 2019 09:11:56 Edit Date : Sep 21 2019 08:47:10 Protocol Name : MODBRUCE Time In Exercise Phase : 00:11:30 Max. Systolic BP : 212 mmHg Max Diastolic BP : 96 mmHg Max Heart Rate : 127 BPM Max Predicted Heart Rate : 145 BPM Recovery ECG Response (OLD) : Reason For Termination : Leg Fatigue Test Reason : Dyspnea Location :NSL Overread By : GERSON YOUNG D.O. Edited By : Joann Ramsey Referred By : GERSON YOUNG Acquired by : Joann Ramsey [facility] Total 25-OH Vitamin Don 11-2 Total 25-OH Vitamin D 25.2 ng/mL Low 30.0-100.0 [facility] Comment on above: Performed By: #### 2 5VD1 #### [place] [address] Basic Panelon 06-23-2019 Creatinine [Mass/Vol] 0.85 mg/dL Normal 0.67-1.17 [facility] Comment on above: Performed By: #### P 8 #### [place] [address] Anion gap [Moles/Vol] 7 mmol/L Low 8-16 [facility] Comment on above: Performed By: #### P 8 #### [address], [place] [address] Calcium [Mass/Vol] 8.5 mg/dL Normal 8.5-10.1 [facility] Comment on above: Performed By: #### P 8 #### [facility] [address] [place], [place] [address] CO2 [Moles/Vol] 29 mmol/L Normal 21-32 [facility] Comment on above: Performed By: #### P 8 #### [facility] [address] [place], [place] [address] Glucose [Mass/Vol] 121 mg/dL High 70-99 [facility] Comment on above: Performed By: #### P 8 #### [facility] [address] [place], [place] [address] Urea nitrogen [Mass/Vol] 15 mg/dL Normal 7-18 [facility] Comment on above: Performed By: #### P 8 #### [facility] [address] [place], [place] [address] Chloride [Moles/Vol] 105 mmol/L Normal 98-107 [facility] Comment on above: Performed By: #### P 8 #### [facility] [address] [place], [place] [address] Potassium [Moles/Vol] 3.9 mmol/L Normal 3.5-5.1 [facility] Comment on above: Performed By: #### P 8 #### [facility] [address] [place], [place] [address] Sodium [Moles/Vol] 137 mmol/L Normal 136-145 [facility] Comment on above: Performed By: #### P 8 #### [facility] [address] [place], [place] [address] CASE MANAGEMon 06-23-2019 CASE MANAGEM HNO ID: [id number] Author: Gerson Peguero Service: ? Author Type: Physician Type: Care Mgt Progress Note Filed: 06/24/2019 1:42 PM Note Text: CARE MANAGEMENT UTILIZATION REVIEW COMMITTEE Condition Code 44 (Admission Status Discrepancy Review) Admission Date: 06/23/2019 Patient's Initial Order is: Inpatient Date received: 06/24/2019 Date reviewed: 06/24/2019 The practitioner responsible for the care of the patient was consulted and concurs with the determination made by the UR Committee. Under the authority of the Utilization Management Plan, the Physician Advisor has reviewed the medical record of the above patient. The following recommendation has been made by the Physician Advisor, based upon the current available medical information as of the date of this determination. This patient is appropriate for: Observation Rationale for this decision: Lack of medical necessity for inpatient status. SIGNATURE: Gerson Peguero MD PATIENT NAME: Zion Marsh DATE: June 24, 2019 TIME: 1:40 PM PAGER/CONTACT #: [phone] Disclaimer: The information in this determination is to be used for utilization management purposes only. The information and recommendation is made pursuant to Medicare Hospital Conditions of Participation (442 CFR Part 482) and is neither a judgment nor an assessment with regard to the appropriateness or quality of the clinical care. Nothing in this document may be used to limit clinical services provided to the above named patient. This form should be used as one part of the process utilized to ensure compliance with [facility] policy regarding Inpatient Admission and Observation Services. The definitions of Inpatient and Observation used in making the determination above are those provided in Medicare Benefit Policy Manual Chapter 1, Section 1 and 10, Chapter 6, Section 20, and the Medicare Claims Processing Manual Chapter 1, Section 50.3 and Chapter 4, Section 290. This recommendation should be considered as only one factor in determining the patient's final level of service along with other pertinent documentation such as the treating physician's order as documented evidence of concurrence. [facility] CONSULTon 06-23-2019 CONSULT HNO ID: [id number] Author: Nikki Anderson Service: Hospital Medicine Author Type: Physician Type: Consults Filed: 06/23/2019 10:57 AM Note Text: DEPARTMENT OF HOSPITAL MEDICINE HISTORY AND PHYSICAL EXAM SERVICE DATE: 06/23/2019 SERVICE TIME: 06/23/2019 Primary Care Physician: Abe Gilmore MD NIGHT AND WEEKEND COVERAGE: After 7pm, please call cross cover pager #[phone] Subjective CHIEF COMPLAINT: Fall Reason for consult: Geriatric management HPI: 73 year old male with history of CAD, HTN, GERD presenting post fall off of a ladder. He was admitted as a trauma after having fallen 8-10 feet off a ladder with L rectus sheath hematoma. He is currently resting in bed. He was hanging holiday lights and apparently passed out. He does not remember the fall. He denies any associated CP or SOB. He denies nausea or vomiting. No previous history of passing out or seizures save once prior to his last heart cath about 20 years ago. He denies any prodromal symptoms. He remembers some uzma stopping to try and wake him up. Currently, he is resting in bed. No headache, CP, SOB, n/v. No lightheadedness or dizziness. Has been up to bathroom. 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/02/2011 - Coronary artery disease - Elevated BP 01/02/2011 - Esophagitis, unspecified - GENERAL OSTEOARTHROSIS 07/29/2007 - GERD (gastroesophageal reflux disease) - Heartburn gastritis - Hypertension - Impaired fasting glucose - WI, old silent on EKG - Mixed hyperlipidemia 07/21/2008 - Personal history of colonic polyps - Renal calculi - Snoring - Umbilical hernia 11/14/2009 PAST SURGICAL HISTORY Procedure Laterality Date - APPENDECTOMY - CARDIAC CATH 12/30/10 no stents - COLONOSCOP W/ OR W/O [facility] SPEC 4-30-14 diverticulosis, repeat in 5 years - COLONOSCOP W/ OR W/O [facility] SPEC 12/06/2018 Colonoscopy - COLONOSCOPY W/BX ?, 10/10/08 - EGD W/O [facility] SPECIMEN W/BX 10/10/08 - EGD W/O OR W/BRUSH/WASH 01/14/16 EGD - INGUINAL HERNIA REPAIR HX right - PAST SURGICAL HISTORY OF s basket retrieval kidney stones - REPAIR COMPL ROTATOR CUFF AVULSN,CHR 04/2011 right-workers comp - ROTATOR CUFF REPAIR 2011 left, [place] - SALIVARY SURG UNLISTED PROC ? 1970s ? Mass removed from right cheek - TOTAL HIP REPLACEMENT 07/02/09 right Hip replacement, total - TOTAL HIP REPLACEMENT 08/27/09 left Hip replacement, total FAMILY HISTORY Problem Relation Age of Onset - Heart Mother [place] - Heart Brother - Cancer Brother bone - None Father unknown - Heart Brother 45 [place] Social History Tobacco Use - Smoking status: Never Smoker - Smokeless tobacco: Never Used Substance Use Topics - Alcohol use: No - Drug use: No MEDICATIONS: Reviewed omeprazole (PRILOSEC) 20 mg capsule, TAKE 2 CAPSULES BY MOUTH DAILY BEFORE BREAKFAST., Disp: 180 capsule, Rfl: 3 finasteride (PROSCAR) 5 mg tablet, Take 1 tablet by mouth once daily., Disp: 90 tablet, Rfl: 3 lisinopril (ZESTRIL, PRINIVIL) 10 mg tablet, Take 1 tablet by mouth once daily., Disp: 90 tablet, Rfl: 3 doxazosin (CARDURA) 4 mg tablet, Take 1 tablet by mouth once daily., Disp: 90 tablet, Rfl: 0 venlafaxine ER (EFFEXOR XR) 150 mg 24 hr capsule, Take 1 capsule by mouth once daily., Disp: 90 capsule, Rfl: 1 sildenafil (VIAGRA) 100 mg tablet, Take 1 tablet by mouth. TAKE 30-60 MINUTES BEFORE SEXUAL INTERCOURSE NEEDED. Do not exceed 100 mg in 24 hours, Disp: 6 tablet, Rfl: 5, Unknown at Unknown time TRAMADOL 50 MG TAB, Take 1 tab for pain 1-2x daily as needed, Disp: 30, Rfl: 1, Unknown at Unknown time atorvastatin (LIPITOR) 40 mg tablet, Take 1 tablet by mouth daily at bedtime., Disp: 90 tablet, Rfl: 1 aspirin, enteric coated (ECOTRIN LOW STRENGTH) 81 mg ORAL EC tablet, Take 1 tablet by mouth once daily., Disp: , Rfl: 0, 12/03/2018 ALLERGIES No Known Allergies REVIEW OF SYSTEM: GENERAL: No weight loss, malaise or fevers HEENT: Negative for frequent or significant headaches, No changes in hearing or vision, no nose bleeds or other nasal problems NECK: Negative for lumps, goiter, pain and significant neck swelling RESPIRATORY: Negative for cough, hemoptysis, wheezing, COPD, dyspnea or shortness of breath CARDIOVASCULAR: Negative for chest pain, leg swelling, hypertension, CHF or palpitations GI: denies nausea, vomiting, or diarrhea : denies dysuria, frequency or incontinence MUSCULOSKELETAL: positive for back pain or muscle pain SKIN: Negative for lesions, rash, and itching NEURO: denies headaches, history syncope, paralysis, seizures or tremors Objective PHYSICAL EXAM: BP 147/60 Pulse 62 Temp (Src) 98.6 (Oral) Resp 20 Ht 5' 11 (1.80m) Wt 222 lb 10.6 oz (101.0kg) SpO2 97% BMI 31.07 kg/(m2). O2 Therapy: Room Air Physical Exam Performed: GENERAL: Alert, no distress, cooperative SKIN: Skin color, texture, turgor normal. No rashes or lesions. HEAD/SINUSES: No significant findings EYES: PERRLA, EOMI LUNGS: Lungs clear to auscultation, Good diaphragmatic excursion CARDIAC: Normal S1 and S2; no rubs, murmurs, or gallops ABDOMEN: Abdomen soft, non-tender, BS normal, No masses or organomegaly EXTREMITIES: Extremities normal, no deformities, edema, clubbing or skin discoloration. Good capillary refill., No ulcers NEURO: Sensation grossly intact, Cranial nerves II-XII intact PULSES: 2+ radial, 2+ carotid Lines, Drains, and Airways Line Peripheral 06/23/19 Assessment Short Left Antecubital 20 Gauge less than 1 day Reviewed lines, drains, AND airways. Need to be continued yes DATA: Diagnostic tests reviewed for today's visit: Most recent labs and imaging results. Assessment/Plan 73 year old male presenting as geriatric trauma after fall off a ladder while hanging holiday decorations with rectus sheath hematoma with pain control and management as per trauma service #syncope-unclear etiology at this time, rule out arrhythmia, check echo, telemetry monitoring, suggest orthostatic checks once stabilized and cleared by trauma #anemia-per trauma, follow, likely related to hematoma #HTN-BP has been stable, continue home meds and monitor closely #HLD-continue statin #GERD-continue PPI #BPH-continue proscar #CAD-aspirin on hold as per trauma given hematoma, continue statin, OP cardiology follow up Thanks for the consult. Please call with questions Medication and Non-Pharmacologic VTE Prophylaxis/Anticoag ulants 06/23/19414 vte pharmacologic prophylaxis contraindicated (ky,pr) 06/23/19414 pneumatic compression stockings (ky,pr) 06/23/19414 activity - mobilize patient ([place], [place]) VTE Prophylaxis: per primary Disposition: per primary Plan of care discussed with: Provider, RN, Patient SIGNATURE: Nikki Anderson DO PATIENT NAME: Zion Marsh DATE: June 23, 2019 TIME: 6:45 AM PAGER/CONTACT #: [phone] [facility] ED NOTEon 06-23-2019 ED NOTE HNO ID: [id number] Author: Juan Pablo Parada) ROCIO Clarke Service: Emergency Medicine Author Type: Registered Nurse Type: ED Notes Filed: 06/23/2019 3:36 AM Note Text: Pt report was called to the floor, Calista CHAN. Pt in no acute distress and vitals are stable. Pt understands and accepts admission to the hospital. Pt was taken to floor by staff in a W/C. [facility] ED NOTE HNO ID: [id number] Author: Hortencia ParmarRn) Sammie Torres RN Service: ? Author Type: Registered Nurse Type: ED Notes Filed: 06/23/2019 2:24 AM Note Text: Labs drawn and sent. [facility] ED NOTE HNO ID: [id number] Author: Hortencia ParmarRn) Sammie Torres RN Service: ? Author Type: Registered Nurse Type: ED Notes Filed: 06/23/2019 2:24 AM Note Text: Trauma resident at bedside. [facility] ED NOTE HNO ID: [id number] Author: Juan Pablo ParmarRn) ROCIO Clarke Service: Emergency Medicine Author Type: Registered Nurse Type: ED Notes Filed: 06/23/2019 1:49 AM Note Text: Pt is a transfer from [facility] and brought in by [facility]. Pt fell 6-8 feet from ladder and positive LOC. Pt reports left sided abdominal pain. [facility] ED PROV NOTEon 06-23-2019 ED PROV NOTE HNO ID: [id number] Author: Sara Corcoran DO Service: Emergency Medicine Author Type: Physician Type: ED Provider Notes Filed: 07/03/2019 12:38 AM Note Text: I saw and evaluated the patient. Discussed with the resident and agree with resident's findings and plan as documented in the resident's note. This is a 73-year-old male who presents to the emergency department as a transfer from [facility] after he sustained a fall. He was putting up [employer] lights when he fell approximately 6-10 feet. The patient states everything happened so fast he is not sure if he hit his head. He denies neck pain or back pain. His only complaint is pain in his left lower quadrant of his abdomen. At the outside facility he was found to have bleeding in his left lateral rectus abdominis muscle. He denies any pain in the arms or legs. He was ambulatory after this occurred. He actually states he got back up on the ladder and finished hanging [employer] decorations. The injury occurred approximately 1:30 PM yesterday. Gen. appearance alert awake well-nourished well-developed male lying supine resting comfortably. He is pleasant smiling and conversant. HEENT head is normal cephalic atraumatic pupils are equal round reactive to light extraocular muscles are intact mucous membranes are moist neck is supple no JVD. Tympanic arms are normal. Midface is stable. Neck has no midline tenderness step-offs or deformities. Cardiac vascular jugular rhythm without murmurs gallops rubs. Lungs clear to auscultation laterally without wheezes rales rhonchi. Abdomen is soft with some tenderness palpation and some induration to left lower quadrant. There is some mild ecchymosis. There is no rebound rigidity or guarding no peritoneal signs. Back no midline tenderness step-offs or deformities to the cervical thoracic or lumbar spine. Extremities no point bony tenderness of patient to the to the extremities and no tenderness palpation or rocking of the pelvis. Neurologic alert awake oriented ?3 cranial nerves to 12 are grossly intact no focal deficits. Psychiatric patient's, cooperative with normal affect. ED course patient was seen and evaluated in the emergency department. Trauma was consulted. The patient remained hemodynamically stable. Plan will be for admission for observation to the trauma service. Please see resident's note for additional details. The patient's pain was well controlled and he remained hemodynamically stable. Sara Corcoran DO 07/03/19 0038 [facility] ED PROV NOTE HNO ID: [id number] Author: Debi Whitfield DO Service: Emergency Medicine Author Type: Resident Type: ED Provider Notes Filed: 06/23/2019 4:40 AM Note Text: Attestation signed by Sara Corcoran DO at 06/25/2019 7:09 AM I saw and evaluated the patient. Discussed with the resident and agree with resident's findings and plan as documented in the resident's note. ED Provider Note Patient Name: Zion Marsh SERVICE DATE: 06/23/19 History Patient presents with: Abdominal Pain 73-year-old male with history of CAD, BPH, hypertension presents as a trauma transfer after mechanical fall. Patient was putting up [employer] lights when he fell 6-10 feet off of a stepladder. Patient endorses loss of consciousness. Patient is not on anticoagulation. Patient denies headache and neck tenderness. At outside facility patient was found to have bleeding from his left lateral rectus abdominis muscle. Hemoglobin was 11.9. Patient currently complaining of left lower quadrant abdominal pain. 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/02/2011 - Coronary artery disease - Elevated BP 01/02/2011 - Esophagitis, unspecified - GENERAL OSTEOARTHROSIS 07/29/2007 - GERD (gastroesophageal reflux disease) - Heartburn gastritis - Hypertension - Impaired fasting glucose - WI, old silent on EKG - Mixed hyperlipidemia 07/21/2008 - Personal history of colonic polyps - Renal calculi - Snoring - Umbilical hernia 11/14/2009 PAST SURGICAL HISTORY Procedure Laterality Date - APPENDECTOMY - CARDIAC CATH 12/30/10 no stents - COLONOSCOP W/ OR W/O [facility] SPEC 4-30-14 diverticulosis, repeat in 5 years - COLONOSCOP W/ OR W/O [facility] SPEC 12/06/2018 Colonoscopy - COLONOSCOPY W/BX ?, 10/10/08 - EGD W/O [facility] SPECIMEN W/BX 10/10/08 - EGD W/O OR W/BRUSH/WASH 01/14/16 EGD - INGUINAL HERNIA REPAIR HX right - PAST SURGICAL HISTORY OF s basket retrieval kidney stones - REPAIR COMPL ROTATOR CUFF AVULSN,CHR 04/2011 right-workers comp - ROTATOR CUFF REPAIR 2011 left, [place] - SALIVARY SURG UNLISTED PROC ? 1970s ? Mass removed from right cheek - TOTAL HIP REPLACEMENT 07/02/09 right Hip replacement, total - TOTAL HIP REPLACEMENT 08/27/09 left Hip replacement, total FAMILY HISTORY Problem Relation Age of Onset - Heart Mother [place] - Heart Brother - Cancer Brother bone - None Father unknown - Heart Brother 45 [place] Social History Tobacco Use - Smoking status: Never Smoker - Smokeless tobacco: Never Used Substance and Sexual Activity - Alcohol use: No - Drug use: No - Sexual activity: Yes Partners: Female ALLERGIES No Known Allergies Review of Systems Constitutional: Negative for chills, diaphoresis and fever. HENT: Negative for congestion and rhinorrhea. Respiratory: Negative for cough and shortness of breath. Cardiovascular: Negative for chest pain and palpitations. Gastrointestinal: Positive for abdominal pain. Negative for diarrhea, nausea and vomiting. Genitourinary: Negative for difficulty urinating and dysuria. Musculoskeletal: Negative for back pain and neck stiffness. Skin: Negative for color change and pallor. Neurological: Negative for dizziness and headaches. Psychiatric/Behavior al: Negative for confusion, hallucinations and suicidal ideas. Physical Exam BP 127/55 Pulse 60 Temp (Src) 98.8 (Oral) Resp 19 Ht 5' 11 (1.80m) Wt 224 lb (101.6kg) SpO2 97% BMI 31.26 kg/(m2). O2 Therapy: Room Air Physical Exam Vitals signs and nursing note reviewed. Constitutional: General: He is not in acute distress. Appearance: He is well-developed. He is not diaphoretic. HENT: Head: Normocephalic and atraumatic. Right Ear: External ear normal. Left Ear: External ear normal. Cardiovascular: Rate and Rhythm: Normal rate and regular rhythm. Heart sounds: Normal heart sounds. No murmur. No friction rub. No gallop. Pulmonary: Effort: Pulmonary effort is normal. No respiratory distress. Breath sounds: Normal breath sounds. No wheezing. Abdominal: General: Bowel sounds are normal. There is no distension. Palpations: Abdomen is soft. Tenderness: There is tenderness in the left lower quadrant. There is no left CVA tenderness. Comments: No midline C/T/L-spine tenderness. No bruising or ecchymosis in the abdomen. Left lower quadrant abdominal tenderness Skin: General: Skin is warm and dry. Neurological: Mental Status: He is alert and oriented to person, place, and time. Diagnostic Testing ED Labs Ordered and Reviewed - No data to display Procedures ED Course / Clinical Impression Clinical Impressions as of Jun 23 438 Traumatic rectus hematoma, initial encounter MDM / Disposition / Plan 73-year-old male with history of CAD, BPH, hypertension presents as a trauma transfer after a mechanical fall. Vitals are normal. Patient is nontoxic appearing. Trauma surgery consulted for evaluation. CT from outside facility demonstrates hemorrhage from left lateral rectus abdominis muscle. Does not appear to be any active extravasation. Repeat hemoglobin is 10.8. Patient admitted to the floor under the trauma service for observation and serial CBCs. Patient stable at admission. Disposition The patient was admitted. Admitted to Regular Nursing Floor. Condition at disposition is stable. SIGNATURE: DO Debi Carrillo Res, DO Resident 06/23/19 0440 Sara Corcoran DO 06/25/19 0709 [facility] Glucose Meteron 06-23-2019 Glucose [Mass/Vol] 117 mg/dL High 70-99 [facility] Comment on above: Result Comment: RN N OTIFIED Performed By: #### G LMET #### [place] [address] HISTORY PHYSICALon 9 HISTORY PHYSICAL HNO ID: [id number] Author: Chidi Musa Service: Trauma Author Type: Resident Type: HANDP Filed: 06/23/2019 3:15 AM Note Text: Attestation signed by Perico Peterson at 06/23/2019 9:30 AM Attending Note I personally saw and examined the patient. I reviewed the resident's note. I agree with the resident's assessment and plan unless otherwise noted. Benign exam. Repeat CBC then dc home Signature: Perico Peterson MD Date: 06/23/2019 Time: 9:29 AM TRAUMA HANDP [facility] ARRIVAL DATE: 06/23/19 ARRIVAL TIME: 0142AM CATEGORY: Level 3 INJURY DATE: 06/22/19 INJURY TIME: 2:00pm Subjective This is a 73 year old White male who presents following a fall. 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 He does not recall the fall or if he hit his head, but he did lose consciousness. He was found down by a bystander almost immediately after the fall, who called EMS. He was taken to [facility] where CT head and abdomen/pelvis, CXR were performed and showed the rectus hematoma. Pt takes ASA 81mg, but no other anticoagulation. His only complaint at this time is left lower quadrant abdominal pain. HPI/CHIEF COMPLAINT: OTHER MECHANISMS: Fall from ladder, distance of 8-10 feet BRIEF DESCRIPTION OF INJURIES: left rectus abdominis hematoma LAST FLUIDS/MEAL: IV fluids ongoing CODE STATUS: Not discussed ALLERGIES No Known Allergies (Not in a hospital admission) DATE OF LAST TETANUS: per our records, below, 2006 Immunization History Administered Date(s) Administered Influenza Seasonal - High Dose - Age 65+ 05/23/2015 Influenza Vaccine, Split-Non Spec 05/15/2008 05/02/2009 04/14/2013 Pneumococcal-13 Vac Conjugate 09/19/2014 Pneumovax 07/21/2008 10/04/2015 Tdap (Age 7+) 09/08/2006 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/02/2011 - Coronary artery disease - Elevated BP 01/02/2011 - Esophagitis, unspecified - GENERAL OSTEOARTHROSIS 07/29/2007 - GERD (gastroesophageal reflux disease) - Heartburn gastritis - Hypertension - Impaired fasting glucose - [place], old silent on EKG - Mixed hyperlipidemia 07/21/2008 - Personal history of colonic polyps - Renal calculi - Snoring - Umbilical hernia 11/14/2009 PAST SURGICAL HISTORY Procedure Laterality Date - APPENDECTOMY - CARDIAC CATH 12/30/10 no stents - COLONOSCOP W/ OR W/O [facility] SPEC -30-14 diverticulosis, repeat in 5 years - COLONOSCOP W/ OR W/O [facility] SPEC 12/06/2018 Colonoscopy - COLONOSCOPY W/BX ?, 10/10/08 - EGD W/O [facility] SPECIMEN W/BX 10/10/08 - EGD W/O OR W/BRUSH/WASH 01/14/16 EGD - INGUINAL HERNIA REPAIR HX right - PAST SURGICAL HISTORY OF s basket retrieval kidney stones - REPAIR COMPL ROTATOR CUFF AVULSN,CHR 04/2011 right-workers comp - ROTATOR CUFF REPAIR 2011 left, [place] - SALIVARY SURG UNLISTED PROC ? 1970s ? Mass removed from right cheek - TOTAL HIP REPLACEMENT 07/02/09 right Hip replacement, total - TOTAL HIP REPLACEMENT 08/27/09 left Hip replacement, total Social History Tobacco Use - Smoking status: Never Smoker - Smokeless tobacco: Never Used Substance Use Topics - Alcohol use: No - Drug use: No ROS: Is the patient having any pain? Yes LOCATION: LLQ abdomen Constitutional: Negative Eye/Ear/Nose: Negative Respiratory: Negative Cardiovascular: Negative GI/Liver/Biliary: Negative Genitourinary: positive for dysuria Psychiatric: Negative Neurologic: chronic tremor/tick BLE Musculoskeletal: chronic degenerative disc disease, arthritis Integument: Negative Endocrine: Negative Heme/Lymph: Negative Objective PRIMARY SURVEY AIRWAY: Patent BREATHING: Breath sounds equal CIRCULATION: PT/DP intact, Radials intact DISABILITY: Eye: 4=Spontaneous Verbal: 5=Oriented and Converses Motor: 6=Obeys Commands Total GCS: 15=4 Resp Rate: 10 to 29=4 Syst BP: > than 89=4 REVISED TRAUMA SCORE: 12 EXPOSE / ENVIRONMENT: Not Applicable PROCEDURES: none SECONDARY SURVEY VITALS: 06/23/19 0142 06/23/19 0200 06/23/19 0230 BP: 127/55 136/65 127/98 Pulse: 60 61 59 Resp: 19 23 (!) 27 Temp: 37.1 ?C (98.8 ?F) TempSrc: Oral SpO2: 97% 97% 98% Weight: 101.6 kg (224 lb) Height: 180.3 cm (5' 11) NEURO: Alert AND Oriented x 3, GCS 15, Cranial Nerves II-XII Intact, Moves All Extremities, Strength Symmetrical, No Sensory Deficits. Repetitive flexion/extension @ ankle, per family is chronic HEENT: Head: No lacerations or abrasions, no bony step offs, midface stable to palpation, Eyes: PERRL, conjunctiva/corneas without lesions, EOM intact, Ears: Canals without blood or CSF drainage, TMs clear, external ears without lacerations, Nose: no crepitus with motion, Throat: Oral mucosa without lacerations, teeth/partial in place, tongue without lacerations NECK: No midline pain with palpation, No pain with active ROM, No lacerations/wounds, Trachea midline RESPIRATORY: No abrasions or contusions, No crepitus, No TTP, Equal Excursion CARDIOVASCULAR: Heart rate regular ABDOMEN: soft, nondistended, TTP LLQ, no rebound or guarding, or peritoneal signs PELVIC/PERINEAL: pelvis stable BACK/SPINE: Thoracolumbar spinal column non-tender, No step off or deformity noted, No external injury noted EXTREMITIES: no gross deformities to extremities RADIOLOGICAL/OTHER TEST DATA: CXR: No traumatic injuries CT Head: No traumatic injuries CT A/P with Contrast: There is marked swelling of the lower aspect of the left rectus abdominis muscle due to an internal hematoma. Several fine foci of bright hemorrhage is present indicating these are more acute or could be possible actively bleeding. There is a small amount of lower abdominal and intrapelvic hemorrhage emanating from the left rectus abdominis muscle No large or obvious artery is seen demonstrating contrast extravasation or active hemorrhaging Small bilateral kidney stones PRIOR TO ARRIVAL: taken to [facility] ED where imaging and labs were performed IMAGES As above LABS: WBC 9.3 Hgb 11.9. repeat @ 2AM was 10.8 Platelet 160 Creatine 1.01 Assessment/Plan 73 year old male s/p fall from 8-10 feet from ladder, with left rectus abdominis hematoma. No active extrav seen on CT Imaging performed: 1. CT head 2. CT A/P 3. CXR Traumatic Inuries: 1. Left rectus abdominis Operations: 1. none Care Plan: 2. Admit to [facility] 3. Serial hemoglobin checks 4. Current diet order: NPO for now with IVF 5. Pain orders: tylenol, tramadol 6. Bowel regimen: colace Consulted Services and recs: 1. Internal medicine Dispo Plannin. Admit to [facility] Prophylaxis and Protocols: 1. BMI > 40?: No. 2. Appropriate DVT PPx: chemoppx contraindicated. SCDs only. 3. Ulcer PPx indicated: yes home med. 4. Vit D level monitoring if > 65 yo: Yes. 5. ARC monitoring indicated? No. Incidentals: 1. none Follow Up Needs: 1. TBD Assessment and plan discussed with attending: Dr Peterson SIGNATURE: Chidi Musa MD PATIENT NAME: Zion Marsh DATE: June 23, 2019 TIME: 2:04 AM Pager: [phone] Phone: Trauma Service Pager: For questions or concerns Mon-Thu 6a-5p please page [phone]. After 5pm and on Weekends and Holidays, please page [phone] if in ICU or [phone] if on RNF. Normal [facility] Hemogramon 06-23-2019 Erythrocyte distribution width (RBC) [Ratio] 13.1 % Normal 11.6-14.4 [facility] Comment on above: Performed By: #### C BC1 #### [facility] [address] [place] [address] Hematocrit (Bld) [Volume fraction] 33.8 % Low 40.1-51.0 [facility] Comment on above: Performed By: #### C BC1 #### [facility] [address] [place] [address] Hemoglobin (Bld) [Mass/Vol] 10.8 g/dL Low 13.7-17.5 [facility] Comment on above: Performed By: #### C BC1 #### [facility] [address] [place] [address] MCH (RBC) [Entitic mass] 29.5 pg Normal 25.7-32.2 [facility] Comment on above: Performed By: #### C BC1 #### [facility] [address] [place], [place] [address] MCHC (RBC) [Mass/Vol] 32.0 % Low 32.3-36.5 [facility] Comment on above: Performed By: #### C BC1 #### [facility] [address] [address] MCV (RBC) [Entitic vol] 92.3 fL Normal 83.2-95.6 [facility] Comment on above: Performed By: #### C BC1 #### [facility] [address] [place], [place] [address] Platelet mean volume (Bld) [Entitic vol] 9.9 fL Normal 8.7-12.0 [facility] Comment on above: Performed By: #### C BC1 #### [facility] [address] [place], [place] [address] Platelets (Bld) [#/Vol] 142 thou/cmm Normal 141-365 [facility] Comment on above: Performed By: #### C BC1 #### [facility] [address] [place] [address] RBC (Bld) [#/Vol] 3.66 mil/cmm Low 4.63-6.08 [facility] Comment on above: Performed By: #### C BC1 #### [facility] [address] [place] [address] RDW SD 44.4 fl Normal 36.1-45.8 [facility] Comment on above: Performed By: #### C BC1 #### [facility] [address] [place], [place] [address] WBC (Bld) [#/Vol] 8.28 thou/cmm Normal 4.23-9.07 [facility] Comment on above: Performed By: #### C BC1 #### [facility] [address] [place] [address] Hemogram/Diffon 06-23-2019 Abs Immature Grans 0.02 thou/cmm Normal 0.00-0.05 [facility] Comment on above: Performed By: #### C BCD1 #### [facility] [address] [place] [address] Abs Neut (ANC) 5.59 thou/cmm High 1.78-5.38 [facility] Comment on above: Performed By: #### C BCD1 #### [facility] [address] [place] [address] Abs. Baso 0.03 thou/cmm Normal 0.01-0.08 [facility] Comment on above: Performed By: #### C BCD1 #### [facility] [address] [place], [place] [address] Abs. [place] 0.49 thou/cmm Normal 0.30-0.82 [facility] Comment on above: Performed By: #### C BCD1 #### [facility] [address] [place] [address] Basophils/100 WBC (Bld) 0.4 % Normal [facility] Comment on above: Performed By: #### C BCD1 #### [facility] [address] [place], [place] [address] Eosinophils (Bld) [#/Vol] 0.11 thou/cmm Normal 0.04-0.54 [facility] Comment on above: Performed By: #### C BCD1 #### [facility] [address] [place] [address] Eosinophils/100 WBC (Bld) 1.5 % Normal [facility] Comment on above: Performed By: #### C BCD1 #### [facility] [address] [place] [address] Erythrocyte distribution width (RBC) [Ratio] 13.1 % Normal 11.6-14.4 [facility] Comment on above: Performed By: #### C BCD1 #### [facility] [address] [place] [address] Hematocrit (Bld) [Volume fraction] 34.1 % Low 40.1-51.0 [facility] Comment on above: Performed By: #### C BCD1 #### [facility] [address] [place] [address] Hemoglobin (Bld) [Mass/Vol] 10.9 g/dL Low 13.7-17.5 [facility] Comment on above: Performed By: #### C BCD1 #### [facility] [address] [place] [address] Immature Grans 0.30 % Normal [facility] Comment on above: Performed By: #### C BCD1 #### [facility] [address] [place] [address] Lymphocytes (Bld) [#/Vol] 0.93 thou/cmm Normal 0.84-2.85 [facility] Comment on above: Performed By: #### C BCD1 #### [facility] [address] [place], [place] [address] Lymphocytes/100 WBC (Bld) 13.0 % Normal [facility] Comment on above: Performed By: #### C BCD1 #### [facility] [address] [place], [place] [address] MCH (RBC) [Entitic mass] 29.2 pg Normal 25.7-32.2 [facility] Comment on above: Performed By: #### C BCD1 #### [facility] [address] [place], [place] [address] MCHC (RBC) [Mass/Vol] 32.0 % Low 32.3-36.5 [facility] Comment on above: Performed By: #### C BCD1 #### [facility] [address] [place], [place] [address] MCV (RBC) [Entitic vol] 91.4 fL Normal 83.2-95.6 [facility] Comment on above: Performed By: #### C BCD1 #### [facility] [address] [place], [place] [address] Monocytes/100 WBC (Bld) 6.8 % Normal [facility] Comment on above: Performed By: #### C BCD1 #### [facility] [address] [place], [place] [address] Platelet mean volume (Bld) [Entitic vol] 10.1 fL Normal 8.7-12.0 [facility] Comment on above: Performed By: #### C BCD1 #### [facility] [address] [place], [place] [address] Platelets (Bld) [#/Vol] 142 thou/cmm Normal 141-365 [facility] Comment on above: Performed By: #### C BCD1 #### [facility] [address] [place], [place] [address] RBC (Bld) [#/Vol] 3.73 mil/cmm Low 4.63-6.08 [facility] Comment on above: Performed By: #### C BCD1 #### [facility] [address] [place], [place] [address] RDW SD 43.3 fl Normal 36.1-45.8 [facility] Comment on above: Performed By: #### C BCD1 #### [facility] [address] [place], [place] [address] Seg Neutrophil 78.0 % Normal [facility] Comment on above: Performed By: #### C BCD1 #### [facility] [address] [place], [place] [address] WBC (Bld) [#/Vol] 7.17 thou/cmm Normal 4.23-9.07 [facility] Comment on above: Performed By: #### C BCD1 #### [facility] [address] [place], [place] [address] MDRD GFRon 06-23-2019 GFR/1.73 sq M predicted among non-blacks MDRD (S/P/Bld) [Vol rate/Area] mL/min/{1.73_m2} Normal >60mL/min/1.7 3m2 [facility] Comment on above: Result Comment: If t he patient is , multiply the result by 1.210. Performed By: #### G FR #### [facility] [address] [place], [place] [address] Vital Signs Date Time Vital Sign Value Performing Clinician Facility 01-04-2025 19:00-0400 Body temperature 103 [degF] Dr. Abe Gilmore MD Work Phone: [facility] 01-04-2025 19:00-0400 Diastolic blood pressure 61 mm[Hg] Dr. Abe Gilmore MD Work Phone: [facility] 01-04-2025 19:00-0400 Heart rate 74 /min Dr. Abe Gilmore MD Work Phone: [facility] 01-04-2025 19:00-0400 Respiratory rate 32 /min Dr. Abe Gilmore MD Work Phone: [facility] 01-04-2025 19:00-0400 SaO2% (BldA) [Mass fraction] 94 % Dr. Abe Gilmore MD Work Phone: 1(484)351-550421 [place] [address] 01-04-2025 19:00-0400 Systolic blood pressure 153 mm[Hg] Dr. Abe Gilmore MD Work Phone: 7(368)585-134121 [place] [address] 01-04-2025 16:10-0400 Body mass index (BMI) [Ratio] 32 kg/m2 Dr. Abe Gilmore MD Work Phone: 0(271)798-831421 [place] [address] 01-04-2025 16:10-0400 Body weight 101.[address] Abe Gilmore MD Work Phone: 8(138)835-961721 [place] [address] 01-04-2025 14:29-0400 Body height 177.[address] Abe Gilmore MD Work Phone: 0(675)054-978721 [place] [address] 12-27-2024 15:35-0400 Body temperature 97.3 [degF] Dr. Abe Gilmore MD Work Phone: 6(998)519-612721 [place] [address] 12-27-2024 15:35-0400 Diastolic blood pressure 80 mm[Hg] Dr. Abe Gilmore MD Work Phone: 0(153)395-174121 [place] [address] 12-27-2024 15:35-0400 Heart rate 53 /min Dr. Abe Gilmore MD Work Phone: 7(316)945-265721 [place] [address] 12-27-2024 15:35-0400 Respiratory rate 18 /min Dr. Abe Gilmore MD Work Phone: 5(054)230-370221 [place] [address] 12-27-2024 15:35-0400 SaO2% (BldA) [Mass fraction] 98 % Dr. Abe Gilmore MD Work Phone: 9(301)880-179821 [place] [address] 12-27-2024 15:35-0400 Systolic blood pressure 137 mm[Hg] Dr. Abe Gilmore MD Work Phone: 7(399)379-664221 [place] [address] 12-27-2024 08:01-0400 Inhaled oxygen flow rate 1 L/min Dr. Abe Gilmore MD Work Phone: 0(766)166-509321 [place] [address] 12-25-2024 22:21-0400 Body mass index (BMI) [Ratio] 32.6 kg/m2 Dr. Abe Gilmore MD Work Phone: 5(048)898-195621 [place] [address] 12-25-2024 22:21-0400 Body weight 103.[address] Abe Gilmore MD Work Phone: 9(175)350-108821 [place] [address] 12-25-2024 21:23-0400 Body temperature 101.4 [degF] Dr. Abe Gilmore MD Work Phone: 2(049)850-928021 [place] [address] 12-25-2024 21:23-0400 Diastolic blood pressure 91 mm[Hg] Dr. Abe Gilmore MD Work Phone: 3(375)724-144021 [place] [address] 12-25-2024 21:23-0400 Heart rate 66 /min Dr. Abe Gilmore MD Work Phone: 7(339)460-879821 [place] [address] 12-25-2024 21:23-0400 Respiratory rate 26 /min Dr. Abe Gilmore MD Work Phone: 7(222)952-311221 [place] [address] 12-25-2024 21:23-0400 SaO2% (BldA) [Mass fraction] 93 % Dr. Abe Gilmore MD Work Phone: 7(387)509-734321 [place] [address] 12-25-2024 21:23-0400 Systolic blood pressure 138 mm[Hg] Dr. Abe Gilmore MD Work Phone: 3(754)868-005521 [place] [address] 12-25-2024 20:42-0400 Body mass index (BMI) [Ratio] 32.7 kg/m2 Dr. Abe Gilmore MD Work Phone: 3(541)579-511021 [place] [address] 12-25-2024 20:42-0400 Body weight 103.[address] Abe Gilmore MD Work Phone: 3(130)723-722121 [place] [address] 12-25-2024 20:08-0400 Body height 177.[address] Abe Gilmore MD Work Phone: 9(263)276-974821 [place] [address] 12-25-2024 13:26-0400 Body temperature 101 [degF] Dr. Abe Gilmore MD Work Phone: 0(299)803-267221 [place] [address] 12-25-2024 13:26-0400 Diastolic blood pressure 59 mm[Hg] Dr. Abe Gilmore MD Work Phone: 4(001)910-048421 [place] [address] 12-25-2024 13:26-0400 Heart rate 74 /min Dr. Abe Gilmore MD Work Phone: 6(159)688-212021 [place] [address] 12-25-2024 13:26-0400 Respiratory rate 25 /min Dr. Abe Gilmore MD Work Phone: 3(515)123-032421 [place] [address] 12-25-2024 13:26-0400 SaO2% (BldA) [Mass fraction] 95 % Dr. Abe Gilmore MD Work Phone: 6(846)281-134221 [place] [address] 12-25-2024 13:26-0400 Systolic blood pressure 131 mm[Hg] Dr. Abe Gilmore MD Work Phone: 4(458)210-251721 [place] [address] 12-25-2024 10:04-0400 Body height 177.[address] Abe Gilmore MD Work Phone: 1(326)204-218021 [place] [address] 12-25-2024 10:04-0400 Body mass index (BMI) [Ratio] 32.5 kg/m2 Dr. Abe Gilmore MD Work Phone: 3(647)903-956621 [place] [address] 12-25-2024 10:04-0400 Body weight [address] Abe Gilmore MD Work Phone: 3(357)678-360021 [place] [address] 12-16-2024 10:03-0400 Body temperature 97.7 [degF] Dr. Abe Gilmore MD Work Phone: 1(507)809-330921 [place] [address] 12-16-2024 10:03-0400 Diastolic blood pressure 73 mm[Hg] Dr. Abe Gilmore MD Work Phone: 7(374)126-953421 [place] [address] 12-16-2024 10:03-0400 Heart rate 62 /min Dr. Abe Gilmore MD Work Phone: 6(565)982-238421 [place] [address] 12-16-2024 10:03-0400 Respiratory rate 18 /min Dr. Abe Gilmore MD Work Phone: 3(379)590-844221 [place] [address] 12-16-2024 10:03-0400 SaO2% (BldA) [Mass fraction] 64 % Dr. Abe Gilmore MD Work Phone: 0(703)786-317121 [place] [address] 12-16-2024 10:03-0400 Systolic blood pressure 128 mm[Hg] Dr. Abe Gilmore MD Work Phone: 0(920)382-549621 [place] [address] 12-16-2024 07:58-0400 Body mass index (BMI) [Ratio] 33.2 kg/m2 Dr. Abe Gilmore MD Work Phone: 3(255)807-269821 [place] [address] 12-16-2024 07:58-0400 Body weight [address] Abe Gilmore MD Work Phone: 1(926)463-344221 [place] [address] 12-14-2024 11:47-0400 Body temperature 97.2 [degF] Dr. Abe Gilmore MD Work Phone: 7(717)742-850221 [place] [address] 12-14-2024 11:47-0400 Diastolic blood pressure 63 mm[Hg] Dr. Abe Gilmore MD Work Phone: 5(866)626-837321 [place] [address] 12-14-2024 11:47-0400 Heart rate 57 /min Dr. Abe Gilmore MD Work Phone: 6(646)001-929921 [place] [address] 12-14-2024 11:47-0400 Respiratory rate 16 /min Dr. Abe Gilmore MD Work Phone: 5(658)873-552021 [place] [address] 12-14-2024 11:47-0400 SaO2% (BldA) [Mass fraction] 94 % Dr. Abe Gilmore MD Work Phone: 9(843)266-781721 [place] [address] 12-14-2024 11:47-0400 Systolic blood pressure 146 mm[Hg] Dr. Abe Gilmore MD Work Phone: 3(073)395-938321 [place] [address] 12-14-2024 11:15-0400 Inhaled oxygen flow rate 2 L/min Dr. Abe Gilmore MD Work Phone: 1(882)529-689421 [place] [address] 12-14-2024 09:14-0400 Body height 177.[address] Abe Gilmore MD Work Phone: 3(801)180-585721 [place] [address] 12-14-2024 09:14-0400 Body mass index (BMI) [Ratio] 32.5 kg/m2 Dr. Abe Gilmore MD Work Phone: 9(063)729-647121 [place] [address] 12-14-2024 09:14-0400 Body weight [address] Abe Gilmore MD Work Phone: 7(073)469-473121 [place] [address] 11-24-2024 09:35-0400 Body temperature 97.9 [degF] Dr. Abe Gilmore MD Work Phone: 3(335)966-368521 [place] [address] 11-24-2024 09:35-0400 Diastolic blood pressure 76 mm[Hg] Dr. Abe Gilmore MD Work Phone: 9(372)423-366421 [place] [address] 11-24-2024 09:35-0400 Heart rate 65 /min Dr. Abe Gilmore MD Work Phone: 5(177)530-017221 [place] [address] 11-24-2024 09:35-0400 Respiratory rate 16 /min Dr. Abe Gilmore MD Work Phone: 3(520)889-000321 [place] [address] 11-24-2024 09:35-0400 SaO2% (BldA) [Mass fraction] 100 % Dr. Abe Gilmore MD Work Phone: 1(031)786-511721 [place] [address] 11-24-2024 09:35-0400 Systolic blood pressure 112 mm[Hg] Dr. Abe Gilmore MD Work Phone: 3(850)676-625621 [place] [address] 11-24-2024 07:20-0400 Body mass index (BMI) [Ratio] 33.7 kg/m2 Dr. Abe Gilmore MD Work Phone: 1(339)339-351221 [place] [address] 11-24-2024 07:20-0400 Body weight 107.[address] Abe Gilmore MD Work Phone: 9(411)720-671521 [place] [address] 10-26-2024 22:03-0400 Body temperature 98 [degF] Dr. Abe Gilmore MD Work Phone: 9(300)513-292221 [place] [address] 10-26-2024 22:03-0400 Diastolic blood pressure 67 mm[Hg] Dr. Abe Gilmore MD Work Phone: 5(712)839-783921 [place] [address] 10-26-2024 22:03-0400 Heart rate 52 /min Dr. Abe Gilmore MD Work Phone: 1(194)582-363521 [place] [address] 10-26-2024 22:03-0400 Respiratory rate 16 /min Dr. Abe Gilmore MD Work Phone: 6(828)523-478021 [place] [address] 10-26-2024 22:03-0400 SaO2% (BldA) [Mass fraction] 98 % Dr. Abe Gilmore MD Work Phone: 0(613)472-141821 [place] [address] 10-26-2024 22:03-0400 Systolic blood pressure 156 mm[Hg] Dr. Abe Gilmore MD Work Phone: 0(884)610-868221 [place] [address] 10-26-2024 20:27-0400 Body height 177.[address] Abe Gilmore MD Work Phone: 5(104)137-413821 [place] [address] 10-26-2024 20:27-0400 Body mass index (BMI) [Ratio] 32.3 kg/m2 Dr. Abe Gilmore MD Work Phone: 1(126)634-016221 [place] [address] 10-26-2024 20:27-0400 Body weight 102.[address] Abe Gilmore MD Work Phone: 9(816)241-000221 [place] [address] 10-26-2024 17:07-0400 Body temperature 98 [degF] Dr. Abe Gilmore MD Work Phone: 0(537)701-032121 [place] [address] 10-26-2024 17:07-0400 Diastolic blood pressure 78 mm[Hg] Dr. Abe Gilmore MD Work Phone: 3(059)700-049921 [place] [address] 10-26-2024 17:07-0400 Heart rate 66 /min Dr. Abe Gilmore MD Work Phone: 1(104)702-182421 [place] [address] 10-26-2024 17:07-0400 Respiratory rate 12 /min Dr. Abe Gilmore MD Work Phone: 4(523)632-361721 [place] [address] 10-26-2024 17:07-0400 SaO2% (BldA) [Mass fraction] 99 % Dr. Abe Gilmore MD Work Phone: 8(942)838-198721 [place] [address] 10-26-2024 17:07-0400 Systolic blood pressure 154 mm[Hg] Dr. Abe Gilmore MD Work Phone: 7(582)293-114921 [place] [address] 10-26-2024 17:03-0400 Body mass index (BMI) [Ratio] 33 kg/m2 Dr. Abe Gilmore MD Work Phone: [facility] 10-26-2024 17:03-0400 Body weight 104.[address] Abe Gilmore MD Work Phone: [facility] 10-21-2024 08:31-0400 Body mass index (BMI) [Ratio] 33.43 kg/m2 Abe Gilmore MD Work Phone: [facility] 10-21-2024 08:31-0400 Body weight 105.69 kg Abe Gilmore MD Work Phone: [facility] 10-21-2024 08:31-0400 Diastolic blood pressure 64 mm[Hg] Abe Gilmore MD Work Phone: [facility] 10-21-2024 08:31-0400 Heart rate 58 /min Abe Gilmore MD Work Phone: [facility] 10-21-2024 08:31-0400 Respiratory rate 14 /min Abe Gilmore MD Work Phone: [facility] 10-21-2024 08:31-0400 SaO2% (BldA) [Mass fraction] 98 % Abe Gilmore MD Work Phone: [facility] 10-21-2024 08:31-0400 Systolic blood pressure 118 mm[Hg] Abe Gilmore MD Work Phone: [facility] 09-02-2024 09:54-0500 Body mass index (BMI) [Ratio] 34.29 kg/m2 Lm Urbina MD Work Phone: [facility] 09-02-2024 09:54-0500 Body temperature 97.11 [degF] Lm Urbina MD Work Phone: [facility] 09-02-2024 09:54-0500 Body weight 108.4 kg Lm Urbina MD Work Phone: [facility] 09-02-2024 09:54-0500 Diastolic blood pressure 72 mm[Hg] Lm Urbina MD Work Phone: [facility] 09-02-2024 09:54-0500 Heart rate 70 /min Lm Urbina MD Work Phone: [facility] 09-02-2024 09:54-0500 Respiratory rate 21 /min Lm Urbina MD Work Phone: [facility] 09-02-2024 09:54-0500 SaO2% (BldA) [Mass fraction] 98 % Lm Urbina MD Work Phone: [facility] 09-02-2024 09:54-0500 Systolic blood pressure 168 mm[Hg] Lm Urbina MD Work Phone: [facility] 04-22-2024 11:11-0400 Diastolic blood pressure 64 mm[Hg] Abe Gilmore MD Work Phone: [facility] 04-22-2024 11:11-0400 Systolic blood pressure 130 mm[Hg] Abe Gilmore MD Work Phone: [facility] 04-22-2024 10:31-0400 Body height 177.8 cm Abe Gilmore MD Work Phone: [facility] 04-22-2024 10:31-0400 Body mass index (BMI) [Ratio] 33.09 kg/m2 Abe Gilmore MD Work Phone: [facility] 04-22-2024 10:31-0400 Body weight 104.6 kg Abe Gilmore MD Work Phone: [facility] 04-22-2024 10:31-0400 Heart rate 59 /min Abe Gilmore MD Work Phone: [facility] 02-03-2024 16:35-0400 Body mass index (BMI) [Ratio] 31.76 kg/m2 Lm Urbina MD Work Phone: [facility] 02-03-2024 16:35-0400 Body temperature 96.8 [degF] Lm Urbina MD Work Phone: [facility] 02-03-2024 16:35-0400 Body weight 100.4 kg Lm Urbina MD Work Phone: [facility] 02-03-2024 16:35-0400 Diastolic blood pressure 64 mm[Hg] Lm Urbina MD Work Phone: [facility] 02-03-2024 16:35-0400 Heart rate 85 /min Lm Urbina MD Work Phone: [facility] 02-03-2024 16:35-0400 Respiratory rate 21 /min Lm Urbina MD Work Phone: [facility] 02-03-2024 16:35-0400 SaO2% (BldA) [Mass fraction] 98 % Lm Urbina MD Work Phone: [facility] 02-03-2024 16:35-0400 Systolic blood pressure 110 mm[Hg] Lm Urbina MD Work Phone: [facility] 12-31-2023 10:58-0400 Body height 177.8 cm Gerson Young DO Work Phone: [facility] 12-31-2023 10:58-0400 Body mass index (BMI) [Ratio] 31.95 kg/m2 Gerson Whitealfitnile DO Work Phone: [facility] 12-31-2023 10:58-0400 Body weight 101 kg Gerson Young DO Work Phone: [facility] 12-31-2023 10:58-0400 Diastolic blood pressure 48 mm[Hg] Gerson Amnelsy DO Work Phone: [facility] 12-31-2023 10:58-0400 Heart rate 55 /min Gerson Young DO Work Phone: [facility] 12-31-2023 10:58-0400 SaO2% (BldA) [Mass fraction] 97 % Gerson Young DO Work Phone: [facility] 12-31-2023 10:58-0400 Systolic blood pressure 108 mm[Hg] Gerson Damiandorisnile SALEH Work Phone: [facility] 06-24-2023 14:25-0500 Body weight 101.2 kg Carolina Reinaldo LIFTER/DRIVER.FORMING DEPARTMENT END FINDER Work Phone: [facility] 06-24-2023 14:25-0500 Diastolic blood pressure 56 mm[Hg] Carolina Gutiérrez LIFTER/DRIVER.FORMING DEPARTMENT END FINDER Work Phone: [facility] 06-24-2023 14:25-0500 Heart rate 54 /min Carolina Gutiérrez LIFTER/DRIVER.FORMING DEPARTMENT END FINDER Work Phone: [facility] 06-24-2023 14:25-0500 SaO2% (BldA) [Mass fraction] 98 % Carolina Gutiérrez LIFTER/DRIVER.FORMING DEPARTMENT END FINDER Work Phone: [facility] 06-24-2023 14:25-0500 Systolic blood pressure 120 mm[Hg] Carolinakatie Gutiérrez LIFTER/DRIVER.FORMING DEPARTMENT END FINDER Work Phone: [facility] 05-19-2023 08:03-0400 Body height 180.3 cm Abe Gilmore MD Work Phone: [facility] 05-19-2023 08:03-0400 Body weight 101.52 kg Abe Gilmore MD Work Phone: [facility] 05-19-2023 08:03-0400 Diastolic blood pressure 50 mm[Hg] Abe Gilmore MD Work Phone: [facility] 05-19-2023 08:03-0400 Heart rate 53 /min Abe Gilmore MD Work Phone: [facility] 05-19-2023 08:03-0400 SaO2% (BldA) [Mass fraction] 97 % Abe Gilmore MD Work Phone: [facility] 05-19-2023 08:03-0400 Systolic blood pressure 106 mm[Hg] Abe Gilmore MD Work Phone: [facility] 04-24-2023 10:24-0400 Body weight 100.25 kg Abe Gilmore MD Work Phone: [facility] [facility] 04-24-2023 10:24-0400 Diastolic blood pressure 65 mm[Hg] Abe Gilmore MD Work Phone: [facility] 04-24-2023 10:24-0400 Heart rate 55 /min Abe Gilmore MD Work Phone: [facility] 04-24-2023 10:24-0400 SaO2% (BldA) [Mass fraction] 98 % Abe Gilmore MD Work Phone: [facility] 04-24-2023 10:24-0400 Systolic blood pressure 118 mm[Hg] Abe Gilmore MD Work Phone: [facility] 10-22-2022 09:38-0400 Body height 180.3 cm Abe Gilmore MD Work Phone: [facility] 10-22-2022 09:38-0400 Body weight 101.15 kg Abe Gilmore MD Work Phone: [facility] 10-22-2022 09:38-0400 Diastolic blood pressure 56 mm[Hg] Abe Gilmore MD Work Phone: [facility] 10-22-2022 09:38-0400 Heart rate 56 /min Abe Gilmore MD Work Phone: [facility] 10-22-2022 09:38-0400 SaO2% (BldA) [Mass fraction] 97 % Abe Gilmore MD Work Phone: [facility] 10-22-2022 09:38-0400 Systolic blood pressure 120 mm[Hg] Abe Gilmore MD Work Phone: [facility] 07-24-2022 10:38-0500 Body temperature 97.81 [degF] Perri Almeida APRN.FORMING DEPARTMENT END FINDER Work Phone: [facility] 07-24-2022 10:38-0500 Body weight 102.24 kg Perri Almeida APRN.FORMING DEPARTMENT END FINDER Work Phone: [facility] 07-24-2022 10:38-0500 Diastolic blood pressure 64 mm[Hg] Perri Almeida APRN.FORMING DEPARTMENT END FINDER Work Phone: [facility] 07-24-2022 10:38-0500 Heart rate 71 /min Perri Almeida APRN.FORMING DEPARTMENT END FINDER Work Phone: [facility] 07-24-2022 10:38-0500 Respiratory rate 18 /min Perri Almeida APRN.FORMING DEPARTMENT END FINDER Work Phone: [facility] 07-24-2022 10:38-0500 SaO2% (BldA) [Mass fraction] 97 % Perri Almeida APRN.FORMING DEPARTMENT END FINDER Work Phone: [facility] 07-24-2022 10:38-0500 Systolic blood pressure 128 mm[Hg] Perri Almeida APRN.FORMING DEPARTMENT END FINDER Work Phone: [facility] 04-23-2022 10:38-0400 Body height 180.3 cm Abe Gilmore MD Work Phone: [facility] 04-23-2022 10:38-0400 Body weight 108.86 kg Abe Gilmore MD Work Phone: [facility] 04-23-2022 10:38-0400 Diastolic blood pressure 58 mm[Hg] Abe Gilmore MD Work Phone: [facility] 04-23-2022 10:38-0400 Heart rate 59 /min Abe Gilmore MD Work Phone: [facility] 04-23-2022 10:38-0400 SaO2% (BldA) [Mass fraction] 97 % Abe Gilmore MD Work Phone: [facility] 04-23-2022 10:38-0400 Systolic blood pressure 128 mm[Hg] Abe Gilmore MD Work Phone: [facility] 12-21-2021 12:06-0400 Body temperature 98.1 [degF] Dr. Abe Gilmore Work Phone: [facility] Work Phone: 12-21-2021 12:06-0400 Diastolic blood pressure 57 mm[Hg] Dr. Abe Gilmore Work Phone: [facility] Work Phone: 12-21-2021 12:06-0400 Heart rate 66 /min Dr. Abe Gilmore Work Phone: [facility] Work Phone: 12-21-2021 12:06-0400 Respiratory rate 20 /min Dr. Abe Gilmore Work Phone: [facility] Work Phone: 12-21-2021 12:06-0400 SaO2% (BldA) [Mass fraction] 97 % Dr. Abe Gilmore Work Phone: [facility] Work Phone: 12-21-2021 12:06-0400 Systolic blood pressure 124 mm[Hg] Dr. Abe Gilmore Work Phone: [facility] Work Phone: 12-21-2021 07:26-0400 Inhaled oxygen flow rate 3 L/min Dr. Abe Gilmore Work Phone: [facility] Work Phone: 12-20-2021 19:14-0400 Body height 177.[address] Abe Gilmore Work Phone: [facility] Work Phone: 12-20-2021 19:14-0400 Body mass index (BMI) [Ratio] 37.1 kg/m2 Dr. Abe Gilmore Work Phone: [facility] Work Phone: 12-20-2021 19:14-0400 Body weight 117.[address] Abe Gilmore Work Phone: [facility] Work Phone: 12-13-2021 13:24-0400 Body temperature 97.5 [degF] [facility] Work Phone: 12-13-2021 13:24-0400 Diastolic blood pressure 92 mm[Hg] [facility] Work Phone: 12-13-2021 13:24-0400 Heart rate 72 /min [facility] Work Phone: 12-13-2021 13:24-0400 Respiratory rate 16 /min [facility] Work Phone: 12-13-2021 13:24-0400 SaO2% (BldA) [Mass fraction] 99 % [facility] Work Phone: 12-13-2021 13:24-0400 Systolic blood pressure 139 mm[Hg] [facility] Work Phone: 12-13-2021 09:57-0400 Body height 177.8 cm [facility] Work Phone: 12-13-2021 09:57-0400 Body mass index (BMI) [Ratio] 33 kg/m2 [facility] Work Phone: 12-13-2021 09:57-0400 Body weight 104.32 kg [facility] Work Phone: 11-19-2021 11:07-0400 Body height 180.3 cm Gerson Young DO Work Phone: [facility] 11-19-2021 11:07-0400 Body weight 106.32 kg Gerson Whitealfitnile DO Work Phone: [facility] 11-19-2021 11:07-0400 Diastolic blood pressure 60 mm[Hg] Gerson Young DO Work Phone: [facility] 11-19-2021 11:07-0400 Heart rate 64 /min Gerson Amalfitnile DO Work Phone: [facility] 11-19-2021 11:07-0400 SaO2% (BldA) [Mass fraction] 97 % Gerson Amnelsy DO Work Phone: [facility] 11-19-2021 11:07-0400 Systolic blood pressure 144 mm[Hg] Gerson Damianfitnile DO Work Phone: [facility] 10-23-2021 09:43-0400 Body weight 108.41 kg Abe Gilmore MD Work Phone: [facility] 10-23-2021 09:43-0400 Diastolic blood pressure 66 mm[Hg] Abe Gilmore MD Work Phone: [facility] 10-23-2021 09:43-0400 Heart rate 62 /min Abe Gilmore MD Work Phone: [facility] 10-23-2021 09:43-0400 Respiratory rate 14 /min Abe Gilmore MD Work Phone: [facility] 10-23-2021 09:43-0400 Systolic blood pressure 134 mm[Hg] Abe Gilmore MD Work Phone: [facility] Encounters Encounter Date Encounter Type Care Provider Facility Start: 01-04-2025 Evaluation and manag ement of inpatient Dr. Abe Gilmore MD Work Phone: [facility] Work Phone: Start: 01-04-2025 Dr. Dennis Guidry MD -Medical Surgical 3 Work Phone: Start: 12-27-2024 Dr. Stan Stein MD - [facility] Work Phone: Start: 12-26-2024 Dr. Stan Stein MD - [facility] Work Phone: Start: 12-25-2024 ambulatory Dennis Guidry Faci lity:[facility] Start: 12-25-2024 End: 12-27-2024 Evaluation and management of inpatient Dr. Dennis Guidry MD -Medical Surgical 3 Work Phone: Start: 12-25-2024 End: 12-27-2024 Dr. Dennis Guidry MD -Medical Surgical 3 Work Phone: Start: 12-25-2024 End: 12-25-2024 Dr. Zain Merlos DO -Emergency Department Work Phone: Start: 12-25-2024 End: 12-25-2024 Emergency department patient visit Dr. Abe Gilmore MD Work Phone: -Emergency Department Work Phone: Start: 12-16-2024 End: 12-16-2024 Dr. Steven Donald MD -Emergency Department Work Phone: Start: 12-16-2024 End: 12-16-2024 Emergency department patient visit Dr. Steven Donald MD -Emergency Department Work Phone: Start: 12-14-2024 End: 12-14-2024 Admission to same day surgery center Dr. Dennis Guidry MD -[facility] Start: 12-14-2024 End: 12-14-2024 Dr. Dennis Guidry MD -[facility] Day [facility] Start: 12-14-2024 End: 12-14-[address] Abe Gilmore MD Work Phone: [facility] Work Phone: Start: 12-08-2024 End: 12-08-2024 Telephone encounter Carolina Gutiérrez APRN.FORMING DEPARTMENT END FINDER Work Phone: Cardiology Start: 11-24-2024 End: 11-24-2024 Dr. Graham Thibodeaux MD -Emergency Department Work Phone: Start: 11-24-2024 End: 11-24-2024 Emergency department patient visit Dr. Graham Thibodeaux MD -Emergency Department Work Phone: Start: 11-09-2024 End: 11-09-2024 Patient encounter procedure Lexis Brown PA-C -[facility] Work Phone: Start: 11-09-2024 End: 11-09-2024 Lexis Brown PA-C -[facility] Work Phone: Start: 11-09-2024 End: 11-09-2024 ambulatory Lexis ELLSWORTH [facility] Start: 10-26-2024 End: 10-26-2024 Evaluation and management of inpatient Dr. Vickie Limon MD -Medical Surgical 3 Work Phone: Start: 10-26-2024 End: 10-26-[address] Abe Gilmore MD Work Phone: [facility] Work Phone: Start: 10-26-2024 End: 10-26-2024 Evaluation and management of inpatient Dr. Vickie Limon MD -Medical Surgical 3 Work Phone: Start: 10-26-2024 Non-patient / Non-visit Dr. Vickie perez MD -[facility] Start: 10-26-2024 End: 10-26-2024 Dr. Vickie Limon MD -Medical Surgical 3 Work Phone: Start: 10-26-2024 End: 10-26-2024 ambulatory Abe Gilmore MD Work Phone: [facility] Comment on above: Mass Start: 10-26-2024 End: 10-26-2024 Emergency department patient visit Dr. Abe Gilmore MD Work Phone: -Emergency Department Work Phone: Start: 10-21-2024 End: 10-21-2024 ambulatory ABE GILMORE Facility:[facility] Start: 10-21-2024 End: 10-21-2024 Patient encounter procedure Abe Gilmore MD Work Phone: [facility] Comment on above: Essential hypertensi on (Primary Dx); Mixed hyperlipidemia; Coronary artery disease involving [place] heart without angina pectoris, unspecified vessel or lesion type; Enlarged thoracic aorta; JOSE (obstructive sleep apnea); Gastroesophageal reflux disease without esophagitis; Medication monitoring encounter; Hyperglycemia Start: 10-13-2024 End: 10-13-2024 ambulatory ABE GILMORE Facility:[facility] Start: 09-02-2024 End: 09-02-2024 ambulatory ABE GILMORE Facility:[facility] Start: 09-02-2024 End: 09-02-2024 Office outpatient visit 15 minutes Lm Urbina MD Work Phone: [facility] Comment on above: Acute right-sided lo w back pain without sciatica (Primary Dx); Recurrent kidney stones Start: 08-01-2024 End: 08-01-[address] [facility] Start: 08-01-2024 End: 08-01-2024 ambulatory [facility] Facility:[facility] Start: 07-11-2024 End: 07-11-2024 Refill Abe Gilmore MD Work Phone: [facility] Comment on above: Refill Request Start: 07-07-2024 End: 07-07-2024 Refill Abe Gilmore MD Work Phone: [facility] Comment on above: Refill Request Start: 05-07-2024 End: 05-07-2024 ambulatory [facility] [place] Work Phone: [facility] Start: 05-07-2024 End: 05-07-2024 Patient encounter procedure [facility] [place] Work Phone: [facility] Start: 04-27-2024 End: 04-27-2024 Refill Abe Gilmore MD Work Phone: [facility] Comment on above: Refill Request Start: 04-22-2024 End: 04-22-2024 [facility] Facility[facility] Start: 04-22-2024 End: 04-22-2024 Patient encounter procedure Abe Gilmore MD Work Phone: [facility] Comment on above: Essential hypertensi on (Primary Dx); Mixed hyperlipidemia; Coronary artery disease involving [place] heart without angina pectoris, unspecified vessel or lesion type; Enlarged thoracic aorta (HCC); JOSE (obstructive sleep apnea); Gastroesophageal reflux disease without esophagitis; Dysmetabolic syndrome; BPH with urinary obstruction; Adjustment disorder with depressed mood; Primary osteoarthritis involving multiple joints; Obesity, Class I, BMI 30-34.9; Prediabetes; Screening for depression; Encounter for screening examination for other mental health and behavioral disorders; Encounter for immunization Start: 04-12-2024 End: 04-12-2024 [facility]ulatory [facility] Start: 04-05-2024 End: 04-06-2024 Telephone encounter Abe Gilmore MD Work Phone: [facility] Comment on above: Lab Orders Start: 02-03-2024 End: 02-04-2024 ambulatory ABE GILMORE Facility:[facility] Start: 02-03-2024 End: 02-03-2024 Patient encounter procedure Lm Urbina MD Work Phone: [facility] Comment on above: Laceration of right knee, initial encounter (Primary Dx) Start: 02-03-2024 End: 02-03-2024 Emergency department patient visit Ed Physician Provider Facility:[facility] Start: 12-31-2023 End: 12-31-2023 [facility] Start: 12-31-2023 End: 12-31-2023 Patient encounter procedure Gerson Young DO Work Phone: Cardiology Comment on above: Coronary artery dise ase involving [place] heart without angina pectoris, unspecified vessel or lesion type (Primary Dx); Syncope, unspecified syncope type; Enlarged thoracic aorta (HCC); Essential hypertension; Mixed hyperlipidemia; Shortness of breath; JOSE (obstructive sleep apnea) Start: 11-17-2023 Telephone encounter Carolina Gutiérrez APRN.FORMING DEPARTMENT END FINDER Work Phone: Cardiology Start: 11-10-2023 Telephone encounter Abe Gilmore MD Work Phone: [facility] [place] Comment on above: Results Start: 10-20-2023 End: 10-20-2023 [facility] Work Phone: Start: 10-20-2023 End: 10-20-2023 Patient encounter procedure [facility] Work Phone: Start: 06-24-2023 End: 06-24-2023 Office outpatient visit 15 minutes Carolina Gutiérrez APRN.FORMING DEPARTMENT END FINDER Work Phone: Cardiology Comment on above: Coronary artery dise ase involving [place] heart without angina pectoris, unspecified vessel or lesion type (Primary Dx); Syncope, unspecified syncope type; Enlarged thoracic aorta (HCC); Essential hypertension; Mixed hyperlipidemia Start: 06-01-2023 End: 06-01-2023 ambulatory [facility] Work Phone: Start: 06-01-2023 End: 06-01-2023 [facility] Start: 05-19-2023 End: 05-19-2023 Patient encounter procedure Abe Gilmore MD Work Phone: [facility] Comment on above: JOSE (obstructive sle ep apnea) (Primary Dx); Coronary artery disease involving [place] heart without angina pectoris, unspecified vessel or lesion type; Mixed hyperlipidemia; Enlarged thoracic aorta (HCC); Essential hypertension; Dysmetabolic syndrome; BPH with urinary obstruction; Hyperglycemia Start: 04-24-2023 End: 04-24-2023 Patient encounter procedure Abe Gilmore MD Work Phone: [facility] Comment on above: Essential hypertensi on (Primary Dx); BPH with urinary obstruction; Gastroesophageal reflux disease without esophagitis; Encounter for immunization; Coronary artery disease involving [place] heart without angina pectoris, unspecified vessel or lesion type; Enlarged thoracic aorta (HCC); Mixed hyperlipidemia; JOSE (obstructive sleep apnea); Dysmetabolic syndrome; Adjustment disorder with depressed mood Start: 04-17-2023 Telephone encounter Abe Gilmore MD Work Phone: [facility] Comment on above: Results Start: 04-02-2023 Telephone encounter Abe Gilmore MD Work Phone: [facility] Comment on above: Orders Start: 02-09-2023 End: 02-09-2023 Patient encounter procedure [facility] Work Phone: Start: 10-28-2022 Refill Abe Gilmore MD Work Phone: [facility] Comment on above: Refill Request Start: 10-22-2022 End: 10-22-2022 Patient encounter procedure Abe Gilmore MD Work Phone: [facility] Comment on above: Coronary artery dise ase involving [place] heart without angina pectoris, unspecified vessel or lesion type (Primary Dx); Enlarged thoracic aorta (HCC); Mixed hyperlipidemia; Essential hypertension; JOSE (obstructive sleep apnea); Gastroesophageal reflux disease without esophagitis; BPH with urinary obstruction; Dysmetabolic syndrome; Adjustment disorder with depressed mood; Primary osteoarthritis involving multiple joints; Hyperglycemia; Vitamin D deficiency Start: 10-13-2022 End: 10-13-2022 ambulatory [facility] Work Phone: Start: 10-13-2022 End: 10-13-2022 Patient encounter procedure [facility] Start: 07-24-2022 End: 07-24-2022 Patient encounter procedure Perri Almeida APRN.FORMING DEPARTMENT END FINDER Work Phone: [facility] Comment on above: Ringworm (Primary Dx ) Start: 07-07-2022 Refill Abe Gilmore MD Work Phone: [facility] Comment on above: Refill Request Start: 05-30-2022 End: 05-30-2022 ambulatory [facility] Work Phone: Start: 05-30-2022 End: 05-30-2022 [facility] Start: 05-29-2022 Telephone encounter Abe Gilmore MD Work Phone: [facility] Comment on above: Patient Question; Me dication Problem Start: 04-29-2022 Refill Abe Gilmore MD Work Phone: [facility] Comment on above: Refill Request Start: 04-23-2022 End: 04-23-2022 Patient encounter procedure Abe Gilmore MD Work Phone: [facility] Comment on above: Coronary artery dise ase involving [place] heart without angina pectoris, unspecified vessel or lesion type (Primary Dx); Encounter for immunization; Enlarged thoracic aorta (HCC); Essential hypertension; Mixed hyperlipidemia; JOSE (obstructive sleep apnea); Gastroesophageal reflux disease without esophagitis; Umbilical hernia without obstruction and without gangrene; BPH with urinary obstruction; Adjustment disorder with depressed mood; Iron deficiency anemia, unspecified iron deficiency anemia type Start: 04-16-2022 Telephone encounter Abe Gilomre MD Work Phone: [facility] Comment on above: Appointment Start: 04-03-2022 Telephone encounter Destiny edmonds APRN.FORMING DEPARTMENT END FINDER Work Phone: [facility] Comment on above: Results Start: 03-19-2022 End: 03-19-[address] Abe Gilmore Work Phone: [facility] Work Phone: Start: 03-19-2022 End: 03-19-[address] Abe Gilmore Work Phone: [facility] Start: 01-10-2022 Telephone encounter Destiny edmonds LIFTER/DRIVER.FORMING DEPARTMENT END FINDER Work Phone: [facility] Comment on above: Results Start: 01-03-2022 Telephone encounter Destiny edmonds LIFTER/DRIVER.FORMING DEPARTMENT END FINDER Work Phone: [facility] Comment on above: Results Start: 12-26-2021 Telephone encounter Abe Gilmore MD Work Phone: [facility] Comment on above: Request for Lab Orde rs Start: 12-21-2021 Non-patient / Non-visit Dr. Aurora Gilmore Work Phone: [facility] Start: 12-20-2021 Non-patient / Non-visit Dr. Aurora Gilmore Work Phone: [facility] Start: 12-20-2021 Telephone encounter Gerson Young DO Work Phone: Cardiology Comment on above: Cardiac Clearance ([facility]) Start: 12-20-2021 End: 12-21-2021 Evaluation and management of inpatient Dr. Abe Gilmore Work Phone: [facility] 3 Start: 12-19-2021 Telephone encounter Abe Gilmore MD Work Phone: [facility] Comment on above: Total Hip Replacemen t tomorrow Start: 12-17-2021 Telephone encounter Abe Gilmore MD Work Phone: [facility] Comment on above: Results Start: 12-13-2021 End: 12-13-2021 Emergency department patient visit [facility] Start: 11-19-2021 End: 11-19-2021 Patient encounter procedure Gerson Young Work Phone: Cardiology Comment on above: Coronary artery dise ase involving [place] heart without angina pectoris, unspecified vessel or lesion type (Primary Dx); Enlarged thoracic aorta (HCC); Shortness of breath; Syncope, unspecified syncope type Start: 10-23-2021 End: 10-23-2021 Patient encounter procedure Abe Gilmore MD Work Phone: [facility] Comment on above: Enlarged thoracic ao rta (HCC) (Primary Dx); Essential hypertension; BPH with urinary obstruction; JOSE (obstructive sleep apnea); Gastroesophageal reflux disease without esophagitis; Coronary artery disease involving [place] heart without angina pectoris, unspecified vessel or lesion type; Dysmetabolic syndrome; Mixed hyperlipidemia; Advance directive discussed with patient; Hyperglycemia; Need for hepatitis C screening test Start: 10-15-2020 End: 10-15-2020 Patient encounter procedure [facility] Start: 09-20-2020 End: 09-20-2020 Patient encounter procedure ABE Whiting [facility] Start: 09-17-2020 End: 09-17-2020 Subsequent hospital visit by physician Clara [facility] Work Phone: Radiology Comment on above: Cough [R05] Start: 08-29-2020 End: 08-29-2020 Patient encounter procedure GERSON MARROQUIN [facility] Start: 11-14-2009 End: 10-04-2015 Physical examination Carolina Gutiérrez APRN.CNP Work Phone: [facility] Procedures Date Procedure Procedure Detail Performing Clinician Start: 01-04-2025 Computed tomography of abdomen and pelvis with intravenous contrast Dr. Abe Gilmore MD Work Phone: Start: 01-04-2025 Urine microscopy: red cells Dr. Abe Gilmore MD Work Phone: Start: 01-04-2025 Urnls dip stick/tabl et reagent auto microscopy Dr. Abe Gilmore MD Work Phone: Start: 01-04-2025 Blood count smear rscp w/mnl difrntl wbc count Dr. Abe Gilmore MD Work Phone: Start: 01-04-[address] Abe Gilmore MD Work Phone: Start: 01-04-2025 Mean corpuscular hem oglobin concentration determination Dr. Abe Gilmore MD Work Phone: Start: 01-04-2025 Nucleated red blood cell count procedure Dr. Abe Gilmore MD Work Phone: Start: 01-04-2025 Platelet mean volume determination Dr. Abe Gilmore MD Work Phone: Start: 12-27-2024 Blood count smear mc rscp w/mnl difrntl wbc count Dr. Abe Gilmore MD Work Phone: Start: 12-27-[address] Abe Gilmore MD Work Phone: Start: 12-27-2024 Mean corpuscular hem oglobin concentration determination Dr. Abe Gilmore MD Work Phone: Start: 12-27-2024 Nucleated red blood cell count procedure Dr. Abe Gilmore MD Work Phone: Start: 12-27-2024 Platelet mean volume determination Dr. Abe Gilmore MD Work Phone: Start: 12-27-2024 Serum inorganic phos phate measurement Dr. Abe Gilmore MD Work Phone: Start: 12-26-2024 Iadna-dna/rna gi pth gn multiplex probe tq 6-11 Dr. Abe Gilmore MD Work Phone: Start: 12-26-2024 Clost[address]ium diff[address] e detection Dr. Abe Gilmore MD Work Phone: Start: 12-26-[address] Abe Gilmore MD Work Phone: Start: 12-25-[address] Abe Gilmore MD Work Phone: Start: 12-25-[address] Nomi Gilmore MD Work Phone: Start: 12-25-2024 SARS-CoV-2, Influenz a & RSV (PCR) Dr. Abe Gilmore MD Work Phone: Start: 12-25-[address] Nomi Gilmore MD Work Phone: Start: 12-25-2024 Dr. Joseline Gilmore MD Work Phone: Start: 12-25-2024 Urine microscopy: red cells Dr. Abe Gilmore MD Work Phone: Start: 12-25-2024 Urnls dip stick/tabl et reagent auto microscopy Dr. Abe Gilmore MD Work Phone: Start: 12-25-2024 Plain chest X-ray Dr. Gustavo Gilmore MD Work Phone: Start: 12-25-2024 End: 12-25-[address] Abe Gilmore MD Work Phone: Start: 12-25-[address] Abe Gilmore MD Work Phone: Start: 12-25-2024 Mean corpuscular hem oglobin concentration determination Dr. Abe Gilmore MD Work Phone: Start: 12-25-2024 Nucleated red blood cell count procedure Dr. Abe Gilmore MD Work Phone: Start: 12-25-2024 Platelet mean volume determination Dr. Abe Gilmore MD Work Phone: Start: 12-16-[address] Nomi Gilmore MD Work Phone: Start: 12-16-2024 Plain X-ray abdomen Dr. Abe Gilmore MD Work Phone: Start: 12-16-2024 Urine microscopy: red cells Dr. Abe Gilmore MD Work Phone: Start: 12-16-2024 Urnls dip stick/tabl et reagent auto microscopy Dr. Abe Gilmore MD Work Phone: Start: 12-16-2024 Blood count smear mc rscp w/mnl difrntl wbc count Dr. Abe Gilmore MD Work Phone: Start: 12-16-[address] Abe Gilmore MD Work Phone: Start: 12-16-2024 Mean corpuscular hem oglobin concentration determination Dr. Abe Gilmore MD Work Phone: Start: 12-16-2024 Nucleated red blood cell count procedure Dr. Abe Gilmore MD Work Phone: Start: 12-16-2024 Platelet mean volume determination Dr. Abe Gilmore MD Work Phone: Start: 12-14-2024 Cystoscopy and retro grade pyelography Dr. Abe Gilmore MD Work Phone: Start: 11-24-[address] Nomi Gilmore MD Work Phone: Start: 11-24-2024 CT of abdomen and pe lvis without contrast Dr. Abe Gilmore MD Work Phone: Start: 11-24-2024 Urine microscopy: red cells Dr. Abe Gilmore MD Work Phone: Start: 11-24-2024 Urnls dip stick/tabl et reagent auto microscopy Dr. Abe Gilmore MD Work Phone: Start: 11-24-2024 Blood count smear mc rscp w/mnl difrntl wbc count Dr. Abe Gilmore MD Work Phone: Start: 11-24-[address] Abe Gilmore MD Work Phone: Start: 11-24-2024 Mean corpuscular hem oglobin concentration determination Dr. Abe Gilmore MD Work Phone: Start: 11-24-2024 Nucleated red blood cell count procedure Dr. Abe Gilmore MD Work Phone: Start: 11-24-2024 Platelet mean volume determination Dr. Abe Gilmore MD Work Phone: Start: 10-26-[address] Abe Gilmore MD Work Phone: Start: 10-26-2024 Computed tomography of abdomen and pelvis with intravenous contrast Dr. Abe Gilmore MD Work Phone: Start: 10-26-2024 Urine microscopy: red cells Dr. Abe Gilmore MD Work Phone: Start: 10-26-2024 Urnls dip stick/tabl et reagent auto microscopy Dr. Abe Gilmore MD Work Phone: Start: 10-26-[address] Aurora Gilmore MD Work Phone: Start: 10-26-2024 Blood count smear mc rscp w/mnl difrntl wbc count Dr. Abe Gilmore MD Work Phone: Start: 10-26-[address] Abe Gilmore MD Work Phone: Start: 10-26-2024 Mean corpuscular hem oglobin concentration determination Dr. Abe Gilmore MD Work Phone: Start: 10-26-2024 Nucleated red blood cell count procedure Dr. Abe Gilmore MD Work Phone: Start: 10-26-2024 Platelet mean volume determination Dr. Abe Gilmore MD Work Phone: Start: 10-26-20[address] lipa se measurement Dr. Abe Gilmore MD Work Phone: Start: 09-02-2024 Urnls dip stick/tabl et rgnt auto w/o microscopy Lm Urbina MD Work Phone: Start: 04-22-2024 Adult depression scr eening assessment Abe Gilmore MD Work Phone: Start: 04-24-2023 INFLUENZA VACCINE, P RSV FREE, AGE 65+ YR, HIGH DOSE, QUADRIVALENT (FLUZONE HIGH-DOSE) Abe Gilmore MD Work Phone: Start: 04-23-2022 INFLUENZA SEASONAL QUADRIVALENT HIGH DOSE AGE 65+ Abe Gilmore MD Work Phone: Start: 12-20-2021 Plain X-ray of hip Dr. Abe Gilmore Work Phone: Start: 12-20-2021 Nasal Screen MRSA/MSSA Dr. Abe Gilmore Work Phone: Start: 12-20-2021 Revision uncemented total hip replacement Dr. Abe Gilmore Work Phone: Start: 12-13-2021 Plain x-ray of pelvi s and lower extremity Start: 09-17-2020 Radiologic exam ches t 2 views Abe Gilmore MD Work Phone: Start: 09-15-2020 Adult depression scr eening assessment Abe Gilmore MD Work Phone: Acid fast bacilli culture Dr Devonte Gilmore Work Phone: Cytopathology proced ure, preparation of smear, genital source Dr. Abe Gilmore Work Phone: Fungus stain method Dr. Cezar Gilmore Work Phone: Mycology culture Dr. Abe Gilmore Work Phone: Plan of Treatment Date Care Activity Detail Author Start: 10-14-2027 Diabetes Screening Diabetes Screening [facility] Start: 04-12-2027 Diabetes Screening Diabetes Screening [facility] Start: 11-09-2026 Diabetes Screening Diabetes Screening [facility] Start: 04-14-2026 Diabetes Screening Diabetes Screening [facility] Start: 10-21-2025 Annual PCP Team Chronic Disease Visit Annual PCP Team Chronic Disease Visit [facility] Start: 10-21-2025 BP Controlled (<130/80) BP Controlled (<130/80) [facility] in Start: 04-26-2025 End: 04-26-2025 Patient encounter procedure 04/26/2025 1:40 PM EDT Office Visit Family [facility] [address] [place] [address] Abe Gilmore MD [address] [place] [address] 6 month follow up. Labs prior [facility] Comment on above: 6 month follow up. Labs prior Start: 04-23-2025 End: 07-23-2025 CBC W Auto Differential panel - Blood COMPLETE BLOOD COUNT AND DIFFERENTIAL Lab Routine Essential hypertension Mixed hyperlipidemia Expected: 04/23/2025, Expires: 07/23/2025 [facility] Work Phone: Comment on above: Expected: 04/23/2025, Expires: Start: 04-23-2025 End: 07-23-2025 Cobalamin (Vitamin B12) [Mass/volume] in Serum or Plasma VITAMIN B12 Lab Routine Medication monitoring encounter Expected: 04/23/2025, Expires: 07/23/[address] [facility] Comment on above: Expected: 04/23/2025, Expires: Start: 04-23-2025 End: 07-23-2025 Comprehensive metabolic 2000 panel - Serum or Plasma COMPREHENSIVE METABOLIC PANEL Lab Routine Essential hypertension Mixed hyperlipidemia Expected: 04/23/2025, Expires: 07/23/[address] [facility] Comment on above: Expected: 04/23/2025, Expires: Start: 04-23-2025 End: 07-23-2025 Hemoglobin A1c in Blood HEMOGLOBIN A1C Lab Routine Hyperglycemia Expected: 04/23/2025, Expires: 07/23/[address] [facility] Comment on above: Expected: 04/23/2025, Expires: Start: 04-23-2025 End: 07-23-2025 Lipid 1996 panel - Serum or Plasma LIPID PANEL, FASTING Lab Routine Essential hypertension Mixed hyperlipidemia Expected: 04/23/2025, Expires: 07/23/[address] [facility] Comment on above: Expected: 04/23/2025, Expires: Start: 04-23-2025 End: 07-23-2025 Magnesium [Mass/volume] in Serum or Plasma MAGNESIUM Lab Routine Medication monitoring encounter Expected: 04/23/2025, Expires: 07/23/[address] [facility] Comment on above: Expected: 04/23/2025, Expires: Start: 04-22-2025 Annual PCP Team Chronic Disease Visit Annual PCP Team Chronic Disease Visit [facility] Start: 04-22-2025 Anxiety Screening Anxiety Screening [facility] Start: 04-22-2025 Covid-19 Vaccine ( season) Covid-19 Vaccine () [facility] Comment on above: Postponed from 03/27/2024 (Declined at t his time) Start: 04-22-2025 Depression Screening Depression Screening [facility] Start: 04-12-2025 Hepatitis B surface antibody level LDL Cholesterol [facility] Start: 03-28-2025 DIABETES SCREEN DIABETES SCREEN [facility] Start: 02-02-2025 BP Controlled (<130/80) BP Controlled (<130/80) [facility] in Start: 01-23-2025 Influenza vaccination Influenza Vaccine (#1) [facility] Comment on above: Postponed from 03/27/2024 (Declined at t his time) Start: 01-11-2025 End: 01-11-2025 Patient encounter procedure 01/11/2025 11:00 AM EDT Office Visit Cardiology [address] [place] [address] [phone] Nel Dial MD [address] [place] [address] [phone] Yearly follow up Cardiology Comment on above: Yearly follow up Start: 01-05-2025 Measuring intake and output [facility] Start: 01-04-2025 Measuring intake and output [facility] Start: 01-04-2025 Verification routine [facility] Start: 01-04-2025 Provision of activity privileges [facility] Start: 01-04-2025 End: 01-04-2025 Admission procedure [facility] Start: 01-04-2025 Assessment of risk of venous thromboembolism [facility] Start: 01-04-2025 Consultation [facility] Start: 01-04-2025 Taking patient vital signs [facility] Start: 01-04-2025 Vital signs measurements [facility] Start: 01-04-2025 End: 01-04-2025 [facility] Start: 01-04-2025 Hospital admission, emergency, from emergency room, medical nature [facility] Start: 01-04-2025 [facility] Start: 01-04-2025 End: 01-04-2025 [facility] Start: 01-01-2025 DIABETES SCREEN DIABETES SCREEN [facility] Start: 12-30-2024 BP Controlled (<130/80) BP Controlled (<130/80) [facility] Start: 12-30-2024 End: 12-30-2024 Echocardiography ECHO Cardiology Routine Coronary artery disease involving [place] heart without angina pectoris, unspecified vessel or lesion type Syncope, unspecified syncope type Enlarged thoracic aorta (HCC) Essential hypertension Mixed hyperlipidemia Shortness of breath JOSE (obstructive sleep apnea) Expected: 12/30/2024, Expires: 12/30/2024 [facility] Work Phone: Comment on above: Expected: 12/30/2024, Expires: Start: 12-27-2024 Referral to service [facility] Start: 12-27-2024 Patient discharge [facility] Start: 12-26-2024 Measuring intake and output [facility] Start: 12-26-2024 Referral to occupational therapist [facility] Start: 12-26-2024 Referral to service [facility] Start: 12-25-2024 Application of intermittent pneumatic compression device [facility] Start: 12-25-2024 Measuring intake and output [facility] Start: 12-25-2024 Consultation [facility] Start: 12-25-2024 Assessment of risk of venous thromboembolism [facility] Start: 12-25-2024 Deep breathing and coughing exercises [facility] Start: 12-25-2024 End: 12-25-2024 Following clinical pathway protocol [facility] Start: 12-25-2024 Oxygen therapy [facility] Start: 12-25-2024 Provision of activity privileges [facility] Start: 12-25-2024 Taking patient vital signs [facility] Start: 12-25-2024 Vital signs measurements [facility] Start: 12-25-2024 End: 12-25-2024 [facility] Start: 12-25-2024 Admission procedure [facility] Start: 12-25-2024 Hospital admission, emergency, from emergency room, medical nature [facility] Start: 12-25-2024 [facility] Start: 12-25-2024 Bacteria identified in Blood by Culture Blood Culture [facility] Start: 12-25-2024 Bacteria identified in Urine by Culture Urine Culture [facility] Start: 12-25-2024 End: 12-25-2024 [facility] Start: 12-25-2024 [facility] Start: 12-16-2024 [facility] Start: 12-14-2024 Anes trurl fragmntj manj&/rmvl ureteral calculus [facility] Start: 12-14-2024 Cysto/uretero w/lithotripsy &indwell stent insrt [facility] Start: 12-14-2024 Ambulation without limitation [facility] Start: 12-14-2024 Medication education [facility] Start: 12-14-2024 End: 12-14-2024 Patient discharge [facility] Start: 12-14-2024 Taking patient vital signs [facility] Start: 12-14-2024 [facility] Start: 11-24-2024 [facility] Start: 10-26-2024 Application of intermittent pneumatic compression device [facility] Start: 10-26-2024 Following clinical pathway protocol [facility] Start: 10-26-2024 Catheterization of vein [facility] Start: 10-26-2024 Incentive spirometry [facility] Start: 10-26-2024 Measuring intake and output [facility] Start: 10-26-2024 Notification of physician [facility] Start: 10-26-2024 Vital signs measurements [facility] Start: 10-26-2024 [facility] Start: 10-26-2024 Patient discharge [facility] Start: 10-26-2024 Umbilical hernioplasty Hernia, Umbilical Repair w/ Mesh (Not Applicable) [facility] Start: 10-26-2024 Hospital admission, emergency, from emergency room, medical nature [facility] Start: 10-26-2024 Ambulation without limitation [facility] Start: 10-26-2024 Admission procedure [facility] Start: 10-26-2024 Verification routine [facility] Start: 10-26-2024 Anesthesia hernia repair lower abdomen nos [facility] Start: 10-26-2024 RPR AA HRN 1ST < 3 NCR/STRN [facility] Start: 10-22-2024 Annual PCP Team Chronic Disease Visit Annual PCP Team Chronic Disease Visit [facility] Start: 10-22-2024 RSV Vaccine (1 - 1-dose 60+ series) RSV Vaccine (1 - 1-dose 60+ series) [facility] Comment on above: Postponed from 2004 (Declined at t his time) Start: 10-22-2024 RSV Vaccine (1 - 1-dose 75+ series) RSV Vaccine (1 - 1-dose 75+ series) [facility] Comment on above: Postponed from 2019 (Declined at t his time) Start: 10-21-2024 End: 10-21-2024 Patient encounter procedure 10/21/2024 8:40 AM EDT Office Visit [facility] [address] [place] [id number] Abe Gilmore MD [address] [place], [place] [phone] 6 month follow up. A1c prior [facility] Comment on above: 6 month follow up. A1c prior Start: 10-20-2024 End: 01-19-2025 Hemoglobin A1c in Blood HEMOGLOBIN A1C Lab Routine Prediabetes Expected: 10/20/2024, Expires: 01/19/2025 [facility] Work Phone: Comment on above: Expected: 10/20/2024, Expires: Start: 10-07-2024 DIABETES SCREEN DIABETES SCREEN [facility] Start: 07-27-2024 Advance Directive Discussion Advance Directive Discussion [facility] Start: 06-24-2024 BP Controlled (<130/80) BP Controlled (<130/80) [facility] Start: 05-19-2024 Annual PCP Team Chronic Disease Visit Annual PCP Team Chronic Disease Visit [facility] Start: 05-19-2024 BP Controlled (<130/80) BP Controlled (<130/80) [facility] Start: 04-25-2024 End: 04-25-2024 Patient encounter procedure 04/25/2024 10:40 AM EDT Office Visit [facility] [place] [address] [place] [phone] Abe Gilmore MD [address] [place] [phone] 6 month follow up [facility] Comment on above: 6 month follow up Start: 04-24-2024 Annual PCP Team Chronic Disease Visit Annual PCP Team Chronic Disease Visit [facility] Start: 04-24-2024 BP Controlled (<130/80) BP Controlled (<130/80) [facility] Start: 04-24-2024 Covid-19 Vaccine () Covid-19 Vaccine () [facility] Comment on above: Postponed from 03/27/2023 (Declined at t his time) Start: 04-24-2024 Covid-19 Vaccine (4 - Pfizer series) Covid-19 Vaccine (4 - Pfizer series) [facility] Comment on above: Postponed from 07/29/2021 (Declined at t his time) Start: 04-14-2024 Hepatitis B surface antibody level LDL Cholesterol [facility] Start: 03-27-2024 Covid-19 Vaccine () Covid-19 Vaccine () [facility] Start: 03-27-2024 Influenza vaccination Influenza Vaccine (#1) [facility] Start: 11-18-2023 End: 02-17-2024 Hemoglobin A1c in Blood HGB A1C Lab Routine Dysmetabolic syndrome Hyperglycemia Expected: 11/18/2023, Expires: 02/17/2024 [facility] Work Phone: Comment on above: Expected: 11/18/2023, Expires: Start: 10-23-2023 ANNUAL PCP TEAM CHRONIC DISEASE VISIT ANNUAL PCP TEAM CHRONIC DISEASE VISIT [facility] Start: 10-23-2023 BP CONTROLLED (<130/80) BP CONTROLLED (<130/80) [facility] Start: 07-27-2023 Behavioral Health Screening Behavioral Health Screening [facility] Start: 07-24-2023 BP CONTROLLED (<130/80) BP CONTROLLED (<130/80) [facility] Start: 06-05-2023 BP CONTROLLED (<130/80) BP CONTROLLED (<130/80) [facility] Start: 04-23-2023 ANNUAL PCP TEAM CHRONIC DISEASE VISIT ANNUAL PCP TEAM CHRONIC DISEASE VISIT [facility] Start: 04-23-2023 BP CONTROLLED (<130/80) BP CONTROLLED (<130/80) [facility] Start: 04-23-2023 COVID-19 VACCINE (4 - Booster for Pfizer series) COVID-19 VACCINE (4 - Booster for Pfizer series) [facility] Comment on above: Postponed from 07/29/2021 (Declined at t his time) Start: 04-23-2023 COVID-19 VACCINE (4 - Pfizer series) COVID-19 VACCINE (4 - Pfizer series) [facility] Comment on above: Postponed from 07/29/2021 (Declined at t his time) Start: 04-04-2023 End: 06-04-2023 CBC W Auto Differential panel - Blood CBC + DIFF Lab Routine Coronary artery disease involving [place] heart without angina pectoris, unspecified vessel or lesion type Essential hypertension Gastroesophageal reflux disease without esophagitis Prediabetes Expected: 04/04/2023, Expires: 06/04/2023 [facility] Work Phone: Comment on above: Expected: 04/04/2023, Expires: 3 Start: 04-04-2023 End: 06-04-2023 Comprehensive metabolic 2000 panel - Serum or Plasma COMP METABOLIC PANEL Lab Routine Coronary artery disease involving [place] heart without angina pectoris, unspecified vessel or lesion type Essential hypertension Gastroesophageal reflux disease without esophagitis Mixed hyperlipidemia Dysmetabolic syndrome Prediabetes Expected: 04/04/2023, Expires: 06/04/2023 [facility] Work Phone: Comment on above: Expected: 04/04/2023, Expires: 3 Start: 04-04-2023 End: 06-04-2023 Hemoglobin A1c in Blood HGB A1C Lab Routine Dysmetabolic syndrome Prediabetes Expected: 04/04/2023, Expires: 06/04/2023 [facility] Work Phone: Comment on above: Expected: 04/04/2023, Expires: 3 Start: 04-04-2023 End: 06-04-2023 Lipid 1996 panel - Serum or Plasma LIPID PANEL BASIC Lab Routine Mixed hyperlipidemia Prediabetes Expected: 04/04/2023, Expires: 06/04/2023 [facility] Work Phone: Comment on above: Expected: 04/04/2023, Expires: Start: 03-27-2023 Influenza vaccination [facility] Start: 10-23-2022 ANNUAL PCP TEAM CHRONIC DISEASE VISIT ANNUAL PCP TEAM CHRONIC DISEASE VISIT [facility] Start: 10-22-2022 End: 12-22-2022 25-hydroxyvitamin D3 [Mass/volume] in Serum or Plasma VITAMIN D 25 HYDROXY Lab Routine Primary osteoarthritis involving multiple joints Vitamin D deficiency Expected: 10/22/2022, Expires: 12/22/2022 [facility] Work Phone: Comment on above: Expected: 10/22/2022, Expires: 3 Start: 10-22-2022 End: 12-22-2022 CBC W Auto Differential panel - Blood CBC + DIFF Lab Routine Essential hypertension Expected: 10/22/2022, Expires: 12/22/2022 [facility] Work Phone: Comment on above: Expected: 10/22/2022, Expires: 3 Start: 10-22-2022 End: 12-22-2022 Comprehensive metabolic 2000 panel - Serum or Plasma COMP METABOLIC PANEL Lab Routine Essential hypertension Expected: 10/22/2022, Expires: 12/22/2022 [facility] Work Phone: Comment on above: Expected: 10/22/2022, Expires: 3 Start: 10-22-2022 End: 12-22-2022 Hemoglobin A1c in Blood HGB A1C Lab Routine Dysmetabolic syndrome Hyperglycemia Expected: 10/22/2022, Expires: 12/22/2022 [facility] Work Phone: Comment on above: Expected: 10/22/2022, Expires: 3 Start: 10-22-2022 End: 12-22-2022 Lipid 1996 panel - Serum or Plasma LIPID PANEL BASIC Lab Routine Mixed hyperlipidemia Expected: 10/22/2022, Expires: 12/22/2022 [facility] Work Phone: Comment on above: Expected: 10/22/2022, Expires: 3 Start: 10-07-2022 Hepatitis B surface antibody level LDL CHOLESTEROL [facility] Start: 07-27-2022 ADVANCE DIRECTIVE DISCUSSION ADVANCE DIRECTIVE DISCUSSION [facility] Start: 07-27-2022 DEPRESSION ASSESSMENT DEPRESSION ASSESSMENT [facility] Start: 04-25-2022 End: 06-25-2022 Hemoglobin A1c/Hemoglobin.total in Blood HGB A1C Lab Routine Hyperglycemia Expected: 04/25/2022, Expires: 06/25/2022 [facility] Work Phone: Comment on above: Expected: 04/25/2022, Expires: 2 Start: 04-25-2022 End: 06-25-2022 Hepatitis C virus Ab [Presence] in Serum HEP C AB IA W/CONF SCRN Lab Routine Need for hepatitis C screening test Expected: 04/25/2022, Expires: 06/25/2022 [facility] Work Phone: Comment on above: Expected: 04/25/2022, Expires: 2 Start: 04-23-2022 End: 06-23-2022 CBC W Auto Differential panel - Blood CBC + DIFF Lab Routine Iron deficiency anemia, unspecified iron deficiency anemia type Expected: 04/23/2022, Expires: 06/23/2022 [facility] Work Phone: Comment on above: Expected: 04/23/2022, Expires: 2 Start: 04-23-2022 End: 06-23-2022 Iron and Iron binding capacity panel - Serum or Plasma IRON + TIBC Lab Routine Iron deficiency anemia, unspecified iron deficiency anemia type Expected: 04/23/2022, Expires: 06/23/2022 [facility] Work Phone: Comment on above: Expected: 04/23/2022, Expires: 2 Start: 03-27-2022 Influenza vaccination INFLUENZA (#1) [facility] Start: 01-10-2022 End: 03-12-2022 CBC W Auto Differential panel - Blood CBC + DIFF Lab Routine Anemia, unspecified type Expected: 01/10/2022, Expires: 03/12/2022 [facility] Work Phone: Comment on above: Expected: 01/10/2022, Expires: 2 Start: 01-03-2022 End: 01-03-2023 CBC W Auto Differential panel - Blood CBC + DIFF Lab Routine Anemia, unspecified type Expected: 01/03/2022, Expires: 01/03/2023 [facility] Work Phone: Comment on above: Expected: 01/03/2022, Expires: 3 Start: 01-03-2022 End: 01-03-2023 Cobalamin (Vitamin B12) [Mass/volume] in Serum or Plasma VITAMIN B12 BLOOD Lab Routine Anemia, unspecified type Expected: 01/03/2022, Expires: 01/03/2023 [facility] Work Phone: Comment on above: Expected: 01/03/2022, Expires: 3 Start: 01-03-2022 End: 01-03-2023 Ferritin [Mass/volume] in Serum or Plasma FERRITIN BLD Lab Routine Anemia, unspecified type Expected: 01/03/2022, Expires: 01/03/2023 [facility] Work Phone: Comment on above: Expected: 01/03/2022, Expires: 3 Start: 01-03-2022 End: 01-03-2023 Folate [Mass/volume] in Serum or Plasma FOLATE SERUM Lab Routine Anemia, unspecified type Expected: 01/03/2022, Expires: 01/03/2023 [facility] Work Phone: Comment on above: Expected: 01/03/2022, Expires: 3 Start: 01-03-2022 End: 01-03-2023 Iron and Iron binding capacity panel - Serum or Plasma IRON + TIBC Lab Routine Anemia, unspecified type Expected: 01/03/2022, Expires: 01/03/2023 [facility] Work Phone: Comment on above: Expected: 01/03/2022, Expires: 3 Start: 01-03-2022 End: 01-03-2023 RETIC COUNT RETIC COUNT Lab Routine Anemia, unspecified type Expected: 01/03/2022, Expires: 01/03/2023 [facility] Work Phone: Comment on above: Expected: 01/03/2022, Expires: 3 Start: 12-26-2021 End: 02-25-2022 Basic metabolic 2000 panel - Serum or Plasma BASIC METABOLIC PNL Lab Routine Essential hypertension Expected: 12/26/2021, Expires: 02/25/2022 [facility] Work Phone: Comment on above: Expected: 12/26/2021, Expires: 2 Start: 12-26-2021 End: 02-25-2022 CBC W Auto Differential panel - Blood CBC + DIFF Lab Routine Essential hypertension Expected: 12/26/2021, Expires: 02/25/2022 [facility] Work Phone: Comment on above: Expected: 12/26/2021, Expires: 2 Start: 12-21-2021 Patient discharge [facility] Work Phone: Start: 12-20-2021 Oxygen therapy [facility] Work Phone: Start: 12-20-2021 Incentive spirometry [facility] Work Phone: Start: 12-20-2021 Continuous positive airway pressure ventilation treatment [facility] Work Phone: Start: 12-20-2021 Following clinical pathway protocol [facility] Work Phone: Start: 12-20-2021 Provision of overbed trapeze [facility] Work Phone: Start: 12-20-2021 Ambulation therapy management [facility] Work Phone: Start: 12-20-2021 Application of device [facility] Work Phone: Start: 12-20-2021 Assessment of risk of venous thromboembolism [facility] Work Phone: Start: 12-20-2021 Catheterization of vein [facility] Work Phone: Start: 12-20-2021 Exercises [facility] Work Phone: Start: 12-20-2021 Following clinical pathway protocol [facility] Work Phone: Start: 12-20-2021 Introduction of urinary catheter [facility] Work Phone: Start: 12-20-2021 Measuring intake and output [facility] Work Phone: Start: 12-20-2021 Neurovascular assessment [facility] Work Phone: Start: 12-20-2021 Patient education [facility] Work Phone: Start: 12-20-2021 Procedure discontinued [facility] Work Phone: Start: 12-20-2021 Provision of activity privileges [facility] Work Phone: Start: 12-20-2021 Referral to occupational therapist [facility] Work Phone: Start: 12-20-2021 Referral to service [facility] Work Phone: Start: 12-20-2021 Vital signs measurements [facility] Work Phone: Start: 12-20-2021 Wound care [facility] Work Phone: Start: 12-20-2021 [facility] Work Phone: Start: 12-20-2021 Consultation [facility] Work Phone: Start: 12-20-2021 Admission procedure [facility] Work Phone: Start: 12-20-2021 Application of antithromboembolic stockings [facility] Work Phone: Start: 12-20-2021 Application of intermittent pneumatic compression device [facility] Work Phone: Start: 12-20-2021 Anaerobic Culture Anaerobic Culture [facility] Work Phone: Start: 12-20-2021 Microbial culture, routine Wound Culture [facility] Work Phone: Start: 12-20-2021 Microscopic observation [Identifier] in Unspecified specimen by Gram stain Gram Stain [facility] Work Phone: Start: 10-01-2021 COVID-19 VACCINE (4 - Booster for Pfizer series) COVID-19 VACCINE (4 - Booster for Pfizer series) [facility] Start: 09-15-2021 Adult depression screening assessment DEPRESSION SCREENING [facility] Start: 07-29-2021 COVID-19 VACCINE (4 - Booster for Pfizer series) COVID-19 VACCINE (4 - Booster for Pfizer series) [facility] Start: 07-27-2021 ADVANCE DIRECTIVE DISCUSSION ADVANCE DIRECTIVE DISCUSSION [facility] Start: 07-27-2021 DEPRESSION ASSESSMENT DEPRESSION ASSESSMENT [facility] Start: 2019 RSV Vaccine (1 - 1-dose 75+ series) RSV Vaccine (1 - 1-dose 75+ series) [facility] Start: 10-03-2016 PNEUMOCOCCAL: 65+ (1 - PCV) PNEUMOCOCCAL: 65+ (1 - PCV) [facility] Start: 09-08-2016 Urine microalbumin profile DTAP,TDAP,TD (2 - Td or Tdap) [facility] Start: 2004 RSV Vaccine (1 - 1-dose 60+ series) RSV Vaccine (1 - 1-dose 60+ series) [facility] Start: 1994 SHINGRIX VACCINE (1 of 2) SHINGRIX VACCINE (1 of 2) [facility] Start: 1962 Anxiety Screening Anxiety Screening [facility] Start: 1962 BP CONTROLLED (<130/80) BP CONTROLLED (<130/80) [facility] Start: 1962 Depression Screening Depression Screening [facility] Start: 1962 HEPATITIS C SCREENING HEPATITIS C SCREENING [facility] Anion gap in Serum o r Plasma [facility] Anion gap in Serum o r Plasma [facility] Anion gap in Serum o r Plasma [facility] Anion gap in Serum o r Plasma [facility] Anion gap in Serum o r Plasma [facility] Anion gap in Serum o r Plasma [facility] BUN/Creatinine ratio [facility] BUN/Creatinine ratio [facility] BUN/Creatinine ratio [facility] BUN/Creatinine ratio [facility] BUN/Creatinine ratio [facility] BUN/Creatinine ratio [facility] Calcium [Mass/volume ] in Serum or Plasma [facility] Calcium [Mass/volume ] in Serum or Plasma [facility] Calcium [Mass/volume ] in Serum or Plasma [facility] Calcium [Mass/volume ] in Serum or Plasma [facility] Calcium [Mass/volume ] in Serum or Plasma [facility] Calcium [Mass/volume ] in Serum or Plasma [facility] Carbon dioxide, tota l [Moles/volume] in Central venous blood [facility] Carbon dioxide, tota l [Moles/volume] in Central venous blood [facility] Carbon dioxide, tota l [Moles/volume] in Central venous blood [facility] Carbon dioxide, tota l [Moles/volume] in Central venous blood [facility] Carbon dioxide, tota l [Moles/volume] in Central venous blood [facility] Carbon dioxide, tota l [Moles/volume] in Central venous blood [facility] Creatinine [Mass/vol ume] in Serum or Plasma [facility] Creatinine [Mass/vol ume] in Serum or Plasma [facility] Creatinine [Mass/vol ume] in Serum or Plasma [facility] Creatinine [Mass/vol ume] in Serum or Plasma [facility] Creatinine [Mass/vol ume] in Serum or Plasma [facility] Creatinine [Mass/vol ume] in Serum or Plasma [facility] End: 11-19-2022 Echocardiography ECHO Cardiology Routine Coronary artery disease involving [place] heart without angina pectoris, unspecified vessel or lesion type Enlarged thoracic aorta (HCC) Shortness of breath Syncope, unspecified syncope type 1 Occurrences starting 11/19/2021 until 11/19/2022 [facility] Work Phone: Comment on above: 1 Occurrences starting 11/19/2021 until 11/19/2022 End: 06-24-2024 Echocardiography ECHO Cardiology Routine Enlarged thoracic aorta (HCC) Coronary artery disease involving [place] heart without angina pectoris, unspecified vessel or lesion type 1 Occurrences starting 06/24/2023 until 06/24/2024 [facility] Work Phone: Comment on above: 1 Occurrences starting 06/24/2023 until 06/24/2024 Erythrocyte mean corpuscular volume determination [facility] Erythrocyte mean corpuscular volume determination [facility] Erythrocyte mean corpuscular volume determination [facility] Erythrocyte mean corpuscular volume determination [facility] Erythrocyte mean corpuscular volume determination [facility] Erythrocyte mean corpuscular volume determination [facility] Glucose [Mass/volume ] in Serum or Plasma [facility] Glucose [Mass/volume ] in Serum or Plasma [facility] Glucose [Mass/volume ] in Serum or Plasma [facility] Glucose [Mass/volume ] in Serum or Plasma [facility] Glucose [Mass/volume ] in Serum or Plasma [facility] Glucose [Mass/volume ] in Serum or Plasma [facility] Hematocrit [Volume Fraction] of Blood [facility] Hematocrit [Volume Fraction] of Blood [facility] Hematocrit [Volume Fraction] of Blood [facility] Hematocrit [Volume Fraction] of Blood [facility] Hematocrit [Volume Fraction] of Blood [facility] Hematocrit [Volume Fraction] of Blood [facility] Hemoglobin [Mass/vol ume] in Blood [facility] Hemoglobin [Mass/vol ume] in Blood [facility] Hemoglobin [Mass/vol ume] in Blood [facility] Hemoglobin [Mass/vol ume] in Blood [facility] Hemoglobin [Mass/vol ume] in Blood [facility] Hemoglobin [Mass/vol ume] in Blood [facility] Hemoglobin.gastroint estinal .lower [Presence] in Stool by Immunoassay FECAL OCCULT BLOOD TEST Lab Routine Anemia, unspecified type Ordered: 01/03/2022 [facility] Work Phone: Comment on above: Ordered: 01/03/2022 Hemoglobin.gastroint estinal .lower [Presence] in Stool by Immunoassay FECAL OCCULT BLOOD TEST Lab Routine Anemia, unspecified type Ordered: 01/06/2022 [facility] Work Phone: Comment on above: Ordered: 01/06/2022 Leukocytes [#/volume ] in Blood [facility] Leukocytes [#/volume ] in Blood [facility] Leukocytes [#/volume ] in Blood [facility] Leukocytes [#/volume ] in Blood [facility] Leukocytes [#/volume ] in Blood [facility] Leukocytes [#/volume ] in Blood [facility] Mean corpuscular hem oglobin concentration determination [facility] Mean corpuscular hem oglobin concentration determination [facility] Mean corpuscular hem oglobin concentration determination [facility] Mean corpuscular hem oglobin concentration determination [facility] Mean corpuscular hem oglobin concentration determination [facility] Mean corpuscular hem oglobin concentration determination [facility] Mean corpuscular hem oglobin determination [facility] Mean corpuscular hem oglobin determination [facility] Mean corpuscular hem oglobin determination [facility] Mean corpuscular hem oglobin determination [facility] Mean corpuscular hem oglobin determination [facility] Mean corpuscular hem oglobin determination [facility] Measurement of renal function [facility] Measurement of renal function [facility] Measurement of renal function [facility] Measurement of renal function [facility] Measurement of renal function [facility] Measurement of renal function [facility] Neutrophil count [facility] Neutrophil count [facility] Neutrophil count [facility] Neutrophil count [facility] Neutrophil count [facility] Neutrophil count [facility] Neutrophil percent differential count [facility] Neutrophil percent differential count [facility] Neutrophil percent differential count [facility] Neutrophil percent differential count [facility] Neutrophil percent differential count [facility] Neutrophil percent differential count [facility] Patient Education [facility] Work Phone: Patient referral [facility] Work Phone: Platelets [#/volume] in Blood [facility] Platelets [#/volume] in Blood [facility] Platelets [#/volume] in Blood [facility] Platelets [#/volume] in Blood [facility] Platelets [#/volume] in Blood [facility] Platelets [#/volume] in Blood [facility] Potassium measurement [facility] Potassium measurement [facility] Potassium measurement [facility] Potassium measurement [facility] Potassium measurement [facility] Potassium measurement [facility] Red blood cell count [facility] Red blood cell count [facility] Red blood cell count [facility] Red blood cell count [facility] Red blood cell count [facility] Red blood cell count [facility] Red cell distributio n width determination [facility] Red cell distributio n width determination [facility] Red cell distributio n width determination [facility] Red cell distributio n width determination [facility] Red cell distributio n width determination [facility] Red cell distributio n width determination [facility] Serum chloride measurement [facility] Serum chloride measurement [facility] Serum chloride measurement [facility] Serum chloride measurement [facility] Serum chloride measurement [facility] Serum chloride measurement [facility] Sodium measurement [facility] Sodium measurement [facility] Sodium measurement [facility] Sodium measurement [facility] Sodium measurement [facility] Sodium measurement [facility] Urea nitrogen [Mass/ volume] in Serum or Plasma [facility] Urea nitrogen [Mass/ volume] in Serum or Plasma [facility] Urea nitrogen [Mass/ volume] in Serum or Plasma [facility] Urea nitrogen [Mass/ volume] in Serum or Plasma [facility] Urea nitrogen [Mass/ volume] in Serum or Plasma [facility] Urea nitrogen [Mass/ volume] in Serum or Plasma [facility] Urine culture [facility] Urine culture [facility] Immunizations Immunization Date Immunization Notes Care Provider D[facility] 05-07-2024 influenza, high dose seasonal, preservative-free Immunization [place] Work Phone: [facility] 02-03-2024 tetanus toxoid, redu zoie diphtheria toxoid, and acellular pertussis vaccine, adsorbed Lm Urbina MD Work Phone: [facility] 04-24-2023 influenza (HD-IIV4) vaccine, age 65+ yr, high dose, quadrivalent, PF (FLUZONE HIGH-DOSE) Abe Gilmore MD Work Phone: [facility] 04-24-2023 influenza virus vaccine, unspecified formulation Lm Urbina MD Work Phone: [facility] 12-16-2022 zoster vaccine recombinant Abe Gilmore MD Work Phone: [facility] 09-09-2022 zoster vaccine recombinant Abe Gilmore MD Work Phone: [facility] 04-23-2022 influenza, high-dose , quadrivalent vaccine (FLUZONE HIGH DOSE QUADRIVALENT) Abe Gilmore MD Work Phone: [facility] 04-23-2022 influenza virus vaccine, unspecified formulation Abe Gilmore MD Work Phone: [facility] 06-03-2021 COVID-19 vaccine, ag e 12+ yr ([employer] - PURPLE TOP) Abe Gilmore MD Work Phone: [facility] 04-25-2021 influenza, high-dose , quadrivalent vaccine (FLUZONE HIGH DOSE QUADRIVALENT) Abe Gilmore MD Work Phone: [facility] 04-06-2020 influenza, high-dose , quadrivalent vaccine (FLUZONE HIGH DOSE QUADRIVALENT) Abe Gilmore MD Work Phone: [facility] 04-03-2019 influenza, high dose seasonal, preservative-free Abe Gilmore MD Work Phone: [facility] 05-13-2018 influenza, high dose seasonal, preservative-free Abe Gilmore MD Work Phone: [facility] 05-29-2017 influenza, high dose seasonal, preservative-free Abe Gilmore MD Work Phone: [facility] 05-09-2016 influenza, high dose seasonal, preservative-free Abe Gilmore MD Work Phone: [facility] 10-04-2015 pneumococcal polysaccharide vaccine, 23 valent Abe Gilmore MD Work Phone: [facility] 05-24-2015 influenza, high dose seasonal, preservative-free Abe Gilmore MD Work Phone: [facility] 03-14-2015 Influenza virus vaccine [facility] 03-14-2015 influenza, seasonal, injectable, preservative free Abe Gilmore MD Work Phone: [facility] 09-19-2014 pneumococcal conjuga te vaccine, 13 valent Abe Gilmore MD Work Phone: [facility] 04-14-2013 influenza virus vaccine, unspecified formulation Abe Gilmore MD Work Phone: [facility] Work Phone: 05-02-2009 influenza virus vaccine, unspecified formulation Abe Gilmore MD Work Phone: [facility] Work Phone: 07-21-2008 pneumococcal polysaccharide vaccine, 23 valent Abe Gilmore MD Work Phone: [facility] 05-15-2008 influenza virus vaccine, unspecified formulation Abe Gilmore MD Work Phone: [facility] 09-08-2006 tetanus toxoid, redu zoie diphtheria toxoid, and acellular pertussis vaccine, adsorbed Abe Gilmore MD Work Phone: [facility] Work Phone: Payers Date Payer Category Payer Self-pay [id number] 2021 Unknown HOSPITAL/MEDICAL GENERIC MEDICAL GENERIC [id number] 2021-Present [phone] [address] [address] [place] [address] Indemnity [id number] 2018 Unknown HOSPITAL/MEDICAL GENERIC MEDICAL GENERIC [id number] 2018-Present [phone] [address] [address] [place] [address] Indemnity [id number] 2018 Unknown [id number] 2014 Private Health Insurance [facility] [id number] 2011 Medicare MEDICARE MEDICAR E A AND B [id number] 2011-Present [phone] [address] [address] [place] [id number] Medicare [id number] 2011 Medicare [id number] 2011 Unknown [id number] 2011 Unknown [id number] 2010 Medicare [id number] 1945 Unknown [id number] .651 1945 Unknown [id number] .651 1945 Unknown [id number] .651 Unknown [id number] Unknown [id number] .462 Unknown [id number] .462 Unknown [id number] .462 Unknown [id number] [id number] .462 Unknown [id number] .462 Unknown [id number] 2.16.840.1.542534.3.579.2 .462 Unknown [id number] 2.16.840.1.452336.3.579.2 .462 Unknown [id number] 2.16.840.1.227907.3.579.2 .462 Unknown [id number] 2.16.840.1.128611.3.579.2 .462 Unknown [id number] 2.16.840.1.751566.3.579.2 .462 Unknown [id number] 2.16.840.1.631251.3.579.2 .462 Unknown [id number] 2.16.840.1.679617.3.579.2 .462 Unknown [id number] .462 Unknown [id number] .462 Social History Date Type Detail Facility Start: 06-06-2015 End: 01-04-2025 Tobacco smoking status NHIS Never smoked tobacco [facility] Start: 05-21-2021 End: 10-21-2024 Alcohol intake Current non-drinker of alcohol (finding) [facility] Start: 1945 Sex Assigned At Not on file C [facility] Start: 08-18-2020 End: 04-23-2022 Exposure to SARS-CoV-2 (event) Not sure [facility] Start: 12-13-2021 End: 01-28-2023 Tobacco smoking status MIIS Unknown if ever smoked [facility] Start: 04-04-2015 None [facility] Start: 04-04-2015 Non-smoker [facility] Start: 1945 Sex Assigned At Male [facility] Start: 06-06-2015 Tobacco use and exposure Smokeless tobacco non-user [facility] Start: 10-22-2022 End: 04-24-2023 History of Social function [facility] Work Phone: Start: 10-22-2022 End: 04-24-2023 Tobacco use panel [facility] Work Phone: Adult Depression Screening Assessment [address] [facility] Work Phone: Start: 10-26-2024 End: 10-26-2024 Sex Male (finding) [facility] Medical Equipment Procedure Code Equipment Code Equipment Origin al Text Equipment Identifier Dates Revision of uncemented total hip replacement ([id number]) [id number] FDA Start: 12-20-2021 Revision of uncemented total hip replacement ([id number]) ()[id number] FDA Start: 12-20-2021 Revision of uncemented total hip replacement ([id number]) ()[id number] FDA Start: 12-20-2021 Revision of uncemented total hip replacement ([id number]) ()[id number] FDA Start: 12-20-2021 Revision of uncemented total hip replacement ([id number]) ()[id number] FDA Start: 12-20-2021 Revision of uncemented total hip replacement ([id number]) ()[id number] FDA Start: 12-20-2021 Revision of uncemented total hip replacement ([id number]) ()[id number] FDA Start: 12-20-2021 Revision of uncemented total hip replacement ([id number]) ()[id number] FDA Start: 12-20-2021 Cystoscopy, with retrograde pyelogram, ureteroscopy, laser procedure, and stent inser ([id number]) ()[id number] FDA Start: 12-14-2024 Stent Uret 6fr 26cm W/O Gw Inl - [id number] Start: 03-21-2015 Goals Date Patient Goal Desired Activity /State Functional Status Date Assessment Result Facility 12-27-2024 Functional status Bathroom Privilege [facility] Work Phone: 12-14-2024 Functional status Ambulates;Bath room Privilege [facility] Work Phone: 12-21-2021 Functional status Ambulates [facility] Work Phone: 06-23-2019 Are you deaf, or do you have serious difficulty hearing No 06/23/2019 3:21 PM Live Ross, ROCIO No [facility] 06-23-2019 Are you blind, or do you have serious difficulty seeing, even when wearing glasses No 06/23/2019 3:21 PM Live Ross, ROCIO No [facility] 06-23-2019 Do you have serious difficulty walking or climbing stairs No 06/23/2019 3:21 PM Live Ross, ROCIO No [facility] 06-23-2019 Do you have difficul ty dressing or bathing No 06/23/2019 3:21 PM Live Ross, ROCIO No [facility] 06-23-2019 Because of a physica l, mental, or emotional condition, do you have difficulty doing errands alone such as visiting a physician's office or shopping No 06/23/2019 3:21 PM Live Ross, ROCIO No [facility] Mental Status Date Assessment Result Facility 01-04-2025 Cognitive function Awake;Alert;A ppropriate;Fol lows Commands [facility] Work Phone: 12-27-2024 Cognitive function Voice/Name [facility] Work Phone: 12-25-2024 Cognitive function Level Of Cons ciousness Awake;Alert;Appropriate;Fol lows Commands [facility] Work Phone: 12-25-2024 Cognitive function Awake;Alert;A ppropriate;Fol lows Commands [facility] Work Phone: 12-14-2024 Cognitive function Voice/Name [facility] Work Phone: 10-26-2024 Cognitive function Appropriate;Cooperativ e [facility] Work Phone: 10-26-2024 Cognitive function Voice/Name [facility] Work Phone: 12-21-2021 Cognitive function Level Of Cons ciousness Awake;Alert;Appropriate;Fol lows Commands [facility] Work Phone: 12-21-2021 Cognitive function Voice/Name [facility] Work Phone: 06-23-2019 Because of a physica l, mental, or emotional condition, do you have serious difficulty concentrating, remembering, or making decisions No 06/23/2019 3:21 PM Live Ross RN No [facility] Clinical Notes 06-23-2019 to 01-04-2025 Note Date & Type Note Facility 01-04-2025 Radiology Diagnostic study note [facility] 01-04-2025 Discharge summary Note Date/Time January 04, 2025 6:49pm [facility] Medical Records Department [address] [place] [address] Emergency Department Summary 01/04/25 MR#: [id number] Acct: [id number] Name: ZION MARSH Rep #:[id number] : 1945 79 From: Bill Gary MD PCP: Dr. Abe Gilmore MD Status:ADM I N Location: MS3 [id number] Bill Gary MD on 01/04/25 at 1849 EKG reveals a normal sinus rhythm rate of 68. There is artifact noted. Computer is reading inferior infarct of undetermined age. I am not in agreement. Rate is 68. MS interval 274 ms. QS duration 96 ms. QT duration 392 ms. [place] is normal. 01/04/25 9525<Electronically signed by Bill Gary MD> Cosigner Signature (if applicable): cc: Dr. Abe Gilmore MD ~* Signed ADDENDUM by Dr. Bill Gary MD on 01/04/[address] Guidry called back and requested a CT of the abdomen and pelvis with IV contrast to assess for abscess. This was ordered. 01/04/251727<Electronically signed by Bill Gary MD> Cosigner Signature (if applicable): cc: Dr. Abe Gilmore MD ~* Signed HPI History of Present Illness Chief Complaint: Fever Detail of Chief Complaint: Fever greater than 101.0 ?F and rigors Informant: patient and spouse/S.O. Onset/Context/Timing Onset: Today Context: Sudden Onset Timing: Continuous Quality: Fever Location: Generalized Current Severity: Mild Maximum Severity: Moderate Worsened by: Presumed UTI Relieved by: Nothing Associated Symptoms Associated Symptoms: Thirst, dry mouth, lightheadedness, nausea Narrative Narrative: Patient is a an 79-year-old male. He was admitted to the hospital on December 25. Dr. Donald ER documentation was reviewed. Dr. Guidry's H&P was reviewed. He was seen also by infectious disease. [facility]ist were consulted. Patient had lithotripsy of the stone. He was sent home on ciprofloxacin. He returned to the ER and was determined to be infected. He had a stent placed. The stent is still in place. According to patient and the stent is to be removed tomorrow. Patient was discharged on December 27. He was followed by visiting home nurse. He was on IV antibiotics until this past Thursday. He was doing well until today when he developed temperature greater than 101 ?F and rigors. He denies headache, visual, ocular auditory symptoms. He denies cardiac or respiratory symptoms. He denies abdominal distention or pain. He denies nausea, vomit or diarrhea. He endorses decreased urine output. He denies change in color of his urine or discomfort with urination. He has not noted anyskin lesions. He states he does feel lightheaded when he stands and had similarsymptoms when he was admitted on December 25. Prior similar symptoms: Yes Recent Illness/Hospitalization: Yes PFSH [facility] Medical History Kidney stone on left side Loss of hearing Prostate disease Low iron Restless legs Hypertension History of MRSA infection Wears glasses Anxiety Arthritis High cholesterol Gastric reflux Non-smoker CPAP (continuous positive airway pressure) dependence History of pain when walking History of stress test History of echocardiogram Cardiology follow-up encounter BPH (benign prostatic hyperplasia) Dyslipidemia Nephrolithiasis Coronary artery disease Home Medications ?Medication ?Instructions ?Recorded ?Last Taken ?Type aspirin 81 mg tablet,delayed 81 mg PO QHS BLOOD THINNE R 04/04/15 12/07/24 History release atorvastatin 40 mg tablet 40 mg PO QHS CHOLESTEROL 04/1012/15/24 History finasteride 5 mg tablet 5 mg PO QHS URINATION 12/15/24 History tamsulosin 0.4 mg capsule 0.4 mg PO QHS URINATION 04/1012/15/24 History doxazosin 4 mg tablet,extended 4 mg PO QHS HEART 01/2312/15/24 History release 24 hr (Cardura XL) cholecalciferol (vitamin D3) 25 25 mcg PO DAILY SUPPLE MENT 12/17/21 12/15/24 History mcg (1,000 unit) capsule (Vitamin D3) gabapentin 100 mg capsule 200 mg PO QHS PAIN 12/17/21 12/15/24 History losartan 50 mg tablet 50 mg PO DAILY BP 12/17/21 0 12/16/24 History multivitamin 1 tab PO DAILY SUPPLEMENT 12/16/24 History tramadol 50 mg tablet 50 mg PO 4X/DAY PRN pain 12/15/24 History ibuprofen 600 mg tablet 600 mg PO Q6H PRN pain #20 t abs 12/14/24 12/16/24 Rx acetaminophen 500 mg capsule 1,000 mg PO Q4H PRN pain 12/16/24 12/16/24 History omeprazole 20 mg capsule,delayed 40 mg PO DAILY 12/16/24 History release venlafaxine 150 mg 150 mg PO DAILY 12/16/24 History capsule,extended release 24 hr levofloxacin 500 mg tablet 500 mg PO DAILY #7 tabs 10/18 Unknown Rx piperacillin-tazobactam 3.375 3.375 g (56.25 mL) IV Q8 H 5 days 12/27/24 Unknown Rx gram/50 mL dextrose(iso-os) IV piggyback (Zosyn) Allergy/AdvReac Type Severity Reaction Status Date / Time No Known Allergies Allergy Verified 01/04/25 12:40 Surgical History S/P umbilical hernia repair, follow-up exam Hx of bilateral cataract extraction Hx of hernia repair Hx of appendectomy History of carpal tunnel release of both wrists Hx of repair of right rotator cuff Hx of repair of left rotator cuff Hx of bilateral hip replacements Social History household members: spouse Smoking Status: Never smoker ROS ROS ED Constitutional Constitutional ED: Reports chills, fever(s) and sweats; Denies subjective Eyes Eyes: Denies blurry vision or change in vision ENT ENT ED: Denies ear pain, rhinorrhea or sore throat Cardiovascular Cardiovascular: Denies chest pain, orthopnea, palpitations, paroxysmal nocturnaldyspnea or racing heartbeat Respiratory/Chest Respiratory/Chest: Denies cough, dyspnea, dyspnea on exertion, orthopnea or paroxysmal nocturnal dyspnea Gastrointestinal Gastrointestinal: Denies abdominal pain, constipation, diarrhea or vomiting Genitourinary Genitourinary ED: Reports other Details: Patient does endorse urgency. ; Denies dysuria, hematuria or urinary frequency Musculoskeletal Musculoskeletal: Denies arthralgias or myalgias Integumentary Denies rash Neurologic Neurologic: Reports weakness; Denies paresthesias Hematologic/Lymphatic Hematologic/Lymphatic: Reports systems reviewed and no addt'l complaints, exceptas documented EXAM Physical Exam Const Vital Signs: 01/04/25 12:40 01/04/25 14:19 01/04/25 14:19 Temperature 100.4 F H 100.4 F H Temperature Source Oral Oral Pulse Rate 93 65 Respiratory Rate 18 30 H Respiratory Effort Respiratory Pattern Blood Pressure 133/65 H 124/61 H Blood Pressure Mean 87 82 Pulse Ox 96 96 Oxygen Delivery Method Room Air Room Air Room Air 01/04/25 14:19 01/04/25 15:00 01/04/25 16:00 Temperature 99.1 F 99.1 F Temperature Source Oral Oral Pulse Rate 63 64 Respiratory Rate 27 H 29 H Respiratory Effort Normal Respiratory Pattern Normal Blood Pressure 145/60 H 145/77 H Blood Pressure Mean 88 99 Pulse Ox 97 99 Oxygen Delivery Method Room Air Room Air 01/04/25 17:00 Temperature 98.9 F Temperature Source Oral Pulse Rate 75 Respiratory Rate 32 H Respiratory Effort Respiratory Pattern Blood Pressure 180/87 H Blood Pressure Mean 118 Pulse Ox 98 Oxygen Delivery Method Room Air Positive well nourished and well developed General Appearance ED: well developed and NAD; Negative for cyanotic, diaphoretic or pallor HEENT Reports dry mucous membranes HEENT Narrative: Head is atraumatic normocephalic. Ears normal. Nares patent. Posterior pharynx is normal. Mouth ED: Yes dry mucous membranes Mouth: dry mucous membranes Eyes PERRL and EOMs intact bilaterally General Eye ED: Negative for pale conjunctiva or scleral icterus Neck no lymphadenopathy and supple Chest Wall inspection of chest normal and palpation of chest normal Resp normal respiratory effort and clear to auscultation bilaterally Cardio regular rate, regular rhythm, S1 normal heart sound and no murmurs GI normal to inspection, nondistended, normoactive bowel sounds, non-tender, non-distended and no masses; Negative for hepatosplenomegaly Back/Spine no CVA tenderness Extremity normal to inspection General Extremety ED: Negative for edema General Extremity: Negative for edema Neuro oriented x3 and CN's II-XII intact bilaterally Sensorium / Orientation: alert Psych mental status grossly normal Skin no rashes or lesions noted, no wounds and skin turgor normal General Skin Exam: Negative for jaundice or pallor MDM MDM MDM Narrative Medical decision making narrative: Concern patient has recurrent urinary tract infection. Since there was concern for Pseudomonas and has history of Pseudomonas UTI will treat with meropenem persepsis order sets. Sepsis order set for initial workup was used as well. Sincehe has no respiratory symptoms no abnormal oscillatory findings legs chest x-raywas canceled. Patient is febrile in the emergency department. Prior records were reviewed and documented in the HPI narrative. History & Record Review Additional record(s) reviewed:: Prior inpatient record, Prior outpatient record,Prior ED visit and Prior labs Lab Data Attestation: I reviewed the patient's lab results. Lab results narrative: White count is slightly elevated 11.2 thousand with shift. There is no bandemia. Patient has mild anemia with an H&H 12.5 and 37.8. Comprehensive metabolic panel was an elevated BUN to creatinine ratio approximately 22-1. BUNis 26 with a creatinine of 1.18. Transaminases normal. Lactate is normal, 1.3. UA is pending. Labs: Laboratory Results - last 24 hr 01/04/25 01/04/25 14:06 15:11 WBC 11.2 H RBC 4.22 L Hgb 12.5 L Hct 37.8 L MCV 89.6 MCH 29.6 MCHC 33.1 RDW Std Deviation 40.8 RDW Coeff of Renato 12.6 Plt Count 279 MPV 9.3 Immature Gran % (Auto) 0.500 Neut % (Auto) 87.6 H Lymph % (Auto) 5.6 L [place] % (Auto) 5.5 Eos % (Auto) 0.4 Baso % (Auto) 0.4 Absolute Neuts (auto) 9.8 H Absolute Lymphs (auto) 0.62 L Nucleated RBC % 0 Sodium 134 Potassium 4.6 Chloride 101 Carbon Dioxide 21.3 Anion Gap 12 BUN 26 H Creatinine 1.18 Estim Creat Clear Calc 59.55 Est GFR (MDRD) Non-Af 62 BUN/Creatinine Ratio 22.3 H Glucose 129 H Lactic Acid 1.3 Calcium 9.9 Total Bilirubin 0.41 AST 25 ALT 36 Alkaline Phosphatase 104 Total Protein 7.7 Albumin 4.2 Globulin 3.5 Albumin/Globulin Ratio 1.2 Urine Color Yellow Urine Clarity Cloudy Urine pH 6.0 Ur Specific [place] 1.010 Urine Protein 100 H Urine Glucose (UA) Normal Urine Ketones Negative Urine Occult Blood 150 H Urine Nitrite Positive H Urine Bilirubin Negative Urine Urobilinogen Normal Ur Leukocyte Esterase 500 H Urine RBC 0-5 SEEN Urine WBC >100 SEEN Ur Squamous Epith Cells 0-5 SEEN Urine Bacteria 2+ Urine Mucus 0 SEEN Management Discussion w/another healthcare provider: Summer Nanny (Spoke with urologist, Dr. Guidry. Patient be admitted to his service. He was made aware of patient's history physical he is very much aware of the patient.) Discharge Plan Triage Chief Complaint: Fever ED Provider: Bill Gary Dx/Rx/DC Orders Clinical Impression: Complicated urinary tract infection, Hypertension, Obstructive sleep apnea, History of ureter stent, Failure of outpatient treatment, Rigor Prescriptions: No Action atorvastatin 40 MG tablet 40 mg PO QHS aspirin 81 MG tablet 81 mg PO QHS Patient Comments: [facility] tamsulosin 0.4 MG capsule 0.4 mg PO QHS finasteride 5 MG tablet 5 mg PO QHS Patient Comments: PROSTATE Cardura XL 4 MG tablet extended release 24hr 4 mg PO QHS multivitamin Tablet 1 tab PO DAILY losartan 50 mg tablet 50 mg PO DAILY gabapentin 100 mg capsule 200 mg PO QHS cholecalciferol (vitamin D3) [Vitamin D3] 25 mcg (1,000 unit) Capsule 25 mcg PO DAILY venlafaxine 150 mg capsule,extended release 24hr 150 mg PO DAILY Patient Comments: PT TAKES AT BEDTIME acetaminophen 500 mg capsule 1,000 mg PO Q4H PRN (Reason: pain) omeprazole 20 mg capsule,delayed release(DR/EC) 40 mg PO DAILY Zosyn in dextrose (iso-osm) 3.375 gram/50 mL piggyback 3.375 g IV Q8H 5 Days Rx Instructions: dx: pseudomonas infection. Stop date 01/02/25. Routine midline care per protocol. tramadol 50 mg tablet 50 mg PO 4X/DAY PRN (Reason: pain) ibuprofen 600 mg tablet 600 mg PO Q6H PRN (Reason: pain) Qty: 20 0RF levofloxacin 500 mg tablet 500 mg PO DAILY Qty: 7 0RF Primary Care Provider: Abe Gilmore Referrals: Abe Gilmore MD [Primary Care Provider] - Print Language: [place] African Disposition Disposition: Acute Care Hospital [facility] What to do if you have Problems For any increased pain, shortness of breath, bleeding, nausea or vomiting, chestpain, or any unexpected problems, contact your Primary Care Provider. Call [facility] ([phone]) or report to the closest Emergency Room. Call 911 if necessary. 01/04/25 1721 <Electronically signed by Bill Gary MD> Cosigner Signature (if applicable): CC: Dr. Abe Gilmore MD ~ Signed [facility] Work Phone: [phone] 136-673106-03-2025 [facility] Medical Records Department [address] [place] [id number] Discharge Summary 12/27/24 0726 MR#: [id number] Acct: [id number] Name: ZION MARSH Rep #: [id number] : 1945 79 From: Dennis Guidry MD PCP: Dr. Abe Gilmore MD Status:ADM IN [facility] Prov[facility] Date of Admission: 12/25/24 Date of Discharge: 12/27/24 Primary Care Physician: Dr. Abe Gilmore MD Consultations 12/25/24 21:37 Consult: Hospitalist Routine Consulting Provider: [facility] Reason for Consult: medical manegment EMERGENT Consult: No Notified: Yes Date Notified: 12/25/24 Time Notified: 22:34 Method of Notification: Text Consult: Infectious Disease Routine Consulting Provider: Triston Villarreal Reason for Consult: pseudomonas infection EMERGENT Consult: No Notified: Yes Date Notified: 12/26/24 Time Notified: 06:39 Method of Notification: Text Reason For Visit: UTI Diagnosis Discharge Diagnosis (1) Acute UTI: Status: Acute Code(s): N39.0 - Urinary tract infection, site not specified (2) History of ureter stent: Status: Acute (3) Hx of renal calculi: Status: Acute Code(s): Z87.442 - Personal history of urinary calculi Medications at Discharge Home Medications aspirin 81 mg tablet,delayed release 81 mg PO QHS BLOOD THINNER 04/04/15 atorvastatin 40 mg tablet 40 mg PO QHS CHOLESTEROL 04/04/15 finasteride 5 mg tablet 5 mg PO QHS URINATION 04/04/15 tamsulosin 0.4 mg capsule 0.4 mg PO QHS URINATION 04/04/15 doxazosin 4 mg tablet,extended release 24 hr (Cardura XL) 4 mg PO QHS HEART 01/23/17 cholecalciferol (vitamin D3) 25 mcg (1,000 unit) capsule (Vitamin D3) 25 mcg PO DAILY SUPPLEMENT 12/17/21 gabapentin 100 mg capsule 200 mg PO QHS PAIN 12/17/21 losartan 50 mg tablet 50 mg PO DAILY BP 12/17/21 multivitamin 1 tab PO DAILY SUPPLEMENT 12/17/21 tramadol 50 mg tablet 50 mg PO 4X/DAY PRN pain 12/08/24 ibuprofen 600 mg tablet 600 mg PO Q6H PRN pain #20 tabs 12/14/24 acetaminophen 500 mg capsule 1,000 mg PO Q4H PRN pain 12/16/24 omeprazole 20 mg capsule,delayed release 40 mg PO DAILY 12/16/24 venlafaxine 150 mg capsule,extended release 24 hr 150 mg PO DAILY 12/16/24 Hospital Course Operations None Procedures None Summary of Care Provided Minutes Spent on Discharge: 35 Hospital Course: An 79-year-old gentleman who had a large stones in his left kidney he underwent ureteroscopy and laser lithotripsy of the stones, after surgery he was sent home with Cipro, he then presented to the emergency room with weakness UTI known to have a Pseudomonas UTI was sent home with antibiotics came back to the emergency room with continued weakness recognize that Pseudomonas was causing the UTI so at this point he was admitted for IV antibiotics consult was done the hospitalist and to infectious disease. Infectious disease recommending to go home with IV antibiotics per his recommendations with a midline which she sounds very reasonable. Patient is stable clinically stable white count is coming down still growing Pseudomonas in the urine provide the same Pseudomonas he had before needs to be treated appropriately with antibiotics he should be able go home today with IV antibiotics and follow-up with Dr. Palmer and also follow-up with myself next week for stent removal. Physical Exam Const alert and oriented x3 General Appearance: cooperative HEENT normocephalic, head/scalp atraumatic, EAC's normal and TM's normal bilaterally Eyes PERRL and EOMs intact bilaterally Pupil: sluggish Neck no lymphadenopathy, supple and no JVD General: trachea midline Lymph Lymphatic: no lymphadenopathy noted, lymphedema and lymphadenopathy Resp normal respiratory effort, normal air movement and clear to auscultation bilaterally Cardio regular rate, regular rhythm and peripheral pulses 2+ throughout GI soft to palpation, non-tender and non-distended Extremity normal capillary refill and no clubbing, cyanosis or edema General Extremity: no tenderness to palpation of joints or extremities Skin no rashes or lesions noted General Skin Exam: turgor normal Lesions: no lesions Rashes: no rashes Neuro CN's II-XII intact bilaterally Speech: speech normal Motor Exam: strength 5/5 throughout; Negative for general weakness Psych thought process normal, cooperative and affect normal Appearance: appropriate Weight / BMI Weight Weight: 103.2 kg Body Mass Index (BMI) 32.6 ABG / Lab / Microbiology Data 12/27/24 05:39 12/27/24 05:39 Laboratory: Laboratory Results - last 24 hr 12/27/24 05:39: WBC 13.7 H, RBC 3.49 L, Hgb 10.4 L, Hct 32.0 L, MCV 91.7, MCH 29.8, MCHC 32.5, RDW Std Deviation 42.9, RDW Coeff of Renato 12.9, Plt Count 159, MPV 9.6, Immature Gran % (Auto) 0.500, N eut % (Auto) 85.8 H, Lymph % (Auto) (more content not included)...[facility]06-01-2025 Discharge summary [facility] Medical Records Department [address] [place] [address] Emergency Department Summary 12/25/24 MR#: [id number] Acct: [id number] Name: ZION MARSH Rep #:[id number] : 1945 79 From: Steven Donald MD PCP: Dr. Abe Gilmore MD Status:REG E R Location: ED HPI History of Present Illness Chief Complaint: Weakness Informant: patient, spouse/S.O. and family Onset/Context/Timing Onset: Today Timing: Continuous Current Severity: Moderate Maximum Severity: Moderate Narrative Narrative: 79-year-old male history of kidney stones recent left ureteral stent about 2 weeks ago. Seen in theemergency department earlier today. Diagnosed with UTI. The emergency physician spoke to the patient's urologist. Patient and family and urologist was comfortable the patient being discharged home onoral antibiotic. Family states once he is was home. He developed a higher fever andjust generalizedweakness to the point that he could not stand. No vomiting or diarrhea. Post procedure 2 weeks ago he was on Cipro. He started having reaction to that so they took him off of it. Prior similar symptoms: Yes Recent Illness/Hospitalization: No PFSH PFSH Medical History Kidney stone on left side Loss of hearing Prostate disease Low iron Restless legs Hypertension History of MRSA infection Wears glasses Anxiety Arthritis High cholesterol Gastric reflux Non-smoker CPAP (continuous positive airway pressure) dependence History of pain when walking History of stress test History of echocardiogram Cardiology follow-up encounter BPH (benign prostatic hyperplasia) Dyslipidemia Nephrolithiasis Coronary artery disease Home Medications ?Medication ?Instructions ?Recorded ?Last Taken ?Type aspirin 81 mg tablet,delayed 81 mg PO QHS BLOOD THINNE R 04/04/15 12/07/24 History release atorvastatin 40 mg tablet 40 mg PO QHS CHOLESTEROL 04/1012/15/24 History finasteride 5 mg tablet 5 mg PO QHS URINATION 12/15/24 History tamsulosin 0.4 mg capsule 0.4 mg PO QHS URINATION 09/0 04/1012/15/24 History doxazosin 4 mg tablet,extended 4 mg PO QHS HEART 01/2312/15/24 History release 24 hr (Cardura XL) cholecalciferol (vitamin D3) 25 25 mcg PO DAILY SUPPLE MENT 12/17/21 12/15/24 History mcg (1,000 unit) capsule (Vitamin D3) gabapentin 100 mg capsule 200 mg PO QHS PAIN 12/17/21 12/15/24 History losartan 50 mg tablet 50 mg PO DAILY BP 12/17/21 0 12/16/24 History multivitamin 1 tab PO DAILY SUPPLEMENT 12/16/24 History tramadol 50 mg tablet 50 mg PO 4X/DAY PRN pain 12/15/24 History ibuprofen 600 mg tablet 600 mg PO Q6H PRN pain #20 t abs 12/14/24 12/16/24 Rx acetaminophen 500 mg capsule 1,000 mg PO Q4H PRN pain 12/16/24 12/16/24 History omeprazole 20 mg capsule,delayed 40 mg PO DAILY 12/16/24 History release venlafaxine 150 mg 150 mg PO DAILY 12/16/24 History capsule,extended release 24 hr cephalexin 500 mg capsule 500 mg PO Q6 #20 CAPSULES Unknown Rx Allergy/AdvReac Type Severity Reaction Status Date / Time No Known Allergies Allergy Verified 12/25/24 20:10 Surgical History S/P umbilical hernia repair, follow-up exam Hx of bilateral cataract extraction Hx of hernia repair Hx of appendectomy History of carpal tunnel release of both wrists Hx of repair of right rotator cuff Hx of repair of left rotator cuff Hx of bilateral hip replacements Social History household members: spouse Smoking Status: Never smoker ROS ROS ED Constitutional Constitutional ED: Reports fever(s) Eyes Eyes: Denies blurry vision ENT ENT ED: Denies ear pain Cardiovascular Cardiovascular: Denies chest pain Gastrointestinal Gastrointestinal: Denies abdominal pain, diarrhea, nausea or vomiting Genitourinary Genitourinary ED: Denies dysuria or hematuria Musculoskeletal Musculoskeletal: Denies arthralgias Integumentary Denies abscess Neurologic Neurologic: Reports weakness; Denies headache(s) Psychiatric Psychiatric: Denies anxiety Endocrine Endocrinology: Denies cold intolerance Hematologic/Lymphatic Hematologic/Lymphatic: Reports none Allergic/Immunologic Allergic/Immunologic ED: Denies mouth swelling, tongue swelling or urticaria EXAM Physical Exam Narrative Exam Narrative: 79-year-old male sitting upright in bed. Clinically does not feel well. Familyat bedside. His initial triage temp was 99.8 I retook it it was 103. Blood pressure 135/59. Pulse ox 94% on room air no hypoxia. H EENT exam pupils roundreactive light. Dry mucous membranes. Neck nontender no JVD. No meningismus. No lymphadenopathy. Lungs clear to auscultation bilaterally. Heart regular rhythm rate about 70 no murmur. Chest wall ribs nontender. Abdomen soft nontender. No peritoneal signs. Back nontender. No CVA tenderness. Moving all 4 extremities. Normal outbound telemarketing representative strength. Normal dorsi plantarflexion. Neurologically is awake and alert. Answering questions following commands. Clinically looks dehydrated. Const Vital Signs: 12/25/24 20:08 12/25/24 20:10 12/25/24 20:25 Temperature 99.8 F H 103 F H Temperature Source Oral Oral Pulse Rate 81 72 Respiratory Rate 18 38 H Respiratory Effort Short of Breath Labored Respiratory Pattern Tachypnea Blood Pressure 142/57 H 135/59 H Blood Pressure Mean 85 84 Pulse Ox 94 94 Oxygen Delivery Method Room Air Room Air 12/25/24 21:10 12/25/24 21:23 Temperature 101.4 F H 101.4 F H Temperature Source Oral Pulse Rate 66 66 Respiratory Rate 29 H 26 H Respiratory Effort Respiratory Pattern Blood Pressure 138/61 H 138/91 H Blood Pressure Mean 86 106 Pulse Ox 95 93 Oxygen Delivery Method Room Air Positive well nourished and well developed; Negative for cachectic or contractures General Appearance ED: well developed and NAD; Negative for cachectic, contractures, cyanotic, diaphoretic or pallor Nutritional Appearance: Negative for cachectic HEENT Reports dry mucous membranes Negative for trauma Mouth ED: Yes dry mucous membranes Mouth: dry mucous membranes Eyes PERRL and EOMs intact bilaterally General Eye ED: Negative for pale conjunctiva or scleral icterus Neck no lymphadenopathy, supple and no JVD Chest Wall inspection of chest normal and palpation of chest normal Resp normal respiratory effort and clear to auscultation bilaterally Cardio regular rate, regular rhythm, S1 normal heart sound, S2 normal heart sound and no murmurs GI normal to inspection, nondistended, normoactive bowel sounds, non-tender, non- distended and no masses Palpation: soft; Negative for tender, guarding or rebound tenderness present Back/Spine no CVA tenderness General Back: Negative for CVA tenderness Cervical Spine: Negative for cervical spine tenderness Thoracic Spine / Upper Back: Negative for thoracic spinal tenderness or paraspinal muscle tenderness Lumbar Spine / Lower Back: Negative for lumbar spinal tenderness Extremity normal to inspection General Extremety ED: Negative for edema or tenderness General Extremity: Negative for edema Neuro oriented x3 and CN's II-XII intact bilaterally Sensorium / Orientation: alert; Negative for orientation impaired, lethargic or stuporous Motor Exam: general weakness Psych mental status grossly normal Attitude: No agitated Mood & Affect: Negative for anxious or tearful Skin no rashes or lesions noted and no wounds General Skin Exam: Negative for jaundice or pallor Lesions: No lesion noted Rashes: No rashes noted Trauma: Negative for abrasion Wounds: Negative for wounds noted MDM MDM MDM Narrative Medical decision making narrative: 79-year-old male diagnosed with UTI today. Has a known stent. He went home he was so weak he could not stand. He has developed a fever of 103. I reviewed his test from earlier today. His stents in good position. He does have a UTI. He will be given IV antibiotics which I think he was already once earlier today. I will repeat his CBC and chemistry. we treated the liter normal saline for dehydration and Tylenol for his fever. Chest x-ray done earlier today which wasunremarkable. I spoke to Dr. Minh Guidry of urology. We discussed the patient's case he remembers the patient and remembers his visit from earlier today. He is comfortable admit the patient to his service. Repeat exam patient is doing wellat 9:14 PM. He will be admitted for UTI, generalized weakness, fever. History & Record Review Discussion w/independent historian: Patient and Family Additional record(s) reviewed:: Prior inpatient record, Prior outpatient record,Prior ED visit and Prior labs Lab Data Attestation: I reviewed the patient's lab results. Lab results narrative: CBC shows white count of 17.8 previously was 14.7 earlier today. H&H 11.9 and 34. Platelets 192. Chemistry shows sodium 134. Gap 12. BUN and creatinine 25 and 1.1. Glucose 134. Labs: Laboratory Results - last 24 hr 12/25/24 20:34 WBC 17.8 H RBC 3.91 L Hgb 11.9 L Hct 34.8 L MCV 89.0 MCH 30.4 MCHC 34.2 RDW Std Deviation 40.9 RDW Coeff of Renato 12.6 Plt Count 192 MPV 9.1 Immature Gran % (Auto) 0.900 Neut % (Auto) 91.4 H Lymph % (Auto) 4.0 L [place] % (Auto) 3.4 Eos % (Auto) 0.0 Baso % (Auto) 0.3 Absolute Neuts (auto) 16.3 H Absolute Lymphs (auto) 0.72 L Nucleated RBC % 0 Sodium 134 Potassium 3.8 Chloride 103 Carbon Dioxide 19.5 L Anion Gap 12 BUN 25 H Creatinine 1.10 Estim Creat Clear Calc 64.52 Est GFR (MDRD) Non-Af 68 BUN/Creatinine Ratio 22.3 H Glucose 134 H Calcium 8.9 Discharge Plan Triage Chief Complaint: Weakness ED Provider: Steven Donald Dx/Rx/DC Orders Prescriptions: No Action atorvastatin 40 MG tablet 40 mg PO QHS aspirin 81 MG tablet 81 mg PO QHS Patient Comments: HEART HEALTH tamsulosin 0.4 MG capsule 0.4 mg PO QHS finasteride 5 MG tablet 5 mg PO QHS Patient Comments: PROSTATE Cardura XL 4 MG tablet extended release 24hr 4 mg PO QHS multivitamin Tablet 1 tab PO DAILY losartan 50 mg tablet 50 mg PO DAILY gabapentin 100 mg capsule 200 mg PO QHS cholecalciferol (vitamin D3) [Vitamin D3] 25 mcg (1,000 unit) Capsule 25 mcg PO DAILY venlafaxine 150 mg capsule,extended release 24hr 150 mg PO DAILY Patient Comments: PT TAKES AT BEDTIME acetaminophen 500 mg capsule 1,000 mg PO Q4H PRN (Reason: pain) omeprazole 20 mg capsule,delayed release(DR/EC) 40 mg PO DAILY tramadol 50 mg tablet 50 mg PO 4X/DAY PRN (Reason: pain) ibuprofen 600 mg tablet 600 mg PO Q6H PRN (Reason: pain) Qty: 20 0RF cephalexin 500 mg capsule 500 mg PO Q6 Qty: 20 0RF Primary Care Provider: Abe Gilmroe Referrals: Abe Gilmore MD [Primary Care Provider] - Print Language: [place] African What to do if you have Problems For any increased pain, shortness of breath, bleeding, nausea or vomiting, chestpain, or any unexpected problems, contact your Primary Care Provider. Call [facility] ([phone]) or report tothe closest Emergency Room. Call 911 if necessary. 12/25/242144 Cosigner Signature (if applicable): CC: Dr. Abe Gilmore MD ~ Signed [facility]06-01-2025 History and physical note [facility] Medical Records Department [address] [place] [address] History & Physical Exam 12/25/242129 MR#: [id number] Acct: [id number] Name: ZION MARSH Rep #:[id number] : 1945 79 From: Dennis Guidry MD PCP: Dr. Abe Gilmore MD Status:REG E R Location: ED HPI - General General Date of Service: 12/25/24 Chief Complaint: Pyelonephritis HPI Narrative ZION MARSH, is a 79 M who presents to the hospital with continued fevers, fever 101, he presentedto the emergency room about 24 hours ago with fever a low white blood count, urine cultures were sent, prior urine cultures grew pansensitive Pseudomonas infection he had multiple large stones in thekidneys these were treated with laser lithotripsy and stent placement and now comes backto the hospital with fever elevated white blood count suspicious for left pyelonephritis. He will be admitted for IV antibiotics will consult infectious disease, will continue with ceftriaxone. Family is wondering if the stent should be removed they are asking it to be removed I do not think at this point until his infection is completely cured that we should remove the stent so we will do this day by day and decide when the stent comes out but I do not think Ishould remove the stent until his infection iscured. I explained this to the family. [facility] Medical History Kidney stone on left side Loss of hearing Prostate disease Low iron Restless legs Hypertension History of MRSA infection Wears glasses Anxiety Arthritis High cholesterol Gastric reflux Non-smoker CPAP (continuous positive airway pressure) dependence History of pain when walking History of stress test History of echocardiogram Cardiology follow-up encounter BPH (benign prostatic hyperplasia) Dyslipidemia Nephrolithiasis Coronary artery disease Home Medications ?Medication ?Instructions ?Recorded ?Last Taken ?Type aspirin 81 mg tablet,delayed 81 mg PO QHS BLOOD THINNE R 04/04/15 12/07/24 History release atorvastatin 40 mg tablet 40 mg PO QHS CHOLESTEROL 04/1012/15/24 History finasteride 5 mg tablet 5 mg PO QHS URINATION 12/15/24 History tamsulosin 0.4 mg capsule 0.4 mg PO QHS URINATION 04/1012/15/24 History doxazosin 4 mg tablet,extended 4 mg PO QHS HEART 01/2312/15/24 History release 24 hr (Cardura XL) cholecalciferol (vitamin D3) 25 25 mcg PO DAILY SUPPLE MENT 12/17/21 12/15/24 History mcg (1,000 unit) capsule (Vitamin D3) gabapentin 100 mg capsule 200 mg PO QHS PAIN 12/17/21 12/15/24 History losartan 50 mg tablet 50 mg PO DAILY BP 12/17/21 0 12/16/24 History multivitamin 1 tab PO DAILY SUPPLEMENT 12/16/24 History tramadol 50 mg tablet 50 mg PO 4X/DAY PRN pain 12/15/24 History ibuprofen 600 mg tablet 600 mg PO Q6H PRN pain #20 t abs 12/14/24 12/16/24 Rx acetaminophen 500 mg capsule 1,000 mg PO Q4H PRN pain 12/16/24 12/16/24 History omeprazole 20 mg capsule,delayed 40 mg PO DAILY 12/16/24 History release venlafaxine 150 mg 150 mg PO DAILY 12/16/24 History capsule,extended release 24 hr cephalexin 500 mg capsule 500 mg PO Q6 #20 CAPSULES Unknown Rx Allergy/AdvReac Type Severity Reaction Status Date / Time No Known Allergies Allergy Verified 12/25/24 20:10 Surgical History S/P umbilical hernia repair, follow-up exam Hx of bilateral cataract extraction Hx of hernia repair Hx of appendectomy History of carpal tunnel release of both wrists Hx of repair of right rotator cuff Hx of repair of left rotator cuff Hx of bilateral hip replacements Social History household members: spouse Smoking Status: Never smoker Vital Signs Vital Signs Vital Signs: 12/25/24 20:08 12/25/24 20:10 12/25/24 20:25 Temperature 99.8 F H 103 F H Temperature Source Oral Oral Pulse Rate 81 72 Respiratory Rate 18 38 H Respiratory Effort Short of Breath Labored Respiratory Pattern Tachypnea Blood Pressure 142/57 H 135/59 H Blood Pressure Mean 85 84 Pulse Ox 94 94 Oxygen Delivery Method Room Air Room Air 12/25/24 21:10 12/25/24 21:23 Temperature 101.4 F H 101.4 F H Temperature Source Oral Pulse Rate 66 66 Respiratory Rate 29 H 26 H Respiratory Effort Respiratory Pattern Blood Pressure 138/61 H 138/91 H Blood Pressure Mean 86 106 Pulse Ox 95 93 Oxygen Delivery Method Room Air Weight Weight: 103.4 kg Body Mass Index (BMI) 32.7 Physical Exam Const alert and oriented x3 General Appearance: cooperative HEENT normocephalic, head/scalp atraumatic, EAC's normal and TM's normal bilaterally Eyes PERRL and EOMs intact bilaterally Pupil: sluggish Neck no lymphadenopathy, supple and no JVD General: trachea midline Lymph Lymphatic: no lymphadenopathy noted, lymphedema and lymphadenopathy Resp normal respiratory effort, normal air movement and clear to auscultation bilaterally Cardio regular rate, regular rhythm and peripheral pulses 2+ throughout GI soft to palpation, non-tender and non-distended Extremity normal capillary refill and no clubbing, cyanosis or edema General Extremity: no tenderness to palpation of joints or extremities Skin no rashes or lesions noted General Skin Exam: turgor normal Lesions: no lesions Rashes: no rashes Neuro CN's II-XII intact bilaterally Speech: speech normal Motor Exam: strength 5/5 throughout; Negative for general weakness Psych thought process normal, cooperative and affect normal Appearance: appropriate Results Medical Records Data Attestation: I reviewed the patient's medical records Lab / Micro Data 12/25/24 20:34 12/25/24 20:34 Labs: Laboratory Results - last 24 hr 12/25/24 20:34: WBC 17.8 H, RBC 3.91 L, Hgb 11.9 L, Hct 34.8 L, MCV 89.0, MCH 30.4, MCHC 34.2, RDW Std Deviation 40.9, RDW Coeff of Renato 12.6, Plt Count 192, MPV 9.1, Immature Gran % (Auto) 0.900, Neut % (Auto) 91.4 H, Lymph % (Auto) 4.0 L, [place] % (Auto) 3.4, Eos % (Auto) 0.0, Baso % (Auto) 0.3, Absolute Neuts (auto)16.3 H, Absolute Lymphs (auto) 0.72 L, Nucleated RBC % 0 Assessment & Plan Assessment/Plan (1) Acute UTI: PLAN: Continue with ceftriaxone 1 g every 12 consult infectious disease. Continue with hydration. Continue with all his medications. Admit to the hospital (2) Kidney stone on left side: 12/25/242131 Cosigner Signature (if applicable): CC: Dr. Dennis Guidry MD; Dr. Abe Gilmore MD~ Signed [facility]06-01-2025 [facility] Medical Records Department [address] [place] [id number] History Physical Exam 12/25/242129 MR#: [id number] Acct: [id number] Name: ZION MARSH Rep #: [id number] : 1945 79 From: Dennis Guidry MD PCP: Dr. Abe Gilmore MD Status:[facility] ER Location: ED HPI - General General Date of Service: 12/25/24 Chief Complaint: Pyelonephritis HPI Narrative ZION MARSH, is a 79 M who presents to the hospital with continued fevers, fever 101, he presented to the emergency room about 24 hours ago with fever a low white blood count, urine cultures were sent, prior urine cultures grew pansensitive Pseudomonas infection he had multiple large stones in the kidneys these were treated with laser lithotripsy and stent placement and now comes back to the hospital with fever elevated white blood count suspicious for left pyelonephritis. He will be admitted for IV antibiotics will consult infectious disease, will continue with ceftriaxone. Family is wondering if the stent should be removed they are asking it to be removed I do not think at this point until his infection is completely cured that we should remove the stent so we will do this day by day and decide when the stent comes out but I do not think I should remove the stent until his infection is cured. I explained this to the family. [facility] Medical History Kidney stone on left side Loss of hearing Prostate disease Low iron Restless legs Hypertension History of MRSA infection Wears glasses Anxiety Arthritis High cholesterol Gastric reflux Non-smoker CPAP (continuous positive airway pressure) dependence History of pain when walking History of stress test History of echocardiogram Cardiology follow-up encounter BPH (benign prostatic hyperplasia) Dyslipidemia Nephrolithiasis Coronary artery disease Home Medications ???Medication ???Instructions ???Recorded ???Last Taken ???Type aspirin 81 mg tablet,delayed 81 mg PO QHS BLOOD THINNER 5 12/07/24 History release atorvastatin 40 mg tablet 40 mg PO QHS CHOLESTEROL 04/04/15 12/15/24 History finasteride 5 mg tablet 5 mg PO QHS URINATION 04/04/15 History tamsulosin 0.4 mg capsule 0.4 mg PO QHS URINATION 04/04/15 0 12/15/24 History doxazosin 4 mg tablet,extended 4 mg PO QHS HEART 01/23/17 5 History release 24 hr (Cardura XL) cholecalciferol (vitamin D3) 25 25 mcg PO DAILY SUPPLEMENT 2 12/15/24 History mcg (1,000 unit) capsule (Vitamin D3) gabapentin 100 mg capsule 200 mg PO QHS PAIN 12/17/21 History losartan 50 mg tablet 50 mg PO DAILY BP 12/17/21 5 History multivitamin 1 tab PO DAILY SUPPLEMENT 12/17/21 12/16/24 History tramadol 50 mg tablet 50 mg PO 4X/DAY PRN pain 12/08/24 12/15/24 History ibuprofen 600 mg tablet 600 mg PO Q6H PRN pain #20 tabs 12/16/24 Rx acetaminophen 500 mg capsule 1,000 mg PO Q4H PRN pain 12/16/24 12/16/24 History omeprazole 20 mg capsule,delayed 40 mg PO DAILY 12/16/24 12/16/24 H istory release venlafaxine 150 mg 150 mg PO DAILY 12/16/24 12/15/24 History capsule,extended release 24 hr cephalexin 500 mg capsule 500 mg PO Q6 #20 CAPSULES 12/25/24 Unknown Rx Allergy/AdvReac Type Severity Reaction Status Date / Time No Known Allergies Allergy Verified 12/25/24 20:10 Surgical History S/P umbilical hernia repair, follow-up exam Hx of bilateral cataract extraction Hx of hernia repair Hx of appendectomy History of carpal tunnel release of both wrists Hx of repair of right rotator cuff Hx of repair of left rotator cuff Hx of bilateral hip replacements Social History household members: spouse Smoking Status: Never smoker Vital Signs Vital Signs Vital Signs: 12/25/24 20:08 12/25/24 20:10 12/25/24 20:25 Temperature 99.8 F H 103 F H Temperature Source Oral Oral Pulse Rate 81 72 Respiratory Rate 18 38 H Respiratory Effort Short of Breath Labored Respiratory Pattern Tachypnea Blood Pressure 142/57 H 135/59 H Blood Pressure Mean 85 84 Pulse Ox 94 94 Oxygen Delivery Method Room Air Room Air 12/25/24 21:10 12/25/24 21:23 Temperature 101.4 F H 101.4 F H Temperature Source Oral Pulse Rate 66 66 Respiratory Rate 29 H 26 H Respiratory Effort Respiratory Pattern Blood Pressure 138/61 H 138/91 H Blood Pressure Mean 86 106 Pulse Ox 95 93 Oxygen Delivery Method Room Air Weight Weight: 103.4 kg Body Mass Index (BMI) 32.7 Physical Exam Const alert and oriented x3 General Appearance: cooperative HEENT norm (more content not included)...[facility]06-01-2025 Discharge summary Author Steven Donald [facility] Note Date/Time December 25, 2024 9:45p m [facility] Medical Records Department [address] [place] [address] Emergency Department Summary 12/25/24 MR#: [id number] Acct: [id number] Name: ZION MARSH Chuy Rep #:[id number] : 1945 79 From: Steven Donald MD PCP: Dr. Abe Gilmore MD Status:REG E R Location: ED HPI History of Present Illness Chief Complaint: Weakness Informant: patient, spouse/S.O. and family Onset/Context/Timing Onset: Today Timing: Continuous Current Severity: Moderate Maximum Severity: Moderate Narrative Narrative: 79-year-old male history of kidney stones recent left ureteral stent about 2 weeks ago. Seen in the emergency department earlier today. Diagnosed with UTI. The emergency physician spoke to the patient's urologist. Patient and family and urologist was comfortable the patient being discharged home on oral antibiotic. Family states once he is was home. He developed a higher fever andjust generalized weakness to the point that he could not stand. No vomiting or diarrhea. Post procedure 2 weeks ago he was on Cipro. He started having reaction to that so they took him off of it. Prior similar symptoms: Yes Recent Illness/Hospitalization: No PFSH PFSH Medical History Kidney stone on left side Loss of hearing Prostate disease Low iron Restless legs Hypertension History of MRSA infection Wears glasses Anxiety Arthritis High cholesterol Gastric reflux Non-smoker CPAP (continuous positive airway pressure) dependence History of pain when walking History of stress test History of echocardiogram Cardiology follow-up encounter BPH (benign prostatic hyperplasia) Dyslipidemia Nephrolithiasis Coronary artery disease Home Medications ?Medication ?Instructions ?Recorded ?Last Taken ?Type aspirin 81 mg tablet,delayed 81 mg PO QHS BLOOD THINNE R 04/04/15 12/07/24 History release atorvastatin 40 mg tablet 40 mg PO QHS CHOLESTEROL 04/1012/15/24 History finasteride 5 mg tablet 5 mg PO QHS URINATION 12/15/24 History tamsulosin 0.4 mg capsule 0.4 mg PO QHS URINATION 04/1012/15/24 History doxazosin 4 mg tablet,extended 4 mg PO QHS HEART 01/2312/15/24 History release 24 hr (Cardura XL) cholecalciferol (vitamin D3) 25 25 mcg PO DAILY SUPPLE MENT 12/17/21 12/15/24 History mcg (1,000 unit) capsule (Vitamin D3) gabapentin 100 mg capsule 200 mg PO QHS PAIN 12/17/21 12/15/24 History losartan 50 mg tablet 50 mg PO DAILY BP 12/17/21 0 12/16/24 History multivitamin 1 tab PO DAILY SUPPLEMENT 12/16/24 History tramadol 50 mg tablet 50 mg PO 4X/DAY PRN pain 12/15/24 History ibuprofen 600 mg tablet 600 mg PO Q6H PRN pain #20 t abs 12/14/24 12/16/24 Rx acetaminophen 500 mg capsule 1,000 mg PO Q4H PRN pain 12/16/24 12/16/24 History omeprazole 20 mg capsule,delayed 40 mg PO DAILY 12/16/24 History release venlafaxine 150 mg 150 mg PO DAILY 12/16/24 History capsule,extended release 24 hr cephalexin 500 mg capsule 500 mg PO Q6 #20 CAPSULES Unknown Rx Allergy/AdvReac Type Severity Reaction Status Date / Time No Known Allergies Allergy Verified 12/25/24 20:10 Surgical History S/P umbilical hernia repair, follow-up exam Hx of bilateral cataract extraction Hx of hernia repair Hx of appendectomy History of carpal tunnel release of both wrists Hx of repair of right rotator cuff Hx of repair of left rotator cuff Hx of bilateral hip replacements Social History household members: spouse Smoking Status: Never smoker ROS ROS ED Constitutional Constitutional ED: Reports fever(s) Eyes Eyes: Denies blurry vision ENT ENT ED: Denies ear pain Cardiovascular Cardiovascular: Denies chest pain Gastrointestinal Gastrointestinal: Denies abdominal pain, diarrhea, nausea or vomiting Genitourinary Genitourinary ED: Denies dysuria or hematuria Musculoskeletal Musculoskeletal: Denies arthralgias Integumentary Denies abscess Neurologic Neurologic: Reports weakness; Denies headache(s) Psychiatric Psychiatric: Denies anxiety Endocrine Endocrinology: Denies cold intolerance Hematologic/Lymphatic Hematologic/Lymphatic: Reports none Allergic/Immunologic Allergic/Immunologic ED: Denies mouth swelling, tongue swelling or urticaria EXAM Physical Exam Narrative Exam Narrative: 79-year-old male sitting upright in bed. Clinically does not feel well. Familyat bedside. His initial triage temp was 99.8 I retook it it was 103. Blood pressure 135/59. Pulse ox 94% on room air no hypoxia. H EENT exam pupils roundreactive light. Dry mucous membranes. Neck nontender no JVD. No meningismus. No lymphadenopathy. Lungs clear to auscultation bilaterally. Heart regular rhythm rate about 70 no murmur. Chest wall ribs nontender. Abdomen soft nontender. No peritoneal signs. Back nontender. No CVA tenderness. Moving all 4 extremities. Normal outbound telemarketing representative strength. Normal dorsi plantarflexion. Neurologically is awake and alert. Answering questions following commands. Clinically looks dehydrated. Const Vital Signs: 12/25/24 20:08 12/25/24 20:10 12/25/24 20:25 Temperature 99.8 F H 103 F H Temperature Source Oral Oral Pulse Rate 81 72 Respiratory Rate 18 38 H Respiratory Effort Short of Breath Labored Respiratory Pattern Tachypnea Blood Pressure 142/57 H 135/59 H Blood Pressure Mean 85 84 Pulse Ox 94 94 Oxygen Delivery Method Room Air Room Air 12/25/24 21:10 12/25/24 21:23 Temperature 101.4 F H 101.4 F H Temperature Source Oral Pulse Rate 66 66 Respiratory Rate 29 H 26 H Respiratory Effort Respiratory Pattern Blood Pressure 138/61 H 138/91 H Blood Pressure Mean 86 106 Pulse Ox 95 93 Oxygen Delivery Method Room Air Positive well nourished and well developed; Negative for cachectic or contractures General Appearance ED: well developed and NAD; Negative for cachectic, contractures, cyanotic, diaphoretic or pallor Nutritional Appearance: Negative for cachectic HEENT Reports dry mucous membranes Negative for trauma Mouth ED: Yes dry mucous membranes Mouth: dry mucous membranes Eyes PERRL and EOMs intact bilaterally General Eye ED: Negative for pale conjunctiva or scleral icterus Neck no lymphadenopathy, supple and no JVD Chest Wall inspection of chest normal and palpation of chest normal Resp normal respiratory effort and clear to auscultation bilaterally Cardio regular rate, regular rhythm, S1 normal heart sound, S2 normal heart sound and no murmurs GI normal to inspection, nondistended, normoactive bowel sounds, non-tender, non-distended and no masses Palpation: soft; Negative for tender, guarding or rebound tenderness present Back/Spine no CVA tenderness General Back: Negative for CVA tenderness Cervical Spine: Negative for cervical spine tenderness Thoracic Spine / Upper Back: Negative for thoracic spinal tenderness or paraspinal muscle tenderness Lumbar Spine / Lower Back: Negative for lumbar spinal tenderness Extremity normal to inspection General Extremety ED: Negative for edema or tenderness General Extremity: Negative for edema Neuro oriented x3 and CN's II-XII intact bilaterally Sensorium / Orientation: alert; Negative for orientation impaired, lethargic or stuporous Motor Exam: general weakness Psych mental status grossly normal Attitude: No agitated Mood & Affect: Negative for anxious or tearful Skin no rashes or lesions noted and no wounds General Skin Exam: Negative for jaundice or pallor Lesions: No lesion noted Rashes: No rashes noted Trauma: Negative for abrasion Wounds: Negative for wounds noted MDM MDM MDM Narrative Medical decision making narrative: 79-year-old male diagnosed with UTI today. Has a known stent. He went home he was so weak he could not stand. He has developed a fever of 103. I reviewed his test from earlier today. His stents in good position. He does have a UTI. He will be given IV antibiotics which I think he was already once earlier today. I will repeat his CBC and chemistry. we treated the liter normal saline for dehydration and Tylenol for his fever. Chest x-ray done earlier today which wasunremarkable. I spoke to Dr. Minh Guidry of urology. We discussed the patient's case he remembers the patient and remembers his visit from earlier today. He is comfortable admit the patient to his service. Repeat exam patient is doing wellat 9:14 PM. He will be admitted for UTI, generalized weakness, fever. History & Record Review Discussion w/independent historian: Patient and Family Additional record(s) reviewed:: Prior inpatient record, Prior outpatient record,Prior ED visit and Prior labs Lab Data Attestation: I reviewed the patient's lab results. Lab results narrative: CBC shows white count of 17.8 previously was 14.7 earlier today. H&H 11.9 and 34. Platelets 192. Chemistry shows sodium 134. Gap 12. BUN and creatinine 25 and 1.1. Glucose 134. Labs: Laboratory Results - last 24 hr 12/25/24 20:34 WBC 17.8 H RBC 3.91 L Hgb 11.9 L Hct 34.8 L MCV 89.0 MCH 30.4 MCHC 34.2 RDW Std Deviation 40.9 RDW Coeff of Renato 12.6 Plt Count 192 MPV 9.1 Immature Gran % (Auto) 0.900 Neut % (Auto) 91.4 H Lymph % (Auto) 4.0 L [place] % (Auto) 3.4 Eos % (Auto) 0.0 Baso % (Auto) 0.3 Absolute Neuts (auto) 16.3 H Absolute Lymphs (auto) 0.72 L Nucleated RBC % 0 Sodium 134 Potassium 3.8 Chloride 103 Carbon Dioxide 19.5 L Anion Gap 12 BUN 25 H Creatinine 1.10 Estim Creat Clear Calc 64.52 Est GFR (MDRD) Non-Af 68 BUN/Creatinine Ratio 22.3 H Glucose 134 H Calcium 8.9 Discharge Plan Triage Chief Complaint: Weakness ED Provider: Steven Donald Dx/Rx/DC Orders Prescriptions: No Action atorvastatin 40 MG tablet 40 mg PO QHS aspirin 81 MG tablet 81 mg PO QHS Patient Comments: HEART HEALTH tamsulosin 0.4 MG capsule 0.4 mg PO QHS finasteride 5 MG tablet 5 mg PO QHS Patient Comments: PROSTATE Cardura XL 4 MG tablet extended release 24hr 4 mg PO QHS multivitamin Tablet 1 tab PO DAILY losartan 50 mg tablet 50 mg PO DAILY gabapentin 100 mg capsule 200 mg PO QHS cholecalciferol (vitamin D3) [Vitamin D3] 25 mcg (1,000 unit) Capsule 25 mcg PO DAILY venlafaxine 150 mg capsule,extended release 24hr 150 mg PO DAILY Patient Comments: PT TAKES AT BEDTIME acetaminophen 500 mg capsule 1,000 mg PO Q4H PRN (Reason: pain) omeprazole 20 mg capsule,delayed release(DR/EC) 40 mg PO DAILY tramadol 50 mg tablet 50 mg PO 4X/DAY PRN (Reason: pain) ibuprofen 600 mg tablet 600 mg PO Q6H PRN (Reason: pain) Qty: 20 0RF cephalexin 500 mg capsule 500 mg PO Q6 Qty: 20 0RF Primary Care Provider: Abe Gilmore Referrals: Abe Gilmroe MD [Primary Care Provider] - Print Language: South African What to do if you have Problems For any increased pain, shortness of breath, bleeding, nausea or vomiting, chestpain, or any unexpected problems, contact your Primary Care Provider. Call [facility] ([phone]) or report to the closest Emergency Room. Call 911 if necessary. 12/25/24 2487 <Electronically signed by Steven Donald MD> Cosigner Signature (if applicable): CC: Dr. Abe Gilmore MD ~ Signed [facility] Work Phone: 1(726) 740-254106-01-2025 Radiology Diagnostic study note [facility] Imaging Services [address] [place] [address] Chest 1 View (Portable) MR#: [id number] Acct: [id number] Name: ZION MARSH Rep #: [id number] : 1945 M 79 From: Tyra Rizo MD PCP: Dr. Abe Gilmore MD Status: REG E R Study:Chest 1 View (Portable) Date of Exam: 12/25/24 Exam# [id number] Ordering Dr: Genie Merlos DO PROCEDURE: CHEST 1 VIEW (PORTABLE) 12/25/2024 REASON FOR EXAM: FEVER TECHNIQUE: Frontal view of the chest. COMPARISON: Chest radiograph 06/22/2019. FINDINGS: Hardware: None. Heart: The heart size is normal. Retrocardiac lucency, compatible with moderate- sized hiatal herniaseen on same-day CT abdomen pelvis. Lungs: Bibasilar atelectasis. No pleural effusion or pneumothorax. Bones: Degenerative changes are identified within the thoracic spine. RAD/Chest 1 View (Portable) IMPRESSION: No Acute Findings. Reading Location: [facility] CC: Dr. Zain Merlos DO; Dr. Abe Gilmore MD ~ Steel Sampler: Signed [facility]05-21-2025 Consult note [facility] Medical Records Department [address] [place] [address] Anesthesia Postop Eval I 12/14/24 1147 MR#: [id number] Acct: [id number] Name: ZION MARSH Rep #:[id number] : 1945 79 From: Aaron GALARZA PCP: Dr. Abe Gilmore MD Status:REG S DC Y Race: C Location: [place] [address] Anesthesia: Postop Eval I Current Vital Signs Temperature: 97.2 F Pulse Rate: 57 Blood Pressure: 146/63 Respiratory Rate: 16 Pulse Ox: 94 Assessment Airway patent: Yes Spontaneous unlabored respirations: Yes nausea: No Vomiting: No Anesthesia Complication: No Fluid Hydration Crystalloid volume administer (ml): 800 Total IV fluid infused: 800 Progress Note Anesthesia document: Postop Eval 1 completed: Yes 12/14/24 1147 LOCOMOTIVE SWITCH OPERATOR> Date _ Aaron Goncalvesbitt LOCOMOTIVE SWITCH OPERATOR Cosigner Signature: Date CC: ~ Signed [facility]05-21-2025 Discharge summary Author Dennis Guidry [facility] Note Date/Time December 14, 2024 9:24a m [facility] Medical Records Department [address] [facility] [place] [address] Instructions for Home/Discharge Instructions 12/14/24 0923 MR#: [id number] Acct: [id number] Name: ZION MARSH Rep #:[id number] : 1945 79 From: Dennis Guidry MD PCP: Dr. Abe Gilmroe MD Status:REG S DC Discharge Instructions Diet Discharge Diet: No restrictions DC O2, CPAP, BIPAP needs Home O2 Discharge instructions: No Dressing / Incision Discharge Activity: Return to Normal Activity and May Not Drive (while taking narcotic pain medications.) Dressing / Incision Call your doctor if you observe: Fever of 101 or Higher Follow Up Care Please Follow Up With: Dennis Guidry MD When: Call [phone] for an appointment Test Results: Test results from this visit will be discussed in further detail at your follow- up appointment, if applicable. Discharge Plan Admission Attending Provider: Dennis Guidry Primary Care Provider: Abe Gilmore Instructions Print Language: South African Discharge Orders/Prescriptions Prescriptions: No Action atorvastatin 40 MG tablet 40 mg PO QHS Patient Comments: CHOLESTEROL LOWERING aspirin 81 MG tablet 81 mg PO QHS Patient Comments: HEART HEALTH tamsulosin 0.4 MG capsule 0.4 mg PO QHS Patient Comments: PROSTATE finasteride 5 MG tablet 5 mg PO QHS Patient Comments: PROSTATE Venlafaxine Xr [Effexor Xr] 75 MG capsule 150 mg PO QHS Patient Comments: DEPRESSION Cardura XL 4 MG tablet extended release 24hr 4 mg PO QHS Omeprazole [Prilosec] 40 MG capsule 40 mg PO DAILY multivitamin Tablet 1 tab PO DAILY losartan 50 mg tablet 50 mg PO DAILY Patient Comments: TAKE 1 TABLET BY MOUTH EVERY DAY gabapentin 100 mg capsule 200 mg PO QHS Patient Comments: TAKE 2 CAPSULES BY MOUTH EVERY DAY AT BEDTIME cholecalciferol (vitamin D3) [Vitamin D3] 25 mcg (1,000 unit) Capsule 25 mcg PO DAILY tramadol 50 mg tablet 50 mg PO 4X/DAY PRN PRN (Reason: pain) Referrals / Follow Up: Abe Gilmore MD [Primary Care Provider] - Disposition Disposition (needs filled in before D/C Order can be placed): Home, Self Care 12/14/24923<Electronically signed by Dennis Guidry MD>Dennis Guidry MD CC: Dr. Abe Gilmore MD ~ Signed [facility] Work Phone: 1(911) 241-182605-21-2025 History and physical note Author Dennis Brea [facility] Note Date/Time December 14, 2024 9:23a [facility] Medical Records Department [address] [place] [address] History & Physical Exam 12/14/24921 MR#: [id number] Acct: [id number] Name: ZION MARSH Rep #:[id number] : 1945 79 From: Dennis Guidry MD PCP: Dr. Abe Gilmore MD Status:REG S DC Location: [place] [address]1 HPI - General General Date of Service: 12/14/24 Chief Complaint: Large left kidney stone HPI Narrative ZION MARSH, is a 79 M who presents to treat a large left kidney stone with laser lithotripsy and stent placement patient understands this possibly may needmore than 1 surgical procedure for such a large stone we will proceed with laserlithotripsy today. And stent placement [facility] Medical History (Updated 12/14/24 @ 09:[address] Dennis Guidry MD) Kidney stone on left side Loss of hearing Prostate disease Low iron Restless legs Hypertension History of MRSA infection Wears glasses Anxiety Arthritis High cholesterol Gastric reflux Non-smoker CPAP (continuous positive airway pressure) dependence History of pain when walking History of stress test History of echocardiogram Cardiology follow-up encounter BPH (benign prostatic hyperplasia) Dyslipidemia Nephrolithiasis Coronary artery disease Home Medications ?Medication ?Instructions ?Recorded ?Last Taken ?Type Venlafaxine Xr [Effexor Xr] 150 mg PO QHS DEPRESSION 0 04/04/15 12/13/24 History aspirin 81 mg tablet,delayed 81 mg PO QHS BLOOD THINNE R 04/04/15 12/07/24 History release atorvastatin 40 mg tablet 40 mg PO QHS CHOLESTEROL 04/1012/13/24 History finasteride 5 mg tablet 5 mg PO QHS URINATION 12/13/24 History tamsulosin 0.4 mg capsule 0.4 mg PO QHS URINATION 04/1012/13/24 History Omeprazole [Prilosec] 40 mg PO DAILY GERD 01/23/17 12/13/24 History doxazosin 4 mg tablet,extended 4 mg PO QHS HEART 01/2312/13/24 History release 24 hr (Cardura XL) cholecalciferol (vitamin D3) 25 25 mcg PO DAILY SUPPLE MENT 12/17/21 12/13/24 History mcg (1,000 unit) capsule (Vitamin D3) gabapentin 100 mg capsule 200 mg PO QHS PAIN 12/17/21 12/13/24 History losartan 50 mg tablet 50 mg PO DAILY BP 12/17/21 0 12/14/24 History multivitamin 1 tab PO DAILY SUPPLEMENT 12/13/24 History tramadol 50 mg tablet 50 mg PO 4X/DAY PRN PRN pain 12/08/24 12/13/24 History Allergy/AdvReac Type Severity Reaction Status Date / Time No Known Allergies Allergy Verified 12/08/24 14:16 Surgical History S/P umbilical hernia repair, follow-up exam Hx of bilateral cataract extraction Hx of hernia repair Hx of appendectomy History of carpal tunnel release of both wrists Hx of repair of right rotator cuff Hx of repair of left rotator cuff Hx of bilateral hip replacements Social History household members: spouse Smoking Status: Never smoker Vital Signs Vital Signs Vital Signs: 12/14/24 09:14 12/14/24 09:14 Temperature 98.9 F Temperature Source Temporal Pulse Rate 51 L Respiratory Rate 16 Respiratory Pattern Normal Blood Pressure 136/69 H Blood Pressure Mean 91 Blood Pressure Source Monitor Blood Pressure Position Semi-Fowlers Blood Pressure Location Left Arm Pulse Ox 100 Oxygen Delivery Method Room Air Weight Weight: 103 kg Body Mass Index (BMI) 32.5 Assessment & Plan Assessment/Plan (1) Kidney stone on left side: PLAN: Plan for laser lithotripsy and stent placement left side 12/14/24922 <Electronically signed by Dennis Guidry MD> Cosigner Signature (if applicable): CC: Dr. Dennis Guidry MD; Dr. Abe Gilmore MD~ Signed [facility] Work Phone: 1(241) 761-765905-21-2025 Procedure note [facility] Medical Records Department [address] [place] [address] Operative Report 12/14/24 1058 MR#: [id number] Acct: [id number] Name: ZION MARSH Rep #:[id number] : 1945 79 From: Dennis Guidry MD PCP: Dr. Abe Gilmore MD Status:REG S DC Location: [place] [address] Operative Report (Standard) Operative Information Date of Procedure: 12/14/24 Pre-Operative Diagnosis: Large left renal calculi Post-Operative Diagnosis: The same Surgery/Procedure Performed: Cystoscopy left ureteroscopy laser lithotripsy of stones and left stent placement instructional support specialist: No Type of Anesthesia: General RN Documented Start/Stop Times: Operation Date: 12/14/24 10:00 Case Time Into Pre-Op 12/14/24 08:50 Out of Pre-Op 12/14/24 09:46 Anesthesia Start 12/14/24 09:49 Into Room 12/14/24 09:49 Procedure Start 12/14/24 10:04 Procedure End 12/14/24 10:56 Procedure Start Time: 10:04 Procedure Stop Time: 10:56 Select all DRAINS/GRAFTS/IMPLANTS that apply: Drains Drain details: Left stent 6x 26 Estimated Blood Loss: None Specimen collected: No Description of surgery: This is a an 79-year-old male with been having gross hematuria and workup he wasfound to have multiple large stone in the left kidney bladder was otherwise normal does have an enlarged prostate but he claims to be urinating okay does a little bit of retention of urine when he urinates but minimal symptoms. Workup found to have multiple large stones in left kidney this is probably the most likely source of his hematuria is a small stone in the right kidney organ to watch today regular plan the laser the stone in the left kidney he will need a stent because a large stone burden Patient was taken back to the operating room after induction of anesthesia he was placed in dorsolithotomy position. The penis testicles were prepped and draped in usual fashion went into the bladderwith a flexible ureteroscope was able to identify the right ureteral orifice use a Glidewire to cannulate the right ureteral orifice and over the wire went in with a flexible ureteroscope and then went up the ureter and it went up the renal pelvis and then from the renal pelvis I went up into the midpole calyx and encountered the first large stone energy settings were 80 Hz and 0.1 J lasered the stone completely into small dust pieces some of the fragments went to the upper pole I then went to t upper bone finish lasering these pieces and the dust I then performed ureteroscopy and then found another fragment in the lower pole of the left kidney this was lasered again into dust using the energy settings of 100 Hz and 0.1 J, 20 W. Once this was lasered completely went back to the renal pelvis just a bunch of dust fragments in the renal pelvis no major fragments were left I worked my waydown the ureter no other fragments along the course of the ureter no injury trauma or damage to theureter put a wire up into the kidney and then over the wire backloaded the cystoscope and then put a stent up in the left kidney also during the ureteroscopy pick case I did drain the bladder with a 12 [place] Islander red rubber catheter to decompress the bladder. After the stent was in place the wire was coiled and removed and the stent coiled in the kidney bladder good position patient's bladder was drained he is taken back to the PACUin good condition we will see him in 2 weeks for cystoscopy stent removal Surgical Findings: Multiple large stones lasered completely into dust and left kidney Complications Complications: No Admit VTE Documentation VTE Present on Admission: No VTE Mechan Device Prophylaxis: SCD's VTE Pharm Prophylaxis ordered?: No 12/14/24 1101 Cosigner Signature (if applicable): CC: Dr. Dennis Guidry MD; Dr. Abe Gilmore MD~ Signed [facility]05-21-2025 Consult note Author Chai Durand [facility] Note Date/Time December 14, 2024 8:45a m [facility] Medical Records Department [address] [place] [address] Pre-Anesthesia Evaluation 12/14/24 0844 MR#: [id number] Acct: [id number] Name: ZION MARSH Rep #:[id number] : 1945 79 From: Chai Durand MD PCP: Dr. Abe Gilmore MD Status:REG S DC Y Race: C Location: [place] [address] ASA Classification* ASA Classification ASA Classification: 2 Assessment & Plan Anesthesia* Anesthesia Assessment Anesthesia Assessment: Discussed sedation and/or anesthesia options, risks, benefits, and alternatives with patient/parents/legal guardian/POA. Questions invited. The patient/parents/legal guardian/POA seems to understand and agrees to proceedwith anesthesia plan. Reviewed the physical assessment, medical history, allergy history and patient home medications list prior to surgery/procedure/anesthetic and documented any changes. Performed airway and anesthesia risk assessments. Anesthesia Type Anesthesia Type: General Anesthesia Focused Assessment* Airway Assessment Mouth opens: >3 cm Mallampati Score: II Focused Labs Anesthesia Preop lab: CBC WBC 4.5 K/mm3 (4.4-11.0) 11/24/24 07:45 11/24/24 RBC 4.16 M/mm3 (4.6-6.2) L 11/24/24 07:45 11/24/24 Hgb 12.7 g/dL (13.0-16.5) L 11/24/24 07:45 5 Hct 37.5 % (40-54) L 11/24/24 07:45 11/24/24 Plt Count 141 K/mm3 (150-450) L 11/24/24 07:45 11/24/24 CHEMISTRY Potassium 4.2 mmol/L (3.3-5.1) 11/24/24 07:45 11/24/24 Sodium 135 mmol/L (133-145) 11/24/24 07:45 11/24/24 Magnesium 2.3 mg/dL (1.6-2.6) 12/20/21 11:50 12/20/21 BUN 20 mg/dL (4-19) H 11/24/24 07:45 11/24/24 Creatinine 1.18 mg/dL (0.70-1.20) 11/24/24 07:45 11/24/24 Glucose 140 mg/dL (70-99) H 11/24/24 07:45 11/24/24 POC Glucose 185 mg/dL (74-106) H 12/20/21 18:14 12/20/21 COAG Pre-Assessment Diagnosis/Proposed Procedure Planned Operative Procedure(s): CYSTO LEFT URETEROSCOPY LASER STONE LEFT STENT Anesthesia History Anesthesia History - farm hand: Anesthesia History - farm hand Hx Hospitalization No 12/08/24 14:19 Any Problems With Anesthesia No 12/08/24 14:19 Cholinesterase deficiency No 12/08/24 14:19 You/Your Family Experience No 12/08/24 14:19 fever (hyperthermia) with Relationship Recent Exposure to Contagious No 10/26/24 17:03 Disease Does patient have nerve No 12/08/24 14:19 stimulator Patient instructed to have device shut off --Does patient have Pacemaker or ICD? When Was Last Pacemaker Check QUESTION #4 FULL TEXT: You/Your Family Experience fever (hyperthermia) with Anesthesia Last Oral Intake Last Oral intake: Last Oral Intake NPO since Meds taken in AM with sips of water? 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 - farm hand: PONV - farm hand Female No 12/08/24 14:19 HX of Motion Sickness No 12/08/24 14:19 HX of N/V After Surgery No 12/08/24 14:19 Non-Smoker Yes 12/08/24 14:19 Duration of Surgery greater Yes 12/08/24 14:19 than 60 minutes Number of Risk Factors 2 12/08/24 14:19 PONV Score Moderate Risk 12/08/24 14:19 Height & Weight Height & Weight: Anesthesia: Height & Weight Height 5 ft 10.08 in 11/24/24 07:20 Respiratory Assessment Respiratory Assessment - farm hand: Respiratory Tract Infection Hx - farm hand Hx Respiratory Tract Infection No 12/08/24 14:19 STOP Sleep Apnea STOP Sleep Apnea - farm hand: STOP Sleep Apnea - farm hand Hx Hypertension Yes: CONTROLLED WITH MEXD 12/08/24 14:19 Hx Sleep Apnea Yes 12/08/24 14:19 CPAP Yes 12/08/24 14:19 BIPAP No 12/08/24 14:19 Do you snore loudly (louder than talking or can be heard Do you often feel tired/ fatigued/ sleepy during daytime? Has anyone observed you stop breathing during sleep? STOP Results Positive 12/08/24 14:19 QUESTION #5 FULL TEXT : Do you snore loudly (louder than talking or can be heard through closed doors)? Tobacco Use History Tobacco Use History - farm hand: Tobacco Use History - farm hand Tobacco Use Smoking Status Never smoker 12/08/24 14:19 Hx Tobacco Use No 12/08/24 14:19 Years Smoking Packs Smoked per Day Smoking Cessation Date was within the last 15 years Hx Smoking Cessation Date Hx Smoking Cessation Counseling Hematologic Medial History Hematologic Hx - farm hand: Hematologic Medical Hx - plate painter Hx of Blood Transfusion No 12/08/24 14:19 Hx of Transfusion in last 3 No 12/08/24 14:19 Months Date of Last Transfusion (if within last 3 months) Ever experience any problems No 12/08/24 14:19 with transfusion(s)? Specify any problems Hx of Preganancy in last 3 N/A 12/08/24 14:19 Months Nurse Filling Out Transfusion DSCHRIBER 12/08/24 14:19 & Questions: Date: 12/08/24 12/08/24 14:19 Time: 14:20 12/08/24 14:19 Patient unable to answer at this time (ie. confused, unrespo /Reproduction History /Reproductive History - farm hand: /Reproductive Hx- farm hand Hx Now No 12/08/24 14:19 Gestational Age (in weeks): EDC: Hx Hx Para Hx Section SAB No 12/08/24 14:19 Active Medications Active Medications: Current Medications Generic Name Dose Route Start Last Admin Trade Name Freq PRN Reason Stop Dose Admin Cefazolin Sodium 2 gm/ Sodium 110 mls @ 150 mls/hr 12/14/24 10:00 Chloride IV 12/14/24 10:43 INTRAOP ONE PFSH Medical History Loss of hearing Prostate disease Low iron Restless legs Hypertension History of MRSA infection Wears glasses Anxiety Arthritis High cholesterol Gastric reflux Non-smoker CPAP (continuous positive airway pressure) dependence History of pain when walking History of stress test History of echocardiogram Cardiology follow-up encounter BPH (benign prostatic hyperplasia) Dyslipidemia Nephrolithiasis Coronary artery disease Home Medications ?Medication ?Instructions ?Recorded ?Last Taken ?Type Venlafaxine Xr [Effexor Xr] 150 mg PO QHS DEPRESSION 0 04/04/15 04/14/15 History aspirin 81 mg tablet,delayed 81 mg PO QHS BLOOD THINNE R 04/04/15 12/07/24 History release atorvastatin 40 mg tablet 40 mg PO QHS CHOLESTEROL 04/1004/14/15 History finasteride 5 mg tablet 5 mg PO QHS URINATION 04/14/15 History tamsulosin 0.4 mg capsule 0.4 mg PO QHS URINATION 04/1004/14/15 History Omeprazole [Prilosec] 40 mg PO DAILY GERD 01/23/17 12/20/21 History doxazosin 4 mg tablet,extended 4 mg PO QHS HEART 01/2312/20/21 History release 24 hr (Cardura XL) cholecalciferol (vitamin D3) 25 25 mcg PO DAILY SUPPLE MENT 12/17/21 Unknown History mcg (1,000 unit) capsule (Vitamin D3) gabapentin 100 mg capsule 200 mg PO QHS PAIN 12/17/21 Unknown History losartan 50 mg tablet 50 mg PO DAILY BP 12/17/21 0 12/20/21 History multivitamin 1 tab PO DAILY SUPPLEMENT Unknown History tramadol 50 mg tablet 50 mg PO 4X/DAY PRN PRN pain 12/08/24 Unknown History Allergy/AdvReac Type Severity Reaction Status Date / Time No Known Allergies Allergy Verified 12/08/24 14:16 Surgical History S/P umbilical hernia repair, follow-up exam Hx of bilateral cataract extraction Hx of hernia repair Hx of appendectomy History of carpal tunnel release of both wrists Hx of repair of right rotator cuff Hx of repair of left rotator cuff Hx of bilateral hip replacements Social History household members: spouse Smoking Status: Never smoker Review of Systems (Anesthesia) ROS Narrative System reviewed and no additional complaints, except as documented. 12/14/24 0845 <Electronically signed by Chai Durand MD > Date _ Chai Durand MD Cosigner Signature: Date CC: ~ Signed [facility] Work Phone: 1(524) 187-127005-21-2025 Discharge summary [facility] Medical Records Department [address] [place] [id number] Instructions for Home/Discharge Instructions 12/14/2423 MR#: [id number] Acct: [id number] Name: ZION MARSH Rep #:[id number] : 1945 79 From: Dennis Guidry MD PCP: Dr. Abe Gilmore MD Status:REG S DC Discharge Instructions Diet Discharge Diet: No restrictions DC O2, CPAP, BIPAP needs Home O2 Discharge instructions: No Dressing / Incision Discharge Activity: Return to Normal Activity and May Not Drive (while taking narcotic pain medications.) Dressing / Incision Call your doctor if you observe: Fever of 101 or Higher Follow Up Care Please Follow Up With: Dennis Guidry MD When: Call [phone] for an appointment Test Results: Test results from this visit will be discussed in further detail at your follow- up appointment, if applicable. Discharge Plan Admission Attending Provider: Dennis Guidry Primary Care Provider: Abe Gilmore Instructions Print Language: South African Discharge Orders/Prescriptions Prescriptions: No Action atorvastatin 40 MG tablet 40 mg PO QHS Patient Comments: CHOLESTEROL LOWERING aspirin 81 MG tablet 81 mg PO QHS Patient Comments: HEART HEALTH tamsulosin 0.4 MG capsule 0.4 mg PO QHS Patient Comments: PROSTATE finasteride 5 MG tablet 5 mg PO QHS Patient Comments: PROSTATE Venlafaxine Xr [Effexor Xr] 75 MG capsule 150 mg PO QHS Patient Comments: DEPRESSION Cardura XL 4 MG tablet extended release 24hr 4 mg PO QHS Omeprazole [Prilosec] 40 MG capsule 40 mg PO DAILY multivitamin Tablet 1 tab PO DAILY losartan 50 mg tablet 50 mg PO DAILY Patient Comments: TAKE 1 TABLET BY MOUTH EVERY DAY gabapentin 100 mg capsule 200 mg PO QHS Patient Comments: TAKE 2 CAPSULES BY MOUTH EVERY DAY AT BEDTIME cholecalciferol (vitamin D3) [Vitamin D3] 25 mcg (1,000 unit) Capsule 25 mcg PO DAILY tramadol 50 mg tablet 50 mg PO 4X/DAY PRN PRN (Reason: pain) Referrals / Follow Up: Abe Gilmore MD [Primary Care Provider] - Disposition Disposition (needs filled in before D/C Order can be placed): Home, Self Care 12/14/24 0924Dennis Guidry MD CC: Dr. Abe Gilmore MD ~ Signed [facility]05-21-2025 History and physical note [facility] Medical Records Department [address] [place] [address] History & Physical Exam 12/14/24921 MR#: [id number] Acct: [id number] Name: ZION MARSH Rep #:[id number] : 1945 79 From: Dennis Guidry MD PCP: Dr. Abe Gilmore MD Status:REG S ID Location: [place] [address] HPI - General General Date of Service: 12/14/24 Chief Complaint: Large left kidney stone HPI Narrative ZION MARSH, is a 79 M who presents to treat a large left kidney stone with laser lithotripsy and stent placement patient understands this possibly may needmore than 1 surgical procedure for such a large stone we will proceed with laserlithotripsy today. And stent placement [facility] Medical History (Updated 12/14/24 @ 09:[address] Dennis Guidry MD) Kidney stone on left side Loss of hearing Prostate disease Low iron Restless legs Hypertension History of MRSA infection Wears glasses Anxiety Arthritis High cholesterol Gastric reflux Non-smoker CPAP (continuous positive airway pressure) dependence History of pain when walking History of stress test History of echocardiogram Cardiology follow-up encounter BPH (benign prostatic hyperplasia) Dyslipidemia Nephrolithiasis Coronary artery disease Home Medications ?Medication ?Instructions ?Recorded ?Last Taken ?Type Venlafaxine Xr [Effexor Xr] 150 mg PO QHS DEPRESSION 0 04/04/15 12/13/24 History aspirin 81 mg tablet,delayed 81 mg PO QHS BLOOD THINNE R 04/04/15 12/07/24 History release atorvastatin 40 mg tablet 40 mg PO QHS CHOLESTEROL 04/1012/13/24 History finasteride 5 mg tablet 5 mg PO QHS URINATION 12/13/24 History tamsulosin 0.4 mg capsule 0.4 mg PO QHS URINATION 04/1012/13/24 History Omeprazole [Prilosec] 40 mg PO DAILY GERD 01/23/17 12/13/24 History doxazosin 4 mg tablet,extended 4 mg PO QHS HEART 01/2312/13/24 History release 24 hr (Cardura XL) cholecalciferol (vitamin D3) 25 25 mcg PO DAILY SUPPLE MENT 12/17/21 12/13/24 History mcg (1,000 unit) capsule (Vitamin D3) gabapentin 100 mg capsule 200 mg PO QHS PAIN 12/17/21 12/13/24 History losartan 50 mg tablet 50 mg PO DAILY BP 12/17/21 0 12/14/24 History multivitamin 1 tab PO DAILY SUPPLEMENT 12/13/24 History tramadol 50 mg tablet 50 mg PO 4X/DAY PRN PRN pain 12/08/24 12/13/24 History Allergy/AdvReac Type Severity Reaction Status Date / Time No Known Allergies Allergy Verified 12/08/24 14:16 Surgical History S/P umbilical hernia repair, follow-up exam Hx of bilateral cataract extraction Hx of hernia repair Hx of appendectomy History of carpal tunnel release of both wrists Hx of repair of right rotator cuff Hx of repair of left rotator cuff Hx of bilateral hip replacements Social History household members: spouse Smoking Status: Never smoker Vital Signs Vital Signs Vital Signs: 12/14/24 09:14 12/14/24 09:14 Temperature 98.9 F Temperature Source Temporal Pulse Rate 51 L Respiratory Rate 16 Respiratory Pattern Normal Blood Pressure 136/69 H Blood Pressure Mean 91 Blood Pressure Source Monitor Blood Pressure Position Semi-Fowlers Blood Pressure Location Left Arm Pulse Ox 100 Oxygen Delivery Method Room Air Weight Weight: 103 kg Body Mass Index (BMI) 32.5 Assessment & Plan Assessment/Plan (1) Kidney stone on left side: PLAN: Plan for laser lithotripsy and stent placement left side 12/14/24922 Cosigner Signature (if applicable): CC: Dr. Dennis Guidry MD; Dr. Abe Gilmore MD~ Signed [facility]05-21-2025 [facility] Medical Records Department [address] [place] [address] History Physical Exam 12/14/24921 MR#: [id number] Acct: [id number] Name: ZION MARSH Rep #: [id number] : 1945 79 From: Dennis Guidry MD PCP: Dr. Abe Gilmore MD Status:REG [facility] Location: [place] [address] HPI - General General Date of Service: 12/14/24 Chief Complaint: Large left kidney stone HPI Narrative ZION MARSH, is a 79 M who presents to treat a large left kidney stone with laser lithotripsy and stent placement patient understands this possibly may need more than 1 surgical procedure for such a large stone we will proceed with laser lithotripsy today. And stent placement [facility] Medical History (Updated 12/14/24 @ 09:[address] Dennis Guidry MD) Kidney stone on left side Loss of hearing Prostate disease Low iron Restless legs Hypertension History of MRSA infection Wears glasses Anxiety Arthritis High cholesterol Gastric reflux Non-smoker CPAP (continuous positive airway pressure) dependence History of pain when walking History of stress test History of echocardiogram Cardiology follow-up encounter BPH (benign prostatic hyperplasia) Dyslipidemia Nephrolithiasis Coronary artery disease Home Medications ???Medication ???Instructions ???Recorded ???Last Taken ???Type Venlafaxine Xr [Effexor Xr] 150 mg PO QHS DEPRESSION 04/04/15 12/13/24 History aspirin 81 mg tablet,delayed 81 mg PO QHS BLOOD THINNER 5 12/07/24 History release atorvastatin 40 mg tablet 40 mg PO QHS CHOLESTEROL 04/04/15 12/13/24 History finasteride 5 mg tablet 5 mg PO QHS URINATION 04/04/15 History tamsulosin 0.4 mg capsule 0.4 mg PO QHS URINATION 04/04/15 0 12/13/24 History Omeprazole [Prilosec] 40 mg PO DAILY GERD 01/23/1712/13 History doxazosin 4 mg tablet,extended 4 mg PO QHS HEART 01/23/17 5 History release 24 hr (Cardura XL) cholecalciferol (vitamin D3) 25 25 mcg PO DAILY SUPPLEMENT 2 12/13/24 History mcg (1,000 unit) capsule (Vitamin D3) gabapentin 100 mg capsule 200 mg PO QHS PAIN 12/17/21 History losartan 50 mg tablet 50 mg PO DAILY BP 12/17/21 5 History multivitamin 1 tab PO DAILY SUPPLEMENT 12/17/21 12/13/24 History tramadol 50 mg tablet 50 mg PO 4X/DAY PRN PRN pain 12/0812/13/24 History Allergy/AdvReac Type Severity Reaction Status Date / Time No Known Allergies Allergy Verified 12/08/24 14:16 Surgical History S/P umbilical hernia repair, follow-up exam Hx of bilateral cataract extraction Hx of hernia repair Hx of appendectomy History of carpal tunnel release of both wrists Hx of repair of right rotator cuff Hx of repair of left rotator cuff Hx of bilateral hip replacements Social History household members: spouse Smoking Status: Never smoker Vital Signs Vital Signs Vital Signs: 12/14/24 09:14 12/14/24 09:14 Temperature 98.9 F Temperature Source Temporal Pulse Rate 51 L Respiratory Rate 16 Respiratory Pattern Normal Blood Pressure 136/69 H Blood Pressure Mean 91 Blood Pressure Source Monitor Blood Pressure Position Semi-Fowlers Blood Pressure Location Left Arm Pulse Ox 100 Oxygen Delivery Method Room Air Weight Weight: 103 kg Body Mass Index (BMI) 32.5 Assessment Plan Assessment/Plan (1) Kidney stone on left side: PLAN: Plan for laser lithotripsy and stent placement left side 12/14/24 0923 Cosigner Signature (if applicable): CC: Dr. Dennis Guidry MD; Dr. Abe Gilmore MD [facility] Consult [address] [facility] Medical Records Department [address] [place] [address] Pre-Anesthesia Evaluation 12/14/24 0844 MR#: [id number] Acct: [id number] Name: ZION MARSH Rep #:[id number] : 1945 79 From: Chai Durand MD PCP: Dr. Abe Gilmore MD Status:REG S DC Y Race: C Location: [place] [address] ASA Classification* ASA Classification ASA Classification: 2 Assessment & Plan Anesthesia* Anesthesia Assessment Anesthesia Assessment: Discussed sedation and/or anesthesia options, risks, benefits, and alternatives with patient/parents/legal guardian/POA. Questions invited. The patient/parents/legal guardian/POA seems to understand and agrees to proceedwith anesthesia plan. Reviewed the physical assessment, medical history, allergy history and patient home medications list prior to surgery/procedure/anesthetic and documented any changes. Performed airway and anesthesia risk assessments. Anesthesia Type Anesthesia Type: General Anesthesia Focused Assessment* Airway Assessment Mouth opens: >3 cm Mallampati Score: II Focused Labs Anesthesia Preop lab: CBC WBC 4.5 K/mm3 (4.4-11.0) 11/24/24 07:45 11/24/24 RBC 4.16 M/mm3 (4.6-6.2) L 11/24/24 07:45 11/24/24 Hgb 12.7 g/dL (13.0-16.5) L 11/24/24 07:45 5 Hct 37.5 % (40-54) L 11/24/24 07:45 11/24/24 Plt Count 141 K/mm3 (150-450) L 11/24/24 07:45 11/24/24 CHEMISTRY Potassium 4.2 mmol/L (3.3-5.1) 11/24/24 07:45 11/24/24 Sodium 135 mmol/L (133-145) 11/24/24 07:45 11/24/24 Magnesium 2.3 mg/dL (1.6-2.6) 12/20/21 11:50 12/20/21 BUN 20 mg/dL (4-19) H 11/24/24 07:45 11/24/24 Creatinine 1.18 mg/dL (0.70-1.20) 11/24/24 07:45 11/24/24 Glucose 140 mg/dL (70-99) H 11/24/24 07:45 11/24/24 POC Glucose 185 mg/dL (74-106) H 12/20/21 18:14 12/20/21 COAG Pre-Assessment Diagnosis/Proposed Procedure Planned Operative Procedure(s): CYSTO LEFT URETEROSCOPY LASER STONE LEFT STENT Anesthesia History Anesthesia History - farm hand: Anesthesia History - farm hand Hx Hospitalization No 12/08/24 14:19 Any Problems With Anesthesia No 12/08/24 14:19 Cholinesterase deficiency No 12/08/24 14:19 You/Your Family Experience No 12/08/24 14:19 fever (hyperthermia) with Relationship Recent Exposure to Contagious No 10/26/24 17:03 Disease Does patient have nerve No 12/08/24 14:19 stimulator Patient instructed to have device shut off --Does patient have Pacemaker or ICD? When Was Last Pacemaker Check QUESTION #4 FULL TEXT: You/Your Family Experience fever (hyperthermia) with Anesthesia Last Oral Intake Last Oral intake: Last Oral Intake NPO since Meds taken in AM with sips of water? 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 - farm hand: PONV - farm hand Female No 12/08/24 14:19 HX of Motion Sickness No 12/08/24 14:19 HX of N/V After Surgery No 12/08/24 14:19 Non-Smoker Yes 12/08/24 14:19 Duration of Surgery greater Yes 12/08/24 14:19 than 60 minutes Number of Risk Factors 2 12/08/24 14:19 PONV Score Moderate Risk 12/08/24 14:19 Height & Weight Height & Weight: Anesthesia: Height & Weight Height 5 ft 10.08 in 11/24/24 07:20 Respiratory Assessment Respiratory Assessment - farm hand: Respiratory Tract Infection Hx - farm hand Hx Respiratory Tract Infection No 12/08/24 14:19 STOP Sleep Apnea STOP Sleep Apnea - farm hand: STOP Sleep Apnea - farm hand Hx Hypertension Yes: CONTROLLED WITH MEXD 12/08/24 14:19 Hx Sleep Apnea Yes 12/08/24 14:19 CPAP Yes 12/08/24 14:19 BIPAP No 12/08/24 14:19 Do you snore loudly (louder than talking or can be heard Do you often feel tired/ fatigued/ sleepy during daytime? Has anyone observed you stop breathing during sleep? STOP Results Positive 12/08/24 14:19 QUESTION #5 FULL TEXT : Do you snore loudly (louder than talking or can be heard through closeddoors)? Tobacco Use History Tobacco Use History - farm hand: Tobacco Use History - farm hand Tobacco Use Smoking Status Never smoker 12/08/24 14:19 Hx Tobacco Use No 12/08/24 14:19 Years Smoking Packs Smoked per Day Smoking Cessation Date was within the last 15 years Hx Smoking Cessation Date Hx Smoking Cessation Counseling Hematologic Medial History Hematologic Hx - farm hand: Hematologic Medical Hx - plate painter Hx of Blood Transfusion No 12/08/24 14:19 Hx of Transfusion in last 3 No 12/08/24 14:19 Months Date of Last Transfusion (if within last 3 months) Ever experience any problems No 12/08/24 14:19 with transfusion(s)? Specify any problems Hx of Preganancy in last 3 N/A 12/08/24 14:19 Months Nurse Filling Out Transfusion DSCHRIBER 12/08/24 14:19 & Questions: Date: 12/08/24 12/08/24 14:19 Time: 14:20 12/08/24 14:19 Patient unable to answer at this time (ie. confused, unrespo /Reproduction History /Reproductive History - farm hand: /Reproductive Hx- farm hand Hx Now No 12/08/24 14:19 Gestational Age (in weeks): EDC: Hx Hx Para Hx Section SAB No 12/08/24 14:19 Active Medications Active Medications: Current Medications Generic Name Dose Route Start Last Admin Trade Name Freq PRN Reason Stop Dose Admin Cefazolin Sodium 2 gm/ Sodium 110 mls @ 150 mls/hr 12/14/24 10:00 Chloride IV 12/14/24 10:43 INTRAOP ONE PFSH Medical History Loss of hearing Prostate disease Low iron Restless legs Hypertension History of MRSA infection Wears glasses Anxiety Arthritis High cholesterol Gastric reflux Non-smoker CPAP (continuous positive airway pressure) dependence History of pain when walking History of stress test History of echocardiogram Cardiology follow-up encounter BPH (benign prostatic hyperplasia) Dyslipidemia Nephrolithiasis Coronary artery disease Home Medications ?Medication ?Instructions ?Recorded ?Last Taken ?Type Venlafaxine Xr [Effexor Xr] 150 mg PO QHS DEPRESSION 0 04/04/15 04/14/15 History aspirin 81 mg tablet,delayed 81 mg PO QHS BLOOD THINNE R 04/04/15 12/07/24 History release atorvastatin 40 mg tablet 40 mg PO QHS CHOLESTEROL 04/1004/14/15 History finasteride 5 mg tablet 5 mg PO QHS URINATION 04/14/15 History tamsulosin 0.4 mg capsule 0.4 mg PO QHS URINATION 04/1004/14/15 History Omeprazole [Prilosec] 40 mg PO DAILY GERD 01/23/17 12/20/21 History doxazosin 4 mg tablet,extended 4 mg PO QHS HEART 01/2312/20/21 History release 24 hr (Cardura XL) cholecalciferol (vitamin D3) 25 25 mcg PO DAILY SUPPLE MENT 12/17/21 Unknown History mcg (1,000 unit) capsule (Vitamin D3) gabapentin 100 mg capsule 200 mg PO QHS PAIN 12/17/21 Unknown History losartan 50 mg tablet 50 mg PO DAILY BP 12/17/21 0 12/20/21 History multivitamin 1 tab PO DAILY SUPPLEMENT Unknown History tramadol 50 mg tablet 50 mg PO 4X/DAY PRN PRN pain 12/08/24 Unknown History Allergy/AdvReac Type Severity Reaction Status Date / Time No Known Allergies Allergy Verified 12/08/24 14:16 Surgical History S/P umbilical hernia repair, follow-up exam Hx of bilateral cataract extraction Hx of hernia repair Hx of appendectomy History of carpal tunnel release of both wrists Hx of repair of right rotator cuff Hx of repair of left rotator cuff Hx of bilateral hip replacements Social History household members: spouse Smoking Status: Never smoker Review of Systems (Anesthesia) ROS Narrative System reviewed and no additional complaints, except as documented. 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 Faxed over to [phone] Confirmation received. 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 Faxed over to [phone] Confirmation received. documented [facility] [facility] Medical Records Department [address] [place] [address] Anesthesia Postop Eval II 10/26/24 1858 MR#: [id number] Acct: [id number] Name: ZION MARSH Chuy Rep #:[id number] : 1945 79 From: Chai Durand MD PCP: Dr. Abe Gilmore MD Status:ADM I NO Y Race: C Location: MS3 MS306 -1 Anesthesia Postop Eval I Sum Postop Eval Completion status Anesthesia document: Postop Eval 1 completed: Yes Anesthesia Postop Eval I Summary Anesthesia Postop Eval I Summary: Anesthesia Postop Eval I: Assessment Summary Airway patent Yes 10/26/24 18:57 Spontaneous unlabored Yes 10/26/24 18:57 respirations Mental status Awake 10/26/24 18:57 nausea No 10/26/24 18:57 Vomiting No 10/26/24 18:57 Anesthesia Postop Eval I: Fluid Summary Crystalloid volume administer 400 10/26/24 18:57 (ml) Colloids volume administered ( ml) Blood Product volume administered (ml) Total IV fluid infused 400 10/26/24 18:57 Anesthesia Postop Eval I: Summary Notes Anesthesia Complication No 10/26/24 18:57 Anesthesia Complication Comment: Post-operative progress note Anesthesia: Postop Eval II Evaluation Mental status: Awake Pain Level: 1 nausea: No Vomiting: No 10/26/241857 > Date _ Chai Durand MD Cosign Signature: Date CC: ~ Signed [facility]04-02-2025 Consult note Author Chai Durand [facility] Note Date/Time October 26, 2024 10:[address] [facility] Medical Records Department [address] [place] [address] Anesthesia Postop Eval II 10/26/241857 MR#: [id number] Acct: [id number] Name: ZION MARSH Chuy Rep #:[id number] : 1945 79 From: Chai Durand MD PCP: Dr. Abe Gilmore MD Status:ADM I NO Y Race: C Location: MS3 MS306 -1 Anesthesia Postop Eval I Sum Postop Eval Completion status Anesthesia document: Postop Eval 1 completed: Yes Anesthesia Postop Eval I Summary Anesthesia Postop Eval I Summary: Anesthesia Postop Eval I: Assessment Summary Airway patent Yes 10/26/24 18:57 Spontaneous unlabored Yes 10/26/24 18:57 respirations Mental status Awake 10/26/24 18:57 nausea No 10/26/24 18:57 Vomiting No 10/26/24 18:57 Anesthesia Postop Eval I: Fluid Summary Crystalloid volume administer 400 10/26/24 18:57 (ml) Colloids volume administered ( ml) Blood Product volume administered (ml) Total IV fluid infused 400 10/26/24 18:57 Anesthesia Postop Eval I: Summary Notes Anesthesia Complication No 10/26/24 18:57 Anesthesia Complication Comment: Post-operative progress note Anesthesia: Postop Eval II Evaluation Mental status: Awake Pain Level: 1 nausea: No Vomiting: No 10/26/248 <Electronically signed by Chai Durand MD > Date _ Chai Durand MD Cosigner Signature: Date CC: ~ Signed [facility] Work Phone: 1(469) 819-620204-02-2025 Consult note Author Chai Durand [facility] Note Date/Time October 26, 2024 6:[address] [facility] Medical Records Department [address] [place] [address] Anesthesia Postop Eval I 10/26/241855 MR#: [id number] Acct: [id number] Name: ZION MARSH Rep #:[id number] : 1945 79 From: Chai Durand MD PCP: Dr. Abe Gilmore MD Status:ADM I NO Y Race: C [facility]: Postop Eval I Current Vital Signs Temperature: 97.2 F Pulse Rate: 62 Blood Pressure: 122/60 Respiratory Rate: 16 Pulse Ox: 96 Oxygen Delivery Method: Room Air Assessment Airway patent: Yes Spontaneous unlabored respirations: Yes Mental status: Awake nausea: No Vomiting: No Anesthesia Complication: No Fluid Hydration Crystalloid volume administer (ml): 400 Total IV fluid infused: 400 Progress Note Anesthesia document: Postop Eval 1 completed: Yes 10/26/241856 <Electronically signed by Chai Durand MD > Date _ Chai Durand MD Cosigner Signature: Date CC: ~ Signed [facility] Work Phone: 1(262) 792-878504-02-2025 Consult note Author Chai [facility] Note Date/Time October 26, 2024 5:[address] [facility] Medical Records Department [address] [place] [address] Pre-Anesthesia Evaluation 10/26/24 1749 MR#: [id number] Acct: [id number] Name: ZION MARSH Rep #:[id number] : 1945 79 From: Chai Durand MD PCP: Dr. Abe Gilmore MD Status:ADM I NO Y Race: C Location: NC3 MS306 - ASA Classification* ASA Classification ASA Classification: 3 and E Assessment & Plan Anesthesia* Anesthesia Assessment Anesthesia Assessment: Discussed sedation and/or anesthesia options, risks, benefits, and alternatives with patient/parents/legal guardian/POA. Questions invited. The patient/parents/legal guardian/POA seems to understand and agrees to proceedwith anesthesia plan. Reviewed the physical assessment, medical history, allergy history and patient home medications list prior to surgery/procedure/anesthetic and documented any changes. Performed airway and anesthesia risk assessments. Anesthesia Type Anesthesia Type: General Anesthesia Focused Assessment* Temperature: 98 F Pulse Rate: 66 Blood Pressure: 154/78 Respiratory Rate: 12 Pulse Ox: 99 Airway Assessment Mouth opens: >3 cm Mallampati Score: II Focused Labs Anesthesia Preop lab: CBC WBC 5.0 K/mm3 (4.4-11.0) 10/26/24 11:54 10/26/24 RBC 4.32 M/mm3 (4.6-6.2) L 10/26/24 11:54 10/26/24 Hgb 13.2 g/dL (13.0-16.5) 10/26/24 11:54 10/26/24 Hct 39.2 % (40-54) L 10/26/24 11:54 10/26/24 Plt Count 146 K/mm3 (150-450) L 10/26/24 11:54 10/26/24 CHEMISTRY Potassium 4.4 mmol/L (3.3-5.1) 10/26/24 11:54 10/26/24 Sodium 138 mmol/L (133-145) 10/26/24 11:54 10/26/24 Magnesium 2.3 mg/dL (1.6-2.6) 12/20/21 11:50 12/20/21 BUN 16 mg/dL (4-19) 10/26/24 11:54 10/26/24 Creatinine 0.94 mg/dL (0.70-1.20) 10/26/24 11:54 10/26/24 Glucose 121 mg/dL (70-99) H 10/26/24 11:54 10/26/24 POC Glucose 185 mg/dL (74-106) H 12/20/21 18:14 12/20/21 COAG Pre-Assessment Diagnosis/Proposed Procedure Planned Operative Procedure(s): Umbilical hernia repair Anesthesia History Anesthesia History - farm hand: Anesthesia History - farm hand Hx Hospitalization No 12/17/21 15:19 Any Problems With Anesthesia No 10/26/24 17:03 Cholinesterase deficiency No 10/26/24 17:03 You/Your Family Experience No 10/26/24 17:03 fever (hyperthermia) with Relationship Recent Exposure to Contagious No 10/26/24 17:03 Disease Does patient have nerve No 10/26/24 17:03 stimulator Patient instructed to have device shut off --Does patient have Pacemaker No 10/26/24 17:03 or ICD? When Was Last Pacemaker Check QUESTION #4 FULL TEXT: You/Your Family Experience fever (hyperthermia) with Anesthesia Last Oral Intake Last Oral intake: Last Oral Intake NPO since 08:00 10/26/24 17:03 Meds taken in AM with sips of water? 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 - farm hand: PONV - farm hand Female HX of Motion Sickness HX of N/V After Surgery Non-Smoker Duration of Surgery greater than 60 minutes Number of Risk Factors PONV Score Height & Weight Height & Weight: Anesthesia: Height & Weight Height 5 ft 10 in 10/26/24 17:03 Weight: 104.462 kg 10/26/24 17:03 Body Mass Index (BMI) 33.0 10/26/24 17:03 Respiratory Assessment Respiratory Assessment - farm hand: Respiratory Tract Infection Hx - farm hand Hx Respiratory Tract Infection No 10/26/24 17:03 STOP Sleep Apnea STOP Sleep Apnea - farm hand: STOP Sleep Apnea - farm hand Hx Hypertension Yes 10/26/24 17:03 Hx Sleep Apnea Yes 10/26/24 17:03 CPAP Yes 10/26/24 17:03 BIPAP No 10/26/24 17:03 Do you snore loudly (louder than talking or can be heard Do you often feel tired/ fatigued/ sleepy during daytime? Has anyone observed you stop breathing during sleep? STOP Results Positive 10/26/24 17:03 QUESTION #5 FULL TEXT : Do you snore loudly (louder than talking or can be heard through closed doors)? 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 Specify any problems Hx of Preganancy in last 3 Months Nurse Filling Out Transfusion & Questions: Date: Time: Patient unable to answer at this time (ie. confused, unrespo /Reproduction History /Reproductive History - farm hand: /Reproductive Hx- farm hand Hx Now No 10/26/24 17:03 Gestational Age (in weeks): EDC: Hx Hx Para Hx Section SAB No 10/26/24 17:03 Active Medications Active Medications: Current Medications Generic Name Dose Route Start Last Admin Trade Name Freq PRN Reason Stop Dose Admin Cefazolin Sodium 2 gm/ N/A 20 mls @ 400 mls/hr 10/26/24 18:00 IV 10/26/24 18:02 PREOP ONE [facility] Medical History Contact dermatitis due to poison francois Hypertension History of MRSA infection Wears glasses Anxiety Uses wheelchair Arthritis Kidney stones High cholesterol Gastric reflux Non-smoker CPAP (continuous positive airway pressure) dependence Sleep apnea History of pain when walking History of stress test History of echocardiogram Cardiology follow-up encounter BPH (benign prostatic hyperplasia) Dyslipidemia Nephrolithiasis Coronary artery disease Home Medications ?Medication ?Instructions ?Recorded ?Last Taken ?Type Venlafaxine Xr [Effexor Xr] 150 mg PO QHS DEPRESSION 0 04/04/15 04/14/15 History aspirin 81 mg tablet,delayed 81 mg PO QHS BLOOD THINNE R 04/04/15 04/14/15 History release atorvastatin 40 mg tablet 40 mg PO QHS CHOLESTEROL 04/1004/14/15 History finasteride 5 mg tablet 5 mg PO QHS URINATION 04/14/15 History tamsulosin 0.4 mg capsule 0.4 mg PO QHS URINATION 04/1004/14/15 History Omeprazole [Prilosec] 40 mg PO DAILY GERD 01/23/17 12/20/21 History doxazosin 4 mg tablet,extended 4 mg PO DAILY HEART 12/20/21 History release 24 hr (Cardura XL) cholecalciferol (vitamin D3) 25 25 mcg PO DAILY SUPPLE MENT 12/17/21 Unknown History mcg (1,000 unit) capsule (Vitamin D3) gabapentin 100 mg capsule 200 mg PO QHS PAIN 12/17/21 Unknown History losartan 50 mg tablet 50 mg PO DAILY BP 12/17/21 0 12/20/21 History multivitamin 1 tab PO DAILY SUPPLEMENT Unknown History zinc 50 mg tablet 50 mg PO DAILY SUPPLEMENT Unknown History doxycycline monohydrate 100 mg 100 mg PO BID 13 days # 26 caps 12/21/21 Unknown Rx capsule ferrous sulfate 325 mg (65 mg 325 mg PO 1200,1700 14 d ays #28 12/21/21 Unknown Rx iron) tablet (FeroSul) tabs folic acid 1 mg tablet 1 mg PO BIDCM 14 days #28 ta bs 12/21/21 Unknown Rx sennosides 8.6 mg-docusate sodium 2 tab PO BID #20 tab s 12/21/21 Unknown Rx 50 mg tablet (Stool Softener-Stimulant Laxative) rivaroxaban 10 mg tablet (Xarelto) 10 mg PO DAILY@0600 PRN SURGERY 10/26/24 Unknown History Allergy/AdvReac Type Severity Reaction Status Date / Time No Known Allergies Allergy Verified 10/26/24 11:34 Surgical History Hx of bilateral cataract extraction Hx of hernia repair Hx of appendectomy History of carpal tunnel release of both wrists Hx of repair of right rotator cuff Hx of repair of left rotator cuff Hx of bilateral hip replacements Social History household members: spouse Smoking Status: Never smoker Review of Systems (Anesthesia) ROS Narrative System reviewed and no additional complaints, except as documented. 10/26/24 1750 <Electronically signed by Chai Durand MD > Date _ Chai Durand MD Cosigner Signature: Date CC: ~ Signed [facility] Work Phone: 1(983) 643-812504-02-2025 Evaluation note* Diagnosis Onset Date Resolution Status Admit Date Incarcerated umbilical hernia acute October 26, 2024 5:41pm [facility] Work Phone: 1(344) 142-895904-02-2025 Consult note [facility] Medical Records Department [address] [place] [address] Anesthesia Postop Eval I 10/26/241855 MR#: [id number] Acct: [id number] Name: ZION MARSH Rep #:[id number] : 1945 79 From: Chai Durand MD PCP: Dr. Abe Gilmore MD Status:ADM I NO Y Race: C Location: [place] [address] Anesthesia: Postop Eval I Current Vital Signs Temperature: 97.2 F Pulse Rate: 62 Blood Pressure: 122/60 Respiratory Rate: 16 Pulse Ox: 96 Oxygen Delivery Method: Room Air Assessment Airway patent: Yes Spontaneous unlabored respirations: Yes Mental status: Awake nausea: No Vomiting: No Anesthesia Complication: No Fluid Hydration Crystalloid volume administer (ml): 400 Total IV fluid infused: 400 Progress Note Anesthesia document: Postop Eval 1 completed: Yes 10/26/241856 > Date _ Chai Durand MD Cosigner Signature: Date CC: ~ Signed [facility]04-02-2025 Evaluation note* Diagnosis Onset Date Resolution Status Admit Date Incarcerated umbilical hernia resolv ed October 26, 2024 4:27pm S/P umbilical hernia repair, follow-up exam acute November 09, 2024 2:22pm Kidney stone on left side acute December 14, 2024 8:39am [facility] Work Phone: 1(876) 916-622104-02-2025 Evaluation note* Diagnosis Onset Date Resolution Status Admit Date Incarcerated umbilical hernia resolv ed October 26, 2024 4:27pm S/P umbilical hernia repair, follow-up exam acute November 09, 2024 2:22pm Kidney stone on left side acute December 14, 2024 8:39am Acute UTI acute December 25, 2024 9:49pm History of ureter stent acute J une 2024 9:49pm Hx of renal calculi acute December 25, 2024 9:49pm Kidney stone on left side acute December 25, 2024 9:49pm Unable to ambulate acute December 252024 9:49pm Weakness generalized acute December 25, 2024 9:49pm [facility] Work Phone: 1(143) 966-515404-02-2025 Evaluation note* Diagnosis Onset Date Resolution Status Admit Date Incarcerated umbilical hernia resolv ed October 26, 2024 4:27pm S/P umbilical hernia repair, follow-up exam acute November 09, 2024 2:22pm Kidney stone on left side resolved December 14, 2024 8:39am History of ureter stent acute J une 2024 9:34pm Hx of renal calculi acute December 25, 2024 9:34pm Acute UTI inactive December 25, 2024 9:34pm Kidney stone on left side resolved December 25, 2024 9:34pm Unable to ambulate resolved December 252024 9:34pm Weakness generalized resolved December 25, 2024 9:34pm Complicated urinary tract infection acute January 04, 2025 7:13pm History of ureter stent acute J une 2024 7:13pm Hx of renal calculi acute January 04, 2025 7:13pm [facility] Work Phone: 1(464) 411-368504-02-2025 History and physical note Author Vickie Limon [facility] Note Date/Time October 26, 2024 4:26 pm [facility] Medical Records Department [address] [place] [address] H&P Exam - Surgical 10/26/24 1623 MR#: [id number] Acct: [id number] Name: ZION MARSH Rep #:[id number] : 1945 79 From: Vickie Limon MD PCP: Dr. Abe Gilmore MD Status:REG E R Location: ED HPI - General General Date of Admission: 10/26/24 HPI Narrative ZION MARSH, is a 79 M who presents due to umbilical hernia. Patient states hehas had this for 50 years. On Thursday he started noticed maybe a little bit bigger than usual also had not really been able to have a bowel movement. Patient was able to tolerate diet during this time. Patient did take some laxative last night was able to have a bowel movement today. However there is some color change at the umbilical hernia site which had him concerned so he came to the ER. ER physician was able to push some of the hernia back in but there is still some contents that were out. Unable to get a great story from patient if he has been able to push it back in or not sounds like he has been tried maybe for at least a year. Previous abdominal surgeries appendectomy and inguinal hernia surgery. [facility] Medical History Contact dermatitis due to poison francois Hypertension History of MRSA infection Wears glasses Anxiety Uses wheelchair Arthritis Kidney stones High cholesterol Gastric reflux Non-smoker CPAP (continuous positive airway pressure) dependence Sleep apnea History of pain when walking History of stress test History of echocardiogram Cardiology follow-up encounter BPH (benign prostatic hyperplasia) Dyslipidemia Nephrolithiasis Coronary artery disease Home Medications ?Medication ?Instructions ?Recorded ?Last Taken ?Type Venlafaxine Xr [Effexor Xr] 150 mg PO QHS DEPRESSION 0 04/04/15 04/14/15 History aspirin 81 mg tablet,delayed 81 mg PO QHS BLOOD THINNE R 04/04/15 04/14/15 History release atorvastatin 40 mg tablet 40 mg PO QHS CHOLESTEROL 04/1004/14/15 History finasteride 5 mg tablet 5 mg PO QHS URINATION 04/14/15 History sildenafil 100 mg tablet (Viagra) 100 mg PO DAILY PRN PRN Not 04/04/15 Unknown History Specified tamsulosin 0.4 mg capsule 0.4 mg PO QHS URINATION /0 04/1004/14/15 History Omeprazole [Prilosec] 40 mg PO DAILY GERD 01/23/17 12/20/21 History doxazosin 4 mg tablet,extended 4 mg PO DAILY HEART 12/20/21 History release 24 hr (Cardura XL) cholecalciferol (vitamin D3) 25 25 mcg PO DAILY SUPPLE MENT 12/17/21 Unknown History mcg (1,000 unit) capsule (Vitamin D3) gabapentin 100 mg capsule 200 mg PO QHS PAIN 12/17/21 Unknown History losartan 50 mg tablet 50 mg PO DAILY BP 12/17/21 0 12/20/21 History multivitamin 1 tab PO DAILY SUPPLEMENT Unknown History zinc 50 mg tablet 50 mg PO DAILY SUPPLEMENT Unknown History acetaminophen 500 mg tablet 1,000 mg (2 x 500 mg) PO Q 8 #100 12/21/21 Unknown Rx tabs doxycycline monohydrate 100 mg 100 mg PO BID 13 days # 26 caps 12/21/21 Unknown Rx capsule ferrous sulfate 325 mg (65 mg 325 mg PO 1200,1700 14 d ays #28 12/21/21 Unknown Rx iron) tablet (FeroSul) tabs folic acid 1 mg tablet 1 mg PO BIDCM 14 days #28 ta bs 12/21/21 Unknown Rx oxycodone 5 mg tablet 5 - 10 mg (1 - 2 x 5 mg) PO Q4H 12/21/21 Unknown Rx PRN PRN Pain Score 4-10 5 days #42 tabs rivaroxaban 10 mg tablet (Xarelto) 10 mg PO DAILY@0600 #13 tabs 12/21/21 Unknown Rx sennosides 8.6 mg-docusate sodium 2 tab PO BID #20 tab s 12/21/21 Unknown Rx 50 mg tablet (Stool Softener-Stimulant Laxative) prednisone 10 mg tablet 10 mg PO DIRECTED #30 tab s 01/28/23 Unknown Rx Allergy/AdvReac Type Severity Reaction Status Date / Time No Known Allergies Allergy Verified 10/26/24 11:34 Surgical History Hx of bilateral cataract extraction Hx of hernia repair Hx of appendectomy History of carpal tunnel release of both wrists Hx of repair of right rotator cuff Hx of repair of left rotator cuff Hx of bilateral hip replacements Social History (Updated 10/26/24 @ 14:[address] Bill Gary MD) household members: spouse Smoking Status: Never smoker Vital Signs Vital Signs Vital Signs: 10/26/24 11:31 10/26/24 14:27 Temperature 98.2 F Temperature Source Oral Pulse Rate 73 56 L Respiratory Rate 17 16 Blood Pressure 102/76 162/73 H Blood Pressure Mean 84 102 Pulse Ox 100 99 Oxygen Delivery Method Room Air Room Air Weight Weight: 230 lb 4.8 oz Body Mass Index (BMI) 33.0 Physical Exam Const alert, oriented x3 and no apparent distress HEENT normocephalic and head/scalp atraumatic Resp normal respiratory effort Cardio regular rate GI soft to palpation; Negative for non-distended GI Narrative: Umbilical hernia, incarcerated, tender while trying to reduce otherwise nontender, slight erythema likely due to previous pressure to attempt to reduce Palpation: Negative for guarding Extremity no clubbing, cyanosis or edema Skin no rashes or lesions noted Neuro CN's II-XII intact bilaterally Psych mental status grossly normal Results Lab / Micro Data 10/26/24 11:54 10/26/24 11:54 Labs: Laboratory Results - last 24 hr 10/26/24 11:54: WBC 5.0, RBC 4.32 L, Hgb 13.2, Hct 39.2 L, MCV 90.7, MCH 30.6, MCHC 33.7, RDW Std Deviation 41.7, RDW Coeff of Renato 12.8, Plt Count 146 L, MPV 9.7, Immature Gran % (Auto) 0.400, Neut % (Auto) 64.3, Lymph % (Auto) 21.6, [place] % (Auto) 8.3, Eos % (Auto) 4.4, Baso % (Auto) 1.0, Absolute Neuts (auto) 3.2, Absolute Lymphs (auto) 1.07, Nucleated RBC % 0, Sodium 138, Potassium 4.4, Chloride 104, Carbon Dioxide 25.2, Anion Gap 9, BUN 16, Creatinine 0.94, Estim Creat Clear Calc 75.87, Est GFR (MDRD) Non-Af 82, BUN/Creatinine Ratio 17.1, Glucose 121 H, Calcium 9.4, Total Bilirubin 0.43, AST 28, ALT 25, Alkaline Phosphatase 77, Total Protein 7.2, Albumin 4.4, Globulin 2.8, Albumin/Globulin Ratio 1.5, Lipase 25 10/26/24 14:19: Lactic Acid 1.7 10/26/24 14:43: Urine Color Yellow, Urine Clarity Clear, Urine pH 6.5, Ur Specific [place] 1.010, Urine Protein 30 H, Urine Glucose (UA) Normal, Urine Ketones Negative, Urine Occult Blood 25 H, Urine Nitrite Negative, Urine Bilirubin Negative, Urine Urobilinogen Normal, Ur Leukocyte Esterase 25 H, Urine RBC 0-5 SEEN, Urine WBC 0-5 SEEN, Ur Squamous Epith Cells 0-5 SEEN, Urine Bacteria 0 SEEN, Urine Mucus 0 SEEN Imaging Radiology Impression Abdomen/Pelvis CT 10/26/24 14:50 IMPRESSION: Bilateral nonobstructive intrarenal calculi more prominent on the left side. Umbilical hernia as described with increased density within the hernia as well as the anterior peritoneal fat just deep to the umbilicus suggestive of possible incarceration. Clinical correlation recommended. Reading Location: [facility]-1 Assessment & Plan Assessment/Plan (1) Incarcerated umbilical hernia: PLAN: Plan Discussed with patient and his plan for incarcerated medical hernia repair with possible mesh, possible bowel resection. Discussed procedure including but not limited to bleeding, infection, injury to another organ, recurrence and anesthesia patient had no other questions this time. Vickie Limon M.D. Pager: [phone] [facility] [address] [place] [address], [address] [place] [address] Office: [phone] 10/26/24 1625 <Electronically signed by Vickie Limon MD> Cosigner Signature (if applicable): CC: Dr. Vickie Limon MD; Dr. Abe Gilmore MD~ Signed [facility] Work Phone: 1(737) 138-448004-02-2025 Consult note [facility] Medical Records Department [address] [place] [address] Pre-Anesthesia Evaluation 10/26/24 1749 MR#: [id number] Acct: [id number] Name: ZION MARSH Rep #:[id number] : 1945 79 From: Chai Durand MD PCP: Dr. Abe Gilmore MD Status:ADM I NO Y Race: C Location: [place] [address] -1 ASA Classification* ASA Classification ASA Classification: 3 and E Assessment & Plan Anesthesia* Anesthesia Assessment Anesthesia Assessment: Discussed sedation and/or anesthesia options, risks, benefits, and alternatives with patient/parents/legal guardian/POA. Questions invited. The patient/parents/legal guardian/POA seems to understand and agrees to proceedwith anesthesia plan. Reviewed the physical assessment, medical history, allergy history and patient home medications list prior to surgery/procedure/anesthetic and documented any changes. Performed airway and anesthesia risk assessments. Anesthesia Type Anesthesia Type: General Anesthesia Focused Assessment* Temperature: 98 F Pulse Rate: 66 Blood Pressure: 154/78 Respiratory Rate: 12 Pulse Ox: 99 Airway Assessment Mouth opens: >3 cm Mallampati Score: II Focused Labs Anesthesia Preop lab: CBC WBC 5.0 K/mm3 (4.4-11.0) 10/26/24 11:54 10/26/24 RBC 4.32 M/mm3 (4.6-6.2) L 10/26/24 11:54 10/26/24 Hgb 13.2 g/dL (13.0-16.5) 10/26/24 11:54 10/26/24 Hct 39.2 % (40-54) L 10/26/24 11:54 10/26/24 Plt Count 146 K/mm3 (150-450) L 10/26/24 11:54 10/26/24 CHEMISTRY Potassium 4.4 mmol/L (3.3-5.1) 10/26/24 11:54 10/26/24 Sodium 138 mmol/L (133-145) 10/26/24 11:54 10/26/24 Magnesium 2.3 mg/dL (1.6-2.6) 12/20/21 11:50 12/20/21 BUN 16 mg/dL (4-19) 10/26/24 11:54 10/26/24 Creatinine 0.94 mg/dL (0.70-1.20) 10/26/24 11:54 10/26/24 Glucose 121 mg/dL (70-99) H 10/26/24 11:54 10/26/24 POC Glucose 185 mg/dL (74-106) H 12/20/21 18:14 12/20/21 COAG Pre-Assessment Diagnosis/Proposed Procedure Planned Operative Procedure(s): Umbilical hernia repair Anesthesia History Anesthesia History - farm hand: Anesthesia History - farm hand Hx Hospitalization No 12/17/21 15:19 Any Problems With Anesthesia No 10/26/24 17:03 Cholinesterase deficiency No 10/26/24 17:03 You/Your Family Experience No 10/26/24 17:03 fever (hyperthermia) with Relationship Recent Exposure to Contagious No 10/26/24 17:03 Disease Does patient have nerve No 10/26/24 17:03 stimulator Patient instructed to have device shut off --Does patient have Pacemaker No 10/26/24 17:03 or ICD? When Was Last Pacemaker Check QUESTION #4 FULL TEXT: You/Your Family Experience fever (hyperthermia) with Anesthesia Last Oral Intake Last Oral intake: Last Oral Intake NPO since 08:00 10/26/24 17:03 Meds taken in AM with sips of water? 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 - farm hand: PONV - farm hand Female HX of Motion Sickness HX of N/V After Surgery Non-Smoker Duration of Surgery greater than 60 minutes Number of Risk Factors PONV Score Height & Weight Height & Weight: Anesthesia: Height & Weight Height 5 ft 10 in 10/26/24 17:03 Weight: 104.462 kg 10/26/24 17:03 Body Mass Index (BMI) 33.0 10/26/24 17:03 Respiratory Assessment Respiratory Assessment - farm hand: Respiratory Tract Infection Hx - farm hand Hx Respiratory Tract Infection No 10/26/24 17:03 STOP Sleep Apnea STOP Sleep Apnea - farm hand: STOP Sleep Apnea - farm hand Hx Hypertension Yes 10/26/24 17:03 Hx Sleep Apnea Yes 10/26/24 17:03 CPAP Yes 10/26/24 17:03 BIPAP No 10/26/24 17:03 Do you snore loudly (louder than talking or can be heard Do you often feel tired/ fatigued/ sleepy during daytime? Has anyone observed you stop breathing during sleep? STOP Results Positive 10/26/24 17:03 QUESTION #5 FULL TEXT : Do you snore loudly (louder than talking or can be heard through closeddoors)? 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 Specify any problems Hx of Preganancy in last 3 Months Nurse Filling Out Transfusion & Questions: Date: Time: Patient unable to answer at this time (ie. confused, unrespo /Reproduction History /Reproductive History - farm hand: /Reproductive Hx- farm hand Hx Now No 10/26/24 17:03 Gestational Age (in weeks): EDC: Hx Hx Para Hx Section SAB No 10/26/24 17:03 Active Medications Active Medications: Current Medications Generic Name Dose Route Start Last Admin Trade Name Freq PRN Reason Stop Dose Admin Cefazolin Sodium 2 gm/ N/A 20 mls @ 400 mls/hr 10/26/24 18:00 IV 10/26/24 18:02 PREOP ONE [facility] Medical History Contact dermatitis due to poison francois Hypertension History of MRSA infection Wears glasses Anxiety Uses wheelchair Arthritis Kidney stones High cholesterol Gastric reflux Non-smoker CPAP (continuous positive airway pressure) dependence Sleep apnea History of pain when walking History of stress test History of echocardiogram Cardiology follow-up encounter BPH (benign prostatic hyperplasia) Dyslipidemia Nephrolithiasis Coronary artery disease Home Medications ?Medication ?Instructions ?Recorded ?Last Taken ?Type Venlafaxine Xr [Effexor Xr] 150 mg PO QHS DEPRESSION 0 04/04/15 04/14/15 History aspirin 81 mg tablet,delayed 81 mg PO QHS BLOOD THINNE R 04/04/15 04/14/15 History release atorvastatin 40 mg tablet 40 mg PO QHS CHOLESTEROL 04/1004/14/15 History finasteride 5 mg tablet 5 mg PO QHS URINATION 04/14/15 History tamsulosin 0.4 mg capsule 0.4 mg PO QHS URINATION 04/1004/14/15 History Omeprazole [Prilosec] 40 mg PO DAILY GERD 01/23/17 12/20/21 History doxazosin 4 mg tablet,extended 4 mg PO DAILY HEART 12/20/21 History release 24 hr (Cardura XL) cholecalciferol (vitamin D3) 25 25 mcg PO DAILY SUPPLE MENT 12/17/21 Unknown History mcg (1,000 unit) capsule (Vitamin D3) gabapentin 100 mg capsule 200 mg PO QHS PAIN 12/17/21 Unknown History losartan 50 mg tablet 50 mg PO DAILY BP 12/17/21 0 12/20/21 History multivitamin 1 tab PO DAILY SUPPLEMENT Unknown History zinc 50 mg tablet 50 mg PO DAILY SUPPLEMENT Unknown History doxycycline monohydrate 100 mg 100 mg PO BID 13 days # 26 caps 12/21/21 Unknown Rx capsule ferrous sulfate 325 mg (65 mg 325 mg PO 1200,1700 14 d ays #28 12/21/21 Unknown Rx iron) tablet (FeroSul) tabs folic acid 1 mg tablet 1 mg PO BIDCM 14 days #28 ta bs 12/21/21 Unknown Rx sennosides 8.6 mg-docusate sodium 2 tab PO BID #20 tab s 12/21/21 Unknown Rx 50 mg tablet (Stool Softener-Stimulant Laxative) rivaroxaban 10 mg tablet (Xarelto) 10 mg PO DAILY@0600 PRN SURGERY 10/26/24 Unknown History Allergy/AdvReac Type Severity Reaction Status Date / Time No Known Allergies Allergy Verified 10/26/24 11:34 Surgical History Hx of bilateral cataract extraction Hx of hernia repair Hx of appendectomy History of carpal tunnel release of both wrists Hx of repair of right rotator cuff Hx of repair of left rotator cuff Hx of bilateral hip replacements Social History household members: spouse Smoking Status: Never smoker Review of Systems (Anesthesia) ROS Narrative System reviewed and no additional complaints, except as documented. 10/26/24 1750 > Date _ Chai Durand MD Cosigner Signature: Date CC: ~ Signed [facility]04-02-2025 History and physical note [facility] Medical Records Department [address] [place] [address] H&P Exam - Surgical 10/26/24 1623 MR#: [id number] Acct: [id number] Name: ZION MARSH Rep #:[id number] : 1945 79 From: Vickie Limon MD PCP: Dr. Abe Gilmore MD Status:REG E R Location: ED HPI - General General Date of Admission: 10/26/24 HPI Narrative ZION MARSH, is a 79 M who presents due to umbilical hernia. Patient states hehas had this for 50 years. On Thursday he started noticed maybe a little bit bigger than usual also had not really beenable to have a bowel movement. Patient was able to tolerate diet during this time. Patient did takesome laxative last night was able to have a bowel movement today. However there is some color change at the umbilical hernia site which had him concerned so he came to the ER. ER physician was able to push some of the hernia back in but there is still some contents that were out. Unable to get a great story from patient if he has been able to push it back in or not sounds like he has been tried maybe for at least a year. Previous abdominal surgeries appendectomy and inguinal hernia surgery. [facility] Medical History Contact dermatitis due to poison francois Hypertension History of MRSA infection Wears glasses Anxiety Uses wheelchair Arthritis Kidney stones High cholesterol Gastric reflux Non-smoker CPAP (continuous positive airway pressure) dependence Sleep apnea History of pain when walking History of stress test History of echocardiogram Cardiology follow-up encounter BPH (benign prostatic hyperplasia) Dyslipidemia Nephrolithiasis Coronary artery disease Home Medications ?Medication ?Instructions ?Recorded ?Last Taken ?Type Venlafaxine Xr [Effexor Xr] 150 mg PO QHS DEPRESSION 0 04/04/15 04/14/15 History aspirin 81 mg tablet,delayed 81 mg PO QHS BLOOD THINNE R 04/04/15 04/14/15 History release atorvastatin 40 mg tablet 40 mg PO QHS CHOLESTEROL 04/1004/14/15 History finasteride 5 mg tablet 5 mg PO QHS URINATION 04/14/15 History sildenafil 100 mg tablet (Viagra) 100 mg PO DAILY PRN PRN Not 04/04/15 Unknown History Specified tamsulosin 0.4 mg capsule 0.4 mg PO QHS URINATION 04/1004/14/15 History Omeprazole [Prilosec] 40 mg PO DAILY GERD 01/23/17 12/20/21 History doxazosin 4 mg tablet,extended 4 mg PO DAILY HEART 12/20/21 History release 24 hr (Cardura XL) cholecalciferol (vitamin D3) 25 25 mcg PO DAILY SUPPLE MENT 12/17/21 Unknown History mcg (1,000 unit) capsule (Vitamin D3) gabapentin 100 mg capsule 200 mg PO QHS PAIN 12/17/21 Unknown History losartan 50 mg tablet 50 mg PO DAILY BP 12/17/21 0 12/20/21 History multivitamin 1 tab PO DAILY SUPPLEMENT Unknown History zinc 50 mg tablet 50 mg PO DAILY SUPPLEMENT Unknown History acetaminophen 500 mg tablet 1,000 mg (2 x 500 mg) PO Q 8 #100 12/21/21 Unknown Rx tabs doxycycline monohydrate 100 mg 100 mg PO BID 13 days # 26 caps 12/21/21 Unknown Rx capsule ferrous sulfate 325 mg (65 mg 325 mg PO 1200,1700 14 d ays #28 12/21/21 Unknown Rx iron) tablet (FeroSul) tabs folic acid 1 mg tablet 1 mg PO BIDCM 14 days #28 ta bs 12/21/21 Unknown Rx oxycodone 5 mg tablet 5 - 10 mg (1 - 2 x 5 mg) PO Q4H 12/21/21 Unknown Rx PRN PRN Pain Score 4-10 5 days #42 tabs rivaroxaban 10 mg tablet (Xarelto) 10 mg PO DAILY@0600 #13 tabs 12/21/21 Unknown Rx sennosides 8.6 mg-docusate sodium 2 tab PO BID #20 tab s 12/21/21 Unknown Rx 50 mg tablet (Stool Softener-Stimulant Laxative) prednisone 10 mg tablet 10 mg PO DIRECTED #30 tab s 01/28/23 Unknown Rx Allergy/AdvReac Type Severity Reaction Status Date / Time No Known Allergies Allergy Verified 10/26/24 11:34 Surgical History Hx of bilateral cataract extraction Hx of hernia repair Hx of appendectomy History of carpal tunnel release of both wrists Hx of repair of right rotator cuff Hx of repair of left rotator cuff Hx of bilateral hip replacements Social History (Updated 10/26/24 @ 14:[address] Bill Gary MD) household members: spouse Smoking Status: Never smoker Vital Signs Vital Signs Vital Signs: 10/26/24 11:31 10/26/24 14:27 Temperature 98.2 F Temperature Source Oral Pulse Rate 73 56 L Respiratory Rate 17 16 Blood Pressure 102/76 162/73 H Blood Pressure Mean 84 102 Pulse Ox 100 99 Oxygen Delivery Method Room Air Room Air Weight Weight: 230 lb 4.8 oz Body Mass Index (BMI) 33.0 Physical Exam Const alert, oriented x3 and no apparent distress HEENT normocephalic and head/scalp atraumatic Resp normal respiratory effort Cardio regular rate GI soft to palpation; Negative for non-distended GI Narrative: Umbilical hernia, incarcerated, tender while trying to reduce otherwise nontender, slight erythema likely due to previous pressure to attempt to reduce Palpation: Negative for guarding Extremity no clubbing, cyanosis or edema Skin no rashes or lesions noted Neuro CN's II-XII intact bilaterally Psych mental status grossly normal Results Lab / Micro Data 10/26/24 11:54 10/26/24 11:54 Labs: Laboratory Results - last 24 hr 10/26/24 11:54: WBC 5.0, RBC 4.32 L, Hgb 13.2, Hct 39.2 L, MCV 90.7, MCH 30.6, MCHC 33.7, RDW Std Deviation 41.7, RDW Coeff of Renato 12.8, Plt Count 146 L, MPV 9.7, Immature Gran % (Auto) 0.400, Neut %(Auto) 64.3, Lymph % (Auto) 21.6, [place] % (Auto) 8.3, Eos % (Auto) 4.4, Baso % (Auto) 1.0, Absolute Neuts (auto) 3.2, Absolute Lymphs (auto) 1.07, Nucleated RBC % 0, Sodium 138, Potassium 4.4, Chloride 104, Carbon Dioxide 25.2, Anion Gap 9, BUN 16, Creatinine 0.94, Estim Creat Clear Calc 75.87, Est GFR (MDRD) Non-Af 82, BUN/Creatinine Ratio 17.1, Glucose 121 H, Calcium 9.4, Total Bilirubin 0.43, AST 28, ALT 25, Alkaline Phosphatase 77, Total Protein 7.2, Albumin 4.4, Globulin 2.8, Albumin/Globulin Ratio 1.5, Lipase 25 10/26/24 14:19: Lactic Acid 1.7 10/26/24 14:43: Urine Color Yellow, Urine Clarity Clear, Urine pH 6.5, Ur Specific [place] 1.010, Urine Protein 30 H, Urine Glucose (UA) Normal, Urine Ketones Negative, Urine Occult Blood 25 H, UrineNitrite Negative, Urine Bilirubin Negative, Urine Urobilinogen Normal, Ur Leukocyte Esterase 25 H, Urine RBC 0-5 SEEN, Urine WBC 0-5 SEEN, Ur Squamous Epith Cells 0-5 SEEN, Urine Bacteria 0 SEEN, Urine Mucus 0 SEEN Imaging Radiology Impression Abdomen/Pelvis CT 10/26/24 14:50 IMPRESSION: Bilateral nonobstructive intrarenal calculi more prominent on the left side. Umbilical hernia as described with increased density within the hernia as well as the anterior peritoneal fat just deep to the umbilicus suggestive of possible incarceration. Clinical correlation recommended. Reading Location: [facility] Assessment & Plan Assessment/Plan (1) Incarcerated umbilical hernia: PLAN: Plan Discussed with patient and his plan for incarcerated medical hernia repair with possible mesh,possible bowel resection. Discussed procedure including but not limited to bleeding, infection, injury to another organ, recurrence and anesthesia patient had no other questions this time. Vickie Limon M.D. Pager: [phone] [facility] [address] [place] [address], [address] [place] [address] Office: [phone] 10/26/24 1625 Cosigner Signature (if applicable): CC: Dr. Vickie Limon MD; Dr. Abe Gilmore MD~ Signed [facility]04-02-2025 Radiology Diagnostic study note [facility] Services [address] [place] [id number] Abdomen/Pelvis W IV Cont ONLY MR#: [id number] Acct: [id number] Name: ZION MARSH Rep #: [id number] : 1945 M 79 From: Sebastian Doyle MD PCP: Dr. Abe Gilmore MD Status: REG E R Study:Abdomen/Pelvis W IV Cont ONLY Date of E xam: 10/26/24 Exam# [id number] Ordering Dr: Sarah Gary MD PROCEDURE: ABDOMEN/PELVIS W IV CONT ONLY 10/26/2024 REASON FOR EXAM: 1 REDUCIBLE UMBILICAL HERNIA AND 1 NONREDUCIBLE UM Prior umbilical hernia repair. TECHNIQUE: Abdomen and pelvis CT with intravenous contrast. Coronal and Sagittal reconstruction series were provided. PATIENT PREPARATION: Per protocol ORAL CONTRAST TYPE: None. CONTRAST: Isovue-300 VOLUME: 74mL One or more dose reduction techniques were used (e.g., Automated exposure control, adjustment of the mA and/or kV according to patient size, use of iterative reconstruction technique. RADIATION DOSE SUMMARY: CTDlvol: 14 mGy DLP: 984.6 mGycm COMPARISON: Comparison is made with prior study dated June 22, 2019. FINDINGS: Lung bases: Mild dependent atelectasis. Coronary artery calcification. Liver: Unremarkable tiny cyst in the anterior aspect of the left lobe of the liver. Gallbladder: Unremarkable Spleen: Normal size. Pancreas: Normal size without evidence of mass surrounding inflammation or ductal dilation. Adrenals: Kidneys: 1.1 cm nonobstructive calculus in the upper pole calyx of the left kidney. Nonobstructive punctate calculi in the mid lower pole of the left kidney as well as the right kidney. Mild degree of left hydronephrosis. Fullness of the right renal pelvis. Bladder: Distended urinary bladder. Bowel: Moderate-sized hiatal hernia. Small umbilical hernia containing fat. There is increased density within the umbilical hernia as well as the peritoneal fat just deep to the abdominal wall deep to theumbilicus. This mayrepresent trapping of the peritoneal fat. This may be the cause of patient's pain. Appendix: The appendix is not identified. There is no inflammatory process identified in the right lower quadrant to suggest appendicitis. Lymph nodes: Unremarkable. Vasculature: Mild diffuse atherosclerotic calcifications are noted. Peritoneum / Retroperitoneum: Bones: Status post bilateral total hip replacement causing beam hardening artifact and limited visualization of the pelvic structures. CT/Abdomen/Pelvis W IV Cont ONLY IMPRESSION: Bilateral nonobstructive intrarenal calculi more prominent on the left side. Umbilical hernia as described with increased density within the hernia as well as the anterior peritoneal fat just deep to the umbilicus suggestive of possible incarceration. Clinical correlation recommended. Reading Location: [facility]1 CC: Dr. Bill Gary MD; Dr. Abe Gilmore MD ~ Steel Sampler: Signed [facility]04-02-2025 Telephone encounter Note* Telephone Encounter - Lexis Jackson RN - 10/26/2024 10:28 AM EDT Protocol recommends go to the ER now and have someone drive you. Pt is going to go to [facility] ER and have his drive him. Care plan reviewed with patient. Patient voices understanding. Advised patient that if symptoms get worse to call 911. Reason for Disposition Hernia is painful or tender to touch Answer Assessment - Initial Assessment Questions 1. ONSET: Pt states he has had the hernia for quite a while, but over the last week it has started to protrude more and is painful. 2. APPEARANCE: Patient states it look looks red. 3. SIZE: Pt reports it's about 3/8th of an inch. 4. LOCATION: The hernia is located or coming out of his belly button. 5. PATTERN: The swelling has it been constant since it started about a week ago. 6. PAIN: - MILD (1-3): Doesn't interfere with normal activities, abdomen soft and not tender to touch. - MODERATE (4-7): Interferes with normal activities or awakens from sleep, abdomen tender to touch. - SEVERE (8-10): Excruciating pain, doubled over, unable to do any normal activities. Patient reports the pain a 6/10 constant ache. States he has to take Ex-Lax to have a BM now and ifhe doesn't take that his abdomen will ache. 7. DIAGNOSIS: Pt denies having been seen by a doctor (or MASTER ELECTRICIAN/PA) for this increasing protrusion of the hernia and pain. Pt reports the doctor knows he has a hernia. 8. OTHER SYMPTOMS: Pt denies fever or vomiting. Pt reports abdomen pain if he doesn't take his Ex-Lax and doesn't have a BM. Pt states before this he used to be able to have regular BMs, now he has to use Ex-Lax since the hernia has been getting bigger. Pt reports thin BMs. 9. : N/A Protocols used: [id number] [facility]04-02-2025 Miscellaneous Notes* Telephone Encounter - Lexis Jackson RN - 10/26/2024 10:28 AM EDT Protocol recommends go to the ER now and have someone drive you. Pt is going to go to [facility] ER and have his drive him. Care plan reviewed with patient. Patient voices understanding. Advised patient that if symptoms get worse to call 911. Reason for Disposition Hernia is painful or tender to touch Answer Assessment - Initial Assessment Questions 1. ONSET: Pt states he has had the hernia for quite a while, but over the last week it has started to protrude more and is painful. 2. APPEARANCE: Patient states it look looks red. 3. SIZE: Pt reports it's about 3/8th of an inch. 4. LOCATION: The hernia is located or coming out of his belly button. 5. PATTERN: The swelling has it been constant since it started about a week ago. 6. PAIN: - MILD (1-3): Doesn't interfere with normal activities, abdomen soft and not tender to touch. - MODERATE (4-7): Interferes with normal activities or awakens from sleep, abdomen tender to touch. - SEVERE (8-10): Excruciating pain, doubled over, unable to do any normal activities. Patient reports the pain a 6/10 constant ache. States he has to take Ex-Lax to have a BM now and ifhe doesn't take that his abdomen will ache. 7. DIAGNOSIS: Pt denies having been seen by a doctor (or MASTER ELECTRICIAN/PA) for this increasing protrusion of the hernia and pain. Pt reports the doctor knows he has a hernia. 8. OTHER SYMPTOMS: Pt denies fever or vomiting. Pt reports abdomen pain if he doesn't take his Ex-Lax and doesn't have a BM. Pt states before this he used to be able to have regular BMs, now he has to use Ex-Lax since the hernia has been getting bigger. Pt reports thin BMs. 9. : N/A Protocols used: [id number] documented in this encounterMer[facility] NoteHNO ID: [id number] Author: ABE GILMORE MD Service: ? Author Type: Physician Type: Progress Notes Filed: 10/21/2024 09:00 Note Text: Patient presents with: Follow Up: 6 months HPI: Patient presents today for office visit for follow up. Cpap:uses cpap Tolerating well. GERD:no gerd. Tolerating meds. HLD:no myalgias. Labs up to date. HYPERTENSION:feeling well with. No chest pain or shortness of breath. No edema. No dizziness. Psych:no side effects with meds. Tolerating meds. Seeing rheum. Uses tramadol with rheum. Uses gapapentin. Due to see local urology. Sees Dr Guidry next month. Has follow up with cardiology in December. Latest Ref Rng 10/13/2024 Hemoglobin A1C 4.3 - 5.6 % 5.7 (H) Estimated Average Glucose mg/dL 117 Legend: (H) HighAB : MEDICATIONS: Current Outpatient Medications Medication Sig omeprazole (PRILOSEC) 20 mg capsule TAKE 2 CAPSULES BY MOUTH DAILY BEFORE BREAKFAST. atorvastatin (LIPITOR) 40 mg tablet Take 1 tablet by mouth daily at bedtime. doxazosin (CARDURA) 4 mg tablet Take 1 tablet by mouth once daily. losartan (COZAAR) 50 mg tablet Take 1 tablet by mouth once daily. venlafaxine ER (EFFEXOR XR) 150 mg 24 hr capsule Take 1 capsule by mouth once daily. tamsulosin (FLOMAX) 0.4 mg Take 0.4 mg by mouth daily at bedtime. tramadol HCl (TRAMADOL ORAL) Take 50 mg by mouth four times daily. gabapentin (NEURONTIN) 100 mg capsule Take 100 mg by mouth daily at bedtime. finasteride (PROSCAR) 5 mg tablet Take 1 tablet by mouth once daily. aspirin, enteric coated (ASPIRIN, ENTERIC COATED) 81 mg EC tablet Take 1 tablet by mouth once daily. No current facility-administered medications for this visit. 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 Coronary artery disease Elevated BP 01/02/2011 Esophagitis, unspecified GENERAL OSTEOARTHROSIS 07/29/2007 GERD (gastroesophageal reflux disease) Heartburn gastritis Hypertension Impaired fasting glucose WI, old silent on EKG Mixed hyperlipidemia 07/21/2008 Personal history of colonic polyps Renal calculi Snoring Syncope 06/23/2019 Umbilical hernia 11/14/2009 PAST SURGICAL HISTORY Procedure Laterality Date APPENDECTOMY ARTHRP ACETBLR/PROX FEM PROSTC AGRFT/ALGRFT 07/02/09 right Hip replacement, total ARTHRP ACETBLR/PROX FEM PROSTC AGRFT/ALGRFT 08/27/09 left Hip replacement, total CARDIAC CATH 12/30/10 no stents COLONOSCOPY FLX DX W/COLLJ SPEC WHEN PFRMD 11-23-13 diverticulosis, repeat in 5 years COLONOSCOPY FLX DX W/COLLJ SPEC WHEN PFRMD 12/06/2018 Colonoscopy COLONOSCOPY W/BIOPSY SINGLE/MULTIPLE ?, 10/10/08 EGD TRANSORAL BIOPSY SINGLE/MULTIPLE 10/10/08 ESOPHAGOGASTRODUODENOSCOPY TRANSORAL DIAGNOSTIC 01/14/16 EGD INGUINAL HERNIA REPAIR HX right PAST SURGICAL HISTORY OF basket retrieval kidney stones RECONSTRUCTION ROTATOR CUFF AVULSION CHRONIC 04/2011 right-workers comp ROTATOR CUFF REPAIR 2011 left, [place] SALIVARY SURG UNLISTED PROC ? 1970s ? Mass removed from right cheek FAMILY HISTORY Problem Relation Age of Onset Heart Mother [place] Heart Brother Cancer Brother bone None Father unknown Heart Brother 45 [place] Social History Tobacco Use Smoking status: Never Smokeless tobacco: Never Substance Use Topics Alcohol use: No Drug use: No Reviewed current medications, allergies, past medical history, surgical history, family history and social history today. REVIEW OF SYSTEMS No gu issues. No gi issues. All other reviewed and negative other than HPI. HEALTH MAINTENANCE: Reviewed health maintenance issues today and recommended the following in detail. Advance Directive Discussion - is surrogate. VITALS: BP 118/64 Pulse (!) 58 Resp 14 Wt 105.7 kg (233 lb) SpO2 98% BMI 33.43 kg/m? Last 4 Encounter Wt Readings: Date: Wt: 10/21/2024 105.7 kg (233 lb) 09/02/2024 108.4 kg (238 lb 15.7 oz) 04/22/2024 104.6 kg (230 lb 9.6 oz) 02/03/2024 100.4 kg (221 lb 5.5 oz) PHYSICAL EXAMINATION: General appearance: Well appearing, alert, in no acute distress, well-hydrated, well nourished. Skin: Skin color, texture, turgor normal, no suspicious rashes or lesions Head: Normocephalic, no masses, lesions, tenderness or abnormalities Neck: Supple, no adenopathy; thyroid symmetric, normal size, no bruits Lungs: Lungs clear to auscultation. No wheezing, rhonchi, rales Heart: RRR without murmur, gallop, or rubs. No ectopy Abdomen: Normal abdominal exam, Abdomen soft, non-tender. Bowel sounds normal. No masses, organomegaly Extremities: No deformities, edema, skin discoloration, clubbing or cyanosis. Good capillary refill. Musculoskeletal: No joint swelling, deformity, or tenderness Peripheral pulses: Normal Neuro: Negative. ASSESSMENT/PLAN: 1. Essential hypertension - ICD9: 401 (more content not included)...[facility]03-28-2025 History of Present illness Narrative* Abe Gilmore MD - 10/21/2024 8:48 AM EDT Patient presents with: Follow Up: 6 months HPI: Patient presents today for office visit for follow up. Cpap:uses cpap Tolerating well. GERD:no gerd. Tolerating meds. HLD:no myalgias. Labs up to date. HYPERTENSION:feeling well with. No chest pain or shortness of breath. No edema. No dizziness. Psych:no side effects with meds. Tolerating meds. Seeing rheum. Uses tramadol with rheum. Uses gapapentin. Due to see local urology. Sees Dr Guidry next month. Has follow up with cardiology in December. Latest Ref Rng 10/13/2024 Hemoglobin A1C 4.3 - 5.6 % 5.7 (H) Estimated Average Glucose mg/dL 117 Legend: (H) HighAB : MEDICATIONS: Current Outpatient Medications Medication Sig omeprazole (PRILOSEC) 20 mg capsule TAKE 2 CAPSULES BY MOUTH DAILY BEFORE BREAKFAST. atorvastatin (LIPITOR) 40 mg tablet Take 1 tablet by mouth daily at bedtime. doxazosin (CARDURA) 4 mg tablet Take 1 tablet by mouth once daily. losartan (COZAAR) 50 mg tablet Take 1 tablet by mouth once daily. venlafaxine ER (EFFEXOR XR) 150 mg 24 hr capsule Take 1 capsule by mouth once daily. tamsulosin (FLOMAX) 0.4 mg Take 0.4 mg by mouth daily at bedtime. tramadol HCl (TRAMADOL ORAL) Take 50 mg by mouth four times daily. gabapentin (NEURONTIN) 100 mg capsule Take 100 mg by mouth daily at bedtime. finasteride (PROSCAR) 5 mg tablet Take 1 tablet by mouth once daily. aspirin, enteric coated (ASPIRIN, ENTERIC COATED) 81 mg EC tablet Take 1 tablet by mouth once daily. No current facility-administered medications for this visit. 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 Coronary artery disease Elevated BP 01/02/2011 Esophagitis, unspecified GENERAL OSTEOARTHROSIS 07/29/2007 GERD (gastroesophageal reflux disease) Heartburn gastritis Hypertension Impaired fasting glucose WI, old silent on EKG Mixed hyperlipidemia 07/21/2008 Personal history of colonic polyps Renal calculi Snoring Syncope 06/23/2019 Umbilical hernia 11/14/2009 PAST SURGICAL HISTORY Procedure Laterality Date APPENDECTOMY ARTHRP ACETBLR/PROX FEM PROSTC AGRFT/ALGRFT 07/02/09 right Hip replacement, total ARTHRP ACETBLR/PROX FEM PROSTC AGRFT/ALGRFT 08/27/09 left Hip replacement, total CARDIAC CATH 12/30/10 no stents COLONOSCOPY FLX DX W/COLLJ SPEC WHEN PFRMD 11-23-13 diverticulosis, repeat in 5 years COLONOSCOPY FLX DX W/COLLJ SPEC WHEN PFRMD 12/06/2018 Colonoscopy COLONOSCOPY W/BIOPSY SINGLE/MULTIPLE ?, 10/10/08 EGD TRANSORAL BIOPSY SINGLE/MULTIPLE 10/10/08 ESOPHAGOGASTRODUODENOSCOPY TRANSORAL DIAGNOSTIC 01/14/16 EGD INGUINAL HERNIA REPAIR HX right PAST SURGICAL HISTORY OF basket retrieval kidney stones RECONSTRUCTION ROTATOR CUFF AVULSION CHRONIC 04/2011 right-workers comp ROTATOR CUFF REPAIR 2011 left, [place] SALIVARY SURG UNLISTED PROC ? 1970s ? Mass removed from right cheek FAMILY HISTORY Problem Relation Age of Onset Heart Mother [place] Heart Brother Cancer Brother bone None Father unknown Heart Brother 45 [place] Social History Tobacco Use Smoking status: Never Smokeless tobacco: Never Substance Use Topics Alcohol use: No Drug use: No Reviewed current medications, allergies, past medical history, surgical history, family history andsocial history today. REVIEW OF SYSTEMS No gu issues. No gi issues. All other reviewed and negative other than HPI. HEALTH MAINTENANCE: Reviewed health maintenance issues today and recommended the following in detail. Advance Directive Discussion - is surrogate. VITALS: BP 118/64 Pulse (!) 58 Resp 14 Wt 105.7 kg (233 lb) SpO2 98% BMI 33.43 kg/m Last 4 Encounter Wt Readings: Date: Wt: 10/21/2024 105.7 kg (233 lb) 09/02/2024 108.4 kg (238 lb 15.7 oz) 04/22/2024 104.6 kg (230 lb 9.6 oz) 02/03/2024 100.4 kg (221 lb 5.5 oz) PHYSICAL EXAMINATION: General appearance: Well appearing, alert, in no acute distress, well-hydrated, well nourished. Skin: Skin color, texture, turgor normal, no suspicious rashes or lesions Head: Normocephalic, no masses, lesions, tenderness or abnormalities Neck: Supple, no adenopathy; thyroid symmetric, normal size, no bruits Lungs: Lungs clear to auscultation. No wheezing, rhonchi, rales Heart: RRR without murmur, gallop, or rubs. No ectopy Abdomen: Normal abdominal exam, Abdomen soft, non-tender. Bowel sounds normal. No masses, organomegaly Extremities: No deformities, edema, skin discoloration, clubbing or cyanosis. Good capillary refill. Musculoskeletal: No joint swelling, deformity, or tenderness Peripheral pulses: Normal Neuro: Negative. ASSESSMENT/PLAN: 1. Essential hypertension - ICD9: 401.9, ICD10: I10 (primary diagnosis) - .Continue current medications. Notify us if any difficulties are noted. Well controlled. - COMPLETE BLOOD COUNT AND DIFFERENTIAL - COMPREHENSIVE METABOLIC PANEL - LIPID PANEL, FASTING 2. Mixed hyperlipidemia - ICD9: 272.2, ICD10: E78.2 - stable. - COMPLETE BLOOD COUNT AND DIFFERENTIAL - COMPREHENSIVE METABOLIC PANEL - LIPID PANEL, FASTING 3. Coronary artery disease involving [place] heart without angina pectoris, unspecified vessel or lesion type - ICD9: 414.01, ICD10: I25.10 - per cardiology. 4. Enlarged thoracic aorta - ICD9: 447.8, ICD10: I77.89 -keep bp tight. Follow with cardiology. 5. JOSE (obstructive sleep apnea) - ICD9: 327.23, ICD10: G47.33 - continue tx. Benefiting from its use. 6. Gastroesophageal reflux disease without esophagitis - ICD9: 530.81, ICD10: K21.9 - continue med. Check lab.s 7. Medication monitoring encounter - ICD9: V58.83, ICD10: Z51.81 - due to ppi - VITAMIN B12 - MAGNESIUM 8. Hyperglycemia - ICD9: 790.29, ICD10: R73.9 - HEMOGLOBIN A1C Abe Gilmore RTO in six months and prn. documented in this encounterMer[facility] NoteHNO ID: [id number] Author: LM URBINA MD Service: ? Author Type: Physician Type: Progress Notes Filed: 09/02/2024 10:19 Note Text: Patient presents with: Urinary Problem: Lower back pain on right side, possible kidney stone x 1.5 weeks HPI: Back pain: Duration: couple weeks Character: cramping and sharp. Feels similar to prior kidney stones. Location: right lower back Radiation: No. Aggravating: Relieving: positioning to get abrupt cramps to relax Pain relievers: tramadol Associated: Hx of stones, takes daily flomax Pertinent negatives: Denies numbness, leg pain, fever, dysuria, hematuria, change in urinary frequency MEDICATIONS: omeprazole (PRILOSEC) 20 mg capsule TAKE 2 CAPSULES BY MOUTH DAILY BEFORE BREAKFAST. atorvastatin (LIPITOR) 40 mg tablet Take 1 tablet by mouth daily at bedtime. doxazosin (CARDURA) 4 mg tablet Take 1 tablet by mouth once daily. losartan (COZAAR) 50 mg tablet Take 1 tablet by mouth once daily. venlafaxine ER (EFFEXOR XR) 150 mg 24 hr capsule Take 1 capsule by mouth once daily. tamsulosin (FLOMAX) 0.4 mg Take 0.4 mg by mouth daily at bedtime. tramadol HCl (TRAMADOL ORAL) Take 50 mg by mouth four times daily. gabapentin (NEURONTIN) 100 mg capsule Take 100 mg by mouth daily at bedtime. finasteride (PROSCAR) 5 mg tablet Take 1 tablet by mouth once daily. aspirin, enteric coated (ASPIRIN, ENTERIC COATED) 81 mg EC tablet Take 1 tablet by mouth once daily. ALLERGIES: ALLERGIES No Known Allergies VITALS: BP 168/72 Pulse 70 Temp 36.2 ?C (97.1 ?F) Resp 21 Wt 108.4 kg (238 lb 15.7 oz) SpO2 98% BMI 34.29 kg/m? PHYSICAL EXAM: GEN: pleasant, alert, no acute distress HEENT: PERRL, EOMI, MMM HEART: regular rate, regular rhythm, no murmurs LUNGS: clear to auscultation, no wheezes or crackles, no increased WOB BACK: Normal curvature of spine. No midline tenderness. No paraspinal tenderness. Straight leg test negative. Normal lower extremity strength. ABD: Soft, non-distended, non-tender, no masses ASSESSMENT/PLAN: 1. Acute right-sided low back pain without sciatica - ICD9: 724.2, ICD10: M54.50 (primary diagnosis) 2. Recurrent kidney stones - ICD9: 592.0, ICD10: N20.0 - UA DIP, URINE (POC) - trace protein and trace LE. Suspect renal colic. Imaging recommended to check for obstructing stone. His PCP team is not available for an appointment this morning. He will contact his urologist to see if this can be worked up as an outpatient; ER evaluation if not. Lm Urbina, [facility]02-07-2025 History of Present illness Narrative* Lm Urbina MD - 09/02/2024 9:56 AM EST Patient presents with: Urinary Problem: Lower back pain on right side, possible kidney stone x 1.5 weeks HPI: Back pain: Duration: couple weeks Character: cramping and sharp. Feels similar to prior kidney stones. Location: right lower back Radiation: No. Aggravating: Relieving: positioning to get abrupt cramps to relax Pain relievers: tramadol Associated: Hx of stones, takes daily flomax Pertinent negatives: Denies numbness, leg pain, fever, dysuria, hematuria, change in urinary frequency MEDICATIONS: omeprazole (PRILOSEC) 20 mg capsule TAKE 2 CAPSULES BY MOUTH DAILY BEFORE BREAKFAST. atorvastatin (LIPITOR) 40 mg tablet Take 1 tablet by mouth daily at bedtime. doxazosin (CARDURA) 4 mg tablet Take 1 tablet by mouth once daily. losartan (COZAAR) 50 mg tablet Take 1 tablet by mouth once daily. venlafaxine ER (EFFEXOR XR) 150 mg 24 hr capsule Take 1 capsule by mouth once daily. tamsulosin (FLOMAX) 0.4 mg Take 0.4 mg by mouth daily at bedtime. tramadol HCl (TRAMADOL ORAL) Take 50 mg by mouth four times daily. gabapentin (NEURONTIN) 100 mg capsule Take 100 mg by mouth daily at bedtime. finasteride (PROSCAR) 5 mg tablet Take 1 tablet by mouth once daily. aspirin, enteric coated (ASPIRIN, ENTERIC COATED) 81 mg EC tablet Take 1 tablet by mouth once daily. ALLERGIES: ALLERGIES No Known Allergies VITALS: BP 168/72 Pulse 70 Temp 36.2 C (97.1 F) Resp 21 Wt 108.4 kg (238 lb 15.7 oz) SpO2 98% BMI 34.29 kg/m PHYSICAL EXAM: GEN: pleasant, alert, no acute distress HEENT: PERRL, EOMI, MMM HEART: regular rate, regular rhythm, no murmurs LUNGS: clear to auscultation, no wheezes or crackles, no increased WOB BACK: Normal curvature of spine. No midline tenderness. No paraspinal tenderness. Straight leg testnegative. Normal lower extremity strength. ABD: Soft, non-distended, non-tender, no masses ASSESSMENT/PLAN: 1. Acute right-sided low back pain without sciatica - ICD9: 724.2, ICD10: M54.50 (primary diagnosis) 2. Recurrent kidney stones - ICD9: 592.0, ICD10: N20.0 - UA DIP, URINE (POC) - trace protein and trace LE. Suspect renal colic. Imaging recommended to check for obstructing stone. His PCP team is not available for an appointment this morning. He will contact his urologist to see if this can be worked up as an outpatient; ER evaluation if not. Lm Urbina MD documented in this encounterMer[facility]12[facility] Telephone encounter Note * Telephone Encounter - Placido Reddy LPN - 07/11/2024 12:45 PM EST Rx for doxazosin was sent to [facility] 04/27/24. Pt not due for refill. [facility]12-16-2024 Miscellaneous Notes* Telephone Encounter - Placdio Reddy LPN - 07/11/2024 12:45 PM EST Rx for doxazosin was sent to [facility] 04/27/24. Pt not due for refill. * Telephone Encounter - Jasmyn Puckett - 07/11/2024 11:47 AM EST Prescription Refill Information The patient has been identified by name and date of : Yes Caregiver verified no other encounters exist for this prescription request: Yes Caregiver confirmed with patient/requestor that no other refills are due, in the near future, with this provider at this time: Yes The last office visit in the department: 05-07-24 Does the patient have a future office visit with this provider/department: Yes Requested Prescriptions Pending Prescriptions Disp Refills omeprazole (PRILOSEC) 20 mg capsule 180 capsule 3 Sig: TAKE 2 CAPSULES BY MOUTH DAILY BEFORE BREAKFAST. doxazosin (CARDURA) 4 mg tablet 90 tablet 3 Sig: Take 1 tablet by mouth once daily. Jasmyn Puckett July 11, 2024 11:47 AM documented in this encounterMercy [facility]12-[facility]-2024 Telephone encounter Note * Telephone Encounter - Jasmyn Puckett - 07/11/2024 11:47 AM EST Prescription Refill Information The patient has been identified by name and date of : Yes Caregiver verified no other encounters exist for this prescription request: Yes Caregiver confirmed with patient/requestor that no other refills are due, in the near future, with this provider at this time: Yes The last office visit in the department: 05-07-24 Does the patient have a future office visit with this provider/department: Yes Requested Prescriptions Pending Prescriptions Disp Refills omeprazole (PRILOSEC) 20 mg capsule 180 capsule 3 Sig: TAKE 2 CAPSULES BY MOUTH DAILY BEFORE BREAKFAST. doxazosin (CARDURA) 4 mg tablet 90 tablet 3 Sig: Take 1 tablet by mouth once daily. Jasmyn Puckett July 11, 2024 11:47 AM [facility]12-12-2024 Telephone encounter Note* Telephone Encounter - Jasmyn Puckett - 07/07/2024 11:42 AM EST Prescription Refill Information The patient has been identified by name and date of : Yes Caregiver verified no other encounters exist for this prescription request: Yes Caregiver confirmed with patient/requestor that no other refills are due, in the near future, with this provider at this time: Yes The last office visit in the department: 05-07-14 Does the patient have a future office visit with this provider/department: Yes Requested Prescriptions Pending Prescriptions Disp Refills atorvastatin (LIPITOR) 40 mg tablet 90 tablet 3 Sig: Take 1 tablet by mouth daily at bedtime. Jasmyn Puckett July 07, 2024 11:43 AM [facility]12-12-2024 Miscellaneous Notes* Telephone Encounter - Jasmyn Puckett - 07/07/2024 11:42 AM EST Prescription Refill Information The patient has been identified by name and date of : Yes Caregiver verified no other encounters exist for this prescription request: Yes Caregiver confirmed with patient/requestor that no other refills are due, in the near future, with this provider at this time: Yes The last office visit in the department: 05-07-14 Does the patient have a future office visit with this provider/department: Yes Requested Prescriptions Pending Prescriptions Disp Refills atorvastatin (LIPITOR) 40 mg tablet 90 tablet 3 Sig: Take 1 tablet by mouth daily at bedtime. Jasmyn Puckett July 07, 2024 11:43 AM [facility] Tele[facility] encounter Note * Telephone Encounter - Grecia Jung - 04/27/2024 11:29 AM EDT Prescription Refill Information The patient has been identified by name and date of : Yes Caregiver verified no other encounters exist for this prescription request: Yes Caregiver confirmed with patient/requestor that no other refills are due, in the near future, with this provider at this time: Yes The last office visit in the department: 04-22-24 Does the patient have a future office visit with this provider/department: Yes Requested Prescriptions Pending Prescriptions Disp Refills doxazosin (CARDURA) 4 mg tablet 90 tablet 3 Sig: Take 1 tablet by mouth once daily. losartan (COZAAR) 50 mg tablet 90 tablet 3 Sig: Take 1 tablet by mouth once daily. venlafaxine ER (EFFEXOR XR) 150 mg 24 hr capsule 90 capsule 3 Sig: Take 1 capsule by mouth once daily. Grecia Dietz April 27, 2024 11:[address] [facility]10-02-2024 Miscellaneous Notes* Telephone Encounter - Grecia Jung - 04/27/2024 11:29 AM EDT Prescription Refill Information The patient has been identified by name and date of : Yes Caregiver verified no other encounters exist for this prescription request: Yes Caregiver confirmed with patient/requestor that no other refills are due, in the near future, with this provider at this time: Yes The last office visit in the department: 04-22-24 Does the patient have a future office visit with this provider/department: Yes Requested Prescriptions Pending Prescriptions Disp Refills doxazosin (CARDURA) 4 mg tablet 90 tablet 3 Sig: Take 1 tablet by mouth once daily. losartan (COZAAR) 50 mg tablet 90 tablet 3 Sig: Take 1 tablet by mouth once daily. venlafaxine ER (EFFEXOR XR) 150 mg 24 hr capsule 90 capsule 3 Sig: Take 1 capsule by mouth once daily. Grecia Dietz April 27, 2024 11:30 AM documented in this encounter[facility] NoteHNO ID: [id number] Author: ABE GILMORE MD Service: ? Author Type: Physician Type: Progress Notes Filed: 04/22/2024 11:13 Note Text: Patient presents with: 6 Month Exam HPI: Patient presents today for office visit for follow up. No concerns today. HTN: Denies chest pain and shortness of breath Denies headaches Occasional dizziness Denies palpitations Had several occasions this summer where he was lightheaded and fell. Was not drinking enough. No vertigo. No syncope. Follows with cardiology. Denies edema. HLD: No myalgias JOSE: Using CPAP nightly Sleeping well through the night No snoring Feels rested when waking sometimes Does nap throughout the day Has daytime fatigue Benefiting from CPAP use and should continue therapy GERD: Symptoms controlled. Still seeing rheumatology and cardiology. Latest Ref Rng 04/12/2024 WBC 3.70 - 11.00 k/uL 5.07 RBC 4.20 - 6.00 m/uL 4.29 Hemoglobin 13.0 - 17.0 g/dL 13.3 Hematocrit 39.0 - 51.0 % 41.2 MCV 80.0 - 100.0 fL 96.0 MCH 26.0 - 34.0 pg 31.0 MCHC 30.5 - 36.0 g/dL 32.3 RDW-CV 11.5 - 15.0 % 12.5 Platelet Count 150 - 400 k/uL 160 MPV 9.0 - 12.7 fL 10.9 Neut% % 51.2 Abs Neut (ANC) 1.45 - 7.50 k/uL 2.60 Lymph% % 30.2 Abs Lymph 1.00 - 4.00 k/uL 1.53 [place]% % 8.1 Abs [place] <0.87 k/uL 0.41 Eosin% % 8.7 Abs Eosin <0.46 k/uL 0.44 Baso% % 1.4 Abs Baso <0.11 k/uL 0.07 Immature Gran % % 0.4 IMMATURE GRANS (ABS) <0.10 k/uL <0.03 NRBC /100 WBC 0.0 Absolute nRBC <0.01 k/uL <0.01 DTYPE Auto Protein, Total 6.3 - 8.0 g/dL 6.4 Albumin 3.9 - 4.9 g/dL 4.2 Calcium 8.5 - 10.2 mg/dL 9.1 Bilirubin, Total 0.2 - 1.3 mg/dL 0.5 Alkaline Phosphatase 38 - 113 U/L 61 AST 14 - 40 U/L 29 ALT 10 - 54 U/L 26 Glucose 74 - 99 mg/dL 103 (H) BUN 9 - 24 mg/dL 21 Creatinine 0.73 - 1.22 mg/dL 0.93 Sodium 136 - 144 mmol/L 139 Potassium 3.7 - 5.1 mmol/L 4.5 Chloride 98 - 107 mmol/L 103 CO2 22 - 30 mmol/L 26 Anion Gap 8 - 15 mmol/L 10 eGFR >=60 mL/min/1.73m? 84 Cholesterol, Total <200 mg/dL 141 Triglyceride <150 mg/dL 122 HDL Cholesterol >39 mg/dL 45 Non HDL Cholesterol <130 mg/dL 96 Fasting Time hrs 12 VLDL Cholesterol <30 mg/dL 24 TC:HDL Ratio <5.10 3.13 LDL Cholesterol <100 mg/dL 72 LDL:HDL Ratio <2.54 1.60 Hemoglobin A1C 4.3 - 5.6 % 5.7 (H) Estimated Average Glucose mg/dL 117 Legend: (H) High MEDICATIONS: Current Outpatient Medications Medication Sig atorvastatin (LIPITOR) 40 mg tablet Take 1 tablet by mouth daily at bedtime. doxazosin (CARDURA) 4 mg tablet Take 1 tablet by mouth once daily. losartan (COZAAR) 50 mg tablet Take 1 tablet by mouth once daily. venlafaxine ER (EFFEXOR XR) 150 mg 24 hr capsule Take 1 capsule by mouth once daily. omeprazole (PRILOSEC) 20 mg capsule TAKE 2 CAPSULES BY MOUTH DAILY BEFORE BREAKFAST. tamsulosin (FLOMAX) 0.4 mg Take 0.4 mg by mouth daily at bedtime. tramadol HCl (TRAMADOL ORAL) Take 50 mg by mouth four times daily. gabapentin (NEURONTIN) 100 mg capsule Take 100 mg by mouth daily at bedtime. finasteride (PROSCAR) 5 mg tablet Take 1 tablet by mouth once daily. aspirin, enteric coated (ASPIRIN, ENTERIC COATED) 81 mg EC tablet Take 1 tablet by mouth once daily. No current facility-administered medications for this visit. 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 Coronary artery disease Elevated BP 01/02/2011 Esophagitis, unspecified GENERAL OSTEOARTHROSIS 07/29/2007 GERD (gastroesophageal reflux disease) Heartburn gastritis Hypertension Impaired fasting glucose [place], old silent on EKG Mixed hyperlipidemia 07/21/2008 Personal history of colonic polyps Renal calculi Snoring Syncope 06/23/2019 Umbilical hernia 11/14/2009 PAST SURGICAL HISTORY Procedure Laterality Date APPENDECTOMY ARTHRP ACETBLR/PROX FEM PROSTC AGRFT/ALGRFT 07/02/09 right Hip replacement, total ARTHRP ACETBLR/PROX FEM PROSTC AGRFT/ALGRFT 08/27/09 left Hip replacement, total CARDIAC CATH 12/30/10 no stents COLONOSCOPY FLX DX W/COLLJ SPEC WHEN PFRMD 11-23-13 diverticulosis, repeat in 5 years COLONOSCOPY FLX DX W/COLLJ SPEC WHEN PFRMD 12/06/2018 Colonoscopy COLONOSCOPY W/BIOPSY SINGLE/MULTIPLE ?, 10/10/08 EGD TRANSORAL BIOPSY SINGLE/MULTIPLE 10/10/08 ESOPHAGOGASTRODUODENOSCOPY TRANSORAL DIAGNOSTIC 01/14/16 EGD INGUINAL HERNIA REPAIR HX right PAST SURGICAL HISTORY OF basket retrieval kidney stones RECONSTRUCTION ROTATOR CUFF AVULSION CHRONIC 04/2011 right-workers comp ROTATOR CUFF REPAIR 2011 left, [place] SALIVARY SURG UNLISTED PROC ? 1970s ? Mass removed from right cheek FAMILY HISTORY Problem Relation Age of Onset Heart Mother [place] Heart Brother Cancer Brother bone None Father unknown Heart Brother 45 [place] Social History Tobacco Use Smoking status: Never Smok (more content not included)...[facility]09-27-2024 History of Present illness Narrative* Abe Gilmore MD - 04/22/2024 10:31 AM EDT Patient presents with: 6 Month Exam HPI: Patient presents today for office visit for follow up. No concerns today. HTN: Denies chest pain and shortness of breath Denies headaches Occasional dizziness Denies palpitations Had several occasions this summer where he was lightheaded and fell. Was not drinking enough. No vertigo. No syncope. Follows with cardiology. Denies edema. HLD: No myalgias JOSE: Using CPAP nightly Sleeping well through the night No snoring Feels rested when waking sometimes Does nap throughout the day Has daytime fatigue Benefiting from CPAP use and should continue therapy GERD: Symptoms controlled. Still seeing rheumatology and cardiology. Latest Ref Rng 04/12/2024 WBC 3.70 - 11.00 k/uL 5.07 RBC 4.20 - 6.00 m/uL 4.29 Hemoglobin 13.0 - 17.0 g/dL 13.3 Hematocrit 39.0 - 51.0 % 41.2 MCV 80.0 - 100.0 fL 96.0 MCH 26.0 - 34.0 pg 31.0 MCHC 30.5 - 36.0 g/dL 32.3 RDW-CV 11.5 - 15.0 % 12.5 Platelet Count 150 - 400 k/uL 160 MPV 9.0 - 12.7 fL 10.9 Neut% % 51.2 Abs Neut (ANC) 1.45 - 7.50 k/uL 2.60 Lymph% % 30.2 Abs Lymph 1.00 - 4.00 k/uL 1.53 [place]% % 8.1 Abs [place] <0.87 k/uL 0.41 Eosin% % 8.7 Abs Eosin <0.46 k/uL 0.44 Baso% % 1.4 Abs Baso <0.11 k/uL 0.07 Immature Gran % % 0.4 IMMATURE GRANS (ABS) <0.10 k/uL <0.03 NRBC /100 WBC 0.0 Absolute nRBC <0.01 k/uL <0.01 DTYPE Auto Protein, Total 6.3 - 8.0 g/dL 6.4 Albumin 3.9 - 4.9 g/dL 4.2 Calcium 8.5 - 10.2 mg/dL 9.1 Bilirubin, Total 0.2 - 1.3 mg/dL 0.5 Alkaline Phosphatase 38 - 113 U/L 61 AST 14 - 40 U/L 29 ALT 10 - 54 U/L 26 Glucose 74 - 99 mg/dL 103 (H) BUN 9 - 24 mg/dL 21 Creatinine 0.73 - 1.22 mg/dL 0.93 Sodium 136 - 144 mmol/L 139 Potassium 3.7 - 5.1 mmol/L 4.5 Chloride 98 - 107 mmol/L 103 CO2 22 - 30 mmol/L 26 Anion Gap 8 - 15 mmol/L 10 eGFR >=60 mL/min/1.73m 84 Cholesterol, Total <200 mg/dL 141 Triglyceride <150 mg/dL 122 HDL Cholesterol >39 mg/dL 45 Non HDL Cholesterol <130 mg/dL 96 Fasting Time hrs 12 VLDL Cholesterol <30 mg/dL 24 TC:HDL Ratio <5.10 3.13 LDL Cholesterol <100 mg/dL 72 LDL:HDL Ratio <2.54 1.60 Hemoglobin A1C 4.3 - 5.6 % 5.7 (H) Estimated Average Glucose mg/dL 117 Legend: (H) High MEDICATIONS: Current Outpatient Medications Medication Sig atorvastatin (LIPITOR) 40 mg tablet Take 1 tablet by mouth daily at bedtime. doxazosin (CARDURA) 4 mg tablet Take 1 tablet by mouth once daily. losartan (COZAAR) 50 mg tablet Take 1 tablet by mouth once daily. venlafaxine ER (EFFEXOR XR) 150 mg 24 hr capsule Take 1 capsule by mouth once daily. omeprazole (PRILOSEC) 20 mg capsule TAKE 2 CAPSULES BY MOUTH DAILY BEFORE BREAKFAST. tamsulosin (FLOMAX) 0.4 mg Take 0.4 mg by mouth daily at bedtime. tramadol HCl (TRAMADOL ORAL) Take 50 mg by mouth four times daily. gabapentin (NEURONTIN) 100 mg capsule Take 100 mg by mouth daily at bedtime. finasteride (PROSCAR) 5 mg tablet Take 1 tablet by mouth once daily. aspirin, enteric coated (ASPIRIN, ENTERIC COATED) 81 mg EC tablet Take 1 tablet by mouth once daily. No current facility-administered medications for this visit. 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 Coronary artery disease Elevated BP 01/02/2011 Esophagitis, unspecified GENERAL OSTEOARTHROSIS 07/29/2007 GERD (gastroesophageal reflux disease) Heartburn gastritis Hypertension Impaired fasting glucose [place], old silent on EKG Mixed hyperlipidemia 07/21/2008 Personal history of colonic polyps Renal calculi Snoring Syncope 06/23/2019 Umbilical hernia 11/14/2009 PAST SURGICAL HISTORY Procedure Laterality Date APPENDECTOMY ARTHRP ACETBLR/PROX FEM PROSTC AGRFT/ALGRFT 07/02/09 right Hip replacement, total ARTHRP ACETBLR/PROX FEM PROSTC AGRFT/ALGRFT 08/27/09 left Hip replacement, total CARDIAC CATH 12/30/10 no stents COLONOSCOPY FLX DX W/COLLJ SPEC WHEN PFRMD 11-23-13 diverticulosis, repeat in 5 years COLONOSCOPY FLX DX W/COLLJ SPEC WHEN PFRMD 12/06/2018 Colonoscopy COLONOSCOPY W/BIOPSY SINGLE/MULTIPLE ?, 10/10/08 EGD TRANSORAL BIOPSY SINGLE/MULTIPLE 10/10/08 ESOPHAGOGASTRODUODENOSCOPY TRANSORAL DIAGNOSTIC 01/14/16 EGD INGUINAL HERNIA REPAIR HX right PAST SURGICAL HISTORY OF basket retrieval kidney stones RECONSTRUCTION ROTATOR CUFF AVULSION CHRONIC 04/2011 right-workers comp ROTATOR CUFF REPAIR 2011 left, [place] SALIVARY SURG UNLISTED PROC ? 1970s ? Mass removed from right cheek FAMILY HISTORY Problem Relation Age of Onset Heart Mother [place] Heart Brother Cancer Brother bone None Father unknown Heart Brother 45 [place] Social History Tobacco Use Smoking status: Never Smokeless tobacco: Never Substance Use Topics Alcohol use: No Drug use: No Reviewed current medications, allergies, past medical history, surgical history, family history andsocial history today. REVIEW OF SYSTEMS All other reviewed and negative other than HPI. HEALTH MAINTENANCE: Reviewed health maintenance issues today and recommended the following in detail. Depression Screening Never done Anxiety Screening Never done Covid-19 Vaccine( season) due on 03/27/2024 Influenza Vaccine(1) due on 03/27/2024 VITALS: BP 130/64 Pulse (!) 59 Ht 177.8 cm (5' 10) Wt 104.6 kg (230 lb 9.6 oz) BMI 33.09 kg/m Last 4 Encounter Wt Readings: Date: Wt: 02/03/2024 100.4 kg (221 lb 5.5 oz) 12/31/2023 101 kg (222 lb 10.6 oz) 10/23/2023 103.4 kg (228 lb) 06/24/2023 101.2 kg (223 lb 1.7 oz) PHYSICAL EXAMINATION: General appearance: Well appearing, alert, in no acute distress, well-hydrated, well nourished. Skin: Skin color, texture, turgor normal, no suspicious rashes or lesions Head: Normocephalic, no masses, lesions, tenderness or abnormalities Lungs: Lungs clear to auscultation. No wheezing, rhonchi, rales Heart: RRR without murmur, gallop, or rubs. No ectopy Abdomen: Normal abdominal exam, Abdomen soft, non-tender. Bowel sounds normal. No masses, organomegaly ASSESSMENT/PLAN: 1. Essential hypertension - ICD9: 401.9, ICD10: I10 (primary diagnosis) - Controlled - Continue current medications 2. Mixed hyperlipidemia - ICD9: 272.2, ICD10: E78.2 - Controlled - Continue current medications 3. Coronary artery disease involving [place] heart without angina pectoris, unspecified vessel or lesion type - ICD9: 414.01, ICD10: I25.10 - stable. 4. Enlarged thoracic aorta (HCC) - ICD9: 447.8, ICD10: I77.89 - per cardiology 5. JOSE (obstructive sleep apnea) - ICD9: 327.23, ICD10: G47.33 - benefits from use 6. Gastroesophageal reflux disease without esophagitis - ICD9: 530.81, ICD10: K21.9 - stable. 7. Dysmetabolic syndrome - ICD9: 277.7, ICD10: E88.810 - doing well. 8. BPH with urinary obstruction - ICD9: 600.01, 599.69, ICD10: N40.1, N13.8 - doing well. 9. Adjustment disorder with depressed mood - ICD9: 309.0, ICD10: F43.21 - doing well. 10. Primary osteoarthritis involving multiple joints - ICD9: 715.98, ICD10: M15.0 - stable. 11. Obesity, Class I, BMI 30-34.9 - ICD9: 278.00, ICD10: E66.9 -discussed diet. Abe Gilmore MD documented in this encounter[facility] Telephone encounter Note * Telephone Encounter - Cassie Baez MA - 04/06/2024 2:05 PM EDT Spoke with patient. Informed he has fasting labs ordered. He did give verbal permission to be able to speak with his Martha regarding his medication information. Chart updated. Cassie aBez MA [facility]09-11-2024 Miscellaneous Notes* Telephone Encounter - Cassie Baez MA - 04/06/2024 2:05 PM EDT Spoke with patient. Informed he has fasting labs ordered. He did give verbal permission to be able to speak with his Martha regarding his medication information. Chart updated. Cassie Baez MA * Telephone Encounter - Lexis Jackson RN - 04/05/2024 11:20 AM EDT Pts called in asking if Pt had lab orders in. I let her know I didn't have it written down that her gave us permission to give her information from his chart. Called patient and no answer. Patients voicemail was full. Will need to call back later. Need to check to see if we are allowedto give his medical information about him, and let him know he has fasting lab work to be donebefore his 04/25/24 appointment. Lexis Jackson RN documented in this encounterMer[facility] Telephone encounter Note * Telephone Encounter - Lexis Jackson RN - 04/05/2024 11:20 AM EDT Pts called in asking if Pt had lab orders in. I let her know I didn't have it written down that her gave us permission to give her information from his chart. Called patient and no answer. Patients voicemail was full. Will need to call back later. Need to check to see if we are allowedto give his medical information about him, and let him know he has fasting lab work to be donebefore his 04/25/24 appointment. Lexis Jackson RN 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 He has washed it out in the shower and wrapped it. MEDICATIONS: atorvastatin (LIPITOR) 40 mg tablet Take 1 tablet by mouth daily at bedtime. doxazosin (CARDURA) 4 mg tablet Take 1 tablet by mouth once daily. losartan (COZAAR) 50 mg tablet Take 1 tablet by mouth once daily. venlafaxine ER (EFFEXOR XR) 150 mg 24 hr capsule Take 1 capsule by mouth once daily. omeprazole (PRILOSEC) 20 mg capsule TAKE 2 CAPSULES BY MOUTH DAILY BEFORE BREAKFAST. tamsulosin (FLOMAX) 0.4 mg Take 0.4 mg by mouth daily at bedtime. tramadol HCl (TRAMADOL ORAL) Take 50 mg by mouth four times daily. gabapentin (NEURONTIN) 100 mg capsule Take 100 mg by mouth daily at bedtime. finasteride (PROSCAR) 5 mg tablet Take 1 tablet by mouth once daily. aspirin, enteric coated (ASPIRIN, ENTERIC COATED) 81 mg EC tablet Take 1 tablet by mouth once daily. ALLERGIES: ALLERGIES No Known Allergies VITALS: BP 110/64 Pulse 85 Temp 36 C (96.8 F) Resp 21 Wt 100.4 kg (221 lb 5.5 oz) SpO2 98% BMI 31.76 kg/m PE: Pleasant, in no acute distress. Knee: right. 6cm full thickness oblique laceration medial knee. Procedure: Anesthesia: none. Site cleansed with hibiclens and water on gauze. Wound explored and does not extend into the joint capsule or muscle layer. Kelle 4 zip closure device used to approximate the wound edges. Hemostasis achieved with pressure bandage. Wound dressed with non-adherent pad and COBAN. ASSESSMENT/PLAN: 1. Laceration of right knee, initial encounter - ICD9: 891.0, ICD10: S81.011A Keep wound covered and dry for 48 hours. The dressing may be changed as needed- avoid using gauze orointment/cream. After 48 hours, the wound may be exposed to limited water but not submerged. Apply continuous pressure for 10 minutes if bleeding occurs. Seek re-evaluation for sign of infection such as spreading redness, warmth, pus- like discharge, increasing pain, or fever. Patient would like tetanus vaccine updated here. Declines printed prescription to take to the pharmacy for Medicare insurance coverage. Return for closure device removal in 10-14 days. Lm Urbina MD documented in this encounterMer[facility]24 NoteHNO ID: [id number] Author: LM URBINA MD Service: ? 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 He has washed it out in the shower and wrapped it. MEDICATIONS: atorvastatin (LIPITOR) 40 mg tablet Take 1 tablet by mouth daily at bedtime. doxazosin (CARDURA) 4 mg tablet Take 1 tablet by mouth once daily. losartan (COZAAR) 50 mg tablet Take 1 tablet by mouth once daily. venlafaxine ER (EFFEXOR XR) 150 mg 24 hr capsule Take 1 capsule by mouth once daily. omeprazole (PRILOSEC) 20 mg capsule TAKE 2 CAPSULES BY MOUTH DAILY BEFORE BREAKFAST. tamsulosin (FLOMAX) 0.4 mg Take 0.4 mg by mouth daily at bedtime. tramadol HCl (TRAMADOL ORAL) Take 50 mg by mouth four times daily. gabapentin (NEURONTIN) 100 mg capsule Take 100 mg by mouth daily at bedtime. finasteride (PROSCAR) 5 mg tablet Take 1 tablet by mouth once daily. aspirin, enteric coated (ASPIRIN, ENTERIC COATED) 81 mg EC tablet Take 1 tablet by mouth once daily. ALLERGIES: ALLERGIES No Known Allergies VITALS: BP 110/64 Pulse 85 Temp 36 ?C (96.8 ?F) Resp 21 Wt 100.4 kg (221 lb 5.5 oz) SpO2 98% BMI 31.76 kg/m? PE: Pleasant, in no acute distress. Knee: right. 6cm full thickness oblique laceration medial knee. Procedure: Anesthesia: none. Site cleansed with hibiclens and water on gauze. Wound explored and does not extend into the joint capsule or muscle layer. Avidia zip closure device used to approximate the wound edges. Hemostasis achieved with pressure bandage. Wound dressed with non-adherent pad and COBAN. ASSESSMENT/PLAN: 1. Laceration of right knee, initial encounter - ICD9: 891.0, ICD10: S81.011A Keep wound covered and dry for 48 hours. The dressing may be changed as needed-avoid using gauze or ointment/cream. After 48 hours, the wound may be exposed to limited water but not submerged. Apply continuous pressure for 10 minutes if bleeding occurs. Seek re-evaluation for sign of infection such as spreading redness, warmth, pus-like discharge, increasing pain, or fever. Patient would like tetanus vaccine updated here. Declines printed prescription to take to the pharmacy for Medicare insurance coverage. Return for closure device removal in 10-14 days. Lm Urbina, [facility]06-06-2024 NoteHNO ID: [id number] Author: GERSON YOUNG, DO Service: ? Author Type: Physician Type: Progress Notes Filed: 12/31/2023 11:34 Note Text: [facility] V[facility] [address] Department of Cardiovascular Medicine SECTION OF REGIONAL CARDIOLOGY ARON: 06/05/2022 HPI: Zion Marsh is a 78 year old male with history of hypertension, hyperlipidemia, moderate CAD, obstructive sleep apnea on sleep apnea and diabetes mellitus who was lost to follow up and is here today for follow up of dizziness/lightheadedness, and syncope/near syncope. The patient is involved in sporadic irregular exercise Patient is currently asymptomatic. Patient denies SOB, chest pain, dizziness, lightheadedness, palpitations, lower extremity edema, PND, orthopnea, presyncope, syncope or claudication symptoms. Prior Hx: 11/12/20 He was last seen for preoperative cardiovascular examination pending carpal tunnel surgery and this went well. He had an episode of syncope while on a ladder putting up lights 06/23/19. It was around noon and he was reaching up and feels he passed out. He fell and had some head trauma then went to ED. He had an unremarkable echo other than mild aortic root dilation at 4 cm. He has not had any issues since then. He had a LHC at [facility] due to abnormal stress echo for ischemia per Dr. Peña. The LHC showed moderate CAD. 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 Coronary artery disease Elevated BP 01/02/2011 Esophagitis, unspecified GENERAL OSTEOARTHROSIS 07/29/2007 GERD (gastroesophageal reflux disease) Heartburn gastritis Hypertension Impaired fasting glucose WI, old silent on EKG Mixed hyperlipidemia 07/21/2008 Personal history of colonic polyps Renal calculi Snoring Syncope 06/23/2019 Umbilical hernia 11/14/2009 PAST SURGICAL HISTORY Procedure Laterality Date APPENDECTOMY ARTHRP ACETBLR/PROX FEM PROSTC AGRFT/ALGRFT 07/02/09 right Hip replacement, total ARTHRP ACETBLR/PROX FEM PROSTC AGRFT/ALGRFT 08/27/09 left Hip replacement, total CARDIAC CATH 12/30/10 no stents COLONOSCOPY FLX DX W/COLLJ SPEC WHEN PFRMD 11-23-13 diverticulosis, repeat in 5 years COLONOSCOPY FLX DX W/COLLJ SPEC WHEN PFRMD 12/06/2018 Colonoscopy COLONOSCOPY W/BIOPSY SINGLE/MULTIPLE ?, 10/10/08 EGD TRANSORAL BIOPSY SINGLE/MULTIPLE 10/10/08 ESOPHAGOGASTRODUODENOSCOPY TRANSORAL DIAGNOSTIC 01/14/16 EGD INGUINAL HERNIA REPAIR HX right PAST SURGICAL HISTORY OF s basket retrieval kidney stones RECONSTRUCTION ROTATOR CUFF AVULSION CHRONIC 04/2011 right-workers comp ROTATOR CUFF REPAIR 2011 left, [place] SALIVARY SURG UNLISTED PROC ? 1970s ? Mass removed from right cheek FAMILY HISTORY Problem Relation Age of Onset Heart Mother [place] Heart Brother Cancer Brother bone None Father unknown Heart Brother 45 [place] SOCIAL HISTORY Social History Tobacco Use Smoking status: Never Smokeless tobacco: Never Substance Use Topics Alcohol use: No Drug use: No ALLERGIES: Patient has no known allergies. CURRENT MEDICATIONS: Current Outpatient Medications Medication Sig atorvastatin (LIPITOR) 40 mg tablet Take 1 tablet by mouth daily at bedtime. doxazosin (CARDURA) 4 mg tablet Take 1 tablet by mouth once daily. losartan (COZAAR) 50 mg tablet Take 1 tablet by mouth once daily. venlafaxine ER (EFFEXOR XR) 150 mg 24 hr capsule Take 1 capsule by mouth once daily. omeprazole (PRILOSEC) 20 mg capsule TAKE 2 CAPSULES BY MOUTH DAILY BEFORE BREAKFAST. tamsulosin (FLOMAX) 0.4 mg Take 0.4 mg by mouth daily at bedtime. tramadol HCl (TRAMADOL ORAL) Take 50 mg by mouth four times daily. gabapentin (NEURONTIN) 100 mg capsule Take 100 mg by mouth daily at bedtime. finasteride (PROSCAR) 5 mg tablet Take 1 tablet by mouth once daily. aspirin, enteric coated (ASPIRIN, ENTERIC COATED) 81 mg EC tablet Take 1 tablet by mouth once daily. No current facility-administered medications for this visit. ROS: Card: See present history. Pulm: Negative for cough, hemoptysis, wheezing, COPD, dyspnea or shortness of breath Gastro: No nausea, vomiting, or diarrhea GenUr: No history of dysuria, frequency or incontinence Endo: Negative for cold or heat intolerance, polyuria or polydipsia. Neuro: no focal weakness, focal sensory loss, headache, visual changes, seizure activity, ataxia, speech/language loss. Musculoskeletal: Negative for joint or muscle pain, back pain, or swelling. Infect: no fevers, chills, rigors or night sweats. Skin: Negative for lesions, rash, and itching. Heme: Negative for prolonged bleeding, bruising easily or swollen nodes. The remainder of the review of systems is negative. PHYSICAL EXAMINATION: GENERAL: alert cooperative, pleasant oriented x 3 (self, time and place) in no acute distress overweight BP (!) (more content not included)...[facility]06-06-2024 History of Present illness Narrative* Gerson Young, DO - 12/31/2023 11:12 AM EDT Images from the original note were not included. [facility] Heart and Vascular [address] Department of Cardiovascular Medicine SECTION OF REGIONAL CARDIOLOGY ARON: 06/05/2022 HPI: Zion Marsh is a 78 year old male with history of hypertension, hyperlipidemia, moderate CAD, obstructive sleep apnea on sleep apnea and diabetes mellitus who was lost to follow up and is here today for follow up of dizziness/lightheadedness, and syncope/near syncope. The patient is involved in sporadic irregular exercise Patient is currently asymptomatic. Patient denies SOB, chest pain, dizziness, lightheadedness, palpitations, lower extremity edema, PND, orthopnea, presyncope, syncope or claudication symptoms. Prior Hx: 11/12/20 He was last seen for preoperative cardiovascular examination pending carpal tunnel surgery and thiswent well. He had an episode of syncope while on a ladder putting up lights 06/23/19. It was around noon and he was reaching up and feels he passed out. He fell and had some head trauma then went to ED. He had an unremarkable echo other than mild aortic root dilation at 4 cm. He has not had any issues since then. He had a LHC at [facility] due to abnormal stress echo for ischemia per Dr. Peña. The LHC showed moderate CAD. 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 Coronary artery disease Elevated BP 01/02/2011 Esophagitis, unspecified GENERAL OSTEOARTHROSIS 07/29/2007 GERD (gastroesophageal reflux disease) Heartburn gastritis Hypertension Impaired fasting glucose WI, old silent on EKG Mixed hyperlipidemia 07/21/2008 Personal history of colonic polyps Renal calculi Snoring Syncope 06/23/2019 Umbilical hernia 11/14/2009 PAST SURGICAL HISTORY Procedure Laterality Date APPENDECTOMY ARTHRP ACETBLR/PROX FEM PROSTC AGRFT/ALGRFT 07/02/09 right Hip replacement, total ARTHRP ACETBLR/PROX FEM PROSTC AGRFT/ALGRFT 08/27/09 left Hip replacement, total CARDIAC CATH 12/30/10 no stents COLONOSCOPY FLX DX W/COLLJ SPEC WHEN PFRMD 11-23-13 diverticulosis, repeat in 5 years COLONOSCOPY FLX DX W/COLLJ SPEC WHEN PFRMD 12/06/2018 Colonoscopy COLONOSCOPY W/BIOPSY SINGLE/MULTIPLE ?, 10/10/08 EGD TRANSORAL BIOPSY SINGLE/MULTIPLE 10/10/08 ESOPHAGOGASTRODUODENOSCOPY TRANSORAL DIAGNOSTIC 01/14/16 EGD INGUINAL HERNIA REPAIR HX right PAST SURGICAL HISTORY OF basket retrieval kidney stones RECONSTRUCTION ROTATOR CUFF AVULSION CHRONIC 04/2011 right-workers comp ROTATOR CUFF REPAIR 2011 left, [place] SALIVARY SURG UNLISTED PROC ? 1970s ? Mass removed from right cheek FAMILY HISTORY Problem Relation Age of Onset Heart Mother [place] Heart Brother Cancer Brother bone None Father unknown Heart Brother 45 [place] SOCIAL HISTORY Social History Tobacco Use Smoking status: Never Smokeless tobacco: Never Substance Use Topics Alcohol use: No Drug use: No ALLERGIES: Patient has no known allergies. CURRENT MEDICATIONS: Current Outpatient Medications Medication Sig atorvastatin (LIPITOR) 40 mg tablet Take 1 tablet by mouth daily at bedtime. doxazosin (CARDURA) 4 mg tablet Take 1 tablet by mouth once daily. losartan (COZAAR) 50 mg tablet Take 1 tablet by mouth once daily. venlafaxine ER (EFFEXOR XR) 150 mg 24 hr capsule Take 1 capsule by mouth once daily. omeprazole (PRILOSEC) 20 mg capsule TAKE 2 CAPSULES BY MOUTH DAILY BEFORE BREAKFAST. tamsulosin (FLOMAX) 0.4 mg Take 0.4 mg by mouth daily at bedtime. tramadol HCl (TRAMADOL ORAL) Take 50 mg by mouth four times daily. gabapentin (NEURONTIN) 100 mg capsule Take 100 mg by mouth daily at bedtime. finasteride (PROSCAR) 5 mg tablet Take 1 tablet by mouth once daily. aspirin, enteric coated (ASPIRIN, ENTERIC COATED) 81 mg EC tablet Take 1 tablet by mouth once daily. No current facility-administered medications for this visit. ROS: Card: See present history. Pulm: Negative for cough, hemoptysis, wheezing, COPD, dyspnea or shortness of breath Gastro: No nausea, vomiting, or diarrhea GenUr: No history of dysuria, frequency or incontinence Endo: Negative for cold or heat intolerance, polyuria or polydipsia. Neuro: no focal weakness, focal sensory loss, headache, visual changes, seizure activity, ataxia, speech/language loss. Musculoskeletal: Negative for joint or muscle pain, back pain, or swelling. Infect: no fevers, chills, rigors or night sweats. Skin: Negative for lesions, rash, and itching. Heme: Negative for prolonged bleeding, bruising easily or swollen nodes. The remainder of the review of systems is negative. PHYSICAL EXAMINATION: GENERAL: alert cooperative, pleasant oriented x 3 (self, time and place) in no acute distress overweight BP (!) 108/48 Pulse (!) 55 Ht 177.8 cm (5' 10) Wt 101 kg (222 lb 10.6 oz) SpO2 97% BMI 31.95 kg/m Last 3 Encounter BP Readings: Date: BP: 09/16/2019 128/60 07/12/2019 136/64 06/23/2019 125/54 Last 3 Encounter Pulse Readings: Date: Pulse: 09/16/2019 69 07/12/2019 64 06/23/2019 59 Last 3 Encounter Wt Readings: Date: Wt: 09/16/2019 104.6 kg (230 lb 11.2 oz) 07/12/2019 104.2 kg (229 lb 12.8 oz) 06/23/2019 101 kg (222 lb 10.6 oz) SKIN: warm, dry, no rash. NECK: supple, no palpable masses, no JVD, carotids well felt, no bruits. CARDIAC: [place] palpable in the 5th intercostal space mid clavicular line, normal S1 and S2, no murmurs, gallops, or rubs. CHEST: Normal respiratory efforts, lungs clear to auscultation bilaterally. ABDOMEN: Soft, no tenderness, rigidity, or masses. No palpable liver or spleen. Normal bowel sounds, no bruits. NEURO: intact cranial nerves II through XII, no motor or sensory deficits in all 4 extremities. EXTREMITIES: No cyanosis, clubbing, or edema. Peripheral pulses well felt. CARDIAC (& OTHER IMPORTANT) TESTING: Echo 10/27/2023: CONCLUSIONS: - Exam indication: Routine surveillance of mild valvular regurgitation (>3yrs) - The left ventricle is normal in size. Left ventricular systolic function is normal. EF = 63 5% (2D biplane). Indeterminate left ventricular diastolic dysfunction. - The right ventricle is normal in size. Right ventricular systolic function is normal. - The visualized aorta is borderline dilated with a maximal dimension of 4.0 cm. - Mild (1+) aortic valve regurgitation. - Exam was compared with the prior echocardiographic exam performed on 11/26/2021, no significant change. Echo 11/26/21 CONCLUSIONS: - Exam indication: Dilated Ascending Aorta - The left ventricle is normal in size. There is mild concentric left ventricular hypertrophy. Left ventricular systolic function is normal. EF = 61 5% (2D biplane) Grade I left ventricular diastolic dysfunction. GLS= -18.6% Normal. - The right ventricle is normal in size. Right ventricular systolic function is normal. - The left atrial cavity is moderately dilated. - The visualized aorta is borderline dilated with a maximal dimension of 4.0 cm. - Mild aortic regurgitation. - Exam was compared with the prior echocardiographic exam performed on 11/27/2020. Prior Ascending Aorta was 3.9cm. Echo 11/27/20 CONCLUSIONS: - Exam indication: CAD - The left ventricle is normal in size. There is mild left ventricular hypertrophy. Left ventricular systolic function is normal. EF = 64 5% (2D 4-ch.) Grade I left ventricular diastolic dysfunction. GLS= -18.5% Normal. - The right ventricle is normal in size. Right ventricular systolic function is normal. - The left atrial cavity is mildly dilated. - The visualized aorta is borderline dilated with a maximal dimension of 3.9 cm. - Mild (1+) AI. - Exam was compared with the prior CC echocardiographic exam performed on 06/29/2019. There is no significant change. Echo 06/29/19: CONCLUSIONS: - Exam indication: Syncope - The left ventricle is normal in size. Left ventricular systolic function is normal. EF = 59 5% (2D biplane) Grade I left ventricular diastolic dysfunction. - The right ventricle is normal in size. Right ventricular systolic function is normal. - There are no significant valvular abnormalities. - The visualized aorta is borderline dilated with a maximal dimension of 4.0 cm. - Exam was compared with the prior CC echocardiographic exam performed on 07/23/2015 (Stress). No significant change noted. [facility] 2011: Summar 65 yo M here for left heart catheterization after a abnormal stress echocardiogram. Today's coronary angiography reveals: - Left Main Trunk (LM): large caliber vessel, angiographically normal. Bifurcates into the Left anterior Descending (LAD) and circumflex (LCx) arteries. - LAD: large caliber vessel. Minimal luminal irregularities. The first diagonal has a 50% prox lesion. The LAD extends and wraps around the apex. - LCx: large caliber vessel. Mild luminal diseasel. - Ramus Intermedius- 40% proximal liesion - Right Coronary Artery (RCA): large caliber vessel, dominant. 30% proximal lesion. The right PDA has a 50% lesion proximal and has mild diffuse disease No gradient across aortic valve upon catheter pullback LV gram: normal EF. No wall motion abnormalities. No mitral regurgitation. Recommendations: Medical Management Aggressive risk factor modification, including treatment of hyperlipidemia Recommendations Disposition: cardiac medical treatment. Patient: [id number] ZION MARSH Lab Staff: ROMAN DESHPANDE DO LABS: Cholesterol, Total (mg/dL) Date Value 04/14/2023 133 09/17/2020 139 HDL Cholesterol (mg/dL) Date Value 04/14/2023 46 09/17/2020 44 LDL Cholesterol (mg/dL) Date Value 04/14/2023 71 09/17/2020 70 Triglyceride (mg/dL) Date Value 04/14/2023 78 09/17/2020 123 ASSESSMENT/PLAN: Coronary artery disease involving [place] heart without angina pectoris, unspecified vessel or lesion type Moderate disease 2010 [facility] Possible false positive stress echo prior to cath Syncope, unspecified syncope type He was working in the hot weather and not drinking then passed out 2 weeks ago Staying off ladders He forgets to drink fluids Enlarged thoracic aorta 4.0 cm per last echocardiogram 10/2023 Echo was 3.9 cm 11/27/2020 Recheck echo annually He should continue aggressive risk factor modifications with blood pressure and cholesterol both ator near target at home. He could do better with routine exercise we discussed this in detail. We did check an echo for Ao dilation which remains very mild. I will continue to follow him up periodically. Thank you for allowing me the privilege of participating in the care of your patient. Please do nothesitate to contact me if there are any questions. Gerson Young DO, FACC, FCCP, FACOI CC: Abe Gilmore MD [address] [place] [address] documented in this encounter[facility] Telephone encounter Note * Telephone Encounter - Wil Lino RN - 11/17/2023 3:43 PM EDT Pt called regarding echo results. Called pt with echo results. Pt verbalized understanding. No questions at this time and will follow up as scheduled. [facility]04-23-[facility] Miscellaneous Notes* Telephone Encounter - Wil Lino RN - 11/17/2023 3:43 PM EDT Pt called regarding echo results. Called pt with echo results. Pt verbalized understanding. No questions at this time and will follow up as scheduled. * Telephone Encounter - Turner Santizo RN - 11/17/2023 1:17 PM EDT Called pt left VM to call us to discuss results. Please call the patient and let them know that the heart pumping function is normal. Borderline dilated aorta >>> this is something that we will watch. Nothing to do different at this time.Good BP control and low salt diet recommended. No new recommendations. Follow up as scheduled. Carolina Gutiérrez APRN.FORMING DEPARTMENT END FINDER documented in this encounterMer[facility]04[facility]24 Telephone encounter Note * Telephone Encounter - Turner Santizo RN - 11/17/2023 1:17 PM EDT Called pt left VM to call us to discuss results. Please call the patient and let them know that the heart pumping function is normal. Borderline dilated aorta >>> this is something that we will watch. Nothing to do different at this time.Good BP control and low salt diet recommended. No new recommendations. Follow up as scheduled. Carolina Gutiérrez APRN.FORMING DEPARTMENT END FINDER [facility]04-17-2024 Miscellaneous Notes* Telephone Encounter - Cassidy Lee LPN - 11/11/2023 10:05 AM EDT Patient notified. * Telephone Encounter - Abe Gilmore MD - 11/10/2023 5:30 PM EDT Let him know sugars are better. documented in this encounterMercy [facility]11[facility]29-[facility] History of Present illness Narrative* Carolina Gutiérrez, LIFTER/DRIVER.FORMING DEPARTMENT END FINDER - 06/24/2023 3:00 PM EST Images from the original note were not included. Heart and Vascular [address] Department of Cardiovascular Medicine SECTION OF CLINICAL CARDIOLOGY OUTPATIENT VISIT DATE June 24, 2023 OUTPATIENT VISIT TYPE ESTABLISHED Elements of this note, including but not limited to HPI, ROS, Physical Exam, Assessment and Plan were copied and pasted from previous office visit notes completed within our department. Updates have been made where appropriate/noted and reflect current exam and medical decision making from date of this visit. Patient Name: Zion Marsh : 1945 PRIMARY CARE PHYSICIAN: Abe Gilmore MD CHIEF COMPLAINT: Patient presents with: Follow Up Interval Hx: Mr. Marsh comes for a follow up visit. The last office visit visit with Dr. Young was 06/05/2022. Patient with 0 hospitalizations or ER visits since last OV. Since last office visit patient has been feeling real good. Patient working 4 hours a day No chest pain No SOB Limited most by OA pain NO D/L No syncope No falls Taking meds - no SE Not checking BP at home Able to do ADL's Sleep is really good right now 7.5 hours per night Compliant with CPAP - feels it is helpful. Appetite is good Fair hydration No GI/ bleeding Taking ASA EOD. No LE edema No bloating IMPRESSION/PLAN: 1.CAD - [facility] 2010: moderate disease - continue ASA and statin therapy 2.Syncope - last occurrence 2018 3.Enlarged Thoracic Aorta - echo 11/2021: Sinus: 3.8 cm. Mid ascending aorta 4.0 cm. Distal ascending aorta 3.8 cm. - focus on good BP control - recheck echo 4.HTN - good control - continue same meds 5.HLD - FLP 03/2023 - LDL 71 - continue current Statin I spent a total of 25 minutes on the date of the service which included preparing to see the patient, [id number] patient care, completing clinical documentation, performing a medically appropriate examination, counseling and educating the patient/family/caregiver, ordering medications, tests, or p rocedures, independently interpreting results (not separately reported), and communicating results to the patient/family/caregiver. Thank you very much for allowing me to assist in the care of Zion Marsh. The above information was discussed at length and detail with the patient who verbalized an understanding of the plan and was given ample opportunity to ask questions. The appropriate follow up has been arranged. I have advised the patient to contact me if any questions/problems arise prior to the follow up. Carolina Gutiérrez APRN.[facility] Cardiology Nurse Practitioner Section of Regional Cardiology [facility] Dept of Cardiovascular Medicine [facility] Heart and Vascular [place] [address] [place] [address] Office Office June 24, 2023 11:52 AM This note was partially generated using [employer] voice recognition system and may contain errors related to that system including grammar, punctuation, spelling, and words that may be inappropriate. CARDIAC STUDIES: LV Ejection Fraction (%) Date Value 11/26/2021 61 11/27/2020 64 06/29/2019 59 07/23/2015 57 LABS: Sodium (mmol/L) Date Value 04/14/2023 139 01/01/2022 137 09/17/2020 140 05/24/2020 140 Potassium (mmol/L) Date Value 04/14/2023 4.2 01/01/2022 4.4 09/17/2020 4.3 05/24/2020 4.5 BUN (mg/dL) Date Value 04/14/2023 14 01/01/2022 18 10/07/2021 12 09/17/2020 13 05/24/2020 12 06/23/2019 15 01/17/2019 17 Creatinine (mg/dL) Date Value 04/14/2023 0.94 01/01/2022 0.92 10/07/2021 1.02 09/17/2020 1.07 05/24/2020 0.94 06/23/2019 0.85 01/17/2019 0.96 Magnesium (mg/dL) Date Value 08/24/2015 2.0 Hemoglobin (g/dL) Date Value 04/14/2023 13.5 05/28/2022 13.1 04/16/2021 13.2 05/24/2020 13.8 No results found for: PROBNP No results found for: HSTNT Cholesterol, Total (mg/dL) Date Value 04/14/2023 133 09/17/2020 139 HDL Cholesterol (mg/dL) Date Value 04/14/2023 46 09/17/2020 44 Triglyceride (mg/dL) Date Value 04/14/2023 78 09/17/2020 123 LDL Cholesterol (mg/dL) Date Value 04/14/2023 71 09/17/2020 70 No results found for: TSH PT INR (no units) Date Value 02/05/2015 1.1 EKG completed in the office today shows SB, IRBBB I have personally reviewed the Electrocardiogram. PHYSICAL EXAMINATION: Vitals: BP 120/56 (BP Site: Left Arm, BP Position: Sitting, BP Cuff Size: Large Adult) Pulse (!) 54 Wt 101.2 kg (223 lb 1.7 oz) SpO2 98% BMI 31.12 kg/m General: Well appearing, in no acute distress. Skin: No clubbing, no cyanosis. Eyes: Extra ocular movements intact Oropharynx: Teeth in good repair. Neck: No jugular venous distention, no carotid bruits, carotids have a normal upstroke, no palpablethyromegaly. Lungs: Clear to auscultation bilaterally, no wheezing or rhonchi. Heart: Regular rhythm, PMI not displaced, S1, S2 normal, no S3, no S4, no heaves, no rub and no murmur. Abdomen: Soft, nontender, bowel sounds normal, no palpable organomegaly, no bruits. Extremities: No peripheral edema . Grade 2/4 distal pulses bilaterally. Neuro: Oriented to person, place and time, alert, cooperative, gait coordinated. ALLERGIES: Patient has no known allergies. 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 Coronary artery disease Elevated BP 01/02/2011 Esophagitis, unspecified GENERAL OSTEOARTHROSIS 07/29/2007 GERD (gastroesophageal reflux disease) Heartburn gastritis Hypertension Impaired fasting glucose WI, old silent on EKG Mixed hyperlipidemia 07/21/2008 Personal history of colonic polyps Renal calculi Snoring Syncope 06/23/2019 Umbilical hernia 11/14/2009 SOCIAL HISTORY: Social History Tobacco Use Smoking status: Never Smokeless tobacco: Never Substance Use Topics Alcohol use: No Drug use: No FAMILY HISTORY: FAMILY HISTORY Problem Relation Age of Onset Heart Mother [place] Heart Brother Cancer Brother bone None Father unknown Heart Brother 45 [place] I have confirmed and edited as necessary, the PFSH and ROS obtained by others. Carolina Gutiérrez APRN.CNP CURRENT MEDICATIONS: Current Outpatient Medications Medication Sig atorvastatin (LIPITOR) 40 mg tablet Take 1 tablet by mouth daily at bedtime. doxazosin (CARDURA) 4 mg tablet Take 1 tablet by mouth once daily. losartan (COZAAR) 50 mg tablet Take 1 tablet by mouth once daily. venlafaxine ER (EFFEXOR XR) 150 mg 24 hr capsule Take 1 capsule by mouth once daily. omeprazole (PRILOSEC) 20 mg capsule TAKE 2 CAPSULES BY MOUTH DAILY BEFORE BREAKFAST. tamsulosin (FLOMAX) 0.4 mg Take 0.4 mg by mouth daily at bedtime. tramadol HCl (TRAMADOL ORAL) Take 50 mg by mouth four times daily. gabapentin (NEURONTIN) 100 mg capsule Take 100 mg by mouth daily at bedtime. finasteride (PROSCAR) 5 mg tablet Take 1 tablet by mouth once daily. aspirin, enteric coated (ASPIRIN, ENTERIC COATED) 81 mg EC tablet Take 1 tablet by mouth once daily. No current facility-administered medications for this visit. documented in this encounterMercy [facility]11-29-2023 Instructions* Patient Instructions* Carolina Gutiérrez APRN.CNP - 06/24/2023 2:48 PM EST You look great!! Continue to be as active as you can. Schedule an echo to look at the heart pumping function and the aorta. Ok to schedule this in [place]. You will need to call to schedule. No indication for stress testing at this time. Continue same medications documented in this encounterMercy [facility]. [facility]10[facility] History of Present illness Narrative* Abe Gilmore MD - 05/19/2023 8:03 AM EDT Patient presents with: Sleep Apnea HPI: Patient presents today for office visit for face to face sleep apnea follow up. Needs replacement CPAP machine. DME: [employer] [facility]: uses CPAP regularly. Sleeps well: Yes. Feels rested on awakening: Yes No daytime fatigue: No. Usually takes a nap throughout the day. Snoring: No Last titration was 2018. Machine is about 8 years old and it is no longer working at all. Definitely benefits from its use. Settings have not changed since last titration. Bp is good. No chest pain or shortness of breath. Rare edema. Still follows with cardiology. Urination is stable. Still seeing cardiology. Still seeing rheumatology who writes his meds. No issues with cholesterol meds. His rls is controlled by gabapentin which he uses prn. Emotionally is doing well. No significant anxiety. Component Latest Ref Rng & Units 04/14/2023 WBC 3.70 - 11.00 k/uL 4.84 RBC 4.20 - 6.00 m/uL 4.42 Hemoglobin 13.0 - 17.0 g/dL 13.5 Hematocrit 39.0 - 51.0 % 41.0 MCV 80.0 - 100.0 fL 92.8 MCH 26.0 - 34.0 pg 30.5 MCHC 30.5 - 36.0 g/dL 32.9 RDW-CV 11.5 - 15.0 % 12.5 Platelet Count 150 - 400 k/uL 159 MPV 9.0 - 12.7 fL 10.2 Neut% % 53.9 Abs Neut (ANC) 1.45 - 7.50 k/uL 2.61 Lymph% % 30.8 Abs Lymph 1.00 - 4.00 k/uL 1.49 [place]% % 7.9 Abs [place] <0.87 k/uL 0.38 Eosin% % 6.2 Abs Eosin <0.46 k/uL 0.30 Baso% % 1.0 Abs Baso <0.11 k/uL 0.05 Immature Gran % % 0.2 IMMATURE GRANS (ABS) <0.10 k/uL <0.03 NRBC /100 WBC 0.0 Absolute nRBC <0.01 k/uL <0.01 DTYPE Auto Protein, Total 6.3 - 8.0 g/dL 7.0 Albumin 3.9 - 4.9 g/dL 4.3 Calcium 8.5 - 10.2 mg/dL 9.1 Bilirubin, Total 0.2 - 1.3 mg/dL 0.4 Alkaline Phosphatase 38 - 113 U/L 66 AST 14 - 40 U/L 27 ALT 10 - 54 U/L 21 Glucose 74 - 99 mg/dL 95 BUN 9 - 24 mg/dL 14 Creatinine 0.73 - 1.22 mg/dL 0.94 Sodium 136 - 144 mmol/L 139 Potassium 3.7 - 5.1 mmol/L 4.2 Chloride 97 - 105 mmol/L 104 CO2 22 - 30 mmol/L 25 Anion Gap 9 - 18 mmol/L 10 eGFR >=60 mL/min/1.73m 83 Cholesterol, Total <200 mg/dL 133 Triglyceride <150 mg/dL 78 HDL Cholesterol >39 mg/dL 46 Non HDL Cholesterol <130 mg/dL 87 Fasting Time hrs 11 VLDL Cholesterol <30 mg/dL 16 TC:HDL Ratio <5.10 2.89 LDL Cholesterol <100 mg/dL 71 LDL:HDL Ratio <2.54 1.54 Hemoglobin A1C 4.3 - 5.6 % 5.6 Estimated Average Glucose mg/dL 114 MEDICATIONS: Current Outpatient Medications Medication Sig atorvastatin (LIPITOR) 40 mg tablet Take 1 tablet by mouth daily at bedtime. doxazosin (CARDURA) 4 mg tablet Take 1 tablet by mouth once daily. losartan (COZAAR) 50 mg tablet Take 1 tablet by mouth once daily. venlafaxine ER (EFFEXOR XR) 150 mg 24 hr capsule Take 1 capsule by mouth once daily. omeprazole (PRILOSEC) 20 mg capsule TAKE 2 CAPSULES BY MOUTH DAILY BEFORE BREAKFAST. tamsulosin (FLOMAX) 0.4 mg Take 0.4 mg by mouth daily at bedtime. tramadol HCl (TRAMADOL ORAL) Take 50 mg by mouth four times daily. gabapentin (NEURONTIN) 100 mg capsule Take 100 mg by mouth daily at bedtime. finasteride (PROSCAR) 5 mg tablet Take 1 tablet by mouth once daily. aspirin, enteric coated (ASPIRIN, ENTERIC COATED) 81 mg EC tablet Take 1 tablet by mouth once daily. No current facility-administered medications for this visit. 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 Coronary artery disease Elevated BP 01/02/2011 Esophagitis, unspecified GENERAL OSTEOARTHROSIS 07/29/2007 GERD (gastroesophageal reflux disease) Heartburn gastritis Hypertension Impaired fasting glucose [place], old silent on EKG Mixed hyperlipidemia 07/21/2008 Personal history of colonic polyps Renal calculi Snoring Syncope 06/23/2019 Umbilical hernia 11/14/2009 PAST SURGICAL HISTORY Procedure Laterality Date APPENDECTOMY ARTHRP ACETBLR/PROX FEM PROSTC AGRFT/ALGRFT 07/02/09 right Hip replacement, total ARTHRP ACETBLR/PROX FEM PROSTC AGRFT/ALGRFT 08/27/09 left Hip replacement, total CARDIAC CATH 12/30/10 no stents COLONOSCOPY FLX DX W/COLLJ SPEC WHEN PFRMD 11-23-13 diverticulosis, repeat in 5 years COLONOSCOPY FLX DX W/COLLJ SPEC WHEN PFRMD 12/06/2018 Colonoscopy COLONOSCOPY W/BIOPSY SINGLE/MULTIPLE ?, 10/10/08 EGD TRANSORAL BIOPSY SINGLE/MULTIPLE 10/10/08 ESOPHAGOGASTRODUODENOSCOPY TRANSORAL DIAGNOSTIC 01/14/16 EGD INGUINAL HERNIA REPAIR HX right PAST SURGICAL HISTORY OF basket retrieval kidney stones RECONSTRUCTION ROTATOR CUFF AVULSION CHRONIC 04/2011 right-workers comp ROTATOR CUFF REPAIR 2011 left, [place] SALIVARY SURG UNLISTED PROC ? 1970s ? Mass removed from right cheek FAMILY HISTORY Problem Relation Age of Onset Heart Mother [place] Heart Brother Cancer Brother bone None Father unknown Heart Brother 45 [place] Social History Tobacco Use Smoking status: Never Smokeless tobacco: Never Substance Use Topics Alcohol use: No Drug use: No Reviewed current medications, allergies, past medical history, surgical history, family history andsocial history today. REVIEW OF SYSTEMS All other reviewed and negative other than HPI. HEALTH MAINTENANCE: Reviewed health maintenance issues today and recommended the following in detail. RSV Vaccine(1 - 1-dose 60+ series) Never done VITALS: BP 106/50 Pulse (!) 53 Ht 180.3 cm (5' 11) Wt 101.5 kg (223 lb 12.8 oz) SpO2 97% BMI 31.21 kg/m Last 4 Encounter Wt Readings: Date: Wt: 04/24/2023 100.2 kg (221 lb) 10/22/2022 101.2 kg (223 lb) 07/24/2022 102.2 kg (225 lb 6.4 oz) 06/05/2022 102.6 kg (226 lb 1.6 oz) PHYSICAL EXAMINATION: General appearance: Well appearing, alert, in no acute distress, well-hydrated, well nourished. Skin: Skin color, texture, turgor normal, no suspicious rashes or lesions Head: Normocephalic, no masses, lesions, tenderness or abnormalitie Lungs: Lungs clear to auscultation. No wheezing, rhonchi, rales Heart: RRR without murmur, gallop, or rubs. No ectopy Abdomen: Normal abdominal exam, Abdomen soft, non-tender. Bowel sounds normal. No masses, organomegaly Extremities: No deformities, edema, skin discoloration, clubbing or cyanosis. Good capillary refill. ASSESSMENT/PLAN: 1. JOSE (obstructive sleep apnea) - ICD9: 327.23, ICD10: G47.33 (primary diagnosis) - will benefit from new machine. - script signed for replacement machine. 2. Coronary artery disease involving [place] heart without angina pectoris, unspecified vessel or lesion type - ICD9: 414.01, ICD10: I25.10 - stable. 3. Mixed hyperlipidemia - ICD9: 272.2, ICD10: E78.2 - stable. 4. Enlarged thoracic aorta (HCC) - ICD9: 447.8, ICD10: I77.89 - per cardiology 5. Essential hypertension - ICD9: 401.9, ICD10: I10 - Controlled - Continue current medications 6. Dysmetabolic syndrome - ICD9: 277.7, ICD10: E88.810 - HGB A1C 7. BPH with urinary obstruction - ICD9: 600.01, 599.69, ICD10: N40.1, N13.8 - stable. 8. Hyperglycemia - ICD9: 790.29, ICD10: R73.9 - HGB A1C Abe Gilmore MD documented in this encounter[facility] History of Present illness Narrative* Abe Gilmore MD - 04/24/2023 10:23 AM EDT Patient presents with: Hypertension Hyperlipidemia Physical HPI: Patient presents today for office visit for check up. Not a medicare wellness. HTN: Patient is compliant with meds Yes Denies side effects: Yes. Chest pain: No. Dyspnea: No. Edema: No. Palpitations: No. Syncope: No. Headache: No. Dizziness: No. GERD: Patient takes: omeprazole Heartburn is controlled: Yes. Bloody or black stools: No. Bowel changes: No. HYPERLIPIDEMIA: Patient is taking medications: Yes. Patient is watching diet: Yes. Patient denies myalgias: Yes. Patient denies gi upset: Yes JOSE: still using cpap. No snoring. Sleeping well. Is benefiting from its use. PSYCH:emotionally is doing well. OA: still stable. Per Dr. Jain. She prescribes domenic and tramadol. Follows with Rheum, cardiology. Urology. Component Latest Ref Rng & Units 04/14/2023 WBC 3.70 - 11.00 k/uL 4.84 RBC 4.20 - 6.00 m/uL 4.42 Hemoglobin 13.0 - 17.0 g/dL 13.5 Hematocrit 39.0 - 51.0 % 41.0 MCV 80.0 - 100.0 fL 92.8 MCH 26.0 - 34.0 pg 30.5 MCHC 30.5 - 36.0 g/dL 32.9 RDW-CV 11.5 - 15.0 % 12.5 Platelet Count 150 - 400 k/uL 159 MPV 9.0 - 12.7 fL 10.2 Neut% % 53.9 Abs Neut (ANC) 1.45 - 7.50 k/uL 2.61 Lymph% % 30.8 Abs Lymph 1.00 - 4.00 k/uL 1.49 [place]% % 7.9 Abs [place] <0.87 k/uL 0.38 Eosin% % 6.2 Abs Eosin <0.46 k/uL 0.30 Baso% % 1.0 Abs Baso <0.11 k/uL 0.05 Immature Gran % % 0.2 IMMATURE GRANS (ABS) <0.10 k/uL <0.03 NRBC /100 WBC 0.0 Absolute nRBC <0.01 k/uL <0.01 DTYPE Auto Protein, Total 6.3 - 8.0 g/dL 7.0 Albumin 3.9 - 4.9 g/dL 4.3 Calcium 8.5 - 10.2 mg/dL 9.1 Bilirubin, Total 0.2 - 1.3 mg/dL 0.4 Alkaline Phosphatase 38 - 113 U/L 66 AST 14 - 40 U/L 27 ALT 10 - 54 U/L 21 Glucose 74 - 99 mg/dL 95 BUN 9 - 24 mg/dL 14 Creatinine 0.73 - 1.22 mg/dL 0.94 Sodium 136 - 144 mmol/L 139 Potassium 3.7 - 5.1 mmol/L 4.2 Chloride 97 - 105 mmol/L 104 CO2 22 - 30 mmol/L 25 Anion Gap 9 - 18 mmol/L 10 eGFR >=60 mL/min/1.73m 83 Cholesterol, Total <200 mg/dL 133 Triglyceride <150 mg/dL 78 HDL Cholesterol >39 mg/dL 46 Non HDL Cholesterol <130 mg/dL 87 Fasting Time hrs 11 VLDL Cholesterol <30 mg/dL 16 TC:HDL Ratio <5.10 2.89 LDL Cholesterol <100 mg/dL 71 LDL:HDL Ratio <2.54 1.54 Hemoglobin A1C 4.3 - 5.6 % 5.6 Estimated Average Glucose mg/dL 114 MEDICATIONS: Current Outpatient Medications Medication Sig atorvastatin (LIPITOR) 40 mg tablet Take 1 tablet by mouth daily at bedtime. doxazosin (CARDURA) 4 mg tablet Take 1 tablet by mouth once daily. losartan (COZAAR) 50 mg tablet Take 1 tablet by mouth once daily. venlafaxine ER (EFFEXOR XR) 150 mg 24 hr capsule Take 1 capsule by mouth once daily. tamsulosin (FLOMAX) 0.4 mg Take 0.4 mg by mouth daily at bedtime. omeprazole (PRILOSEC) 20 mg capsule TAKE 2 CAPSULES BY MOUTH DAILY BEFORE BREAKFAST. tramadol HCl (TRAMADOL ORAL) Take 50 mg by mouth four times daily. gabapentin (NEURONTIN) 100 mg capsule Take 100 mg by mouth daily at bedtime. finasteride (PROSCAR) 5 mg tablet Take 1 tablet by mouth once daily. aspirin, enteric coated (ASPIRIN, ENTERIC COATED) 81 mg EC tablet Take 1 tablet by mouth once daily. No current facility-administered medications for this visit. 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 Coronary artery disease Elevated BP 01/02/2011 Esophagitis, unspecified GENERAL OSTEOARTHROSIS 07/29/2007 GERD (gastroesophageal reflux disease) Heartburn gastritis Hypertension Impaired fasting glucose [place], old silent on EKG Mixed hyperlipidemia 07/21/2008 Personal history of colonic polyps Renal calculi Snoring Syncope 06/23/2019 Umbilical hernia 11/14/2009 PAST SURGICAL HISTORY Procedure Laterality Date APPENDECTOMY ARTHRP ACETBLR/PROX FEM PROSTC AGRFT/ALGRFT 07/02/09 right Hip replacement, total ARTHRP ACETBLR/PROX FEM PROSTC AGRFT/ALGRFT 08/27/09 left Hip replacement, total CARDIAC CATH 12/30/10 no stents COLONOSCOPY FLX DX W/COLLJ SPEC WHEN PFRMD 11-23-13 diverticulosis, repeat in 5 years COLONOSCOPY FLX DX W/COLLJ SPEC WHEN PFRMD 12/06/2018 Colonoscopy COLONOSCOPY W/BIOPSY SINGLE/MULTIPLE ?, 10/10/08 EGD TRANSORAL BIOPSY SINGLE/MULTIPLE 10/10/08 ESOPHAGOGASTRODUODENOSCOPY TRANSORAL DIAGNOSTIC 01/14/16 EGD INGUINAL HERNIA REPAIR HX right PAST SURGICAL HISTORY OF basket retrieval kidney stones RECONSTRUCTION ROTATOR CUFF AVULSION CHRONIC 04/2011 right-workers comp ROTATOR CUFF REPAIR 2011 left, [place] SALIVARY SURG UNLISTED PROC ? 1970s ? Mass removed from right cheek FAMILY HISTORY Problem Relation Age of Onset Heart Mother [place] Heart Brother Cancer Brother bone None Father unknown Heart Brother 45 [place] Social History Tobacco Use Smoking status: Never Smokeless tobacco: Never Substance Use Topics Alcohol use: No Drug use: No Reviewed current medications, allergies, past medical history, surgical history, family history andsocial history today. REVIEW OF SYSTEMS GI: Negative for change in bowel habit All other reviewed and negative other than HPI. HEALTH MAINTENANCE: Reviewed health maintenance issues today and recommended the following in detail. Covid-19 Vaccine(4 - Pfizer series) due on 07/29/2021 Influenza Vaccine(1) due on 03/27/2023 VITALS: BP 118/65 Pulse (!) 55 Wt 100.2 kg (221 lb) SpO2 98% BMI 30.82 kg/m Last 4 Encounter Wt Readings: Date: Wt: 04/24/2023 100.2 kg (221 lb) 10/22/2022 101.2 kg (223 lb) 07/24/2022 102.2 kg (225 lb 6.4 oz) 06/05/2022 102.6 kg (226 lb 1.6 oz) PHYSICAL EXAMINATION: General appearance: Well appearing, alert, in no acute distress, well-hydrated, well nourished. Skin: Skin color, texture, turgor normal, no suspicious rashes or lesions Head: Normocephalic, no masses, lesions, tenderness or abnormalities Neck: Supple, no adenopathy; thyroid symmetric, normal size, no bruits Lungs: Lungs clear to auscultation. No wheezing, rhonchi, rales Heart: RRR without murmur, gallop, or rubs. No ectopy Abdomen: Normal abdominal exam, Abdomen soft, non-tender. Bowel sounds normal. No masses, organomegaly Extremities: No deformities, edema, skin discoloration, clubbing or cyanosis. Good capillary refill. Musculoskeletal: No joint swelling, deformity, or tenderness Peripheral pulses: Normal Neuro: Negative. ASSESSMENT/PLAN: 1. Essential hypertension - ICD9: 401.9, ICD10: I10 (primary diagnosis) - Controlled - Continue current medications - DOXAZOSIN 4 MG TABLET - LOSARTAN 50 MG TABLET 2. BPH with urinary obstruction - ICD9: 600.01, 599.69, ICD10: N40.1, N13.8 - continue current meds. - DOXAZOSIN 4 MG TABLET 3. Gastroesophageal reflux disease without esophagitis - ICD9: 530.81, ICD10: K21.9 - OMEPRAZOLE 20 MG CAPSULE,DELAYED RELEASE 4. Encounter for immunization - ICD9: V03.89, ICD10: Z23 - INFLUENZA VACCINE, PRSV FREE, AGE 65+ YR, HIGH DOSE, QUADRIVALENT (FLUZONE HIGH-DOSE) 5. Coronary artery disease involving [place] heart without angina pectoris, unspecified vessel or lesion type - ICD9: 414.01, ICD10: I25.10 - continue to see cardiology. Call if any issues. 6. Enlarged thoracic aorta (HCC) - ICD9: 447.8, ICD10: I77.89 - stable. 7. Mixed hyperlipidemia - ICD9: 272.2, ICD10: E78.2 - doing well. 8. JOSE (obstructive sleep apnea) - ICD9: 327.23, ICD10: G47.33 - continue well 9. Dysmetabolic syndrome - ICD9: 277.7, ICD10: E88.81 - stable 10. Adjustment disorder with depressed mood - ICD9: 309.0, ICD10: F43.21 - continue meds. Abe Gilmore RTO in six months and prn. documented in this encounter[facility]09[facility]22-2023 Miscellaneous Notes* Telephone Encounter - Hortencia Phan Ma - 04/17/2023 11:31 AM EDT Patient was made aware of the results. Patient verbalizes understanding. Hortencia Phan Ma * Telephone Encounter - Hortencia Phan Ma - 04/17/2023 11:28 AM EDT ----- Message from Iva Asher PA-C sent at 04/16/2023 9:00 PM EDT ----- Please let him know labs all look great. Brian Pérez PA-C documented in this encounterMer[facility]09-09-2023 Miscellaneous Notes* Telephone Encounter - Iva Asher PA-C - 04/04/2023 11:39 AM EDT Telephone on 04/02/23 HGB A1C LIPID PANEL BASIC CBC + DIFF COMP METABOLIC PANEL Brian Pérez PA-C * Telephone Encounter - Danni Mckeon Ma - 04/02/2023 12:32 PM EDT Routing to pcp since appointment is later this month. Please review/ file pended labs. Patient has CBC/CMP done by outpatient pharmacy manager in January not sure if you want repeat Danni Mckeon Ma * Telephone Encounter - Ashley Quezada - 04/02/2023 11:36 AM EDT Pt coming in for next appt 04/24/23. If lab tests are needed he is scheduled for lab on 04/14/23. [address] orders. If not needed his lab appt can be canceled. documented in this encounterMer[facility]04-04-2023 Miscellaneous Notes* Telephone Encounter - Ashley Talavera Pss - 10/28/2022 4:15 PM EDT Pharmacy verified in [facility] Patient has been identified by name and date of : Yes Patient aware RX will be sent to pharmacy. No need to notify patient. Spouse phones for refill(s): Requested Prescriptions Pending Prescriptions Disp Refills atorvastatin (LIPITOR) 40 mg tablet 90 tablet 1 Sig: Take 1 tablet by mouth daily at bedtime. doxazosin (CARDURA) 4 mg tablet 90 tablet 1 Sig: Take 1 tablet by mouth once daily. losartan (COZAAR) 50 mg tablet 90 tablet 1 Sig: Take 1 tablet by mouth once daily. venlafaxine ER (EFFEXOR XR) 150 mg 24 hr capsule 90 capsule 1 Sig: Take 1 capsule by mouth once daily. Date of last office visit : 10/22/2022 Date of next office visit : 04/24/2023 Last 2 Encounter Wt Readings: Date: Wt: 10/22/2022 101.2 kg (223 lb) 07/24/2022 102.2 kg (225 lb 6.4 oz) Please advise. Ashley Talavera Pss documented in this encounterMer[facility]03-29-2023 History of Present illness Narrative* Abe Gilmore MD - 10/22/2022 9:38 AM EDT Patient presents with: 6 Month Exam HPI: Patient presents today for office visit for follow up. No concerns today. Overall feeling good. HTN: Monitors BP occasionally Stable No chest pain or shortness of breath No headache or dizziness No edema No syncope No palpitations Follows with Urology. Continues on Tamsulosin and Finasteride. No urinary concerns. CAD: Followed by Cardiology. Last seen 06/05/22. Syncope 05/2019 without recurrence. GERD: Continues on Omeprazole. Symptoms controlled. Denies any issues. Continues to see Dr Jain for his oa. She is keeping him on gabapentin and tramadol prn. JOSE: still uses cpap. Is benefiting from its use. Often has issues using it. Would like to see a sleep dr. MEDICATIONS: Current Outpatient Medications Medication Sig tamsulosin (FLOMAX) 0.4 mg Take 0.4 mg by mouth daily at bedtime. omeprazole (PRILOSEC) 20 mg capsule TAKE 2 CAPSULES BY MOUTH DAILY BEFORE BREAKFAST. atorvastatin (LIPITOR) 40 mg tablet Take 1 tablet by mouth daily at bedtime. venlafaxine ER (EFFEXOR XR) 150 mg 24 hr capsule Take 1 capsule by mouth once daily. doxazosin (CARDURA) 4 mg tablet Take 1 tablet by mouth once daily. losartan (COZAAR) 50 mg tablet Take 1 tablet by mouth once daily. tramadol HCl (TRAMADOL ORAL) Take 50 mg by mouth four times daily. gabapentin (NEURONTIN) 100 mg capsule Take 100 mg by mouth daily at bedtime. finasteride (PROSCAR) 5 mg tablet Take 1 tablet by mouth once daily. aspirin, enteric coated (ASPIRIN, ENTERIC COATED) 81 mg EC tablet Take 1 tablet by mouth once daily. Current Facility-Administered Medications Medication Dose Route Frequency perflutren lipid microspheres 1.3 mL in NaCl (PF) 0.9% 10 mL injection (DEFINITY) INTRAVENOUS DIRECTED PRN sodium chloride 0.9 % (flush) 10 mL (BD POSIFLUSH) 10 mL INTRAVENOUS DIRECTED PRN 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 Coronary artery disease Elevated BP 01/02/2011 Esophagitis, unspecified GENERAL OSTEOARTHROSIS 07/29/2007 GERD (gastroesophageal reflux disease) Heartburn gastritis Hypertension Impaired fasting glucose [place], old silent on EKG Mixed hyperlipidemia 07/21/2008 Personal history of colonic polyps Renal calculi Snoring Syncope 06/23/2019 Umbilical hernia 11/14/2009 PAST SURGICAL HISTORY Procedure Laterality Date APPENDECTOMY ARTHRP ACETBLR/PROX FEM PROSTC AGRFT/ALGRFT 07/02/09 right Hip replacement, total ARTHRP ACETBLR/PROX FEM PROSTC AGRFT/ALGRFT 08/27/09 left Hip replacement, total CARDIAC CATH 12/30/10 no stents COLONOSCOPY FLX DX W/COLLJ SPEC WHEN PFRMD 11-23-13 diverticulosis, repeat in 5 years COLONOSCOPY FLX DX W/COLLJ SPEC WHEN PFRMD 12/06/2018 Colonoscopy COLONOSCOPY W/BIOPSY SINGLE/MULTIPLE ?, 10/10/08 EGD TRANSORAL BIOPSY SINGLE/MULTIPLE 10/10/08 ESOPHAGOGASTRODUODENOSCOPY TRANSORAL DIAGNOSTIC 01/14/16 EGD INGUINAL HERNIA REPAIR HX right PAST SURGICAL HISTORY OF basket retrieval kidney stones RECONSTRUCTION ROTATOR CUFF AVULSION CHRONIC 04/2011 right-workers comp ROTATOR CUFF REPAIR 2011 left, [place] SALIVARY SURG UNLISTED PROC ? 1970s ? Mass removed from right cheek FAMILY HISTORY Problem Relation Age of Onset Heart Mother [place] Heart Brother Cancer Brother bone None Father unknown Heart Brother 45 [place] Social History Tobacco Use Smoking status: Never Smokeless tobacco: Never Substance Use Topics Alcohol use: No Drug use: No Reviewed current medications, allergies, past medical history, surgical history, family history andsocial history today. REVIEW OF SYSTEMS All other reviewed and negative other than HPI. HEALTH MAINTENANCE: Reviewed health maintenance issues today and recommended the following in detail. ADVANCE DIRECTIVE DISCUSSION -has dpoa, his children are his surrogates. DEPRESSION ASSESSMENT Never done LDL CHOLESTEROL due on 10/07/2022 VITALS: BP 120/56 Pulse (!) 56 Ht 180.3 cm (5' 11) Wt 101.2 kg (223 lb) SpO2 97% BMI 31.10 kg/m Last 4 Encounter Wt Readings: Date: Wt: 07/24/2022 102.2 kg (225 lb 6.4 oz) 06/05/2022 102.6 kg (226 lb 1.6 oz) 04/23/2022 108.9 kg (240 lb) 11/19/2021 106.3 kg (234 lb 6.4 oz) PHYSICAL EXAMINATION: General appearance: Well appearing, alert, in no acute distress, well-hydrated, well nourished. Skin: Skin color, texture, turgor normal, no suspicious rashes or lesions Head: Normocephalic, no masses, lesions, tenderness or abnormalities Eyes: Anicteric sclera. Pupils are equally round and reactive to light. Extraocular movements are intact. Lungs: Lungs clear to auscultation. No wheezing, rhonchi, rales Heart: RRR without murmur, gallop, or rubs. No ectopy Abdomen: Normal abdominal exam, Abdomen soft, non-tender. Bowel sounds normal. No masses, organomegaly Extremities: No deformities, edema, skin discoloration, clubbing or cyanosis. Good capillary refill. Musculoskeletal: No joint swelling, deformity, or tenderness ASSESSMENT/PLAN: 1. Coronary artery disease involving [place] heart without angina pectoris, unspecified vessel or lesion type - ICD9: 414.01, ICD10: I25.10 (primary diagnosis) -continue meds. 2. Enlarged thoracic aorta (HCC) - ICD9: 447.8, ICD10: I77.89 - per cardiology 3. Mixed hyperlipidemia - ICD9: 272.2, ICD10: E78.2 - good control - Continue current medication. - LIPID PANEL BASIC 4. Essential hypertension - ICD9: 401.9, ICD10: I10 - good control - Continue current medication(s) - Goal of BP <130/80 - CBC + DIFF - COMP METABOLIC PANEL 5. JOSE (obstructive sleep apnea) - ICD9: 327.23, ICD10: G47.33 - CONSULT TO SLEEP MEDICINE - ADULT 6. Gastroesophageal reflux disease without esophagitis - ICD9: 530.81, ICD10: K21.9 - continue to follow up . 7. BPH with urinary obstruction - ICD9: 600.01, 599.69, ICD10: N40.1, N13.8 - stable 8. Dysmetabolic syndrome - ICD9: 277.7, ICD10: E88.81 - HGB A1C 9. Adjustment disorder with depressed mood - ICD9: 309.0, ICD10: F43.21 - stable. 10. Primary osteoarthritis involving multiple joints - ICD9: 715.98, ICD10: M15.9 - per rheum - VITAMIN D 25 HYDROXY 11. Hyperglycemia - ICD9: 790.29, ICD10: R73.9 - HGB A1C 12. Vitamin D deficiency - ICD9: 268.9, ICD10: E55.9 - VITAMIN D 25 HYDROXY Abe Gilmore MD documented in this encounterMer[facility] Health [facility]12-29-2022 History of Present illness Narrative* Perri Almeida APRN.[facility] - 07/24/2022 11:07 AM EST Images from the original note were not included. Subjective Patient came in with complains of rash on right hip. Said it started about a week ago. Is not goingaway. Denies any other symptoms with it at this time. The history is provided by the patient. No humanities and languages professor was used. Rash Review of Systems Constitutional: Negative. Skin: Positive for rash. Objective Physical Exam Constitutional: Appearance: Normal appearance. Pulmonary: Effort: Pulmonary effort is normal. Musculoskeletal: Legs: Comments: Dry flaky circular rash located in area marked above. Consistent with ringworm. Neurological: Mental Status: He is alert. 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 Coronary artery disease Elevated BP 01/02/2011 Esophagitis, unspecified GENERAL OSTEOARTHROSIS 07/29/2007 GERD (gastroesophageal reflux disease) Heartburn gastritis Hypertension Impaired fasting glucose [place], old silent on EKG Mixed hyperlipidemia 07/21/2008 Personal history of colonic polyps Renal calculi Snoring Syncope 06/23/2019 Umbilical hernia 11/14/2009 PAST SURGICAL HISTORY Procedure Laterality Date APPENDECTOMY ARTHRP ACETBLR/PROX FEM PROSTC AGRFT/ALGRFT 07/02/09 right Hip replacement, total ARTHRP ACETBLR/PROX FEM PROSTC AGRFT/ALGRFT 08/27/09 left Hip replacement, total CARDIAC CATH 12/30/10 no stents COLONOSCOPY FLX DX W/COLLJ SPEC WHEN PFRMD 11-23-13 diverticulosis, repeat in 5 years COLONOSCOPY FLX DX W/COLLJ SPEC WHEN PFRMD 12/06/2018 Colonoscopy COLONOSCOPY W/BIOPSY SINGLE/MULTIPLE ?, 10/10/08 EGD TRANSORAL BIOPSY SINGLE/MULTIPLE 10/10/08 ESOPHAGOGASTRODUODENOSCOPY TRANSORAL DIAGNOSTIC 01/14/16 EGD INGUINAL HERNIA REPAIR HX right PAST SURGICAL HISTORY OF 1959's basket retrieval kidney stones RECONSTRUCTION ROTATOR CUFF AVULSION CHRONIC 04/2011 right-workers comp ROTATOR CUFF REPAIR 2011 left, [place] SALIVARY SURG UNLISTED PROC ? 1970s ? Mass removed from right cheek ALLERGIES Patient has no known allergies. MEDICATIONS omeprazole (PRILOSEC) 20 mg capsule^TAKE 2 CAPSULES BY MOUTH DAILY BEFORE BREAKFAST.^Disp: 180 capsule^Rfl: 3 atorvastatin (LIPITOR) 40 mg tablet^Take 1 tablet by mouth daily at bedtime.^Disp: 90 tablet^Rfl: 1 venlafaxine ER (EFFEXOR XR) 150 mg 24 hr capsule^Take 1 capsule by mouth once daily.^Disp: 90 capsule^Rfl: 1 doxazosin (CARDURA) 4 mg tablet^Take 1 tablet by mouth once daily.^Disp: 90 tablet^Rfl: 1 losartan (COZAAR) 50 mg tablet^Take 1 tablet by mouth once daily.^Disp: 90 tablet^Rfl: 1 tramadol HCl (TRAMADOL ORAL)^Take 50 mg by mouth four times daily.^Disp: ^Rfl: gabapentin (NEURONTIN) 100 mg capsule^Take 100 mg by mouth daily at bedtime.^Disp: ^Rfl: finasteride (PROSCAR) 5 mg tablet^Take 1 tablet by mouth once daily.^Disp: 90 tablet^Rfl: 1 tiZANidine (ZANAFLEX) 4 mg tablet^Take 1 tablet by mouth every 8 hours as needed.^Disp: 20 tablet^Rfl: 0 sildenafil (VIAGRA) 100 mg tablet^Take 1 tablet by mouth. TAKE 30-60 MINUTES BEFORE SEXUAL INTERCOURSE NEEDED. Do not exceed 100 mg in 24 hours^Disp: 6 tablet^Rfl: 5 aspirin, enteric coated (ASPIRIN, ENTERIC COATED) 81 mg EC tablet^Take 1 tablet by mouth once daily.^Disp: ^Rfl: 0 clotrimazole (LOTRIMIN, CLOTRIM) 1 % cream^Apply 1 application to affected area twice daily for 14 days. Can be used 2-4 weeks...... use for 3 days after area is completley healed up.^Disp: 28 g^Rfl:0 FAMILY HISTORY Problem Relation Age of Onset Heart Mother [place] Heart Brother Cancer Brother bone None Father unknown Heart Brother 45 [place] Social History Tobacco Use Smoking status: Never Smokeless tobacco: Never Substance Use Topics Alcohol use: No Drug use: No ASSESSMENT/PLAN: 1. Ringworm - ICD9: 110.9, ICD10: B35.9 Clotrimazole cream bid for 2-4 weeks. Patient ws okay with this care plan. Patient will follow up if symptoms seem to be getting worse not better. Perri Almeida APRN.CNP documented in this encounterMercy Health [facility]12[facility]29-2022 Instructions* Patient Instructions* Perri Almeida APRN.CNP - 07/24/2022 11:03 AM EST Diagnosis: Assessment TINEA CORPORIS (RINGWORM): Your exam shows you have ringworm, a common fungal infection seen frequently in children. This condition causes scaly red rings to form on the skin. It is often transferred to people from puppies andkittens. While it can be transferred between children, once treatment is begun your child does not need to miss school. Use Lotrimin or Micatin lotion or cream two times daily, and continue to treat for at least two weeks after the ringworm appears to be gone. Ringworm of the scalp is the most common cause of patchy hair loss in children; it often requires treatment with an oral medicine such as griseofulvin, Nizoral, Sporonox, Lamisil, or Diflucan. See your doctor for follow-up care as recommended. documented in this encounterMercy Health St. [facility]12-12-2022 Miscellaneous Notes* Telephone Encounter - Grecia Dietz - 07/07/2022 2:57 PM EST Patient has been identified by name and date of : Yes Requested Prescriptions Pending Prescriptions Disp Refills omeprazole (PRILOSEC) 20 mg capsule 180 capsule 3 Sig: TAKE 2 CAPSULES BY MOUTH DAILY BEFORE BREAKFAST. RX INSTRUCTIONS: Patient aware RX will be sent to pharmacy. No need to notify patient. Grecia Dietz documented in this encounterMercy Health St. [facility]11-03-2022 Miscellaneous Notes* Telephone Encounter - Cassidy Lee LPN - 05/29/2022 12:01 PM EDT Call to [facility] not covered. Spoke with patient they are going to go cigar packer and picker and pay for it. * Telephone Encounter - Ghazala Dietz - 05/29/2022 11:24 AM EDT Spouse called stating patient has two refills of ferrous sulfate left. When patient tried to cigar packer and picker at pharmacy they informed him they cannot release without authorization from provider. Please callspouse and advise. documented in this encounterMercy Health St. [facility]10-04-2022 Miscellaneous Notes* Telephone Encounter - MONCHO Salas - 04/29/2022 2:42 PM EDT ARON 04/23/22 Appointment scheduled 10/22/22 Please advise. Thank you. MONCHO Salas * Telephone Encounter - Ally Sequeira - 04/29/2022 2:01 PM EDT Patient has been identified by name and date of : Yes Requested Prescriptions Pending Prescriptions Disp Refills atorvastatin (LIPITOR) 40 mg tablet 90 tablet 1 Sig: Take 1 tablet by mouth daily at bedtime. venlafaxine ER (EFFEXOR XR) 150 mg 24 hr capsule 90 capsule 1 Sig: Take 1 capsule by mouth once daily. doxazosin (CARDURA) 4 mg tablet 90 tablet 1 Sig: Take 1 tablet by mouth once daily. RX INSTRUCTIONS: Patient aware RX will be sent to pharmacy. No need to notify patient. Ally Sequeira documented in this encounterMercy Health St. [facility]09-28-2022 History of Present illness Narrative* Abe Gilmore MD - 04/23/2022 10:39 AM EDT Patient presents with: Hernia: Umbilical hernia Hypertension: RF HPI: Patient presents today for office visit for umbilical hernia pain. RF on BP meds. HTN: Patient is compliant with meds Yes Monitors bp at home: Yes. Denies side effects: Yes. Chest pain: No. Dyspnea: No. Edema: No. Palpitations: No. Syncope: No. Headache: No. Dizziness: No. JOSE: still using cpap. Feels it is working well. Has had a chronic umbilical hernia. Has had a few episodes recently where it was uncomfortable. Moods have been good. Tolerating meds well. No issues with bowels and urine. Still seeing cardiology. Just had echo to assess his aorta. His anemia started after his hip replacement. Not taking iron. Appears to be post op but is slow torise Component Latest Ref Rng & Units 03/28/2022 WBC 3.70 - 11.00 k/uL 4.88 RBC 4.20 - 6.00 m/uL 4.34 Hemoglobin 13.0 - 17.0 g/dL 10.9 (L) Hematocrit 39.0 - 51.0 % 35.3 (L) MCV 80.0 - 100.0 fL 81.3 MCH 26.0 - 34.0 pg 25.1 (L) MCHC 30.5 - 36.0 g/dL 30.9 RDW-CV 11.5 - 15.0 % 14.4 Platelet Count 150 - 400 k/uL 196 MPV 9.0 - 12.7 fL 10.5 Neut% % 52.1 Abs Neut (ANC) 1.45 - 7.50 k/uL 2.54 Lymph% % 30.3 Abs Lymph 1.00 - 4.00 k/uL 1.48 [place]% % 9.0 Abs [place] <0.87 k/uL 0.44 Eosin% % 7.0 Abs Eosin <0.46 k/uL 0.34 Baso% % 1.2 Abs Baso <0.11 k/uL 0.06 Immature Gran % % 0.4 IMMATURE GRANS (ABS) <0.10 k/uL <0.03 NRBC /100 WBC 0.0 Absolute nRBC <0.01 k/uL <0.01 DTYPE Auto Hemoglobin A1C 4.3 - 5.6 % 6.3 (H) Estimated Average Glucose mg/dL 134 Hep C Antibody IA Negative Positive (A) HCV RNA by PCR HCV RNA not detected by PCR. HCV RNA not detected by PCR. Component Latest Ref Rng & Units 01/08/2022 01/09/2022 02/24/2022 WBC 3.70 - 11.00 k/uL 5.63 5.64 RBC 4.20 - 6.00 m/uL 3.59 (L) 4.09 (L) Hemoglobin 13.0 - 17.0 g/dL 10.1 (L) 10.6 (L) Hematocrit 39.0 - 51.0 % 33.6 (L) 35.2 (L) MCV 80.0 - 100.0 fL 93.6 86.1 MCH 26.0 - 34.0 pg 28.1 25.9 (L) MCHC 30.5 - 36.0 g/dL 30.1 (L) 30.1 (L) RDW-CV 11.5 - 15.0 % 13.2 13.2 Platelet Count 150 - 400 k/uL 277 185 MPV 9.0 - 12.7 fL 9.8 11.4 Neut% % 64.0 54.1 Abs Neut (ANC) 1.45 - 7.50 k/uL 3.61 3.05 Lymph% % 24.0 28.7 Abs Lymph 1.00 - 4.00 k/uL 1.35 1.62 [place]% % 6.4 8.2 Abs [place] <0.87 k/uL 0.36 0.46 Eosin% % 4.3 7.4 Abs Eosin <0.46 k/uL 0.24 0.42 Baso% % 0.9 1.2 Abs Baso <0.11 k/uL 0.05 0.07 Immature Gran % % 0.4 0.4 IMMATURE GRANS (ABS) <0.10 k/uL <0.03 <0.03 NRBC /100 WBC 0.4 0.0 Absolute nRBC <0.01 k/uL 0.02 (H) <0.01 DTYPE Auto Auto Iron 41 - 186 ug/dL 33 (L) TIBC 232 - 386 ug/dL 306 Transferrin Saturation 15.0 - 57.0 % 10.8 (L) Retic % 0.4 - 2.0 % 3.5 (H) Abs Retic 0.018 - 0.100 M/uL 0.126 (H) Occult Blood, Stool Negative Negative Ferritin 30.3 - 565.7 ng/mL 79.8 Vitamin B12 232-1,245 pg/mL 611 Folate >4.7 ng/mL >20.0 MEDICATIONS: Current Outpatient Medications Medication Sig atorvastatin (LIPITOR) 40 mg tablet Take 1 tablet by mouth daily at bedtime. doxazosin (CARDURA) 4 mg tablet Take 1 tablet by mouth once daily. venlafaxine ER (EFFEXOR XR) 150 mg 24 hr capsule Take 1 capsule by mouth once daily. losartan (COZAAR) 50 mg tablet Take 1 tablet by mouth once daily. omeprazole (PRILOSEC) 20 mg capsule TAKE 2 CAPSULES BY MOUTH DAILY BEFORE BREAKFAST. tramadol HCl (TRAMADOL ORAL) Take 50 mg by mouth four times daily. gabapentin (NEURONTIN) 100 mg capsule Take 100 mg by mouth daily at bedtime. finasteride (PROSCAR) 5 mg tablet Take 1 tablet by mouth once daily. tiZANidine (ZANAFLEX) 4 mg tablet Take 1 tablet by mouth every 8 hours as needed. sildenafil (VIAGRA) 100 mg tablet Take 1 tablet by mouth. TAKE 30-60 MINUTES BEFORE SEXUAL INTERCOURSE NEEDED. Do not exceed 100 mg in 24 hours aspirin, enteric coated (ASPIRIN, ENTERIC COATED) 81 mg EC tablet Take 1 tablet by mouth once daily. Current Facility-Administered Medications Medication Dose Route Frequency perflutren lipid microspheres 1.3 mL in NaCl (PF) 0.9% 10 mL injection (DEFINITY) INTRAVENOUS DIRECTED PRN sodium chloride 0.9 % (flush) 10 mL (BD POSIFLUSH) 10 mL INTRAVENOUS DIRECTED PRN 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 Coronary artery disease Elevated BP 01/02/2011 Esophagitis, unspecified GENERAL OSTEOARTHROSIS 07/29/2007 GERD (gastroesophageal reflux disease) Heartburn gastritis Hypertension Impaired fasting glucose [place], old silent on EKG Mixed hyperlipidemia 07/21/2008 Personal history of colonic polyps Renal calculi Snoring Syncope 06/23/2019 Umbilical hernia 11/14/2009 PAST SURGICAL HISTORY Procedure Laterality Date APPENDECTOMY ARTHRP ACETBLR/PROX FEM PROSTC AGRFT/ALGRFT 07/02/09 right Hip replacement, total ARTHRP ACETBLR/PROX FEM PROSTC AGRFT/ALGRFT 08/27/09 left Hip replacement, total CARDIAC CATH 12/30/10 no stents COLONOSCOPY FLX DX W/COLLJ SPEC WHEN PFRMD 11-23-13 diverticulosis, repeat in 5 years COLONOSCOPY FLX DX W/COLLJ SPEC WHEN PFRMD 12/06/2018 Colonoscopy COLONOSCOPY W/BIOPSY SINGLE/MULTIPLE ?, 10/10/08 EGD TRANSORAL BIOPSY SINGLE/MULTIPLE 10/10/08 ESOPHAGOGASTRODUODENOSCOPY TRANSORAL DIAGNOSTIC 01/14/16 EGD INGUINAL HERNIA REPAIR HX right PAST SURGICAL HISTORY OF basket retrieval kidney stones RECONSTRUCTION ROTATOR CUFF AVULSION CHRONIC 04/2011 right-workers comp ROTATOR CUFF REPAIR 2011 left, [place] SALIVARY SURG UNLISTED PROC ? 1970s ? Mass removed from right cheek FAMILY HISTORY Problem Relation Age of Onset Heart Mother [place] Heart Brother Cancer Brother bone None Father unknown Heart Brother 45 [place] Social History Tobacco Use Smoking status: Never Smokeless tobacco: Never Substance Use Topics Alcohol use: No Drug use: No Reviewed current medications, allergies, past medical history, surgical history, family history andsocial history today. REVIEW OF SYSTEMS All other reviewed and negative other than HPI. HEALTH MAINTENANCE: Reviewed health maintenance issues today and recommended the following in detail. INFLUENZA(1) due on 03/27/2022 VITALS: BP 128/58 Pulse (!) 59 Ht 180.3 cm (5' 11) Wt 108.9 kg (240 lb) SpO2 97% BMI 33.47 kg/m Last 4 Encounter Wt Readings: Date: Wt: 04/23/2022 108.9 kg (240 lb) 11/19/2021 106.3 kg (234 lb 6.4 oz) 10/23/2021 108.4 kg (239 lb) 05/21/2021 105.6 kg (232 lb 12.8 oz) PHYSICAL EXAMINATION: General appearance: Well appearing, alert, in no acute distress, well-hydrated, well nourished. Skin: Skin color, texture, turgor normal, no suspicious rashes or lesions Head: Normocephalic, no masses, lesions, tenderness or abnormalities Lungs: Lungs clear to auscultation. No wheezing, rhonchi, rales Heart: RRR without murmur, gallop, or rubs. No ectopy Abdomen: Abdomen soft, non-tender. Bowel sounds normal. No masses, organomegaly, still with umbilical hernia. Easily reducible. Extremities: No deformities, edema, skin discoloration, clubbing or cyanosis. Good capillary refill. Musculoskeletal: No joint swelling, deformity, or tenderness Peripheral pulses: Normal Neuro: Negative. ASSESSMENT/PLAN: 1. Coronary artery disease involving [place] heart without angina pectoris, unspecified vessel or lesion type - ICD9: 414.01, ICD10: I25.10 (primary diagnosis) - follow with cardiology 2. Encounter for immunization - ICD9: V03.89, ICD10: Z23 - INFLUENZA SEASONAL QUADRIVALENT HIGH DOSE AGE 65+ 3. Enlarged thoracic aorta (HCC) - ICD9: 447.8, ICD10: I77.89 --stabl3. 4. Essential hypertension - ICD9: 401.9, ICD10: I10 - good control - Continue current medication(s) - Goal of BP <130/80 - LOSARTAN 50 MG TABLET 5. Mixed hyperlipidemia - ICD9: 272.2, ICD10: E78.2 - good control - Encouraged following a low carbohydrate, healthy oil intake diet. 6. JOSE (obstructive sleep apnea) - ICD9: 327.23, ICD10: G47.33 - benefiting from its use 7. Gastroesophageal reflux disease without esophagitis - ICD9: 530.81, ICD10: K21.9 - stable. 8. Umbilical hernia without obstruction and without gangrene - ICD9: 553.1, ICD10: K42.9 - offered surgery referral. He wants to wait. Red flags for re-assessment reviewed with patient in detail. 9. BPH with urinary obstruction - ICD9: 600.01, 599.69, ICD10: N40.1, N13.8 - stable. 10. Adjustment disorder with depressed mood - ICD9: 309.0, ICD10: F43.21 - doing well. 11. Iron deficiency anemia, unspecified iron deficiency anemia type - ICD9: 280.9, ICD10: D50.9 - is post op. Add iron and follow labs. - FERROUS SULFATE 325 MG (65 MG IRON) TABLET - CBC + DIFF - IRON + TIBC Abe Gilmore documented in this encounterMercy Health St. [facility]09-21-2022 Miscellaneous Notes* Telephone Encounter - Cassidy Lee LPN - 04/16/2022 2:54 PM EDT Scheduled as requested. * Telephone Encounter - Abe Gilmore MD - 04/16/2022 2:24 PM EDT Can be seen that day if we have openings. Make sure not severe pain, nausea or vomiting. That is er * Telephone Encounter - Marcia Norwood LPN - 04/16/2022 1:45 PM EDT Patients has an appt on 04/23 at 10:20 and is wondering patient could be seen same day for umbilical hernia. States that it has become more bothersome and would like it looked at. Please advise. documented in this encounterMercy Health St. [facility]09-08-2022 Miscellaneous Notes* Telephone Encounter - Placido Reddy LPN - 04/03/2022 12:14 PM EDT TC to pt, left detailed message on secure identified voicemail. Pt only to return call to office /cany questions or concerns. Placido Reddy LPN * Telephone Encounter - Destiny Auguste APRN.CNP - 04/03/2022 12:06 PM EDT Can please let patient know that I received his lab results. His blood count continues to rise. Please continue increasing the iron rich foods in his diet or start an iron supplement. Destiny Auguste APRN.GILDA documented in this encounterMercy Health St. [facility]06-20-2022 Miscellaneous Notes* Telephone Encounter - Placido Reddy LPN - 01/13/2022 10:08 AM EDT TC to pt, left detailed message with results/provider instructions on secure identified voicemail. Pt only to return call to office /c any questions or concerns. Placido Reddy LPN * Telephone Encounter - Destiny Auguste APRN.CNP - 01/10/2022 5:07 PM EDT Can please let patient know that his blood count is improving. The stool sample was negative for any hidden blood. Please try to increase the iron-rich foods in his diet or start an OTC iron supplement daily. Please repeat labs in 2 weeks. documented in this encounterMer[facility]. [facility]06-13-2022 Miscellaneous Notes* Telephone Encounter - Destiny Auguste APRN.CNP - 01/06/2022 1:04 PM EDT Order placed. Destiny Auguste APRN.CNP * Telephone Encounter - Placido Reddy LPN - 01/06/2022 1:01 PM EDT Pt into office to cigar packer and picker IFOBT kit. Current order is not accessible. Please file new order. * Telephone Encounter - Mercedez Wiley LPN - 01/06/2022 9:31 AM EDT Pt returned call & was notified of results & instructions. Pt states understanding & will get labs today or tomorrow. Pt is taking asa 81mg twice daily. Pt states he is not having any dizziness, SOB, palpitations or CP. He was instructed to go to ED ifhe develops these sx. Mercedez Wiley LPN * Telephone Encounter - Srinivasa Zhao LPN - 01/03/2022 12:57 PM EDT Left message on pt's home phone to call and speak with a Triage Nurse regarding results and instructions. Was not able to leave message on cell as no answer and vm is full. Copy of labs faxed to Dr Jordan's office. Srinivasa Zhao LPN * Telephone Encounter - Destiny Auguste APRN.GILDA - 01/03/2022 12:14 PM EDT Can please let patient know that we received his lab results. His labwork shows that he is anemic. Is he still on any blood thinners or ASA since he has had surgery? Any signs of bleeding? Any dizziness/SOB/palpiations/CP? If any of these, please go to the ER. He needs some additional labwork and a stool sample to look for hidden blood. The orders are in. Please get these done as soon as possible. It looks like in previous message, they wanted labs to also be sent to Dr. Jordan. Please fax, as requested? documented in this encounterMercy Health St. [facility]06-02-2022 Miscellaneous Notes* Telephone Encounter - Hortencia Phan Ma - 12/26/2021 2:09 PM EDT notified * Telephone Encounter - Abe Gilmore MD - 12/26/2021 1:44 PM EDT ordered * Telephone Encounter - Sherley Dodson RN - 12/26/2021 1:23 PM EDT Patient's spouse Martha gonzalez and states patient's orthopedic surgeon, Dr. Jordan, is requesting patient's provider order a CBC and BMP for patient, if agreeable. Patient would like to get them drawn next week and the results to go to Dr. Jordan. Please contact with update of order placement. Thank you. documented in this encounterMercy Health St. [facility]05-27-2022 Miscellaneous Notes* Telephone Encounter - Sarah Rojas RN - 12/20/2021 7:58 AM EDT Received fax for Cardiac Risk Assessment from [facility] for Revision of Right Total Hip Arthroplasty. Forms given to Dr. Young for review. documented in this encounterMercy Health St. [facility]05-26-2022 Miscellaneous Notes* Telephone Encounter - Hortencia Phan Ma - 12/19/2021 5:37 PM EDT faxed * Telephone Encounter - Abe Gilmore MD - 12/19/2021 3:40 PM EDT done * Telephone Encounter - Cassdiy Lee LPN - 12/19/2021 3:29 PM EDT Placed on providers desk for review. * Telephone Encounter - Abe Gilmore MD - 12/19/2021 2:58 PM EDT Can we locate form * Telephone Encounter - Placido Reddy LPN - 12/19/2021 2:01 PM EDT TC to Andria, notified of provider response. Andria states she left a message with Cardiology but hasnot heard back from them yet. Also, Andria states when form is received could PCP please sign and fax it back. Placido Reddy LPN * Telephone Encounter - Abe Gilmore MD - 12/19/2021 1:56 PM EDT I have not seen form. Ok with me if ok with cardiology * Telephone Encounter - Iva Merida RN - 12/19/2021 1:25 PM EDT Andria- Dr. Jordan office [facility]- reports Dr. Jordan wants to do a total hip replacement, tomorrow afternoon, at [facility], on patient, for dislocated hip. Faxed form to Dr. Gilmore 15 min ago. Reports since patient has an enlarged aorta, asking if Dr. Gilmore will be able to clear patient for surgery. Andria will call egg processing supervisor also. Please phone Andria with reply sudeep: [phone] documented in [address] encounterMer[address] [facility]05-24-2022 Miscellaneous Notes* Telephone Encounter - Lexis Jackson RN - 12/17/2021 3:32 PM EDT Micaela from [facility] called and asked for Pts most recent labs to be faxed over. Faxed to [phone]. documented in this encounterMercy Health St. [facility]04-26-2022 History of Present illness Narrative* Gerson Young DO - 11/19/2021 11:22 AM EDT Images from the original note were not included. [facility] V[facility] [address] Department of Cardiovascular Medicine SECTION OF REGIONAL CARDIOLOGY ARON: 05/21/2021 HPI: Zion Marsh is a 76 year old male with history of hypertension, hyperlipidemia, moderate CAD, obstructive sleep apnea on sleep apnea and diabetes mellitus who was lost to follow up and is here today for follow up of dizziness/lightheadedness, and syncope/near syncope. 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 The patient is involved in sporadic irregular exercise Patient is currently asymptomatic. Patient denies SOB, chest pain, dizziness, lightheadedness, palpitations, lower extremity edema, PND, orthopnea, presyncope, syncope or claudication symptoms. Prior Hx: 11/12/20 He was last seen for preoperative cardiovascular examination pending carpal tunnel surgery and thiswent well. He had an episode of syncope while on a ladder putting up lights 06/23/19. It was around noon and he was reaching up and feels he passed out. He fell and had some head trauma then went to ED. He had an unremarkable echo other than mild aortic root dilation at 4 cm. He has not had any issues since then. He had a LHC at [facility] due to abnormal stress echo for ischemia per Dr. Peña. The LHC showed moderate CAD. 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 Coronary artery disease Elevated BP 01/02/2011 Esophagitis, unspecified GENERAL OSTEOARTHROSIS 07/29/2007 GERD (gastroesophageal reflux disease) Heartburn gastritis Hypertension Impaired fasting glucose [place], old silent on EKG Mixed hyperlipidemia 07/21/2008 Personal history of colonic polyps Renal calculi Snoring Syncope 06/23/2019 Umbilical hernia 11/14/2009 PAST SURGICAL HISTORY Procedure Laterality Date APPENDECTOMY ARTHRP ACETBLR/PROX FEM PROSTC AGRFT/ALGRFT 07/02/09 right Hip replacement, total ARTHRP ACETBLR/PROX FEM PROSTC AGRFT/ALGRFT 08/27/09 left Hip replacement, total CARDIAC CATH 12/30/10 no stents COLONOSCOPY FLX DX W/COLLJ SPEC WHEN PFRMD 11-23-13 diverticulosis, repeat in 5 years COLONOSCOPY FLX DX W/COLLJ SPEC WHEN PFRMD 12/06/2018 Colonoscopy COLONOSCOPY W/BIOPSY SINGLE/MULTIPLE ?, 10/10/08 EGD TRANSORAL BIOPSY SINGLE/MULTIPLE 10/10/08 ESOPHAGOGASTRODUODENOSCOPY TRANSORAL DIAGNOSTIC 01/14/16 EGD INGUINAL HERNIA REPAIR HX right PAST SURGICAL HISTORY OF s basket retrieval kidney stones RECONSTRUCTION ROTATOR CUFF AVULSION CHRONIC 04/2011 right-workers comp ROTATOR CUFF REPAIR 2011 left, [place] SALIVARY SURG UNLISTED PROC ? 1970s ? Mass removed from right cheek FAMILY HISTORY Problem Relation Age of Onset Heart Mother [place] Heart Brother Cancer Brother bone None Father unknown Heart Brother 45 [place] SOCIAL HISTORY Social History Tobacco Use Smoking status: Never Smoker Smokeless tobacco: Never Used Substance Use Topics Alcohol use: No Drug use: No ALLERGIES: Patient has no known allergies. CURRENT MEDICATIONS: Current Outpatient Medications Medication Sig atorvastatin (LIPITOR) 40 mg tablet Take 1 tablet by mouth daily at bedtime. doxazosin (CARDURA) 4 mg tablet Take 1 tablet by mouth once daily. venlafaxine ER (EFFEXOR XR) 150 mg 24 hr capsule Take 1 capsule by mouth once daily. losartan (COZAAR) 50 mg tablet Take 1 tablet by mouth once daily. omeprazole (PRILOSEC) 20 mg capsule TAKE 2 CAPSULES BY MOUTH DAILY BEFORE BREAKFAST. tramadol HCl (TRAMADOL ORAL) Take 50 mg by mouth four times daily. gabapentin (NEURONTIN) 100 mg capsule Take 100 mg by mouth daily at bedtime. finasteride (PROSCAR) 5 mg tablet Take 1 tablet by mouth once daily. tiZANidine (ZANAFLEX) 4 mg tablet Take 1 tablet by mouth every 8 hours as needed. sildenafil (VIAGRA) 100 mg tablet Take 1 tablet by mouth. TAKE 30-60 MINUTES BEFORE SEXUAL INTERCOURSE NEEDED. Do not exceed 100 mg in 24 hours aspirin, enteric coated (ECOTRIN LOW STRENGTH) 81 mg ORAL EC tablet Take 1 tablet by mouth once daily. Current Facility-Administered Medications Medication Dose Route Frequency perflutren lipid microspheres 1.3 mL in NaCl (PF) 0.9% 10 mL injection (DEFINITY) INTRAVENOUS DIRECTED PRN sodium chloride 0.9 % (flush) 10 mL (BD POSIFLUSH) 10 mL INTRAVENOUS DIRECTED PRN ROS: Card: See present history. Pulm: Negative for cough, hemoptysis, wheezing, COPD, dyspnea or shortness of breath Gastro: No nausea, vomiting, or diarrhea GenUr: No history of dysuria, frequency or incontinence Endo: Negative for cold or heat intolerance, polyuria or polydipsia. Neuro: no focal weakness, focal sensory loss, headache, visual changes, seizure activity, ataxia, speech/language loss. Musculoskeletal: Negative for joint or muscle pain, back pain, or swelling. Infect: no fevers, chills, rigors or night sweats. Skin: Negative for lesions, rash, and itching. Heme: Negative for prolonged bleeding, bruising easily or swollen nodes. The remainder of the review of systems is negative. PHYSICAL EXAMINATION: GENERAL: alert cooperative, pleasant oriented x 3 (self, time and place) in no acute distress overweight BP 144/60 Pulse 64 Ht 180.3 cm (5' 11) Wt 106.3 kg (234 lb 6.4 oz) SpO2 97% BMI 32.69 kg/m Last 3 Encounter BP Readings: Date: BP: 09/16/2019 128/60 07/12/2019 136/64 06/23/2019 125/54 Last 3 Encounter Pulse Readings: Date: Pulse: 09/16/2019 69 07/12/2019 64 06/23/2019 59 Last 3 Encounter Wt Readings: Date: Wt: 09/16/2019 104.6 kg (230 lb 11.2 oz) 07/12/2019 104.2 kg (229 lb 12.8 oz) 06/23/2019 101 kg (222 lb 10.6 oz) SKIN: warm, dry, no rash. NECK: supple, no palpable masses, no JVD, carotids well felt, no bruits. CARDIAC: [place] palpable in the 5th intercostal space mid clavicular line, normal S1 and S2, no murmurs, gallops, or rubs. CHEST: Normal respiratory efforts, lungs clear to auscultation bilaterally. ABDOMEN: Soft, no tenderness, rigidity, or masses. No palpable liver or spleen. Normal bowel sounds, no bruits. NEURO: intact cranial nerves II through XII, no motor or sensory deficits in all 4 extremities. EXTREMITIES: No cyanosis, clubbing, or edema. Peripheral pulses well felt. CARDIAC (& OTHER IMPORTANT) TESTING: The following testing (including images and tracings) were personally reviewed by myself: Echo 11/27/20 CONCLUSIONS: - Exam indication: CAD - The left ventricle is normal in size. There is mild left ventricular hypertrophy. Left ventricular systolic function is normal. EF = 64 5% (2D 4-ch.) Grade I left ventricular diastolic dysfunction. GLS= -18.5% Normal. - The right ventricle is normal in size. Right ventricular systolic function is normal. - The left atrial cavity is mildly dilated. - The visualized aorta is borderline dilated with a maximal dimension of 3.9 cm. - Mild (1+) AI. - Exam was compared with the prior CC echocardiographic exam performed on 06/29/2019. There is no significant change. Echo 06/29/19: CONCLUSIONS: - Exam indication: Syncope - The left ventricle is normal in size. Left ventricular systolic function is normal. EF = 59 5% (2D biplane) Grade I left ventricular diastolic dysfunction. - The right ventricle is normal in size. Right ventricular systolic function is normal. - There are no significant valvular abnormalities. - The visualized aorta is borderline dilated with a maximal dimension of 4.0 cm. - Exam was compared with the prior CC echocardiographic exam performed on 07/23/2015 (Stress). No significant change noted. [facility] 2011: Summar 65 yo M here for left heart catheterization after a abnormal stress echocardiogram. Today's coronary angiography reveals: - Left Main Trunk (LM): large caliber vessel, angiographically normal. Bifurcates into the Left anterior Descending (LAD) and circumflex (LCx) arteries. - LAD: large caliber vessel. Minimal luminal irregularities. The first diagonal has a 50% prox lesion. The LAD extends and wraps around the apex. - LCx: large caliber vessel. Mild luminal diseasel. - Ramus Intermedius- 40% proximal liesion - Right Coronary Artery (RCA): large caliber vessel, dominant. 30% proximal lesion. The right PDA has a 50% lesion proximal and has mild diffuse disease No gradient across aortic valve upon catheter pullback LV gram: normal EF. No wall motion abnormalities. No mitral regurgitation. Recommendations: Medical Management Aggressive risk factor modification, including treatment of hyperlipidemia Recommendations Disposition: cardiac medical treatment. Patient: [id number] [facility] Staff: ROMAN DESHPANDE DO LABS: Cholesterol, Total (mg/dL) Date Value 10/07/2021 134 09/17/2020 139 HDL Cholesterol (mg/dL) Date Value 10/07/2021 43 09/17/2020 44 LDL Cholesterol (mg/dL) Date Value 10/07/2021 67 09/17/2020 70 Triglyceride (mg/dL) Date Value 10/07/2021 118 09/17/2020 123 ASSESSMENT/PLAN: Coronary artery disease involving [place] heart without angina pectoris, unspecified vessel or lesion type Moderate disease 2010 [facility] Possible false positive stress echo prior to cath Syncope, unspecified syncope type 05/2019 without recurrence Staying off ladders Enlarged thoracic aorta 4 cm per last echocardiogram Repeat echo was 3.9 cm 11/27/2020 Recheck echo He should continue aggressive risk factor modifications with blood pressure and cholesterol both ator near target at home. He could do better with routine exercise we discussed this in detail. We did check an echo for Ao dilation which remains very mild and he is due for another. I will continue to follow him up periodically. Thank you for allowing me the privilege of participating in the care of your patient. Please do nothesitate to contact me if there are any questions. Gerson Young DO, FACC, FCCP, FACOI CC: Abe Gilmore MD [address] [place] [address] documented in [facility] History of Present illness Narrative* Abe Gilmore MD - 10/23/2021 10:02 AM EDT Patient presents with: F/U 6 months HPI: Patient presents today for office visit for follow up. Has recently seen cardiology and urology. Arthritis continues to bother him. Still seeing Dr. Danielle for his pain issues. Reviewed labs. Overall doing well. No chest pain or dyspnea. No edema. No myalgias. Moods are good. Sleeping well. No suicidal thoughts. No heartburn. Discussed diet. See previous ov on 04/25/21 HTN: Patient is compliant with meds Yes Denies side effects: Yes. Chest pain: No. Dyspnea: No. Edema: No. Palpitations: No. Syncope: No. Dizziness: Yes. HYPERLIPIDEMIA: Patient is taking medications: Yes. Patient denies myalgias: Yes. Patient denies gi upset: Yes PSYCH:emotionally is doing well. GERD:no heartburn. CARDIO:seeing cardiology JOSE:using cpap. Feels it is working. BPH: no increased nocturia or changes in the stream. Sees Dr. Guidry. Rheum still seeing Dr. Jain. Continues to write his pain pills and neurontin. Component Latest Ref Rng & Units 10/07/2021 WBC 3.70 - 11.00 k/uL 5.57 RBC 4.20 - 6.00 m/uL 4.59 Hemoglobin 13.0 - 17.0 g/dL 13.5 Hematocrit 39.0 - 51.0 % 42.3 MCV 80.0 - 100.0 fL 92.2 MCH 26.0 - 34.0 pg 29.4 MCHC 30.5 - 36.0 g/dL 31.9 RDW-CV 11.5 - 15.0 % 12.7 Platelet Count 150 - 400 k/uL 177 MPV 9.0 - 12.7 fL 10.2 Neut% % 53.7 Abs Neut (ANC) 1.45 - 7.50 k/uL 2.99 Lymph% % 32.5 Abs Lymph 1.00 - 4.00 k/uL 1.81 [place]% % 6.8 Abs [place] <0.87 k/uL 0.38 Eosin% % 5.7 Abs Eosin <0.46 k/uL 0.32 Baso% % 1.1 Abs Baso <0.11 k/uL 0.06 Immature Gran % % 0.2 IMMATURE GRANS (ABS) <0.10 k/uL <0.03 NRBC /100 WBC 0.0 Absolute nRBC <0.01 k/uL <0.01 DTYPE Auto Protein, Total 6.3 - 8.0 g/dL 7.0 Albumin 3.9 - 4.9 g/dL 4.2 Calcium 8.5 - 10.2 mg/dL 9.2 Bilirubin, Total 0.2 - 1.3 mg/dL 0.4 Alkaline Phosphatase 38 - 113 U/L 71 AST 14 - 40 U/L 24 ALT 10 - 54 U/L 23 Glucose 74 - 99 mg/dL 106 (H) BUN 9 - 24 mg/dL 12 Creatinine 0.73 - 1.22 mg/dL 1.02 Sodium 136 - 144 mmol/L 141 Potassium 3.7 - 5.1 mmol/L 4.2 Chloride 97 - 105 mmol/L 104 CO2 22 - 30 mmol/L 29 Anion Gap 9 - 18 mmol/L 8 (L) eGFR >=60 mL/min/1.73m 76 Cholesterol, Total <200 mg/dL 134 Triglyceride <150 mg/dL 118 HDL Cholesterol >39 mg/dL 43 Non HDL Cholesterol <130 mg/dL 91 Fasting Time hrs 8 VLDL Cholesterol <30 mg/dL 24 TC:HDL Ratio <5.10 3.12 LDL Cholesterol <100 mg/dL 67 LDL:HDL Ratio <2.54 1.56 Hemoglobin A1C 4.3 - 5.6 % 6.1 (H) Estimated Average Glucose mg/dL 128 Vitamin D 25 Hydroxy 31.0 - 80.0 ng/mL 29.9 (L) Echo 11/27/20 CONCLUSIONS: - Exam indication: CAD - The left ventricle is normal in size. There is mild left ventricular hypertrophy. Left ventricular systolic function is normal. EF = 64 5% (2D 4-ch.) Grade I left ventricular diastolic dysfunction. GLS= -18.5% Normal. - The right ventricle is normal in size. Right ventricular systolic function is normal. - The left atrial cavity is mildly dilated. - The visualized aorta is borderline dilated with a maximal dimension of 3.9 cm. - Mild (1+) AI. - Exam was compared with the prior echocardiographic exam performed on 06/29/2019. There is no significant change MEDICATIONS: Current Outpatient Medications Medication Sig atorvastatin (LIPITOR) 40 mg tablet Take 1 tablet by mouth daily at bedtime. doxazosin (CARDURA) 4 mg tablet Take 1 tablet by mouth once daily. venlafaxine ER (EFFEXOR XR) 150 mg 24 hr capsule Take 1 capsule by mouth once daily. losartan (COZAAR) 50 mg tablet Take 1 tablet by mouth once daily. omeprazole (PRILOSEC) 20 mg capsule TAKE 2 CAPSULES BY MOUTH DAILY BEFORE BREAKFAST. tramadol HCl (TRAMADOL ORAL) Take 50 mg by mouth four times daily. gabapentin (NEURONTIN) 100 mg capsule Take 100 mg by mouth daily at bedtime. finasteride (PROSCAR) 5 mg tablet Take 1 tablet by mouth once daily. tiZANidine (ZANAFLEX) 4 mg tablet Take 1 tablet by mouth every 8 hours as needed. sildenafil (VIAGRA) 100 mg tablet Take 1 tablet by mouth. TAKE 30-60 MINUTES BEFORE SEXUAL INTERCOURSE NEEDED. Do not exceed 100 mg in 24 hours aspirin, enteric coated (ECOTRIN LOW STRENGTH) 81 mg ORAL EC tablet Take 1 tablet by mouth once daily. Current Facility-Administered Medications Medication Dose Route Frequency perflutren lipid microspheres 1.3 mL in NaCl (PF) 0.9% 10 mL injection (DEFINITY) INTRAVENOUS DIRECTED PRN sodium chloride 0.9 % (flush) 10 mL (BD POSIFLUSH) 10 mL INTRAVENOUS DIRECTED PRN 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 Coronary artery disease Elevated BP 01/02/2011 Esophagitis, unspecified GENERAL OSTEOARTHROSIS 07/29/2007 GERD (gastroesophageal reflux disease) Heartburn gastritis Hypertension Impaired fasting glucose [place], old silent on EKG Mixed hyperlipidemia 07/21/2008 Personal history of colonic polyps Renal calculi Snoring Syncope 06/23/2019 Umbilical hernia 11/14/2009 PAST SURGICAL HISTORY Procedure Laterality Date APPENDECTOMY CARDIAC CATH 12/30/10 no stents COLONOSCOP W/ OR W/O [facility] SPEC 11-23-13 diverticulosis, repeat in 5 years COLONOSCOP W/ OR W/O [facility] SPEC 12/06/2018 Colonoscopy COLONOSCOPY W/BX ?, 10/10/08 EGD W/O [facility] SPECIMEN W/BX 10/10/08 EGD W/O OR W/BRUSH/WASH 01/14/16 EGD INGUINAL HERNIA REPAIR HX right PAST SURGICAL HISTORY OF basket retrieval kidney stones REPAIR COMPL ROTATOR CUFF AVULSN,CHR 04/2011 right-workers comp ROTATOR CUFF REPAIR 2011 left, [place] SALIVARY SURG UNLISTED PROC ? 1970s ? Mass removed from right cheek TOTAL HIP REPLACEMENT 07/02/09 right Hip replacement, total TOTAL HIP REPLACEMENT 08/27/09 left Hip replacement, total FAMILY HISTORY Problem Relation Age of Onset Heart Mother [place] Heart Brother Cancer Brother bone None Father unknown Heart Brother 45 [place] Social History Tobacco Use Smoking status: Never Smoker Smokeless tobacco: Never Used Substance Use Topics Alcohol use: No Drug use: No Reviewed current medications, allergies, past medical history, surgical history, family history andsocial history today. REVIEW OF SYSTEMS GI: Negative for change in bowel habit : Negative All other reviewed and negative other than HPI. HEALTH MAINTENANCE: Reviewed health maintenance issues today and recommended the following in detail. HEPATITIS C SCREENING Never done ADVANCE DIRECTIVE DISCUSSION -has living will. VITALS: BP 134/66 Pulse 62 Resp 14 Wt 108.4 kg (239 lb) BMI 33.33 kg/m Last 4 Encounter Wt Readings: Date: Wt: 10/23/2021 108.4 kg (239 lb) 05/21/2021 105.6 kg (232 lb 12.8 oz) 04/25/2021 103.9 kg (229 lb) 11/12/2020 106.2 kg (234 lb 1.6 oz) PHYSICAL EXAMINATION: General appearance: Well appearing, alert, in no acute distress, well-hydrated, well nourished. Skin: Skin color, texture, turgor normal, no suspicious rashes or lesions Head: Normocephalic, no masses, lesions, tenderness or abnormalities Neck: Supple, no adenopathy; thyroid symmetric, normal size, no bruits Lungs: Lungs clear to auscultation. No wheezing, rhonchi, rales Heart: RRR without murmur, gallop, or rubs. No ectopy Abdomen: Normal abdominal exam, Abdomen soft, non-tender. Bowel sounds normal. No masses, organomegaly Extremities: No deformities, edema, skin discoloration, clubbing or cyanosis. Good capillary refill. Musculoskeletal: No joint swelling, deformity, or tenderness Peripheral pulses: Normal Neuro: Negative. ASSESSMENT/PLAN: 1. Enlarged thoracic aorta (HCC) - ICD9: 447.8, ICD10: I77.89 (primary diagnosis) - will continue to monitor. 2. Essential hypertension - ICD9: 401.9, ICD10: I10 - good control - Continue current medication(s) - DOXAZOSIN 4 MG TABLET 3. BPH with urinary obstruction - ICD9: 600.01, 599.69, ICD10: N40.1, N13.8 - doing well. - DOXAZOSIN 4 MG TABLET 4. JOSE (obstructive sleep apnea) - ICD9: 327.23, ICD10: G47.33 - using cpap. Is helping. 5. Gastroesophageal reflux disease without esophagitis - ICD9: 530.81, ICD10: K21.9 - doing well. 6. Coronary artery disease involving [place] heart without angina pectoris, unspecified vessel or lesion type - ICD9: 414.01, ICD10: I25.10 - call if any issues. 7. Dysmetabolic syndrome - ICD9: 277.7, ICD10: E88.81 - watch diet. 8. Mixed hyperlipidemia - ICD9: 272.2, ICD10: E78.2 - good control - Continue current medication. 9. Advance directive discussed with patient - ICD9: V65.49, ICD10: Z71.89 - done 10. Hyperglycemia - ICD9: 790.29, ICD10: R73.9 - HGB A1C 11. Need for hepatitis C screening test - ICD9: V73.89, ICD10: Z11.59 - HEP C AB IA W/CONF SCRN Abe Gilmore RTO in six months and prn. documented in this encounter[facility] History of Present illness Narrative* Rosanne Donis (Rt), [facility] - 09/17/2020 8:20 AM EST Radiology Service Progress Note PATIENT NAME: Zion Marsh DATE OF SERVICE: September 17, 2020 TIME: 8:22 AM PATIENT IDENTITY VERIFICATION COMPLETED USING TWO (2) IDENTIFIERS: Name and Date of confirmedby patient verbally. FALL SCREENING: Has the patient had 2 falls in the last year or 1 fall with injury or currently using an Ambulatory Assistive Device (Walker, Cane, Wheelchair, Crutches, etc.)? No PATIENT GENDER DATA: Male PATIENT RELEVANT IMPLANT DATA REVIEWED: Not Applicable RADIOLOGY DEPARTMENT: General X-ray: Exam(s) Completed: Chest X-Ray PERIPHERAL IV DATA: Not applicable SIGNED BY: RT Sulaiman September 17, 2020 8:22 AM documented in this encounterMer[facility]11[facility]28[facility] History of Past illness Narrative* Problem Noted Date Resolved Date Traumatic rectus hematoma 06/23/20192021 Fall from ladder 06/23/2019 06/23/2019 Closed head injury 06/23/2019 04/25/2021 Syncope 06/23/2019 04/25/2021 Pneumonia of right lower lobe due to infectious organism 10/07/2018 01/17/2019 Erectile dysfunction 04/04/2015 04/25/2021 Kidney stones 01/25/2015 10/23/2021 BPH (benign prostatic hyperplasia) 01/25/2015 10/23/2021 Overview: Seeing Dr. Guidry. Left flank pain 01/25/2015 04/04/2016 Elevated PSA 01/25/2015 04/25/2021 Elevated BP 01/02/2011 10/23/2021 Right shoulder pain 11/29/2010 09/15/2020 Routine physical examination 11/14/200904/2016 ED (erectile dysfunction) 11/14/20092020 Heartburn 10/10/2008 04/04/2016 Dyspepsia and other specifie d disorders of function of stomach 10/10/2008 04/04/2016 Personal history of colonic polyps 10/10/2008 04/04/2016 Hypertrophy of prostate with out urinary obstruction and other lower urinary tract symptoms (LUTS) 07/10/2006 01/02/2011 Renal calculi 10/23/2021 documented as of this encounter (statuses as of 10/23/2021) [facility] History of Past illness Narrative* Problem Noted Date Resolved Date Traumatic rectus hematoma 06/23/20192021 Fall from ladder 06/23/2019 06/23/2019 Closed head injury 06/23/2019 04/25/2021 Syncope 06/23/2019 04/25/2021 Pneumonia of right lower lobe due to infectious organism 10/07/2018 01/17/2019 Erectile dysfunction 04/04/2015 04/25/2021 Kidney stones 01/25/2015 10/23/2021 BPH (benign prostatic hyperplasia) 01/25/2015 10/23/2021 Overview: Seeing Dr. Guidry. Left flank pain 01/25/2015 04/04/2016 Elevated PSA 01/25/2015 04/25/2021 Elevated BP 01/02/2011 10/23/2021 Right shoulder pain 11/29/2010 09/15/2020 Routine physical examination 11/14/200904/2016 ED (erectile dysfunction) 11/14/20092020 Heartburn 10/10/2008 04/04/2016 Dyspepsia and other specifie d disorders of function of stomach 10/10/2008 04/04/2016 Personal history of colonic polyps 10/10/2008 04/04/2016 Hypertrophy of prostate with out urinary obstruction and other lower urinary tract symptoms (LUTS) 07/10/2006 01/02/2011 Renal calculi 10/23/2021 documented as of this encounter (statuses as of 11/19/2021) [facility] History of Past illness Narrative* Problem Noted Date Resolved Date Traumatic rectus hematoma 06/23/20192021 Fall from ladder 06/23/2019 06/23/2019 Closed head injury 06/23/2019 04/25/2021 Syncope 06/23/2019 04/25/2021 Pneumonia of right lower lobe due to infectious organism 10/07/2018 01/17/2019 Erectile dysfunction 04/04/2015 04/25/2021 Kidney stones 01/25/2015 10/23/2021 BPH (benign prostatic hyperplasia) 01/25/2015 10/23/2021 Overview: Seeing Dr. Guidry. Left flank pain 01/25/2015 04/04/2016 Elevated PSA 01/25/2015 04/25/2021 Elevated BP 01/02/2011 10/23/2021 Right shoulder pain 11/29/2010 09/15/2020 Routine physical examination 11/14/200904/2016 ED (erectile dysfunction) 11/14/20092020 Heartburn 10/10/2008 04/04/2016 Dyspepsia and other specifie d disorders of function of stomach 10/10/2008 04/04/2016 Personal history of colonic polyps 10/10/2008 04/04/2016 Hypertrophy of prostate with out urinary obstruction and other lower urinary tract symptoms (LUTS) 07/10/2006 01/02/2011 Renal calculi 10/23/2021 documented as of this encounter (statuses as of 12/17/2021) [facility] History of Past illness Narrative* Problem Noted Date Resolved Date Traumatic rectus hematoma 06/23/20192021 Fall from ladder 06/23/2019 06/23/2019 Closed head injury 06/23/2019 04/25/2021 Syncope 06/23/2019 04/25/2021 Pneumonia of right lower lobe due to infectious organism 10/07/2018 01/17/2019 Erectile dysfunction 04/04/2015 04/25/2021 Kidney stones 01/25/2015 10/23/2021 BPH (benign prostatic hyperplasia) 01/25/2015 10/23/2021 Overview: Seeing Dr. Guidry. Left flank pain 01/25/2015 04/04/2016 Elevated PSA 01/25/2015 04/25/2021 Elevated BP 01/02/2011 10/23/2021 Right shoulder pain 11/29/2010 09/15/2020 Routine physical examination 11/14/200904/2016 ED (erectile dysfunction) 11/14/20092020 Heartburn 10/10/2008 04/04/2016 Dyspepsia and other specifie d disorders of function of stomach 10/10/2008 04/04/2016 Personal history of colonic polyps 10/10/2008 04/04/2016 Hypertrophy of prostate with out urinary obstruction and other lower urinary tract symptoms (LUTS) 07/10/2006 01/02/2011 Renal calculi 10/23/2021 documented as of this encounter (statuses as of 12/19/2021) [facility] History of Past illness Narrative* Problem Noted Date Resolved Date Traumatic rectus hematoma 06/23/20192021 Fall from ladder 06/23/2019 06/23/2019 Closed head injury 06/23/2019 04/25/2021 Syncope 06/23/2019 04/25/2021 Pneumonia of right lower lobe due to infectious organism 10/07/2018 01/17/2019 Erectile dysfunction 04/04/2015 04/25/2021 Kidney stones 01/25/2015 10/23/2021 BPH (benign prostatic hyperplasia) 01/25/2015 10/23/2021 Overview: Seeing Dr. Guidry. Left flank pain 01/25/2015 04/04/2016 Elevated PSA 01/25/2015 04/25/2021 Elevated BP 01/02/2011 10/23/2021 Right shoulder pain 11/29/2010 09/15/2020 Routine physical examination 11/14/200904/2016 ED (erectile dysfunction) 11/14/20092020 Heartburn 10/10/2008 04/04/2016 Dyspepsia and other specifie d disorders of function of stomach 10/10/2008 04/04/2016 Personal history of colonic polyps 10/10/2008 04/04/2016 Hypertrophy of prostate with out urinary obstruction and other lower urinary tract symptoms (LUTS) 07/10/2006 01/02/2011 Renal calculi 10/23/2021 documented as of this encounter (statuses as of 12/20/2021) [facility] of [facility] illness Narrative* Problem Noted Date Resolved Date Traumatic rectus hematoma 06/23/20192021 Fall from ladder 06/23/2019 06/23/2019 Closed head injury 06/23/2019 04/25/2021 Syncope 06/23/2019 04/25/2021 Pneumonia of right lower lobe due to infectious organism 10/07/2018 01/17/2019 Erectile dysfunction 04/04/2015 04/25/2021 Kidney stones 01/25/2015 10/23/2021 BPH (benign prostatic hyperplasia) 01/25/2015 10/23/2021 Overview: Seeing Dr. Guidry. Left flank pain 01/25/2015 04/04/2016 Elevated PSA 01/25/2015 04/25/2021 Elevated BP 01/02/2011 10/23/2021 Right shoulder pain 11/29/2010 09/15/2020 Routine physical examination 11/14/200904/2016 ED (erectile dysfunction) 11/14/20092020 Heartburn 10/10/2008 04/04/2016 Dyspepsia and other specifie d disorders of function of stomach 10/10/2008 04/04/2016 Personal history of colonic polyps 10/10/2008 04/04/2016 Hypertrophy of prostate with out urinary obstruction and other lower urinary tract symptoms (LUTS) 07/10/2006 01/02/2011 Renal calculi 10/23/2021 documented as of this encounter (statuses as of 12/26/2021) [facility] of [facility] illness Narrative* Problem Noted Date Resolved Date Traumatic rectus hematoma 06/23/20192021 Fall from ladder 06/23/2019 06/23/2019 Closed head injury 06/23/2019 04/25/2021 Syncope 06/23/2019 04/25/2021 Pneumonia of right lower lobe due to infectious organism 10/07/2018 01/17/2019 Erectile dysfunction 04/04/2015 04/25/2021 Kidney stones 01/25/2015 10/23/2021 BPH (benign prostatic hyperplasia) 01/25/2015 10/23/2021 Overview: Seeing Dr. Guidry. Left flank pain 01/25/2015 04/04/2016 Elevated PSA 01/25/2015 04/25/2021 Elevated BP 01/02/2011 10/23/2021 Right shoulder pain 11/29/2010 09/15/2020 Routine physical examination 11/14/200904/2016 ED (erectile dysfunction) 11/14/20092020 Heartburn 10/10/2008 04/04/2016 Dyspepsia and other specifie d disorders of function of stomach 10/10/2008 04/04/2016 Personal history of colonic polyps 10/10/2008 04/04/2016 Hypertrophy of prostate with out urinary obstruction and other lower urinary tract symptoms (LUTS) 07/10/2006 01/02/2011 Renal calculi 10/23/2021 documented as of this encounter (statuses as of 01/06/2022) [facility] of [facility] illness Narrative* Problem Noted Date Resolved Date Traumatic rectus hematoma 06/23/20192021 Fall from ladder 06/23/2019 06/23/2019 Closed head injury 06/23/2019 04/25/2021 Syncope 06/23/2019 04/25/2021 Pneumonia of right lower lobe due to infectious organism 10/07/2018 01/17/2019 Erectile dysfunction 04/04/2015 04/25/2021 Kidney stones 01/25/2015 10/23/2021 BPH (benign prostatic hyperplasia) 01/25/2015 10/23/2021 Overview: Seeing Dr. Guidry. Left flank pain 01/25/2015 04/04/2016 Elevated PSA 01/25/2015 04/25/2021 Elevated BP 01/02/2011 10/23/2021 Right shoulder pain 11/29/2010 09/15/2020 Routine physical examination 11/14/200904/2016 ED (erectile dysfunction) 11/14/20092020 Heartburn 10/10/2008 04/04/2016 Dyspepsia and other specifie d disorders of function of stomach 10/10/2008 04/04/2016 Personal history of colonic polyps 10/10/2008 04/04/2016 Hypertrophy of prostate with out urinary obstruction and other lower urinary tract symptoms (LUTS) 07/10/2006 01/02/2011 Renal calculi 10/23/2021 documented as of this encounter (statuses as of 01/13/2022) [facility]11-28-2019 History of Past illness Narrative* Problem Noted Date Resolved Date Traumatic rectus hematoma 06/23/20192021 Fall from ladder 06/23/2019 06/23/2019 Closed head injury 06/23/2019 04/25/2021 Syncope 06/23/2019 04/25/2021 Pneumonia of right lower lobe due to infectious organism 10/07/2018 01/17/2019 Erectile dysfunction 04/04/2015 04/25/2021 Kidney stones 01/25/2015 10/23/2021 BPH (benign prostatic hyperplasia) 01/25/2015 10/23/2021 Overview: Seeing Dr. Guidry. Left flank pain 01/25/2015 04/04/2016 Elevated PSA 01/25/2015 04/25/2021 Elevated BP 01/02/2011 10/23/2021 Right shoulder pain 11/29/2010 09/15/2020 Routine physical examination 11/14/200904/2016 ED (erectile dysfunction) 11/14/20092020 Heartburn 10/10/2008 04/04/2016 Dyspepsia and other specifie d disorders of function of stomach 10/10/2008 04/04/2016 Personal history of colonic polyps 10/10/2008 04/04/2016 Hypertrophy of prostate with out urinary obstruction and other lower urinary tract symptoms (LUTS) 07/10/2006 01/02/2011 Renal calculi 10/23/2021 documented as of this encounter (statuses as of 04/03/2022) [facility]11-28-2019 History of Past illness Narrative* Problem Noted Date Resolved Date Traumatic rectus hematoma 06/23/20192021 Fall from ladder 06/23/2019 06/23/2019 Closed head injury 06/23/2019 04/25/2021 Syncope 06/23/2019 04/25/2021 Pneumonia of right lower lobe due to infectious organism 10/07/2018 01/17/2019 Erectile dysfunction 04/04/2015 04/25/2021 Kidney stones 01/25/2015 10/23/2021 BPH (benign prostatic hyperplasia) 01/25/2015 10/23/2021 Overview: Seeing Dr. Guidry. Left flank pain 01/25/2015 04/04/2016 Elevated PSA 01/25/2015 04/25/2021 Elevated BP 01/02/2011 10/23/2021 Right shoulder pain 11/29/2010 09/15/2020 Routine physical examination 11/14/200904/2016 ED (erectile dysfunction) 11/14/20092020 Heartburn 10/10/2008 04/04/2016 Dyspepsia and other specifie d disorders of function of stomach 10/10/2008 04/04/2016 Personal history of colonic polyps 10/10/2008 04/04/2016 Hypertrophy of prostate with out urinary obstruction and other lower urinary tract symptoms (LUTS) 07/10/2006 01/02/2011 Renal calculi 10/23/2021 documented as of this encounter (statuses as of 04/16/2022) [facility]11-28-2019 History of Past illness Narrative* Problem Noted Date Resolved Date Traumatic rectus hematoma 06/23/20192021 Fall from ladder 06/23/2019 06/23/2019 Closed head injury 06/23/2019 04/25/2021 Syncope 06/23/2019 04/25/2021 Pneumonia of right lower lobe due to infectious organism 10/07/2018 01/17/2019 Erectile dysfunction 04/04/2015 04/25/2021 Kidney stones 01/25/2015 10/23/2021 BPH (benign prostatic hyperplasia) 01/25/2015 10/23/2021 Overview: Seeing Dr. Guidry. Left flank pain 01/25/2015 04/04/2016 Elevated PSA 01/25/2015 04/25/2021 Elevated BP 01/02/2011 10/23/2021 Right shoulder pain 11/29/2010 09/15/2020 Routine physical examination 11/14/200904/2016 ED (erectile dysfunction) 11/14/20092020 Heartburn 10/10/2008 04/04/2016 Dyspepsia and other specifie d disorders of function of stomach 10/10/2008 04/04/2016 Personal history of colonic polyps 10/10/2008 04/04/2016 Hypertrophy of prostate with out urinary obstruction and other lower urinary tract symptoms (LUTS) 07/10/2006 01/02/2011 Renal calculi 10/23/2021 documented as of this encounter (statuses as of 04/23/2022) [facility]11[facility] History of Past illness Narrative* Problem Noted Date Resolved Date Traumatic rectus hematoma 06/23/20192021 Fall from ladder 06/23/2019 06/23/2019 Closed head injury 06/23/2019 04/25/2021 Syncope 06/23/2019 04/25/2021 Pneumonia of right lower lobe due to infectious organism 10/07/2018 01/17/2019 Erectile dysfunction 04/04/2015 04/25/2021 Kidney stones 01/25/2015 10/23/2021 BPH (benign prostatic hyperplasia) 01/25/2015 10/23/2021 Overview: Seeing Dr. Guidry. Left flank pain 01/25/2015 04/04/2016 Elevated PSA 01/25/2015 04/25/2021 Elevated BP 01/02/2011 10/23/2021 Right shoulder pain 11/29/2010 09/15/2020 Routine physical examination 11/14/200904/2016 ED (erectile dysfunction) 11/14/20092020 Heartburn 10/10/2008 04/04/2016 Dyspepsia and other specifie d disorders of function of stomach 10/10/2008 04/04/2016 Personal history of colonic polyps 10/10/2008 04/04/2016 Hypertrophy of prostate with out urinary obstruction and other lower urinary tract symptoms (LUTS) 07/10/2006 01/02/2011 Renal calculi 10/23/2021 documented as of this encounter (statuses as of 04/29/2022) [facility]11-28-2019 History of Past illness Narrative* Problem Noted Date Resolved Date Traumatic rectus hematoma 06/23/20192021 Fall from ladder 06/23/2019 06/23/2019 Closed head injury 06/23/2019 04/25/2021 Syncope 06/23/2019 04/25/2021 Pneumonia of right lower lobe due to infectious organism 10/07/2018 01/17/2019 Erectile dysfunction 04/04/2015 04/25/2021 Kidney stones 01/25/2015 10/23/2021 BPH (benign prostatic hyperplasia) 01/25/2015 10/23/2021 Overview: Seeing Dr. Guidry. Left flank pain 01/25/2015 04/04/2016 Elevated PSA 01/25/2015 04/25/2021 Elevated BP 01/02/2011 10/23/2021 Right shoulder pain 11/29/2010 09/15/2020 Routine physical examination 11/14/200904/2016 ED (erectile dysfunction) 11/14/20092020 Heartburn 10/10/2008 04/04/2016 Dyspepsia and other specifie d disorders of function of stomach 10/10/2008 04/04/2016 Personal history of colonic polyps 10/10/2008 04/04/2016 Hypertrophy of prostate with out urinary obstruction and other lower urinary tract symptoms (LUTS) 07/10/2006 01/02/2011 Renal calculi 10/23/2021 documented as of this encounter (statuses as of 05/29/2022) [facility]11-[facility] History of Past illness Narrative* Problem Noted Date Resolved Date Traumatic rectus hematoma 06/23/20192021 Fall from ladder 06/23/2019 06/23/2019 Closed head injury 06/23/2019 04/25/2021 Syncope 06/23/2019 04/25/2021 Pneumonia of right lower lobe due to infectious organism 10/07/2018 01/17/2019 Erectile dysfunction 04/04/2015 04/25/2021 Kidney stones 01/25/2015 10/23/2021 BPH (benign prostatic hyperplasia) 01/25/2015 10/23/2021 Overview: Seeing Dr. Guidry. Left flank pain 01/25/2015 04/04/2016 Elevated PSA 01/25/2015 04/25/2021 Elevated BP 01/02/2011 10/23/2021 Right shoulder pain 11/29/2010 09/15/2020 Routine physical examination 11/14/200904/2016 ED (erectile dysfunction) 11/14/20092020 Heartburn 10/10/2008 04/04/2016 Dyspepsia and other specifie d disorders of function of stomach 10/10/2008 04/04/2016 Personal history of colonic polyps 10/10/2008 04/04/2016 Hypertrophy of prostate with out urinary obstruction and other lower urinary tract symptoms (LUTS) 07/10/2006 01/02/2011 Renal calculi 10/23/2021 documented as of this encounter (statuses as of 07/07/2022) [facility] History of Past illness Narrative* Problem Noted Date Resolved Date Traumatic rectus hematoma 06/23/20192021 Fall from ladder 06/23/2019 06/23/2019 Closed head injury 06/23/2019 04/25/2021 Syncope 06/23/2019 04/25/2021 Pneumonia of right lower lobe due to infectious organism 10/07/2018 01/17/2019 Erectile dysfunction 04/04/2015 04/25/2021 Kidney stones 01/25/2015 10/23/2021 BPH (benign prostatic hyperplasia) 01/25/2015 10/23/2021 Overview: Seeing Dr. Guidry. Left flank pain 01/25/2015 04/04/2016 Elevated PSA 01/25/2015 04/25/2021 Elevated BP 01/02/2011 10/23/2021 Right shoulder pain 11/29/2010 09/15/2020 Routine physical examination 11/14/200904/2016 ED (erectile dysfunction) 11/14/20092020 Heartburn 10/10/2008 04/04/2016 Dyspepsia and other specifie d disorders of function of stomach 10/10/2008 04/04/2016 Personal history of colonic polyps 10/10/2008 04/04/2016 Hypertrophy of prostate with out urinary obstruction and other lower urinary tract symptoms (LUTS) 07/10/2006 01/02/2011 Renal calculi 10/23/2021 documented as of this encounter (statuses as of 07/30/2022) [facility] History of Past illness Narrative* Problem Noted Date Resolved Date Traumatic rectus hematoma 06/23/20192021 Fall from ladder 06/23/2019 06/23/2019 Closed head injury 06/23/2019 04/25/2021 Syncope 06/23/2019 04/25/2021 Pneumonia of right lower lobe due to infectious organism 10/07/2018 01/17/2019 Erectile dysfunction 04/04/2015 04/25/2021 Kidney stones 01/25/2015 10/23/2021 BPH (benign prostatic hyperplasia) 01/25/2015 10/23/2021 Overview: Seeing Dr. Guidry. Left flank pain 01/25/2015 04/04/2016 Elevated PSA 01/25/2015 04/25/2021 Elevated BP 01/02/2011 10/23/2021 Right shoulder pain 11/29/2010 09/15/2020 Routine physical examination 11/14/200904/2016 ED (erectile dysfunction) 11/14/20092020 Heartburn 10/10/2008 04/04/2016 Dyspepsia and other specifie d disorders of function of stomach 10/10/2008 04/04/2016 Personal history of colonic polyps 10/10/2008 04/04/2016 Hypertrophy of prostate with out urinary obstruction and other lower urinary tract symptoms (LUTS) 07/10/2006 01/02/2011 Renal calculi 10/23/2021 documented as of this encounter (statuses as of 10/22/2022) [facility]11-[facility] History of Past illness Narrative* Problem Noted Date Resolved Date Traumatic rectus hematoma 06/23/20192021 Fall from ladder 06/23/2019 06/23/2019 Closed head injury 06/23/2019 04/25/2021 Syncope 06/23/2019 04/25/2021 Pneumonia of right lower lobe due to infectious organism 10/07/2018 01/17/2019 Erectile dysfunction 04/04/2015 04/25/2021 Kidney stones 01/25/2015 10/23/2021 BPH (benign prostatic hyperplasia) 01/25/2015 10/23/2021 Overview: Seeing Dr. Guidry. Left flank pain 01/25/2015 04/04/2016 Elevated PSA 01/25/2015 04/25/2021 Elevated BP 01/02/2011 10/23/2021 Right shoulder pain 11/29/2010 09/15/2020 Routine physical examination 11/14/200904/2016 ED (erectile dysfunction) 11/14/20092020 Heartburn 10/10/2008 04/04/2016 Dyspepsia and other specifie d disorders of function of stomach 10/10/2008 04/04/2016 Personal history of colonic polyps 10/10/2008 04/04/2016 Hypertrophy of prostate with out urinary obstruction and other lower urinary tract symptoms (LUTS) 07/10/2006 01/02/2011 Renal calculi 10/23/2021 documented as of this encounter (statuses as of 10/29/2022) [facility] History of Past illness Narrative* Problem Noted Date Diagnosed Date Resolved Date Traumatic rectus hematoma 06/23/2019 Fall from ladder 06/23/2019 06/23/2019 Closed head injury 06/23/2019 1 Syncope 06/23/2019 04/25/2021 Pneumonia of right lower lob e due to infectious organism 10/07/2018 01/17/2019 Erectile dysfunction 04/04/2015 021 Kidney stones 01/25/2015 10/23/2021 BPH (benign prostatic hyperplasia) 01/25/2015 10/23/2021 Overview: Seeing Dr. Guidry. Left flank pain 01/25/2015 04/04/2016 Elevated PSA 01/25/2015 04/25/2021 Elevated BP 01/02/2011 10/23/2021 Right shoulder pain 11/29/2010 09/15/19 21 Routine physical examination 11/14/2009 10/04/2015 ED (erectile dysfunction) 11/14/2009 Heartburn 10/10/2008 04/04/2016 Dyspepsia and other specifie d disorders of function of stomach 10/10/2008 04/04/2016 Personal history of colonic polyps 10/10/2008 04/04/2016 Hypertrophy of prostate with out urinary obstruction and other lower urinary tract symptoms (LUTS) 07/10/2006 01/02/2011 Renal calculi 10/23/2021 documented as of this encounter (statuses as of 04/04/2023) [facility] History of Past illness Narrative* Problem Noted Date Diagnosed Date Resolved Date Traumatic rectus hematoma 06/23/2019 Fall from ladder 06/23/2019 06/23/2019 Closed head injury 06/23/2019 Syncope 06/23/2019 04/25/2021 Pneumonia of right lower lob e due to infectious organism 10/07/2018 01/17/2019 Erectile dysfunction 04/04/2015 021 Kidney stones 01/25/2015 10/23/2021 BPH (benign prostatic hyperplasia) 01/25/2015 10/23/2021 Overview: Seeing Dr. Guidry. Left flank pain 01/25/2015 04/04/2016 Elevated PSA 01/25/2015 04/25/2021 Elevated BP 01/02/2011 10/23/2021 Right shoulder pain 11/29/2010 09/15/19 21 Routine physical examination 11/14/2009 10/04/2015 ED (erectile dysfunction) 11/14/2009 Heartburn 10/10/2008 04/04/2016 Dyspepsia and other specifie d disorders of function of stomach 10/10/2008 04/04/2016 Personal history of colonic polyps 10/10/2008 04/04/2016 Hypertrophy of prostate with out urinary obstruction and other lower urinary tract symptoms (LUTS) 07/10/2006 01/02/2011 Renal calculi 10/23/2021 documented as of this encounter (statuses as of 04/17/2023) [facility] History of Past illness Narrative* Problem Noted Date Diagnosed Date Resolved Date Traumatic rectus hematoma 06/23/2019 Fall from ladder 06/23/2019 06/23/2019 Closed head injury 06/23/2019 1 Syncope 06/23/2019 04/25/2021 Pneumonia of right lower lob e due to infectious organism 10/07/2018 01/17/2019 Erectile dysfunction 04/04/2015 021 Kidney stones 01/25/2015 10/23/2021 BPH (benign prostatic hyperplasia) 01/25/2015 10/23/2021 Overview: Seeing Dr. Guidry. Left flank pain 01/25/2015 04/04/2016 Elevated PSA 01/25/2015 04/25/2021 Elevated BP 01/02/2011 10/23/2021 Right shoulder pain 11/29/2010 09/15/19 Routine physical examination 11/14/2009 10/04/2015 ED (erectile dysfunction) 11/14/2009 Heartburn 10/10/2008 04/04/2016 Dyspepsia and other specifie d disorders of function of stomach 10/10/2008 04/04/2016 Personal history of colonic polyps 10/10/2008 04/04/2016 Hypertrophy of prostate with out urinary obstruction and other lower urinary tract symptoms (LUTS) 07/10/2006 01/02/2011 Renal calculi 10/23/2021 documented as of this encounter (statuses as of 04/24/2023) [facility] History of Past illness Narrative* Problem Noted Date Diagnosed Date Resolved Date Traumatic rectus hematoma 06/23/2019 Fall from ladder 06/23/2019 06/23/2019 Closed head injury 06/23/2019 1 Syncope 06/23/2019 04/25/2021 Pneumonia of right lower lob e due to infectious organism 10/07/2018 01/17/2019 Erectile dysfunction 04/04/2015 021 Kidney stones 01/25/2015 10/23/2021 BPH (benign prostatic hyperplasia) 01/25/2015 10/23/2021 Overview: Seeing Dr. Guidry. Left flank pain 01/25/2015 04/04/2016 Elevated PSA 01/25/2015 04/25/2021 Elevated BP 01/02/2011 10/23/2021 Right shoulder pain 11/29/2010 09/15/19 21 Routine physical examination 11/14/2009 10/04/2015 ED (erectile dysfunction) 11/14/2009 Heartburn 10/10/2008 04/04/2016 Dyspepsia and other specifie d disorders of function of stomach 10/10/2008 04/04/2016 Acute gastritis without mention of hemorrhage 10/11/19 09 05/19/2023 Personal history of colonic polyps 10/10/2008 04/04/2016 Hypertrophy of prostate with out urinary obstruction and other lower urinary tract symptoms (LUTS) 07/10/2006 01/02/2011 Renal calculi 10/23/2021 documented as of this encounter (statuses as of 05/19/2023) [facility] History of Past illness Narrative* Problem Noted Date Diagnosed Date Resolved Date Traumatic rectus hematoma 06/23/2019 Fall from ladder 06/23/2019 06/23/2019 Closed head injury 06/23/2019 Syncope 06/23/2019 04/25/2021 Pneumonia of right lower lob e due to infectious organism 10/07/2018 01/17/2019 Erectile dysfunction 04/04/2015 021 Kidney stones 01/25/2015 10/23/2021 BPH (benign prostatic hyperplasia) 01/25/2015 10/23/2021 Overview: Seeing Dr. Guidry. Left flank pain 01/25/2015 04/04/2016 Elevated PSA 01/25/2015 04/25/2021 Elevated BP 01/02/2011 10/23/2021 Right shoulder pain 11/29/2010 09/15/19 21 Routine physical examination 11/14/2009 10/04/2015 ED (erectile dysfunction) 11/14/2009 Heartburn 10/10/2008 04/04/2016 Dyspepsia and other specifie d disorders of function of stomach 10/10/2008 04/04/2016 Acute gastritis without mention of hemorrhage 10/11/19 09 05/19/2023 Personal history of colonic polyps 10/10/2008 04/04/2016 Hypertrophy of prostate with out urinary obstruction and other lower urinary tract symptoms (LUTS) 07/10/2006 01/02/2011 Renal calculi 10/23/2021 documented as of this encounter (statuses as of 06/30/2023) [facility] History of Past illness Narrative* Problem Noted Date Diagnosed Date Resolved Date Traumatic rectus hematoma 06/23/2019 Fall from ladder 06/23/2019 06/23/2019 Closed head injury 06/23/2019 1 Syncope 06/23/2019 04/25/2021 Pneumonia of right lower lob e due to infectious organism 10/07/2018 01/17/2019 Erectile dysfunction 04/04/2015 021 Kidney stones 01/25/2015 10/23/2021 BPH (benign prostatic hyperplasia) 01/25/2015 10/23/2021 Overview: Seeing Dr. Guidry. Left flank pain 01/25/2015 04/04/2016 Elevated PSA 01/25/2015 04/25/2021 Elevated BP 01/02/2011 10/23/2021 Right shoulder pain 11/29/2010 09/15/19 21 Routine physical examination 11/14/2009 10/04/2015 ED (erectile dysfunction) 11/14/2009 Heartburn 10/10/2008 04/04/2016 Dyspepsia and other specifie d disorders of function of stomach 10/10/2008 04/04/2016 Acute gastritis without mention of hemorrhage 10/11/19 09 05/19/2023 Personal history of colonic polyps 10/10/2008 04/04/2016 Hypertrophy of prostate with out urinary obstruction and other lower urinary tract symptoms (LUTS) 07/10/2006 01/02/2011 Renal calculi 10/23/2021 documented as of this encounter (statuses as of 11/11/2023) [facility] Author Aaron Kirby [facility] Note Date/Time December 14, 2024 12:[address] [facility] Medical Records Department [address] [place] [address] Anesthesia Postop Eval I 12/14/24 1147 MR#: [id number] Acct: [id number] Name: ZION MARSH #:[id number] : 1945 79 From: Aaron GALARZA PCP: Dr. 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 Abe Gilmore MD Status:ADM I N Discharge Instructions Diet Discharge Diet: No restrictions DC O2, CPAP, BIPAP needs Home O2 Discharge instructions: No Dressing / Incision Discharge Activity: Return to Normal Activity and May Not Drive (while taking narcotic pain medications.) Dressing / Incision Call your doctor if you observe: Fever of 101 or Higher Follow Up Care Please Follow Up With: Dennis Guidry MD When: Call [phone] for an appointment Test Results: Test results from this visit will be discussed in further detail at your follow- up appointment, if applicable. Discharge Plan Admission Admit Date/Time: 01/04/25 19:13 Attending Provider: Dennis Guidry Primary Care Provider: Abe Gilmore Discharge Orders/Prescriptions Prescriptions: No Action atorvastatin 40 MG tablet 40 mg PO QHS aspirin 81 MG tablet 81 mg PO QHS Patient Comments: [facility] tamsulosin 0.4 MG capsule 0.4 mg PO QHS finasteride 5 MG tablet 5 mg PO QHS Patient Comments: PROSTATE Cardura XL 4 MG tablet extended release 24hr 4 mg PO QHS multivitamin Tablet 1 tab PO DAILY losartan 50 mg tablet 50 mg PO DAILY gabapentin 100 mg capsule 200 mg PO QHS cholecalciferol (vitamin D3) [Vitamin D3] 25 mcg (1,000 unit) Capsule 25 mcg PO DAILY venlafaxine 150 mg capsule,extended release 24hr 150 mg PO DAILY Patient Comments: PT TAKES AT BEDTIME acetaminophen 500 mg capsule 1,000 mg PO Q4H PRN (Reason: pain) omeprazole 20 mg capsule,delayed release(DR/EC) 40 mg PO DAILY tramadol 50 mg tablet 50 mg PO 4X/DAY PRN (Reason: pain) ibuprofen 600 mg tablet 600 mg PO Q6H PRN (Reason: pain) Qty: 20 0RF levofloxacin 500 mg tablet 500 mg PO DAILY Qty: 7 0RF Referrals / Follow Up: Abe Gilmore MD [Primary Care Provider] - 01/04/251933<Electronically signed by Dennis Guidry MD>Dennis Guidry MD CC: Dr. Abe Gilmore MD ~ Signed [facility] Work Phone: Evaluation note* Diagnosis Enlarged thoracic aorta (HCC)- Primary Thoracic aortic ectasia Essential hypertension Unspecified essential hypertension BPH with urinary obstruction Hypertrophy of prostate with urinary obstruction and other lower urinary tract symptoms (LUTS) JOSE (obstructive sleep apnea) Obstructive sleep apnea (adult) (pediatric) Gastroesophageal reflux disease without esophagitis Esophageal reflux Coronary artery disease involving [place] heart without angina pectoris, unspecified vessel or lesion type Dysmetabolic syndrome Dysmetabolic Syndrome X Mixed hyperlipidemia Advance directive discussed with patient Other specified counseling Hyperglycemia Other abnormal glucose Need for hepatitis C screening test Special screening examination for other specified viral diseases [facility] this encounter [facility] Diagnosis Coronary artery disease involving [place] heart without angina pectoris, unspecified vessel or lesion type- Primary Enlarged thoracic aorta (HCC) Thoracic aortic ectasia Shortness of breath Syncope, unspecified syncope type documented in this encounter [facility] noteNo assessment information availableWKettering Health [facility] Work Phone: Evaluation note* Diagnosis Onset Date Resolution Status BPH (benign prostatic hyperplasia) acute History of revision of total replacement of right hip joint acute Obstructive sleep apnea acut e Hypertension [facility] Work Phone: Evaluation note* Diagnosis Essential hypertension- Primary Unspecified essential hypertension [facility] [place] [facility]* Diagnosis Anemia, unspecified type- Primary [facility]* Diagnosis Anemia, unspecified type- Primary [facility] [place] [facility]* Diagnosis Coronary artery disease involving [place] heart without angina pectoris, unspecified vessel or lesion type- Primary Encounter for immunization Need for other specified prophylactic vaccination against single bacterial disease Enlarged thoracic aorta (HCC) Thoracic aortic ectasia Essential hypertension Unspecified essential hypertension Mixed hyperlipidemia JOSE (obstructive sleep apnea) Obstructive sleep apnea (adult) (pediatric) Gastroesophageal reflux disease without esophagitis Esophageal reflux Umbilical hernia without obstruction and without gangrene BPH with urinary obstruction Hypertrophy of prostate with urinary obstruction and other lower urinary tract symptoms (LUTS) Adjustment disorder with depressed mood Iron deficiency anemia, unspecified iron deficiency anemia type documented [facility] this encounter [facility]* Diagnosis Essential hypertension Unspecified essential hypertension BPH with urinary obstruction Hypertrophy of prostate with urinary obstruction and other lower urinary tract symptoms (LUTS) documented in this encounter [facility] [place] [facility]* Diagnosis Gastroesophageal reflux disease without esophagitis Esophageal reflux [facility] [facility] [place] [facility] Diagnosis Ringworm- Primary Dermatophytosis of unspecified site [facility] Diagnosis Coronary artery disease involving [place] heart without angina pectoris, unspecified vessel or lesion type- Primary Enlarged thoracic aorta (HCC) Thoracic aortic ectasia Mixed hyperlipidemia Essential hypertension Unspecified essential hypertension JOSE (obstructive sleep apnea) Obstructive sleep apnea (adult) (pediatric) Gastroesophageal reflux disease without esophagitis Esophageal reflux BPH with urinary obstruction Hypertrophy of prostate with urinary obstruction and other lower urinary tract symptoms (LUTS) Dysmetabolic syndrome Dysmetabolic Syndrome X Adjustment disorder with depressed mood Primary osteoarthritis involving multiple joints Hyperglycemia Other abnormal glucose Vitamin D deficiency Unspecified vitamin D deficiency [facility] Diagnosis Essential hypertension Unspecified essential hypertension BPH with urinary obstruction Hypertrophy of prostate with urinary obstruction and other lower urinary tract symptoms (LUTS) documented [facility] Diagnosis Coronary artery disease involving [place] heart without angina pectoris, unspecified vessel or lesion type- Primary Essential hypertension Unspecified essential hypertension Gastroesophageal reflux disease without esophagitis Esophageal reflux Mixed hyperlipidemia Dysmetabolic syndrome Dysmetabolic Syndrome X Prediabetes Other abnormal glucose [facility] Diagnosis Essential hypertension- Primary Unspecified essential hypertension BPH with urinary obstruction Hypertrophy of prostate with urinary obstruction and other lower urinary tract symptoms (LUTS) Gastroesophageal reflux disease without esophagitis Esophageal reflux Encounter for immunization Need for other specified prophylactic vaccination against single bacterial disease Coronary artery disease involving [place] heart without angina pectoris, unspecified vessel or lesion type Enlarged thoracic aorta (HCC) Thoracic aortic ectasia Mixed hyperlipidemia JOSE (obstructive sleep apnea) Obstructive sleep apnea (adult) (pediatric) Dysmetabolic syndrome Dysmetabolic Syndrome X Adjustment disorder with depressed mood [facility] Diagnosis JOSE (obstructive sleep apnea)- Primary Obstructive sleep apnea (adult) (pediatric) Coronary artery disease involving [place] heart without angina pectoris, unspecified vessel or lesion type Mixed hyperlipidemia Enlarged thoracic aorta (HCC) Thoracic aortic ectasia Essential hypertension Unspecified essential hypertension Dysmetabolic syndrome Dysmetabolic Syndrome X BPH with urinary obstruction Hypertrophy of prostate with urinary obstruction and other lower urinary tract symptoms (LUTS) Hyperglycemia Other abnormal glucose documented [facility] Diagnosis Coronary artery disease involving [place] heart without angina pectoris, unspecified vessel or lesion type- Primary Syncope, unspecified syncope type Enlarged thoracic aorta (HCC) Thoracic aortic ectasia Essential hypertension Unspecified essential hypertension Mixed hyperlipidemia documented in [facility] Diagnosis Coronary artery disease involving [place] heart without angina pectoris, unspecified vessel or lesion type- Primary Syncope, unspecified syncope type Enlarged thoracic aorta (HCC) Thoracic aortic ectasia Essential hypertension Unspecified essential hypertension Mixed hyperlipidemia Shortness of breath JOSE (obstructive sleep apnea) Obstructive sleep apnea (adult) (pediatric) documented [facility]* Diagnosis Laceration of right knee, initial encounter- Primary documented [facility]* Diagnosis Essential hypertension- Primary Unspecified essential hypertension Mixed hyperlipidemia Coronary artery disease involving [place] heart without angina pectoris, unspecified vessel or lesion type Enlarged thoracic aorta (HCC) Thoracic aortic ectasia JOSE (obstructive sleep apnea) Obstructive sleep apnea (adult) (pediatric) Gastroesophageal reflux disease without esophagitis Esophageal reflux Dysmetabolic syndrome Dysmetabolic Syndrome X BPH with urinary obstruction Hypertrophy of prostate with urinary obstruction and other lower urinary tract symptoms (LUTS) Adjustment disorder with depressed mood Primary osteoarthritis involving multiple joints Obesity, Class I, BMI 30-34.9 Obesity, unspecified Prediabetes Other abnormal glucose Screening for depression Encounter for screening examination for other mental health and behavioral disorders Encounter for immunization Need for other specified prophylactic vaccination against single bacterial disease documented [facility]* Diagnosis Essential hypertension Unspecified essential hypertension BPH with urinary obstruction Hypertrophy of prostate with urinary obstruction and other lower urinary tract symptoms (LUTS) documented [facility] [place] [facility] Diagnosis Cough documented in [facility] [place] [facility]* Diagnosis Gastroesophageal reflux disease without esophagitis Esophageal reflux Essential hypertension Unspecified essential hypertension BPH with urinary obstruction Hypertrophy of prostate with urinary obstruction and other lower urinary tract symptoms (LUTS) [facility] Diagnosis Acute right-sided low back pain without sciatica- Primary Recurrent kidney stones Calculus of kidney [facility] [place] [facility]* Diagnosis Essential hypertension- Primary Unspecified essential hypertension Mixed hyperlipidemia Coronary artery disease involving [place] heart without angina pectoris, unspecified vessel or lesion type Enlarged thoracic aorta Thoracic aortic ectasia JOSE (obstructive sleep apnea) Obstructive sleep apnea (adult) (pediatric) Gastroesophageal reflux disease without esophagitis Esophageal reflux Medication monitoring encounter Encounter for therapeutic drug monitoring Hyperglycemia Other abnormal glucose [facility] Author Vickie Limon [facility] Note Date/Time October 26, 2024 4:26 pm [facility] Medical Records Department [address] [place] [address] H&P Exam - Surgical 10/26/24 1623 MR#: [id number] Acct: [id number] Name: ZION MARSH Rep #:[id number] : 1945 79 From: Vickie Limon MD PCP: Dr. Abe Gilmore MD Status:REG E R Location: ED HPI - General General Date of Admission: 10/26/24 HPI Narrative ZION MARSH, is a 79 M who presents due to umbilical hernia. Patient states hehas had this for 50 years. On Thursday he started noticed maybe a little bit bigger than usual also had not really been able to have a bowel movement. Patient was able to tolerate diet during this time. Patient did take some laxative last night was able to have a bowel movement today. However there is some color change at the umbilical hernia site which had him concerned so he came to the ER. ER physician was able to push some of the hernia back in but there is still some contents that were out. Unable to get a great story from patient if he has been able to push it back in or not sounds like he has been tried maybe for at least a year. Previous abdominal surgeries appendectomy and inguinal hernia surgery. [facility] Medical History Contact dermatitis due to poison [place] Hypertension History of MRSA infection Wears glasses Anxiety Uses wheelchair Arthritis Kidney stones High cholesterol Gastric reflux Non-smoker CPAP (continuous positive airway pressure) dependence Sleep apnea History of pain when walking History of stress test History of echocardiogram Cardiology follow-up encounter BPH (benign prostatic hyperplasia) Dyslipidemia Nephrolithiasis Coronary artery disease Home Medications ?Medication ?Instructions ?Recorded ?Last Taken ?Type Venlafaxine Xr [Effexor Xr] 150 mg PO QHS DEPRESSION 0 04/04/15 04/14/15 History aspirin 81 mg tablet,delayed 81 mg PO QHS BLOOD THINNE R 04/04/15 04/14/15 History release atorvastatin 40 mg tablet 40 mg PO QHS CHOLESTEROL 04/1004/14/15 History finasteride 5 mg tablet 5 mg PO QHS URINATION 04/14/15 History sildenafil 100 mg tablet (Viagra) 100 mg PO DAILY PRN PRN Not 04/04/15 Unknown History Specified tamsulosin 0.4 mg capsule 0.4 mg PO QHS URINATION 04/1004/14/15 History Omeprazole [Prilosec] 40 mg PO DAILY GERD 01/23/17 12/20/21 History doxazosin 4 mg tablet,extended 4 mg PO DAILY HEART 12/20/21 History release 24 hr (Cardura XL) cholecalciferol (vitamin D3) 25 25 mcg PO DAILY SUPPLE MENT 12/17/21 Unknown History mcg (1,000 unit) capsule (Vitamin D3) gabapentin 100 mg capsule 200 mg PO QHS PAIN 12/17/21 Unknown History losartan 50 mg tablet 50 mg PO DAILY BP 12/17/21 0 12/20/21 History multivitamin 1 tab PO DAILY SUPPLEMENT Unknown History zinc 50 mg tablet 50 mg PO DAILY SUPPLEMENT Unknown History acetaminophen 500 mg tablet 1,000 mg (2 x 500 mg) PO Q 8 #100 12/21/21 Unknown Rx tabs doxycycline monohydrate 100 mg 100 mg PO BID 13 days # 26 caps 12/21/21 Unknown Rx capsule ferrous sulfate 325 mg (65 mg 325 mg PO 1200,1700 14 d ays #28 12/21/21 Unknown Rx iron) tablet (FeroSul) tabs folic acid 1 mg tablet 1 mg PO BIDCM 14 days #28 ta bs 12/21/21 Unknown Rx oxycodone 5 mg tablet 5 - 10 mg (1 - 2 x 5 mg) PO Q4H 12/21/21 Unknown Rx PRN PRN Pain Score 4-10 5 days #42 tabs rivaroxaban 10 mg tablet (Xarelto) 10 mg PO DAILY@0600 #13 tabs 12/21/21 Unknown Rx sennosides 8.6 mg-docusate sodium 2 tab PO BID #20 tab s 12/21/21 Unknown Rx 50 mg tablet (Stool Softener-Stimulant Laxative) prednisone 10 mg tablet 10 mg PO DIRECTED #30 tab s 01/28/23 Unknown Rx Allergy/AdvReac Type Severity Reaction Status Date / Time No Known Allergies Allergy Verified 10/26/24 11:34 Surgical History Hx of bilateral cataract extraction Hx of hernia repair Hx of appendectomy History of carpal tunnel release of both wrists Hx of repair of right rotator cuff Hx of repair of left rotator cuff Hx of bilateral hip replacements Social History (Updated 10/26/24 @ 14:[address] Bill Gary MD) household members: spouse Smoking Status: Never smoker Vital Signs Vital Signs Vital Signs: 10/26/24 11:31 10/26/24 14:27 Temperature 98.2 F Temperature Source Oral Pulse Rate 73 56 L Respiratory Rate 17 16 Blood Pressure 102/76 162/73 H Blood Pressure Mean 84 102 Pulse Ox 100 99 Oxygen Delivery Method Room Air Room Air Weight Weight: 230 lb 4.8 oz Body Mass Index (BMI) 33.0 Physical Exam Const alert, oriented x3 and no apparent distress HEENT normocephalic and head/scalp atraumatic Resp normal respiratory effort Cardio regular rate GI soft to palpation; Negative for non-distended GI Narrative: Umbilical hernia, incarcerated, tender while trying to reduce otherwise nontender, slight erythema likely due to previous pressure to attempt to reduce Palpation: Negative for guarding Extremity no clubbing, cyanosis or edema Skin no rashes or lesions noted Neuro CN's II-XII intact bilaterally Psych mental status grossly normal Results Lab / Micro Data 10/26/24 11:54 10/26/24 11:54 Labs: Laboratory Results - last 24 hr 10/26/24 11:54: WBC 5.0, RBC 4.32 L, Hgb 13.2, Hct 39.2 L, MCV 90.7, MCH 30.6, MCHC 33.7, RDW Std Deviation 41.7, RDW Coeff of Renato 12.8, Plt Count 146 L, MPV 9.7, Immature Gran % (Auto) 0.400, Neut % (Auto) 64.3, Lymph % (Auto) 21.6, [place] % (Auto) 8.3, Eos % (Auto) 4.4, Baso % (Auto) 1.0, Absolute Neuts (auto) 3.2, Absolute Lymphs (auto) 1.07, Nucleated RBC % 0, Sodium 138, Potassium 4.4, Chloride 104, Carbon Dioxide 25.2, Anion Gap 9, BUN 16, Creatinine 0.94, Estim Creat Clear Calc 75.87, Est GFR (MDRD) Non-Af 82, BUN/Creatinine Ratio 17.1, Glucose 121 H, Calcium 9.4, Total Bilirubin 0.43, AST 28, ALT 25, Alkaline Phosphatase 77, Total Protein 7.2, Albumin 4.4, Globulin 2.8, Albumin/Globulin Ratio 1.5, Lipase 25 10/26/24 14:19: Lactic Acid 1.7 10/26/24 14:43: Urine Color Yellow, Urine Clarity Clear, Urine pH 6.5, Ur Specific [place] 1.010, Urine Protein 30 H, Urine Glucose (UA) Normal, Urine Ketones Negative, Urine Occult Blood 25 H, Urine Nitrite Negative, Urine Bilirubin Negative, Urine Urobilinogen Normal, Ur Leukocyte Esterase 25 H, Urine RBC 0-5 SEEN, Urine WBC 0-5 SEEN, Ur Squamous Epith Cells 0-5 SEEN, Urine Bacteria 0 SEEN, Urine Mucus 0 SEEN Imaging Radiology Impression Abdomen/Pelvis CT 10/26/24 14:50 IMPRESSION: Bilateral nonobstructive intrarenal calculi more prominent on the left side. Umbilical hernia as described with increased density within the hernia as well as the anterior peritoneal fat just deep to the umbilicus suggestive of possible incarceration. Clinical correlation recommended. Reading Location: [place] [address] Assessment & Plan Assessment/Plan (1) Incarcerated umbilical hernia: PLAN: Plan Discussed with patient and his plan for incarcerated medical hernia repair with possible mesh, possible bowel resection. Discussed procedure including but not limited to bleeding, infection, injury to another organ, recurrence and anesthesia patient had no other questions this time. Vickie Limon M.D. Pager: [phone] [facility] [address] [place] [address], [address] [place] [address] Office: [phone] 10/26/24 4648 <Electronically signed by Vickie Limon MD> Cosigner Signature (if applicable): CC: Dr. Vickie Limon MD; Dr. Abe Gilmore MD~ Signed [facility] Work Phone: History and physical note Author Dennis Guidry [facility] Note Date/Time December 25, 2024 9:32p [facility] Medical Records Department [address] [place] [address] History & Physical Exam 12/25/242129 MR#: [id number] Acct: [id number] Name: ZION MARSH Rep #:[id number] : 1945 79 From: Dennis Guidry MD PCP: Dr. Abe Gilmore MD Status:REG E R Location: ED HPI - General General Date of Service: 12/25/24 Chief Complaint: Pyelonephritis HPI Narrative ZION MARSH, is a 79 M who presents to the hospital with continued fevers, fever 101, he presented to the emergency room about 24 hours ago with fever a low white blood count, urine cultures were sent, prior urine cultures grew pansensitive Pseudomonas infection he had multiple large stones in the kidneys these were treated with laser lithotripsy and stent placement and now comes backto the hospital with fever elevated white blood count suspicious for left pyelonephritis. He will be admitted for IV antibiotics will consult infectious disease, will continue with ceftriaxone. Family is wondering if the stent should be removed they are asking it to be removed I do not think at this point until his infection is completely cured that we should remove the stent so we will do this day by day and decide when the stent comes out but I do not think Ishould remove the stent until his infection is cured. I explained this to the family. [facility] Medical History Kidney stone on left side Loss of hearing Prostate disease Low iron Restless legs Hypertension History of MRSA infection Wears glasses Anxiety Arthritis High cholesterol Gastric reflux Non-smoker CPAP (continuous positive airway pressure) dependence History of pain when walking History of stress test History of echocardiogram Cardiology follow-up encounter BPH (benign prostatic hyperplasia) Dyslipidemia Nephrolithiasis Coronary artery disease Home Medications ?Medication ?Instructions ?Recorded ?Last Taken ?Type aspirin 81 mg tablet,delayed 81 mg PO QHS BLOOD THINNE R 04/04/15 12/07/24 History release atorvastatin 40 mg tablet 40 mg PO QHS CHOLESTEROL 04/1012/15/24 History finasteride 5 mg tablet 5 mg PO QHS URINATION 12/15/24 History tamsulosin 0.4 mg capsule 0.4 mg PO QHS URINATION 04/1012/15/24 History doxazosin 4 mg tablet,extended 4 mg PO QHS HEART 01/2312/15/24 History release 24 hr (Cardura XL) cholecalciferol (vitamin D3) 25 25 mcg PO DAILY SUPPLE MENT 12/17/21 12/15/24 History mcg (1,000 unit) capsule (Vitamin D3) gabapentin 100 mg capsule 200 mg PO QHS PAIN 12/17/21 12/15/24 History losartan 50 mg tablet 50 mg PO DAILY BP 12/17/21 0 12/16/24 History multivitamin 1 tab PO DAILY SUPPLEMENT 12/16/24 History tramadol 50 mg tablet 50 mg PO 4X/DAY PRN pain 12/15/24 History ibuprofen 600 mg tablet 600 mg PO Q6H PRN pain #20 t abs 12/14/24 12/16/24 Rx acetaminophen 500 mg capsule 1,000 mg PO Q4H PRN pain 12/16/24 12/16/24 History omeprazole 20 mg capsule,delayed 40 mg PO DAILY 12/16/24 History release venlafaxine 150 mg 150 mg PO DAILY 12/16/24 History capsule,extended release 24 hr cephalexin 500 mg capsule 500 mg PO Q6 #20 CAPSULES Unknown Rx Allergy/AdvReac Type Severity Reaction Status Date / Time No Known Allergies Allergy Verified 12/25/24 20:10 Surgical History S/P umbilical hernia repair, follow-up exam Hx of bilateral cataract extraction Hx of hernia repair Hx of appendectomy History of carpal tunnel release of both wrists Hx of repair of right rotator cuff Hx of repair of left rotator cuff Hx of bilateral hip replacements Social History household members: spouse Smoking Status: Never smoker Vital Signs Vital Signs Vital Signs: 12/25/24 20:08 12/25/24 20:10 12/25/24 20:25 Temperature 99.8 F H 103 F H Temperature Source Oral Oral Pulse Rate 81 72 Respiratory Rate 18 38 H Respiratory Effort Short of Breath Labored Respiratory Pattern Tachypnea Blood Pressure 142/57 H 135/59 H Blood Pressure Mean 85 84 Pulse Ox 94 94 Oxygen Delivery Method Room Air Room Air 12/25/24 21:10 12/25/24 21:23 Temperature 101.4 F H 101.4 F H Temperature Source Oral Pulse Rate 66 66 Respiratory Rate 29 H 26 H Respiratory Effort Respiratory Pattern Blood Pressure 138/61 H 138/91 H Blood Pressure Mean 86 106 Pulse Ox 95 93 Oxygen Delivery Method Room Air Weight Weight: 103.4 kg Body Mass Index (BMI) 32.7 Physical Exam Const alert and oriented x3 General Appearance: cooperative HEENT normocephalic, head/scalp atraumatic, EAC's normal and TM's normal bilaterally Eyes PERRL and EOMs intact bilaterally Pupil: sluggish Neck no lymphadenopathy, supple and no JVD General: trachea midline Lymph Lymphatic: no lymphadenopathy noted, lymphedema and lymphadenopathy Resp normal respiratory effort, normal air movement and clear to auscultation bilaterally Cardio regular rate, regular rhythm and peripheral pulses 2+ throughout GI soft to palpation, non-tender and non-distended Extremity normal capillary refill and no clubbing, cyanosis or edema General Extremity: no tenderness to palpation of joints or extremities Skin no rashes or lesions noted General Skin Exam: turgor normal Lesions: no lesions Rashes: no rashes Neuro CN's II-XII intact bilaterally Speech: speech normal Motor Exam: strength 5/5 throughout; Negative for general weakness Psych thought process normal, cooperative and affect normal Appearance: appropriate Results Medical Records Data Attestation: I reviewed the patient's medical records Lab / Micro Data 12/25/24 20:34 12/25/24 20:34 Labs: Laboratory Results - last 24 hr 12/25/24 20:34: WBC 17.8 H, RBC 3.91 L, Hgb 11.9 L, Hct 34.8 L, MCV 89.0, MCH 30.4, MCHC 34.2, RDW Std Deviation 40.9, RDW Coeff of Renato 12.6, Plt Count 192, MPV 9.1, Immature Gran % (Auto) 0.900, Neut % (Auto) 91.4 H, Lymph % (Auto) 4.0 L, [place] % (Auto) 3.4, Eos % (Auto) 0.0, Baso % (Auto) 0.3, Absolute Neuts (auto)16.3 H, Absolute Lymphs (auto) 0.72 L, Nucleated RBC % 0 Assessment & Plan Assessment/Plan (1) Acute UTI: PLAN: Continue with ceftriaxone 1 g every 12 consult infectious disease. Continue with hydration. Continue with all his medications. Admit to the hospital (2) Kidney stone on left side: 12/25/242131 <Electronically signed by Dennis Guidry MD> Cosigner Signature (if applicable): CC: Dr. Dennis Guidry MD; Dr. Abe Gilmore MD~ Signed [facility] Work Phone: History and physical note Author Dennis Guidry [facility] Note Date/Time January 04, 2025 7:34 pm [facility] Medical Records Department [address] [place] [address] History & Physical Exam 01/04/251930 MR#: [id number] Acct: [id number] Name: ZION MARSH Rep #:[id number] : 1945 79 From: Dennis Guidry MD PCP: Dr. Abe Gilmore MD Status:ADM I N Location: [facility] [place] [id number] HPI - General General Date of Admission: 01/04/25 Date of Service: 01/04/25 Chief Complaint: UTI HPI Narrative ZION MARSH, is a 79 M who presents with fever, know h/o pseudomonas infection,was just treaeted by ID with IV antibiotics presented to ER with fevers, cT scan with stent in place and few non obstructivefragments in lower pole of left kidney, no hydro. pt admitted for further care. [facility] Medical History Kidney stone on left side Loss of hearing Prostate disease Low iron Restless legs Hypertension History of MRSA infection Wears glasses Anxiety Arthritis High cholesterol Gastric reflux Non-smoker CPAP (continuous positive airway pressure) dependence History of pain when walking History of stress test History of echocardiogram Cardiology follow-up encounter BPH (benign prostatic hyperplasia) Dyslipidemia Nephrolithiasis Coronary artery disease Home Medications ?Medication ?Instructions ?Recorded ?Last Taken ?Type aspirin 81 mg tablet,delayed 81 mg PO QHS BLOOD THINNE R 04/04/15 12/07/24 History release atorvastatin 40 mg tablet 40 mg PO QHS CHOLESTEROL 04/1012/15/24 History finasteride 5 mg tablet 5 mg PO QHS URINATION 12/15/24 History tamsulosin 0.4 mg capsule 0.4 mg PO QHS URINATION 04/1012/15/24 History doxazosin 4 mg tablet,extended 4 mg PO QHS HEART 01/2312/15/24 History release 24 hr (Cardura XL) cholecalciferol (vitamin D3) 25 25 mcg PO DAILY SUPPLE MENT 12/17/21 12/15/24 History mcg (1,000 unit) capsule (Vitamin D3) gabapentin 100 mg capsule 200 mg PO QHS PAIN 12/17/21 12/15/24 History losartan 50 mg tablet 50 mg PO DAILY BP 12/17/21 0 12/16/24 History multivitamin 1 tab PO DAILY SUPPLEMENT 12/16/24 History tramadol 50 mg tablet 50 mg PO 4X/DAY PRN pain 12/15/24 History ibuprofen 600 mg tablet 600 mg PO Q6H PRN pain #20 t abs 12/14/24 12/16/24 Rx acetaminophen 500 mg capsule 1,000 mg PO Q4H PRN pain 12/16/24 12/16/24 History omeprazole 20 mg capsule,delayed 40 mg PO DAILY 12/16/24 History release venlafaxine 150 mg 150 mg PO DAILY 12/16/24 History capsule,extended release 24 hr levofloxacin 500 mg tablet 500 mg PO DAILY #7 tabs 10/18 Unknown Rx Allergy/AdvReac Type Severity Reaction Status Date / Time No Known Allergies Allergy Verified 01/04/25 12:40 Surgical History S/P umbilical hernia repair, follow-up exam Hx of bilateral cataract extraction Hx of hernia repair Hx of appendectomy History of carpal tunnel release of both wrists Hx of repair of right rotator cuff Hx of repair of left rotator cuff Hx of bilateral hip replacements Social History household members: spouse Smoking Status: Never smoker Vital Signs Vital Signs Vital Signs: 01/04/25 12:40 01/04/25 14:19 01/04/25 14:19 Temperature 100.4 F H 100.4 F H Temperature Source Oral Oral Pulse Rate 93 65 Respiratory Rate 18 30 H Respiratory Effort Respiratory Pattern Blood Pressure 133/65 H 124/61 H Blood Pressure Mean 87 82 Pulse Ox 96 96 Oxygen Delivery Method Room Air Room Air Room Air 01/04/25 14:19 01/04/25 15:00 01/04/25 16:00 Temperature 99.1 F 99.1 F Temperature Source Oral Oral Pulse Rate 63 64 Respiratory Rate 27 H 29 H Respiratory Effort Normal Respiratory Pattern Normal Blood Pressure 145/60 H 145/77 H Blood Pressure Mean 88 99 Pulse Ox 97 99 Oxygen Delivery Method Room Air Room Air 01/04/25 17:00 01/04/25 18:00 01/04/25 18:35 Temperature 98.9 F 103 F H 103 F H Temperature Source Oral Oral Pulse Rate 75 74 75 Respiratory Rate 32 H 33 H 25 H Respiratory Effort Respiratory Pattern Blood Pressure 180/87 H 154/77 H 154/77 H Blood Pressure Mean 118 102 102 Pulse Ox 98 96 94 Oxygen Delivery Method Room Air Room Air 01/04/25 19:00 Temperature 103 F H Temperature Source Oral Pulse Rate 74 Respiratory Rate 32 H Respiratory Effort Respiratory Pattern Blood Pressure 153/61 H Blood Pressure Mean 91 Pulse Ox 94 Oxygen Delivery Method Room Air Weight Weight: 101.3 kg Body Mass Index (BMI) 32.0 Results Lab / Micro Data 01/04/25 14:06 01/04/25 14:06 Labs: Laboratory Results - last 24 hr 01/04/25 14:06: WBC 11.2 H, RBC 4.22 L, Hgb 12.5 L, Hct 37.8 L, MCV 89.6, MCH 29.6, MCHC 33.1, RDW Std Deviation 40.8, RDW Coeff of Renato 12.6, Plt Count 279, MPV 9.3, Immature Gran % (Auto) 0.500, Neut % (Auto) 87.6 H, Lymph % (Auto) 5.6 L, [place] % (Auto) 5.5, Eos % (Auto) 0.4, Baso % (Auto) 0.4, Absolute Neuts (auto)9.8 H, Absolute Lymphs (auto) 0.62 L, Nucleated RBC % 0, Sodium 134, Potassium 4.6, Chloride 101, Carbon Dioxide 21.3, Anion Gap 12, BUN 26 H, Creatinine 1.18,Estim Creat Clear Calc 59.55, Est GFR (MDRD) Non-Af 62, BUN/Creatinine Ratio 22.3 H, Glucose 129 H, Lactic Acid 1.3, Calcium 9.9, Total Bilirubin 0.41, AST 25, ALT 36, Alkaline Phosphatase 104, Total Protein 7.7, Albumin 4.2, Globulin 3.5, Albumin/Globulin Ratio 1.2 01/04/25 15:11: Urine Color Yellow, Urine Clarity Cloudy, Urine pH 6.0, Ur Specific [place] 1.010, Urine Protein 100 H, Urine Glucose (UA) Normal, Urine Ketones Negative, Urine Occult Blood 150 H, Urine Nitrite Positive H, Urine Bilirubin Negative, Urine Urobilinogen Normal, Ur Leukocyte Esterase 500 H, Urine RBC 0-5 SEEN, Urine WBC >100 SEEN, Ur Squamous Epith Cells 0-5 SEEN, UrineBacteria 2+, Urine Mucus 0 SEEN Imaging Radiology Impression Abdomen/Pelvis CT 01/04/25 17:26 IMPRESSION: No acute abnormalities. Details above. Bilateral nonobstructive nephrolithiasis. Left nephroureteral stent. Reading Location: [place] [id number] Assessment & Plan Assessment/Plan (1) Complicated urinary tract infection: PLAN: admit for IV antibiotics consult ID (2) History of ureter stent: PLAN: plan to take to surgery Thursday if stable to finish laser stones and removestent. (3) Hx of renal calculi: 01/04/251933 <Electronically signed by Dennis Guidry MD> Cosigner Signature (if applicable): CC: Dr. Dennis Guidry MD; Dr. Abe Gilmore MD~ Signed [facility] Work Phone: Hospital Discharge instructions Additional Instructions You must remain nonweightbearing on your right lower extremity. Use crutches, walker, what ever you need to transfer to restroom and around her house, but otherwise rest.[facility] Work Phone: [facility] instructionsWK[facility] Work Phone: Reason for referral (narrative)* Outpatient Procedure (Routine) - Authorized Specialty Diagnoses / Procedures Referred By Contac t Referred To [facility] Diagnoses Coronary artery disease involving [place] heart without angina pectoris, unspecified vessel or lesion type Enlarged thoracic aorta (HCC) Shortness of breath Syncope, unspecified syncope type Procedures ECHO ECHO TTHRC R-T 2D W/WOM-MODE COMPL SPEC&COLR D Gerson Young, DO [address] [address] [facility] [address] [address] Referral ID Status Reason Start Date Expiration Date Visits Requested Visits Authorized [id number] Authorized Auto-Generat ed Referral 11/19/2021 11/19/2022 1 1 [facility] for referral (narrative)* Outpatient Procedure (Routine) - Authorized Specialty Diagnoses / Procedures Referred By Contac t Referred To Contact [facility] [place] Diagnoses Enlarged thoracic aorta (HCC) Coronary artery disease involving [place] heart without angina pectoris, unspecified vessel or lesion type Procedures ECHO ECHO TTHRC R-T 2D W/WOM-MODE COMPL SPEC&COLR [place] Card APRN.CNP [address] [address] [facility] [address] [address] Referral ID Status Reason Start Date Expiration Date Visits Requested Visits Authorized [id number] Authorized Auto-Generat ed Referral 06/23/2024 1 1 [facility] for referral (narrative)* Outpatient Procedure (Routine) - Pending Review Specialty Diagnoses / Procedures Referred By Contac t Referred To Contact [facility] Diagnoses Coronary artery disease involving [place] heart without angina pectoris, unspecified vessel or lesion type Syncope, unspecified syncope type Enlarged thoracic aorta (HCC) Essential hypertension Mixed hyperlipidemia Shortness of breath JOSE (obstructive sleep apnea) Procedures ECHO ECHO TTHRC R-T 2D W/WOM-MODE COMPL SPEC&COLR D Gerson Young DO [address] [place] [id number] [address] Referral ID Status Reason Start Date Expiration Date Visits Requested Visits Authorized [id number] Pending Review Auto-Generat ed Referral 10/01/2024 12/30/2024 1 1 [facility] for referral (narrative)No reason for referral information availableWKettering Health [facility] Work Phone: Summary Purpose Family History Relationship Condition Age at Onset Recorded Date/T lucero Unknown Family History?No pe rtinent history Unknown April 04, 2015 5:39pm Family History?No pe rtinent history Unknown April 04, 2015 5:39pm Relationship Condition Age at Onset Recorded Date/T lucero Unknown Family History?No pe rtinent history Unknown April 04, 2015 4:39pm Family History?No pe rtinent history Unknown April 04, 2015 4:39pm Advance Directives Documents on File Type Date Recorded Patient Instrumentation Tech Expl anation Advance Directive(s) 06/23/2019 3:01 AM Advance Directive(s) 12/06/2018 9:22 AM Advance Directive(s) 01/14/2016 10:11 AM Documents on File Type Date Recorded Patient Instrumentation Tech Expl anation Advance Directive(s) 06/23/2019 3:01 AM Advance Directive(s) 12/06/2018 9:22 AM Advance Directive(s) 01/14/2016 10:11 AM Advance Directive Response Recorded Date/ Time Advance Directives Yes March 10:40am Living Will Yes December 13, 2021 1 1:00am Power of [place] Yes December 13, 2021 11:00am Advance Directive Response Recorded Date/ Time Name of Medical Power of [place] ? December 13, 2021 11:00am Advance Directives Yes March 10:40am Living Will Yes December 20, 2021 7 :14pm Power of [place] Yes December 20, 2021 7:14pm Advance Directive Response Recorded Date/ Time Name of Medical Power of [place] ? December 13, 2021 11:00am Name of Medical Power of [place] MARTHA MARSH December 20, 2021 7:14pm Advance Directives Yes March 10:40am Living Will Yes December 20, 2021 7 :14pm Power of [place] Yes December 20, 2021 7:14pm Advance Directive Response Recorded Date/ Time Advance Directives Yes March 9:40am Living Will Yes December 20, 2021 6 :14pm Power of [place] Yes December 20, 2021 6:14pm Advance Directive Response Recorded Date/ Time Advance Directives Yes March 10:40am Living Will Yes December 20, 2021 7 :14pm Power of [place] Yes December 20, 2021 7:14pm Advance Directive Response Recorded Date/ Time Living Will Yes October 26, 2024 2:27pm Do you have a Healthcare Power of [place]? Yes October 26, 2024 2:27pm Name of Medical Power of [place] MARTHA MARSH October 26, 2024 2:27pm Living Will Yes December 20, 2021 7 :14pm Do you have a Healthcare Power of [place]? Yes December 20, 2021 7:14pm Advance Directives Yes March 10:40am Advance Directive Response Recorded Date/ Time Living Will Yes October 26, 2024 8:39pm Do you have a Healthcare Power of [place]? Yes October 26, 2024 8:39pm Name of Medical Power of [place] MARTHA MARSH October 26, 2024 8:39pm Living Will Yes December 20, 2021 7 :14pm Do you have a Healthcare Power of [place]? Yes December 20, 2021 7:14pm Advance Directives Yes March 10:40am Advance Directive Response Recorded Date/ Time Living Will Yes October 26, 2024 8:39pm Do you have a Healthcare Power of [place]? Yes October 26, 2024 8:39pm Name of Medical Power of [place] MARTHA MARSH October 26, 2024 8:39pm Do you have a Healthcare Power of [place]? No November 24, 2024 8:03am Do you have a Healthcare Power of [place]? Yes December 08, 2024 2:19pm Advance Directives Yes March 10:40am Advance Directive Response Recorded Date/ Time Living Will Yes October 26, 2024 8:39pm Do you have a Healthcare Power of [place]? Yes October 26, 2024 8:39pm Name of Medical Power of [place] MARTHA MARSH October 26, 2024 8:39pm Do you have a Healthcare Power of [place]? No December 16, 2024 8:12am Do you have a Healthcare Power of [place]? No November 24, 2024 8:03am Do you have a Healthcare Power of [place]? Yes December 08, 2024 2:19pm Do you have a Healthcare Power of [place]? No December 25, 2024 10:08am Advance Directives Yes March 10:40am Advance Directive Response Recorded Date/ Time Living Will Yes October 26, 2024 8:39pm Do you have a Healthcare Power of [place]? Yes October 26, 2024 8:39pm Name of Medical Power of [place] MARTHA MARSH October 26, 2024 8:39pm Do you have a Healthcare Power of [place]? No December 16, 2024 8:12am Do you have a Healthcare Power of [place]? No December 25, 2024 8:24pm Do you have a Healthcare Power of [place]? No November 24, 2024 8:03am Do you have a Healthcare Power of [place]? Yes December 08, 2024 2:19pm Do you have a Healthcare Power of [place]? No December 25, 2024 10:08am Advance Directives Yes March 10:40am Advance Directive Response Recorded Date/ Time Living Will Yes October 26, 2024 8:39pm Do you have a Healthcare Power of [place]? Yes October 26, 2024 8:39pm Name of Medical Power of [place] MARTHA MARSH October 26, 2024 8:39pm Do you have a Healthcare Power of [place]? No December 16, 2024 8:12am Do you have a Healthcare Power of [place]? Yes December 25, 2024 10:22pm Do you have a Healthcare Power of [place]? No November 24, 2024 8:03am Do you have a Healthcare Power of [place]? Yes December 08, 2024 2:19pm Do you have a Healthcare Power of [place]? No December 25, 2024 10:08am Do you have a Healthcare Power of [place]? No January 04, 2025 2:19pm Advance Directives Yes March 10:40am Hospital Course Note HNO ID: [id number] Author: Johanne rushing (Instrument Installer) Drain Service: Trauma Author Type: Nurse Practitioner Type: Discharge Summary Filed: 06/23/2019 12:22 PM Note Text: Attestation signed by Perico Peterson at 06/23/2019 9:36 PM Attending Note I personally saw and examined the patient. I reviewed the resident's note. I agree with the resident's assessment and plan unless otherwise noted. Signature: Perico Peterson MD Date: 06/23/2019 Time: 9:36 PM DISCHARGE SUMMARY PATIENT NAME: Zion Marsh Code Status: Not on file Highest Readmission Risk Score: 10 The 30 day readmissions risk score is derived from an internally validated risk model which evaluates patient level characteristics, utilization history, medication orders and lab results up until the day of discharge. Patients with a score of 40 or above are considered highest risk for (more content not included)... Chief Complaint and Reason for Visit Chief Complaint right hip pain Chief Complaint right hip pain REV RT TOTAL HIP POSTERIOR REV RT TOTAL HIP POSTERIOR REV RT TOTAL HIP POSTERIOR Reason for Visit BPH (benign prostati c hyperplasia) History of revision of total replacement of right hip joint Obstructive sleep apnea Hypertension Chief Complaint PAIN- COPY PCP Chief Complaint PSA Chief Complaint JOSE; BIPAP S REPAP * DEVICE TAGGED AC10 Chief Complaint Admit Date PAIN- COPY PCP August 01, 2024 1: 43pm abd pain October 26, 2024 11:3 1am abd pain October 26, 2024 4:23 pm Chief Complaint Admit Date PAIN- COPY PCP August 01, 2024 1: 43pm abd pain October 26, 2024 4:23 pm abd pain October 26, 2024 5:41 pm Reason for Visit Admit Date Incarcerated umbilical hernia October 26, 2024 5:41pm Chief Complaint Admit Date abd pain October 26, 2024 4:23 pm INCARCERATED UMBILICAL HERNIA October 26, 2024 4:27pm UMBILICAL HERNIA DOS 10/26November 09 2:22pm hematuria November 24, 2024 7:19am Cysto,Ureteroscopy,Retro,Laser,Stent December 14, 2024 8:39am Reason for Visit Admit Date Incarcerated umbilical hernia October 26, 2024 4:27pm S/P umbilical hernia repair, follow-up e xam November 09, 2024 2:22pm Kidney stone on left side December 14, 2024 8:39am Chief Complaint Admit Date abd pain October 26, 2024 4:23 pm INCARCERATED UMBILICAL HERNIA October 26, 2024 4:27pm UMBILICAL HERNIA DOS 10/26November 09 2:22pm hematuria November 24, 2024 7:19am Cysto,Ureteroscopy,Retro,Laser,Stent December 14, 2024 8:39am KIDNEY December 16, 2024 7:58a m weakness December 25, 2024 10:02 am Chief Complaint Admit Date abd pain October 26, 2024 4:23 pm INCARCERATED UMBILICAL HERNIA October 26, 2024 4:27pm UMBILICAL HERNIA DOS 10/26November 09 2:22pm hematuria November 24, 2024 7:19am Cysto,Ureteroscopy,Retro,Laser,Stent December 14, 2024 8:39am KIDNEY December 16, 2024 7:58a m weakness December 25, 2024 10:02 am UTI FEVER U-STENT WEAKNESS December 25 9:49pm Reason for Visit Admit Date Incarcerated umbilical hernia October 26, 2024 4:27pm S/P umbilical hernia repair, follow-up e xam November 09, 2024 2:22pm Kidney stone on left side December 14, 2024 8:39am Acute UTI December 25, 2024 9:49p m History of ureter stent December 25, 2024 9 :49pm Hx of renal calculi December 25, 2024 9:49p m Kidney stone on left side December 25, 2024 9:49pm Unable to ambulate December 25, 2024 9:49p m Weakness generalized December 25, 2024 9:49 pm Chief Complaint Admit Date abd pain October 26, 2024 4:23 pm INCARCERATED UMBILICAL HERNIA October 26, 2024 4:27pm UMBILICAL HERNIA DOS 10/26November 09 2:22pm hematuria November 24, 2024 7:19am Cysto,Ureteroscopy,Retro,Laser,Stent December 14, 2024 8:39am KIDNEY December 16, 2024 7:58a m weakness December 25, 2024 10:02 am UTI December 25, 2024 9:34p m Urinary tract infection December 25, 2024 1 1:00pm Urinary tract infection December 26, 2024 7 :38am Urinary tract infection December 27, 2024 7 :29am COMPLICATED UTI, FAILED OUTPATINT THERAP Y January 04, 2025 7:13pm Reason for Visit Admit Date Incarcerated umbilical hernia October 26, 2024 4:27pm S/P umbilical hernia repair, follow-up e xam November 09, 2024 2:22pm Kidney stone on left side December 14, 2024 8:39am History of ureter stent December 25, 2024 9 :34pm Hx of renal calculi December 25, 2024 9:34p m Acute UTI December 25, 2024 9:34p m Kidney stone on left side December 25, 2024 9:34pm Unable to ambulate December 25, 2024 9:34p m Weakness generalized December 25, 2024 9:34 pm Complicated urinary tract infection January 04, 2025 7:13pm History of ureter stent January 04, 2025 7:13pm Hx of renal calculi January 04, 2025 7:13 pm Reason for Referral Specialty Diagnoses / Procedures Referred By Joseph t Referred To Contact Diagnoses JOSE (obstructive sleep apnea) Procedures CONSULT TO SLEEP MEDICINE - ADULT OFFICE/OUTPATIENT [facility] 60-74 MINUTES Abe Gilmore MD [address] [place] [address] Referral ID Status Reason Start Date Expiration Date Visits Requested Visits Authorized [id number] Authorized PCP Requested Referral 10/22/2022 10/22/2023 1 1 Additional Source Comments (unrecognized sect ion and content) No Status Records FoundNo Status Records FoundNo Status Records FoundNo Status Records FoundNo Status Records FoundNo Status Records Found INFORMATION SOURCE (unrecogn ized section and content) DATE CREATED AUTHOR [facility] DATE CREATED AUTHOR AUTHOR'S ORGANIZ ATION 07/03/2019 [facility] DATE CREATED AUTHOR AUTHOR'S ORGANIZ ATION 09/21/2019 [facility] DATE CREATED AUTHOR AUTHOR'S ORGANIZ ATION 10/23/2020 [facility] DATE CREATED AUTHOR AUTHOR'S ORGANIZ ATION 12/10/2024 [facility] DATE CREATED AUTHOR AUTHOR'S ORGANIZ ATION 01/03/2025 [facility] Source Comments (unrecognize d section and content) In the event this informatio n is protected by the Federal Confidentiality of Alcohol and Drug Abuse Patient Records regulations: The Federal rules restrict any use of the information to criminally investigate or prosecute any alcohol or drug abuse patient.[facility] the event this information is protected by the Federal Confidentiality of Alcohol and Drug Abuse Patient Records regulations: The Federal rules restrict any use of the information to criminally investigate or prosecute any alcohol or drug abuse patient.[facility] the event this information is protected by the Federal Confidentiality of Alcohol and Drug Abuse Patient Records regulations: The Federal rules restrict any use of the information to criminally investigate or prosecute any alcohol or drug abuse patient.[facility] the event this information is protected by the Federal Confidentiality of Alcohol and Drug Abuse Patient Records regulations: The Federal rules restrict any use of the information to criminally investigate or prosecute any alcohol or drug abuse patient.[facility] the event this information is protected by the Federal Confidentiality of Alcohol and Drug Abuse Patient Records regulations: The Federal rules restrict any use of the information to criminally investigate or prosecute any alcohol or drug abuse patient.[facility] HospitalIn the event this information is protected by the Federal Confidentiality of Alcohol and Drug Abuse Patient Records regulations: The Federal rules restrict any use of the information to criminally investigate or prosecute any alcohol or drug abuse patient.[facility] HospitalIn the event this information is protected by the Federal Confidentiality of Alcohol and Drug Abuse Patient Records regulations: The Federal rules restrict any use of the information to criminally investigate or prosecute any alcohol or drug abuse patient.[facility] the event this information is protected by the Federal Confidentiality of Alcohol and Drug Abuse Patient Records regulations: The Federal rules restrict any use of the information to criminally investigate or prosecute any alcohol or drug abuse patient.[facility] HospitalIn the event this information is protected by the Federal Confidentiality of Alcohol and Drug Abuse Patient Records regulations: The Federal rules restrict any use of the information to criminally investigate or prosecute any alcohol or drug abuse patient.[facility] HospitalIn the event this information is protected by the Federal Confidentiality of Alcohol and Drug Abuse Patient Records regulations: The Federal rules restrict any use of the information to criminally investigate or prosecute any alcohol or drug abuse patient.[facility] HospitalIn the event this information is protected by the Federal Confidentiality of Alcohol and Drug Abuse Patient Records regulations: The Federal rules restrict any use of the information to criminally investigate or prosecute any alcohol or drug abuse patient.[facility] HospitalIn the event this information is protected by the Federal Confidentiality of Alcohol and Drug Abuse Patient Records regulations: The Federal rules restrict any use of the information to criminally investigate or prosecute any alcohol or drug abuse patient.[facility] HospitalIn the event this information is protected by the Federal Confidentiality of Alcohol and Drug Abuse Patient Records regulations: The Federal rules restrict any use of the information to criminally investigate or prosecute any alcohol or drug abuse patient.[facility] HospitalIn the event this information is protected by the Federal Confidentiality of Alcohol and Drug Abuse Patient Records regulations: The Federal rules restrict any use of the information to criminally investigate or prosecute any alcohol or drug abuse patient.[facility] HospitalIn the event this information is protected by the Federal Confidentiality of Alcohol and Drug Abuse Patient Records regulations: The Federal rules restrict any use of the information to criminally investigate or prosecute any alcohol or drug abuse patient.[facility] HospitalIn the event this information is protected by the Federal Confidentiality of Alcohol and Drug Abuse Patient Records regulations: The Federal rules restrict any use of the information to criminally investigate or prosecute any alcohol or drug abuse patient.[facility] HospitalIn the event this information is protected by the Federal Confidentiality of Alcohol and Drug Abuse Patient Records regulations: The Federal rules restrict any use of the information to criminally investigate or prosecute any alcohol or drug abuse patient.[facility] HospitalIn the event this information is protected by the Federal Confidentiality of Alcohol and Drug Abuse Patient Records regulations: The Federal rules restrict any use of the information to criminally investigate or prosecute any alcohol or drug abuse patient.[facility] HospitalIn the event this information is protected by the Federal Confidentiality of Alcohol and Drug Abuse Patient Records regulations: The Federal rules restrict any use of the information to criminally investigate or prosecute any alcohol or drug abuse patient.[facility] HospitalIn the event this information is protected by the Federal Confidentiality of Alcohol and Drug Abuse Patient Records regulations: The Federal rules restrict any use of the information to criminally investigate or prosecute any alcohol or drug abuse patient.[facility] HospitalIn the event this information is protected by the Federal Confidentiality of Alcohol and Drug Abuse Patient Records regulations: The Federal rules restrict any use of the information to criminally investigate or prosecute any alcohol or drug abuse patient.[facility] HospitalIn the event this information is protected by the Federal Confidentiality of Alcohol and Drug Abuse Patient Records regulations: The Federal rules restrict any use of the information to criminally investigate or prosecute any alcohol or drug abuse patient.[facility] HospitalIn the event this information is protected by the Federal Confidentiality of Alcohol and Drug Abuse Patient Records regulations: The Federal rules restrict any use of the information to criminally investigate or prosecute any alcohol or drug abuse patient.[facility] HospitalIn the event this information is protected by the Federal Confidentiality of Alcohol and Drug Abuse Patient Records regulations: The Federal rules restrict any use of the information to criminally investigate or prosecute any alcohol or drug abuse patient.[facility] HospitalIn the event this information is protected by the Federal Confidentiality of Alcohol and Drug Abuse Patient Records regulations: The Federal rules restrict any use of the information to criminally investigate or prosecute any alcohol or drug abuse patient.[facility] the event this information is protected by the Federal Confidentiality of Alcohol and Drug Abuse Patient Records regulations: The Federal rules restrict any use of the information to criminally investigate or prosecute any alcohol or drug abuse patient.[facility] HospitalIn the event this information is protected by the Federal Confidentiality of Alcohol and Drug Abuse Patient Records regulations: The Federal rules restrict any use of the information to criminally investigate or prosecute any alcohol or drug abuse patient.[facility] HospitalIn the event this information is protected by the Federal Confidentiality of Alcohol and Drug Abuse Patient Records regulations: The Federal rules restrict any use of the information to criminally investigate or prosecute any alcohol or drug abuse patient.[facility] HospitalIn the event this information is protected by the Federal Confidentiality of Alcohol and Drug Abuse Patient Records regulations: The Federal rules restrict any use of the information to criminally investigate or prosecute any alcohol or drug abuse patient.[facility] HospitalIn the event this information is protected by the Federal Confidentiality of Alcohol and Drug Abuse Patient Records regulations: The Federal rules restrict any use of the information to criminally investigate or prosecute any alcohol or drug abuse patient.[facility] HospitalIn the event this information is protected by the Federal Confidentiality of Alcohol and Drug Abuse Patient Records regulations: The Federal rules restrict any use of the information to criminally investigate or prosecute any alcohol or drug abuse patient.[facility] HospitalIn the event this information is protected by the Federal Confidentiality of Alcohol and Drug Abuse Patient Records regulations: The Federal rules restrict any use of the information to criminally investigate or prosecute any alcohol or drug abuse patient.[facility] HospitalIn the event this information is protected by the Federal Confidentiality of Alcohol and Drug Abuse Patient Records regulations: The Federal rules restrict any use of the information to criminally investigate or prosecute any alcohol or drug abuse patient.[facility] HospitalIn the event this information is protected by the Federal Confidentiality of Alcohol and Drug Abuse Patient Records regulations: The Federal rules restrict any use of the information to criminally investigate or prosecute any alcohol or drug abuse patient.[facility] HospitalIn the event this information is protected by the Federal Confidentiality of Alcohol and Drug Abuse Patient Records regulations: The Federal rules restrict any use of the information to criminally investigate or prosecute any alcohol or drug abuse patient.[facility] HospitalIn the event this information is protected by the Federal Confidentiality of Alcohol and Drug Abuse Patient Records regulations: The Federal rules restrict any use of the information to criminally investigate or prosecute any alcohol or drug abuse patient.[facility] HospitalIn the event this information is protected by the Federal Confidentiality of Alcohol and Drug Abuse Patient Records regulations: The Federal rules restrict any use of the information to criminally investigate or prosecute any alcohol or drug abuse patient.[facility] Reason for Visit (unrecogniz ed section and content) Reason Comments F/U 6 months Reason Comments Cardiology Follow Up no issues Reason Comments Results Reason Comments Total Hip Replacement tomorrow Reason Comments Cardiac Clearance [facility] Reason Comments Request for Lab Orders Reason Comments Appointment Reason Comments Hernia Umbilical hernia Hypertension RF Reason Onset Date Comments Refill Request 04/29/2022 Reason Comments Patient Question Medication Problem Reason Comments Refill Request Reason Comments Rash Pt reported circular raised area on (RT) hip onset unknown, denied pain. Reason Comments 6 Month Exam Reason Onset Date Comments Refill Request 10/28/2022 Reason Comments Orders Reason Comments Hypertension Hyperlipidemia Physical Reason Comments Sleep Apnea Reason Comments Follow Up Reason Comments Follow Up Follow upPt reports one episode of syncope a few weeks ago. Pt states he didn't drink enough water for the hot weather. No ER or hospital. No other symptoms at the time. BP currently running lower then Pt normal. Pt does not take BP at home currently. Reason Comments Laceration Cut on right knee x 2 hrs Reason Comments Lab Orders Reason Comments 6 Month Exam Reason Onset Date Comments Refill Request 04/27/2024 Reason Onset Date Comments Refill Request 07/07/2024 Reason Onset Date Comments Refill Request 07/11/2024 Reason Comments Urinary Problem Lower back pain on r ight side, possible kidney stone x 1.5 weeks Reason Comments Follow Up 6 months Reason Comments [facility] Teams (unrecognized sec tion and content) Team Status: Active Member Role Status Dates Dr. Abe Gilmore MD Primary Care Provider Active Team Status: Active Member Role Status Dates Dr. Abe Gilmore MD Primary Care Provider Active Start: October 26, 2024 Dr. Stevie Resendiz DO Emergency Provider Active Start: October 26, 2024 Dr. Vickie Limon MD Attending Provider Active Start: October 26, 2024 Team Status: Inactive Member Role Status Dates Dr. Abe Gilmore MD Primary Care Provider Active Start: October 26, 2024 End: October 26, 2024 Dr. Stevie Resendiz DO Emergency Provider Active Start: October 26, 2024 End: October 26, 2024 Dr. Vickie Limon MD Admit Provider Active S tart: October 26, 2024 End: October 26, 2024 Dr. Vickie Limon MD Attending Provider Active Start: October 26, 2024 End: October 26, 2024 Team Status: Inactive Member Role Status Dates Dr. Abe Gilmore MD Primary Care Provider Active Start: November 09, 2024 End: November 09, 2024 Dr. Abe Gilmore MD Referring Provider Active Start: November 09, 2024 End: November 09, 2024 Lexis ELLSWORTH PA-C Attending Provider Active Start: November 09, 2024 End: November 09, 2024 Team Status: Inactive Member Role Status Dates Dr. Abe Gilmore MD Primary Care Provider Active Start: November 24, 2024 End: November 24, 2024 Graham Thibodeaux MD Attending Provider Active Star t: November 24, 2024 End: November 24, 2024 Graham Thibodeaux MD Emergency Provider Active Star t: November 24, 2024 End: November 24, 2024 Team Status: Inactive Member Role Status Dates Dr. Abe Gilmore MD Primary Care Provider Active Start: December 14, 2024 End: December 14, 2024 Dr. Dennis Guidry MD Attending Provider Active Start: December 14, 2024 End: December 14, 2024 Dr. Dennis Guidry MD Referring Provider Active Start: December 14, 2024 End: December 14, 2024 Osteopathic Neurologist Relationship Specialty Start Date End Date Abe Gilmore MD [address] [facility] [place] [address] PCP - General Family Practice 08/27/15 Osteopathic Neurologist Relationship Specialty Start Date End Date Abe Gilmore MD [address] [facility] [place] [address] PCP - General Family Practice 08/27/15 Osteopathic Neurologist Relationship Specialty Start Date End Date Abe Gilmore MD [address] [facility] [place] [address] PCP - General Family Practice 08/27/15 Osteopathic Neurologist Relationship Specialty Start Date End Date Abe Gilmore MD [address] [facility] [place] [address] PCP - General Family Practice 08/27/15 Osteopathic Neurologist Relationship Specialty Start Date End Date Abe Gilmore MD [address] [facility] [place] [address] PCP - General Family Practice 08/27/15 Osteopathic Neurologist Relationship Specialty Start Date End Date Abe Gilmore MD [address] [facility] [place] [address] PCP - General Family Practice 08/27/15 Osteopathic Neurologist Relationship Specialty Start Date End Date Abe Gilmore MD [address] [facility] [place] [address] PCP - General Family Practice 08/27/15 Osteopathic Neurologist Relationship Specialty Start Date End Date Abe Gilmore MD [address] [facility] [place] [address] PCP - General Family Practice 08/27/15 Osteopathic Neurologist Relationship Specialty Start Date End Date Abe Gilmore MD [address] [facility] [place] [address] PCP - General Family Medicine 08/27/15 Osteopathic Neurologist Relationship Specialty Start Date End Date Abe Gilmore MD [address] [facility] [place] [address] PCP - General Family Medicine 08/27/15 Osteopathic Neurologist Relationship Specialty Start Date End Date Abe Gilmore MD [address] [facility] [place] [address] PCP - General Family Medicine 08/27/15 Osteopathic Neurologist Relationship Specialty Start Date End Date Abe Gilmore MD [address] [facility] [place] [address] PCP - General Family Medicine 08/27/15 Osteopathic Neurologist Relationship Specialty Start Date End Date Abe Gilmore MD [address] [facility] [place] [address] PCP - General Family Medicine 08/27/15 Team Status: Active Member Role Status Dates Dr. Abe Gilmore MD Family Provider Active Dr. Abe Gilmore MD Primary Care Provider Active Team Status: Inactive Member Role Status Dates Dr. Abe Gilmore MD Primary Care Provider Active Ghazala Mejia NP-C Attending Provider, Vane gutierrez Provider Active Osteopathic Neurologist Relationship Specialty Start Date End Date Abe Gilmore MD [address] [facility] [place] [address] PCP - General Family Medicine 08/27/15 Osteopathic Neurologist Relationship Specialty Start Date End Date Abe Gilmore MD [address] [facility] [place], [place] [address] PCP - General Family Medicine 08/27/15 Osteopathic Neurologist Relationship Specialty Start Date End Date Abe Gilmore MD [address] [facility] [place], [place] [address] PCP - General Family Medicine 08/27/15 Osteopathic Neurologist Relationship Specialty Start Date End Date Abe Gilmore MD [address] [facility] [place], [place] [address] PCP - General Family Medicine 08/27/15 Osteopathic Neurologist Relationship Specialty Start Date End Date Abe Gilmore MD [address] [facility] [place], [place] [address] PCP - General Family Medicine 08/27/15 Osteopathic Neurologist Relationship Specialty Start Date End Date Abe Gilmore MD [address] [facility] [place], [place] [address] PCP - General Family Medicine 08/27/15 Team Status: Inactive Member Role Status Dates Dr. Abe Gilmore MD Primary Care Provider Active Dr. Candida Jain MD Attending Provider, Referring Provider Active Team Status: Inactive Member Role Status Dates Dr. Abe Gilmore MD Primary Care Provider, Attending Provider Active Osteopathic Neurologist Relationship Specialty Start Date End Date Abe Gilmore MD [address] [facility] [place], [place] [address] PCP - General Family Medicine 08/27/15 Team Status: Inactive Member Role Status Dates Dr. Abe Gilmore MD Primary Care Provider Active Fartun Rubin Attending Provider, Referring Provide r Active Osteopathic Neurologist Relationship Specialty Start Date End Date Abe Gilmore MD [address] [place], [place] [address] PCP - General Family Medicine 08/27/15 Osteopathic Neurologist Relationship Specialty Start Date End Date Abe Gilmore MD [address] [place] [address] PCP - General Family Medicine 08/27/15 Osteopathic Neurologist Relationship Specialty Start Date End Date Abe Gilmore MD [address] [place] [address] PCP - General Family Medicine 08/27/15 Osteopathic Neurologist Relationship Specialty Start Date End Date Abe Gilmore MD [address] [place] [address] PCP - General Family Medicine 08/27/15 Osteopathic Neurologist Relationship Specialty Start Date End Date Abe Gilmore MD [address] [place] [address] PCP - General Family Medicine 08/27/15 Osteopathic Neurologist Relationship Specialty Start Date End Date Abe Gilmore MD [address] [place] [address] PCP - General Family Medicine 08/27/15 Osteopathic Neurologist Relationship Specialty Start Date End Date Abe Gilmore MD [address] [place] [address] PCP - General Family Medicine 08/27/15 Osteopathic Neurologist Relationship Specialty Start Date End Date Abe Gilmore MD [address] [place] [address] PCP - General Family Medicine 08/27/15 Destiny Auguste, DREW.FORMING DEPARTMENT END FINDER [address] [place] [address] Nonprofit Fundraiser Family [facility] 07/04/24 Constance Andrade APRN.FORMING DEPARTMENT END FINDER [address] [place] [address] [facility]24 Osteopathic Neurologist Relationship Specialty Start Date End Date Abe Gilmore MD [address] [place] [address] PCP - General Family Medicine 08/27/15 Destiny Auguste APRN.FORMING DEPARTMENT END FINDER [address] [place] [address] Counts Include 234 [facility] At [facility] 07/04/24 Constance Andrade APRN.FORMING DEPARTMENT END FINDER [address] [place] [address] Counts Include 234 [facility] At [facility] 07/04/24 Osteopathic Neurologist Relationship Specialty Start Date End Date Abe Gilmore MD [address] [place] [address] PCP - General Family Medicine 08/27/15 Destiny Auguste APRN.FORMING DEPARTMENT END FINDER [address] [place] [address] Counts Include 234 [facility] At [facility] 07/04/24 Constance Andrade LIFTER/DRIVER.FORMING DEPARTMENT END FINDER [address] [place] [address] Counts Include 234 [facility] At [facility] 07/04/24 Osteopathic Neurologist Relationship Specialty Start Date End Date Abe Gilmore MD [address] [facility] [address] PCP - General Family Medicine 08/27/15 Destiny Auguste, LIFTER/DRIVER.FORMING DEPARTMENT END FINDER [address] [facility] [place], [place] [address] Counts Include 234 Beds At [facility] 07/04/24 Constance Andrade LIFTER/DRIVER.FORMING DEPARTMENT END FINDER [address] [place], [place] [address] Counts Include 234 [facility] At [facility] 07/04/24 Team Status: Inactive Member Role Status Dates Dr. Abe Gilmore MD Primary Care Provider Active Start: August 01, 2024 End: August 01, 2024 Dr. Candida Jain MD Attending Provider Active Start: August 01, 2024 End: August 01, 2024 Dr. Candida Jain MD Referring Provider Active Start: August 01, 2024 End: August 01, 2024 Team Status: Inactive Member Role Status Dates Dr. Abe Gilmore MD Primary Care Provider Active Start: October 26, 2024 End: October 26, 2024 Dr. Stevie Resendiz DO Emergency Provider Active Start: October 26, 2024 End: October 26, 2024 Osteopathic Neurologist Relationship Specialty Start Date End Date Abe Gilmore MD [address] [place] [address] PCP - General Family Medicine 08/27/15 Destiny Auguste, LIFTER/DRIVER.FORMING DEPARTMENT END FINDER [address] [place] [address] Counts Include 234 [facility] At [facility] 07/04/24 Constance Andrade LIFTER/DRIVER.FORMING DEPARTMENT END FINDER [address] [place], [place] [id number] Counts Include 234 [facility] At [facility] 07/04/24 Osteopathic Neurologist Relationship Specialty Start Date End Date Abe Gilmore MD [address] [facility] [place], [place] [id number] PCP - General Family Medicine 08/27/15 Destiny Auguste APRN.FORMING DEPARTMENT END FINDER [address] [place], [place] [address] Counts Include 234 [facility] At [facility] 07/04/24 Constance Andrade APRN.FORMING DEPARTMENT END FINDER [address] [place], [place] [address] Counts Include 234 B[facility] At [facility] 07/04/24 Team Status: Inactive Member Role Status Dates Dr. Abe Gilmore MD Primary Care Provider Active Start: December 16, 2024 End: December 16, 2024 Dr. Steven Donald MD Attending Provider Active S tart: December 16, 2024 End: December 16, 2024 Dr. Steven Donald MD Emergency Provider Active S tart: December 16, 2024 End: December 16, 2024 Team Status: Inactive Member Role Status Dates Dr. Abe Gilmore MD Primary Care Provider Active Start: December 25, 2024 End: December 25, 2024 Dr. Zain Merlos DO Emergency Provider Active S tart: December 25, 2024 End: December 25, 2024 Team Status: Active Member Role Status Dates Dr. Abe Gilmore MD Primary Care Provider Active Start: December 25, 2024 Dr. Steven Donald MD Emergency Provider Active S tart: December 25, 2024 Dr. Dennis Guidry MD Admit Provider Active Start: December 25, 2024 Dr. Dennis Guidry MD Attending Provider Active Start: December 25, 2024 Team Status: Inactive Member Role Status Dates Dr. Abe Gilmore MD Primary Care Provider Active Start: December 25, 2024 End: December 25, 2024 Dr. Zain Merlos DO Attending Provider Active S tart: December 25, 2024 End: December 25, 2024 Dr. Zain Merlos DO Emergency Provider Active S tart: December 25, 2024 End: December 25, 2024 Team Status: Inactive Member Role Status Dates Dr. Abe Gilmore MD Primary Care Provider Active Start: December 25, 2024 End: December 27, 2024 Dr. Steven Donald MD Emergency Provider Active S tart: December 25, 2024 End: December 27, 2024 Dr. Dennis Guidry MD Admit Provider Active Start: December 25, 2024 End: December 27, 2024 Dr. Dennis Guidry MD Attending Provider Active Start: December 25, 2024 End: December 27, 2024 Dr. Juliet Davis MD Other Provider Active St art: December 25, 2024 End: December 27, 2024 Dr. Nj Nielsen , DO Other Provider Active S tart: December 25, 2024 End: December 27, 2024 Dr. Efren Spencer MD Other Provider Active Start: December 25, 2024 End: December 27, 2024 Dr. Latonia Mariee MD Other Provider Active St art: December 25, 2024 End: December 27, 2024 Kristine Dorman NP, MASTER ELECTRICIAN-C Other Provider Active S tart: December 25, 2024 End: December 27, 2024 Delilah Justin NP-C Other Provider Active Start : December 25, 2024 End: December 27, 2024 Carolina Gooden NP-C Other Provider Active Sta rt: December 25, 2024 End: December 27, 2024 SENG Garcia Other Provider Active Start: December 25, 2024 End: December 27, 2024 SENG Ernandez Other Provider Active Start: Dec End: December 27, 2024 SENG Jorge Other Provider Active Start : December 25, 2024 End: December 27, 2024 Dr. Triston Villarreal MD Other Provider Active Start: December 25, 2024 End: December 27, 2024 Team Status: Active Member Role Status Dates Dr. Abe Gilmore MD Primary Care Provider Active Start: December 25, 2024 Dr. Steven Donald MD Emergency Provider Active S tart: December 25, 2024 Dr. Dennis Guidry MD Admit Provider Active Start: December 25, 2024 Dr. Dennis Guidry MD Other Provider Active Start: December 25, 2024 Dr. Juliet Davis MD Other Provider Active St art: December 25, 2024 Dr. Nj Nielsen , Other Provider Active S tart: December 25, 2024 Dr. Efren Spencer MD Other Provider Active Start: December 25, 2024 Dr. Latonia Mariee MD Other Provider Active St art: December 25, 2024 Kristine Dorman MASTER ELECTRICIAN, MASTER ELECTRICIAN-C Other Provider Active S tart: December 25, 2024 Delilah Justin MASTER ELECTRICIAN-C Other Provider Active Start : December 25, 2024 Carolina Gooden , MASTER ELECTRICIAN-C Other Provider Active Sta rt: December 25, 2024 Ha ELLSWORTH PA Other Provider Active Start: December 25, 2024 Anika Garcia PA Other Provider Active Start: Dec Anika Neal PA Other Provider Active Start : December 25, 2024 Dr. Dick Dominguez MD Attending Provider Active Start: December 25, 2024 Team Status: Active Member Role Status Dates Dr. Abe Gilmore MD Primary Care Provider Active Start: December 26, 2024 Dr. Steven Donald MD Emergency Provider Active S tart: December 26, 2024 Dr. Dennis Guidry MD Admit Provider Active Start: December 26, 2024 Dr. Dennis Guidry MD Other Provider Active Start: December 26, 2024 Dr. Juliet Davis MD Other Provider Active St art: December 26, 2024 Dr. Nj Nielsen DO Other Provider Active S tart: December 26, 2024 Dr. Efren Spencer MD Other Provider Active Start: December 26, 2024 Dr. Latonia Mariee MD Other Provider Active St art: December 26, 2024 Kristine Dorman MASTER ELECTRICIAN, MASTER ELECTRICIAN-C Other Provider Active S tart: December 26, 2024 Delilah Justin MASTER ELECTRICIAN-C Other Provider Active Start : December 26, 2024 Carolina Gooden , MASTER ELECTRICIAN-C Other Provider Active Sta rt: December 26, 2024 Ha ELLSWORTH PA Other Provider Active Start: December 26, 2024 Anika Garcia PA Other Provider Active Start: Dec Anika Neal PA Other Provider Active Start : December 26, 2024 Dr. Triston Villarreal MD Other Provider Active Start: December 26, 2024 Dr. Stan Stein MD Attending Provider Active Start: December 26, 2024 Team Status: Active Member Role Status Dates Dr. Abe Gilmore MD Primary Care Provider Active Start: December 27, 2024 Dr. Steven Donald MD Emergency Provider Active S tart: December 27, 2024 Dr. Dennis Guidry MD Admit Provider Active Start: December 27, 2024 Dr. Dennis Guidry MD Other Provider Active Start: December 27, 2024 Dr. Juliet Davis MD Other Provider Active St art: December 27, 2024 Dr. Nj Nielsen DO Other Provider Active S tart: December 27, 2024 Dr. Efren Spencer MD Other Provider Active Start: December 27, 2024 Dr. Latonia Mariee MD Other Provider Active St art: December 27, 2024 Kristine Dorman NP, MASTER ELECTRICIAN-C Other Provider Active S tart: December 27, 2024 Delilah Justin NP-C Other Provider Active Start : December 27, 2024 Carolina Gooden NP-C Other Provider Active Sta rt: December 27, 2024 SENG Garcia Other Provider Active Start: December 27, 2024 SENG Ernandez Other Provider Active Start: Dec SENG Jorge Other Provider Active Start : December 27, 2024 Dr. Triston Villarreal MD Other Provider Active Start: December 27, 2024 Dr. Stan Stein MD Attending Provider Active Start: December 27, 2024 Team Status: Active Member Role Status Dates Dr. Abe Gilmore MD Primary Care Provider Active Start: January 04, 2025 Dr. Bill Gary MD Referring Provider Active Sta rt: January 04, 2025 Dr. Bill Gary MD Emergency Provider Active Sta rt: January 04, 2025 Dr. Dennis Guidry MD Admit Provider Active Start: January 04, 2025 Dr. Dennis Guidry MD Attending Provider Active Start: January 04, 2025 Goals (unrecognized section and content) Goals may be documented in a n alternate sectionGoals may be documented in an alternate sectionGoals may be documented in an alternate sectionGoals may be documented in an alternate sectionGoals may be documented in an alternate sectionGoals may be documented in an alternate section FOR RECORDS PERTAINING TO PATIENTS WHO ARE OR HAVE BEEN ENROLLED IN A CHEMICAL DEPENDENCY/SUBSTANCEABUSE PROGRAM, SOME INFORMATION MAY BE OMITTED. This clinical summary was aggregated from multiple sources. Caution should be exercised in using it in the provision of clinical care. This summary normalizes information from multiple sources, and as a consequence, information in this document may materially change the coding, format and clinical context of patient data. In addition, data may be omitted in some cases. CLINICAL DECISIONS SHOULD BE BASED ON THE PRIMARY CLINICAL RECORDS. [facility] [employer] [facility]. provides no warranty or guarantee of the accuracy or completeness of information in this document.
[2025-01-05] MEDS: Acetaminophen 500 MG Tablet 1000 MG PO ×2 (02:07→14:47)
[2025-01-05 02:11] VITALS: BP 146/97; PULSE 88; RESP 18; TEMP 38.2; O2SAT 95
[2025-01-05] MEDS: Ketorolac 15 MG/ML Vial IV ×2 (03:07→20:38)
[2025-01-05] MEDS: 0.9% Saline Lock 10 ML Syringe IV ×2 (03:08→20:39)
[2025-01-05] MEDS: Piperacil/Tazobactam 3.375 GM in 0.9% Normal Saline (50mL MB+) 50 ML IV ×3 (04:18→20:37)
[2025-01-05] MEDS: 0.9% Normal Saline (1000mL) 1,000 ML 125 ML IV ×2 (04:18→11:26)
[2025-01-05 06:16] LABS: Absolute Lymphocyte Count 0.67 X10^3/uL (0.83-4.51); Absolute Neutrophil Count 10.6 X10^3/uL (2.0-7.7); Basophil# 0.04 X10^3/uL; Basophil% 0.3 % (0-1); Eosinophil# 0.02 X10^3/uL; Eosinophils% 0.2 % (0-5); Hematocrit 32.2 % (40-54); Hemoglobin 10.7 g/dL (13.0-16.5); Lymphocyte # 0.67 X10^3/ul (0.83-4.51); Lymphocyte % 5.6 % (19-41); Mean Corp Hgb Conc 33.2 g/dL (32-36); Mean Corpuscular Volume 90.2 fL (80-94); Mean Platelet Vol. 9.9 fl (6.2-12.0); Monocyte# 0.71 X10^3/uL; Monocyte% 5.9 % (0-10); NRBC Flagged by Analyzer 0 % (0-5); Neutrophil # 10.57 X10^3/uL (2.7-7.7); Neutrophil % 87.5 % (47-70); Platelet Count 239 K/mm3 (150-450); RBC Distribution Width CV 12.6 % (11.6-14.6); RBC Distribution Width SD 41.1 fl (35.1-43.9); Red Blood Count 3.57 M/mm3 (4.6-6.2); White Blood Count 12.1 K/mm3 (4.4-11.0)
[2025-01-05 06:51] LABS: Anion Gap 12 (5-15); BUN 27 mg/dL (4-19); BUN/Creat Ratio 22.8 RATIO (10-20); Calcium,Total 8.8 mg/dL (7.6-11.0); Carbon Dioxide 19.7 mmol/L (21.0-32.0); Chloride 104 mmol/L (98-108); EST Glomerular Filtration Rate 61 (>60); Estimated Creatinine Clearance 58.22 ml/min (50-250); Glucose 115 mg/dL (70-99); Potassium 4.2 mmol/L (3.3-5.1); Sodium Level 136 mmol/L (133-145)
--- NOTE | 2025-01-05 07:07 | PCM.PN.GU ---
Subjective Subjective 79 yo male , ct scan w stent and stone on iv antibiotics doing okay add no tomorrow for laser and stent removal then more antibiotics per ID to clear infection. Objective Data Objective Data Vital Signs: Vital Signs Temp Pulse Resp BP Pulse Ox O2 Del Method O2 Flow Rate 100.8 F H 88 18 146/97 H 95 Nasal Cannula 2 01/05/25 02:01/05/25 02:01/05/25 02:01/05/25 02:01/05/25 02:01/05/25 02:01/05/25 02:11 Oxygen Flow Rate (L/min) 2 Oxygen Delivery Method Nasal Cannula Weight: 100.1 kg Body Mass Index (BMI) 31.6 Intake & Output: Intake and Output for Last 24 Hours 01/03/25 01/04/25 01/05/25 23:59 23:59 23:59 Intake Total 1100 / 1100 1075.42 / 1075.42 Balance 1100 / 1100 1075.42 / 1075.42 Lab / Micro Data 01/05/25 04:46 01/05/25 04:46 Labs: Laboratory Results - last 24 hr 01/04/25 14:06: WBC 11.2 H, RBC 4.22 L, Hgb 12.5 L, Hct 37.8 L, MCV 89.6, MCH 29.6, MCHC 33.1, RDW Std Deviation 40.8, RDW Coeff of Renato 12.6, Plt Count 279, MPV 9.3, Immature Gran % (Auto) 0.500, Neut % (Auto) 87.6 H, Lymph % (Auto) 5.6 L, [place] % (Auto) 5.5, Eos % (Auto) 0.4, Baso % (Auto) 0.4, Absolute Neuts (auto) 9.8 H, Absolute Lymphs (auto) 0.62 L, Nucleated RBC % 0, Sodium 134, Potassium 4.6, Chloride 101, Carbon Dioxide 21.3, Anion Gap 12, BUN 26 H, Creatinine 1.18, Estim Creat Clear Calc 59.55, Est GFR (MDRD) Non-Af 62, BUN/Creatinine Ratio 22.3 H, Glucose 129 H, Lactic Acid 1.3, Calcium 9.9, Total Bilirubin 0.41, AST 25, ALT 36, Alkaline Phosphatase 104, Total Protein 7.7, Albumin 4.2, Globulin 3.5, Albumin/Globulin Ratio 1.2 01/04/25 15:11: Urine Color Yellow, Urine Clarity Cloudy, Urine pH 6.0, Ur Specific [place] 1.010, Urine Protein 100 H, Urine Glucose (UA) Normal, Urine Ketones Negative, Urine Occult Blood 150 H, Urine Nitrite Positive H, Urine Bilirubin Negative, Urine Urobilinogen Normal, Ur Leukocyte Esterase 500 H, Urine RBC 0-5 SEEN, Urine WBC >100 SEEN, Ur Squamous Epith Cells 0-5 SEEN, Urine Bacteria 2+, Urine Mucus 0 SEEN 01/05/25 04:46: WBC 12.1 H, RBC 3.57 L, Hgb 10.7 L, Hct 32.2 L, MCV 90.2, MCH 30.0, MCHC 33.2, RDW Std Deviation 41.1, RDW Coeff of Renato 12.6, Plt Count 239, MPV 9.9, Immature Gran % (Auto) 0.500, Neut % (Auto) 87.5 H, Lymph % (Auto) 5.6 L, [place] % (Auto) 5.9, Eos % (Auto) 0.2, Baso % (Auto) 0.3, Absolute Neuts (auto) 10.6 H, Absolute Lymphs (auto) 0.67 L, Nucleated RBC % 0, Sodium 136, Potassium 4.2, Chloride 104, Carbon Dioxide 19.7 L, Anion Gap 12, BUN 27 H, Creatinine 1.20, Estim Creat Clear Calc 58.22, Est GFR (MDRD) Non-Af 61, BUN/Creatinine Ratio 22.8 H, Glucose 115 H, Calcium 8.8 Radiography Diagnostic Testing: Radiology Impression Abdomen/Pelvis CT 01/04/25 17:26 IMPRESSION: No acute abnormalities. Details above. Bilateral nonobstructive nephrolithiasis. Left nephroureteral stent. Reading Location: [place] [address]
[2025-01-05 07:57] VITALS: O2SAT 95
[2025-01-05 08:00] VITALS: BP 125/56; PULSE 56; RESP 17; TEMP 36.6; O2SAT 98
[2025-01-05] MEDS: Losartan Potassium 50 MG Tablet PO (08:09)
[2025-01-05] MEDS: Pantoprazole Sodium 40 MG Tablet PO (08:10)
[2025-01-05] MEDS: Enoxaparin 40 MG/0.4 ML Syringe SC (08:10)
[2025-01-05] MEDS: Venlafaxine XR 150 MG Capsule PO (08:10)
--- NOTE | 2025-01-05 09:58 | PCM.CONS.GEN ---
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 On zosyn, OR planned with Dr. Guidry. Will follow, thank you (5) Complicated urinary tract infection: HPI Consult Data Date of Consult: 01/05/25 HPI Narrative Reason for Consultation: fever HPI Narrative: ANUPAMA MARSH, is a 79 M with ureteral stent in place, recent admit with PsA bacteremia from uti, discharged on iv zosyn. After zosyn finished, two days later fever returned, associated with mild L sided back pain. No cough, dyspnea, n/v/d. Some dysuria. Came back to ED, admitted, on zosyn, OR planned. Full ROS performed and neg except as noted above. [facility]LY [facility] Medical History Kidney stone on left side Loss of hearing Prostate disease Low iron Restless legs Hypertension History of MRSA infection Wears glasses Anxiety Arthritis High cholesterol Gastric reflux Non-smoker CPAP (continuous positive airway pressure) dependence History of pain when walking History of stress test History of echocardiogram Cardiology follow-up encounter BPH (benign prostatic hyperplasia) Dyslipidemia Nephrolithiasis Coronary artery disease Home Medications ?Medication ?Instructions ?Recorded ?Last Taken ?Type aspirin 81 mg tablet,delayed 81 mg PO QHS BLOOD THINNER 04/04/15 12/07/24 History release atorvastatin 40 mg tablet 40 mg PO QHS CHOLESTEROL 04/04/15 12/15/24 History finasteride 5 mg tablet 5 mg PO QHS URINATION 04/04/15 12/15/24 History tamsulosin 0.4 mg capsule 0.4 mg PO QHS URINATION 04/04/15 12/15/24 History doxazosin 4 mg tablet,extended 4 mg PO QHS HEART 01/23/17 12/15/24 History release 24 hr (Cardura XL) cholecalciferol (vitamin D3) 25 25 mcg PO DAILY SUPPLEMENT 12/17/21 12/15/24 History mcg (1,000 unit) capsule (Vitamin D3) gabapentin 100 mg capsule 200 mg PO QHS PAIN 12/17/21 12/15/24 History losartan 50 mg tablet 50 mg PO DAILY BP 12/17/21 12/16/24 History multivitamin 1 tab PO DAILY SUPPLEMENT 12/17/21 12/16/24 History tramadol 50 mg tablet 50 mg PO 4X/DAY PRN pain 12/08/24 12/15/24 History ibuprofen 600 mg tablet 600 mg PO Q6H PRN pain #20 tabs 12/14/24 12/16/24 Rx acetaminophen 500 mg capsule 1,000 mg PO Q4H PRN pain 12/16/24 12/16/24 History omeprazole 20 mg capsule,delayed 40 mg PO DAILY 12/16/24 12/16/24 History release venlafaxine 150 mg 150 mg PO DAILY 12/16/24 12/15/24 History capsule,extended release 24 hr levofloxacin 500 mg tablet 500 mg PO DAILY #7 tabs 12/27/24 Unknown Rx melatonin 10 mg tablet 10 mg PO QHS PRN sleep 01/05/25 Unknown History Allergy/AdvReac Type Severity Reaction Status Date / Time No Known Allergies Allergy Verified 01/04/25 12:40 Surgical History S/P umbilical hernia repair, follow-up exam Hx of bilateral cataract extraction Hx of hernia repair Hx of appendectomy History of carpal tunnel release of both wrists Hx of repair of right rotator cuff Hx of repair of left rotator cuff Hx of bilateral hip replacements Social History household members: spouse Smoking Status: Never smoker Physical Exam Const alert, oriented x3 and no apparent distress General Appearance: cooperative HEENT normocephalic and head/scalp atraumatic Eyes PERRL and EOMs intact bilaterally Neck supple and No nodes Resp normal air movement and clear to auscultation bilaterally Cardio regular rate and regular rhythm GI soft to palpation, non-tender and non-distended Extremity General Extremity: Negative for edema Skin no rashes or lesions noted Neuro CN's II-XII intact bilaterally Lab / Micro Data Attestation: I reviewed the patient's lab results. 01/05/25 04:46 01/05/25 04:46 Labs: Laboratory Results - last 24 hr 01/04/25 14:06: WBC 11.2 H, RBC 4.22 L, Hgb 12.5 L, Hct 37.8 L, MCV 89.6, MCH 29.6, MCHC 33.1, RDW Std Deviation 40.8, RDW Coeff of Renato 12.6, Plt Count 279, MPV 9.3, Immature Gran % (Auto) 0.500, Neut % (Auto) 87.6 H, Lymph % (Auto) 5.6 L, [place] % (Auto) 5.5, Eos % (Auto) 0.4, Baso % (Auto) 0.4, Absolute Neuts (auto) 9.8 H, Absolute Lymphs (auto) 0.62 L, Nucleated RBC % 0, Sodium 134, Potassium 4.6, Chloride 101, Carbon Dioxide 21.3, Anion Gap 12, BUN 26 H, Creatinine 1.18, Estim Creat Clear Calc 59.55, Est GFR (MDRD) Non-Af 62, BUN/Creatinine Ratio 22.3 H, Glucose 129 H, Lactic Acid 1.3, Calcium 9.9, Total Bilirubin 0.41, AST 25, ALT 36, Alkaline Phosphatase 104, Total Protein 7.7, Albumin 4.2, Globulin 3.5, Albumin/Globulin Ratio 1.2 01/04/25 15:11: Urine Color Yellow, Urine Clarity Cloudy, Urine pH 6.0, Ur Specific [place] 1.010, Urine Protein 100 H, Urine Glucose (UA) Normal, Urine Ketones Negative, Urine Occult Blood 150 H, Urine Nitrite Positive H, Urine Bilirubin Negative, Urine Urobilinogen Normal, Ur Leukocyte Esterase 500 H, Urine RBC 0-5 SEEN, Urine WBC >100 SEEN, Ur Squamous Epith Cells 0-5 SEEN, Urine Bacteria 2+, Urine Mucus 0 SEEN 01/05/25 04:46: WBC 12.1 H, RBC 3.57 L, Hgb 10.7 L, Hct 32.2 L, MCV 90.2, MCH 30.0, MCHC 33.2, RDW Std Deviation 41.1, RDW Coeff of Renato 12.6, Plt Count 239, MPV 9.9, Immature Gran % (Auto) 0.500, Neut % (Auto) 87.5 H, Lymph % (Auto) 5.6 L, [place] % (Auto) 5.9, Eos % (Auto) 0.2, Baso % (Auto) 0.3, Absolute Neuts (auto) 10.6 H, Absolute Lymphs (auto) 0.67 L, Nucleated RBC % 0, Sodium 136, Potassium 4.2, Chloride 104, Carbon Dioxide 19.7 L, Anion Gap 12, BUN 27 H, Creatinine 1.20, Estim Creat Clear Calc 58.22, Est GFR (MDRD) Non-Af 61, BUN/Creatinine Ratio 22.8 H, Glucose 115 H, Calcium 8.8 Imaging Radiology Impression Abdomen/Pelvis CT 01/04/25 17:26 IMPRESSION: No acute abnormalities. Details above. Bilateral nonobstructive nephrolithiasis. Left nephroureteral stent. Reading Location: [place] [address]
--- NOTE | 2025-01-05 14:28 | CHAPLAIN ---
Type of Pastoral Visit _x__ Initial Visit ___ Follow-up Visit ___ On-call Visit ___ General Patient Visit ___ Spiritual Assessment ___ Family Conference ___ Bereavement ___ Rapid Response ___ Code Blue ___ Other (describe below) Pastoral Care Referral From _x__ Patient ___ Family ___ Nurse ___ Physician ___ Marketing Research Coordinator ___ Sales Mgr ___ Other (describe below) Sacrament/Intervention _x__ Active listening ___ Anointing ___ Yarsanism ___ Bereavement ___ Communion ___ Katie exploration ___ ___ Life review _x__ Prayer ___ Reconciliation ___ Sacrament of Sick ___ Supportive presence ___ Wedding ___ Other (describe below) Pastoral Comments patient was seen just recently in a previous admission; pt and spouse are together and they review health situation and give updates; pt uses some humor to cope with his own frustrations at coming back to hospital; spouse asks for a prayer; casual conversation continued in support of the patient's return to hospital
[2025-01-05 15:00] VITALS: BP 131/59; PULSE 58; RESP 17; TEMP 37.7; O2SAT 100
--- NOTE | 2025-01-05 15:28 | CASEMGMT ---
[facility] Readmission Note Previous Admission: 12/25/24-12/27/24 Diagnosis: UTI DC Disposition:Home with [facility] for IV atb Current Admission: Admitted 01/04/25 Current Diagnosis: complicated UTI, failed outpt therapy Pt dc'd from index admission home with [facility] for IV atb teaching for pseudomonas UTI. Pt returned to ER yesterday with fevers, which was 2 days after IV atb were completed. Pt has had PICC line removed and has been dc'd from [facility]. Plan for pt to go to OR tomorrow to finish laser of stones and removal of stent. ID is c/s. Pt reports he took his medications as ordered. Pt son in law and dtr administered IV atb at home. Pt was supposed to follow up with today. Pt did not yet see PCP or ID since last hospitalization. Pt reports he is indep at home. Should pt need IV atb again, he would prefer the same set up with [facility] and [facility] for infusion Miro. Pt denies need for list of other options for either. If pt does not need IV atb, pt does not want any homegoing services. [facility] to follow. DC Plan: Home vs Home with [facility] pending OR and ID recs.
[2025-01-05 16:35] VITALS: TEMP 37
[2025-01-05] MEDS: Finasteride 5 MG Tablet PO (20:36)
[2025-01-05] MEDS: Tamsulosin HCl 0.4 MG Capsule PO (20:37)
[2025-01-05] MEDS: Atorvastatin Calcium 40 MG Tablet PO (20:37)
[2025-01-05] MEDS: Doxazosin 4 MG Tablet PO (20:37)
[2025-01-05] MEDS: MELATONIN 10 MG TABLET PO (20:38)
[2025-01-05] MEDS: 0.9% Normal Saline (250mL Bag) 250 ML 15 ML IV (20:38)
[2025-01-05] MEDS: Gabapentin 100 MG Capsule 200 MG PO (20:51)
[2025-01-05 20:54] VITALS: BP 126/64; PULSE 54; RESP 16; TEMP 37.2; O2SAT 98
[2025-01-06] VITALS (13 sets, daily range): BP systolic 122–154; BP diastolic 47–69; PULSE 47–57; RESP 15–18; TEMP 36.1–36.9; O2SAT 92–100; BMI 31.5
[2025-01-06] MEDS: Piperacil/Tazobactam 3.375 GM in 0.9% Normal Saline (50mL MB+) 50 ML IV ×3 (05:06→22:15)
[2025-01-06] MEDS: Acetaminophen 500 MG Tablet 1000 MG PO (05:06)
[2025-01-06 06:46] LABS: Absolute Lymphocyte Count 1.11 X10^3/uL (0.83-4.51); Absolute Neutrophil Count 8.7 X10^3/uL (2.0-7.7); Basophil# 0.05 X10^3/uL; Basophil% 0.5 % (0-1); Eosinophil# 0.25 X10^3/uL; Eosinophils% 2.3 % (0-5); Hematocrit 31.4 % (40-54); Hemoglobin 10.4 g/dL (13.0-16.5); Lymphocyte # 1.11 X10^3/ul (0.83-4.51); Lymphocyte % 10.4 % (19-41); Mean Corp Hgb Conc 33.1 g/dL (32-36); Mean Corpuscular Hgb 30.1 pg (27.0-32.0); Mean Corpuscular Volume 90.8 fL (80-94); Mean Platelet Vol. 9.8 fl (6.2-12.0); Monocyte# 0.58 X10^3/uL; Monocyte% 5.4 % (0-10); NRBC Flagged by Analyzer 0 % (0-5); Neutrophil # 8.68 X10^3/uL (2.7-7.7); Platelet Count 226 K/mm3 (150-450); RBC Distribution Width CV 12.8 % (11.6-14.6); RBC Distribution Width SD 42.3 fl (35.1-43.9); Red Blood Count 3.46 M/mm3 (4.6-6.2); White Blood Count 10.7 K/mm3 (4.4-11.0)
[2025-01-06 07:20] LABS: Anion Gap 10 (5-15); BUN 21 mg/dL (4-19); BUN/Creat Ratio 20.2 RATIO (10-20); Calcium,Total 8.6 mg/dL (7.6-11.0); Carbon Dioxide 20.1 mmol/L (21.0-32.0); Chloride 109 mmol/L (98-108); Creatinine, Serum 1.03 mg/dL (0.70-1.20); EST Glomerular Filtration Rate 73 (>60); Estimated Creatinine Clearance 67.83 ml/min (50-250); Glucose 105 mg/dL (70-99); Potassium 4.1 mmol/L (3.3-5.1); Sodium Level 139 mmol/L (133-145)
[2025-01-06] MEDS: Losartan Potassium 50 MG Tablet PO (08:30)
--- NOTE | 2025-01-06 10:31 | CASEMGMT ---
Addendum entered by Jessica Herrera 01/06/25 16:04: Spoke to unit secretary who will fax midline insertion for pt when it is completed. She is aware of fax number. Updated [facility] of this. Green sheet on chart for [facility] and [facility] for dc instructions. Addendum entered by Jessica Herrera 01/06/25 11:37: Paged Dr. Guidry, plan for pt to dc tomorrow morning. TC to Abby at [facility] to make aware. They are able to accept pt for SOC for tomorrow for 2nd dose of the day. Message to [facility] to make aware of MOLD CHECKER to see pt and time med will need to be at the pt home. RN CM into pt room, pt nurse present as well as pt . Pt and are aware of plan and deny any questions regarding this. Per nurse, freight broker agent has been notified for midline. Original Note: Received rx for IV atb at this time. TC to Abby at [facility], referral made. Will await decision to accept. Referral sent to [facility] via careport for IV atb per discussion with pt yesterday. Pt to have OR today.
--- NOTE | 2025-01-06 10:41 | PCM.PN.ID ---
Physical Exam Narrative Feeling ok, procedure planned, currently NPO. No fever, no abd pain. Const alert and no apparent distress General Appearance: cooperative Resp normal air movement and clear to auscultation bilaterally Cardio regular rate and regular rhythm GI soft to palpation, non-tender and non-distended Skin no rashes or lesions noted ID ID: Route of nutrition/ use of supplements: [] Nutritional Intake: [] IV Site: [] [place] Catheter: [] Assessment & Plan Assessment/Plan (1) History of ureter stent: (2) Hx of renal calculi: (3) Failure of outpatient treatment: (4) Rigor: PLAN: Recurrent PsA infection. On zosyn, OR planned with Dr. Guidry. Will order midline and 10 days outpt zosyn. Will follow, d/w nurse case manager (5) Complicated urinary tract infection:
--- NOTE | 2025-01-06 12:52 | PRE.ANES_ITS ---
ASA Classification* ASA Classification ASA Classification: 2 Assessment & Plan Anesthesia* Anesthesia Assessment Anesthesia Assessment: Discussed sedation and/or anesthesia options, risks, benefits, and alternatives with patient/parents/legal guardian/POA. Questions invited. The patient/parents/legal guardian/POA seems to understand and agrees to proceed with anesthesia plan. Reviewed the physical assessment, medical history, allergy history and patient home medications list prior to surgery/procedure/anesthetic and documented any changes. Performed airway and anesthesia risk assessments. Anesthesia Type Anesthesia Type: General Anesthesia Focused Assessment* Temperature: 97.9 F Pulse Rate: 47 Blood Pressure: 127/61 Respiratory Rate: 16 Pulse Ox: 98 Oxygen Flow Rate (L/min): 2 Airway Assessment Mouth opens: >3 cm Mallampati Score: II Labs Anesthesia Preop lab: CBC WBC 10.7 K/mm3 (4.4-11.0) 01/06/25 05:13 01/06/25 RBC 3.46 M/mm3 (4.6-6.2) L 01/06/25 05:13 01/06/25 Hgb 10.4 g/dL (13.0-16.5) L 01/06/25 05:13 5 Hct 31.4 % (40-54) L 01/06/25 05:13 01/06/25 Plt Count 226 K/mm3 (150-450) 01/06/25 05:13 01/06/25 CHEMISTRY Potassium 4.1 mmol/L (3.3-5.1) 01/06/25 05:13 01/06/25 Sodium 139 mmol/L (133-145) 01/06/25 05:13 01/06/25 Magnesium 2.2 mg/dL (1.5-2.2) 12/27/24 05:39 12/27/24 Phosphorus 2.1 mg/dL (2.7-4.5) L 12/27/24 05:39 12/27/24 BUN 21 mg/dL (4-19) H 01/06/25 05:13 01/06/25 Creatinine 1.03 mg/dL (0.70-1.20) 01/06/25 05:13 01/06/25 Glucose 105 mg/dL (70-99) H 01/06/25 05:13 01/06/25 POC Glucose 185 mg/dL (74-106) H 12/20/21 18:14 12/20/21 COAG Pre-Assessment Diagnosis/Proposed Procedure Planned Operative Procedure(s): Cystoscopy laser ureteroscopy stent removal. Anesthesia History Anesthesia History - internal medicine nurse practitioner: Anesthesia History - internal medicine nurse practitioner Hx Hospitalization No 12/08/24 14:19 Any Problems With Anesthesia No 01/06/25 02:49 Cholinesterase deficiency No 01/06/25 02:49 You/Your Family Experience No 01/06/25 02:49 fever (hyperthermia) with Relationship Recent Exposure to Contagious No 01/06/25 02:49 Disease Does patient have nerve No 01/06/25 02:49 stimulator Patient instructed to have device shut off --Does patient have Pacemaker No 01/06/25 11:22 or ICD? When Was Last Pacemaker Check QUESTION #4 FULL TEXT: You/Your Family Experience fever (hyperthermia) with Anesthesia Last Oral Intake Last Oral intake: Last Oral Intake NPO since 00:01 01/06/25 11:22 Meds taken in AM with sips of Yes 01/06/25 11:22 water? Meds patient instructed to see 01/06/25 11:22 take am of surgery PONV PONV - internal medicine nurse practitioner: PONV - internal medicine nurse practitioner Female HX of Motion Sickness HX of N/V After Surgery Non-Smoker Duration of Surgery greater than 60 minutes Number of Risk Factors PONV Score Height & Weight Height & Weight: Anesthesia: Height & Weight Height 5 ft 10 in 01/06/25 11:22 Weight: 99.79 kg 01/06/25 11:22 Body Mass Index (BMI) 31.5 01/06/25 11:22 Respiratory Assessment Respiratory Assessment - internal medicine nurse practitioner: Respiratory Tract Infection Hx - internal medicine nurse practitioner Hx Respiratory Tract Infection No 01/06/25 02:49 STOP Sleep Apnea STOP Sleep Apnea - internal medicine nurse practitioner: STOP Sleep Apnea - internal medicine nurse practitioner Hx Hypertension Yes 01/04/25 20:07 Hx Sleep Apnea Yes 01/04/25 20:07 CPAP Yes 01/04/25 20:07 BIPAP No 01/04/25 20:07 Do you snore loudly (louder than talking or can be heard Do you often feel tired/ fatigued/ sleepy during daytime? Has anyone observed you stop breathing during sleep? STOP Results Positive 01/04/25 20:07 QUESTION #5 FULL TEXT : Do you snore loudly (louder than talking or can be heard through closed doors)? Tobacco Use History Tobacco Use History - internal medicine nurse practitioner: Tobacco Use History - internal medicine nurse practitioner Tobacco Use Smoking Status Never smoker 01/04/25 20:07 Hx Tobacco Use No 01/04/25 20:07 Years Smoking Packs Smoked per Day Smoking Cessation Date was within the last 15 years Hx Smoking Cessation Date Hx Smoking Cessation Counseling Hematologic Medial History Hematologic Hx - internal medicine nurse practitioner: Hematologic Medical Hx - documentation manager Hx of Blood Transfusion No 01/04/25 20:07 Hx of Transfusion in last 3 No 01/04/25 20:07 Months Date of Last Transfusion (if within last 3 months) Ever experience any problems No 01/04/25 20:07 with transfusion(s)? Specify any problems Hx of Preganancy in last 3 N/A 01/04/25 20:07 Months Nurse Filling Out Transfusion DREDICK 01/04/25 20:07 & Questions: Date: 01/04/25 01/04/25 20:07 Time: 20:08 01/04/25 20:07 Patient unable to answer at this time (ie. confused, unrespo /Reproduction History /Reproductive History - internal medicine nurse practitioner: /Reproductive Hx- internal medicine nurse practitioner Hx Now Gestational Age (in weeks): EDC: Hx Hx Para Hx Section SAB No 12/08/24 14:19 Active Medications Active Medications: Current Medications Generic Name Dose Route Start Last Admin Trade Name Freq PRN Reason Stop Dose Admin Acetaminophen 1,000 mg 01/04/25 19:34 01/06/25 05:06 Acetaminophen 500 Mg Tablet PO 1,000 mg Q4H PRN Administration PAIN 1-10 Acetaminophen 650 mg 01/04/25 19:36 Acetaminophen 325 Mg Tablet PO Q6H PRN PRN Pain Score 1-10 Al Hydroxide/Mg Hydroxide 30 ml 01/04/25 19:36 Mag Hydrox/Al Hydrox/Simeth 30 Ml Udc PO Q4H PRN PRN HEARTBURN Atorvastatin Calcium 40 mg 01/04/25 22:00 01/05/25 20:37 Atorvastatin Calcium 40 Mg Tablet PO 40 mg QHS RYAN Administration Docusate Sodium 200 mg 01/04/25 22:00 01/06/25 08:28 Docusate Sodium 100 Mg Capsule PO Not Given BID [facility] Doxazosin Mesylate 4 mg 01/04/25 22:00 01/05/25 20:37 Doxazosin 4 Mg Tablet PO 4 mg QHS RYAN Administration Enoxaparin Sodium 40 mg 01/05/25 10:00 01/06/25 02:57 Enoxaparin 40 Mg/0.4 Ml Syringe SC Not Given DAILY@1000 [facility] Finasteride 5 mg 01/04/25 22:00 01/05/25 20:36 Finasteride 5 Mg Tablet PO 5 mg QHS RYAN Administration Gabapentin 200 mg 01/04/25 22:00 01/05/25 20:51 Gabapentin 100 Mg Capsule PO 200 mg QHS [facility] Administration Piperacillin Sod/Tazobactam 50 mls @ 12.5 mls/hr 01/04/25 22:00 01/06/25 09:10 Sod 3.375 gm/ Sodium Chloride IV Infused Q8 RYAN Infusion Sodium Chloride 250 mls @ 15 mls/hr 01/04/25 19:56 01/05/25 20:38 IV 0 mls/hr .[id number] PRN Infusion Saline Flush Sodium Chloride 250 mls @ 15 mls/hr 01/04/25 19:56 IV .[id number] PRN Additional IVPB Infusion Sodium Chloride 1,000 mls @ 15 mls/hr 01/06/25 12:45 IV .Q48H [facility] Ibuprofen 600 mg 01/06/25 20:00 Ibuprofen 600 Mg Tablet PO Q6H PRN PAIN 1-10 Ketorolac Tromethamine 15 mg 01/04/25 19:36 01/05/25 20:38 Ketorolac 15 Mg/Ml Vial IV 01/06/25 19:37 15 mg Q6H PRN PRN Administration PAIN 1-10 Losartan Potassium 50 mg 01/05/25 10:00 01/06/25 08:30 Losartan Potassium 50 Mg Tablet PO 50 mg DAILY [facility] Administration Protocol Melatonin 10 mg 01/05/25 07:14 01/05/25 20:38 Melatonin 10 Mg Tablet PO 10 mg QHS PRN Administration sleep Ondansetron HCl 4 mg 01/04/25 19:36 Ondansetron 4 Mg/2 Ml Vial IV Q8H PRN NAUSEA/VOMITING Pantoprazole Sodium 40 mg 01/05/25 10:00 01/06/25 08:29 Pantoprazole Sodium 40 Mg Tablet PO Not Given DAILY RYAN Sodium Chloride 10 - 40 ml 01/04/25 19:56 01/05/25 20:39 0.9% Saline Lock 10 Ml Syringe IV 10 ml UD PRN Administration SALINE FLUSH Tamsulosin HCl 0.4 mg 01/04/25 22:00 01/05/25 20:37 Tamsulosin Hcl 0.4 Mg Capsule PO 0.4 mg QHS RYAN Administration Venlafaxine HCl 150 mg 01/05/25 10:00 01/06/25 08:29 Venlafaxine Xr 150 Mg Capsule PO Not Given DAILY RYAN PFSH Medical History Kidney stone on left side Loss of hearing Prostate disease Low iron Restless legs Hypertension History of MRSA infection Wears glasses Anxiety Arthritis High cholesterol Gastric reflux Non-smoker CPAP (continuous positive airway pressure) dependence History of pain when walking History of stress test History of echocardiogram Cardiology follow-up encounter BPH (benign prostatic hyperplasia) Dyslipidemia Nephrolithiasis Coronary artery disease Home Medications ?Medication ?Instructions ?Recorded ?Last Taken ?Type aspirin 81 mg tablet,delayed 81 mg PO QHS BLOOD THINNE R 04/04/15 12/07/24 History release atorvastatin 40 mg tablet 40 mg PO QHS CHOLESTEROL 04/1012/15/24 History finasteride 5 mg tablet 5 mg PO QHS URINATION 12/15/24 History tamsulosin 0.4 mg capsule 0.4 mg PO QHS URINATION 04/1012/15/24 History doxazosin 4 mg tablet,extended 4 mg PO QHS HEART 01/2312/15/24 History release 24 hr (Cardura XL) cholecalciferol (vitamin D3) 25 25 mcg PO DAILY SUPPLE MENT 12/17/21 12/15/24 History mcg (1,000 unit) capsule (Vitamin D3) gabapentin 100 mg capsule 200 mg PO QHS PAIN 12/17/21 12/15/24 History losartan 50 mg tablet 50 mg PO DAILY BP 12/17/21 0 12/16/24 History multivitamin 1 tab PO DAILY SUPPLEMENT 12/16/24 History tramadol 50 mg tablet 50 mg PO 4X/DAY PRN pain 12/15/24 History ibuprofen 600 mg tablet 600 mg PO Q6H PRN pain #20 t abs 12/14/24 12/16/24 Rx acetaminophen 500 mg capsule 1,000 mg PO Q4H PRN pain 12/16/24 12/16/24 History omeprazole 20 mg capsule,delayed 40 mg PO DAILY 12/16/24 History release venlafaxine 150 mg 150 mg PO DAILY 12/16/24 History capsule,extended release 24 hr levofloxacin 500 mg tablet 500 mg PO DAILY #7 tabs 10/18 Unknown Rx melatonin 10 mg tablet 10 mg PO QHS PRN sleep 01/05 Unknown History piperacillin-tazobactam 3.375 3.375 g (56.25 mL) IV Q8 H 10 days 01/06/25 Unknown Rx gram/50 mL dextrose(iso-os) IV piggyback (Zosyn) Allergy/AdvReac Type Severity Reaction Status Date / Time No Known Allergies Allergy Verified 01/04/25 12:40 Surgical History S/P umbilical hernia repair, follow-up exam Hx of bilateral cataract extraction Hx of hernia repair Hx of appendectomy History of carpal tunnel release of both wrists Hx of repair of right rotator cuff Hx of repair of left rotator cuff Hx of bilateral hip replacements Social History household members: spouse Smoking Status: Never smoker Review of Systems (Anesthesia) ROS Narrative System reviewed and no additional complaints, except as documented.
[2025-01-06] MEDS: 0.9% Normal Saline (1000mL) 1,000 ML 15 ML IV (12:53)
--- NOTE | 2025-01-06 13:29 | PN.URO_ITS ---
Subjective Subjective Plan to proceed with laser lithotripsy of stone and stent removal and then he will go home with IV antibiotics tomorrow Objective Data Objective Data Vital Signs: Vital Signs Temp Pulse Resp BP Pulse Ox O2 Del Method O2 Flow Rate 97.9 F 47 L 16 127/61 H 98 Room Air 2 01/06/25 12:53 01/06/25 12:53 01/06/25 12:53 01/06/25 12:53 01/06/25 12:53 01/06/25 10:00 01/06/25 12:53 Oxygen Flow Rate (L/min) 2 Oxygen Delivery Method Room Air Weight: 99.79 kg Body Mass Index (BMI) 31.5 Intake & Output: Intake and Output for Last 24 Hours 01/04/25 01/05/25 01/06/25 23:59 23:59 23:59 Intake Total 1100 / 1100 3251.59 / 3251.59 100 / 100 Balance 1100 / 1100 3251.59 / 3251.59 100 / 100 Lab / Micro Data 01/06/25 05:13 01/06/25 05:13 Labs: Laboratory Results - last 24 hr 01/06/25 05:13: WBC 10.7, RBC 3.46 L, Hgb 10.4 L, Hct 31.4 L, MCV 90.8, MCH 30.1, MCHC 33.1, RDW Std Deviation 42.3, RDW Coeff of Renato 12.8, Plt Count 226, MPV 9.8, Immature Gran % (Auto) 0.400, Neut % (Auto) 81.0 H, Lymph % (Auto) 10.4 L, [place] % (Auto) 5.4, Eos % (Auto) 2.3, Baso % (Auto) 0.5, Absolute Neuts (auto) 8.7 H, Absolute Lymphs (auto) 1.11, Nucleated RBC % 0, Sodium 139, Potassium 4.1, Chloride 109 H, Carbon Dioxide 20.1 L, Anion Gap 10, BUN 21 H, Creatinine 1.03, Estim Creat Clear Calc 67.83, Est GFR (MDRD) Non-Af 73, BUN/Creatinine Ratio 20.2 H, Glucose 105 H, Calcium 8.6 Micro: Microbiology 01/04/25 15:11 Urine, Clean Catch Urine Culture - Final Pseudomonas aeruginosa
--- NOTE | 2025-01-06 13:31 | DCINST_ITS ---
Discharge Instructions Diet Discharge Diet: No restrictions DC O2, CPAP, BIPAP needs Home O2 Discharge instructions: No Dressing / Incision Discharge Activity: Return to Normal Activity and May Not Drive (while taking narcotic pain medications.) Dressing / Incision Call your doctor if you observe: Fever of 101 or Higher Follow Up Care Please Follow Up With: Dennis Guidry MD When: Call [phone] for an appointment Test Results: Test results from this visit will be discussed in further detail at your follow- up appointment, if applicable. Discharge Plan Admission Admit Date/Time: 01/04/25 19:13 Primary Reason for Your Visit: stone and UTI Attending Provider: Dennis Guidry Primary Care Provider: Abe Payne Consulting Providers: Triston Villarreal Discharge Orders/Prescriptions Prescriptions: New Zosyn in dextrose (iso-osm) 3.375 gram/50 mL piggyback 3.375 g IV Q8H 10 Days Rx Instructions: stop date 01/17/25. Dx: pseudomonas infection. Weekly bmp and cbc, fax to [phone]. Routine midline care per protocol. Continued atorvastatin 40 MG tablet 40 mg PO QHS aspirin 81 MG tablet 81 mg PO QHS Patient Comments: [facility] tamsulosin 0.4 MG capsule 0.4 mg PO QHS finasteride 5 MG tablet 5 mg PO QHS Patient Comments: PROSTATE Cardura XL 4 MG tablet extended release 24hr 4 mg PO QHS multivitamin Tablet 1 tab PO DAILY losartan 50 mg tablet 50 mg PO DAILY gabapentin 100 mg capsule 200 mg PO QHS cholecalciferol (vitamin D3) [Vitamin D3] 25 mcg (1,000 unit) Capsule 25 mcg PO DAILY venlafaxine 150 mg capsule,extended release 24hr 150 mg PO DAILY Patient Comments: PT TAKES AT BEDTIME acetaminophen 500 mg capsule 1,000 mg PO Q4H PRN (Reason: pain) omeprazole 20 mg capsule,delayed release(DR/EC) 40 mg PO DAILY tramadol 50 mg tablet 50 mg PO 4X/DAY PRN (Reason: pain) ibuprofen 600 mg tablet 600 mg PO Q6H PRN (Reason: pain) Qty: 20 0RF melatonin 10 mg tablet 10 mg PO QHS PRN (Reason: sleep) Discontinued levofloxacin 500 mg tablet 500 mg PO DAILY Qty: 7 0RF Referrals / Follow Up: Dennis Guidry MD [Med Staff - Active Staff] - Abe Payne MD [Primary Care Provider] - Disposition Disposition (needs filled in before D/C Order can be placed): Home, Self Care
--- NOTE | 2025-01-06 13:59 | OP.PCM_ITS ---
Operative Report (Standard) Operative Information Date of Procedure: 01/06/25 Pre-Operative Diagnosis: Urinary tract infection, left stent, left renal calculi Post-Operative Diagnosis: The same Surgery/Procedure Performed: Cystoscopy, left ureteroscopy laser lithotripsy of stones in the kidney, left stent removal, no stent net making supervisor: No Type of Anesthesia: General RN Documented Start/Stop Times: Operation Date: 01/06/25 13:30 Case Time Into Pre-Op 01/06/25 12:41 Anesthesia Start 01/06/25 13:28 Into Room 01/06/25 13:28 Procedure Start 01/06/25 13:43 Procedure Start Time: :43 Procedure Stop Time: 13:59 Select all DRAINS/GRAFTS/IMPLANTS that apply: None Estimated Blood Loss: None Specimen collected: No Description of surgery: 79-year-old male presented back to the hospital with fevers chills and infection he was growing Pseudomonas from his urine CAT scan was done that demonstrated still has remaining fragments in the left kidney these are probably infected probably need to remove these fragments in order to clear the infection so organ of Plitt proceed with laser lithotripsy has been on appropriate antibiotics his fevers have resolved and were also can remove the stent. Patient was taken back to the operating room after smooth induction of anesthesia he was placed in dorsolithotomy position went of the bladder with a 21 Armenian rigid cystourethroscope grabbed existing stent pulled out the meatus advanced a wire through the stent and over the wire went in with a flexible Olympus ureteroscope was able to get up to the kidney inspected upper pole midpole and lower pole found a collection of stones in the lower pole of the left kidney I then used a 200 ?m laser fiber and the thulium laser energy settin gs were for dusting 100 Hz and 0.2 J the stones were then lasered completely into dust particles once the sex successfully lasered completely then I worked my way down the ureter no other major fragments are seen along the course of the ureter patient no then prestent its own thing another stent will be necessary plus the stones were lasered completely into dust. Remove the ureteroscope during the patient's bladder anesthetic was reversed and we will keep him overnight for IV antibiotics and to go home with IV antibiotics to finish treating his Pseudomonas UTI successfully finished lasering all the remaining fragments of stones which could be the nidus for infection. He will follow-up in my office after he completes antibiotics and also follow-up with infectious disease. Surgical Findings: Stones in the lower pole of the left kidney lasered completely to dust, stent removed Complications Complications: No Admit VTE Documentation VTE Present on Admission: No VTE Mechan Device Prophylaxis: SCD's VTE Pharm Prophylaxis ordered?: No
--- NOTE | 2025-01-06 14:40 | PCM.POST.ANE ---
Anesthesia: Postop Eval I Current Vital Signs Temperature: 97 F Pulse Rate: 55 Blood Pressure: 122/60 Respiratory Rate: 16 Pulse Ox: 94 Oxygen Delivery Method: Room Air Assessment Airway patent: Yes Spontaneous unlabored respirations: Yes Mental status: Awake nausea: No Vomiting: No Anesthesia Complication: No Fluid Hydration Crystalloid volume administer (ml): 200 Total IV fluid infused: 200 Progress Note Anesthesia document: Postop Eval 1 completed: Yes
--- NOTE | 2025-01-06 14:42 | PCM.POSTANE2 ---
Anesthesia Postop Eval I Sum Postop Eval Completion status Anesthesia document: Postop Eval 1 completed: Yes Anesthesia Postop Eval I Summary Anesthesia Postop Eval I Summary: Anesthesia Postop Eval I: Assessment Summary Airway patent Yes 01/06/25 14:41 Spontaneous unlabored Yes 01/06/25 14:41 respirations Mental status Awake 01/06/25 14:41 nausea No 01/06/25 14:41 Vomiting No 01/06/25 14:41 Anesthesia Postop Eval I: Fluid Summary Crystalloid volume administer 200 01/06/25 14:41 (ml) Colloids volume administered ( ml) Blood Product volume administered (ml) Total IV fluid infused 200 01/06/25 14:41 Anesthesia Postop Eval I: Summary Notes Anesthesia Complication No 01/06/25 14:41 Anesthesia Complication Comment: Post-operative progress note Anesthesia: Postop Eval II Evaluation Mental status: Awake Pain Level: 0 nausea: No Vomiting: No
[2025-01-06] MEDS: Doxazosin 4 MG Tablet PO (22:15)
[2025-01-06] MEDS: Docusate Sodium 100 MG Capsule 200 MG PO (22:15)
[2025-01-06] MEDS: Finasteride 5 MG Tablet PO (22:15)
[2025-01-06] MEDS: Tamsulosin HCl 0.4 MG Capsule PO (22:15)
[2025-01-06] MEDS: Gabapentin 100 MG Capsule 200 MG PO (22:15)
[2025-01-06] MEDS: Atorvastatin Calcium 40 MG Tablet PO (22:15)
[2025-01-06] MEDS: 0.9% Saline Lock 10 ML Syringe IV (22:16)
[2025-01-06] MEDS: MELATONIN 10 MG TABLET PO (22:27)
[2025-01-07 02:30] VITALS: BP 154/59; PULSE 55; RESP 16; TEMP 36.8; O2SAT 97
[2025-01-07] MEDS: Piperacil/Tazobactam 3.375 GM in 0.9% Normal Saline (50mL MB+) 50 ML IV (05:17)
[2025-01-07 06:30] VITALS: BP 150/67; PULSE 51; RESP 16; TEMP 36.9; O2SAT 97
[2025-01-07 06:49] LABS: Absolute Lymphocyte Count 1.18 X10^3/uL (0.83-4.51); Absolute Neutrophil Count 6.2 X10^3/uL (2.0-7.7); Basophil# 0.05 X10^3/uL; Basophil% 0.6 % (0-1); Eosinophil# 0.22 X10^3/uL; Eosinophils% 2.7 % (0-5); Hematocrit 32.4 % (40-54); Hemoglobin 10.6 g/dL (13.0-16.5); Lymphocyte # 1.18 X10^3/ul (0.83-4.51); Lymphocyte % 14.5 % (19-41); Mean Corp Hgb Conc 32.7 g/dL (32-36); Mean Corpuscular Hgb 29.8 pg (27.0-32.0); Mean Platelet Vol. 9.7 fl (6.2-12.0); Monocyte# 0.47 X10^3/uL; Monocyte% 5.8 % (0-10); NRBC Flagged by Analyzer 0 % (0-5); Neutrophil # 6.16 X10^3/uL (2.7-7.7); Platelet Count 245 K/mm3 (150-450); RBC Distribution Width CV 12.7 % (11.6-14.6); RBC Distribution Width SD 42.1 fl (35.1-43.9); Red Blood Count 3.56 M/mm3 (4.6-6.2); White Blood Count 8.1 K/mm3 (4.4-11.0)
[2025-01-07 07:04] LABS: Anion Gap 10 (5-15); BUN 17 mg/dL (4-19); BUN/Creat Ratio 15.9 RATIO (10-20); Calcium,Total 8.9 mg/dL (7.6-11.0); Carbon Dioxide 22.3 mmol/L (21.0-32.0); Chloride 108 mmol/L (98-108); Creatinine, Serum 1.09 mg/dL (0.70-1.20); EST Glomerular Filtration Rate 69 (>60); Glucose 103 mg/dL (70-99); Potassium 4.2 mmol/L (3.3-5.1); Sodium Level 140 mmol/L (133-145)
--- NOTE | 2025-01-07 08:16 | CASEMGMT ---
Addendum entered by Maite Hansen 01/07/25 08:26: Confirmation received that fax went through successfully. Original Note: ROCIO GU NOTE: Midline insertion documentation faxed to I at this time. Brian ROJAS RN CM
[2025-01-07 08:26] VITALS: O2SAT 96
[2025-01-07 09:24] VITALS: BP 125/53; PULSE 55; PULSE 60; RESP 16; TEMP 36.9; O2SAT 98
[2025-01-07] MEDS: Venlafaxine XR 150 MG Capsule PO (09:32)
[2025-01-07] MEDS: Losartan Potassium 50 MG Tablet PO (09:32)
[2025-01-07] MEDS: Enoxaparin 40 MG/0.4 ML Syringe SC (09:32)
[2025-01-07] MEDS: Pantoprazole Sodium 40 MG Tablet PO (09:33)
--- NOTE | 2025-01-07 10:25 | NURSING ---
[address] Kimball that pt is discharged, he said yes.
--- NOTE | 2025-01-09 07:29 | PCM.DC.SUM ---
Providers Date of Admission: 01/04/25 Date of Discharge: 01/07/25 Primary Care Physician: Dr. Abe Payne MD Consultations 01/04/25 19:36 Consult: Infectious Disease Routine Consulting Provider: Triston Villarreal Reason for Consult: probably pseudomonas infection EMERGENT Consult: No MD Notified: Yes Date Notified: 01/04/25 Time Notified: 06:30 Method of Notification: Text Reason For Visit: COMPLICATED UTI, FAILED OUTPATINT THERAPY Diagnosis Discharge Diagnosis (1) History of ureter stent: Status: Acute Plan: plan to take to surgery Thursday if stable to finish laser stones and remove stent. (2) Hx of renal calculi: Status: Acute Code(s): Z87.442 - Personal history of urinary calculi (3) Failure of outpatient treatment: Status: Acute Code(s): Z78.9 - Other specified health status (4) Rigor: Status: Acute Code(s): R68.89 - Other general symptoms and signs (5) Complicated urinary tract infection: Status: Acute Code(s): N39.0 - Urinary tract infection, site not specified Plan: admit for IV antibiotics consult ID Medications at Discharge Home Medications aspirin 81 mg tablet,delayed release 81 mg PO QHS BLOOD THINNER 04/04/15 atorvastatin 40 mg tablet 40 mg PO QHS CHOLESTEROL 04/04/15 finasteride 5 mg tablet 5 mg PO QHS URINATION 04/04/15 tamsulosin 0.4 mg capsule 0.4 mg PO QHS URINATION 04/04/15 doxazosin 4 mg tablet,extended release 24 hr (Cardura XL) 4 mg PO QHS HEART 01/23/17 cholecalciferol (vitamin D3) 25 mcg (1,000 unit) capsule (Vitamin D3) 25 mcg PO DAILY SUPPLEMENT 12/17/21 gabapentin 100 mg capsule 200 mg PO QHS PAIN 12/17/21 losartan 50 mg tablet 50 mg PO DAILY BP 12/17/21 multivitamin 1 tab PO DAILY SUPPLEMENT 12/17/21 tramadol 50 mg tablet 50 mg PO 4X/DAY PRN pain 12/08/24 ibuprofen 600 mg tablet 600 mg PO Q6H PRN pain #20 tabs 12/14/24 acetaminophen 500 mg capsule 1,000 mg PO Q4H PRN pain 12/16/24 omeprazole 20 mg capsule,delayed release 40 mg PO DAILY 12/16/24 venlafaxine 150 mg capsule,extended release 24 hr 150 mg PO DAILY 12/16/24 melatonin 10 mg tablet 10 mg PO QHS PRN sleep 01/05/25 piperacillin-tazobactam 3.375 gram/50 mL dextrose(iso-os) IV piggyback (Zosyn) 3.375 g (56.25 mL) IV Q8H 10 days 01/06/25 Hospital Course Operations - (left ureteroscopy and laser) Weight / BMI Weight Weight: 99.79 kg Body Mass Index (BMI) 31.5 ABG / Lab / Microbiology Data 01/07/25 05:15 01/07/25 05:15 Microbiology: Microbiology 01/04/25 15:11 Urine, Clean Catch Urine Culture - Final Pseudomonas aeruginosa D/C Instructions Discharge Diet: No restrictions Call your doctor if you observe: Fever of 101 or Higher DC O2, CPAP, BIPAP Needs Home O2 Discharge instructions: No Please Follow Up With: Dennis Guidry MD When: Call [phone] for an appointment Meaningful Use Info Meaningful Use Meaningful Use Diagnoses (Choose all that apply): None applicable Ischemic Stroke Statin Dosing Therapy Reference: STATIN DOSE THERAPY REFERENCE: * Patients > 75 years receive moderate or high dose statin therapy. * Patients 75 years or YOUNGER should receive HIGH intensity statin dose unless contraindicated. You will be required to document reason for non-treatment if statin daily dose does not meet guidelines. HIGH DOSE STATIN THERAPY DAILY Atorvastatin > than or = to 40 mg Rosuvastatin > than or = to 20 mg Amlodipine + Atorvastatin > than or = to 2.5/40 mg Ezetimibe + Simvastatin 10/80 mg Simvastatin 80mg Discharge Plan Admission Admit Date/Time: 01/04/25 19:13 Primary Reason for Your Visit: stone and UTI Attending Provider: Dennis Guidry Primary Care Provider: Abe Payne Consulting Providers: Triston Villarreal Discharge Orders/Prescriptions Prescriptions: New Zosyn in dextrose (iso-osm) 3.375 gram/50 mL piggyback 3.375 g IV Q8H 10 Days Rx Instructions: stop date 01/17/25. Dx: pseudomonas infection. Weekly bmp and cbc, fax to [phone]. Routine midline care per protocol. Continued atorvastatin 40 MG tablet 40 mg PO QHS aspirin 81 MG tablet 81 mg PO QHS Patient Comments: [facility] tamsulosin 0.4 MG capsule 0.4 mg PO QHS finasteride 5 MG tablet 5 mg PO QHS Patient Comments: PROSTATE Cardura XL 4 MG tablet extended release 24hr 4 mg PO QHS multivitamin Tablet 1 tab PO DAILY losartan 50 mg tablet 50 mg PO DAILY gabapentin 100 mg capsule 200 mg PO QHS cholecalciferol (vitamin D3) [Vitamin D3] 25 mcg (1,000 unit) Capsule 25 mcg PO DAILY venlafaxine 150 mg capsule,extended release 24hr 150 mg PO DAILY Patient Comments: PT TAKES AT BEDTIME acetaminophen 500 mg capsule 1,000 mg PO Q4H PRN (Reason: pain) omeprazole 20 mg capsule,delayed release(DR/EC) 40 mg PO DAILY tramadol 50 mg tablet 50 mg PO 4X/DAY PRN (Reason: pain) ibuprofen 600 mg tablet 600 mg PO Q6H PRN (Reason: pain) Qty: 20 0RF melatonin 10 mg tablet 10 mg PO QHS PRN (Reason: sleep) Discontinued levofloxacin 500 mg tablet 500 mg PO DAILY Qty: 7 0RF Referrals / Follow Up: Dennis Guidry MD [Med Staff - Active Staff] - Abe Payne MD [Primary Care Provider] - Disposition Disposition (needs filled in before D/C Order can be placed): Home Health Service
== END 2025-01-07 10:45 | disposition home health service (06) | DRG 694 ==
LOC: ED 17:33 → MS3 19:16
PROVIDERS: Admitting Provider Urology; Emergency Provider Emergency Medicine; PCP Family Medicine; Referring Provider Emergency Medicine; Visit Provider Urology
PROC: 0TJ98ZZ Inspection of Ureter, Via Natural or Artificial Opening Endoscopic (ICD-10-PCS; CPT 52352; principal; 2025-01-06 13:20)
DX: N20.0 Calculus of kidney (principal); N39.0 Urinary tract infection, site not specified; B96.5 Pseudomonas (aeruginosa) (mallei) (pseudomallei) as the cause of diseases classified elsewhere; I10 Essential (primary) hypertension; I25.10 Atherosclerotic heart disease of native coronary artery without angina pectoris; E78.00 Pure hypercholesterolemia, unspecified; G47.33 Obstructive sleep apnea (adult) (pediatric); K21.9 Gastro-esophageal reflux disease without esophagitis; Z79.82 Long term (current) use of aspirin; Z79.899 Other long term (current) drug therapy
CPT/HCPCS: 36415; 74177; 76000; 80048; 80053; 81001; 83605; 85025; 87040; 87077; 87086; 87088; 87184; 87186; 93005; 99285; Q9967; A4216; C1769; J2405

== ENCOUNTER 2025-01-10 09:20 | Outpatient (CLI) | payer MEDICARE, OTHER, SELFPAY ==
[2025-01-10 12:39] LABS: Hematocrit 34.8 % (40-54); Hemoglobin 11.2 g/dL (13.0-16.5); Mean Corp Hgb Conc 32.2 g/dL (32-36); Mean Corpuscular Hgb 29.6 pg (27.0-32.0); Mean Corpuscular Volume 92.1 fL (80-94); Mean Platelet Vol. 9.9 fl (6.2-12.0); Platelet Count 252 K/mm3 (150-450); RBC Distribution Width CV 12.5 % (11.6-14.6); Red Blood Count 3.78 M/mm3 (4.6-6.2); White Blood Count 5.5 K/mm3 (4.4-11.0)
[2025-01-10 13:18] LABS: Anion Gap 10 (5-15); BUN 12 mg/dL (4-19); BUN/Creat Ratio 10.4 RATIO (10-20); Calcium,Total 9.3 mg/dL (7.6-11.0); Carbon Dioxide 24.2 mmol/L (21.0-32.0); Chloride 104 mmol/L (98-108); Creatinine, Serum 1.13 mg/dL (0.70-1.20); EST Glomerular Filtration Rate 66 (>60); Glucose 127 mg/dL (70-99); Potassium 4.5 mmol/L (3.3-5.1); Sodium Level 138 mmol/L (133-145)
== END 2025-01-10 23:59 | disposition home or self-care (01) ==
LOC: LABSPEC 09:21
PROVIDERS: PCP Family Medicine; Visit Provider Family Medicine
DX: I10 Essential (primary) hypertension (principal)
CPT/HCPCS: 80048; 85027

== ENCOUNTER → 2025-02-23 | Outpatient (CLI) | payer MEDICARE, OTHER, SELFPAY ==
[2025-02-23 12:32] LABS: Hematocrit 36.7 % (40-54); Hemoglobin 12.2 g/dL (13.0-16.5); Immature Granulocytes Count 0.010 X10^3/uL (0.0-0.0); Mean Corp Hgb Conc 33.2 g/dL (32-36); Mean Corpuscular Volume 90.4 fL (80-94); Mean Platelet Vol. 9.9 fl (6.2-12.0); NRBC Flagged by Analyzer 0 % (0-5); Platelet Count 172 K/mm3 (150-450); RBC Distribution Width CV 13.3 % (11.6-14.6); RBC Distribution Width SD 43.8 fl (35.1-43.9); Red Blood Count 4.06 M/mm3 (4.6-6.2); White Blood Count 5.1 K/mm3 (4.4-11.0)
[2025-02-23 16:45] LABS: AST(SGOT) 25 U/L (<=37); Alanine Aminotransfer ALT/SGPT 26 U/L (<=46); Albumin, Serum 4.2 g/dL (3.4-4.8); Alkaline Phosphatase 80 U/L (40-129); Anion Gap 11 (5-15); BUN 17 mg/dL (4-19); BUN/Creat Ratio 15.0 RATIO (10-20); Calcium,Total 9.6 mg/dL (7.6-11.0); Carbon Dioxide 24.5 mmol/L (21.0-32.0); Chloride 102 mmol/L (98-108); Globulin 2.9 g/dL (2.2-4.2); Glucose 101 mg/dL (70-99); Potassium 4.4 mmol/L (3.3-5.1)
[2025-02-23 16:46] LABS: CRP < 3.00 mg/L (0.0-3.0)
== END | disposition home or self-care (01) ==
LOC: MTLAB 10:51
PROVIDERS: PCP Family Medicine; Referring Provider Internal Medicine Rheumatology; Visit Provider Internal Medicine Rheumatology
DX: M17.0 Bilateral primary osteoarthritis of knee (principal); M16.0 Bilateral primary osteoarthritis of hip; M19.012 Primary osteoarthritis, left shoulder; M18.12 Unilateral primary osteoarthritis of first carpometacarpal joint, left hand; R79.89 Other specified abnormal findings of blood chemistry
CPT/HCPCS: 36415; 80053; 85025; 85652; 86140

== ENCOUNTER → 2025-06-05 | Outpatient (CLI) | payer MEDICARE, OTHER, SELFPAY ==
[2025-06-05 12:01] LABS: Hematocrit 39.8 % (40-54); Hemoglobin 13.3 g/dL (13.0-16.5); Immature Granulocytes Count 0.000 X10^3/uL (0.0-0.0); Mean Corp Hgb Conc 33.4 g/dL (32-36); Mean Corpuscular Volume 89.0 fL (80-94); Mean Platelet Vol. 9.3 fl (6.2-12.0); NRBC Flagged by Analyzer 0 % (0-5); Platelet Count 152 K/mm3 (150-450); RBC Distribution Width CV 12.8 % (11.6-14.6); RBC Distribution Width SD 41.8 fl (35.1-43.9); Red Blood Count 4.47 M/mm3 (4.6-6.2); White Blood Count 5.5 K/mm3 (4.4-11.0)
[2025-06-05 12:26] LABS: AST(SGOT) 28 U/L (<=37); Alanine Aminotransfer ALT/SGPT 28 U/L (<=46); Albumin, Serum 4.2 g/dL (3.4-4.8); Alkaline Phosphatase 71 U/L (40-129); Anion Gap 9 (5-15); BUN 18 mg/dL (4-19); BUN/Creat Ratio 18.4 RATIO (10-20); Calcium,Total 9.5 mg/dL (7.6-11.0); Carbon Dioxide 26.4 mmol/L (21.0-32.0); Chloride 103 mmol/L (98-108); Globulin 2.7 g/dL (2.2-4.2); Glucose 109 mg/dL (70-99); Potassium 4.1 mmol/L (3.3-5.1)
== END | disposition home or self-care (01) ==
LOC: MTLAB 10:55
PROVIDERS: PCP Family Medicine; Referring Provider Internal Medicine Rheumatology; Visit Provider Internal Medicine Rheumatology
DX: M17.0 Bilateral primary osteoarthritis of knee (principal); M16.0 Bilateral primary osteoarthritis of hip; Z79.899 Other long term (current) drug therapy
CPT/HCPCS: 36415; 80053; 85025